=== PATIENT | female | born 1985 | race Caucasian/White ===

== ENCOUNTER 2018-06-20 15:36 | Inpatient (IN) | payer BC, SELFPAY ==
[2018-06-20] MEDS: Lactated Ringers 1,000 ML 150 ML IV (15:45)
[2018-06-20] MEDS: Normal Saline Flush 10 ML SYR IVP ×2 (16:44→18:05)
[2018-06-20] MEDS: DEXTROSE 5%-0.45% SALINE 1,000 ML 250 ML IV (18:48)
[2018-06-20] MEDS: DEXTROSE 5%-0.45% SALINE 1,000 ML 150 ML IV (22:49)
[2018-06-20] MEDS: Metoclopramide 10 MG/2 ML VIAL IV (22:49)
[2018-06-21] MEDS: Ondansetron 4 MG/2 ML VIAL IVP ×3 (02:05→17:49)
[2018-06-21] MEDS: Metoclopramide 10 MG/2 ML VIAL IV ×3 (07:55→22:13)
[2018-06-21] MEDS: Normal Saline 50 ML 200 ML ×3 (08:01→13:56)
[2018-06-21] MEDS: DEXTROSE 5%-0.45% SALINE 1,000 ML 150 ML IV (08:26)
[2018-06-21] MEDS: DEXTROSE 5%-0.45% SALINE 1,000 ML 120 ML IV (17:48)
[2018-06-22] MEDS: DEXTROSE 5%-0.45% SALINE 1,000 ML 120 ML IV ×3 (02:10→15:39)
[2018-06-22] MEDS: Metoclopramide 10 MG/2 ML VIAL IV ×3 (05:54→22:51)
[2018-06-22] MEDS: Normal Saline Flush 10 ML SYR IVP ×2 (05:55→15:39)
[2018-06-22 07:40] LABS: ALT 22 U/L (12-78); AST 19 U/L (15-37); Albumin 2.9 g/dL (3.4-5.0); Alkaline Phosphatase 39 U/L (46-116); Anion Gap 8.1 mmol/L (3-11); BUN 4 mg/dL (7-18); Bilirubin, Total 0.3 mg/dL (0.2-1.0); CO2 20.9 mmol/L (21.0-32.0); CREATININE 0.57 mg/dL (0.55-1.02); Calcium 7.8 mg/dL (8.5-10.1); Chloride 107 mmol/L (98-107); Glucose 95 mg/dL (70-100); Potassium 3.6 mmol/L (3.5-5.1); Sodium 136 mmol/L (136-145)
[2018-06-22 20:18] VITALS: BP 89/54; PULSE 54; RESP 18; TEMP 37.9; O2SAT 97
[2018-06-22] MEDS: Pantoprazole 40 MG VIAL IVP (21:01)
[2018-06-22] MEDS: Promethazine 25 MG TAB 6.25 MG PO (21:02)
[2018-06-23] MEDS: DEXTROSE 5%-0.45% SALINE 1,000 ML 120 ML IV (00:12)
[2018-06-23] MEDS: Metoclopramide 10 MG/2 ML VIAL IV ×3 (05:18→21:14)
--- NOTE | 2018-06-23 06:33 | W.PM.PROGNOT ---
Date of service: 06/22/18 Time of Service: 10:30 Assessment and Plan (1) Hyperemesis affecting , antepartum: Current visit: Yes Status: Acute Will continue antiemetics. If possible discharge home today. Will reevaluate in the afternoon. Subjective Interval history since last seen: Pain has had persistent nausea and dry heaving overnight. Unable to tolerate PO. No fevers chills. Has been out of bed within room. Objective Objective Clinical Data: Abnormal lab results 06/22/18 Range/Units 06:40 Carbon Dioxide 20.9 L (21.0-32.0) mmol/L BUN 4 L (7-18) mg/dL Calcium 7.8 L (8.5-10.1) mg/dL Alkaline Phosphatase 39 L (46-116) U/L Total Protein 6.0 L (6.4-8.2) g/dL Albumin 2.9 L (3.4-5.0) g/dL Vital Signs Temp 100.2 F H 06/22/18 20:18 Pulse 54 L 06/22/18 20:18 Resp 18 06/22/18 20:18 BP 89/54 L 06/22/18 20:18 Pulse Ox 97 06/22/18 20:18 Intake & Output 06/22/18 06/22/18 06/23/18 11:59 23:59 11:59 Intake Total 8 / 1718 1922 / 1922 1592 / 1592 Output Total 250 / 250 800 / 800 Balance 1718 / 1718 1672 / 1672 792 / 792 Weight 134 lb 7.712 oz Intake: IV 1718 / 1718 1921 / 1921 1592 / 1592 Output: Urine 250 / 250 800 / 800 Other: Urine Color Yellow Yellow Urine Appearance Clear Clear Urine Odor Normal None Voiding Methods Toilet Toilet Laboratory Results Sodium 136 mmol/L (136-145) 06/22/18 06:40 Potassium 3.6 mmol/L (3.5-5.1) 06/22/18 06:40 Chloride 107 mmol/L (98-107) 06/22/18 06:40 Carbon Dioxide 20.9 mmol/L (21.0-32.0) L 06/22/18 06:40 Anion Gap 8.1 mmol/L (3-11) 09/06/18 06:40 BUN 4 mg/dL (7-18) L 06/22/18 06:40 Creatinine 0.57 mg/dL (0.55-1.02) 06/22/18 06:40 Estimated GFR/1.73 m2 >= 60.00 (mL/min/1.73m2) 06/22/18 06:40 Glucose 95 mg/dL (70-100) 06/22/18 06:40 Calcium 7.8 mg/dL (8.5-10.1) L 06/22/18 06:40 Total Bilirubin 0.3 mg/dL (0.2-1.0) 06/22/18 06:40 AST 19 U/L (15-37) 06/22/18 06:40 ALT 22 U/L (12-78) 06/22/18 06:40 Alkaline Phosphatase 39 U/L (46-116) L 06/22/18 06:40 Total Protein 6.0 g/dL (6.4-8.2) L 06/22/18 06:40 Albumin 2.9 g/dL (3.4-5.0) L 06/22/18 06:40
[2018-06-23 07:25] VITALS: BP 84/52; PULSE 52; RESP 20; TEMP 36.7; O2SAT 97
[2018-06-23] MEDS: DEXTROSE 5%-0.45% SALINE 1,000 ML 150 ML IV ×2 (09:13→18:32)
[2018-06-23] MEDS: Normal Saline Flush 10 ML SYR IVP ×3 (09:14→16:37)
[2018-06-23 10:52] LABS: ALT 23 U/L (12-78); AST 21 U/L (15-37); Albumin 2.9 g/dL (3.4-5.0); Alkaline Phosphatase 38 U/L (46-116); Anion Gap 5.8 mmol/L (3-11); BUN 4 mg/dL (7-18); Bilirubin, Total 0.4 mg/dL (0.2-1.0); CO2 22.2 mmol/L (21.0-32.0); CREATININE 0.52 mg/dL (0.55-1.02); Calcium 7.9 mg/dL (8.5-10.1); Chloride 108 mmol/L (98-107); Glucose 96 mg/dL (70-100); Potassium 3.5 mmol/L (3.5-5.1); Sodium 136 mmol/L (136-145); Total Protein 5.9 g/dL (6.4-8.2)
--- NOTE | 2018-06-23 10:59 | PHARADMIT ---
Addendum entered by Chidi Marie III 06/24/18 11:17: Pharmacy Note Subjective First Trimester patient with Hyperemesis, unable to eat. Provider has decided to implment TPN to meet nutritional neeeds Objective VS-OK pain: 6/10 K+3.2 Na-138 SCr-0.47 ALBUMIN- 2.9 bg-99 No BM Assessment Basic TPN formula with Fats (separate) Plan Watch Lytes Original Note: Admission Pharmacy Clinical Review Mild Hyperemesis in 1st Trimester Code Status Full Code Current Weight wgt- 61 kg Renally Cleared and Narrow Therapeutic Index Meds CrCl~ 92.75 mL/min Meds-OK QTc Value / Action Taken program na BP Control, Fever BP- 84/52 Tmax-37.9C Electrolytes reviewed Na- 136 K+3.5 DVT Prophylaxis nO Opiate Usage / Scheduled Bowel Regimen Ordered No No Plt/SCr for Heparin / Enoxaparin SCr-0.52 INR for Warfarin na H/H stable, WBC/Bands na Antibiotic appropriateness none Cultures and Sensitivities none Surgical ABX d/c within 24 hr none DM control / Insulin Dosing BG- 96 Heart Failure (Check EF%) (ASH's, B-Block, Diuretics) None IV to PO Switch No Home Meds Reviewed Yes Home Meds Not Ordered , Sertraline, Tylenl-PM Comments
[2018-06-23] MEDS: Butalbital/Acetaminophen/Caffeine 50/325/40 TAB PO (11:48)
[2018-06-23 16:33] VITALS: BP 88/50; PULSE 65; RESP 17; TEMP 36.7; O2SAT 100
[2018-06-23] MEDS: fentaNYL 100 MCG/2 ML VIAL 50 MCG IVP (16:37)
[2018-06-23] MEDS: Promethazine 25 MG TAB 6.25 MG PO ×2 (16:38→23:59)
--- NOTE | 2018-06-23 17:32 | DI.RAD_ITS ---
SYMPTOM/DIAGNOSIS: POST PICC LINE PLACEMENT PORTABLE CHEST: There are no prior comparison exams. The heart size is normal. A PICC line is seen with the tip projecting in the superior vena cava. The lungs are suboptimally inflated but grossly clear. No pneumothorax is seen. IMPRESSION: Satisfactory placement of PICC line.
--- NOTE | 2018-06-23 17:35 | NUR.NOTE ---
Nursing Note: At 1730 on 06/23/18, this RN took a verbal consent/TVO readback from Artur Noel MD to allow the radiology clerk to obtain an x-ray to assess for correct PICC line placement. Per MD instruction, radiology clerk to shield pt.'s abdomen. On radiology clerk's form, this RN wrote a note stating that verbal consent/TVO readback had been obtained. RN informed radiology clerk of MD instructions. RN will reassess as necessary.
--- NOTE | 2018-06-23 17:52 | DI.VRAD_ITS ---
EXAM: XR Chest, 1 View EXAM DATE/TIME: 06/23/2018 5:12 PM CLINICAL HISTORY: 33 years old, female; Device placement; Picc TECHNIQUE: XR of the chest, 1 view. COMPARISON: No relevant prior studies available. FINDINGS: Tubes, catheters and devices: There is a right-sided PICC line with its tip at the level of the SVC. Lungs: Unremarkable. No consolidation. Pleural space: Unremarkable. No pleural effusion. No pneumothorax. Heart/Mediastinum: Unremarkable. No cardiomegaly. Bones/joints: Unremarkable for patient's age. IMPRESSION: Right-sided PICC line in place. Dictated and Authenticated by: Tao Tavera MD. Ordering:ESMER YAN MD
[2018-06-23 19:42] LABS: Abs Immature Grans 0.01 k/cumm (0.0-0.09); Absolute Basophil Count 0.02 k/cumm (0.0-0.2); Absolute Eosinophil Count 0.08 k/cumm (0.0-0.7); Absolute Lymphocyte Count 2.88 k/cumm (1.2-3.4); Absolute Monocyte Count 0.61 k/cumm (0.11-0.7); Absolute Neutrophil Count 2.65 k/cumm (1.2-6.7); Basophils % 0.3; Eosinophils % 1.3; HCT 32.6 % (36.0-46.0); HGB 11.1 g/dL (12.0-15.5); Immature Grans % 0.2; Lymphocytes % 46.1; Mean Corpuscular Hemoglobin 29.8 pg (27.0-33.0); Mean Corpuscular Volume 87.6 fL (80-95); Mean Platelet Volume 10.1 fL (8.0-11.0); Monocytes % 9.8; Neutrophils % 42.3; Platelet Count 182 x1000/uL (130-400); RBC 3.72 m/cumm (4.00-5.20); RBC Distribution Width 13.6 % (11.7-14.6); White Blood Cell Count 6.25 k/cumm (4.4-10.8)
[2018-06-23 19:44] LABS: ALT 22 U/L (12-78); AST 18 U/L (15-37); Albumin 3.1 g/dL (3.4-5.0); Alkaline Phosphatase 41 U/L (46-116); Anion Gap 7.7 mmol/L (3-11); BUN 3 mg/dL (7-18); Bilirubin, Total 0.4 mg/dL (0.2-1.0); CO2 22.3 mmol/L (21.0-32.0); Calcium 8.1 mg/dL (8.5-10.1); Chloride 107 mmol/L (98-107); Glucose 76 mg/dL (70-100); Potassium 3.4 mmol/L (3.5-5.1); Sodium 137 mmol/L (136-145); Total Protein 5.8 g/dL (6.4-8.2)
[2018-06-23] MEDS: Pantoprazole 40 MG VIAL IVP (21:13)
[2018-06-23 23:47] VITALS: BP 85/47; PULSE 47; RESP 16; TEMP 37.4; O2SAT 99
[2018-06-24] MEDS: DEXTROSE 5%-0.45% SALINE 1,000 ML 150 ML IV ×2 (00:32→06:37)
[2018-06-24 00:39] VITALS: PULSE 52
[2018-06-24] MEDS: Metoclopramide 10 MG/2 ML VIAL IV ×3 (06:28→22:08)
[2018-06-24 07:48] LABS: ALT 22 U/L (12-78); AST 17 U/L (15-37); Albumin 2.9 g/dL (3.4-5.0); Alkaline Phosphatase 40 U/L (46-116); Anion Gap 9.4 mmol/L (3-11); BUN 3 mg/dL (7-18); Bilirubin, Total 0.5 mg/dL (0.2-1.0); CO2 21.6 mmol/L (21.0-32.0); CREATININE 0.47 mg/dL (0.55-1.02); Calcium 7.7 mg/dL (8.5-10.1); Chloride 107 mmol/L (98-107); Glucose 99 mg/dL (70-100); Potassium 3.2 mmol/L (3.5-5.1); Sodium 138 mmol/L (136-145); Total Protein 5.8 g/dL (6.4-8.2)
[2018-06-24 07:50] VITALS: BP 82/46; PULSE 49; RESP 16; TEMP 37.3; O2SAT 98
--- NOTE | 2018-06-24 07:54 | PDOC.CMIN ---
- If Service Date Differs Date of service: 06/24/18 Time of Service: 07:55 Care Management Initial Assess REASON FOR HOSPITALIZATION:: Hyperemesis first trimester. 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 PREVIOUS FUNCTIONAL STATUS/SOCIAL/FAMILY SUPPORTS:: Jerome lives in her own home with her spouse Martin and her three year old son. 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 She is independent with ADL's and transportation. She reports a suppotive family. CURRENT FUNCTIONAL STATUS:: Jerome makes good eye contact she states she continues to have nausea. She is being treated with multiple antimetics and she now has a PICC line with TPN. She states that she had hyperemsis in the past with her previous . She states the last time it lasted about 4 months. ADVANCE DIRECTIVES:: None on file Has patient been provided with information about the portal?: Yes Did the patient sign up for the portal?: No (previously signed up) CODE STATUS:: Full Code INSURANCE COVERAGE / FINANCIAL ISSUES:: BCBS CURRENT HOME/COMMUNITY SERVICES/EQUIPMENT:: None currently PRIMARY CARE PHYSICIAN:: Lucia Taylor APRN POTENTIAL DISCHARGE NEEDS:: Follow up appointment with OBGYN PATIENT/FAMILY EDUCATION NEEDS:: Discharge education, medications, follow up plan of care, ask me three education and self management discussion. ANTICIPATED BARRIERS TO DISCHARGE:: None identified. TRANSPORTATION:: Via private car with spouse at time of discharge. PLAN:: Jerome is receving antimetics for continued nausea. She had a PICC line placed on 06/23/18. She has been started on TPN. Anticipate she will not need addtional services at time of discharge. CM to continue to provide support to Pt, family and care team ongoing discharge planning.
--- NOTE | 2018-06-24 07:57 | W.PM.PROGNOT ---
Date of service: 06/24/18 Time of Service: 07:57 Assessment and Plan (1) Hyperemesis affecting , antepartum: Current visit: Yes Status: Acute (2) Poor nutritional intake affecting : Current visit: Yes Status: Acute I had a lengthy discussion with the patient and her last evening. I expressed significant concerns regarding her poor nutritional intake over the last week. My recommendation was to proceed with PICC line placement and institution of TPN at least in the short term. In terms of discharge goals, the patient must be able to tolerate PO to at least some degree even if her nausea and vomiting is not completely resolved which in all likelihood it will not be. Subjective Interval history since last seen: Patient continues to have nausea with poor PO intake overnight. She did tolerate some ensure last evening and this morning. She does report that she feels week and dizzy. Headache yesterday is essentially resolved. PICC line was placed successfully last evening as well. Objective Objective Clinical Data: Abnormal lab results 06/23/18 06/23/18 06/23/18 Range/Units 06:45 18:30 18:30 RBC 3.72 L (4.00-5.20) m/cumm Hgb 11.1 L (12.0-15.5) g/dL Hct 32.6 L (36.0-46.0) % Potassium 3.4 L (3.5-5.1) mmol/L Chloride 108 H (98-107) mmol/L BUN 4 L 3 L (7-18) mg/dL Creatinine 0.52 L 0.50 L (0.55-1.02) mg/dL Calcium 7.9 L 8.1 L (8.5-10.1) mg/dL Alkaline Phosphatase 38 L 41 L (46-116) U/L Total Protein 5.9 L 5.8 L (6.4-8.2) g/dL Albumin 2.9 L 3.1 L (3.4-5.0) g/dL 06/24/18 Range/Units 06:40 RBC (4.00-5.20) m/cumm Hgb (12.0-15.5) g/dL Hct (36.0-46.0) % Potassium 3.2 L (3.5-5.1) mmol/L Chloride (98-107) mmol/L BUN 3 L (7-18) mg/dL Creatinine 0.47 L (0.55-1.02) mg/dL Calcium 7.7 L (8.5-10.1) mg/dL Alkaline Phosphatase 40 L (46-116) U/L Total Protein 5.8 L (6.4-8.2) g/dL Albumin 2.9 L (3.4-5.0) g/dL Vital Signs Temp 99.3 F 06/23/18 23:47 Pulse 52 L 06/24/18 00:39 Resp 16 06/23/18 23:47 BP 85/47 L 06/23/18 23:47 Pulse Ox 99 06/23/18 23:47 Intake & Output 06/23/18 06/23/18 06/24/18 11:59 23:59 11:59 Intake Total 2712 / 2712 1000 / 1000 1812.5 / 1812.5 Output Total 800 / 800 450 / 450 Balance 1912 / 1912 550 / 550 1812.5 / 1812.5 Intake: IV 2592 / 2592 1000 / 1000 1812.5 / 1812.5 Oral 120 / 120 Output: Urine 800 / 800 450 / 450 Other: Urine Color Yellow Urine Appearance Clear Clear Urine Odor None None Comment Patient states she has been OOB to toilet regularly and voiding in adequate amounts. She denies any urinary issues. Voiding Methods Toilet Toilet Laboratory Results WBC 6.25 k/cumm (4.4-10.8) 06/23/18 18:30 RBC 3.72 m/cumm (4.00-5.20) L 06/23/18 18:30 Hgb 11.1 g/dL (12.0-15.5) L 06/23/18 18:30 Hct 32.6 % (36.0-46.0) L 06/23/18 18:30 MCV 87.6 fL (80-95) 06/23/18 18:30 MCH 29.8 pg (27.0-33.0) 06/23/18 18:30 MCHC 34.0 g/dL (32.0-36.0) 06/23/18 18:30 RDW 13.6 % (11.7-14.6) 06/23/18 18:30 Plt Count 182 x1000/uL (130-400) 06/23/18 18:30 MPV 10.1 fL (8.0-11.0) 06/23/18 18:30 Immature Gran % 0.2 06/23/18 18:30 Neutrophils % 42.3 06/23/18 18:30 Lymphocytes % 46.1 06/23/18 18:30 Monocytes % 9.8 06/23/18 18:30 Eosinophils % 1.3 06/23/18 18:30 Basophils % 0.3 06/23/18 18:30 Absolute Neutrophils 2.65 k/cumm (1.2-6.7) 06/23/18 18:30 Absolute Lymphocytes 2.88 k/cumm (1.2-3.4) 06/23/18 18:30 Absolute Monocytes 0.61 k/cumm (0.11-0.7) 06/23/18 18:30 Absolute Eosinophils 0.08 k/cumm (0.0-0.7) 06/23/18 18:30 Absolute Basophils 0.02 k/cumm (0.0-0.2) 06/23/18 18:30 Sodium 138 mmol/L (136-145) 06/24/18 06:40 Potassium 3.2 mmol/L (3.5-5.1) L 06/24/18 06:40 Chloride 107 mmol/L (98-107) 06/24/18 06:40 Carbon Dioxide 21.6 mmol/L (21.0-32.0) 06/24/18 06:40 Anion Gap 9.4 mmol/L (3-11) 06/24/18 06:40 BUN 3 mg/dL (7-18) L 06/24/18 06:40 Creatinine 0.47 mg/dL (0.55-1.02) L 06/24/18 06:40 Estimated GFR/1.73 m2 >= 60.00 (mL/min/1.73m2) 06/24/18 06:40 Glucose 99 mg/dL (70-100) 06/24/18 06:40 Calcium 7.7 mg/dL (8.5-10.1) L 06/24/18 06:40 Total Bilirubin 0.5 mg/dL (0.2-1.0) 06/24/18 06:40 AST 17 U/L (15-37) 06/24/18 06:40 ALT 22 U/L (12-78) 06/24/18 06:40 Alkaline Phosphatase 40 U/L (46-116) L 06/24/18 06:40 Total Protein 5.8 g/dL (6.4-8.2) L 06/24/18 06:40 Albumin 2.9 g/dL (3.4-5.0) L 06/24/18 06:40
[2018-06-24] MEDS: Normal Saline Flush 10 ML SYR IVP ×3 (08:26→16:07)
--- NOTE | 2018-06-24 08:30 | INITIAL_ITS ---
- If Service Date Differs Date of service: 06/24/18 Time of Service: 07:55 Care Management Initial Assess REASON FOR HOSPITALIZATION:: Hyperemesis first trimester. 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 PREVIOUS FUNCTIONAL STATUS/SOCIAL/FAMILY SUPPORTS:: Jerome lives in her own home with her spouse Martin and her three year old son. 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 She is independent with ADL's and transportation. She reports a suppotive family. CURRENT FUNCTIONAL STATUS:: Jerome makes good eye contact she states she continues to have nausea. She is being treated with multiple antimetics and she now has a PICC line with TPN. She states that she had hyperemsis in the past with her previous . She states the last time it lasted about 4 months. ADVANCE DIRECTIVES:: None on file Has patient been provided with information about the portal?: Yes Did the patient sign up for the portal?: No (previously signed up) CODE STATUS:: Full Code INSURANCE COVERAGE / FINANCIAL ISSUES:: BCBS CURRENT HOME/COMMUNITY SERVICES/EQUIPMENT:: None currently PRIMARY CARE PHYSICIAN:: Lucia Taylor APRN POTENTIAL DISCHARGE NEEDS:: Follow up appointment with OBGYN PATIENT/FAMILY EDUCATION NEEDS:: Discharge education, medications, follow up plan of care, ask me three education and self management discussion. ANTICIPATED BARRIERS TO DISCHARGE:: None identified. TRANSPORTATION:: Via private car with spouse at time of discharge. PLAN:: Jerome is receving antimetics for continued nausea. She had a PICC line placed on 06/23/18. She has been started on TPN. Anticipate she will not need addtional services at time of discharge. CM to continue to provide support to Pt , family and care team ongoing discharge planning.
[2018-06-24] MEDS: Butalbital/Acetaminophen/Caffeine 50/325/40 TAB PO (11:03)
[2018-06-24 11:34] VITALS: BP 75/32; BP 78/45; BP 87/48; PULSE 56; PULSE 72; PULSE 94
[2018-06-24 14:16] VITALS: BP 91/55; PULSE 54; RESP 20; TEMP 37.5; O2SAT 99
[2018-06-24 15:56] VITALS: BP 100/58; PULSE 60; RESP 18; TEMP 37.4; O2SAT 97
--- NOTE | 2018-06-24 16:05 | W.PM.PROGNOT ---
Date of service: 06/24/18 Time of Service: 16:05 Assessment and Plan (1) Hyperemesis affecting , antepartum: Current visit: Yes Status: Acute (2) Poor nutritional intake affecting : Current visit: Yes Status: Acute Will check labs this evening. If able to tolerate PO will consider discharge home tomorrow. If unable to tolerate then will resume TPN again tomorrow and hold an additional day. I would recommend sending the patient home with PICC line in place at least for the time being in the event that venous access be required again in the near future. Subjective Interval history since last seen: Doing somewhat better this afternoon. Nausea is diminished. Has had no vomiting and has been able to tolerate Ensure Objective Objective Clinical Data: Abnormal lab results 06/23/18 06/23/18 06/24/18 Range/Units 18:30 18:30 06:40 RBC 3.72 L (4.00-5.20) m/cumm Hgb 11.1 L (12.0-15.5) g/dL Hct 32.6 L (36.0-46.0) % Potassium 3.4 L 3.2 L (3.5-5.1) mmol/L BUN 3 L 3 L (7-18) mg/dL Creatinine 0.50 L 0.47 L (0.55-1.02) mg/dL Calcium 8.1 L 7.7 L (8.5-10.1) mg/dL Alkaline Phosphatase 41 L 40 L (46-116) U/L Total Protein 5.8 L 5.8 L (6.4-8.2) g/dL Albumin 3.1 L 2.9 L (3.4-5.0) g/dL Vital Signs Temp 99.3 F 06/24/18 15:56 Pulse 60 06/24/18 15:56 Resp 18 06/24/18 15:56 BP 100/58 L 06/24/18 15:56 Pulse Ox 97 06/24/18 15:56 Intake & Output 06/23/18 06/24/18 06/24/18 23:59 11:59 23:59 Intake Total 1000 / 1000 2450.0 / 2450.0 240 / 240 Output Total 450 / 450 700 / 700 Balance 550 / 550 1750.0 / 1750.0 240 / 240 Intake: IV 1000 / 1000 2450.0 / 2450.0 Oral 240 / 240 Output: Urine 450 / 450 700 / 700 Other: Urine Color Pale Urine Appearance Clear Clear Urine Odor None Comment Patient states she has been OOB to toilet regularly and voiding in adequate amounts. She denies any urinary issues. Voiding Methods Toilet Toilet Laboratory Results WBC 6.25 k/cumm (4.4-10.8) 06/23/18 18:30 RBC 3.72 m/cumm (4.00-5.20) L 06/23/18 18:30 Hgb 11.1 g/dL (12.0-15.5) L 06/23/18 18:30 Hct 32.6 % (36.0-46.0) L 06/23/18 18:30 MCV 87.6 fL (80-95) 06/23/18 18:30 MCH 29.8 pg (27.0-33.0) 06/23/18 18:30 MCHC 34.0 g/dL (32.0-36.0) 06/23/18 18:30 RDW 13.6 % (11.7-14.6) 06/23/18 18:30 Plt Count 182 x1000/uL (130-400) 06/23/18 18:30 MPV 10.1 fL (8.0-11.0) 06/23/18 18:30 Immature Gran % 0.2 06/23/18 18:30 Neutrophils % 42.3 06/23/18 18:30 Lymphocytes % 46.1 06/23/18 18:30 Monocytes % 9.8 06/23/18 18:30 Eosinophils % 1.3 06/23/18 18:30 Basophils % 0.3 06/23/18 18:30 Absolute Neutrophils 2.65 k/cumm (1.2-6.7) 06/23/18 18:30 Absolute Lymphocytes 2.88 k/cumm (1.2-3.4) 06/23/18 18:30 Absolute Monocytes 0.61 k/cumm (0.11-0.7) 06/23/18 18:30 Absolute Eosinophils 0.08 k/cumm (0.0-0.7) 06/23/18 18:30 Absolute Basophils 0.02 k/cumm (0.0-0.2) 06/23/18 18:30 Sodium 138 mmol/L (136-145) 06/24/18 06:40 Potassium 3.2 mmol/L (3.5-5.1) L 06/24/18 06:40 Chloride 107 mmol/L (98-107) 06/24/18 06:40 Carbon Dioxide 21.6 mmol/L (21.0-32.0) 06/24/18 06:40 Anion Gap 9.4 mmol/L (3-11) 06/24/18 06:40 BUN 3 mg/dL (7-18) L 06/24/18 06:40 Creatinine 0.47 mg/dL (0.55-1.02) L 06/24/18 06:40 Estimated GFR/1.73 m2 >= 60.00 (mL/min/1.73m2) 06/24/18 06:40 Glucose 99 mg/dL (70-100) 06/24/18 06:40 Calcium 7.7 mg/dL (8.5-10.1) L 06/24/18 06:40 Total Bilirubin 0.5 mg/dL (0.2-1.0) 06/24/18 06:40 AST 17 U/L (15-37) 06/24/18 06:40 ALT 22 U/L (12-78) 06/24/18 06:40 Alkaline Phosphatase 40 U/L (46-116) L 06/24/18 06:40 Total Protein 5.8 g/dL (6.4-8.2) L 06/24/18 06:40 Albumin 2.9 g/dL (3.4-5.0) L 06/24/18 06:40
[2018-06-24] MEDS: Promethazine 25 MG TAB 6.25 MG PO (18:47)
[2018-06-24 20:28] LABS: Abs Immature Grans 0.02 k/cumm (0.0-0.09); Absolute Basophil Count 0.01 k/cumm (0.0-0.2); Absolute Monocyte Count 0.62 k/cumm (0.11-0.7); Absolute Neutrophil Count 2.98 k/cumm (1.2-6.7); Basophils % 0.2; Eosinophils % 1.5; HCT 32.1 % (36.0-46.0); HGB 11.1 g/dL (12.0-15.5); Immature Grans % 0.3; Lymphocytes % 43.7; Mean Corp. HGB Concentration 34.6 g/dL (32.0-36.0); Mean Corpuscular Hemoglobin 30.3 pg (27.0-33.0); Mean Corpuscular Volume 87.7 fL (80-95); Mean Platelet Volume 9.4 fL (8.0-11.0); Monocytes % 9.4; Neutrophils % 44.9; Platelet Count 158 x1000/uL (130-400); RBC 3.66 m/cumm (4.00-5.20); RBC Distribution Width 13.4 % (11.7-14.6); White Blood Cell Count 6.63 k/cumm (4.4-10.8)
[2018-06-24] MEDS: Pantoprazole 40 MG VIAL IVP (20:32)
[2018-06-24 20:35] LABS: ALT 21 U/L (12-78); AST 15 U/L (15-37); Albumin 2.9 g/dL (3.4-5.0); Alkaline Phosphatase 39 U/L (46-116); Anion Gap 9.6 mmol/L (3-11); BUN 6 mg/dL (7-18); Bilirubin, Total 0.2 mg/dL (0.2-1.0); CO2 21.4 mmol/L (21.0-32.0); CREATININE 0.47 mg/dL (0.55-1.02); Chloride 108 mmol/L (98-107); Glucose 90 mg/dL (70-100); Magnesium 1.5 mg/dL (1.8-2.4); PHOSPHORUS 2.9 mg/dL (2.6-4.7); Potassium 3.3 mmol/L (3.5-5.1); Sodium 139 mmol/L (136-145); Total Protein 5.8 g/dL (6.4-8.2)
[2018-06-25 04:08] VITALS: BP 83/48; PULSE 58; RESP 18; TEMP 36.8; O2SAT 98
[2018-06-25] MEDS: Metoclopramide 10 MG/2 ML VIAL IV (06:38)
[2018-06-25] MEDS: Butalbital/Acetaminophen/Caffeine 50/325/40 TAB PO (06:47)
[2018-06-25 07:18] LABS: INR 1.1 (1.0-3.5); Prothrombin Time 10.9 sec (9.3-10.8)
--- NOTE | 2018-06-25 07:46 | W.PM.PROGNOT ---
Date of service: 06/25/18 Time of Service: 07:46 Assessment and Plan (1) Poor nutritional intake affecting : Current visit: Yes Status: Acute (2) Hyperemesis affecting , antepartum: Current visit: Yes Status: Acute (3) Hypomagnesemia: Current visit: Yes Status: Acute (4) Hypokalemia: Current visit: Yes Status: Acute The patient continues to have difficulty with nausea but PO intake has improved. She received TPN overnight and did somewhat better. Mornings and evenings are somewhat difficult for her. Her headache that has recurred daily is somewhat of a new phenomenon for her but I feel that this may simply be related to lack of sleep while in the hospital. If this persists beyond admission further evaluation can be made. I would recommend maintaining her PICC beyond this admission in the event that she should need fluids or further TPN. Once her symptoms improve and she can reliably tolerate PO then the PICC can be removed. TPN is stopped today. Will replace K, and MG prior to discharge. I will plan on discussing discharge with her today to ensure that they are comfortable with the plan. I would recommend that she take off work in the short term until her strength improves. (5) Headache: Current visit: Yes Status: Acute Subjective Interval history since last seen: Patient reports another headache this morning and some increased nausea but no vomiting. Her headache did respond well to Fioricet. She had been able to tolerate Ensure through the day yesterday and did have improved PO intake. She is extremely frustrated with her current situation and is upset about missing obligations at work. Objective Objective Clinical Data: Abnormal lab results 06/24/18 06/24/18 06/24/18 Range/Units 06:40 20:10 20:10 RBC 3.66 L (4.00-5.20) m/cumm Hgb 11.1 L (12.0-15.5) g/dL Hct 32.1 L (36.0-46.0) % PT (9.3-10.8) sec Potassium 3.2 L 3.3 L (3.5-5.1) mmol/L Chloride 108 H (98-107) mmol/L BUN 3 L 6 L (7-18) mg/dL Creatinine 0.47 L 0.47 L (0.55-1.02) mg/dL Calcium 7.7 L 8.0 L (8.5-10.1) mg/dL Magnesium 1.5 L (1.8-2.4) mg/dL Alkaline Phosphatase 40 L 39 L (46-116) U/L Total Protein 5.8 L 5.8 L (6.4-8.2) g/dL Albumin 2.9 L 2.9 L (3.4-5.0) g/dL 06/25/18 Range/Units 06:45 RBC (4.00-5.20) m/cumm Hgb (12.0-15.5) g/dL Hct (36.0-46.0) % PT 10.9 H (9.3-10.8) sec Potassium (3.5-5.1) mmol/L Chloride (98-107) mmol/L BUN (7-18) mg/dL Creatinine (0.55-1.02) mg/dL Calcium (8.5-10.1) mg/dL Magnesium (1.8-2.4) mg/dL Alkaline Phosphatase (46-116) U/L Total Protein (6.4-8.2) g/dL Albumin (3.4-5.0) g/dL Vital Signs Temp 98.2 F 06/25/18 04:08 Pulse 58 L 06/25/18 04:08 Resp 18 06/25/18 04:08 BP 83/48 L 06/25/18 04:08 Pulse Ox 98 06/25/18 04:08 Intake & Output 06/24/18 06/24/18 06/25/18 11:59 23:59 11:59 Intake Total 2450.0 / 2450.0 779.5 / 779.5 400 / 400 Output Total 700 / 700 Balance 1750.0 / 1750.0 779.5 / 779.5 400 / 400 Intake: IV 2450.0 / 2450.0 439.5 / 439.5 Oral 340 / 340 400 / 400 Output: Urine 700 / 700 Other: Urine Color Pale Urine Appearance Clear Clear Stool Size Moderate Stool Characteristics Liquid Voiding Methods Toilet Laboratory Results WBC 6.63 k/cumm (4.4-10.8) 06/24/18 20:10 RBC 3.66 m/cumm (4.00-5.20) L 06/24/18 20:10 Hgb 11.1 g/dL (12.0-15.5) L 06/24/18 20:10 Hct 32.1 % (36.0-46.0) L 06/24/18 20:10 MCV 87.7 fL (80-95) 06/24/18 20:10 MCH 30.3 pg (27.0-33.0) 06/24/18 20:10 MCHC 34.6 g/dL (32.0-36.0) 06/24/18 20:10 RDW 13.4 % (11.7-14.6) 06/24/18 20:10 Plt Count 158 x1000/uL (130-400) 06/24/18 20:10 MPV 9.4 fL (8.0-11.0) 06/24/18 20:10 Immature Gran % 0.3 06/24/18 20:10 Neutrophils % 44.9 06/24/18 20:10 Lymphocytes % 43.7 06/24/18 20:10 Monocytes % 9.4 06/24/18 20:10 Eosinophils % 1.5 06/24/18 20:10 Basophils % 0.2 06/24/18 20:10 Absolute Neutrophils 2.98 k/cumm (1.2-6.7) 06/24/18 20:10 Absolute Lymphocytes 2.90 k/cumm (1.2-3.4) 06/24/18 20:10 Absolute Monocytes 0.62 k/cumm (0.11-0.7) 06/24/18 20:10 Absolute Eosinophils 0.10 k/cumm (0.0-0.7) 06/24/18 20:10 Absolute Basophils 0.01 k/cumm (0.0-0.2) 06/24/18 20:10 PT 10.9 sec (9.3-10.8) H 06/25/18 06:45 INR 1.1 (1.0-3.5) 06/25/18 06:45 Sodium 139 mmol/L (136-145) 06/24/18 20:10 Potassium 3.3 mmol/L (3.5-5.1) L 06/24/18 20:10 Chloride 108 mmol/L (98-107) H 06/24/18 20:10 Carbon Dioxide 21.4 mmol/L (21.0-32.0) 06/24/18 20:10 Anion Gap 9.6 mmol/L (3-11) 06/24/18 20:10 BUN 6 mg/dL (7-18) L 06/24/18 20:10 Creatinine 0.47 mg/dL (0.55-1.02) L 06/24/18 20:10 Estimated GFR/1.73 m2 >= 60.00 (mL/min/1.73m2) 06/24/18 20:10 Glucose 90 mg/dL (70-100) 06/24/18 20:10 Calcium 8.0 mg/dL (8.5-10.1) L 06/24/18 20:10 Phosphorus 2.9 mg/dL (2.6-4.7) 06/24/18 20:10 Magnesium 1.5 mg/dL (1.8-2.4) L 06/24/18 20:10 Total Bilirubin 0.2 mg/dL (0.2-1.0) 06/24/18 20:10 AST 15 U/L (15-37) 06/24/18 20:10 ALT 21 U/L (12-78) 06/24/18 20:10 Alkaline Phosphatase 39 U/L (46-116) L 06/24/18 20:10 Total Protein 5.8 g/dL (6.4-8.2) L 06/24/18 20:10 Albumin 2.9 g/dL (3.4-5.0) L 06/24/18 20:10
[2018-06-25] MEDS: Normal Saline Flush 10 ML SYR IVP (08:11)
[2018-06-25] MEDS: MAGNESIUM SULFATE 1 GM/100 ML BAG IVPB (08:11)
[2018-06-25 08:19] VITALS: BP 86/49; PULSE 65; RESP 18; TEMP 37.3; O2SAT 99
[2018-06-25] MEDS: Sertraline 50 MG TAB PO (08:33)
[2018-06-25] MEDS: Prenatal Multivitamin w/CA,FE TAB 1 TAB PO (08:52)
[2018-06-25] MEDS: Ondansetron O.D.T. 4 MG TABEF PO (08:52)
[2018-06-25] MEDS: POTASSIUM CHLORIDE 10 MEQ/100 ML BAG 100 MEQ IVPB (09:24)
[2018-06-25] MEDS: DEXTROSE 5%-LACTATED RINGERS 1,000 ML 30 ML IV (09:25)
[2018-06-26 16:17] LABS: Ionized Calcium 1.14 mmol/L (1.12-1.32)
[2018-06-27 09:33] LABS: Prealbumin 17 mg/dL (20-40)
[2018-08-15] MEDS: Normal Saline Flush 10 ML SYR IVP (14:10)
== END 2018-06-25 11:58 | disposition home or self-care (01) | DRG 781 ==
LOC: OBS 21:08 → MS 06-22 09:08
PROVIDERS: Obstetrics & Gynecology; Admitting Provider Obstetrics & Gynecology Gynecology; PCP Nurse Practitioner Family; Visit Provider Obstetrics & Gynecology
DX: O21.1 Hyperemesis gravidarum with metabolic disturbance (principal); O25.11 Malnutrition in pregnancy, first trimester; E83.42 Hypomagnesemia; E87.6 Hypokalemia; R51 Headache; Z3A.12 12 weeks gestation of pregnancy
CPT/HCPCS: 36415; 80053; 99233; NC; 71045; 82330; 83735; 84100; 84134; 85025; 85610; G0378; J2405; J2765; J3010; J3475; J3480

== ENCOUNTER 2018-06-27 08:31 | Observation (INO) | payer BC, SELFPAY ==
[2018-06-27] MEDS: Normal Saline Flush 10 ML SYR IVP ×2 (09:17→10:07)
[2018-06-27 09:23] LABS: Abs Immature Grans 0.02 k/cumm (0.0-0.09); Absolute Basophil Count 0.02 k/cumm (0.0-0.2); Absolute Lymphocyte Count 2.83 k/cumm (1.2-3.4); Absolute Monocyte Count 0.53 k/cumm (0.11-0.7); Absolute Neutrophil Count 3.26 k/cumm (1.2-6.7); Basophils % 0.3; Eosinophils % 1.5; HCT 33.4 % (36.0-46.0); HGB 11.6 g/dL (12.0-15.5); Immature Grans % 0.3; Lymphocytes % 41.9; Mean Corp. HGB Concentration 34.7 g/dL (32.0-36.0); Mean Corpuscular Hemoglobin 30.4 pg (27.0-33.0); Mean Corpuscular Volume 87.4 fL (80-95); Mean Platelet Volume 9.6 fL (8.0-11.0); Monocytes % 7.8; Neutrophils % 48.2; Platelet Count 183 x1000/uL (130-400); RBC 3.82 m/cumm (4.00-5.20); RBC Distribution Width 13.4 % (11.7-14.6); White Blood Cell Count 6.76 k/cumm (4.4-10.8)
[2018-06-27 09:32] LABS: ALT 19 U/L (12-78); AST 17 U/L (15-37); Albumin 3.2 g/dL (3.4-5.0); Alkaline Phosphatase 51 U/L (46-116); Anion Gap 7.9 mmol/L (3-11); BUN 7 mg/dL (7-18); Bilirubin, Total 0.4 mg/dL (0.2-1.0); CO2 25.1 mmol/L (21.0-32.0); CREATININE 0.54 mg/dL (0.55-1.02); Calcium 8.2 mg/dL (8.5-10.1); Chloride 105 mmol/L (98-107); Glucose 81 mg/dL (70-100); Magnesium 1.7 mg/dL (1.8-2.4); PHOSPHORUS 3.9 mg/dL (2.6-4.7); Potassium 3.3 mmol/L (3.5-5.1); Sodium 138 mmol/L (136-145); Total Protein 6.5 g/dL (6.4-8.2)
[2018-06-27] MEDS: Hydrocortisone SOD SUC. 100 MG VIAL IVP ×2 (10:05→21:59)
[2018-06-27] MEDS: Normal Saline 500 ML 200 ML IV (13:00)
[2018-06-27 13:50] LABS: Bilirubin Negative (Negative); Blood Negative (Negative); Clarity Clear; Glucose Negative (Negative); Ketones Negative (Negative); Leukocyte Esterase Small (Negative); Nitrite Negative (Negative); Urobilinogen 0.2 EU/dL (Up TO 0.2)
[2018-06-27] MEDS: Metoclopramide 10 MG/2 ML VIAL IVP (13:55)
--- NOTE | 2018-06-27 14:29 | SATEXT_ITS ---
Assessment: Nutrition consult for hyperemesis at 13 weeks gestation. Ms. Robledo is requiring TPN again to meet her nutritional needs as she has been unable to eat anything significant for greater than one week. She had one day of TPN when she was hospitalized here last week. Her diet order has been changed to regular. Ms. Robledo reports that she does not want to take anything by mouth at this point. She has not been weighed today. She reports that her weight a week ago was 128lbs/58kg. She also reports that she believes 128 lbs is her pregravid weight. She is 65. Her pregravid BMI is 21 which is WNL, therefore a 25-35 pound weight gain would be anticipated. Her estimated energy needs in the first trimester are 1740 kcal/day (30 kcal/kg/ day) and 58 grams of protein per day (1.0g/kg/day)-pregravid wt Estimated energy needs in the second trimester are 2088 kcal/day (36 kcal/kg/day ) and 58 grams of protein per day (1.0g/kg/day)-pregravid wt Ms. Robledo's TPN regimen currently provides 1920 kcals and 100 grams of protein. Nutritional Diagnosis: Inadequate intake of oral foods and fluids related to hyperemesis. Intervention: TPN has been initiated. I think the nutritional provisions of the TPN are currently adequate. We will have to see for how long she requires this therapy as her nutritional needs may increase as the progresses. I met with Ms. Robledo to talk about nutrition therapy for hyperemesis. Suggested that she think about what category of foods make her feel best, such as citrus foods, spicy, salty etc. as it is recommended for patients with hyperemesis to eat whatever they may want or think may settle well. Continue with regular diet and Ms. Robledo will call or nurse will call kitchen prn, not necessarily at meal times. Monitoring and Evaluation: 1. Please weigh Ms. Robledo daily as she adjusts to TPN. 2. Will monitor weight, PO intake, TPN requirements (macronutrients) 3. Will evaluate nutrition care plan ongoing and adjust as needed. Thank you for the consult.
[2018-06-27] MEDS: ACETAMINOPHEN 1,000 MG/100 ML BTL 400 MG IVPB ×2 (14:30→20:50)
[2018-06-27 14:38] LABS: Bacteria Few HPF (Negative); Crystals Negative HPF (Negative); Epithelial Cells Many HPF (Negative); Mucus Moderate (Negative); Other Cells Rare Transitional (Negative); RBC 0-2 (0-2)
[2018-06-27 14:39] LABS: C & S Indicated? No/Sq. Contamination; Casts Negative LPF (Negative)
[2018-06-27] MEDS: Normal Saline 50 ML (14:41)
[2018-06-28] MEDS: ACETAMINOPHEN 1,000 MG/100 ML BTL 400 MG IVPB ×3 (02:35→14:56)
[2018-06-28] MEDS: Normal Saline 500 ML 30 ML IV (08:18)
[2018-06-28] MEDS: Normal Saline Flush 10 ML SYR IVP ×3 (08:20→21:33)
[2018-06-28] MEDS: Hydrocortisone SOD SUC. 100 MG VIAL IVP ×2 (10:24→21:32)
[2018-06-28] MEDS: Metoclopramide 10 MG TAB PO ×3 (11:59→21:33)
[2018-06-28] MEDS: Lactated Ringers 1,000 ML 125 ML IV (12:50)
[2018-06-28] MEDS: Ondansetron O.D.T. 4 MG TABEF PO (16:26)
[2018-06-28] MEDS: MAGNESIUM SULFATE 1 GM/100 ML BAG IVPB (18:14)
[2018-06-28] MEDS: Sertraline 50 MG TAB PO (21:33)
[2018-06-29] MEDS: MAGNESIUM SULFATE 1 GM/100 ML BAG IVPB ×2 (01:46→10:56)
[2018-06-29] MEDS: ACETAMINOPHEN 1,000 MG/100 ML BTL 400 MG IVPB ×2 (02:08→07:50)
[2018-06-29] MEDS: Metoclopramide 10 MG TAB PO ×3 (07:29→16:33)
[2018-06-29] MEDS: Prochlorperazine 10 MG/2 ML VIAL IVP (08:23)
[2018-06-29] MEDS: Normal Saline Flush 10 ML SYR IVP ×2 (08:23→10:21)
[2018-06-29] MEDS: Hydrocortisone SOD SUC. 100 MG VIAL IVP (10:20)
--- NOTE | 2018-06-29 10:52 | W.PM.PROGNOT ---
Date of service: 06/29/18 Time of Service: 10:52 Assessment and Plan (1) Hyperemesis affecting , antepartum: Current visit: Yes Status: Acute (2) Status migrainosus without intractable migraine: Current visit: Yes Status: Acute Subjective Patient reports: still having pain and nausea Interval history since last seen: Pt's other notes are in [facility]. Since yesterday she has received IV Magnesium 1gm every 8 hrs along with discontinuing Phenergan and beginning Compazine IV. Tylenol has not improved H/A. Dr Dickson will examine pt today and offer her inj occipital nerve. Exam Const General: ill appearing Nutritional Appearance: thin Orientation: awake, oriented x3 and other (somnolent) Limitations: physical limitations (Headache precludes performing ADLs.) Resp Effort & Inspection: normal respiratory effort Cardio Palpation: normal PMI Rate: regular rate Psych Appearance: grossly normal Mental Status: mental status grossly normal Speech and Movement: speech and movement normal Mood: dysthymic mood Affect: sad Attitude: cooperative Thought Process: normal Thought Content: normal Insight: insight good Judgment: judgment good Objective Objective Clinical Data: Intake & Output 06/28/18 06/28/18 06/29/18 11:59 23:59 11:59 Intake Total 102.5 / 102.5 200 / 200 300 / 300 Balance 102.5 / 102.5 200 / 200 300 / 300 Weight 125 lb 0.034 oz Intake: IV 102.5 / 102.5 200 / 200 300 / 300 Laboratory Results WBC 6.76 k/cumm (4.4-10.8) 06/27/18 08:11 RBC 3.82 m/cumm (4.00-5.20) L 06/27/18 08:11 Hgb 11.6 g/dL (12.0-15.5) L 06/27/18 08:11 Hct 33.4 % (36.0-46.0) L 06/27/18 08:11 MCV 87.4 fL (80-95) 06/27/18 08:11 MCH 30.4 pg (27.0-33.0) 06/27/18 08:11 MCHC 34.7 g/dL (32.0-36.0) 06/27/18 08:11 RDW 13.4 % (11.7-14.6) 06/27/18 08:11 Plt Count 183 x1000/uL (130-400) 06/27/18 08:11 MPV 9.6 fL (8.0-11.0) 06/27/18 08:11 Immature Gran % 0.3 06/27/18 08:11 Neutrophils % 48.2 06/27/18 08:11 Lymphocytes % 41.9 06/27/18 08:11 Monocytes % 7.8 06/27/18 08:11 Eosinophils % 1.5 06/27/18 08:11 Basophils % 0.3 06/27/18 08:11 Absolute Neutrophils 3.26 k/cumm (1.2-6.7) 06/27/18 08:11 Absolute Lymphocytes 2.83 k/cumm (1.2-3.4) 06/27/18 08:11 Absolute Monocytes 0.53 k/cumm (0.11-0.7) 06/27/18 08:11 Absolute Eosinophils 0.10 k/cumm (0.0-0.7) 06/27/18 08:11 Absolute Basophils 0.02 k/cumm (0.0-0.2) 06/27/18 08:11 Sodium 138 mmol/L (136-145) 06/27/18 08:11 Potassium 3.3 mmol/L (3.5-5.1) L 06/27/18 08:11 Chloride 105 mmol/L (98-107) 06/27/18 08:11 Carbon Dioxide 25.1 mmol/L (21.0-32.0) 06/27/18 08:11 Anion Gap 7.9 mmol/L (3-11) 06/27/18 08:11 BUN 7 mg/dL (7-18) 06/27/18 08:11 Creatinine 0.54 mg/dL (0.55-1.02) L 06/27/18 08:11 Estimated GFR/1.73 m2 >= 60.00 (mL/min/1.73m2) 06/27/18 08:11 Glucose 81 mg/dL (70-100) 06/27/18 08:11 Calcium 8.2 mg/dL (8.5-10.1) L 06/27/18 08:11 Phosphorus 3.9 mg/dL (2.6-4.7) 06/27/18 08:11 Magnesium 1.7 mg/dL (1.8-2.4) L 06/27/18 08:11 Total Bilirubin 0.4 mg/dL (0.2-1.0) 06/27/18 08:11 AST 17 U/L (15-37) 06/27/18 08:11 ALT 19 U/L (12-78) 06/27/18 08:11 Alkaline Phosphatase 51 U/L (46-116) 06/27/18 08:11 Total Protein 6.5 g/dL (6.4-8.2) 06/27/18 08:11 Albumin 3.2 g/dL (3.4-5.0) L 06/27/18 08:11 Urine Color Yellow (Yellow) 06/27/18 13:00 Urine Clarity Clear 06/27/18 13:00 Urine pH 7.0 (5-8) 06/27/18 13:00 Ur Specific [place] 1.010 (1.005-1.025) 06/27/18 13:00 Urine Protein Negative mg/dL (Negative) 06/27/18 13:00 Urine Ketones Negative mg/dL (Negative) 06/27/18 13:00 Urine Blood Negative (Negative) 06/27/18 13:00 Urine Nitrite Negative (Negative) 06/27/18 13:00 Urine Bilirubin Negative (Negative) 06/27/18 13:00 Urine Urobilinogen 0.2 EU/dL (Up TO 0.2) 06/27/18 13:00 Ur Leukocyte Esterase Small (Negative) H 06/27/18 13:00 Urine RBC 0-2 (0-2) 06/27/18 13:00 Urine WBC 3-5 HPF (0-5) 06/27/18 13:00 Ur Epithelial Cells Many HPF (Negative) 06/27/18 13:00 Urine Crystals Negative HPF (Negative) 06/27/18 13:00 Urine Bacteria Few HPF (Negative) 06/27/18 13:00 Urine Casts Negative LPF (Negative) 06/27/18 13:00 Urine Mucus Moderate (Negative) 06/27/18 13:00 Urine Other Rare transitional (Negative) 06/27/18 13:00 Ur Culture Indicated? No/sq. contamination 06/27/18 13:00 Urine Glucose Negative mg/dL (Negative) 06/27/18 13:00
--- NOTE | 2018-06-29 10:53 | W.PM.HP.N ---
Date of service: 06/29/18 Time of Service: 10:53 History of Present Illness Chief Complaint: Documentation of current hosp course Narrative: Patient is a 33-year-old female with a estimated delivery of 12/28/2018 who is currently 18 weeks 0 days estimated gestational age who was admitted to the [facility] center 06/26/2018 with report of unremitting headache and continued hyperemesis. course [facility] Family History Paternal Grandfather Neoplasm Mother Neoplasm Father No problems noted. Sister No problems noted. Medical History Insomnia (Chronic) Anxiety (Chronic) Atopic dermatitis (Chronic) Mass of right breast (Resolved) Allergic rhinitis (Chronic) Gastric mass Social History Smoking/Tobacco Use Status: Never Surgical History Biopsy of breast (Resolved 12/22/16) Colposcopy Cervix With Loop Electrode Conization Foot Arthrodesis Knee Surgery Open Distal Gastrectomy and Billroth 1 (07/08/17) Meds Allergies Allergy/AdvReac Type Severity Reaction Status Date / Time hydrocodone AdvReac Unknown Vomiting Unverified 06/27/18 16:06 hydrocodone bitartrate AdvReac Unknown Vomiting Unverified 06/27/18 16:06 [From Vicodin] Results Labs : 06/27/18 08:11 06/27/18 08:11
--- NOTE | 2018-06-29 11:05 | HPE_ITS ---
Date of service: 06/29/18 Time of Service: 10:53 History of Present Illness Chief Complaint: Documentation of current hosp course Narrative: Patient is a 33-year-old female with a estimated delivery of who is currently 18 weeks 0 days estimated gestational age who was admitted to the [facility] center 06/26/2018 with report of unremitting headache and continued hyperemesis. course [facility] Family History Paternal Grandfather Neoplasm Mother Neoplasm Father No problems noted. Sister No problems noted. Medical History Insomnia (Chronic) Anxiety (Chronic) Atopic dermatitis (Chronic) Mass of right breast (Resolved) Allergic rhinitis (Chronic) Gastric mass Social History Smoking/Tobacco Use Status: Never Surgical History Biopsy of breast (Resolved 12/22/16) Colposcopy Cervix With Loop Electrode Conization Foot Arthrodesis Knee Surgery Open Distal Gastrectomy and Billroth 1 (07/08/17) Meds Allergies Allergy/AdvReac Type Severity Reaction Status Date / Time hydrocodone AdvReac Unknown Vomiting Unverified 06/27/18 16:06 hydrocodone bitartrate AdvReac Unknown Vomiting Unverified 06/27/18 16:06 [From Vicodin] Results Labs : 06/27/18 08:11 06/27/18 08:11
--- NOTE | 2018-06-29 11:07 | W.NEUROCONSU ---
Date of service: 06/29/18 Time of Service: 10:29 History of Present Illness Narrative: REASON FOR CONSULT: I was asked to see Ms. Robledo in neurological consultation by Dr. Nunez for headache. HPI: Ms. Robledo is a 33-year-old, left-handed woman with a past medical history of anxiety and insomnia as well as chronic abdominal pain, nausea, and vomiting. She is currently 13 weeks and for the last 2 weeks has been in and out of the hospital for management of hyperemesis gravidarum. On 07/03/2018, she first developed a headache. Her headache has since been constant. It is located in the periorbital and occipital head regions. It waxes and wanes in intensity but has not gone away. She recalls having one bad headache during her previous that lasted a day. Outside of , she has approximately 1 headache per month which is easily relieved by [id number] medications. She has been receiving IV fluids as well as Reglan and Zofran which seems to control her hyperemesis. She was given TPN at one point. As far as her headaches, she was given Fioricet initially with no significant benefit. She has had mild benefit with Tylenol. Fentanyl seem to be effective after 1 dose. She also received 1 dose of Compazine this morning and has found it especially helpful. Yesterday she was started on IV mag 1 g every 8 hours which has provided mild improvement. Further complicating her headaches, is her chronic insomnia which has worsened here in the hospital. At baseline she gets 4 hours of broken sleep per night. She has been getting hit or miss asleep while in the hospital. 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 She has no sick contacts at home. She has not had any fevers, chills, or night sweats. She denies any neck stiffness or other body aches. She has not had any tick bites or rashes. BP has been normal. No protein in her urine. Procedure: Bilateral Greater occipital nerve blocks Indication: Headache, occipital pain Consent: Indication, risks, benefits, and alternatives discussed with the patient, which included bleeding, infection, permanent numbness, and medication reaction. Consent form signed and placed in chart. Time out: A timeout was performed Location: The greater occipital nerve was located by first palpating the mastoid and midline occipital ridge. Next the nerve was palpated at 2/3 the distance toward the occipital ridge. It was coincident with maximal tenderness. Medication: 4cc of 2% Lidocaine Technique: The area was cleaned with alcohol swabs while using clean gloves. Using a 5 cc syringe with a 25 nelson, 4cc of the medication was injected in multiple tissue planes in the area around each greater occipital nerve. Prior to each injection the plunger was pulled to ensure the needle was not in a blood vessel. The patient tolerated the procedure well. Complications: none Blood loss: < 1cc Assessment and Plan (1) Status migrainosus without intractable migraine: Current visit: Yes Status: Acute Ms. Robledo is a 33-year-old, left-handed woman who is currently 13 weeks and admitted for dehydration in the setting of hyperemesis gravidarum now with status migrainosus. I suspect that her headaches are secondary to her underlying illness and dehydration. Her neurological exam was normal including endoscopy. I suspect that as her GI symptoms improve, her headaches will also improve. I performed an occipital nerve block with lidocaine today. This will hopefully provide some prophylactic coverage for her headaches. This can be repeated in 2 weeks. Otherwise, I recommend she continue magnesium 400 mg at bedtime for migraine prophylaxis. For rescue therapy, I recommend Tylenol 1000 mg every 8 hours as needed plus or minus Compazine 5-10 mg every 8 hours as needed (should not be given in conjunction with Reglan). ADRs were discussed. She should continue to stay well-hydrated to prevent worsening headaches. If these measures are not helpful, narcotic pain medications would be the next best options for rescue therapy. She should follow-up in the neurology clinic in 2 weeks, sooner if needed. Thank you for this consultation. DISCLAIMER: This note was created using [employer] voice recognition software. (2) Dehydration during : Current visit: Yes Status: Acute See above plan. Review of Systems Review of Systems All systems reviewed & are unremarkable except as noted in HPI and below Constitutional Reports anorexia, Denies chills, Reports fatigue, Denies fever(s), Reports malaise and Denies night sweats Eyes Patient Reports photophobia Gastrointestinal Reports abdominal pain, Reports nausea and Reports vomiting Endocrine Reports fatigue [facility] Family History Paternal Grandfather Neoplasm Mother Neoplasm Father No problems noted. Sister No problems noted. Medical History Insomnia (Chronic) Anxiety (Chronic) Atopic dermatitis (Chronic) Mass of right breast (Resolved) Allergic rhinitis (Chronic) Gastric mass Social History Smoking/Tobacco Use Status: Never Surgical History Biopsy of breast (Resolved 12/22/16) Colposcopy Cervix With Loop Electrode Conization Foot Arthrodesis Knee Surgery Open Distal Gastrectomy and Billroth 1 (07/08/17) Exam Narrative Exam Narrative: Physical Exam: Gen: Patient of apparent stated age, NAD Head and face: no facial or cranial abnormalities; mouth and tongue very dry Neck: Supple, no meningismus, no occipital tenderness CV: + S1, S2, RRR, no murmur Resp: CTA B/L Abd: soft, nontender, nondistended Ext: No edema. No clubbing or cyanosis. No bony deformity. Neuro Exam: Language: fluency, naming, repetition, and comprehension intact; Mental Status: AAOx3, current events intact, fund of knowledge intact; Speech: no dysarthria Cranial nerves: Funduscopy: disk margins clear bilaterally CN II: visual brothers intact CN III, IV, : extraocular movements intact, no nystagmus, pupils symmetric and reactive to light CN V: face sensation intact to LT and temp CN VII: no facial asymmetry noted CN VIII: hearing intact bilaterally CN IX, X: palate rises symmetrically CN XI: trapezius/SCM 5/5 bilaterally CN XII: protrudes tongue symmetrically Sensory: intact to LT, temp, vibration, and joint position in all extremities Motor: bulk and tone intact. Fine motor movements intact bilaterally. No pronator drift. Strength 5/5 throughout including the deltoids, biceps, triceps, wrist extensors, hip flexors, knee flexors, knee extensors, ankle flexors, and ankle extensors. Reflexes: 2+ at the biceps, triceps, brachioradialis, patella, and achilles tendons bilaterally; toes down going bilaterally; Coordination: FTN and HTS intact bilaterally Gait: deferred Results Labs : 06/27/18 08:11 06/27/18 08:11 Vital Signs 06/28/18 14:21
[2018-06-29] MEDS: Lidocaine 2% Pres-Free 5 ML VIAL 4 ML SC (11:18)
[2018-06-29] MEDS: Lactated Ringers 1,000 ML 125 ML IV (15:26)
[2018-06-29] MEDS: Prochlorperazine 10 MG TAB PO (16:33)
--- NOTE | 2018-07-01 13:07 | W.PM.DS.N ---
DS: Diagnosis Discharge Diagnosis (1) Status migrainosus without intractable migraine: Status: Acute (2) Dehydration during : Status: Acute Discharge Plan Disposition Patient Disposition: HOME Condition: Improving Discharge Details Reason For Visit: HYPEREMESIS Admit Date/Time: 06/27/18 08:31 Admit Provider: Artur Valente Attending Provider: Artur Valente Primary Care Provider: [facility] Hospital Course: Pt had been discharged to home from 06/25/18 after admission for hyperemesis. During her previous hospital stay she began to experience a frontal, occipital headache. During that previous hospitalization she had received a PICC line for IV fluids, TPN and Lipids. 24hrs after discharge she was once again evaluated on for hyperemesis and a worsening headache. She once again received TPN/Lipids and a IV antiemetics. Her headache persisted and appeared to make her nausea worse. The pain did not respond to IV Tylenol or change in her antiemetic regime. On Tue06/29/18 Dr. Dickson performed an occiptal nerve block with good results. Her headache subsided and her nausea was tolerable. She was able to take a small amount of pos. She was discharged to home with her PICC line, w/o IV fluids and with plans to f/u at [facility] on 07/03/[address] Dickson in 2w. Home Meds and New Rx's Prescriptions: Continue sertraline 50 MG tablet 50 mg PO DAILY Qty: 30 RF: 3 ranitidine HCl [Zantac] 150 mg tablet 150 mg PO DAILY Qty: 20 RF: 1 Metoclopramide Hcl [Metoclopramide Hcl] 5 mg PO QID PRN (Reason: nausea) Qty: 120 RF: 1 Discontinued PNV cmb#95-ferrous fumarate-FA [] 1 EACH tablet 1 ea PO RF: 0 metoclopramide HCl 5 mg tablet 5 mg PO QID Qty: 20 RF: 0 diphenhydramine-acetaminophen [Tylenol PM Extra Strength] 1 EACH tablet 1 ea PO HS PRN PRNRF: 0 yprjuqngum-yfnuprrkzuqeu-suyx 50-325-40 mg Tablet 1 tab PO Q4H PRN PRNQty: 20 RF: 1 promethazine 25 mg Tablet 6.25 mg PO Q4H PRN PRNQty: 60 RF: 1 No Action ondansetron 4 mg tablet,disintegrating 4 mg PO QID PRN (Reason: nausea and vomiting) Qty: 20 RF: 1 Discharge Instructions Additional Instructions: Call [facility] tomorrow. Make an appointment for f/u with Dr. Nunez or Dr. Nieves Discharge medications: Zantac daily. Compazine 10mg every 8hrs as needed for nausea. Over the counter Magnesium 400mg daily. Continue Reglan 10mg every 6hrs as needed for nausea You will begin Prednisone 5mg tablets in the following fashion: beginning tomorrow take 40mg just for tomorrow. Sat begin 20mg for 3 days followed by 10mg for 3 days then 5mg for 7 days. Activity:: Activity as Tolerated Equipment/Supplies:: No Equipment Needed Diet:: as tolerated Discharge Orders Discharge Orders: Discharge Order (Routine); Ordered 06/29/18 Ordered By: Maria Antonia Nieves Discharge Data Discharge Date/Time-TO BE ENTERED AT DEPARTURE: 06/29/18 18:15 DS: Summary Status at Discharge Functional status at discharge: independent ambulation Time Spent with Patient Less than 30 minutes Quality: AMI Clinical Trial Participant: No Contraindication for Aspirin: Treatment not indicated Exam Const General: cooperative Orientation: other (appears more comfortable pain has resolved) Eyes Pupils: PERRL Neck Neck: full ROM and supple GI Inspection: other (gravid NT abd + FHT 140's) Palpation: soft
--- NOTE | 2018-07-01 13:13 | DSE_ITS ---
DS: Diagnosis Discharge Diagnosis (1) Status migrainosus without intractable migraine: Status: Acute (2) Dehydration during : Status: Acute Discharge Plan Disposition Patient Disposition: HOME Condition: Improving Discharge Details Reason For Visit: HYPEREMESIS Admit Date/Time: 06/27/18 08:31 Admit Provider: Artur Valente Attending Provider: Artur Valente Primary Care Provider: [facility] Hospital Course: Pt had been discharged to home from 06/25/18 after admission for hyperemesis. During her previous hospital stay she began to experience a frontal, occipital headache. During that previous hospitalization she had received a PICC line for IV fluids, TPN and Lipids. 24hrs after discharge she was once again evaluated on for hyperemesis and a worsening headache. She once again received TPN/Lipids and a IV antiemetics. Her headache persisted and appeared to make her nausea worse. The pain did not respond to IV Tylenol or change in her antiemetic regime. On Tue06/29/18 Dr. Dickson performed an occiptal nerve block with good results. Her headache subsided and her nausea was tolerable. She was able to take a small amount of pos. She was discharged to home with her PICC line, w/o IV fluids and with plans to f/u at [facility] on 07/03/[address] Dickson in 2w. Home Meds and New Rx's Prescriptions: Continue sertraline 50 MG tablet 50 mg PO DAILY Qty: 30 RF: 3 ranitidine HCl [Zantac] 150 mg tablet 150 mg PO DAILY Qty: 20 RF: 1 Metoclopramide Hcl [Metoclopramide Hcl] 5 mg PO QID PRN (Reason: nausea) Qty: 120 RF: 1 Discontinued PNV cmb#95-ferrous fumarate-FA [] 1 EACH tablet 1 ea PO RF: 0 metoclopramide HCl 5 mg tablet 5 mg PO QID Qty: 20 RF: 0 diphenhydramine-acetaminophen [Tylenol PM Extra Strength] 1 EACH tablet 1 ea PO HS PRN PRNRF: 0 xrjvqaedji-uejlylmytiqsa-kovz 50-325-40 mg Tablet 1 tab PO Q4H PRN PRNQty: 20 RF: 1 promethazine 25 mg Tablet 6.25 mg PO Q4H PRN PRNQty: 60 RF: 1 No Action ondansetron 4 mg tablet,disintegrating 4 mg PO QID PRN (Reason: nausea and vomiting) Qty: 20 RF: 1 Discharge Instructions Additional Instructions: Call [facility] tomorrow. Make an appointment for f/u with Dr. Nunez or Dr. Nieves Discharge medications: Zantac daily. Compazine 10mg every 8hrs as needed for nausea. Over the counter Magnesium 400mg daily. Continue Reglan 10mg every 6hrs as needed for nausea You will begin Prednisone 5mg tablets in the following fashion: beginning tomorrow take 40mg just for tomorrow. Sat begin 20mg for 3 days followed by 10mg for 3 days then 5mg for 7 days. Activity:: Activity as Tolerated Equipment/Supplies:: No Equipment Needed Diet:: as tolerated Discharge Orders Discharge Orders: Discharge Order (Routine); Ordered 06/29/18 Ordered By: Maria Antonia Nieves Discharge Data Discharge Date/Time-TO BE ENTERED AT DEPARTURE: 06/29/18 18:15 DS: Summary Status at Discharge Functional status at discharge: independent ambulation Time Spent with Patient Less than 30 minutes Quality: AMI Clinical Trial Participant: No Contraindication for Aspirin: Treatment not indicated Exam Const General: cooperative Orientation: other (appears more comfortable pain has resolved) Eyes Pupils: PERRL Neck Neck: full ROM and supple GI Inspection: other (gravid NT abd + FHT 140's) Palpation: soft
--- NOTE | 2018-07-03 10:42 | W.PM.DS.N ---
DS: Diagnosis Discharge Diagnosis (1) Status migrainosus without intractable migraine: Status: Acute (2) Dehydration during : Status: Acute Discharge Plan Disposition Patient Disposition: HOME Condition: Improving Discharge Details Reason For Visit: HYPEREMESIS Admit Date/Time: 06/27/18 08:31 Admit Provider: Artur Valente Attending Provider: Artur Valente Primary Care Provider: [facility] Hospital Course: Pt had been discharged to home from 06/25/18 after admission for hyperemesis. During her previous hospital stay she began to experience a frontal, occipital headache. During that previous hospitalization she had received a PICC line for IV fluids, TPN and Lipids. 24hrs after discharge she was once again evaluated on for hyperemesis and a worsening headache. She once again received TPN/Lipids and a IV antiemetics. Her headache persisted and appeared to make her nausea worse. The pain did not respond to IV Tylenol or change in her antiemetic regime. On Tue06/29/18 Dr. Dickson performed an occiptal nerve block with good results. Her headache subsided and her nausea was tolerable. She was able to take a small amount of pos. She was discharged to home with her PICC line, w/o IV fluids and with plans to f/u at [facility] on 07/03/[address] Dickson in 2w. Home Meds and New Rx's Prescriptions: Continue sertraline 50 MG tablet 50 mg PO DAILY Qty: 30 RF: 3 ranitidine HCl [Zantac] 150 mg tablet 150 mg PO DAILY Qty: 20 RF: 1 Metoclopramide Hcl [Metoclopramide Hcl] 5 mg PO QID PRN (Reason: nausea) Qty: 120 RF: 1 Discontinued PNV cmb#95-ferrous fumarate-FA [] 1 EACH tablet 1 ea PO RF: 0 metoclopramide HCl 5 mg tablet 5 mg PO QID Qty: 20 RF: 0 diphenhydramine-acetaminophen [Tylenol PM Extra Strength] 1 EACH tablet 1 ea PO HS PRN PRNRF: 0 oaarvuqeni-gcgbsfaclkckx-hyax 50-325-40 mg Tablet 1 tab PO Q4H PRN PRNQty: 20 RF: 1 promethazine 25 mg Tablet 6.25 mg PO Q4H PRN PRNQty: 60 RF: 1 No Action ondansetron 4 mg tablet,disintegrating 4 mg PO QID PRN (Reason: nausea and vomiting) Qty: 20 RF: 1 Discharge Instructions Additional Instructions: Call [facility] tomorrow. Make an appointment for f/u with Dr. Nunez or Dr. Nieves Discharge medications: Zantac daily. Compazine 10mg every 8hrs as needed for nausea. Over the counter Magnesium 400mg daily. Continue Reglan 10mg every 6hrs as needed for nausea You will begin Prednisone 5mg tablets in the following fashion: beginning tomorrow take 40mg just for tomorrow. Sat begin 20mg for 3 days followed by 10mg for 3 days then 5mg for 7 days. Activity:: Activity as Tolerated Equipment/Supplies:: No Equipment Needed Diet:: as tolerated Discharge Orders Discharge Orders: Discharge Order (Routine); Ordered 06/29/18 Ordered By: Maria Antonia Nieves Discharge Data Discharge Date/Time-TO BE ENTERED AT DEPARTURE: 06/29/18 18:15 DS: Summary Quality: AMI Clinical Trial Participant: No Contraindication for Aspirin: Treatment not indicated Exam Const General: cooperative Other: appears tired Resp Effort & Inspection: normal respiratory effort Auscultation: clear to auscultation bilaterally GI Inspection: normal to inspection Neuro Sensory Exam: other (resolved migraine s/p lidocaine injection occipatally by neuro)
--- NOTE | 2018-07-03 10:46 | DSE_ITS ---
DS: Diagnosis Discharge Diagnosis (1) Status migrainosus without intractable migraine: Status: Acute (2) Dehydration during : Status: Acute Discharge Plan Disposition Patient Disposition: HOME Condition: Improving Discharge Details Reason For Visit: HYPEREMESIS Admit Date/Time: 06/27/18 08:31 Admit Provider: Artur Valente Attending Provider: Artur Valente Primary Care Provider: [facility] Hospital Course: Pt had been discharged to home from 06/25/18 after admission for hyperemesis. During her previous hospital stay she began to experience a frontal, occipital headache. During that previous hospitalization she had received a PICC line for IV fluids, TPN and Lipids. 24hrs after discharge she was once again evaluated on for hyperemesis and a worsening headache. She once again received TPN/Lipids and a IV antiemetics. Her headache persisted and appeared to make her nausea worse. The pain did not respond to IV Tylenol or change in her antiemetic regime. On Tue06/29/18 Dr. Dickson performed an occiptal nerve block with good results. Her headache subsided and her nausea was tolerable. She was able to take a small amount of pos. She was discharged to home with her PICC line, w/o IV fluids and with plans to f/u at [facility] on 07/03/[address] Dickson in 2w. Home Meds and New Rx's Prescriptions: Continue sertraline 50 MG tablet 50 mg PO DAILY Qty: 30 RF: 3 ranitidine HCl [Zantac] 150 mg tablet 150 mg PO DAILY Qty: 20 RF: 1 Metoclopramide Hcl [Metoclopramide Hcl] 5 mg PO QID PRN (Reason: nausea) Qty: 120 RF: 1 Discontinued PNV [id number] [] 1 EACH tablet 1 ea PO RF: 0 metoclopramide HCl 5 mg tablet 5 mg PO QID Qty: 20 RF: 0 diphenhydramine-acetaminophen [Tylenol PM Extra Strength] 1 EACH tablet 1 ea PO HS PRN PRNRF: 0 ocuomqzfdu-fqcsiknrpobeh-xfqh 50-325-40 mg Tablet 1 tab PO Q4H PRN PRNQty: 20 RF: 1 promethazine 25 mg Tablet 6.25 mg PO Q4H PRN PRNQty: 60 RF: 1 No Action ondansetron 4 mg tablet,disintegrating 4 mg PO QID PRN (Reason: nausea and vomiting) Qty: 20 RF: 1 Discharge Instructions Additional Instructions: Call [facility] tomorrow. Make an appointment for f/u with Dr. Nunez or Dr. Nieves Discharge medications: Zantac daily. Compazine 10mg every 8hrs as needed for nausea. Over the counter Magnesium 400mg daily. Continue Reglan 10mg every 6hrs as needed for nausea You will begin Prednisone 5mg tablets in the following fashion: beginning tomorrow take 40mg just for tomorrow. Sat begin 20mg for 3 days followed by 10mg for 3 days then 5mg for 7 days. Activity:: Activity as Tolerated Equipment/Supplies:: No Equipment Needed Diet:: as tolerated Discharge Orders Discharge Orders: Discharge Order (Routine); Ordered 06/29/18 Ordered By: Maria Antonia Nieves Discharge Data Discharge Date/Time-TO BE ENTERED AT DEPARTURE: 06/29/18 18:15 DS: Summary Quality: AMI Clinical Trial Participant: No Contraindication for Aspirin: Treatment not indicated Exam Const General: cooperative Other: appears tired Resp Effort & Inspection: normal respiratory effort Auscultation: clear to auscultation bilaterally GI Inspection: normal to inspection Neuro Sensory Exam: other (resolved migraine s/p lidocaine injection occipatally by neuro)
== END 2018-06-29 18:15 | disposition home or self-care (01) ==
PROVIDERS: Obstetrics & Gynecology; Admitting Provider Obstetrics & Gynecology Gynecology; PCP Nurse Practitioner Family; Visit Provider Obstetrics & Gynecology
DX: O99.351 Diseases of the nervous system complicating pregnancy, first trimester (principal); O21.0 Mild hyperemesis gravidarum; O26.891 Other specified pregnancy related conditions, first trimester; E86.0 Dehydration; G43.001 Migraine without aura, not intractable, with status migrainosus; Z3A.13 13 weeks gestation of pregnancy
CPT/HCPCS: 36569; 80053; 96360; 96361; 99219; 99224; 99238; 99239; 99255; 81003; 81015; 83735; 84100; 85025; G0378; J0131; J0780; J1720; J2405; J2765; J3475

== ENCOUNTER 2018-07-03 14:33 | Emergency (ER) | payer BC, SELFPAY ==
--- NOTE | 2018-07-03 15:10 | DI.MRI_ITS ---
SYMPTOM/DIAGNOSIS: BLURRED VISION, SLURRED SPEECH, HEADACHE BRAIN MRI: A noncontrast enhanced examination was performed according to the usual protocol. There is no evidence of restricted diffusion. No intracranial hemorrhage or bleed is identified. There is no evidence of a mass or mass effect. The ventricles are unremarkable. There is no apparent skull fracture. The sinuses are unremarkable. There is no mastoid effusion. The orbits are unremarkable. Normal flow is demonstrated in the internal carotid and basilar arteries. SUMMARY: No acute intracranial abnormality is identified. MRA BRAIN: The exam was performed according to the usual protocol. The superior sagittal sinus and straight sinus and transverse sinuses and sigmoid sinuses and internal jugular veins and internal cerebral and cortical veins are unremarkable. There is no evidence of a venous sinus abnormality.
--- NOTE | 2018-07-03 15:15 | W.ED.GENAD ---
Discharge Plan Discharge Details Primary Care Provider: Lucia Taylor ED Provider: Dinh Mcfadden Home Meds and New Rx's Prescriptions: No Action sertraline 50 MG tablet 50 mg PO DAILY Qty: 30 RF: 3 ranitidine HCl [Zantac] 150 mg tablet 150 mg PO DAILY Qty: 20 RF: 1 ondansetron 4 mg tablet,disintegrating 4 mg PO QID PRN (Reason: nausea and vomiting) Qty: 20 RF: 1 Metoclopramide Hcl [Metoclopramide Hcl] 5 mg PO QID PRN (Reason: nausea) Qty: 120 RF: 1 Medical Decision Making MDM Narrative Medical decision making narrative: 15:24 --33-year-old 001 at 12-14 weeks here with a week and a half of headache, more recently blurred vision and worsening slurred speech over the past couple days. No neck stiffness or fever. I think infectious etiology is unlikely. I am concerned about venous sinus thrombosis. I called and spoke with neurology about the patient who agreed with MRV/MRI of the brain. HPI - General Adult General Date/Time Provider Initiated Documentation: 07/03/18 15:06. Limitations to Documentation: no limitations. Information obtained by: patient and RN/MD (Dr. Sidhu). HPI Narrative: 33-year-old female at 12-14 weeks with chief complaint of slurred speech. Patient had slurred speech that has been present over the past 1.5 days. Patient notes that when symptoms started they were mild and have worsened. She has associated headache over the past 1.5 weeks. Patient also notes some mild bilateral blurred vision over the past week or so. Patient has had some vaginal bleeding recently that has improved, she is being followed by her talent analyst who has put her on bedrest. She spoke with her talent analyst today who advised to come to the emergency department after consulting with neurology for further assessment of her neurologic symptoms. Patient has been seen by neurology for her headache and has had occipital blocks performed. She has been taking Compazine, Reglan, prednisone, sertraline, and magnesium. Patient denies fever or neck stiffness or pain. Related Data Previous Rx's Medication Instructions Recorded sertraline 50 mg PO DAILY #30 tab-cap 05/25/18 ondansetron 4 mg disintegrating 4 mg PO QID PRN #20 tab 06/20/18 tablet ranitidine 150 mg tablet 150 mg PO DAILY #20 tab 06/20/18 metoclopramide HCl [metoclopramide 5 mg PO QID PRN #120 tab NS 06/25/18 HCl] Allergies Allergy/AdvReac Type Severity Reaction Status Date / Time hydrocodone AdvReac Unknown Vomiting Unverified 06/30/18 13:16 hydrocodone bitartrate AdvReac Unknown Vomiting Unverified 06/30/18 13:16 [From Vicodin] Review of Systems Review of Systems All systems reviewed & are unremarkable except as noted in HPI and below Constitutional Denies chills, Reports headache(s) and Reports malaise Eyes Patient Reports blurry vision ENT Denies vertigo, Reports headache(s) and Denies neck pain Cardiovascular Denies syncope Gastrointestinal Reports nausea and Reports vomiting Musculoskeletal Denies neck pain and Denies numbness Neurologic Reports abnormal speech, Denies confusion, Denies vertigo, Denies syncope, Reports headache(s), Denies focal weakness, Denies numbness and Denies paresthesias Psychiatric Denies confusion Exam Const General: cooperative and no acute distress Orientation: alert and awake [facility] Head: normocephalic and atraumatic Mouth: moist mucous membranes Eyes Conjunctivae: conjunctivae normal EOM: EOM intact bilaterally Neck Neck: normal visual inspection, trachea midline and No JVD Chest Chest: no tenderness Resp Effort & Inspection: normal respiratory effort Auscultation: clear to auscultation bilaterally, no rales, no rhonchi and no wheezes Cardio Rate: regular rate Rhythm: regular rhythm Heart Sounds: no gallops, no murmurs and no rubs GI Palpation: soft and nontender Auscultation: normal bowel sounds Skin General skin exam: dry skin Other: warm Neuro General: alert, awake, tone normal and moves all extremities Extrem General: no calf tenderness bilaterally and no pedal edema Psych Appearance: grossly normal Mental Status: mental status grossly normal Affect: normal affect
--- NOTE | 2018-07-03 15:27 | ED.GENADUL_ITS ---
Discharge Plan Discharge Details Primary Care Provider: Lucia Taylor ED Provider: Dinh Mcfadden Home Meds and New Rx's Prescriptions: No Action sertraline 50 MG tablet 50 mg PO DAILY Qty: 30 RF: 3 ranitidine HCl [Zantac] 150 mg tablet 150 mg PO DAILY Qty: 20 RF: 1 ondansetron 4 mg tablet,disintegrating 4 mg PO QID PRN (Reason: nausea and vomiting) Qty: 20 RF: 1 Metoclopramide Hcl [Metoclopramide Hcl] 5 mg PO QID PRN (Reason: nausea) Qty: 120 RF: 1 Medical Decision Making MDM Narrative Medical decision making narrative: 15:24 --33-year-old 001 at 12-14 weeks here with a week and a half of headache, more recently blurred vision and worsening slurred speech over the past couple days. No neck stiffness or fever. I think infectious etiology is unlikely. I am concerned about venous sinus thrombosis. I called and spoke with neurology about the patient who agreed with MRV/MRI of the brain. HPI - General Adult General Date/Time Provider Initiated Documentation: 07/03/18 15:06 . Limitations to Documentation: no limitations . Information obtained by: patient and RN/MD (Dr. Sidhu) . HPI Narrative: 33-year-old female at 12-14 weeks with chief complaint of slurred speech. Patient had slurred speech that has been present over the past 1.5 days. Patient notes that when symptoms started they were mild and have worsened. She has associated headache over the past 1.5 weeks. Patient also notes some mild bilateral blurred vision over the past week or so. Patient has had some vaginal bleeding recently that has improved, she is being followed by her pillowcase sewer who has put her on bedrest. She spoke with her pillowcase sewer today who advised to come to the emergency department after consulting with neurology for further assessment of her neurologic symptoms. Patient has been seen by neurology for her headache and has had occipital blocks performed. She has been taking Compazine, Reglan, prednisone, sertraline , and magnesium. Patient denies fever or neck stiffness or pain. Related Data Previous Rx's Medication Instructions Recorded sertraline 50 mg PO DAILY #30 tab-cap 05/25/18 ondansetron 4 mg disintegrating 4 mg PO QID PRN #20 tab 06/20/18 tablet ranitidine 150 mg tablet 150 mg PO DAILY #20 tab 06/20/18 metoclopramide HCl [metoclopramide 5 mg PO QID PRN #120 tab NS 06/25/18 HCl] Allergies Allergy/AdvReac Type Severity Reaction Status Date / Time hydrocodone AdvReac Unknown Vomiting Unverified 06/30/18 13:16 hydrocodone bitartrate AdvReac Unknown Vomiting Unverified 06/30/18 13:16 [From Vicodin] Review of Systems Review of Systems All systems reviewed & are unremarkable except as noted in HPI and below Constitutional Denies chills, Reports headache(s) and Reports malaise Eyes Patient Reports blurry vision ENT Denies vertigo, Reports headache(s) and Denies neck pain Cardiovascular Denies syncope Gastrointestinal Reports nausea and Reports vomiting Musculoskeletal Denies neck pain and Denies numbness Neurologic Reports abnormal speech, Denies confusion, Denies vertigo, Denies syncope, Reports headache(s), Denies focal weakness, Denies numbness and Denies paresthesias Psychiatric Denies confusion Exam Const General: cooperative and no acute distress Orientation: alert and awake [facility] Head: normocephalic and atraumatic Mouth: moist mucous membranes Eyes Conjunctivae: conjunctivae normal EOM: EOM intact bilaterally Neck Neck: normal visual inspection, trachea midline and No JVD Chest Chest: no tenderness Resp Effort & Inspection: normal respiratory effort Auscultation: clear to auscultation bilaterally, no rales, no rhonchi and no wheezes Cardio Rate: regular rate Rhythm: regular rhythm Heart Sounds: no gallops, no murmurs and no rubs GI Palpation: soft and nontender Auscultation: normal bowel sounds Skin General skin exam: dry skin Other: warm Neuro General: alert, awake, tone normal and moves all extremities Extrem General: no calf tenderness bilaterally and no pedal edema Psych Appearance: grossly normal Mental Status: mental status grossly normal Affect: normal affect
--- NOTE | 2018-07-03 16:09 | W.ED.GENAD ---
Discharge Plan Disposition Patient Disposition: HOME Condition: Improving Discharge Details Chief Complaint: AMS/LOC Clinical Impression: Blurred vision, Slurred speech, First trimester , History of migraine Primary Care Provider: Lucia Taylor ED Provider: Anne Still Home Meds and New Rx's Prescriptions: Continue sertraline 50 MG tablet 50 mg PO DAILY Qty: 30 RF: 3 Metoclopramide Hcl [Metoclopramide Hcl] 5 mg PO QID PRN (Reason: nausea) Qty: 120 RF: 1 Discharge Instructions Instructions: Migraine Headache (ED), Blurred Vision (ED) Additional Instructions: Drink plenty of fluids and get plenty of rest. Attempt to decrease some of her medications to see if they improve your symptoms. Follow-up with your scheduled appointment with OB tomorrow. You should receive a call from neurology regarding a follow-up appointment within the next 1-2 weeks. Return immediately to the emergency department for any worsening or new concerning symptoms. Discharge Data Discharge Date/Time-TO BE ENTERED AT DEPARTURE: 07/03/18 18:41 Discharge Physician: Anne Still Medical Decision Making MDM Narrative Medical decision making narrative: 1545 -- Please see Dr. Dinh Mcfadden's note for initial presentation, exam and plan. Patient is a 33-year-old female at who is currently 13 weeks who presents with headache for 10 days and slurred speech and blurred vision since yesterday. Per Dr. Mcfadden, patient is noted to have slurred speech. Patient has been followed by neurology Dr. Reis for her history of chronic migraines which have recently been thought to be due to her hyperemesis gravidarum. She most recently on 06/29/18 had an occipital block by Dr. Reis and was told to continue Compazine, Benadryl, Reglan and magnesium for her migraines. Patient has also had vaginal bleeding for which her DRUG SAFETY PHYSICIAN Dr. Nieves has been following. Plan upon my endorsement was to follow-up on MRI/MRV brain to rule out venous sinus thrombosis. Dr. Mcfadden had discussed with Dr. Reis and she had recommended this. Patient has not had a fever and denies neck pain, making meningitis less likely, however per Dr. Mcfadden's conversation with Dr. Reis, if MRI/MRV negative, there may be consideration for LP for the possibility of pseudotumor cerebri. Patient currently at radiology so I will assess when she returns. 1700 --patient states she has had blurry vision for 4 days and slurred speech for 2 days. She saw her OB for her vaginal bleeding which started 4 days ago and has stopped today. She was told by Dr. Sidhu that this was likely due to the placenta and she was advised to be on bedrest which she has been. No focal deficits on my exam. She denies chest pain, shortness of breath, abdominal pain. Her last episode of vomiting was 1 week ago. She states since then she has been eating and drinking well. She denies fever or neck pain. She states her headache is much improved to what it has been and is currently dull and 2/10. She has no meningeal signs. Patient had a PICC line placed for her hyperemesis per OB. Her MRI/MRV brain is negative. I discussed the possibility of a lumbar puncture and she would rather wait to discuss this with her . Will call Dr. Reis to discuss further. Will follow up on lab results. Labs reviewed and essentially unremarkable. White blood cell count 9.4. Hemoglobin 11. Albumin 3. Magnesium 1.8. 1750 --discussed with Dr. Reis - She states her recommendation for LP was based mainly on ruling out the possibility of viral meningitis versus encephalitis. Patient has a normal white blood cell count. She states that if patient's headache has been improving, she likely does not need a lumbar puncture. I discussed with patient and in room and patient would rather not have a lumbar puncture at this time. The risks of and disability due to serious pathology were explained and patient fully understands and demonstrates capacity to make decisions. It was again discussed that she has a normal white blood cell count, no fever, neck pain no meningeal signs and her headache is improving, making meningitis less likely and patient is agreeable. 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 Her visual acuity is 20/25. She discussed the consideration on cutting down on some of her medications to see if they are contributing to her symptoms. She will have neurology office call patient for a follow-up appointment within the next 1-2 weeks. Patient is requesting to go home. Patient states she feels better. She was instructed on increasing her fluids, and rest per OB, and on decreasing some of her medications such as Compazine, Reglan, Benadryl, prednisone, magnesium which may be contributing to her symptoms. She has a follow-up appointment with OB tomorrow. She was instructed to return here immediately with any concerns. HPI - General Adult General Date/Time Provider Initiated Documentation: 07/03/18 15:06. Limitations to Documentation: no limitations. Information obtained by: patient and RN/MD (Dr. Sidhu). Related Data Previous Rx's Medication Instructions Recorded sertraline 50 mg PO DAILY #30 tab-cap 05/25/18 metoclopramide HCl [metoclopramide 5 mg PO QID PRN #120 tab NS 06/25/18 HCl] Allergies Allergy/AdvReac Type Severity Reaction Status Date / Time hydrocodone AdvReac Unknown Vomiting Unverified 07/04/18 15:29 hydrocodone bitartrate AdvReac Unknown Vomiting Unverified 07/04/18 15:29 [From Vicodin]
[2018-07-03 16:20] VITALS: BP 100/38; PULSE 53; RESP 18; TEMP 37; O2SAT 97
--- NOTE | 2018-07-03 16:21 | ED.GENADUL_ITS ---
Discharge Plan Disposition Patient Disposition: HOME Condition: Improving Discharge Details Chief Complaint: AMS/LOC Clinical Impression: Blurred vision, Slurred speech, First trimester , History of migraine Primary Care Provider: Lucia Taylor ED Provider: Anne Still Home Meds and New Rx's Prescriptions: Continue sertraline 50 MG tablet 50 mg PO DAILY Qty: 30 RF: 3 Metoclopramide Hcl [Metoclopramide Hcl] 5 mg PO QID PRN (Reason: nausea) Qty: 120 RF: 1 Discharge Instructions Instructions: Migraine Headache (ED), Blurred Vision (ED) Additional Instructions: Drink plenty of fluids and get plenty of rest. Attempt to decrease some of her medications to see if they improve your symptoms. Follow-up with your scheduled appointment with OB tomorrow. You should receive a call from neurology regarding a follow-up appointment within the next 1-2 weeks. Return immediately to the emergency department for any worsening or new concerning symptoms. Discharge Data Discharge Date/Time-TO BE ENTERED AT DEPARTURE: 07/03/18 18:41 Discharge Physician: Anne Still Medical Decision Making MDM Narrative Medical decision making narrative: 1545 -- Please see Dr. Dinh Mcfadden's note for initial presentation, exam and plan. Patient is a 33-year-old female at who is currently 13 weeks who presents with headache for 10 days and slurred speech and blurred vision since yesterday. Per Dr. Mcfadden, patient is noted to have slurred speech. Patient has been followed by neurology Dr. Reis for her history of chronic migraines which have recently been thought to be due to her hyperemesis gravidarum. She most recently on 06/29/18 had an occipital block by Dr. Reis and was told to continue Compazine, Benadryl, Reglan and magnesium for her migraines. Patient has also had vaginal bleeding for which her DIRECTOR REGULATORY AGENCY Dr. Nieves has been following. Plan upon my endorsement was to follow-up on MRI/MRV brain to rule out venous sinus thrombosis. Dr. Mcfadden had discussed with Dr. Reis and she had recommended this. Patient has not had a fever and denies neck pain, making meningitis less likely, however per Dr. Mcfadden's conversation with Dr. Reis, if MRI/MRV negative, there may be consideration for LP for the possibility of pseudotumor cerebri. Patient currently at radiology so I will assess when she returns. 1700 --patient states she has had blurry vision for 4 days and slurred speech for 2 days. She saw her OB for her vaginal bleeding which started 4 days ago and has stopped today. She was told by Dr. Sidhu that this was likely due to the placenta and she was advised to be on bedrest which she has been. No focal deficits on my exam. She denies chest pain, shortness of breath, abdominal pain. Her last episode of vomiting was 1 week ago. She states since then she has been eating and drinking well. She denies fever or neck pain. She states her headache is much improved to what it has been and is currently dull and 2/10. She has no meningeal signs. Patient had a PICC line placed for her hyperemesis per OB. Her MRI/MRV brain is negative. I discussed the possibility of a lumbar puncture and she would rather wait to discuss this with her . Will call Dr. Reis to discuss further. Will follow up on lab results. Labs reviewed and essentially unremarkable. White blood cell count 9.4. Hemoglobin 11. Albumin 3. Magnesium 1.8. 1750 --discussed with Dr. Reis - She states her recommendation for LP was based mainly on ruling out the possibility of viral meningitis versus encephalitis. Patient has a normal white blood cell count. She states that if patient's headache has been improving, she likely does not need a lumbar puncture. I discussed with patient and in room and patient would rather not have a lumbar puncture at this time. The risks of and disability due to serious pathology were explained and patient fully understands and demonstrates capacity to make decisions. It was again discussed that she has a normal white blood cell count, no fever, neck pain no meningeal signs and her headache is improving, making meningitis less likely and patient is agreeable. 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 Her visual acuity is 20/25. She discussed the consideration on cutting down on some of her medications to see if they are contributing to her symptoms. She will have neurology office call patient for a follow-up appointment within the next 1-2 weeks. Patient is requesting to go home. Patient states she feels better. She was instructed on increasing her fluids, and rest per OB, and on decreasing some of her medications such as Compazine, Reglan, Benadryl, prednisone, magnesium which may be contributing to her symptoms. She has a follow-up appointment with OB tomorrow. She was instructed to return here immediately with any concerns. HPI - General Adult General Date/Time Provider Initiated Documentation: 07/03/18 15:06 . Limitations to Documentation: no limitations . Information obtained by: patient and RN/MD (Dr. Sidhu) . Related Data Previous Rx's Medication Instructions Recorded sertraline 50 mg PO DAILY #30 tab-cap 05/25/18 metoclopramide HCl [metoclopramide 5 mg PO QID PRN #120 tab NS 06/25/18 HCl] Allergies Allergy/AdvReac Type Severity Reaction Status Date / Time hydrocodone AdvReac Unknown Vomiting Unverified 07/04/18 15:29 hydrocodone bitartrate AdvReac Unknown Vomiting Unverified 07/04/18 15:29 [From Vicodin]
--- NOTE | 2018-07-03 16:29 | DI.VRAD_ITS ---
EXAM: MR Head Without Intravenous Contrast CLINICAL HISTORY: 33 years old, female; Signs and symptoms; Speech disturbance; Slurred speech; Patient HX: Blurred vision, slurred speech. Patient is . TECHNIQUE: Magnetic resonance images of the head/brain without intravenous contrast in multiple planes. COMPARISON: No relevant prior studies available. FINDINGS: Brain: No restricted diffusion present to indicate acute cerebrovascular accident. No intracranial bleed. No intracranial mass or mass effect. Ventricles: Unremarkable. No ventriculomegaly. Bones/joints: Unremarkable. Sinuses: Unremarkable as visualized. No acute sinusitis. Mastoid air cells: Unremarkable as visualized. No mastoid effusion. Orbits: Unremarkable as visualized. Internal carotid arteries: Normal signal flow void within the internal carotid and basilar arteries. IMPRESSION: No intracranial abnormality. Dictated and Authenticated by: Duglas Werner MD. Ordering:ANJUM RASMUSSEN MD
--- NOTE | 2018-07-03 16:35 | DI.VRAD_ITS ---
EXAM: MR Venography Head Without Intravenous Contrast CLINICAL HISTORY: 33 years old, female; Signs and symptoms; Speech disturbance and visual disturbance and other: Slurred speech; Type not specified; Patient HX: Patient is . TECHNIQUE: Magnetic resonance venography images of the head without intravenous contrast. MIP reconstructed images were created and reviewed. COMPARISON: MR - HEAD^ROUTINE WO 07/03/2018 3:55 PM FINDINGS: Superior sagittal sinus: Unremarkable. Patent. Straight sinus: Unremarkable. Patent. Transverse sinuses: Unremarkable. Patent. Sigmoid sinuses: Unremarkable. Patent. Internal jugular veins: Unremarkable as visualized. These are not well seen below the skull base. Internal cerebral and cortical veins: Unremarkable as visualized. IMPRESSION: No venous sinus thrombosis identified. Dictated and Authenticated by: Duglas Werner MD. Ordering:ANJUM RASMUSSEN MD
[2018-07-03] MEDS: Normal Saline 1,000 ML 1000 ML IV (16:42)
[2018-07-03 16:46] LABS: Abs Immature Grans 0.07 k/cumm (0.0-0.09); Absolute Basophil Count 0.02 k/cumm (0.0-0.2); Absolute Eosinophil Count 0.05 k/cumm (0.0-0.7); Absolute Monocyte Count 0.76 k/cumm (0.11-0.7); Absolute Neutrophil Count 6.11 k/cumm (1.2-6.7); Basophils % 0.2; Eosinophils % 0.5; HCT 31.4 % (36.0-46.0); Immature Grans % 0.7; Lymphocytes % 25.5; Mean Corpuscular Hemoglobin 31.2 pg (27.0-33.0); Monocytes % 8.1; Platelet Count 187 x1000/uL (130-400); RBC 3.53 m/cumm (4.00-5.20); RBC Distribution Width 13.5 % (11.7-14.6); White Blood Cell Count 9.41 k/cumm (4.4-10.8)
[2018-07-03 17:02] LABS: ALT 31 U/L (12-78); AST 14 U/L (15-37); Alkaline Phosphatase 53 U/L (46-116); Anion Gap 8.7 mmol/L (3-11); BUN 7 mg/dL (7-18); Bilirubin, Total 0.2 mg/dL (0.2-1.0); CO2 25.3 mmol/L (21.0-32.0); CREATININE 0.58 mg/dL (0.55-1.02); Calcium 8.2 mg/dL (8.5-10.1); Chloride 105 mmol/L (98-107); Glucose 102 mg/dL (70-100); Magnesium 1.8 mg/dL (1.8-2.4); Potassium 3.6 mmol/L (3.5-5.1); Sodium 139 mmol/L (136-145); Total Protein 6.1 g/dL (6.4-8.2)
[2018-07-03 18:44] VITALS: BP 100/38; PULSE 53; RESP 18; TEMP 37; O2SAT 97
[2018-07-03] MEDS: Heparin 500 UNITS/5 ML SYRINGE (19:43)
== END 2018-07-03 18:41 | disposition home or self-care (01) ==
PROVIDERS: Student in an Organized Health Care Education/Training Program; Emergency Provider Physician Assistant; PCP Nurse Practitioner Family
DX: H53.8 Other visual disturbances (principal); R47.81 Slurred speech; Z33.1 Pregnant state, incidental; Z3A.13 13 weeks gestation of pregnancy; G43.909 Migraine, unspecified, not intractable, without status migrainosus
CPT/HCPCS: 36592; 70544; 80053; 96360; 96361; 99285; 70551; 83735; 85025; 99284

== ENCOUNTER 2018-07-04 01:30 | Outpatient (RCR) | payer BC, SELFPAY ==
[2018-06-26] MEDS: Normal Saline Flush 10 ML SYR IVP (12:35)
[2018-06-30] MEDS: Normal Saline Flush 10 ML SYR IVP (12:10)
[2018-07-01] MEDS: Normal Saline Flush 10 ML SYR IVP (10:30)
[2018-07-02] MEDS: Normal Saline Flush 10 ML SYR IVP (10:33)
[2018-07-03] MEDS: Normal Saline Flush 10 ML SYR IVP (10:50)
[2018-07-04] MEDS: Normal Saline Flush 10 ML SYR IVP (14:45)
== END 2018-07-16 23:59 | disposition home or self-care (01) ==
LOC: INF 01:30
PROVIDERS: PCP Nurse Practitioner Family; Visit Provider Obstetrics & Gynecology
DX: Z45.2 Encounter for adjustment and management of vascular access device (principal); O21.1 Hyperemesis gravidarum with metabolic disturbance; O25.11 Malnutrition in pregnancy, first trimester; E83.42 Hypomagnesemia; E87.6 Hypokalemia; Z3A.13 13 weeks gestation of pregnancy
CPT/HCPCS: 96523; J3490

== ENCOUNTER 2018-07-10 00:16 | Outpatient (CLI) | payer BC, SELFPAY ==
--- NOTE | 2018-07-10 10:30 | DI.US_ITS ---
SYMPTOMS/DIAGNOSIS: VAGINAL BLEEDING, ? PREVIA OBSTETRICAL ULTRASOUND: Many abnormalities cannot be diagnosed. A normal exam does not exclude a congenital anomaly. Radiology No. [id number] LMP: Exam Date: 07/10/18 [facility] [place] wks days on EDC ([facility] [place]) NO PRIOR ON PACS Confirmed: HISTORY: ---- PREDICTED GESTATIONAL AGE NUMBER 16+4 weeks with a range of 15+4 weeks to 17+4 weeks. 1 Determined by___1STUS___LMP___HISTORY__X___WEIGHTED AVERAGE PLACENTA PRESENTATION Grade 0-I Cephalic___ Anterior_X__Posterior_X__ Breech____ Right__X___ Left Transverse(head right___ Fundal___Low-lying___Previa___ Transverse(head left___ Varying___X___ BIOMETRY AMNIOTIC FLUID BPD: 35 mm 16+5 weeks Normal HC: 127 mm 16+3 weeks AC: 109 mm 16+6 weeks FL: 21 mm 16+1 weeks AMNIOTIC FLUID INDEX >26 WK CRL: mm weeks Cisterna Magna: 4 mm CI: 0.82 RUQ: LUQ Cerebellum: 1.6 cm EFW: 158 grams Percentile: 93rd RLQ: LLQ Total: cms Composite AGE= 16+4 wks EDC by US: 12/21/2018 BIOPHYSICAL PROFILE ANATOMY IDENTIFIED SCORE 0/2 Heart: 4-Chamber__X_Rate:BPM 158 LVOT: X RVOT:___X Amniotic Fluid(>2cms)____ Stomach:___X____ Kidneys:__X Respirations (>30 secs) Bladder:___X Post. Fossa:__X Body Flex/Extension 3-vessel cord:__X Ventricles:___X Cord insertion:_X____ Lips:__X__ Extremity Flex/Extension Spinal morphology:___X Nose:__X___ Total Score= Palate:___X____ NS=not seen COMMENTS: There is a single living intrauterine gestation. Estimated sonographic age is 16 weeks 4 days. No or placental abnormalities are identified. Amniotic fluid is within normal limits. heart rate is 158 beats per minute. IMPRESSION: Single living intrauterine gestation. Estimated sonographic age is 16 weeks 4 days.
== END 2018-07-10 00:36 ==
PROVIDERS: PCP Nurse Practitioner Family; Visit Provider Obstetrics & Gynecology
DX: O20.9 Hemorrhage in early pregnancy, unspecified (principal); Z3A.16 16 weeks gestation of pregnancy
CPT/HCPCS: 76805

== ENCOUNTER 2018-07-11 09:11 | Emergency (ER) | payer BC, SELFPAY ==
[2018-07-11 09:17] VITALS: BP 89/36; PULSE 57; RESP 17; TEMP 36.5; O2SAT 99
[2018-07-11] MEDS: Lactated Ringers 1,000 ML 1000 ML IV (09:52)
[2018-07-11 09:58] LABS: Abs Immature Grans 0.06 k/cumm (0.0-0.09); Absolute Basophil Count 0.02 k/cumm (0.0-0.2); Absolute Eosinophil Count 0.08 k/cumm (0.0-0.7); Absolute Lymphocyte Count 3.05 k/cumm (1.2-3.4); Absolute Monocyte Count 0.75 k/cumm (0.11-0.7); Absolute Neutrophil Count 6.25 k/cumm (1.2-6.7); Basophils % 0.2; Eosinophils % 0.8; HCT 33.4 % (36.0-46.0); HGB 11.4 g/dL (12.0-15.5); Immature Grans % 0.6; Lymphocytes % 29.9; Mean Corp. HGB Concentration 34.1 g/dL (32.0-36.0); Mean Corpuscular Hemoglobin 30.8 pg (27.0-33.0); Mean Corpuscular Volume 90.3 fL (80-95); Mean Platelet Volume 8.9 fL (8.0-11.0); Monocytes % 7.3; Neutrophils % 61.2; Platelet Count 227 x1000/uL (130-400); RBC Distribution Width 14.2 % (11.7-14.6); White Blood Cell Count 10.21 k/cumm (4.4-10.8)
--- NOTE | 2018-07-11 09:59 | W.ED.GENAD ---
Discharge Plan Disposition Patient Disposition: HOME Discharge Details Chief Complaint: Dizzy/Sync Clinical Impression: Lightheadedness, Syncope Primary Care Provider: Rebekah Greco ED Provider: Dinh Mcfadden Home Meds and New Rx's Prescriptions: Continue prenat.vits,sabrina,gxe-gkqj-xpooa tablet 1 tab PO DAILY RF: 0 gzhtkynlzr-bhkgrxacfokvk-ujkp [Fioricet] 50-300-40 mg capsule 1 cap PO PRN PRNRF: 0 acetaminophen [Tylenol] 325 mg capsule 325 mg PO PRN PRNRF: 0 sertraline 50 mg tablet 100 mg PO DAILY RF: 0 Metoclopramide Hcl [Metoclopramide Hcl] 5 mg PO QID PRN (Reason: nausea) Qty: 120 RF: 1 Discharge Instructions Instructions: Syncope (ED) Additional Instructions: Please follow-up with your primary care physician and cup trimming 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 Call today to arrange follow-up. Return to the ER should you have any worsening or new concerning symptoms. Referrals: Franchesca Nunez MD [[facility] STAFF PHYSICIAN] - Rebekah Greco NP [Primary Care Provider] - Medical Decision Making 10:00 --33-year-old 001 at 13-14 weeks, complicated by hyperemesis, headaches, and intermittent dizziness, here after dizzy spell with brief syncope after standing. Patient is hypotensive. No tachycardia. No hypoxia or shortness of breath. Patient notes that she typically has low normal blood pressure 90/50. Will give IVF bolus. Will check screening labs to assess for electrolyte abnormalities. ECG to assess for arrhythmia reviewed and interpreted by me: Sinus bradycardia 59 bpm, normal axis, nondiagnostic. 11:30 -- Labs reviewed and nondiagnostic. Patient received IV fluid bolus. Patient reassessed and feels better. Ambulate without dysfunction. Patient requesting discharge. Patient was advised to maintain adequate oral hydration. 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 I encouraged her to return should she have any worsening or new concerning symptoms. HPI General Mode of arrival: ambulatory. Date/Time Provider Initiated Documentation: 07/11/18 09:36. Limitations to Documentation: no limitations. Information obtained by: patient. HPI Narrative: 33-year-old at 13-14 weeks, complicated by hyperemesis as well as migraine headaches, here with complaint of dizziness. Patient was recently seen here on 07/03/2018 for headache and slurred speech and had a comprehensive neurologic workup that included MRI/MRV of the brain that was negative. Patient was following up today at the neurology office and when standing to leave the office she experienced dizziness and a brief syncopal episode. She did not fall. She was helped to the ground and then had immediate return of consciousness. Symptoms were severe. She still has some dizziness at this time. No recent vomiting. Patient does note continued mild headache. No fever. No neck stiffness. No chest pain or shortness of breath. Related Data Home Medications Medication Instructions Recorded Confirmed metoclopramide HCl [metoclopramide 5 mg PO QID PRN #120 tab NS 06/25/18 07/11/18 HCl] acetaminophen 325 mg capsule 325 mg PO PRN PRN cap 07/11/18 07/11/18 tputaijqox-qhocqpbmisjiu-mpjepwwh 1 cap PO PRN PRN cap 07/11/18 07/11/18 50 mg-300 mg-40 mg capsule 1 tab PO DAILY 07/11/18 07/11/18 vitamin,calcium,zjwiotdk-jvix-feyen acid tablet sertraline 50 mg tablet 100 mg PO DAILY tab-cap 07/11/18 07/11/18 Previous Rx's Medication Instructions Recorded metoclopramide HCl [metoclopramide 5 mg PO QID PRN #120 tab NS 06/25/18 HCl] Allergies Allergy/AdvReac Type Severity Reaction Status Date / Time hydrocodone AdvReac Unknown Vomiting Unverified 07/04/18 15:29 hydrocodone bitartrate AdvReac Unknown Vomiting Unverified 07/04/18 15:29 [From Vicodin] General Stated Complaint: Dizzy/Sync STANAM: 3 Review of Systems Review of Systems All systems reviewed & are unremarkable except as noted in HPI and below Constitutional Reports headache(s) ENT Reports headache(s) Cardiovascular Denies chest pain, Reports syncope, Denies edema, Denies irregular heart rhythm, Reports lightheadedness, Denies palpitations and Denies dyspnea Respiratory Denies dyspnea Neurologic Reports syncope and Reports headache(s) Endocrine Denies palpitations PFSH Family History Paternal Grandfather Neoplasm Mother Neoplasm Father No problems noted. Sister No problems noted. Medical History Chronic daily headache (Acute) Placenta previa antepartum (Acute) Insomnia (Chronic) Anxiety (Chronic) Atopic dermatitis (Chronic) Mass of right breast (Resolved) Allergic rhinitis (Chronic) Gastric mass Hyperemesis affecting , antepartum (Acute) Social History household members: family Smoking/Tobacco Use Status: Never additional social history: She is . She has a 3yo daughter Vane. 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 No smoking, eTOH, or illicit drug use. Surgical History Biopsy of breast (Resolved 12/22/16) Colposcopy Cervix With Loop Electrode Conization Foot Arthrodesis Knee Surgery Open Distal Gastrectomy and Billroth 1 (07/08/17) Exam Const General: cooperative and no acute distress HENMT Head: normocephalic and atraumatic Mouth: moist mucous membranes Eyes Conjunctivae: normal conjunctivae Sclera: normal sclerae EOM: EOM intact bilaterally Neck Neck: trachea midline and supple Resp Auscultation: clear to auscultation bilaterally, no rales, no rhonchi and no wheezes Cardio Jugular venous pressure: no JVD Rate: regular rate and not tachycardic Rhythm: regular rhythm GI Palpation: soft, not firm, no guarding, no masses, not rigid and nontender Skin General skin exam: no rashes or lesions noted Neuro General: alert, awake, oriented x3, tone normal, moves all extremities and meningeal signs present Cognition: normal cognition Extrem General: no edema Psych Appearance: grossly normal Mental Status: mental status grossly normal Speech and Movement: speech and movement normal Course Vital Signs Temperature 36.5 C 07/11/18 09:17 Pulse 57 L 07/11/18 09:17 Respiratory Rate 17 07/11/18 09:17 Blood Pressure 89/36 L 07/11/18 09:17 Pulse Oximetry 99 07/11/18 09:17 Temperature 36.5 C 07/11/18 09:17 Temperature Source Temporal Artery Scan 07/11/18 09:17 Pulse 57 L 07/11/18 09:17 Respiratory Rate 17 07/11/18 09:17 Respiratory Effort 07/11/18 09:22 Respiratory Depth Normal 07/11/18 09:22 Respiratory Pattern Normal 07/11/18 09:22 Blood Pressure 89/36 L 07/11/18 09:17 Blood Pressure Position Supine 07/11/18 09:17 Pulse Oximetry 99 07/11/18 09:17 Oxygen Delivery Method Room Air 07/11/18 09:17 Oxygen Flow Rate 0 07/11/18 09:17 Pain Level 2 07/11/18 09:17 Lab/Test Results Lab/Test Results: Laboratory Tests Range/Units 07/11/18 09:40 WBC (4.4-10.8) k/cumm 10.21 RBC (4.00-5.20) m/cumm 3.70 L Hgb (12.0-15.5) g/dL 11.4 L Hct (36.0-46.0) % 33.4 L MCV (80-95) fL 90.3 MCH (27.0-33.0) pg 30.8 MCHC (32.0-36.0) g/dL 34.1 RDW (11.7-14.6) % 14.2 Plt Count (130-400) x1000/uL 227 MPV (8.0-11.0) fL 8.9 Immature Gran % 0.6 Neutrophils % 61.2 Lymphocytes % 29.9 Monocytes % 7.3 Eosinophils % 0.8 Basophils % 0.2 Absolute Neutrophils (1.2-6.7) k/cumm 6.25 Absolute Lymphocytes (1.2-3.4) k/cumm 3.05 Absolute Monocytes (0.11-0.7) k/cumm 0.75 H Absolute Eosinophils (0.0-0.7) k/cumm 0.08 Absolute Basophils (0.0-0.2) k/cumm 0.02
--- NOTE | 2018-07-11 10:04 | ED.GENADUL_ITS ---
Discharge Plan Disposition Patient Disposition: HOME Discharge Details Chief Complaint: Dizzy/Sync Clinical Impression: Lightheadedness, Syncope Primary Care Provider: Rebekah Greco ED Provider: Dinh Mcfadden Home Meds and New Rx's Prescriptions: Continue prenat.vits,sabrina,ycn-ozhs-ddwky tablet 1 tab PO DAILY RF: 0 wxfkvhwakk-ptecwsgauvqze-mhka [Fioricet] 50-300-40 mg capsule 1 cap PO PRN PRNRF: 0 acetaminophen [Tylenol] 325 mg capsule 325 mg PO PRN PRNRF: 0 sertraline 50 mg tablet 100 mg PO DAILY RF: 0 Metoclopramide Hcl [Metoclopramide Hcl] 5 mg PO QID PRN (Reason: nausea) Qty: 120 RF: 1 Discharge Instructions Instructions: Syncope (ED) Additional Instructions: Please follow-up with your primary care physician and residential subcontractor. Call today to arrange follow-up. Return to the ER should you have any worsening or new concerning symptoms. Referrals: Franchesca Nunez MD [[facility] STAFF PHYSICIAN] - Rebekah Greco NP [Primary Care Provider] - Medical Decision Making 10:00 --33-year-old 001 at 13-14 weeks, complicated by hyperemesis, headaches, and intermittent dizziness, here after dizzy spell with brief syncope after standing. Patient is hypotensive. No tachycardia. No hypoxia or shortness of breath. Patient notes that she typically has low normal blood pressure 90/50. Will give IVF bolus. Will check screening labs to assess for electrolyte abnormalities. ECG to assess for arrhythmia reviewed and interpreted by me: Sinus bradycardia 59 bpm, normal axis, nondiagnostic. 11:30 -- Labs reviewed and nondiagnostic. Patient received IV fluid bolus. Patient reassessed and feels better. Ambulate without dysfunction. Patient requesting discharge. Patient was advised to maintain adequate oral hydration. I have advised her to follow-up with her primary care physician and residential subcontractor. I encouraged her to return should she have any worsening or new concerning symptoms. HPI General Mode of arrival: ambulatory . Date/Time Provider Initiated Documentation: 07/11/18 09:36 . Limitations to Documentation: no limitations . Information obtained by: patient . HPI Narrative: 33-year-old at 13-14 weeks, complicated by hyperemesis as well as migraine headaches, here with complaint of dizziness. Patient was recently seen here on 07/03/2018 for headache and slurred speech and had a comprehensive neurologic workup that included MRI/MRV of the brain that was negative. Patient was following up today at the neurology office and when standing to leave the office she experienced dizziness and a brief syncopal episode. She did not fall. She was helped to the ground and then had immediate return of consciousness. Symptoms were severe. She still has some dizziness at this time. No recent vomiting. Patient does note continued mild headache. No fever. No neck stiffness. No chest pain or shortness of breath. Related Data Home Medications Medication Instructions Recorded Confirmed metoclopramide HCl [metoclopramide 5 mg PO QID PRN #120 tab NS 06/25/18 07/11/18 HCl] acetaminophen 325 mg capsule 325 mg PO PRN PRN cap 07/11/18 07/11/18 irpzogfymr-aawajvddfpypq-etzmcnag 1 cap PO PRN PRN cap 07/11/18 07/11/18 50 mg-300 mg-40 mg capsule 1 tab PO DAILY 07/11/18 07/11/18 vitamin,calcium,wuqrulbu-cbkk-ptiwo acid tablet sertraline 50 mg tablet 100 mg PO DAILY tab-cap 07/11/18 07/11/18 Previous Rx's Medication Instructions Recorded metoclopramide HCl [metoclopramide 5 mg PO QID PRN #120 tab NS 06/25/18 HCl] Allergies Allergy/AdvReac Type Severity Reaction Status Date / Time hydrocodone AdvReac Unknown Vomiting Unverified 07/04/18 15:29 hydrocodone bitartrate AdvReac Unknown Vomiting Unverified 07/04/18 15:29 [From Vicodin] General Stated Complaint: Dizzy/Sync SATNAM: 3 Review of Systems Review of Systems All systems reviewed & are unremarkable except as noted in HPI and below Constitutional Reports headache(s) ENT Reports headache(s) Cardiovascular Denies chest pain, Reports syncope, Denies edema, Denies irregular heart rhythm , Reports lightheadedness, Denies palpitations and Denies dyspnea Respiratory Denies dyspnea Neurologic Reports syncope and Reports headache(s) Endocrine Denies palpitations PFSH Family History Paternal Grandfather Neoplasm Mother Neoplasm Father No problems noted. Sister No problems noted. Medical History Chronic daily headache (Acute) Placenta previa antepartum (Acute) Insomnia (Chronic) Anxiety (Chronic) Atopic dermatitis (Chronic) Mass of right breast (Resolved) Allergic rhinitis (Chronic) Gastric mass Hyperemesis affecting , antepartum (Acute) Social History household members: family Smoking/Tobacco Use Status: Never additional social history: She is . She has a 3yo daughter Vane. 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 No smoking, eTOH, or illicit drug use. Surgical History Biopsy of breast (Resolved 12/22/16) Colposcopy Cervix With Loop Electrode Conization Foot Arthrodesis Knee Surgery Open Distal Gastrectomy and Billroth 1 (07/08/17) Exam Const General: cooperative and no acute distress HENMT Head: normocephalic and atraumatic Mouth: moist mucous membranes Eyes Conjunctivae: normal conjunctivae Sclera: normal sclerae EOM: EOM intact bilaterally Neck Neck: trachea midline and supple Resp Auscultation: clear to auscultation bilaterally, no rales, no rhonchi and no wheezes Cardio Jugular venous pressure: no JVD Rate: regular rate and not tachycardic Rhythm: regular rhythm GI Palpation: soft, not firm, no guarding, no masses, not rigid and nontender Skin General skin exam: no rashes or lesions noted Neuro General: alert, awake, oriented x3, tone normal, moves all extremities and meningeal signs present Cognition: normal cognition Extrem General: no edema Psych Appearance: grossly normal Mental Status: mental status grossly normal Speech and Movement: speech and movement normal Course Vital Signs Temperature 36.5 C 07/11/18 09:17 Pulse 57 L 07/11/18 09:17 Respiratory Rate 17 07/11/18 09:17 Blood Pressure 89/36 L 07/11/18 09:17 Pulse Oximetry 99 07/11/18 09:17 Temperature 36.5 C 07/11/18 09:17 Temperature Source Temporal Artery Scan 07/11/18 09:17 Pulse 57 L 07/11/18 09:17 Respiratory Rate 17 07/11/18 09:17 Respiratory Effort 07/11/18 09:22 Respiratory Depth Normal 07/11/18 09:22 Respiratory Pattern Normal 07/11/18 09:22 Blood Pressure 89/36 L 07/11/18 09:17 Blood Pressure Position Supine 07/11/18 09:17 Pulse Oximetry 99 07/11/18 09:17 Oxygen Delivery Method Room Air 07/11/18 09:17 Oxygen Flow Rate 0 07/11/18 09:17 Pain Level 2 07/11/18 09:17 Lab/Test Results Lab/Test Results: Laboratory Tests Range/Units 07/11/18 09:40 WBC (4.4-10.8) k/cumm 10.21 RBC (4.00-5.20) m/cumm 3.70 L Hgb (12.0-15.5) g/dL 11.4 L Hct (36.0-46.0) % 33.4 L MCV (80-95) fL 90.3 MCH (27.0-33.0) pg 30.8 MCHC (32.0-36.0) g/dL 34.1 RDW (11.7-14.6) % 14.2 Plt Count (130-400) x1000/uL 227 MPV (8.0-11.0) fL 8.9 Immature Gran % 0.6 Neutrophils % 61.2 Lymphocytes % 29.9 Monocytes % 7.3 Eosinophils % 0.8 Basophils % 0.2 Absolute Neutrophils (1.2-6.7) k/cumm 6.25 Absolute Lymphocytes (1.2-3.4) k/cumm 3.05 Absolute Monocytes (0.11-0.7) k/cumm 0.75 H Absolute Eosinophils (0.0-0.7) k/cumm 0.08 Absolute Basophils (0.0-0.2) k/cumm 0.02
[2018-07-11 10:22] LABS: ALT 32 U/L (12-78); AST 22 U/L (15-37); Albumin 3.3 g/dL (3.4-5.0); Alkaline Phosphatase 54 U/L (46-116); Anion Gap 9.1 mmol/L (3-11); BUN 11 mg/dL (7-18); Bilirubin, Direct 0.06 mg/dL (0.00-0.20); Bilirubin, Total 0.2 mg/dL (0.2-1.0); CO2 24.9 mmol/L (21.0-32.0); CREATININE 0.55 mg/dL (0.55-1.02); Calcium 8.6 mg/dL (8.5-10.1); Chloride 102 mmol/L (98-107); Glucose 88 mg/dL (70-100); Magnesium 1.8 mg/dL (1.8-2.4); NT-proBNP 30 pg/mL; Potassium 3.8 mmol/L (3.5-5.1); Sodium 136 mmol/L (136-145); Total Protein 6.6 g/dL (6.4-8.2); Troponin I < 0.02 ng/mL (0.00-0.06)
[2018-07-11 11:51] VITALS: BP 88/43; PULSE 56; RESP 16; TEMP 36.7; O2SAT 98
== END 2018-07-11 11:58 | disposition home or self-care (01) ==
PROVIDERS: Emergency Provider Student in an Organized Health Care Education/Training Program; PCP Nurse Practitioner
DX: R42 Dizziness and giddiness (principal); O26.52 Maternal hypotension syndrome, second trimester; O21.0 Mild hyperemesis gravidarum; Z3A.14 14 weeks gestation of pregnancy; R55 Syncope and collapse
CPT/HCPCS: 36592; 80053; 80076; 81025; 93005; 96360; 99284; 83735; 83880; 84484; 85025; 93010; 99285

== ENCOUNTER 2018-07-28 01:29 | Outpatient (RCR) | payer BC, SELFPAY | END 2018-08-16 23:59 | disposition home or self-care (01) | LOC: INF 01:29 | PROVIDERS: PCP Nurse Practitioner Family; Visit Provider Obstetrics & Gynecology Gynecology | DX: O21.1 Hyperemesis gravidarum with metabolic disturbance (principal); Z45.2 Encounter for adjustment and management of vascular access device; Z3A.15 15 weeks gestation of pregnancy ==

== ENCOUNTER 2018-08-03 10:13 | Outpatient (REF) | payer BC, SELFPAY ==
[2018-08-03 11:38] LABS: Abs Immature Grans 0.09 k/cumm (0.0-0.09); Absolute Basophil Count 0.02 k/cumm (0.0-0.2); Absolute Eosinophil Count 0.12 k/cumm (0.0-0.7); Absolute Lymphocyte Count 3.57 k/cumm (1.2-3.4); Absolute Monocyte Count 0.94 k/cumm (0.11-0.7); Absolute Neutrophil Count 5.94 k/cumm (1.2-6.7); Basophils % 0.2; Eosinophils % 1.1; HCT 34.3 % (36.0-46.0); HGB 11.6 g/dL (12.0-15.5); Immature Grans % 0.8; Lymphocytes % 33.4; Mean Corp. HGB Concentration 33.8 g/dL (32.0-36.0); Mean Corpuscular Hemoglobin 30.8 pg (27.0-33.0); Mean Platelet Volume 9.6 fL (8.0-11.0); Monocytes % 8.8; Neutrophils % 55.7; Platelet Count 250 x1000/uL (130-400); RBC 3.77 m/cumm (4.00-5.20); RBC Distribution Width 13.7 % (11.7-14.6); White Blood Cell Count 10.68 k/cumm (4.4-10.8)
[2018-08-03 12:25] LABS: *AMPHETAMINES SCREEN URINE Negative (Negative); *BARBITURATES SCREEN URINE Negative (Negative); *BENZODIAZEPINES SCREEN URINE Negative (Negative); Cannabinoids THC Negative (Negative); Cocaine Screen,Urine Negative (Negative); METHADONE URINE SCREEN Negative (Negative); OPIATES URINE SCREEN Negative (Negative)
[2018-08-03 12:31] LABS: Tricyclic Antidepressants Negative (Negative)
[2018-08-03 12:31] LABS: TSH (W/Ref FT4) 0.98 uIU/mL (0.358-3.74)
[2018-08-04 10:01] LABS: Hepatitis B Surface Ag Negative (NEGAT)
[2018-08-04 10:28] LABS: Hepatitis C Ab w Rflx HCV PCR Negative (NEGAT)
[2018-08-04 11:50] LABS: Rubella IgG Ab (UVM) Positive; Syphilis Serology (RPR) Negative (Negative); Varicella IgG Antibody Positive
== END 2018-08-03 10:33 ==
LOC: LBO 10:13
PROVIDERS: PCP Nurse Practitioner Family; Visit Provider Obstetrics & Gynecology Gynecology
DX: Z34.91 Encounter for supervision of normal pregnancy, unspecified, first trimester (principal); Z11.59 Encounter for screening for other viral diseases; Z11.3 Encounter for screening for infections with a predominantly sexual mode of transmission
CPT/HCPCS: 36415; 80055; 80307; 86787; 86803; 87340; 84443; 86592; 86762; 87086

== ENCOUNTER 2018-10-09 07:18 | Outpatient (CLI) | payer BC, SELFPAY ==
[2018-10-09 09:19] LABS: HCT 30.9 % (36.0-46.0); HGB 9.8 g/dL (12.0-15.5); Mean Corp. HGB Concentration 31.7 g/dL (32.0-36.0); Mean Corpuscular Hemoglobin 26.8 pg (27.0-33.0); Mean Corpuscular Volume 84.7 fL (80-95); Mean Platelet Volume 10.1 fL (8.0-11.0); Platelet Count 232 x1000/uL (130-400); RBC 3.65 m/cumm (4.00-5.20); RBC Distribution Width 13.2 % (11.7-14.6); White Blood Cell Count 11.15 k/cumm (4.4-10.8)
[2018-10-09 09:24] LABS: Glucose,1 Hr (Glucola) 98 mg/dL (80-140)
== END 2018-10-09 07:38 ==
PROVIDERS: PCP Nurse Practitioner Family; Visit Provider Obstetrics & Gynecology Gynecology
DX: Z34.92 Encounter for supervision of normal pregnancy, unspecified, second trimester (principal)
CPT/HCPCS: 36415; 82950; 85027

== ENCOUNTER 2018-10-27 16:25 | Outpatient (CLI) | payer BC, SELFPAY ==
[2018-10-27 16:46] LABS: HCT 30.3 % (36.0-46.0); HGB 9.6 g/dL (12.0-15.5); Mean Corp. HGB Concentration 31.7 g/dL (32.0-36.0); Mean Corpuscular Hemoglobin 25.9 pg (27.0-33.0); Mean Corpuscular Volume 81.7 fL (80-95); Mean Platelet Volume 10.6 fL (8.0-11.0); Platelet Count 217 x1000/uL (130-400); RBC 3.71 m/cumm (4.00-5.20); White Blood Cell Count 10.75 k/cumm (4.4-10.8)
== END 2018-10-27 16:45 ==
PROVIDERS: PCP Nurse Practitioner Family; Visit Provider Obstetrics & Gynecology
DX: Z34.93 Encounter for supervision of normal pregnancy, unspecified, third trimester (principal); Z67.91 Unspecified blood type, Rh negative; Z01.84 Encounter for antibody response examination
CPT/HCPCS: 36415; 85027; 86850; 86900; 86901; 90384

== ENCOUNTER 2018-11-10 00:44 | Outpatient (CLI) | payer BC, SELFPAY ==
--- NOTE | 2018-11-10 16:25 | DI.US_ITS ---
SYMPTOM/DIAGNOSIS: S>D, UTERINE SIZE DATE DISCREPANCY, 026.849 OB ULTRASOUND: Comparison is made with 10 Jul 2018. The fetus is in cephalic position. The placenta is anterior. The biometric measurements correspond to 33 weeks, 6 days which is within the expected range. The amniotic fluid index is 13, also in the normal range. No abnormalities are seen. IMPRESSION: size and weight are within the expected range. Many abnormalities cannot be diagnosed. A normal exam does not exclude a congenital anomaly. Radiology No. [id number] LMP: 03/23/18 Exam Date: 11/10/18 [facility] wks days on EDC ([facility]) 12/28/18 Confirmed: HISTORY: PREDICTED GESTATIONAL AGE NUMBER 33 +1 weeks with a range of 32 +1 week to 34 +1 weeks. 1 Determined by___1STUS___LMP___HISTORY Info. pertaining to fetus # PLACENTA PRESENTATION Grade I-II Cephalic_X__ Anterior___Posterior___ Breech____ Right Left Transverse(head right___ Fundal___Low-lying___Previa___ Transverse(head left___ Varying BIOMETRY AMNIOTIC FLUID BPD: 84 mm 33 +6 weeks Normal HC: 207 mm 34 +1 weeks AC: 307 mm 34 +5 weeks FL: 63 mm 32 +4 weeks AMNIOTIC FLUID INDEX >26 WK CRL: mm weeks Cisterna Magna: mm CI: 79.5 RUQ:_2.46 LUQ___3.22 Cerebellum: cm EFW: 2321 grams 68 Percentile RLQ:__4.41____LLQ__2.95 Total:_13_cms Composite AGE= 33 +6 wks EDC by US__12/23/2018 BIOPHYSICAL PROFILE ANATOMY IDENTIFIED SCORE 0/2 Heart: 4-Chamber_XX__Rate:BPM_133 BPM___ LVOT: RVOT: Amniotic Fluid(>2cms)____ Stomach:__X Kidneys: Respirations (>30 secs) Bladder:___X Post. Fossa: Body Flex/Extension 3 vessel cord: Ventricles: cord insertion: Lips:__XX__ Extremity Flex/Extension spinal morphology: Nose: XX Total Score= Palate: NS=not seen
== END 2018-11-10 01:04 ==
PROVIDERS: PCP Nurse Practitioner Family; Visit Provider Obstetrics & Gynecology
DX: O26.843 Uterine size-date discrepancy, third trimester (principal)
CPT/HCPCS: 76816

== ENCOUNTER 2018-12-04 18:51 | Outpatient (REF) | payer BC, SELFPAY | END 2018-12-04 19:11 | LOC: LBN 18:51 | PROVIDERS: PCP Nurse Practitioner; Visit Provider Obstetrics & Gynecology | DX: Z34.93 Encounter for supervision of normal pregnancy, unspecified, third trimester (principal); Z36.85 Encounter for antenatal screening for Streptococcus B | CPT/HCPCS: 87081 ==

== ENCOUNTER 2018-12-11 09:37 | Outpatient (CLI) | payer BC, SELFPAY ==
[2018-12-11 10:01] LABS: HCT 32.8 % (36.0-46.0); Mean Corp. HGB Concentration 30.5 g/dL (32.0-36.0); Mean Corpuscular Hemoglobin 22.8 pg (27.0-33.0); Mean Corpuscular Volume 74.9 fL (80-95); Mean Platelet Volume 12.2 fL (8.0-11.0); Platelet Count 171 x1000/uL (130-400); RBC 4.38 m/cumm (4.00-5.20); RBC Distribution Width 16.6 % (11.7-14.6); White Blood Cell Count 10.01 k/cumm (4.4-10.8)
[2018-12-11 10:31] LABS: COMMENT (LAB VIEW ONLY) 91.17 mg/dL; Prot/Crea Ur Ratio 0.12
[2018-12-11 11:05] LABS: ALT 17 U/L (12-78); AST 28 U/L (15-37); BUN 10 mg/dL (7-18); CREATININE 0.74 mg/dL (0.55-1.02); Uric Acid 5.6 mg/dL (2.6-6.0)
== END 2018-12-11 09:57 ==
PROVIDERS: PCP Nurse Practitioner; Visit Provider Obstetrics & Gynecology
DX: O12.13 Gestational proteinuria, third trimester (principal); R80.9 Proteinuria, unspecified
CPT/HCPCS: 36415; 84520; 85027; 82565; 84156; 84450; 84460; 84550

== ENCOUNTER 2018-12-24 03:18 | Inpatient (IN) | payer BC, SELFPAY ==
[2018-12-24] MEDS: Ibuprofen 600 MG TAB (05:08)
[2018-12-24] MEDS: Acetaminophen 325 MG TAB (05:08)
[2018-12-24] MEDS: Ibuprofen 600 MG TAB PO ×2 (12:44→19:37)
[2018-12-24] MEDS: Acetaminophen 325 MG TAB 650 MG PO ×3 (12:45→22:01)
[2018-12-25] MEDS: Ibuprofen 600 MG TAB PO ×3 (01:32→17:12)
[2018-12-25 07:32] LABS: HCT 28.6 % (36.0-46.0); HGB 8.9 g/dL (12.0-15.5); Mean Corp. HGB Concentration 31.1 g/dL (32.0-36.0); Mean Corpuscular Hemoglobin 23.1 pg (27.0-33.0); Mean Corpuscular Volume 74.1 fL (80-95); Mean Platelet Volume 11.4 fL (8.0-11.0); Platelet Count 175 x1000/uL (130-400); RBC 3.86 m/cumm (4.00-5.20); RBC Distribution Width 18.6 % (11.7-14.6); White Blood Cell Count 11.07 k/cumm (4.4-10.8)
[2018-12-25] MEDS: Acetaminophen 325 MG TAB 650 MG PO ×3 (10:19→21:33)
[2018-12-26] MEDS: Ibuprofen 600 MG TAB PO (11:05)
[2018-12-26] MEDS: Acetaminophen 325 MG TAB 650 MG PO (11:05)
== END 2018-12-26 17:30 | disposition home or self-care (01) | DRG 807 ==
PROVIDERS: Admitting Provider Obstetrics & Gynecology; PCP Nurse Practitioner; Visit Provider Obstetrics & Gynecology
DX: O62.3 Precipitate labor (principal); Z37.0 Single live birth; Z3A.39 39 weeks gestation of pregnancy; O92.29 Other disorders of breast associated with pregnancy and the puerperium; O26.893 Other specified pregnancy related conditions, third trimester; Z67.11 Type A blood, Rh negative
CPT/HCPCS: 36415; 85027; 85461; 86850; 86900; 86901; 90384; J2790

== ENCOUNTER 2019-01-03 10:22 | Emergency (ER) | payer BC, SELFPAY ==
[2019-01-03] VITALS (14 sets, daily range): BP systolic 112–113; BP diastolic 60–62; PULSE 88–91; RESP 16; TEMP 36.5–36.6; O2SAT 86–98
--- NOTE | 2019-01-03 10:56 | W.ED.GENAD ---
Discharge Plan Disposition Patient Disposition: HOME Condition: Improving Discharge Details Chief Complaint: Abd Prob Clinical Impression: Abdominal pain Primary Care Provider: Rebekah Greco ED Provider: Arsen Gunter Home Meds and New Rx's Prescriptions: New pantoprazole [Protonix] 40 mg tablet,delayed release (DR/EC) 40 mg PO DAILY Qty: 30 RF: 0 metoclopramide HCl 10 mg tablet 10 mg PO Q6H PRN (Reason: nausea and vomiting) Qty: 10 RF: 0 No Action metoclopramide HCl [Reglan] 5 mg tablet 5 mg PO QID RF: 0 sertraline 100 mg tablet 100 mg PO DAILY Qty: 90 RF: 4 prenat.vits,sabrina,ccd-klor-oeubo tablet 1 tab PO DAILY RF: 0 xktquftepd-yxxhtlffupcxk-kqrm [Fioricet] 50-300-40 mg capsule 1 cap PO PRN PRNRF: 0 acetaminophen [Tylenol] 325 mg capsule 325 mg PO PRN PRNRF: 0 Discharge Instructions Instructions: Abdominal Pain (ED) Additional Instructions: 1. Drink plenty of fluids. 2. Continue all medications as prescribed. 3. Acetaminophen 1000mg every 4 hours (up to 5 time a day) and/or ibuprofen 600mg every 6 hours as needed for fever or pain. 4. Protonix 40 mg once a day. 5. Reglan 25 mg every 6 hours as needed. Return to the Emergency Department (ED) if your condition worsens, does not improve as expected, or for ANY other concerns. Specifically, return if you have new or uncontrolled pain, worsening fever, difficulty breathing, vomiting, or are unable to drink fluids. Discharge Data Discharge Date/Time-TO BE ENTERED AT DEPARTURE: 01/03/19 14:51 Medical Decision Making 32-year-old with recent D&C presents with increased subjective fevers, pelvic pain, and generalized malaise. Exam significant for lower abdominal tenderness. Clinically improved after receiving IV crystalloid and IV ketorolac. Labs nondiagnostic. Pelvic ultrasound suggestive of endometritis. Evaluated in the ED by Dr. Valente who admitted the patient for a likely repeat D and C. Prior to admission, treated with IV gentamicin, IV clindamycin, IV crystalloid, and IV hydromorphone. Remained clinically stable prior to admission. Medical Records Medical records reviewed: Yes I reviewed the patient's medical records. Imaging Data Radiologic Study: Attestation: I personally reviewed and interpreted this imaging study as follows: Imaging: Ultrasound (Transvaginal/transabdominal) My impression: Increase intravaginal contents and thickened endometrium. Interpreted independently contemporaneously by myself Radiologist's impression: Same Lab Data Lab results reviewed: Yes I reviewed the patient's lab results. Lab results narrative: Laboratory Results - last 24 hr WBC 8.22 k/cumm (4.4-10.8) 01/03/19 11:10 RBC 4.67 m/cumm (4.00-5.20) 01/03/19 11:10 Hgb 11.1 g/dL (12.0-15.5) L 01/03/19 11:10 Hct 34.9 % (36.0-46.0) L 01/03/19 11:10 MCV 74.7 fL (80-95) L 01/03/19 11:10 MCH 23.8 pg (27.0-33.0) L 01/03/19 11:10 MCHC 31.8 g/dL (32.0-36.0) L 01/03/19 11:10 RDW 20.9 % (11.7-14.6) H 01/03/19 11:10 Plt Count 261 x1000/uL (130-400) 01/03/19 11:10 MPV 8.8 fL (8.0-11.0) 01/03/19 11:10 Immature Gran % 0.2 01/03/19 11:10 Neutrophils % 80.8 01/03/19 11:10 Lymphocytes % 13.5 01/03/19 11:10 Monocytes % 4.3 01/03/19 11:10 Eosinophils % 1.1 01/03/19 11:10 Basophils % 0.1 01/03/19 11:10 Absolute Neutrophils 6.64 k/cumm (1.2-6.7) 01/03/19 11:10 Absolute Lymphocytes 1.11 k/cumm (1.2-3.4) L 01/03/19 11:10 Absolute Monocytes 0.35 k/cumm (0.11-0.7) 01/03/19 11:10 Absolute Eosinophils 0.09 k/cumm (0.0-0.7) 01/03/19 11:10 Absolute Basophils 0.01 k/cumm (0.0-0.2) 01/03/19 11:10 Differential Comment Rbc morph reviewed 01/03/19 11:10 RBC Morphology See below 01/03/19 11:10 Polychromasia Present 01/03/19 11:10 Hypochromasia 3+ 01/03/19 11:10 Anisocytosis 2+ 01/03/19 11:10 Microcytosis 3+ 01/03/19 11:10 Sodium 138 mmol/L (136-145) 01/03/19 11:10 Potassium 3.8 mmol/L (3.5-5.1) 01/03/19 11:10 Chloride 104 mmol/L (98-107) 01/03/19 11:10 Carbon Dioxide 22.6 mmol/L (21.0-32.0) 01/03/19 11:10 Anion Gap 11.4 mmol/L (3-11) H 01/03/19 11:10 BUN 16 mg/dL (7-18) 01/03/19 11:10 Creatinine 0.83 mg/dL (0.55-1.02) 01/03/19 11:10 Estimated GFR/1.73 m2 >= 60.00 (mL/min/1.73m2) 01/03/19 11:10 Glucose 86 mg/dL (70-100) 01/03/19 11:10 Calcium 8.0 mg/dL (8.5-10.1) L 01/03/19 11:10 Magnesium 1.8 mg/dL (1.8-2.4) 01/03/19 11:10 Total Bilirubin 0.3 mg/dL (0.2-1.0) 01/03/19 11:10 Conjugated Bilirubin 0.07 mg/dL (0.00-0.20) 01/03/19 11:10 AST 34 U/L (15-37) 01/03/19 11:10 ALT 47 U/L (12-78) 01/03/19 11:10 Alkaline Phosphatase 106 U/L (46-116) 01/03/19 11:10 Total Protein 6.8 g/dL (6.4-8.2) 01/03/19 11:10 Albumin 3.1 g/dL (3.4-5.0) L 01/03/19 11:10 Lipase 98 U/L (73-393) 01/03/19 11:10 Beta HCG, Quant Cancelled 01/03/19 11:33 HPI 43-year-old woman with a history of chronic constipation and recurrent abdominal pain. Had remote abdominal surgery with previous excision of a benign mass. Presents with severe abdominal pain and associated nausea. Initially had onset in her pelvic region with now gradually more generalized superior discomfort. Pain described as sharp and cramping. She denies significant abdominal distention. She has had mixed episodes of constipation and diarrhea over the past days with no rectal bleeding. She denies fevers/chills, dyspnea, congestion. She has had no urinary symptoms. Previous evaluated here for abdominal pain with a nondiagnostic CT and a diagnosis of constipation. Unsure if her current pain is similar to previous episodes. General Date/Time Provider Initiated Documentation: 01/03/19 10:38. Related Data Home Medications Medication Instructions Recorded Confirmed acetaminophen 325 mg capsule 325 mg PO PRN PRN cap 07/11/18 01/03/19 thntzitmdc-bzuacgjxozqdk-ziycammj 1 cap PO PRN PRN cap 07/11/18 01/03/19 50 mg-300 mg-40 mg capsule 1 tab PO DAILY 07/11/18 01/03/19 vitamin,calcium,cepfxtzn-ktns-kfzxp acid tablet metoclopramide 5 mg tablet 5 mg PO QID 08/16/18 01/03/19 sertraline 100 mg tablet 100 mg PO DAILY #90 tab 08/16/18 01/03/19 metoclopramide HCl 10 mg PO Q6H PRN #10 tab 01/03/19 pantoprazole [Protonix] 40 mg PO DAILY #30 tab 01/03/19 Previous Rx's Medication Instructions Recorded sertraline 100 mg tablet 100 mg PO DAILY #90 tab 08/16/18 metoclopramide HCl 10 mg PO Q6H PRN #10 tab 01/03/19 pantoprazole [Protonix] 40 mg PO DAILY #30 tab 01/03/19 Allergies Allergy/AdvReac Type Severity Reaction Status Date / Time hydrocodone AdvReac Unknown Vomiting Verified 01/03/19 10:32 hydrocodone bitartrate AdvReac Unknown Vomiting Verified 01/03/19 10:32 [From Vicodin] General Stated Complaint: Abd Prob SATNAM: 3 Review of Systems Review of Systems All systems are reviewed and are unremarkable except as noted in HPI and below: CONSTITUTIONAL: no fevers/chills, no weakness or change in appetite EYES: no change in vision HEENT: no throat pain or difficulty swallowing; no neck pain CARDIOVASCULAR: no chest pain, palpitations, leg swelling, or diaphoresis RESPIRATORY: no cough, dyspnea, wheezing GASTROINTESTINAL: Abdominal pain, nausea/emesis GENITOURINARY: no dysuria, flank pain, MUSCULOSKELETAL: no pack pain, myalgias, arthralgias INTEGUMENTARY: no rash, no wounds NEUROLOGIC: no headache, focal weakness, difficulty with speech, numbness PSYCHIATRIC: no confusion, no anxiety HEME: no easy bruising or bleeding ALLERGIC: no urticaria PFSH Medical History Chronic daily headache (Acute) Insomnia (Chronic) Anxiety (Chronic) Atopic dermatitis (Chronic) Mass of right breast (Resolved) Allergic rhinitis (Chronic) Gastric mass Hyperemesis affecting , antepartum (Resolved) Surgical History Biopsy of breast (Resolved 12/22/16) Colposcopy Cervix With Loop Electrode Conization Foot Arthrodesis Knee Surgery Open Distal Gastrectomy and Billroth 1 (07/08/17) Social History Smoking/Tobacco Use Status: Never Drug use: Never Household members: spouse and children Do you feel safe in your relationship?: Yes Additional Social history: She is . She has a 3yo daughter Vane. 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 No smoking, eTOH, or illicit drug use. History History 2 Para 1 Hx # Term Pregnancies 1 Multiple births 0 Hx # Pregnancies 0 Ectopic pregnancies 0 AB induced 0 Hx Number of Living Children 1 AB spontaneous 0 Exam Narrative Exam Narrative: Nursing note and vital signs have been reviewed and noted. GENERAL: alert, active, tearful and uncomfortable, well -hydrated, well-nourished HEENT: atraumatic/normocephalic, PERRLA, EOMI, conjunctiva clear, external ears/canals normal, nasal mucosa normal NECK: supple, full range of motion, no mass, normal lymphadenopathy, no thyromegaly CARDIOVASCULAR: RRR, no murmurs, nl pulses, no edema PULMONARY: nl effort, no audible wheezing or stridor, nl breath sounds with no focal deficit. no chest wall tenderness ABDOMEN: soft, mild generalized tenderness. Pain out of proportion to exam, non-distended, no mass, no organomegaly EXTREMITY: normal muscle tone, all joints with FROM, no deformity or tenderness SKIN: no exanthem appreciated NEURO: gross motor exam normal, normal stance and gait PSYCH: alert and oriented, Course Vital Signs Temperature 97.7 F 01/03/19 10:28 Pulse 91 H 01/03/19 10:28 Respiratory Rate 16 01/03/19 10:28 Blood Pressure 113/60 01/03/19 10:28 Pulse Oximetry 97 01/03/19 10:28 Temperature 97.7 F 01/03/19 10:28 Temperature Source Skin 01/03/19 10:28 Pulse 91 H 01/03/19 10:28 Respiratory Rate 16 01/03/19 10:28 Respiratory Effort Non-Labored 01/03/19 10:28 Blood Pressure 113/60 01/03/19 10:28 Blood Pressure Position Sitting 01/03/19 10:28 Pulse Oximetry 97 01/03/19 10:28 Oxygen Delivery Method Room Air 01/03/19 10:28 Oxygen Flow Rate 0 01/03/19 10:28 Pain Level 7 01/03/19 10:28
--- NOTE | 2019-01-03 11:02 | ED.GENADUL_ITS ---
Discharge Plan Disposition Patient Disposition: HOME Condition: Improving Discharge Details Chief Complaint: Abd Prob Clinical Impression: Abdominal pain Primary Care Provider: Rebekah Greco ED Provider: Arsen Gunter Home Meds and New Rx's Prescriptions: New pantoprazole [Protonix] 40 mg tablet,delayed release (DR/EC) 40 mg PO DAILY Qty: 30 RF: 0 metoclopramide HCl 10 mg tablet 10 mg PO Q6H PRN (Reason: nausea and vomiting) Qty: 10 RF: 0 No Action metoclopramide HCl [Reglan] 5 mg tablet 5 mg PO QID RF: 0 sertraline 100 mg tablet 100 mg PO DAILY Qty: 90 RF: 4 prenat.vits,sabrina,kxi-eodp-jgacu tablet 1 tab PO DAILY RF: 0 zufpxuxojh-xerlhplmdjrbi-povj [Fioricet] 50-300-40 mg capsule 1 cap PO PRN PRNRF: 0 acetaminophen [Tylenol] 325 mg capsule 325 mg PO PRN PRNRF: 0 Discharge Instructions Instructions: Abdominal Pain (ED) Additional Instructions: 1. Drink plenty of fluids. 2. Continue all medications as prescribed. 3. Acetaminophen 1000mg every 4 hours (up to 5 time a day) and/or ibuprofen 600mg every 6 hours as needed for fever or pain. 4. Protonix 40 mg once a day. 5. Reglan 25 mg every 6 hours as needed. Return to the Emergency Department (ED) if your condition worsens, does not improve as expected, or for ANY other concerns. Specifically, return if you have new or uncontrolled pain, worsening fever, difficulty breathing, vomiting, or are unable to drink fluids. Discharge Data Discharge Date/Time-TO BE ENTERED AT DEPARTURE: 01/03/19 14:51 Medical Decision Making 32-year-old with recent D&C presents with increased subjective fevers, pelvic pain, and generalized malaise. Exam significant for lower abdominal tenderness. Clinically improved after receiving IV crystalloid and IV ketorolac. Labs nondiagnostic. Pelvic ultrasound suggestive of endometritis. Evaluated in the ED by Dr. Valente who admitted the patient for a likely repeat D and C. Prior to admission, treated with IV gentamicin, IV clindamycin, IV crystalloid, and IV hydromorphone. Remained clinically stable prior to admission. Medical Records Medical records reviewed: Yes I reviewed the patient's medical records. Imaging Data Radiologic Study: Attestation: I personally reviewed and interpreted this imaging study as follows: Imaging: Ultrasound (Transvaginal/transabdominal) My impression: Increase intravaginal contents and thickened endometrium. Interpreted independently contemporaneously by myself Radiologist's impression: Same Lab Data Lab results reviewed: Yes I reviewed the patient's lab results. Lab results narrative: Laboratory Results - last 24 hr WBC 8.22 k/cumm (4.4-10.8) 01/03/19 11:10 RBC 4.67 m/cumm (4.00-5.20) 01/03/19 11:10 Hgb 11.1 g/dL (12.0-15.5) L 01/03/19 11:10 Hct 34.9 % (36.0-46.0) L 01/03/19 11:10 MCV 74.7 fL (80-95) L 01/03/19 11:10 MCH 23.8 pg (27.0-33.0) L 01/03/19 11:10 MCHC 31.8 g/dL (32.0-36.0) L 01/03/19 11:10 RDW 20.9 % (11.7-14.6) H 01/03/19 11:10 Plt Count 261 x1000/uL (130-400) 01/03/19 11:10 MPV 8.8 fL (8.0-11.0) 01/03/19 11:10 Immature Gran % 0.2 01/03/19 11:10 Neutrophils % 80.8 01/03/19 11:10 Lymphocytes % 13.5 01/03/19 11:10 Monocytes % 4.3 01/03/19 11:10 Eosinophils % 1.1 01/03/19 11:10 Basophils % 0.1 01/03/19 11:10 Absolute Neutrophils 6.64 k/cumm (1.2-6.7) 01/03/19 11:10 Absolute Lymphocytes 1.11 k/cumm (1.2-3.4) L 01/03/19 11:10 Absolute Monocytes 0.35 k/cumm (0.11-0.7) 01/03/19 11:10 Absolute Eosinophils 0.09 k/cumm (0.0-0.7) 01/03/19 11:10 Absolute Basophils 0.01 k/cumm (0.0-0.2) 01/03/19 11:10 Differential Comment Rbc morph reviewed 01/03/19 11:10 RBC Morphology See below 01/03/19 11:10 Polychromasia Present 01/03/19 11:10 Hypochromasia 3+ 01/03/19 11:10 Anisocytosis 2+ 01/03/19 11:10 Microcytosis 3+ 01/03/19 11:10 Sodium 138 mmol/L (136-145) 01/03/19 11:10 Potassium 3.8 mmol/L (3.5-5.1) 01/03/19 11:10 Chloride 104 mmol/L (98-107) 01/03/19 11:10 Carbon Dioxide 22.6 mmol/L (21.0-32.0) 01/03/19 11:10 Anion Gap 11.4 mmol/L (3-11) H 01/03/19 11:10 BUN 16 mg/dL (7-18) 01/03/19 11:10 Creatinine 0.83 mg/dL (0.55-1.02) 01/03/19 11:10 Estimated GFR/1.73 m2 >= 60.00 (mL/min/1.73m2) 01/03/19 11:10 Glucose 86 mg/dL (70-100) 01/03/19 11:10 Calcium 8.0 mg/dL (8.5-10.1) L 01/03/19 11:10 Magnesium 1.8 mg/dL (1.8-2.4) 01/03/19 11:10 Total Bilirubin 0.3 mg/dL (0.2-1.0) 01/03/19 11:10 Conjugated Bilirubin 0.07 mg/dL (0.00-0.20) 01/03/19 11:10 AST 34 U/L (15-37) 01/03/19 11:10 ALT 47 U/L (12-78) 01/03/19 11:10 Alkaline Phosphatase 106 U/L (46-116) 01/03/19 11:10 Total Protein 6.8 g/dL (6.4-8.2) 01/03/19 11:10 Albumin 3.1 g/dL (3.4-5.0) L 01/03/19 11:10 Lipase 98 U/L (73-393) 01/03/19 11:10 Beta HCG, Quant Cancelled 01/03/19 11:33 HPI 43-year-old woman with a history of chronic constipation and recurrent abdominal pain. Had remote abdominal surgery with previous excision of a benign mass. Presents with severe abdominal pain and associated nausea. Initially had onset in her pelvic region with now gradually more generalized superior discomfort. Pain described as sharp and cramping. She denies significant abdominal distention. She has had mixed episodes of constipation and diarrhea over the past days with no rectal bleeding. She denies fevers/chills, dyspnea, congestion. She has had no urinary symptoms. Previous evaluated here for abdominal pain with a nondiagnostic CT and a diagnosis of constipation. Unsure if her current pain is similar to previous episodes. General Date/Time Provider Initiated Documentation: 01/03/19 10:38 . Related Data Home Medications Medication Instructions Recorded Confirmed acetaminophen 325 mg capsule 325 mg PO PRN PRN cap 07/11/18 01/03/19 yoglncjvwj-ejgnorqzbssfw-txywtvzr 1 cap PO PRN PRN cap 07/11/18 01/03/19 50 mg-300 mg-40 mg capsule 1 tab PO DAILY 07/11/18 01/03/19 vitamin,calcium,agbvqcqt-enov-qjdcs acid tablet metoclopramide 5 mg tablet 5 mg PO QID 08/16/18 01/03/19 sertraline 100 mg tablet 100 mg PO DAILY #90 tab 08/16/18 01/03/19 metoclopramide HCl 10 mg PO Q6H PRN #10 tab 01/03/19 pantoprazole [Protonix] 40 mg PO DAILY #30 tab 01/03/19 Previous Rx's Medication Instructions Recorded sertraline 100 mg tablet 100 mg PO DAILY #90 tab 08/16/18 metoclopramide HCl 10 mg PO Q6H PRN #10 tab 01/03/19 pantoprazole [Protonix] 40 mg PO DAILY #30 tab 01/03/19 Allergies Allergy/AdvReac Type Severity Reaction Status Date / Time hydrocodone AdvReac Unknown Vomiting Verified 01/03/19 10:32 hydrocodone bitartrate AdvReac Unknown Vomiting Verified 01/03/19 10:32 [From Vicodin] General Stated Complaint: Abd Prob SATNAM: 3 Review of Systems Review of Systems All systems are reviewed and are unremarkable except as noted in HPI and below: CONSTITUTIONAL: no fevers/chills, no weakness or change in appetite EYES: no change in vision HEENT: no throat pain or difficulty swallowing; no neck pain CARDIOVASCULAR: no chest pain, palpitations, leg swelling, or diaphoresis RESPIRATORY: no cough, dyspnea, wheezing GASTROINTESTINAL: Abdominal pain, nausea/emesis GENITOURINARY: no dysuria, flank pain, MUSCULOSKELETAL: no pack pain, myalgias, arthralgias INTEGUMENTARY: no rash, no wounds NEUROLOGIC: no headache, focal weakness, difficulty with speech, numbness PSYCHIATRIC: no confusion, no anxiety HEME: no easy bruising or bleeding ALLERGIC: no urticaria PFSH Medical History Chronic daily headache (Acute) Insomnia (Chronic) Anxiety (Chronic) Atopic dermatitis (Chronic) Mass of right breast (Resolved) Allergic rhinitis (Chronic) Gastric mass Hyperemesis affecting , antepartum (Resolved) Surgical History Biopsy of breast (Resolved 12/22/16) Colposcopy Cervix With Loop Electrode Conization Foot Arthrodesis Knee Surgery Open Distal Gastrectomy and Billroth 1 (07/08/17) Social History Smoking/Tobacco Use Status: Never Drug use: Never Household members: spouse and children Do you feel safe in your relationship?: Yes Additional Social history: She is . She has a 3yo daughter Vane. 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 No smoking, eTOH, or illicit drug use. History History 2 Para 1 Hx # Term Pregnancies 1 Multiple births 0 Hx # Pregnancies 0 Ectopic pregnancies 0 AB induced 0 Hx Number of Living Children 1 AB spontaneous 0 Exam Narrative Exam Narrative: Nursing note and vital signs have been reviewed and noted. GENERAL: alert, active, tearful and uncomfortable, well -hydrated, well- nourished HEENT: atraumatic/normocephalic, PERRLA, EOMI, conjunctiva clear, external ears/canals normal, nasal mucosa normal NECK: supple, full range of motion, no mass, normal lymphadenopathy, no thyromegaly CARDIOVASCULAR: RRR, no murmurs, nl pulses, no edema PULMONARY: nl effort, no audible wheezing or stridor, nl breath sounds with no focal deficit. no chest wall tenderness ABDOMEN: soft, mild generalized tenderness. Pain out of proportion to exam, non-distended, no mass, no organomegaly EXTREMITY: normal muscle tone, all joints with FROM, no deformity or tenderness SKIN: no exanthem appreciated NEURO: gross motor exam normal, normal stance and gait PSYCH: alert and oriented, Course Vital Signs Temperature 97.7 F 01/03/19 10:28 Pulse 91 H 01/03/19 10:28 Respiratory Rate 16 01/03/19 10:28 Blood Pressure 113/60 01/03/19 10:28 Pulse Oximetry 97 01/03/19 10:28 Temperature 97.7 F 01/03/19 10:28 Temperature Source Skin 01/03/19 10:28 Pulse 91 H 01/03/19 10:28 Respiratory Rate 16 01/03/19 10:28 Respiratory Effort Non-Labored 01/03/19 10:28 Blood Pressure 113/60 01/03/19 10:28 Blood Pressure Position Sitting 01/03/19 10:28 Pulse Oximetry 97 01/03/19 10:28 Oxygen Delivery Method Room Air 01/03/19 10:28 Oxygen Flow Rate 0 01/03/19 10:28 Pain Level 7 01/03/19 10:28
[2019-01-03 11:24] LABS: Abs Immature Grans 0.02 k/cumm (0.0-0.09); Absolute Basophil Count 0.01 k/cumm (0.0-0.2); Absolute Eosinophil Count 0.09 k/cumm (0.0-0.7); Absolute Lymphocyte Count 1.11 k/cumm (1.2-3.4); Absolute Monocyte Count 0.35 k/cumm (0.11-0.7); Absolute Neutrophil Count 6.64 k/cumm (1.2-6.7); Basophils % 0.1; Eosinophils % 1.1; HCT 34.9 % (36.0-46.0); HGB 11.1 g/dL (12.0-15.5); Immature Grans % 0.2; Lymphocytes % 13.5; Mean Corp. HGB Concentration 31.8 g/dL (32.0-36.0); Mean Corpuscular Hemoglobin 23.8 pg (27.0-33.0); Mean Corpuscular Volume 74.7 fL (80-95); Mean Platelet Volume 8.8 fL (8.0-11.0); Monocytes % 4.3; Neutrophils % 80.8; Platelet Count 261 x1000/uL (130-400); RBC 4.67 m/cumm (4.00-5.20); RBC Distribution Width 20.9 % (11.7-14.6); White Blood Cell Count 8.22 k/cumm (4.4-10.8)
[2019-01-03] MEDS: Lactated Ringers 1,000 ML 1000 ML IV ×2 (11:27→12:58)
[2019-01-03] MEDS: Metoclopramide 10 MG/2 ML VIAL IVP (11:27)
[2019-01-03] MEDS: HYDROmorphone 2 MG/ML VIAL 1 MG IVP (11:30)
[2019-01-03 11:36] LABS: ALT 47 U/L (12-78); AST 34 U/L (15-37); Albumin 3.1 g/dL (3.4-5.0); Alkaline Phosphatase 105 U/L (46-116); Anion Gap 11.4 mmol/L (3-11); BUN 16 mg/dL (7-18); Bilirubin, Total 0.3 mg/dL (0.2-1.0); CO2 22.6 mmol/L (21.0-32.0); CREATININE 0.83 mg/dL (0.55-1.02); Chloride 104 mmol/L (98-107); Glucose 86 mg/dL (70-100); Magnesium 1.8 mg/dL (1.8-2.4); Potassium 3.8 mmol/L (3.5-5.1); Sodium 138 mmol/L (136-145); Total Protein 6.7 g/dL (6.4-8.2)
[2019-01-03 11:44] LABS: Anisocytosis 2+; Diff Comment RBC Morph Reviewed; Hypochromasia 3+; Microcytosis 3+; Polychromasia Present
[2019-01-03] MEDS: Ketorolac 15 MG/ML VIAL 10 MG IVP (12:59)
--- NOTE | 2019-01-03 13:29 | DI.CT_ITS ---
SYMPTOMS/DIAGNOSIS: MID ABDOMINAL PAIN, H/O OF ABDOMINAL SURGERY TO REMOVE MASS BY STOMACH IN 2016, [address] SCAN OF THE ABDOMEN AND PELVIS: CT scan of the abdomen and pelvis was performed following the uneventful administration of intravenous contrast material. Comparison is 09/12/17. Dependent atelectatic changes are seen in the lungs. The liver is normal in size. No evidence of a hepatic mass is seen. The portal, superior mesenteric and splenic veins are patent. The gallbladder is negative. There is no biliary ductal dilatation. The pancreas, spleen and adrenal glands are unremarkable. The kidneys show normal and symmetric enhancement. No evidence of a solid renal mass or obstruction. The urinary bladder is intact. The uterus is enlarged. There is heterogeneous fluid seen within the endometrial canal. The patient is 10 days . The abdominal aorta is of normal caliber. No significant abdominal or pelvic adenopathy, ascites or pneumoperitoneum is present. The bowel shows no evidence of obstruction. There is a normal appendix present in the right lower quadrant. There is a small umbilical hernia containing an unremarkable loop of bowel and fat. Surgical clips are seen in the upper abdomen interposed between the stomach and the pancreatic head. The bones appear intact. IMPRESSION: 1. Enlarged uterus. Fluid and debris seen within the endometrial canal. This may be normal blood products. Differential considerations include retained products of conception, or infection or inflammatory process. Please correlate clinically. INTERIOR DESIGN COORDINATOR consult may be considered. Ultrasound may also be considered for further evaluation. 2. No evidence of an acute abdomen. The findings were discussed with Dr. Gunter on the date of the examination.
[2019-01-03 13:53] LABS: ALT 47 U/L (12-78); AST 34 U/L (15-37); Albumin 3.1 g/dL (3.4-5.0); Alkaline Phosphatase 106 U/L (46-116); Bilirubin, Direct 0.07 mg/dL (0.00-0.20); Bilirubin, Total 0.3 mg/dL (0.2-1.0); Lipase 98 U/L (73-393); Total Protein 6.8 g/dL (6.4-8.2)
[2019-01-03] MEDS: Omnipaque 350 MG/ML 100 ML BTL IV (14:09)
[2019-01-03] MEDS: Acetaminophen 500 MG TAB 1000 MG PO (14:48)
== END 2019-01-03 14:51 | disposition home or self-care (01) ==
PROVIDERS: Emergency Provider Emergency Medicine; PCP Nurse Practitioner
DX: R10.30 Lower abdominal pain, unspecified (principal)
CPT/HCPCS: 36415; 80053; 80076; 83690; 96361; 96374; 96375; 99285; 74177; 83735; 84702; 85025; 99284; J1885; J2765; J3490

== ENCOUNTER 2020-07-10 13:37 | Outpatient (REF) | payer BC, SELFPAY ==
--- NOTE | 2020-07-10 13:00 | PAPFT_PTH ---
PATIENT: Jerome Robledo LOC: [facility] U#:[id number] AGE/SX: 35/F ROOM: RE07/10/[address]: LUIS ARMANDO Freire : 1985 BED: DIS: 07/10/2020 SPEC #: [id number] RECD: 07/10/20 17:45 STATUS: RICH REQ #: [id number] DANNI: 07/10/20 13:[address]: Cadence Steele DEPT: [facility] Cytology RECD BY: Cindy Avendano ENTERED: 07/10/20 17:45 SP TYPE: PAPFT OT DR: Rebekah Greco APRN Tissues: 1 - CX/ENDOCX FOR PAP SMEARS Procedures: PAP THIN PREP/UVM Screening HPV DNA PROBE Comments: [id number]
== END 2020-07-10 13:57 ==
LOC: LBN 13:37
PROVIDERS: PCP Nurse Practitioner; Visit Provider Nurse Practitioner Family
DX: Z12.4 Encounter for screening for malignant neoplasm of cervix (principal); Z11.51 Encounter for screening for human papillomavirus (HPV)
CPT/HCPCS: 88142; 87624

== ENCOUNTER 2021-01-30 10:35 | Outpatient (CLI) | payer OTHER, SELFPAY ==
--- NOTE | 2021-01-30 09:30 | DI.RAD_ITS ---
EXAM: XR ELBOW RT COMPLETE CLINICAL HISTORY: right elbow pain. TECHNIQUE: 2D digital imaging was performed. COMPARISON: No exams were available for comparison FINDINGS: BONES: No acute fracture is present. No bony destructive lesion is seen. JOINTS: The elbow is normally aligned. No joint effusion is seen. SOFT TISSUE: Normal. IMPRESSION: Unremarkable radiographs of the right elbow. DATA REPOSITORY: RADIATION DOSE DELIVERED:
== END 2021-01-30 10:36 | disposition home or self-care (01) ==
LOC: DIORS 10:35
PROVIDERS: PCP Nurse Practitioner; Visit Provider Physician Assistant
DX: M25.521 Pain in right elbow (principal)
CPT/HCPCS: 73080

== ENCOUNTER 2021-04-02 00:38 | Outpatient (CLI) | payer OTHER, SELFPAY ==
--- NOTE | 2021-04-02 08:15 | DI.MRI_ITS ---
Exam(s) MR UPPER JOINT RT WO EXAM: MR UPPER JOINT RT WO CLINICAL HISTORY: rt elbow pain, m25.521 TECHNIQUE: Multiplanar multisequence MRI was performed without intravenous contrast. COMPARISON: CR XR ELBOW RT COMPLETE from 01/30/2021 CR XR ELBOW RT COMPLETE from 01/30/2021 FINDINGS: MARROW: There is no evidence of fracture, bone contusion, nor ominous osseous lesions. There are no osteochondral defects. ELBOW JOINT: There is no evidence of elbow joint effusion.No significant cartilage loss nor osteochon dral defect and there is no evidence of loose intra-articular body. There are no osteophytes. EPICONDYLES: There is no abnormal intraosseous signal in the epicondyles and there is no significant abnormal signal on the common extensor and flexor tendons. COLLATERAL LIGAMENTS: Intact TENDONS: The biceps tendon is intact. The brachialis tendon is intact. The triceps tendon is intact. CUBITAL TUNNEL/ULNAR NERVE: The ulnar nerve appears unremarkable beneath the cubital tunnel retinacul um and posterior to the medial epicondyle. There is no evidence of arthritic spur arising from the e picondyle nor olecranon causing impingement on the ulnar nerve. There is no evidence of accessory an coneus muscle causing impingement at this level. There is also no evidence of soft tissue mass nor g anglia on cyst causing impingement at this level. OTHER FINDINGS: IMPRESSION: 1. No significant findings in the elbow joint nor in the surrounding tissues. 2. No evidence of fracture, bone contusion, joint effusion, intra-articular loose body, nor osteochon dral defect. No significant osseous lesions. 3. No tendon tears nor epicondylitis evident. Collateral ligaments appear intact DATA REPOSITORY:
== END 2021-04-02 00:58 ==
PROVIDERS: PCP Nurse Practitioner; Visit Provider Student in an Organized Health Care Education/Training Program
DX: M25.521 Pain in right elbow (principal)
CPT/HCPCS: 73221

== ENCOUNTER 2021-04-19 12:02 | Emergency (ER) | payer BC, SELFPAY ==
[2021-04-19] VITALS (13 sets, daily range): BP systolic 112; BP diastolic 68; PULSE 45–57; RESP 10–19; TEMP 36.7–37.1; O2SAT 99–100
--- NOTE | 2021-04-19 12:22 | W.ED.GENAD ---
Discharge Plan Disposition Patient Disposition: HOME Condition: Improving Discharge Details Clinical Impression: Spasm of thoracic back muscle Primary Care Provider: Rebekah Greco ED Provider: Alexandre Nicholas Home Meds and New Rx's Prescriptions: New diazepam [Valium] 5 mg tablet 5 mg PO TID PRN (Reason: muscle spasm) Qty: 5 RF: 0 Continued mupirocin 2 % ointment 1 applic topical TID Qty: 15 RF: 0 levonorgestrel-ethinyl estrad [Jolessa] 0.15 mg-30 mcg (91) tablets,dose pack,3 month 1 tab PO DAILY Qty: 91 RF: 3 Discharge Instructions Instructions: Muscle Spasm (ED) Additional Instructions: May use the provided Valium every 6-8 hours as needed for muscular pain or spasm. No alcohol, driving, heavy equipment used while taking this medication. Continue to liberally hydrate with small, frequent sips of fluids. May gently massage or foam roll the area. Tylenol 650 to 975 mg every 4-6 hours, do not exceed 4 g/day. Ibuprofen 600 to 800 mg every 6-8 hours. Return for worsening discomfort, difficulty breathing, the development of a fever, or any other acute concerns. Medical Decision Making This is a healthy 36-year-old female who was standing in her kitchen, turned to her left and felt the abrupt onset of severe left-sided thoracic back spasms. She was not injured in any other way she has otherwise recently been well. She arrives afebrile but in some distress. She has palpable spasms of the thoracic musculature on exam. Patient given patient was given fluids, Valium. She had improvement and states her pain decreased from 9 out of 10 to approximately 4 out of 10. She does not have chest pain or shortness of breath. She is oxygenating 100% on room air. Discussed with her ongoing hydration, use of Valium for muscle relaxation at home. She is stable and improving, she understands indications to seek reevaluation. Questions were answered at the bedside with her prior to discharge. HPI General Mode of arrival: ambulatory. Date/Time Provider Initiated Documentation: 04/19/21 12:17. Limitations to Documentation: no limitations. Information obtained by: patient and family. History of Present Illness 36 year old F presents to the emergency department with the chief complaint of Left back muscle spasm, described as moderate, severe and similar to prior episodes, Quality is described as constant, and is localized to the back and left. Patient reports no radiation. Patient started experiencing this hour(s) and it has been constant. No relieving factors improve symptom(s), No exacerbating factors reported . Patient notes denies fever/chills, headaches, nausea/vomiting, rash, syncope and weakness. Related Data Home Medications Medication Instructions Recorded Confirmed levonorgestrel 0.15 mg-ethinyl 1 tab PO DAILY #91 dose pk 07/10/20 04/19/21 estradiol 30 mcg tablets,3 mos pack(91) mupirocin 2 % topical ointment 1 applic TOPICAL TID #15 g 02/11/21 02/11/21 diazepam [Valium] 5 mg PO TID PRN #5 tab 04/19/21 Previous Rx's Medication Instructions Recorded levonorgestrel 0.15 mg-ethinyl 1 tab PO DAILY #91 dose pk 07/10/20 estradiol 30 mcg tablets,3 mos pack(91) mupirocin 2 % topical ointment 1 applic TOPICAL TID #15 g 02/11/21 diazepam [Valium] 5 mg PO TID PRN #5 tab 04/19/21 Allergies Allergy/AdvReac Type Severity Reaction Status Date / Time hydrocodone AdvReac Unknown Vomiting Verified 04/19/21 12:17 hydrocodone bitartrate AdvReac Unknown Vomiting Verified 04/19/21 12:17 [From Vicodin] General Stated Complaint: Nk/Back Pain SATNAM: 3 Review of Systems Narrative: No recent illness. Otherwise healthy. 4 systems reviewed and negative [facility] Medical History Allergic rhinitis Anxiety Atopic dermatitis Chronic daily headache Onset 06/29/18. assoc with hyperemesis. MRA/MRI of brain nl. Occipital nerve block 06/29/18 with temporary improvement. 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 Patient remains nauseated but without emesis. Injury of right elbow region (08/19/20) Insomnia Mass of right breast U/S & Bx 12/22/16 Surgical History Biopsy of breast (12/22/16) Benign. [facility]. Colposcopy Cervix With Loop Electrode Conization Foot Arthrodesis Knee Surgery Open Distal Gastrectomy and Billroth 1 (07/08/17) For gastroduodenal mass. [facility]. Family History Paternal Grandfather Neoplasm Melanoma Colon [place] dx'ed 70s Mother Neoplasm Melanoma Father No problems noted. Sister No problems noted. 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 She has a 3yo daughter Vane. 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 No smoking, eTOH, or illicit drug use. History History 2 Para 1 Hx # Term Pregnancies 1 Multiple births 0 Hx # Pregnancies 0 Ectopic pregnancies 0 AB induced 0 Hx Number of Living Children 1 AB spontaneous 0 Past Pregnancies Del. Date GA/Weeks # Outcome Route Wgt Sex Labor Lgth Anesthesia Location Prov Complic 12/24/18 39 No Successful vaginal 3458.642 g Male Maria Antonia Nieves Delivery Date: 12/24/18 Franchesca Xavier Exam Narrative Exam Narrative: GEN: awake, alert, oriented 3. Pleasant, well groomed, interactive. HEAD: Normocephalic, atraumatic ENT: Mucous membranes moist, oropharynx unremarkable, External ear exam unremarkable EYES: PERRL, EOMI NECK: Full ROM, no SOCRATES, no menigismus CHEST/RESP: Nontender, clear to auscultation bilateral, no wheeze/rhonchi/rales CARDIOVASCULAR: RRR, no murmur, rub tiffany. 2+ Rad pulse bilateral ABDOMEN: Soft, nontender, no mass. +Bowel sounds Back: Left mid thoracic paraspinous muscular spasm on palp EXT: Full ROM, no edema, no rash Neuro: Grossly normal neurologic exam, conversant, interactive. Psych: Speech fluent, thoughts congruent, affect normal Course Vital Signs Vital signs: Vital Signs Temperature 37.1 C 04/19/21 12:10 Pulse 54 L 04/19/21 12:10 Blood Pressure 112/68 04/19/21 12:10 Pulse Oximetry 100 04/19/21 12:10 Temperature 37.1 C 04/19/21 12:10 Temperature Source Temporal Artery Scan 04/19/21 12:10 Pulse 54 L 04/19/21 12:10 Respiratory Effort Non-Labored 04/19/21 12:14 Blood Pressure 112/68 04/19/21 12:10 Blood Pressure Position Sitting 04/19/21 12:10 Pulse Oximetry 100 04/19/21 12:10 Oxygen Delivery Method Room Air 04/19/21 12:10 Oxygen Flow Rate 0 04/19/21 12:10 Pain Level 9 04/19/21 12:10
[2021-04-19] MEDS: diazePAM 10 MG/2 ML SYR 2.5 MG IVP ×2 (12:30→13:25)
[2021-04-19] MEDS: MAGNESIUM SULFATE 1 GM/100 ML BAG IVPB (12:31)
[2021-04-19] MEDS: Normal Saline 1,000 ML 1000 ML IV (12:31)
[2021-04-19] MEDS: Ketorolac 15 MG/ML VIAL IVP (12:44)
--- NOTE | 2021-04-19 14:27 | NUR.NOTE ---
pt was ambulatory to the BR tolerated wellNursing Note:
[2021-04-19 14:53] LABS: Bilirubin Negative (Negative); Blood Negative (Negative); Clarity Clear (Clear); Glucose Negative (Negative); Ketones 40 mg/dL (Negative); Leukocyte Esterase Small (Negative); Nitrite Negative (Negative); Urobilinogen 0.2 EU/dL (Up TO 0.2)
[2021-04-19] MEDS: diazePAM 5 MG TAB 10 MG PO (15:00)
[2021-04-19 15:09] LABS: Bacteria Rare HPF (Negative); Crystals Negative HPF (Negative); Epithelial Cells Moderate HPF (Negative); Mucus Trace (Negative); RBC 0-2 HPF (0-2); WBC 0-2 HPF (0-5)
[2021-04-19 15:10] LABS: C & S Indicated? No
== END 2021-04-19 15:00 | disposition home or self-care (01) ==
PROVIDERS: Emergency Provider Emergency Medicine; PCP Nurse Practitioner
DX: M62.830 Muscle spasm of back (principal)
CPT/HCPCS: 81025; 96361; 96365; 96375; 96376; 99284; 81003; 81015; 99283; J1885; J3360; J3475

== ENCOUNTER 2021-06-19 12:06 | Outpatient (REF) | payer BC, SELFPAY ==
[2021-06-22 14:41] LABS: Chlamydia Result Negative (Negative); GC Result Negative (Negative)
== END 2021-06-19 12:07 | disposition home or self-care (01) ==
LOC: LBN 12:06
PROVIDERS: PCP Nurse Practitioner; Visit Provider Nurse Practitioner Family
DX: Z11.3 Encounter for screening for infections with a predominantly sexual mode of transmission (principal)
CPT/HCPCS: 87491; 87591

== ENCOUNTER 2021-06-23 04:46 | Outpatient (CLI) | payer BC, SELFPAY ==
[2021-06-23 17:47] LABS: Hepatitis B Surface Ag Negative (Negative)
[2021-06-23 18:20] LABS: Hepatitis C Ab w Rflx HCV PCR Negative (Negative)
[2021-06-23 18:22] LABS: HIV-1/2 Ag & Ab Screen Negative (Negative)
[2021-06-24 12:49] LABS: Syphilis Total Ab w/Reflex Nonreactive (Nonreactive)
== END 2021-06-23 04:47 | disposition home or self-care (01) ==
LOC: LBO 04:46
PROVIDERS: PCP Nurse Practitioner; Visit Provider Nurse Practitioner Family
DX: Z11.3 Encounter for screening for infections with a predominantly sexual mode of transmission (principal); Z11.4 Encounter for screening for human immunodeficiency virus [HIV]; Z11.59 Encounter for screening for other viral diseases
CPT/HCPCS: 36415; 86803; 87340; 87389; 86780

== ENCOUNTER 2021-07-02 12:12 | Outpatient (CLI) | payer BC, SELFPAY ==
--- NOTE | 2021-07-02 11:45 | DI.RAD_ITS ---
Exam(s) XR SHOULDER RT COMPLETE 2+V EXAM: XR SHOULDER RT COMPLETE 2+V CLINICAL HISTORY: RIGHT SHOULDER PAIN. TECHNIQUE: 2D digital imaging was performed of the right shoulder. Three views were obtained. AP, Y and axillary views were obtained. COMPARISON: No exams were available for comparison FINDINGS: BONES: No acute fracture is present. No bony destructive lesion is seen. JOINTS: No dislocation present. SOFT TISSUE: Normal. IMPRESSION: Unremarkable radiographs of the right shoulder. DATA REPOSITORY: RADIATION DOSE DELIVERED:
== END 2021-07-02 12:13 | disposition home or self-care (01) ==
LOC: DIORS 12:12
PROVIDERS: PCP Nurse Practitioner; Referring Provider Nurse Practitioner; Visit Provider Student in an Organized Health Care Education/Training Program
DX: M25.511 Pain in right shoulder (principal)
CPT/HCPCS: 73030

== ENCOUNTER 2021-08-18 02:18 | Outpatient (CLI) | payer BC, SELFPAY ==
[2021-08-18 07:37] LABS: HCT 39.4 % (36.0-46.0); HGB 12.7 g/dL (11.2-15.7); MCH 29.9 pg (27.0-33.0); MCHC 32.2 % (32.0-36.0); MCV 92.7 fL (80-95); MPV 9.4 fL (8.0-11.0); Platelet Count 205 10^3/uL (130-400); RBC 4.25 10^6/uL (3.93-5.22); RDW 12.5 % (11.7-14.6); RDW-SD 42.8 fL; WBC 6.31 10^3/uL (4.4-10.8)
[2021-08-18 08:31] LABS: ALT 24 U/L (14-59); AST 18 U/L (15-37); Albumin 3.8 g/dL (3.4-5.0); Alkaline Phosphatase 25 U/L (46-116); Anion Gap 8.2 mmol/L (3-11); BUN 10 mg/dL (7-18); Bilirubin, Total 0.4 mg/dL (0.2-1.0); CO2 26.8 mmol/L (21.0-32.0); CREATININE 0.9 mg/dL (0.55-1.02); Calcium 8.7 mg/dL (8.5-10.1); Chloride 106 mmol/L (98-107); Glucose 110 mg/dL (74-106); Potassium 3.8 mmol/L (3.5-5.1); Sodium 141 mmol/L (136-145); TSH 1.06 uIU/mL (0.36-3.74); Total Protein 6.8 g/dL (6.4-8.2)
[2021-08-19 10:59] LABS: Varicella IgG Antibody Positive (See Note)
[2021-08-19 11:06] LABS: Rubella IgG Ab (UVM) Positive (See Note)
[2021-08-19 11:09] LABS: Syphilis Serology (RPR) Negative (Negative)
[2021-08-19 11:12] LABS: HIV-1/2 Ag & Ab Screen Negative (Negative)
[2021-08-19 11:32] LABS: Hepatitis B Surface Ag Negative (Negative)
[2021-08-19 12:23] LABS: Hepatitis C Ab w Rflx HCV PCR Negative (Negative)
[2021-08-20 01:40] LABS: Vitamin D 25 Total 48.3 ng/mL (30-100)
== END 2021-08-18 02:19 | disposition home or self-care (01) ==
LOC: LBO 02:18
PROVIDERS: PCP Nurse Practitioner; Visit Provider Obstetrics & Gynecology Reproductive Endocrinology
DX: Z31.41 Encounter for fertility testing (principal)
CPT/HCPCS: 36415; 80053; 82306; 85027; 86787; 86803; 86850; 86900; 86901; 87340; 87389; 84443; 86592; 86762

== ENCOUNTER 2021-08-25 16:42 | Outpatient (REF) | payer BC, SELFPAY ==
[2021-08-27 13:13] LABS: COVID-19 RT-PCR UVMMC Result Negative (Negative)
== END 2021-08-25 16:43 | disposition home or self-care (01) ==
LOC: LBN 16:42
PROVIDERS: PCP Nurse Practitioner; Visit Provider Nurse Practitioner Family
DX: Z20.822 Contact with and (suspected) exposure to COVID-19 (principal)
CPT/HCPCS: U0003

== ENCOUNTER 2021-09-04 01:42 | Outpatient (CLI) | payer BC, SELFPAY ==
--- NOTE | 2021-09-04 07:45 | DI.US_ITS ---
Exam(s) US SONOHYSTEROGRAM EXAM: US SONOHYSTEROGRAM CLINICAL HISTORY: Need u/s HSG. Not under fluroscopy, Z31.9,assess tubal patency. TECHNIQUE: Ultrasound was utilized by Mayra during the performance of a sonohysterogram, using st andard protocol. Pre and post history grams imaging was performed. COMPARISON: No exams were available for comparison FINDINGS: UTERUS: Position: Anteverted. Endometrium: 5 millimeters. Normal for patient's menstrual status. Myometrium: Unremarkable. Cervix: Unremarkable. CUL-DE-SAC: Free fluid: None prior to hysterogram. Small amount of fluid is seen in the cul-de-sac post hysterog nancy indicating at least 1 of the fallopian tubes is patent. IMPRESSION: 1. Normal-appearing uterus with endometrial stripe within normal limits. DATA REPOSITORY:
--- NOTE | 2021-09-06 13:04 | OPPNE_ITS ---
Date of service: 09/06/21 Time of Service: 13:05 Procedure Note Date of procedure: 09/04/21 Procedure: Ultrasound hysterosalpingogram Surgeon/Proceduralist/Physician: Franchesca Nunez Procedure Diagnosis: Evaluation of fallopian tube patency Procedure Indications: Pt is a 36yo female who plans to become a gestational surrogate. As part of her evaluation a examination of tubal patency is required. After discussion of a fluoroscopy guided HSG versus a saline infusion HSG the decision was made to proceed with the procedure via ultrasound. Procedure Description: After patient provided verbal and written consent she was placed in the dorsal lithotomy position and a preliminary transvaginal ultrasound was performed with the finding of normal pelvic anatomy. A bivalve speculum was placed in the vagina. The cervix was cleansed with Betadine and the anterior lip of the cervix was grasped with a single-tooth tenaculum. A HSG catheter was inserted into the uterine cavity and the balloon inflated with normal saline. The speculum was removed and a transvaginal ultrasound probe was inserted into the vagina. Under direct ult rasound observation 20 cc were instilled into the uterine cavity. The patient is to basal vagal episode during this procedure and the transvaginal ultrasound probe was removed and she was given approximately 5 minutes to recover. When she was feeling better the transvaginal probe was once again reinserted and approximately 6 cc of normal saline was measured in the posterior cul-de-sac. There remained a portion of the instilled normal saline within the uterine cavity. Instruments were removed and the patient vagina. At the completion of the procedure she was informed that there is evidence of tubal patency.
== END 2021-09-04 02:02 ==
PROVIDERS: PCP Nurse Practitioner; Visit Provider Obstetrics & Gynecology Gynecology
DX: Z31.41 Encounter for fertility testing (principal); R55 Syncope and collapse; Z31.7 Encounter for procreative management and counseling for gestational carrier
CPT/HCPCS: 58340; 76831

== ENCOUNTER 2022-03-12 11:42 | Emergency (ER) | payer BC, SELFPAY ==
[2022-03-12 11:46] VITALS: BP 117/60; PULSE 68; RESP 18; TEMP 37.1; O2SAT 100
--- NOTE | 2022-03-12 11:49 | W.ED.GENAD ---
Discharge Plan Disposition Patient Disposition: HOME Condition: Improving Discharge Details Clinical Impression: Headache Primary Care Provider: Rebekah Greco ED Provider: Anne Still Home Meds and New Rx's Prescriptions: Continued prenat.vits,sabrina,[id number] Tablet 1 tab PO DAILY levonorgestrel-ethinyl estrad [Jolessa] 0.15 mg-30 mcg (91) tablets,dose pack,3 month 1 tab PO DAILY Qty: 91 3RF Discharge Instructions Instructions: Migraine Headache (ED), General Headache (ED) Additional Instructions: Drink plenty of fluids and get plenty of rest. Alternate tylenol and motrin as needed and directed for pain. Follow-up with your primary care doctor in 1 week. Return to the emergency department with any worsening or new concerning symptoms. Discharge Data Discharge Date/Time-TO BE ENTERED AT DEPARTURE: 03/12/22 13:39 Discharge Physician: Anne Still Medical Decision Making 1150 -- 36-year-old female with a history of migraines and previously diagnosed chronic daily headaches during her a few years ago presents with headache for the past 6 days. She states this feels similar in quality to her usual headaches but lasting longer than usual. Vitals within normal limits. Patient appears uncomfortable but nontoxic. She denies thunderclap sensation, fever or confusion. No meningeal signs. No focal deficits on exam. History and presentation does not appear consistent with subarachnoid hemorrhage, CVA, meningitis. I do not indication for imaging at this time. We will place an IV, bolus IV fluids, urine test, IV Toradol, IV Decadron which patient is agreeable with in addition to her low-dose prednisone currently, IV Compazine and IV Benadryl and reassess. 1315 --patient reassessed and she feels much better and is requesting to go home. Advised to increase fluids, rest and alternate Tylenol and Motrin. Advised to follow up with the primary care doctor for re-evaluation. Usual and customary return precautions given prior to discharge. Medical Records Medical records reviewed: Yes I reviewed the patient's medical records. HPI General Mode of arrival: ambulatory. Date/Time Provider Initiated Documentation: 03/12/22 11:46. Limitations to Documentation: no limitations. Information obtained by: patient. HPI Narrative: Patient is a 36-year-old female with a history of previously diagnosed chronic daily headaches, migraines, anxiety, GERD who presents with headache for the past 6 days. Patient states she has been on medication for her IBS which she stopped 7 days ago. She states she had been on similar medication in December and did not develop a headache after stopping this medication. She states she is still on vitamins and a low-dose of prednisone at 4 mg for her IBS. She states her headache is constant, sharp, aching, dull, pressure-like and is diffuse. She states the headache is worse when she gets up and walks around. She admits to photophobia and phonophobia in addition to occasional nausea. She states she went to urgent care for headache last night and was given IM Toradol and oral Tylenol, Benadryl and Reglan with relief for 6 hours but then her headache returned at 3 AM. She took Tylenol this morning without relief. She states she was diagnosed with migraines during her a few years ago. She states she only has headaches 2-3 times a year and states this feels consistent with her usual headache but is lasting longer than usual. She denies any fever, neck pain, sore throat, runny nose or blurry vision. Related Data Home Medications Medication Instructions Recorded Confirmed prenat.vits,sabrina,[id number] 1 tab PO DAILY 06/19/21 08/19/21 levonorgestrel 0.15 mg-ethinyl 1 tab PO DAILY #91 dose pk 07/30/21 08/19/21 estradiol 30 mcg tablets,3 mos pack(91) (Jolessa) Previous Rx's Medication Instructions Recorded levonorgestrel 0.15 mg-ethinyl 1 tab PO DAILY #91 dose pk 07/30/21 estradiol 30 mcg tablets,3 mos pack(91) (Jolessa) Allergies Allergy/AdvReac Type Severity Reaction Status Date / Time hydrocodone AdvReac Unknown Vomiting Verified 09/15/21 09:34 hydrocodone bitartrate AdvReac Unknown Vomiting Verified 09/15/21 09:34 [From Vicodin] General Stated Complaint: Headache SATNAM: 3 Review of Systems All systems reviewed & are unremarkable except as noted in HPI and below Constitutional Constitutional: Denies chills, Denies excessive sweating, Denies fatigue, Denies fever(s), Reports headache(s), Denies weakness and Denies weight loss Eyes Eyes: Reports system reviewed and no additional complaints, except as documented and Denies blurry vision ENT Ears, Nose, Mouth, and Throat: Denies vertigo, Denies dizziness, Denies otalgia, Reports headache(s), Denies nasal congestion, Denies sore throat and Denies throat swelling Cardiovascular Cardiovascular: Denies chest pain, Denies syncope, Denies rapid heart rate and Denies dyspnea Respiratory Respiratory: Denies chest congestion, Denies cough, Denies pain on inspiration and Denies dyspnea Gastrointestinal Gastrointestinal: Denies abdominal pain, Denies diarrhea and Denies vomiting Genitourinary Genitourinary: Denies hematuria, Denies dysuria and Denies flank pain Musculoskeletal Musculoskeletal: Denies back pain and Denies joint swelling Integumentary/Breasts Skin/Breast: Denies lesions and Denies rash Neurologic Neurologic: Denies behavioral changes, Denies confusion, Denies vertigo, Denies dizziness, Denies syncope, Reports headache(s), Denies localized weakness and Denies weakness Psychiatric Psychiatric: Denies behavioral changes, Denies confusion and Denies depression Endocrine Endocrine: Denies excessive sweating and Denies fatigue Hematologic/Lymphatic Hematologic/Lymphatic: Denies easy bruising and Denies lymphadenopathy Allergic/Immunologic Allergic/Immunologic: Denies throat swelling PFSH All Active Problems (Updated 03/12/22 @ 13:32 by Anne Still DO) Headache (Acute) COVID (Acute ~12/30/21) Routine medical exam (Acute) Instability of both shoulder joints (Acute) Patient desires (Acute) Labral tear of shoulder (Acute) Suspected Scapular dyskinesis (Acute) Spasm of thoracic back muscle (Acute) Injury of right elbow region (Acute 08/19/20) Encounter for procreative management and counseling for person acting as gestational surrogate (Acute) Contraception (Acute) Umbilical hernia (Acute) Surgical consult [facility] in Surgery 08/18/2015: Small hernia (umbilical vs. low epigastric), recommend surgery at pt convenience Atopic dermatitis (Chronic) Allergic rhinitis (Chronic) Medical History (Updated 03/12/22 @ 13:32 by Anne Still DO) Anxiety Chronic daily headache Onset 06/29/18. assoc with hyperemesis. MRA/MRI of brain nl. Occipital nerve block 06/29/18 with temporary improvement. 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 Patient remains nauseated but without emesis. Migraine Surgical History Biopsy of breast (12/22/16) Benign. [facility]. Colposcopy Cervix With Loop Electrode Conization Foot Arthrodesis Knee Surgery Open Distal Gastrectomy and Billroth 1 (07/08/17) For gastroduodenal mass. [facility]. Family History (Updated 09/15/21 @ 09:50 by Akila White, RN) Paternal Grandfather Neoplasm Melanoma Colon [place] dx'ed 70s Mother Neoplasm Melanoma Depression Maternal Grandfather Colon cancer Pancreatic cancer Maternal Grandmother Depression Social History (Updated 09/15/21 @ 09:52 by Akila White, ANIKA) Smoking/Tobacco Use Status: Never Second Hand Exposure: No Smoking risk assessment performed?: Yes Alcohol Intake: current Alcohol Intake frequency: a few times a week Drug use: Never Substance use type: does not use Adopted: No Caregiver/Support person: No Foster care: No Household members: spouse, children and other Details: Javed Doe, Echo Housing: house Number of Children: 2 Communication Needs: Corrective Lenses Education Level: master's degree Do you need help understanding health information?: Never 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 [employer] Pets and animals: Yes (Chickens and ducks) Pets and animals: farm animals Sexually active: Yes Do you think of yourself as: straight/heterosexual Current gender identity: female What is your relationship status?: How often do you talk on the phone with friends or family?: three or more times per week How often do you get together with friends or relatives?: once per week Do you belong to any clubs or organized social groups?: no Panel score (0-1 are the most socially isolated patients): 2 What type of physical activity do you participate in: walking and running Duration: 15-30 minutes/day Frequency: 3-4 times per week Elizabeth/Confucianist: Congregational Special elizabeth needs: No Seatbelt use: always Helmet use: Yes Helmet use: always Drive intox or ride w/intox 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 She has a 3yo daughter Vane. 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 No smoking, eTOH, or illicit drug use. History History 2 Para 1 Hx # Term Pregnancies 1 Multiple births 0 Hx # Pregnancies 0 Ectopic pregnancies 0 AB induced 0 Hx Number of Living Children 1 AB spontaneous 0 Past Pregnancies Del. Date GA/Weeks # Outcome Route Wgt Sex Labor Lgth Anesthesia Location Prov Complic 12/24/18 39 No Successful vaginal 3458.642 g Male Maria Antonia Wangt Delivery Date: 12/24/18 Last Updated by: Franchesca Nunez M.D. Rodney Exam Const General: cooperative and uncomfortable Orientation: alert, awake and oriented x3 HENMT Head: normal to inspection Ears: hearing grossly normal bilaterally, external ears normal and TM's normal bilaterally General nose exam: external nose normal Face and sinus: normal facial exam Mouth: oral mucosae normal Teeth and gingiva: dentition normal Throat: posterior oropharynx normal Eyes General: appearance normal, both eyes and all related structures Eyelids: eyelids normal Pupils: PERRL EOM: EOM intact bilaterally Neck Neck: normal visual inspection Lymphatic: no lymphadenopathy noted Chest Chest: normal inspection of the chest Resp Effort & Inspection: normal respiratory effort and able to speak in complete sentences Auscultation: clear to auscultation bilaterally Cardio Rate: regular rate Rhythm: regular rhythm GI Inspection: normal to inspection Palpation: soft, not firm, no guarding, no hepatosplenomegaly, no masses and nontender Auscultation: normal bowel sounds Back/Spine/Pelvis Back: no CVA tenderness Skin General skin exam: no rashes or lesions noted Neuro General: patient alert, patient awake, patient oriented x3, moves all extremities and no meningeal signs Cranial Nerves: CN's II-XI intact bilaterally Cognition: normal cognition Speech: speech normal Gait: normal gait Motor: muscle tone normal throughout Sensory Exam: no sensory deficits noted Extrem General: normal to inspection, full ROM and capillary refill normal Psych Appearance: grossly normal Mental Status: mental status grossly normal Speech and Movement: speech and movement normal Affect: normal affect Thought Process: normal
[2022-03-12] MEDS: Normal Saline 1,000 ML 1000 ML IV (12:30)
[2022-03-12] MEDS: diphenhydrAMINE 50 MG/ML VIAL 25 MG IVP (12:38)
[2022-03-12] MEDS: Dexamethasone 10 MG/ML VIAL IVP (12:38)
[2022-03-12] MEDS: Prochlorperazine 10 MG/2 ML VIAL IVP (12:39)
[2022-03-12] MEDS: Ketorolac 30 MG/ML VIAL IVP (12:39)
[2022-03-12 13:35] VITALS: BP 105/57; PULSE 49; RESP 16; TEMP 36.7; O2SAT 100
== END 2022-03-12 13:39 | disposition home or self-care (01) ==
PROVIDERS: Emergency Provider Physician Assistant; PCP Nurse Practitioner
DX: R51.9 Headache, unspecified (principal)
CPT/HCPCS: 36415; 81025; 96361; 96374; 96375; 99284; 99283; J0780; J1100; J1200; J1885

== ENCOUNTER 2022-05-15 17:39 | Emergency (ER) | payer BC, SELFPAY ==
[2022-05-15 17:44] VITALS: BP 87/56; PULSE 63; RESP 18; TEMP 36.7; O2SAT 18
--- NOTE | 2022-05-15 18:00 | RT.EKG_ITS ---
APPROVED REPORT Exam: Resting ECG Reason for Exam: syncope Patient Location: E HR:61 bpm ECG Measurements Heart Rate 61 AXIS WY 140 P 9 QRSd 85 QRS 81 QT 404 T 58 QTc 409 Conclusion Sinus rhythm...normal P axis, V-rate 60- 99 Normal Electrocardiogram
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
[2022-05-15] MEDS: Ketorolac 15 MG/ML VIAL IVP (18:28)
[2022-05-15 18:35] LABS: Abs Immature Grans 0.01 10^3/uL (0.0-0.06); Absolute Basophil Count 0.04 10^3/uL (0.0-0.2); Absolute Eosinophil Count 0.13 10^3/uL (0.0-0.7); Absolute Lymphocyte Count 3.66 10^3/uL (1.2-3.4); Absolute Monocyte Count 0.49 10^3/uL (0.1-0.8); Absolute Neutrophil Count 3.38 10^3/uL (1.2-6.7); Basophils % 0.5; Eosinophils % 1.7; HCT 38.2 % (36.0-46.0); HGB 12.9 g/dL (11.2-15.7); Immature Grans % 0.1; Lymphocytes % 47.5; MCH 30.6 pg (27.0-33.0); MCHC 33.8 % (32.0-36.0); MCV 91 fL (80-95); Monocytes % 6.4; Neutrophils % 43.8; Platelet Count 212 10^3/uL (130-400); RBC 4.22 10^6/uL (3.93-5.22); RDW 11.7 % (11.7-14.6); RDW-SD 38.2 fL; WBC 7.71 10^3/uL (4.4-10.8)
[2022-05-15 18:52] LABS: ALT 31 U/L (14-59); AST 29 U/L (15-37); Albumin 4.2 g/dL (3.4-5.0); Alkaline Phosphatase 58 U/L (46-116); Anion Gap 9.7 mmol/L (3-11); BUN 11 mg/dL (7-18); Bilirubin, Total 0.2 mg/dL (0.2-1.0); CO2 25.3 mmol/L (21.0-32.0); CREATININE 0.9 mg/dL (0.55-1.02); Chloride 104 mmol/L (98-107); Glucose 83 mg/dL (74-106); Potassium 3.7 mmol/L (3.5-5.1); Sodium 139 mmol/L (136-145); Total Protein 7.2 g/dL (6.4-8.2)
[2022-05-15 19:27] VITALS: BP 98/47; PULSE 68; RESP 16; O2SAT 98
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
== END 2022-05-15 20:14 | disposition home or self-care (01) ==
PROVIDERS: Emergency Provider Emergency Medicine; PCP Nurse Practitioner
DX: R55 Syncope and collapse (principal); S50.11XA Contusion of right forearm, initial encounter; W22.8XXA Striking against or struck by other objects, initial encounter
CPT/HCPCS: 80053; 81025; 93005; 96374; 99284; 73090; 85025; 93010; J1885

== ENCOUNTER 2022-08-09 16:33 | Outpatient (REF) | payer BC, SELFPAY ==
--- NOTE | 2022-08-09 15:45 | PAPFT_PTH ---
PATIENT: Jerome Robledo LOC: [facility] U#:[id number] AGE/SX: 37/F ROOM: RE08/09/[address]: aMlu Raymundo NP : 1985 BED: DIS: 08/09/2022 SPEC #: [id number] RECD: 08/09/22 18:02 STATUS: RICH VU #: [id number] DANNI: 08/09/22 15:[address]: Malu Raymundo NP DEPT: [facility] Cytology RECD BY: Cindy Avendano ENTERED: 08/09/22 18:03 SP TYPE: PAPFT OTHR DR: Rebekah Greco APRN Tissues: 1 - CX/ENDOCX FOR PAP SMEARS Procedures: PAP THIN PREP/UVM Screening HPV DNA PROBE Comments: [id number]
== END 2022-08-09 16:34 | disposition home or self-care (01) ==
LOC: LBN 16:33
PROVIDERS: PCP Nurse Practitioner; Visit Provider Nurse Practitioner Women's Health
DX: Z12.4 Encounter for screening for malignant neoplasm of cervix (principal); R87.610 Atypical squamous cells of undetermined significance on cytologic smear of cervix (ASC-US); Z11.51 Encounter for screening for human papillomavirus (HPV); Z87.42 Personal history of other diseases of the female genital tract
CPT/HCPCS: 88142; 87624

== ENCOUNTER → 2022-08-27 11:56 | Outpatient (CLI) | payer OTHER, BC, SELFPAY ==
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
== END ==
PROVIDERS: PCP Nurse Practitioner; Visit Provider Physician Assistant Medical
DX: M79.631 Pain in right forearm (principal)
CPT/HCPCS: 73090

== ENCOUNTER 2022-09-25 15:03 | Outpatient (REF) | payer BC, SELFPAY | END 2022-09-25 15:04 | disposition home or self-care (01) | LOC: LBN 15:03 | PROVIDERS: PCP Nurse Practitioner; Visit Provider Physician Assistant Medical | DX: J02.9 Acute pharyngitis, unspecified (principal) | CPT/HCPCS: 87081 ==

== ENCOUNTER 2022-10-01 16:51 | Outpatient (REF) | payer BC, SELFPAY ==
[2022-10-03 01:42] LABS: Influenza A RNA Result Negative (Negative); Influenza B RNA Result Negative (Negative); RSV RNA Result Negative (Negative)
[2022-10-03 01:46] LABS: COVID-19 RT-PCR UVMMC Result Negative (Negative)
== END 2022-10-01 16:52 | disposition home or self-care (01) ==
LOC: LBN 16:51
PROVIDERS: PCP Nurse Practitioner; Visit Provider Family Medicine
DX: J18.9 Pneumonia, unspecified organism (principal); J11.1 Influenza due to unidentified influenza virus with other respiratory manifestations; Z20.822 Contact with and (suspected) exposure to COVID-19
CPT/HCPCS: 87631; U0003

== ENCOUNTER 2022-10-04 12:42 | Emergency (ER) | payer BC, SELFPAY ==
[2022-10-04] VITALS (53 sets, daily range): BP systolic 68–100; BP diastolic 33–60; PULSE 52–118; RESP 10–21; TEMP 36.9–37.6; O2SAT 92–99
--- NOTE | 2022-10-04 12:45 | RT.EKG_ITS ---
APPROVED REPORT Exam: Resting ECG Reason for Exam: dizziness Patient Location: E HR:78 bpm ECG Measurements Heart Rate 78 AXIS MN 138 P 32 QRSd 84 QRS 84 QT 366 T 58 QTc 418 Conclusion Sinus rhythm...normal P axis, V-rate 60- 99
--- NOTE | 2022-10-04 13:53 | W.ED.GENAD ---
Discharge Plan Disposition Patient Disposition: Home Condition: Stable Discharge Details Clinical Impression: Influenza A Primary Care Provider: Rebekah Greco ED Provider: Aristides Bales Home Meds and New Rx's Prescriptions: Continued prenat.vits,sabrina,dza-vzta-lccoh Tablet 1 tab PO DAILY fexofenadine [Violetta Allergy] 60 mg tablet 60 mg PO BID Multivitamin 1 tab PO DAILY amoxicillin-pot clavulanate 875-125 mg tablet 1 tab PO BID Label Comments: TAKE ONE TABLET BY MOUTH TWICE A DAY Discharge Instructions Instructions: Influenza (ED) Additional Instructions: Work-up in the ER reveals that you are flu a positive. The remainder of the work-up does not reveal any obvious emergent process. Given the duration of your symptoms you are not a candidate for antivirals. Unfortunately this is a viral, needs to run its course, and I would recommend resting, adequate oral intake to avoid dehydration, and aggressive [id number] medications for symptomatic control. Please continue taking your Augmentin that you have already started. Watch for new or worsening symptoms and return to the ER for any concerns. Lastly, I would like you to contact your primary care provider tomorrow to discuss your ER visit, ongoing symptoms, and need for outpatient reevaluation. Discharge Data Discharge Date/Time-TO BE ENTERED AT DEPARTURE: 10/04/22 19:00 Medical Decision Making <STARR Gonzáles - Last Filed: 10/24/22 18:54> Patient is a pleasant 37-year-old female, accompanied by significant other, with chief complaint of cough. She reports this been ongoing for about 2 weeks. Initially diagnosed with 1. States that the cough has now been making is that she is having difficulty performing her ADLs as well as interrupting her sleep. She has been trying Tessalon Perles without success. States that she has been feeling lightheaded and dizzy at home today. Has been feeling much more weak and having difficulty ambulating secondary to this weakness. States that she has mild shortness of breath when not coughing. Denies chest pain. States that she does have some sore throat. Endorses congestion. Denies any nausea, vomiting or diarrhea. Just recently finished her menses. On exam, patient appears uncomfortable. She is noted to be euthermic but feels hot on exam. She is tachycardic and slightly hypotensive. She is young and thin so I am not surprised by this blood pressure. However, she does appear slightly dehydrated I do feel that replenishing her volume status would be appropriate. In review of the patient's visit, she has been hypotensive in the past. Her lungs are clear. Assessment tachycardia at 95, normal cardiac exam. Abdomen is benign. Posterior oropharynx is erythematous. EKG obtained reviewed by Dr. Mcfadden. There is slight ST depressions in lateral and inferior to her. She denies endorsing any chest pain currently. Do not see any history of cardiac disease. Will obtain troponin. If this is elevated, I assume that this would be viral in nature rather than true ACS. Patient receiving Tylenol and ibuprofen, IV fluids. At the end of my shift, care transition to Danis Bales with repeat troponin and D-dimer pending. CBC and CMP otherwise without significant abnormality. Chest x-ray pending. <STARR Gomes - Last Filed: 10/04/22 18:43> Patient is a pleasant 37-year-old female, accompanied by significant other, with chief complaint of cough. She reports this been ongoing for about 2 weeks. Initially diagnosed with 1. States that the cough has now been making is that she is having difficulty performing her ADLs as well as interrupting her sleep. She has been trying Tessalon Perles without success. States that she has been feeling lightheaded and dizzy at home today. Has been feeling much more weak and having difficulty ambulating secondary to this weakness. States that she has mild shortness of breath when not coughing. Denies chest pain. States that she does have some sore throat. Endorses congestion. Denies any nausea, vomiting or diarrhea. Just recently finished her menses. On exam, patient appears uncomfortable. She is noted to be euthermic but feels hot on exam. She is tachycardic and slightly hypotensive. She is young and thin so I am not surprised by this blood pressure. However, she does appear slightly dehydrated I do feel that replenishing her volume status would be appropriate. In review of the patient's visit, she has been hypotensive in the past. Her lungs are clear. Assessment tachycardia at 95, normal cardiac exam. Abdomen is benign. Posterior oropharynx is erythematous. EKG obtained reviewed by Dr. Mcfadden. There is slight ST depressions in lateral and inferior to her. She denies endorsing any chest pain currently. Do not see any history of cardiac disease. Will obtain troponin. If this is elevated, I assume that this would be viral in nature rather than true ACS. Patient receiving Tylenol and ibuprofen, IV fluids. At the end of my shift, care transition to Danis Bales with repeat troponin and D-dimer pending. CBC and CMP otherwise without significant abnormality. Chest x-ray pending. 1530: Aristides Bales PA-C I assumed care of this 37-year-old female from my colleague STARR Potts, please see her initial HPI and examination patient has received IV fluids, Tylenol and ibuprofen. Awaiting delta troponin and EKG. D-dimer pending. Chest x-ray pending. Chest x-ray clear D-dimer is normal at 316, will not pursue CTA of the chest. Patient is awake, alert, reports in general feels better than her initial presentation but does continue to have a mild headache. No meningeal signs. She is able to ambulate steadily. Blood pressure remains low, 100s over 50s however upon reviewing her previous visits this appears to be near her baseline. No evidence of symptomatic hypotension. Flu a positive. Symptoms have been going on at least 1 week, likely not a candidate for Tamiflu. Delta troponin is less than 50. Repeat EKG performed at 1758, reviewed with Dr. Coelho, sinus rhythm, ventricular rate of 61, no STEMI. No dynamic changes when compared to previous EKG. Discussed work-up with patient. She will continue her Augmentin as previously prescribed diagnosed with pneumonia, again chest x-ray is clear today. Symptoms are likely secondary to influenza. We discussed conservative measures. Standard discharge and return precautions were provided. Patient understands, is agreeable to this plan, and has no additional questions or concerns upon discharge. This documentation was generated using [employer] system, please disregard any oddities of phrase or misspellings. Medical Records Medical records reviewed: Yes I reviewed the patient's medical records. Imaging Data Radiologic Study: Attestation: I personally reviewed and interpreted this imaging study as follows: Imaging: X-Ray Radiologist's impression: Exam(s) XR PORTABLE CHEST AP EXAM: XR PORTABLE CHEST AP CLINICAL HISTORY: SOb, cough TECHNIQUE: 2D digital imaging was performed. COMPARISON: CR XR PORTABLE CHEST AP from 06/23/2018 FINDINGS: Multiple overlying monitor leads. LUNGS: Clear. No pleural abnormality seen. HEART: Normal size. AORTA: Normal diameter. BONES: Unremarkable for age. Soft tissues: Unremarkable. IMPRESSION: No acute findings. Lab Data Lab results reviewed: Yes I reviewed the patient's lab results. Labs: Laboratory Tests Range/Units 10/04/22 10/04/22 10/04/22 13:10 13:10 13:10 WBC (4.4-10.8) 10^3/uL 7.88 RBC (3.93-5.22) 10^6/uL 4.30 Hgb (11.2-15.7) g/dL 12.8 Hct (36.0-46.0) % 37.3 MCV (80-95) fL 87 MCH (27.0-33.0) pg 29.8 MCHC (32.0-36.0) % 34.3 RDW (11.7-14.6) % 11.9 Plt Count (130-400) 10^3/uL 189 MPV (8.0-11.0) fL 9.3 Immature Gran % 0.5 Neutrophils % 79.2 Lymphocytes % 9.1 Monocytes % 10.7 Eosinophils % 0.1 Basophils % 0.4 Nucleated RBC % (0.0-0.3) % 0.0 Absolute Neutrophils (1.2-6.7) 10^3/uL 6.24 Absolute Lymphocytes (1.2-3.4) 10^3/uL 0.72 L Absolute Monocytes (0.1-0.8) 10^3/uL 0.84 H Absolute Eosinophils (0.0-0.7) 10^3/uL 0.01 Absolute Basophils (0.0-0.2) 10^3/uL 0.03 D-Dimer (<500) ng/mlFEU Sodium (136-145) mmol/L 136 Potassium (3.5-5.1) mmol/L 3.6 Chloride (98-107) mmol/L 101 Carbon Dioxide (21.0-32.0) mmol/L 27.9 Anion Gap (3-11) mmol/L 7.1 BUN (7-18) mg/dL 7 Creatinine (0.55-1.02) mg/dL 0.8 Est GFR (CKD-EPI 2020) (mL/min/1.73m2) 96.66 Glucose (74-106) mg/dL 92 Calcium (8.5-10.1) mg/dL 9.0 Magnesium (1.8-2.4) mg/dL 1.8 Total Bilirubin (0.2-1.0) mg/dL 0.2 AST (15-37) U/L 37 ALT (14-59) U/L 34 Alkaline Phosphatase (46-116) U/L 72 Troponin I (<or=60) ng/L 53 Cancelled Total Protein (6.4-8.2) g/dL 7.0 Albumin (3.4-5.0) g/dL 3.7 Range/Units 10/04/22 10/04/22 15:10 18:04 WBC (4.4-10.8) 10^3/uL RBC (3.93-5.22) 10^6/uL Hgb (11.2-15.7) g/dL Hct (36.0-46.0) % MCV (80-95) fL MCH (27.0-33.0) pg MCHC (32.0-36.0) % RDW (11.7-14.6) % Plt Count (130-400) 10^3/uL MPV (8.0-11.0) fL Immature Gran % Neutrophils % Lymphocytes % Monocytes % Eosinophils % Basophils % Nucleated RBC % (0.0-0.3) % Absolute Neutrophils (1.2-6.7) 10^3/uL Absolute Lymphocytes (1.2-3.4) 10^3/uL Absolute Monocytes (0.1-0.8) 10^3/uL Absolute Eosinophils (0.0-0.7) 10^3/uL Absolute Basophils (0.0-0.2) 10^3/uL D-Dimer (<500) ng/mlFEU 316 Sodium (136-145) mmol/L Potassium (3.5-5.1) mmol/L Chloride (98-107) mmol/L Carbon Dioxide (21.0-32.0) mmol/L Anion Gap (3-11) mmol/L BUN (7-18) mg/dL Creatinine (0.55-1.02) mg/dL Est GFR (CKD-EPI 2020) (mL/min/1.73m2) Glucose (74-106) mg/dL Calcium (8.5-10.1) mg/dL Magnesium (1.8-2.4) mg/dL Total Bilirubin (0.2-1.0) mg/dL AST (15-37) U/L ALT (14-59) U/L Alkaline Phosphatase (46-116) U/L Troponin I (<or=60) ng/L < 50 Total Protein (6.4-8.2) g/dL Albumin (3.4-5.0) g/dL HPI <STARR Gonzáles - Last Filed: 10/24/22 18:54> General Date/Time Provider Initiated Documentation: 10/04/22 13:52. Limitations to Documentation: no limitations. Information obtained by: patient, family, RN notes reviewed and old records reviewed. History of Present Illness 37 year old F presents to the emergency department with the chief complaint of cough, malaise, weakness, described as severe, Quality is described as aching (general body aches), Patient started experiencing this week(s) and it has been constant. No relieving factors improve symptom(s), No exacerbating factors reported . Patient notes cough, diaphoresis, fever/chills, loss of appetite, malaise and shortness of breath; denies nausea/vomiting and rash. Patient did receive the following treatments prior to arrival, none Related Data Home Medications Medication Instructions Recorded Confirmed prenat.vits,sabrina,uko-vwza-jyooa 1 tab PO DAILY 06/19/21 10/04/22 Multivitamin 1 tab PO DAILY 05/15/22 10/04/22 fexofenadine 60 mg tablet (Violetta 60 mg PO BID 08/09/22 Allergy) amoxicillin 875 mg-potassium 1 tab PO BID 10/04/22 10/04/22 clavulanate 125 mg tablet Allergies Allergy/AdvReac Type Severity Reaction Status Date / Time hydrocodone AdvReac Unknown Vomiting Verified 10/04/22 12:47 hydrocodone bitartrate AdvReac Unknown Vomiting Verified 10/04/22 12:47 [From Vicodin] General Stated Complaint: GenMedical SATNAM: 3 Review of Systems <STARR Gonzáles - Last Filed: 10/24/22 18:54> Constitutional Constitutional: Reports as per HPI and Denies headache(s) Eyes Eyes: Reports as per HPI, Denies eye discharge and Denies irritation ENT Ears, Nose, Mouth, and Throat: Reports as per HPI and Denies headache(s) Cardiovascular Cardiovascular: Reports as per HPI Respiratory Respiratory: Reports as per HPI Gastrointestinal Gastrointestinal: Reports as per HPI, Denies abdominal pain, Denies nausea and Denies vomiting Integumentary/Breasts Skin/Breast: Reports as per HPI and Denies rash Neurologic Neurologic: Reports as per HPI and Denies headache(s) PFSH <STARR Gonzáles - Last Filed: 10/24/22 18:54> All Active Problems (Updated 10/04/22 @ 18:41 by STARR Gomes) Influenza A (Acute) Routine medical exam (Acute) Instability of both shoulder joints (Acute) Patient desires (Acute) Labral tear of shoulder (Acute) Suspected Scapular dyskinesis (Acute) Spasm of thoracic back muscle (Acute) Injury of right elbow region (Acute 08/19/20) Encounter for procreative management and counseling for person acting as gestational surrogate (Acute) Umbilical hernia (Acute) Surgical consult [facility] in Surgery 08/18/2015: Small hernia (umbilical vs. low epigastric), recommend surgery at pt convenience Atopic dermatitis (Chronic) Allergic rhinitis (Chronic) Medical History Anxiety Chronic daily headache Onset 06/29/18. assoc with hyperemesis. MRA/MRI of brain nl. Occipital nerve block 06/29/18 with temporary improvement. 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 Patient remains nauseated but without emesis. Migraine Surgical History Biopsy of breast (12/22/16) Benign. [facility]. Colposcopy Cervix With Loop Electrode Conization Foot Arthrodesis Knee Surgery Open Distal Gastrectomy and [place] 1 (07/08/17) For gastroduodenal mass. [facility]. Family History Paternal Grandfather Neoplasm Melanoma Colon CA dx'ed 70s Mother Neoplasm Melanoma Depression Maternal Grandfather Colon cancer Pancreatic cancer Maternal Grandmother Depression Social History Smoking/Tobacco Use Status: Never Second Hand Exposure: No Smoking risk assessment performed?: Yes Alcohol Intake: current Alcohol Intake frequency: a few times a week Drug use: Never Substance use type: does not use Adopted: No Caregiver/Support person: No Foster care: No Household members: spouse, children and other Details: Caitlin-Martin, Nigel-Vane, S-Rodney Housing: house Number of Children: 2 Communication Needs: Corrective Lenses Education Level: master's degree Do you need help understanding health information?: Never 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 [employer] Pets and animals: Yes (Chickens and ducks) Pets and animals: farm animals Sexually active: Yes Do you think of yourself as: straight/heterosexual Current gender identity: female What is your relationship status?: How often do you talk on the phone with friends or family?: three or more times per week How often do you get together with friends or relatives?: once per week Do you belong to any clubs or organized social groups?: no Panel score (0-1 are the most socially isolated patients): 2 What type of physical activity do you participate in: walking and running Duration: 15-30 minutes/day Frequency: 3-4 times per week Elizabeth/Temple: Rastafarian Special elizabeth needs: No Seatbelt use: always Helmet use: Yes Helmet use: always Drive intox or ride w/intox wrecker driver: No Do you feel safe at home: Yes Do you feel safe in your relationship?: Yes Additional Social history: She is . She has a 3yo daughter Vane. 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 No smoking, eTOH, or illicit drug use. Female Reproductive History Menstrual control method: none and condoms History History 2 Para 2 Hx # Term Pregnancies 2 Multiple births 0 Hx # Pregnancies 0 Ectopic pregnancies 0 AB induced 0 Hx Number of Living Children 2 AB spontaneous 0 Past Pregnancies Del. Date GA/Weeks # Preg Succ Route Wgt Sex Labor Lgth Anesthesia Location [facility] 12/24/18 39 No vaginal 3458.642 g Male Maria Antonia Nieves Delivery Date: 12/24/18 Last Updated by: Franchesca Nunez M.D. Rodney Exam <STARR Gonzáles - Last Filed: 10/24/22 18:54> Const General: cooperative, not healthy appearing, comfortable, no acute distress, well developed, well groomed and ill appearing (appears fatigued and dry) Nutritional Appearance: average body habitus and well nourished Orientation: alert and awake [facility] Head: normal to inspection, normocephalic and atraumatic Ears: hearing grossly normal bilaterally, external ears normal and TM's normal bilaterally General nose exam: external nose normal and nares normal Face and sinus: normal facial exam, sinuses nontender and face symmetric Mouth: oral mucosae normal, lip normal, tongue normal, oropharynx normal and mucous membranes dry Teeth and gingiva: dentition normal Throat: posterior oropharynx abnormal (erythematous), tonsils normal and uvula midline Eyes General: appearance normal, both eyes and all related structures Neck Neck: normal visual inspection, full ROM, no lymphadenopathy and no meningeal signs Resp Effort & Inspection: normal respiratory effort, able to speak in complete sentences and no respiratory distress Auscultation: clear to auscultation bilaterally, no rales, no rhonchi and no wheezes Cardio Rate: tachycardic Rhythm: regular rhythm Heart Sounds: S1 normal and S2 normal Skin General skin exam: no rashes or lesions noted Neuro General: patient alert and patient awake Cognition: normal cognition Speech: speech normal Gait: normal gait Psych Appearance: grossly normal and well kempt Mental Status: mental status grossly normal Speech and Movement: speech and movement normal Course <STARR Gonzáles - Last Filed: 10/24/22 18:54> Vital Signs Vital signs: Vital Signs Temperature 36.9 C 10/04/22 12:45 Pulse 118 H 10/04/22 12:45 Respiratory Rate 18 10/04/22 12:45 Blood Pressure 100/58 L 10/04/22 12:45 Pulse Oximetry 99 10/04/22 12:45 Temperature 36.9 C 10/04/22 12:45 Temperature Source Temporal Artery Scan 10/04/22 12:45 Pulse 118 H 10/04/22 12:45 Respiratory Rate 18 10/04/22 12:50 Respiratory Effort Non-Labored 10/04/22 12:50 Respiratory Depth Normal 10/04/22 12:50 Respiratory Pattern Normal 10/04/22 12:50 Blood Pressure 100/58 L 10/04/22 12:45 Blood Pressure Position Sitting 10/04/22 12:45 Pulse Oximetry 99 10/04/22 12:45 Oxygen Delivery Method Room Air 10/04/22 12:45 Oxygen Flow Rate 0 10/04/22 12:45 Sign Out <STARR Gonzáles - Last Filed: 10/24/22 18:54> Sign Out Data: Sign Out Comment: Care transition to Danis Bales PA-C with labs ending. Patient has had cough and flulike illness for the past 2 weeks. Currently on Augmentin for pneumonia. Impression noted on ECG. Troponin and labs pending. Patient not endorsing any chest pain Last updated by Fawn Potts PA at 10/04/22 16:00 PAWSS <STARR Gonzáles - Last Filed: 10/24/22 18:54> Have you Been Recently Intoxicated or Drunk Within the Last 30 days?: No Have you Ever Experienced Previous Episodes of Alcohol Withdrawal?: No Have you ever Experienced Withdrawal Seizures?: No Have you ever Experienced Delirium Tremens(DT)s?: No Have you ever undergone Alcohol Rehabilitation Treatment (i.e, inpt ot outpatient treatment programs)?: No Have you ever Experienced Blackouts?: No Have you ever Combined Alcohol with other Downers within the last 90 days?: No Have you ever Combined Alcohol with any other Substance of Abuse during the last 90 days?: No Positive Blood Alcohol level on Presentation? [PCS.BAL]: No Evidence of Increased Autonomic Activity (i.e. HR>120, tremor, sweating, agitation, nausea)?: No Result: 0 <STARR Gomes - Last Filed: 10/04/22 18:43> Result: 0
--- NOTE | 2022-10-04 14:45 | DI.RAD_ITS ---
Exam(s) XR PORTABLE CHEST AP EXAM: XR PORTABLE CHEST AP CLINICAL HISTORY: SOb, cough TECHNIQUE: 2D digital imaging was performed. COMPARISON: CR XR PORTABLE CHEST AP from 06/23/2018 FINDINGS: Multiple overlying monitor leads. LUNGS: Clear. No pleural abnormality seen. HEART: Normal size. AORTA: Normal diameter. BONES: Unremarkable for age. Soft tissues: Unremarkable. IMPRESSION: No acute findings. DATA REPOSITORY: RADIATION DOSE DELIVERED:
[2022-10-04 15:13] LABS: Abs Immature Grans 0.04 10^3/uL (0.0-0.06); Absolute Basophil Count 0.03 10^3/uL (0.0-0.2); Absolute Eosinophil Count 0.01 10^3/uL (0.0-0.7); Absolute Lymphocyte Count 0.72 10^3/uL (1.2-3.4); Absolute Monocyte Count 0.84 10^3/uL (0.1-0.8); Absolute Neutrophil Count 6.24 10^3/uL (1.2-6.7); Basophils % 0.4; Eosinophils % 0.1; HCT 37.3 % (36.0-46.0); HGB 12.8 g/dL (11.2-15.7); Immature Grans % 0.5; Lymphocytes % 9.1; MCH 29.8 pg (27.0-33.0); MCHC 34.3 % (32.0-36.0); MCV 87 fL (80-95); MPV 9.3 fL (8.0-11.0); Monocytes % 10.7; Neutrophils % 79.2; Platelet Count 189 10^3/uL (130-400); RDW 11.9 % (11.7-14.6); RDW-SD 37.8 fL; WBC 7.88 10^3/uL (4.4-10.8)
[2022-10-04] MEDS: Ibuprofen 600 MG TAB PO (15:17)
[2022-10-04] MEDS: Lactated Ringers 1,000 ML 1000 ML IV (15:25)
[2022-10-04] MEDS: Acetaminophen 500 MG TAB 1000 MG PO (15:25)
[2022-10-04 15:31] LABS: ALT 34 U/L (14-59); AST 37 U/L (15-37); Albumin 3.7 g/dL (3.4-5.0); Alkaline Phosphatase 72 U/L (46-116); Anion Gap 7.1 mmol/L (3-11); BUN 7 mg/dL (7-18); Bilirubin, Total 0.2 mg/dL (0.2-1.0); CO2 27.9 mmol/L (21.0-32.0); CREATININE 0.8 mg/dL (0.55-1.02); Chloride 101 mmol/L (98-107); Estimated GFR 96.66 (mL/min/1.73m2); Glucose 92 mg/dL (74-106); Magnesium 1.8 mg/dL (1.8-2.4); Potassium 3.6 mmol/L (3.5-5.1); Sodium 136 mmol/L (136-145); Troponin I 53 ng/L (<or=60)
[2022-10-04 16:10] LABS: D-Dimer 316 ng/mlFEU (<500)
--- NOTE | 2022-10-04 17:15 | RT.EKG_ITS ---
APPROVED REPORT Exam: Resting ECG Reason for Exam: dizziness, fever Patient Location: E HR:61 bpm ECG Measurements Heart Rate 61 AXIS MI 141 P 30 QRSd 88 QRS 73 QT 417 T 52 QTc 420 Conclusion Sinus rhythm...normal P axis, V-rate 60- 99 Physician: no stemi
[2022-10-04 18:31] LABS: Troponin I < 50 ng/L (<or=60)
== END 2022-10-04 19:00 | disposition home or self-care (01) ==
PROVIDERS: Physician Assistant; Emergency Provider Physician Assistant; PCP Nurse Practitioner
DX: J10.1 Influenza due to other identified influenza virus with other respiratory manifestations (principal); Z86.16 Personal history of COVID-19; Z20.822 Contact with and (suspected) exposure to COVID-19
CPT/HCPCS: 36415; 80053; 93005; 96360; 99284; 71045; 83735; 84484; 85025; 85379; 93010

== ENCOUNTER 2022-10-13 14:02 | Outpatient (REF) | payer BC, SELFPAY | END 2022-10-13 14:03 | disposition home or self-care (01) | LOC: LBN 14:02 | PROVIDERS: PCP Nurse Practitioner; Visit Provider Physician Assistant Medical | DX: J02.9 Acute pharyngitis, unspecified (principal) | CPT/HCPCS: 87081 ==

== ENCOUNTER 2023-04-21 06:10 | Day surgery (SDC) | payer BC, SELFPAY ==
[2023-04-21] VITALS (8 sets, daily range): BP systolic 92–112; BP diastolic 52–78; PULSE 47–71; RESP 11–19; TEMP 36.2–36.7; O2SAT 97–100; BMI 24.0
[2023-04-21] MEDS: Lactated Ringers 1,000 ML 125 ML IV (06:53)
--- NOTE | 2023-04-21 06:54 | ANES.PREOP_ITS ---
General Info Date of Service Date Performed: 04/21/23 Height: 5 ft 4 in Weight: 63.6 kg Body Mass Index (BMI): 24.0 Surgical Procedure: Operation Date: 04/21/23 07:40 Proposed Procedure Side Surgeon p Suction D&C Franchesca Nunez MD Meds Allergies and Home Medications Allergies Allergy/AdvReac Type Severity Reaction Status Date / Time hydrocodone AdvReac Unknown Vomiting Verified 04/21/23 06:30 hydrocodone bitartrate AdvReac Unknown Vomiting Verified 04/21/23 06:30 [From Vicodin] Home Medication Medication Instructions Recorded Multivitamin 1 tab PO DAILY 05/15/22 fexofenadine 60 mg tablet (Violetta 60 mg PO BID 08/09/22 Allergy) estradiol 2 mg tablet 2 mg PO TID 04/20/23 prednisone 5 mg tablet 5 mg PO BID 04/20/23 progesterone micronized 200 mg 200 mg vaginal BID 04/20/23 capsule Current Visit Medications: Current Medications Generic Name Dose Route Start Last Admin Trade Name Freq PRN Reason Stop Dose Admin Ringer's Solution 1,000 mls @ 125 mls/hr 04/21/23 06:00 04/21/23 06:53 IV 04/21/23 16:00 125 mls/hr INFUSION ANA Administration Doxycycline Hyclate 100 mg/ 100 mls @ 100 mls/hr 04/21/23 06:00 Sodium Chloride IVPB 04/21/23 16:00 CLINICAL MENTAL HEALTH COUNSELOR ANA IV Miscellaneous Supplies 1 each 04/21/23 06:00 Iv Access IV 04/21/23 23:59 DIRECTED ANA Sodium Chloride 0 ml 04/21/23 06:00 Normal Saline Flush 10 Ml Syr IV 04/21/23 23:59 PRN PRN Sodium Chloride 0 ml 04/21/23 06:00 Normal Saline 10 Ml Vial IJ 04/21/23 23:59 DIRECTED PRN Sterile Water 0 ml 04/21/23 06:00 Water,Injection,Sterile 10 Ml Vial IJ 04/21/23 23:59 DIRECTED PRN PFSH Active Problems Active Problems: Problem Status Onset Code Left medial knee pain M25.562 Routine medical exam Z00.00 Instability of both shoulder joints 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 assoc with hyperemesis. MRA/MRI of brain nl. Occipital nerve block 06/29/18 with temporary improvement. COVID (~12/30/21) Gastric mass [place]astrodu[place] [facility] [place] BENIGN (see problem list for details) Gastroesophageal reflux disease Hyperemesis affecting , antepartum From 9 weeks until approximately 16 weeks. Patient remains nauseated but without emesis. Migraine Surgical History Surgical History Biopsy of breast (12/22/16) Benign. [facility]. Colposcopy Cervix With Loop Electrode Conization Foot Arthrodesis Knee Surgery Open Distal Gastrectomy and Billroth 1 (07/08/17) [place] gastroduodenal mass[place] [facility] [place] Tobacco Smoking/Tobacco Use Status: Never Passive smoking exposure: No Second hand exposure: No Alcohol Alcohol Intake: never Substance Use Substance use: Never Substance use type: does not use Prental History History 2 Para 2 Hx # Term Pregnancies 2 Multiple births 0 Hx # Pregnancies 0 Ectopic pregnancies 0 AB induced 0 Hx Number of Living Children 2 AB spontaneous 0 Past Pregnancies Del. Date GA/Weeks # Preg Succ Route Wgt Sex Labor Lgth Anesth esia Location Prov Complic 12/24/18 38 No vaginal 3458.642 g Male Maria Antonia Nieves Delivery Date: 12/24/18 Last Updated by: Dorcas Jurado Vital Signs and Lab Results Vital Signs Most Recent Vital Signs in EMR: Most Recent Vital Signs Temp Pulse Resp BP Pulse Ox 36.3 C L 66 16 106/74 100 04/21/23 06:18 04/21/23 06:18 04/21/23 06:18 04/21/23 06:18 04/21/23 06:18 Lab Results Blood Type / Crossmatch: No Data to Display Complete Blood Count: No Data to Display Complete Metabolic Panel: No Data to Display Liver Function Panel: No Data to Display Coagulation Panel: No Data to Display Cardiac Panel: No Data to Display Arterial Blood Gas: No Data to Display Venous Blood Gas: No Data to Display Pancreas Panel: No Data to Display Thyroid Panel: No Data to Display Infectious Disease: No Data to Display Blood Cultures: No Data to Display Toxicology Panel: No Data to Display Panel: No Data to Display Imaging and Studies Imaging and Studies Study information below may be from another EMR and interpreted by another provider. Please see original notes in EMR for more complete details. EKG Summary: 10/04/2022: Exam: Resting ECG Reason for Exam: dizziness, fever Patient Location: E HR:61 bpm ECG Measurements Heart Rate 61 AXIS NE 141 P 30 QRSd 88 QRS 73 QT 417 T52 QTc 420 Conclusion Sinus rhythm...normal P axis, V-rate 60- 99 Physician: no stemi Anesthesia Assessment and Plan Anesthesia History Personal History: No History of Anesthesia Complications Family History: No Family History of Anesthesia Complications Exercise Tolerance Exercise Tolerance: Metabolic Equivalents>4 Pertinent Negatives Pertinent Negatives: No Major Cardiovascular Symptoms or Complaints and No Major Pulmonary Symptoms or Complaints Cardiac & Pulmonary Exam Cardiac Exam: Normal S1/S2 Heart Sounds Pulmonary Exam: Clear Bilateral Breath Sounds Implantable Cardiac Device Does patient have a Pacemaker or an ICD?: No Airway Exam Known Difficult Airway: No Mallampati Class: 1 Mouth Opening: Normal (> 3cm) Thyromental Distance: Greater than 3 cm Neck Range of Motion: Full ROM Neck Circumference: Normal Teeth Condition: Normal Dentition ASA Classification ASA Score: ASA 2 Emergency Case?: No NPO Status NPO Status: NPO Clears >2 hours, Solids >8 hours Status Status: Positive HCG Anesthesia Plan Resuscitation Status: Full Code Anesthesia Technique: General Anesthesia Airway Planned: Natural Airway Monitors Used: Standard Monitors
--- NOTE | 2023-04-21 07:18 | W.PM.HP.N ---
Date of service: 04/21/23 Time of Service: 07:18 Assessment and Plan Assessment and plan (1) Miscarriage: Status: Acute Assessment and plan: Gestational carrier with a embryonic demise at 8W5D EGA. The plan is to perform a D&C under ultrasound guidance.Informed consent was obtained. Patient was counseled regarding the risk of puncture of uterus with subsequent bleeding and need for possible laparotomy;the risk of infection and injury to surrounding structures including bowel, bladder, and blood vessels. Her questions were answered. (2) state, gestational carrier: Status: Acute (3) Rh negative state in antepartum period: Status: Acute Assessment and plan: Patient received RhoGAM 04/20/2023 at the time of the diagnosis of embryonic demise. History of Present Illness History of Present Illness Chief Complaint: Embryonic demise 8W5D EGA Narrative: Patient is a 38-year-old gestational carrier currently 8W5D EGA with RADHA 11/25/23 who was diagnosed with embryonic demise yesterday afternoon at the time of scheduled u/s. No heart tones noted. Pt called and D&C will be performed today. She received Rhogam yesterday. Single embryo transfer at [facility]. Review of Systems All systems reviewed & are unremarkable except as noted in HPI and below Genitourinary Genitourinary: Reports system reviewed and no additional complaints, except as documented, Denies abnormal vaginal bleeding and Reports amenorrhea Psychiatric Psychiatric: Reports system reviewed and no additional complaints, except as documented PFSH All Active Problems (Updated 04/21/23 @ 07:27 by Franchesca Nunez MD) Rh negative state in antepartum period (Acute) Miscarriage (Acute) state, gestational carrier (Acute) Left medial knee pain (Acute) Routine medical exam (Acute) Instability of both shoulder joints (Acute) Patient desires (Acute) Labral tear of shoulder (Acute) Suspected Scapular dyskinesis (Acute) Spasm of thoracic back muscle (Acute) Injury of right elbow region (Acute 08/19/20) Encounter for procreative management and counseling for person acting as gestational surrogate (Acute) Umbilical hernia (Acute) Surgical consult [facility] 08/18/2015: Small hernia (umbilical vs. low epigastric), recommend surgery at pt convenience Atopic dermatitis (Chronic) Allergic rhinitis (Chronic) Medical History Anxiety Chronic daily headache Onset 06/29/18. assoc with hyperemesis. MRA/MRI of brain nl. Occipital nerve block 06/29/18 with temporary improvement. COVID (~12/30/21) Gastric mass [place] [facility] [place] BENIGN (see problem list for details) Gastroesophageal reflux disease Hyperemesis affecting , antepartum From 9 weeks until approximately 16 weeks. Patient remains nauseated but without emesis. Migraine Surgical History Biopsy of breast (12/22/16) Benign. [facility]. Colposcopy Cervix With Loop Electrode Conization Foot Arthrodesis Knee Surgery Open Distal Gastrectomy and Billroth 1 (07/08/17) [place] gastroduodenal [place] [facility] Family History Paternal Grandfather Neoplasm Melanoma Colon CA dx'ed 70s Mother Neoplasm Melanoma Depression Maternal Grandfather Colon cancer Pancreatic cancer Maternal Grandmother Depression Social History Smoking/Tobacco Use Status: Never Second Hand Exposure: No Smoking risk assessment performed?: Yes Alcohol Intake: never Drug use: Never Substance use type: does not use Adopted: No Caregiver/Support person: No Foster care: No Household members: spouse, children and other Details: H-Martin, Javed, S-Rodney Housing: house Number of Children: 2 Communication Needs: Corrective Lenses Education Level: master's degree Do you need help understanding health information?: Never 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 [employer] Pets and animals: Yes (Chickens and ducks) Pets and animals: farm animals Sexually active: Yes Do you think of yourself as: straight/heterosexual Current gender identity: female What is your relationship status?: How often do you talk on the phone with friends or family?: three or more times per week How often do you get together with friends or relatives?: once per week Do you belong to any clubs or organized social groups?: no Panel score (0-1 are the most socially isolated patients): 2 What type of physical activity do you participate in: walking and running Duration: 15-30 minutes/day Frequency: 3-4 times per week Elizabeth/Sabianist: Pentecostalism Special elizabeth needs: No Seatbelt use: always Helmet use: Yes Helmet use: always Drive intox or ride w/intox driver/guide: No Do you feel safe at home: Yes Do you feel safe in your relationship?: Yes Female Reproductive History Menstrual control method: none and condoms History History 2 Para 2 Hx # Term Pregnancies 2 Multiple births 0 Hx # Pregnancies 0 Ectopic pregnancies 0 AB induced 0 Hx Number of Living Children 2 AB spontaneous 0 Past Pregnancies Del. Date GA/Weeks # Preg Succ Route Wgt Sex Labor Lgth Anesthesia Location Prov Complic 12/24/18 38 No vaginal 7 lb 10 oz Male Maria Antonia Nieves Delivery Date: 12/24/18 Last Updated by: Franchesca Nunez M.D. [facility] Allergies and Home Medications Allergies Allergy/AdvReac Type Severity Reaction Status Date / Time hydrocodone AdvReac Unknown Vomiting Verified 04/21/23 06:30 hydrocodone bitartrate AdvReac Unknown Vomiting Verified 04/21/23 06:30 [From Vicodin] Home Medications Medication Instructions Recorded Confirmed Type Multivitamin 1 tab PO DAILY 05/15/22 04/21/23 History fexofenadine 60 mg tablet (Violetta 60 mg PO BID 08/09/22 04/21/23 History Allergy) estradiol 2 mg tablet 2 mg PO TID 04/20/23 04/21/23 History prednisone 5 mg tablet 5 mg PO BID 04/20/23 04/21/23 History progesterone micronized 200 mg 200 mg vaginal BID 04/20/23 04/21/23 History capsule Exam Narrative Exam Narrative: Patient comfortable no nausea or vomiting or bleeding during this Const General: healthy appearing Nutritional Appearance: average body habitus Orientation: alert, awake and oriented x3 Neck Neck: normal visual inspection Resp Effort & Inspection: normal respiratory effort Auscultation: clear to auscultation bilaterally Cardio Rate: regular rate Rhythm: regular rhythm GI Inspection: normal to inspection Palpation: soft and nontender General: deferred Skin General skin exam: no rashes or lesions noted Neuro Cognition: normal cognition Speech: speech normal Gait: normal gait Extrem General: normal to inspection Psych Appearance: grossly normal Mental Status: mental status grossly normal Speech and Movement: speech and movement normal Mood: congruent mood Affect: normal affect Attitude: cooperative Thought Process: normal Thought Content: normal Insight: insight good Judgment: judgment good Results Last Vital Signs Temp 97.3 F L 04/21/23 06:18 Pulse 66 04/21/23 06:18 Resp 16 04/21/23 06:18 BP 106/74 04/21/23 06:18 Pulse Ox 100 04/21/23 06:18 Time Spent Time spent with Patient: <40 minutes Time was spent: preparing to see the patient(eg.review tests), obtaining and/or reviewing separately otained hiistory, ordering medications,tests, procedures and counseling the patient
[2023-04-21 07:25] LABS: HGB 12.8 g/dL (11.2-15.7); MCH 30.3 pg (27.0-33.0); MCHC 33.7 % (32.0-36.0); MCV 90 fL (80-95); MPV 9.1 fL (8.0-11.0); Platelet Count 255 10^3/uL (130-400); RBC 4.22 10^6/uL (3.93-5.22); RDW 13.4 % (11.7-14.6); RDW-SD 44.5 fL; WBC 12.01 10^3/uL (4.4-10.8)
[2023-04-21 07:38] LABS: Anion Gap 10.5 mmol/L (3-11); CO2 25.5 mmol/L (21.0-32.0); Chloride 105 mmol/L (98-107); Potassium 3.3 mmol/L (3.5-5.1); Sodium 141 mmol/L (136-145)
[2023-04-21] MEDS: DOXYCYCLINE 100 MG in Normal Saline 100 ML IVPB (07:55)
[2023-04-21] MEDS: Bupivacaine 0.25% Pres-Free 30 ML VIAL (08:13)
[2023-04-21] MEDS: Silver Nitrate Stick 1 EACH (08:20)
--- NOTE | 2023-04-21 08:20 | POC_PTH ---
PATIENT: Jerome Robledo LOC: [facility] U#:[id number] AGE/SX: 38/F ROOM: RE04/21/[address]: Franchesca Nunez : 1985 BED: DIS: 04/21/2023 SPEC #: [id number] RECD: 04/21/23 12:47 STATUS: RICH RE #: [id number] DANNI: 04/21/23 08:[address]: Franchesca Nunez DEPT: Surgical Specimen RECD BY: Cindy Avendano ENTERED: 04/21/23 12:50 SP TYPE: CORBY MOON DR: Rebekah Greco APRN Tissues: 1 - INDUCED CHROMOSOME ANALYSIS PROFILE Procedures: GROSS AND MICRO LEVEL 4 CHROMOSOME ANALYSIS 15-20 CELLS CHROMOSOME ANALYSIS TISSUE CULTURE Comments: [id number] (CYTOGENETICS - [id number])
--- NOTE | 2023-04-21 08:37 | W.PM.DSUDISC ---
Date of service: 04/21/23 Time of Service: 08:37 Discharge Plan Disposition Patient Disposition: Home Condition: Good Discharge Details Attending Provider: Franchesca Nunez Primary Care Provider: Rebekah Greco Home Meds and New Rx's Prescriptions: No Action fexofenadine [Violetta Allergy] 60 mg tablet 60 mg PO BID Multivitamin 1 tab PO DAILY Discharge Instructions Additional Instructions: Stop your estrogen and progesterone. I will write a prescription for control pills that you can start when you get your next period. Your period should come in 3 to 4 weeks. Begin the control pill the Tuesday after you start bleeding. I will have the initial pathology results available in 2 weeks to chromosome testing will take up to a month. I would like to see you in the office in 2 weeks for a postop check. Please contact me if you have any concerns or questions. Stand Alone Forms: DSU Post D&C Miscarriage Activity:: Activity as Tolerated Diet:: As Tolerated Discharge Orders Discharge Orders: Discharge Order (Routine); Ordered 04/21/23 Ordered By: Franchesca Nunez DS: Diagnosis Discharge Diagnosis (1) Miscarriage: Status: Acute (2) state, gestational carrier: Status: Acute (3) Rh negative state in antepartum period: Status: Acute (4) Hx of dilation and curettage: Status: Acute
[2023-04-21] MEDS: LORazepam 2 MG/ML VIAL 0.5 MG IVP (08:41)
--- NOTE | 2023-04-21 09:36 | W.ANESPOSTOP ---
Postoperative Evaluation Date, Time and Location Date Performed: 04/21/23 Time Performed: 09:36 Patient Location: Day Surgery Unit Vital Signs Most Recent Imported Vital Signs: Most Recent Vital Signs Temp Pulse Resp BP Pulse Ox 36.4 C L 54 L 16 101/59 L 100 04/21/23 09:25 04/21/23 09:25 04/21/23 09:25 04/21/23 09:25 04/21/23 09:25 Pain Score Most Recent Pain Score: Most Recent Pain Score Pain Level 2 04/21/23 09:25 Assessment Mental Status: Awake (Alert & Oriented to Patient Baseline) Airway and Respiratory Function: Patent airway with normal (patient baseline) respiratory exam Cardiovascular Function: Hemodynamically Stable Hydration Status: Adequately Hydrated Nausea & Vomiting: No Nausea or Vomiting Pain: Pt. Denies Any Pain Peripheral Nerve Block: Patient did not receive a nerve block
--- NOTE | 2023-04-21 09:58 | W.PM.OP ---
Date of service: 04/21/23 Time of Service: 09:58 Operative Note Operative Note DATE OF PROCEDURE: 04/21/23 PRE-OP DIAGNOSIS: Embryonic demise at 8W5D EGA POST-OP DIAGNOSIS: same PROCEDURE: Cervical dilation suction evacuation of uterine contents SURGEON: Franchesca Nunez CLINICAL PRODUCT SPECIALIST: Shaila Reyes ANESTHESIA TYPE: General:No Airway Refer to Anesthesia Record ESTIMATED BLOOD LOSS: 20 PATHOLOGY: other (Products of conception for gross pathology and cytogenetics) COMPLICATIONS: None Patient was transported to: PACU Patient's condition: stable Implants: None Indications: Patient is a 38-year-old gestational carrier currently 8W5D EGA with RADHA 11/25/23 who was diagnosed with embryonic demise yesterday afternoon at the time of scheduled u/s. No heart tones noted.? Decision was made to proceed with a D&C in proximity to her home. Findings: Transabdominal ultrasound performed prior to the procedure so a pole with no heartbeat, normal-appearing gestational sac and normal-appearing pelvis uterus sounded to 10 cm, globular, slightly enlarged. Moderate amount of tissue was retrieved. Uterine cavity was noted to be empty at the completion of the procedure Procedure Description: Patient was taken to the operating room where she was placed in the dorsal supine position and general anesthesia was administered without difficulty. IV Doxycycline was administered upon arrival in the OR. She was then placed in the dorsal lithotomy position in yellowfin stirrups in a neurologically neutral position. She was then prepped, and draped in the usual sterile fashion. Surgical timeout was performed. An initial transabdominal ultrasound was performed with the above-noted findings. [place] speculum was placed into the vagina and the anterior lip of the cervix was infiltrated with 2 cc of 0.25% Marcaine without epinephrine. A single-tooth tenaculum was then used to grasp and hold the anterior lip of the cervix. A paracervical block was performed with 4 cc of quarter percent Marcaine injected into the 4 and 8:00 paracervical spaces respectively. The uterus was sounded to 10 cm. The cervix was then sequentially dilated to a maximum of 9 Sylvia and a 8 mm curved suction cannula was attached to suction and the level of suction tested. The cannula was inserted into the uterine cavity attached to suction and all 4 quadrants of the uterine cavity were suction curetted until there was minimal tissue returned. The suction cannula was then removed a banjo curette was used to perform a gentle curetting of all 4 quadrants of the uterine cavity. Minimal tissue was returned. A final insertion of the suction cannula and suction curetting of all 4 quadrants was performed with minimal tissue returned. All instruments were removed from the vagina tenaculum site was treated with application with Silver Nitrate. Patient was awakened and transported to recovery area in stable condition. All sponge lap needle counts correct x2
== END 2023-04-21 06:11 | disposition home or self-care (01) ==
PROVIDERS: PCP Nurse Practitioner; Visit Provider Obstetrics & Gynecology Gynecology
PROC: (CPT 59841; principal; 2023-04-21 07:30)
DX: O03.9 Complete or unspecified spontaneous abortion without complication (principal); Z33.3 Pregnant state, gestational carrier; O03.4 Incomplete spontaneous abortion without complication; Z3A.08 8 weeks gestation of pregnancy
CPT/HCPCS: 59812; 36415; 80051; 85027; 86850; 86900; 86901; 88305; 86870; 88233; 88262; 88304; J1100; J1885; J2001; J2060; J2250; J2405; J2704

== ENCOUNTER 2023-05-10 01:51 | Outpatient (CLI) | payer OTHER, SELFPAY ==
--- NOTE | 2023-05-10 07:00 | DI.MRI_ITS ---
Exam(s) MR LOWER JOINT LT WO EXAM: MR LOWER JOINT LT WO CLINICAL HISTORY: lt medial knee painm25.562,Pain,? internal derangement, TECHNIQUE: Multiplanar multisequence MRI of the knee was performed. COMPARISON: There are no plain films available time this MRI interpretation. FINDINGS: EFFUSION: There is a minimal amount of increased joint fluid. There is no large joint effusion. The re is no Odell cyst in the popliteal fossa. MARROW:There is no evidence of fracture, bone contusion, nor osteochondral defects.. There are no si gnificant osseous lesions. PATELLOFEMORAL COMPARTMENT: The quadriceps tendon is intact. The patellar ligament is intact. There is no significant thinning of the retropatellar cartilage. No evidence of fissure nor signific ant chondral defect. No osteochondral defect at this level.There is no intraosseous signal to sugges t recent patellar dislocation. There are no patellar retinacular tears. CRUCIATE LIGAMENTS: The anterior cruciate ligament is intact.The posterior cruciate ligament is intac t. MEDIAL COMPARTMENT/MEDIAL MENISCUS: There are no tears of the medial meniscus evident.. There are no chondral defects, osteochondral defects, subarticular marrow edema, nor osteophytes evid ent. MEDIAL COLLATERAL LIGAMENT: Intact LATERAL COMPARTMENT/LATERAL MENISCUS: There is no evidence of lateral meniscal tear.There are no carlos dral defects, osteochondral defects, subarticular marrow edema, nor osteophytes evident. ILIOTIBIAL BAND: Intact LATERAL COLLATERAL LIGAMENT COMPLEX: The fibular collateral ligament is intact. The biceps femoris t endon is intact.Popliteus muscle and tendon are intact. IMPRESSION: 1. Minimal amount of increased joint fluid. No large joint effusion. No Odell cyst. 2. No evidence of bone contusion, osteochondral defects, nor obvious chondral defects. 3. No evidence of cruciate nor collateral ligament tears. 4. No meniscal tears evident. No significant internal derangement evident. DATA REPOSITORY:
== END 2023-05-10 02:11 ==
LOC: DI 01:52
PROVIDERS: PCP Nurse Practitioner; Visit Provider Nurse Practitioner Family
DX: M25.562 Pain in left knee (principal)
CPT/HCPCS: 73721

== ENCOUNTER 2023-05-13 15:23 | Outpatient (CLI) | payer BC, SELFPAY ==
[2023-05-13 14:57] LABS: HCG Quant, Pregnancy 1 mIU/mL (1-3)
== END 2023-05-13 15:24 | disposition home or self-care (01) ==
LOC: LBO 15:23
PROVIDERS: PCP Nurse Practitioner; Visit Provider Obstetrics & Gynecology Gynecology
DX: Z98.890 Other specified postprocedural states (principal)
CPT/HCPCS: 36415; 84702

== ENCOUNTER 2023-05-30 10:23 | Outpatient (REF) | payer BC, SELFPAY ==
[2023-05-30 17:40] LABS: Bilirubin Negative (Negative); Blood Moderate (Negative); Clarity Clear (Clear); Glucose Negative (Negative); Ketones Negative (Negative); Leukocyte Esterase Small (Negative); Nitrite Negative (Negative); Urobilinogen 0.2 mg/dL (Up to 0.2)
[2023-05-30 17:55] LABS: WBC 20-50 HPF (0-5)
[2023-05-30 17:56] LABS: Bacteria Moderate HPF (Negative); C & S Indicated? Yes; Crystals Negative HPF (Negative); Epithelial Cells Rare HPF (Negative); Mucus Negative (Negative)
== END 2023-05-30 10:24 | disposition home or self-care (01) ==
LOC: LBO 10:23
PROVIDERS: PCP Nurse Practitioner; Visit Provider Nurse Practitioner Adult Health
DX: N30.01 Acute cystitis with hematuria (principal); R82.998 Other abnormal findings in urine
CPT/HCPCS: 87077; 81003; 81015; 87086; 87186

== ENCOUNTER 2023-05-31 08:05 | Outpatient (CLI) | payer BC, SELFPAY ==
[2023-05-31 08:14] LABS: Abs Immature Grans 0.03 10^3/uL (0.0-0.06); Absolute Basophil Count 0.03 10^3/uL (0.0-0.2); Absolute Eosinophil Count 0.11 10^3/uL (0.0-0.7); Absolute Lymphocyte Count 2.29 10^3/uL (1.2-3.4); Absolute Neutrophil Count 3.94 10^3/uL (1.2-6.7); Basophils % 0.4; Eosinophils % 1.6; HGB 12.3 g/dL (11.2-15.7); Immature Grans % 0.4; Lymphocytes % 32.7; MCH 30.1 pg (27.0-33.0); MCHC 33.2 % (32.0-36.0); MCV 91 fL (80-95); MPV 9.5 fL (8.0-11.0); Monocytes % 8.6; Neutrophils % 56.3; Platelet Count 190 10^3/uL (130-400); RBC 4.08 10^6/uL (3.93-5.22); RDW 12.3 % (11.7-14.6); RDW-SD 40.5 fL
[2023-05-31 08:53] LABS: ALT 21 U/L (14-59); AST 19 U/L (15-37); Albumin 3.3 g/dL (3.4-5.0); Alkaline Phosphatase 46 U/L (46-116); Anion Gap 6.9 mmol/L (3-11); BUN 7 mg/dL (7-18); Bilirubin, Total 0.3 mg/dL (0.2-1.0); CO2 29.1 mmol/L (21.0-32.0); CREATININE 0.9 mg/dL (0.55-1.02); Calcium 8.8 mg/dL (8.5-10.1); Chloride 107 mmol/L (98-107); Glucose 100 mg/dL (74-106); Potassium 3.5 mmol/L (3.5-5.1); Sodium 143 mmol/L (136-145); Total Protein 6.7 g/dL (6.4-8.2)
== END 2023-05-31 08:06 | disposition home or self-care (01) ==
LOC: LBO 08:05
PROVIDERS: PCP Nurse Practitioner; Visit Provider Nurse Practitioner Adult Health
DX: R53.81 Other malaise (principal)
CPT/HCPCS: 36415; 80053; 85025

== ENCOUNTER 2023-06-14 15:13 | Outpatient (CLI) | payer OTHER, SELFPAY ==
--- NOTE | 2023-06-14 15:00 | DI.RAD_ITS ---
Exam(s) XR KNEE LT 3V AP,LAT,GIOVANY EXAM: XR KNEE LT 3V AP,LAT,GIOVANY CLINICAL HISTORY: LEFT KNEE PAIN. TECHNIQUE: 2D digital imaging was performed of the left knee. Three images were obtained. Merchant ,AP and lateral views were obtained. COMPARISON: No exams were available for comparison FINDINGS: BONES: No acute fracture is present. No bony destructive lesion is seen. JOINTS: The knee is normally aligned. No joint effusion is seen. No loose body. SOFT TISSUE: Normal. IMPRESSION: Normal radiographs of the left knee. DATA REPOSITORY: RADIATION DOSE DELIVERED:
== END 2023-06-14 15:14 | disposition home or self-care (01) ==
LOC: DIORS 15:14
PROVIDERS: PCP Nurse Practitioner; Referring Provider Nurse Practitioner; Visit Provider Student in an Organized Health Care Education/Training Program
DX: M25.562 Pain in left knee (principal)
CPT/HCPCS: 73562

== ENCOUNTER 2023-07-04 08:59 | Outpatient (CLI) | payer SELFPAY ==
--- NOTE | 2023-07-04 08:23 | DI.US_ITS ---
Exam(s) US TRANSVAGINAL EXAM: US TRANSVAGINAL CLINICAL HISTORY: need complete follicle count and ES thickness, Z31.9-procreative management. TECHNIQUE: Ultrasound of the pelvis, transvaginal was performed using standard protocol. COMPARISON: US US SONOHYSTEROGRAM from 09/04/2021 FINDINGS: UTERUS: Position: Anteverted. Size: 7.7 x 3.5 x 4.9 cm Endometrium: 0.5 cm. Small amount of fluid/blood within the endometrial cavity. Patient currently menstruating. Myometrium: Unremarkable. Cervix: Unremarkable. OVARIES: Right: 2.3 x 1.1 x 1.1 cm Cyst or mass: 4 follicles noted, 5 millimeters, 4 millimeters and 2 measuring 3 millimeters. Left: 2.8 x 1.2 x 1.7 cm Cyst or mass: 3 follicles, 9, 7 and 3 millimeters. DOPPLER: Color: Symmetric and uniform flow to both ovaries. No hyperemia. Duplex: Normal ovarian arterial waveforms visualized. CUL-DE-SAC: Free fluid: None. IMPRESSION: 1. Normal-appearing uterus. 2. Unremarkable bilateral ovaries. 4 follicles on the right ovary. Three follicles on the left ovary DATA REPOSITORY:
[2023-07-04 08:32] LABS: TSH (W/Ref FT4) 0.86 uIU/mL (0.36-3.74)
[2023-07-04 08:33] LABS: HCG Quant, Pregnancy < 1 mIU/mL (1-3)
[2023-07-04 17:52] LABS: Estradiol 54 pg/mL (See Note); FSH 15.1 mIU/mL (See Note); LH 9.5 mIU/mL (See Note); Progesterone 1.1 ng/mL (See Table)
== END 2023-07-04 09:00 | disposition home or self-care (01) ==
PROVIDERS: PCP Nurse Practitioner; Visit Provider Obstetrics & Gynecology Gynecology
DX: Z33.3 Pregnant state, gestational carrier (principal); Z31.9 Encounter for procreative management, unspecified
CPT/HCPCS: 36415; 76830; 82670; 83001; 83002; 84144; 84443; 84702

== ENCOUNTER 2023-07-08 08:06 | Emergency (ER) | payer BC, SELFPAY ==
[2023-07-08] VITALS (36 sets, daily range): BP systolic 78–108; BP diastolic 37–63; PULSE 49–122; RESP 9–22; O2SAT 100
--- NOTE | 2023-07-08 08:00 | RT.EKG_ITS ---
APPROVED REPORT Exam: Resting ECG Reason for Exam: Dizziness Patient Location: E HR:64 bpm ECG Measurements Heart Rate 64 AXIS SC 148 P -8 QRSd 79 QRS 79 QT 397 T 49 QTc 409 Conclusion Sinus rhythm...normal P axis, V-rate 60- 99 sinus rhtyhm normal axis normal intervals, non ischemic
--- NOTE | 2023-07-08 08:40 | W.ED.GENAD ---
Discharge Plan Disposition Patient Disposition: Home Condition: Improving Discharge Details Chief Complaint: Dizzy/Sync Clinical Impression: Near syncope Primary Care Provider: Rebkeah Greco ED Provider: Willard Manning Home Meds and New Rx's Prescriptions: No Action Classic 28 mg iron- 800 mcg tablet 1 tab PO DAILY aspirin 81 mg Tablet,Delayed Release (Dr/Ec) 81 mg PO DAILY estradiol 2 mg tablet 2 mg PO TID Patient Comments: TAKE 1 TABLET BY MOUTH THREE TIMES DAILY doxycycline hyclate 100 mg tablet 100 mg PO BID Patient Comments: TAKE 1 TABLET BY MOUTH TWICE A DAY DIRECTED naltrexone 1.5 mg Capsule 3 mg PO HS Discharge Instructions Instructions: Near Syncope (ED) Additional Instructions: Please follow-up closely with your primary care physician. Consider further testing which might include Holter monitor and/or echocardiogram. Please return immediately to the emergency department for any worsening symptoms. Medical Decision Making 38-year-old female currently undergoing hormonal fertility treatment to become a surrogate, on estradiol, presents with presyncopal sensation over the last 2 days associated with decreased exertional ability. Denies leg pain or swelling denies recent immobilization, no history of thromboembolic disease. No headache visual changes or change in speech. No focal weakness. Patient is afebrile nontoxic neurologically intact nonmeningeal. Not hypoxic, not tachypneic. Given acute onset symptomatology in the setting of estradiol use must consider PE, patient also experiencing tinnitus and nausea must also consider venous sinus thrombosis, lower suspicion for ACS aortic pathology pneumonia pneumothorax CVA TIA intra-abdominal process or UTI. Will obtain basic labs, troponin BNP, coags, EKG normal sinus rhythm normal axis normal intervals nonischemic, CTA chest, will discuss best imaging modality with radiology regarding imaging for sinus venous thrombosis. Fluids Zofran close reassessment. 10: 01 patient will be able to receive an appropriate bolus for both the chest and the head given her weight, these diet boluses will be appropriately sensitive for both studies per radiology. 14: 11 patient resting comfortably no acute distress no chest pain or shortness of breath. Neurologically intact. Hemodynamically stable. Patient did leak mild troponin that is now downtrending towards normal value. EKG nonischemic. No arrhythmia noted on telemetry. CT negative for PE, CT head negative for sinus venous thrombosis. Bedside ultrasound of the heart performed to assess for any global dyskinesia that would suggest Takotsubo or other cardiomyopathy. Normal ventricular ejection fraction without signs of wall motion abnormality on bedside. Given patient symptomatology will encourage close follow-up with primary care physician to consider outpatient echocardiogram and/or Holter monitor. Given home care instructions and strict return precautions. Patient family feel comfortable following up. HPI General Date/Time Provider Initiated Documentation: 07/08/23 08:07. HPI Narrative: 38-year-old female presents with 2 days of dizziness and presyncopal sensation associated with some shortness of breath nausea and ringing in her ears. Denies headache. Of note patient is on exogenous estrogen as she is undergoing fertility treatment to become a surrogate. Denies leg pain or swelling. No syncope, no change in speech. No recent travel no immobilization. No history of thromboembolic disease. Underwent medical screening examination yesterday at urgent care with normal blood sugar and EKG. Was given return precautions for any persistent or worsening symptoms. At this point today patient is concerned that she will pass out if she exerts herself. Related Data Home Medications Medication Instructions Recorded Confirmed vits no.[id number]-[id number] fum 1 tab PO DAILY 05/13/23 07/08/23 28 mg iron-folic acid 800 mcg tablet (Classic ) aspirin 81 mg tablet,delayed 81 mg PO DAILY 07/08/23 07/08/23 release doxycycline hyclate 100 mg tablet 100 mg PO BID 07/08/23 07/08/23 estradiol 2 mg tablet 2 mg PO TID 07/08/23 07/08/23 naltrexone 1.5 mg capsule 3 mg PO HS 07/08/23 07/08/23 Allergies Allergy/AdvReac Type Severity Reaction Status Date / Time hydrocodone AdvReac Unknown Vomiting Verified 07/08/23 08:18 hydrocodone bitartrate AdvReac Unknown Vomiting Verified 07/08/23 08:18 [From Vicodin] General Stated Complaint: Dizzy/Sync SATNAM: 3 Review of Systems Narrative: Review of Systems Constitutional: negative Eyes: negative ENT: negative Cardiovascular: Near syncope Respiratory: negative Gastrointestinal: Nausea : negative Musculoskeletal: negative Skin: negative Neurologic: Tinnitus Psych: negative PFSH All Active Problems (Updated 07/08/23 @ 13:13 by Willard Manning MD) Near syncope (Acute) Encounter for procreative management and counseling for gestational carrier (Acute) Internal derangement of left knee (Acute) Grief associated with loss of fetus (Acute) Hx of dilation and curettage (Acute) 04/21/2023: D&C 8w5d EGA Rh negative state in antepartum period (Acute) Miscarriage (Acute) state, gestational carrier (Acute) Left medial knee pain (Acute) Routine medical exam (Acute) Instability of both shoulder joints (Acute) Patient desires (Acute) 04/2023 gestational carrier. Working with [place], [place] Labral tear of shoulder (Acute) Suspected Scapular dyskinesis (Acute) Spasm of thoracic back muscle (Acute) Injury of right elbow region (Acute 08/19/20) Encounter for procreative management and counseling for person acting as gestational surrogate (Acute) Umbilical hernia (Acute) Surgical consult [facility] 08/18/2015: Small hernia (umbilical vs. low epigastric), recommend surgery at convenience Atopic dermatitis (Chronic) Allergic rhinitis (Chronic) Medical History Anxiety Chronic daily headache Onset 06/29/18. assoc with hyperemesis. MRA/MRI of brain nl. Occipital nerve block 06/29/18 with temporary improvement. 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 Patient remains nauseated but without emesis. Migraine Surgical History Biopsy of breast (12/22/16) Benign. [facility]. Colposcopy Cervix With Loop Electrode Conization Foot Arthrodesis Knee Surgery Open Distal Gastrectomy and Billroth 1 (07/08/17) For gastroduodenal mass. [facility]. Family History Paternal Grandfather Neoplasm Melanoma Colon CA dx'ed 70s Mother Neoplasm Melanoma Depression Maternal Grandfather Colon cancer Pancreatic cancer Maternal Grandmother Depression Social History Smoking/Tobacco Use Status: Never Second Hand Exposure: No Smoking risk assessment performed?: Yes Alcohol Intake: never Drug use: Never Substance use type: does not use Adopted: No Caregiver/Support person: No Foster care: No Household members: spouse, children and other Details: Caitlin-Javed Salazar, Echo Housing: house Number of Children: 2 Communication Needs: Corrective Lenses Education Level: master's degree Do you need help understanding health information?: Never 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 [employer] Pets and animals: Yes (Chickens and ducks) Pets and animals: farm animals Sexually active: Yes Do you think of yourself as: straight/heterosexual Current gender identity: female What is your relationship status?: How often do you talk on the phone with friends or family?: three or more times per week How often do you get together with friends or relatives?: once per week Do you belong to any clubs or organized social groups?: no Panel score (0-1 are the most socially isolated patients): 2 What type of physical activity do you participate in: walking and running Duration: 15-30 minutes/day Frequency: 3-4 times per week Elizabeth/Worship: Orthodoxy Special elizabeth needs: No Seatbelt use: always Helmet use: Yes Helmet use: always Drive intox or ride w/intox bung driver: No Do you feel safe at home: Yes Do you feel safe in your relationship?: Yes Female Reproductive History Menstrual control method: none and condoms History History 2 Para 2 Hx # Term Pregnancies 2 Multiple births 0 Hx # Pregnancies 0 Ectopic pregnancies 0 AB induced 0 Hx Number of Living Children 2 AB spontaneous 0 Past Pregnancies Del. Date GA/Weeks # Preg Succ Route Wgt Sex Labor Lgth Anesthesia Location [facility] 12/24/18 38 No vaginal 3458.642 g Male Maria Antonia Nieves Delivery Date: 12/24/18 Last Updated by: Dorcas Jurado Exam Narrative Exam Narrative: Physical Examination General: alert, awake, cooperative, resting comfortably, no acute distress HEENT: normocephalic, atraumatic; PERRL, EOM intact, conjunctiva normal; no nasal discharge; moist mucous membranes, oral and pharyngeal mucosa normal, tolerating secretions Neck: supple, trachea midline; full ROM Chest: normal to inspection Respiratory: normal respiratory effort, speaking in full sentences, clear to auscultation, no wheezing, rales or rhonchi Cardiac: regular rate, regular rhythm, S1S2 intact, no murmurs rubs or gallops GI: abdomen soft, non-tender, non-distended; no palpable mass or hepatosplenomegaly Skin: no lesions, rashes or trauma appreciated Neuro: AAOx3, normal speech, moving all extremities Extremities: No peripheral edema Psych: Appropriate mood and affect Course Vital Signs Vital signs: Vital Signs Pulse 60 07/08/23 08:10 Respiratory Rate 14 07/08/23 08:10 Blood Pressure 107/55 L 07/08/23 08:10 Pulse Oximetry 100 07/08/23 08:10 Pulse 60 07/08/23 08:10 Respiratory Rate 14 07/08/23 08:27 Respiratory Effort Non-Labored 07/08/23 08:27 Respiratory Depth Normal 07/08/23 08:27 Respiratory Pattern Normal 07/08/23 08:27 Blood Pressure 107/55 L 07/08/23 08:10 Blood Pressure Position Sitting 07/08/23 08:10 Pulse Oximetry 100 07/08/23 08:10 Oxygen Delivery Method Room Air 07/08/23 08:10 Oxygen Flow Rate 0 07/08/23 08:10 Pain Level 0 07/08/23 08:10
[2023-07-08] MEDS: Ondansetron 4 MG/2 ML VIAL IVP (08:45)
[2023-07-08] MEDS: Normal Saline 1,000 ML 1000 ML IV (08:45)
[2023-07-08 08:49] LABS: Abs Immature Grans 0.02 10^3/uL (0.0-0.06); Absolute Basophil Count 0.03 10^3/uL (0.0-0.2); Absolute Eosinophil Count 0.09 10^3/uL (0.0-0.7); Absolute Lymphocyte Count 2.68 10^3/uL (1.2-3.4); Absolute Monocyte Count 0.41 10^3/uL (0.1-0.8); Absolute Neutrophil Count 3.95 10^3/uL (1.2-6.7); Basophils % 0.4; Eosinophils % 1.3; HCT 39.8 % (36.0-46.0); HGB 13.4 g/dL (11.2-15.7); Immature Grans % 0.3; Lymphocytes % 37.3; MCH 29.7 pg (27.0-33.0); MCHC 33.7 % (32.0-36.0); MCV 88 fL (80-95); MPV 9.1 fL (8.0-11.0); Monocytes % 5.7; Platelet Count 218 10^3/uL (130-400); RBC 4.51 10^6/uL (3.93-5.22); RDW 11.8 % (11.7-14.6); RDW-SD 37.9 fL; WBC 7.18 10^3/uL (4.4-10.8)
[2023-07-08 09:04] LABS: PTT Activated 27.5 sec (21.5-31.9); Prothrombin Time 10.4 sec (9.3-11.0)
[2023-07-08 09:16] LABS: ALT 27 U/L (14-59); AST 22 U/L (15-37); Albumin 3.8 g/dL (3.4-5.0); Alkaline Phosphatase 44 U/L (46-116); Anion Gap 9.1 mmol/L (3-11); BUN 8 mg/dL (7-18); Bilirubin, Total 0.5 mg/dL (0.2-1.0); CO2 26.9 mmol/L (21.0-32.0); CREATININE 0.8 mg/dL (0.55-1.02); Calcium 9.3 mg/dL (8.5-10.1); Chloride 103 mmol/L (98-107); Estimated GFR 96.06 (mL/min/1.73m2); Glucose 104 mg/dL (74-106); NT-proBNP 106 pg/mL (<300); Potassium 3.7 mmol/L (3.5-5.1); Sodium 139 mmol/L (136-145); TSH (W/Ref FT4) 1.01 uIU/mL (0.36-3.74)
[2023-07-08 09:18] LABS: Troponin I 63 ng/L (<or=60)
[2023-07-08 09:50] LABS: Bilirubin Negative (Negative); Blood Negative (Negative); Clarity Clear (Clear); Glucose Negative (Negative); Ketones Negative (Negative); Leukocyte Esterase Small (Negative); Nitrite Negative (Negative); Urobilinogen 0.2 mg/dL (Up to 0.2)
[2023-07-08 09:55] LABS: Bacteria Rare HPF (Negative); C & S Indicated? No/Sq. Contamination; Casts Negative LPF (Negative); Crystals Negative HPF (Negative); Epithelial Cells Many HPF (Negative); Mucus Negative (Negative); RBC 0-2 HPF (0-2)
[2023-07-08] MEDS: Normal Saline - Diluent 50 ML VIAL IJ (10:32)
[2023-07-08] MEDS: Omnipaque 350 MG/ML 100 ML BTL IJ (10:34)
[2023-07-08] MEDS: Normal Saline Flush 10 ML SYR IVP (10:35)
--- NOTE | 2023-07-08 10:37 | DI.CT_ITS ---
Exam(s) CT CHEST PE CTA EXAM: CT CHEST PE CTA CLINICAL HISTORY: dizziness, sob, pre syncope; exogenous estrogen. TECHNIQUE: Imaging Protocol: Axial CT angiography was performed with multi-slice acquisition and mu lti-planar reconstructions as well as axial, coronal and sagittal MIP reconstructions. CONTRAST MATERIAL: Intravenous: Omnipaque 350 Contrast volume:100 ml COMPARISON: CT CT ABDOMEN PELVIS W from 01/03/2019 CR XR PORTABLE CHEST AP from 10/04/[address] HEAD WO/W from 07/08/2023 FINDINGS: Pulmonary Arteries: No evidence of filling defect to suggest pulmonary emboli. Tracheobronchial tree: Patent where visualized. Mediastinum and Chantal: No dominant adenopathy or fluid collection. Pulmonary parenchyma: No consolidation or dominant measurable mass. Pleura: No effusion or pneumothorax. Heart: The heart is not dilated. No coronary artery calcifications are seen. Aorta: Thoracic aorta non-dilated. No aneurysm. No dissection. Upper abdomen: Streak artifact related to patient arm positioning. Bones: Unremarkable for age. Tubes, Catheters, and Lines: None IMPRESSION: No evidence of pulmonary embolism or other acute abnormality.. RADIATION DOSE DELIVERED: Total DLP DATA REPOSITORY: All CT scans at this facility are submitted to the National Radiology Data Registry (NRDR) Dose Index Registry (DIR) with the [employer] (ACR). RADIATION OPTIMIZATION: All CT scans at this facility use at least one of these dose optimization te chniques: automated exposure control; mA and/or kV adjustment per patient size (includes targeted exa ms where dose is matched to clinical indication); or iterative reconstruction.
--- NOTE | 2023-07-08 10:38 | DI.CT_ITS ---
Exam(s) CT HEAD WO/W EXAM: CT HEAD WO/W CLINICAL HISTORY: possible venous sinus thrombosis, dizzy on estroge. TECHNIQUE: Imaging Protocol: Axial computed tomography images with coronal and sagittal reformatted images were created and reviewed. CONTRAST MATERIAL: Intravenous: Omnipaque 350 Contrast volume:structured data in ml COMPARISON: MR MR brain wo from 07/03/2018 MR MR angio brain wo from 07/03/[address] ABDOMEN PELVIS W from 01/03/2019 FINDINGS: Ventricles and Extra axial spaces: Normal in size and morphology for the patient's age. Hemorrhage: None. Cerebral parenchyma: Normal. Enhancement: No suspicious enhancement. Arterial and venous structures are normally opacified. No ev idence of venous sinus thrombosis. Midline shift: None. Brainstem/Cerebellum: Normal. Calvarium: Normal. Visualized Paranasal sinuses/Mastoids: Clear. IMPRESSION: Normal CT scan of the head. No evidence of venous sinus thrombosis. RADIATION DOSE DELIVERED: 1117.73 mGy.cm Total DLP DATA REPOSITORY: All CT scans at this facility are submitted to the National Radiology Data Registry (NRDR) Dose Index Registry (DIR) with the [employer] (ACR). RADIATION OPTIMIZATION: All CT scans at this facility use at least one of these dose optimization te chniques: automated exposure control; mA and/or kV adjustment per patient size (includes targeted exa ms where dose is matched to clinical indication); or iterative reconstruction.
[2023-07-08 12:00] LABS: Troponin I 62 ng/L (<or=60)
== END 2023-07-08 13:26 | disposition home or self-care (01) ==
PROVIDERS: Emergency Provider Emergency Medicine; PCP Nurse Practitioner
DX: R42 Dizziness and giddiness (principal); R55 Syncope and collapse; R06.02 Shortness of breath; Z79.818 Long term (current) use of other agents affecting estrogen receptors and estrogen levels
CPT/HCPCS: 36415; 71275; 80053; 82962; 93005; 96374; 99285; 70470; 81003; 81015; 83880; 84443; 84484; 85025; 85610; 85730; 93010; 99284; J2405; J3490

== ENCOUNTER 2023-07-11 12:27 | Outpatient (CLI) | payer BC, SELFPAY ==
[2023-07-11 18:02] LABS: Estradiol 2673 pg/mL (See Note); Progesterone <0.2 ng/mL (See Table)
== END 2023-07-11 12:28 | disposition home or self-care (01) ==
LOC: LBO 12:27
PROVIDERS: PCP Nurse Practitioner; Visit Provider Obstetrics & Gynecology Gynecology
DX: Z31.7 Encounter for procreative management and counseling for gestational carrier (principal); Z31.9 Encounter for procreative management, unspecified
CPT/HCPCS: 36415; 82670; 83002; 84144

== ENCOUNTER 2023-07-19 08:26 | Outpatient (CLI) | payer BC, SELFPAY ==
[2023-07-19 18:41] LABS: Estradiol 1228 pg/mL (See Note)
[2023-07-19 19:00] LABS: Progesterone 43.8 ng/mL (See Table)
== END 2023-07-19 08:27 ==
LOC: LBO 08:27
PROVIDERS: PCP Nurse Practitioner; Visit Provider Obstetrics & Gynecology Gynecology
DX: Z31.7 Encounter for procreative management and counseling for gestational carrier (principal)
CPT/HCPCS: 36415; 88142; 82670; 84144

== ENCOUNTER 2023-07-22 09:52 | Outpatient (RCR) | payer BC, SELFPAY ==
--- NOTE | 2023-07-22 09:45 | HOLTER_ITS ---
APPROVED REPORT Conclusion This is a 48-hour Holter monitor ordered for syncope Rhythm throughout is sinus. Average heart rate is 67. Minimum was 48, maximum 118 There were rare isolated atrial premature beats A total of 2 PVCs were seen There was no atrial fibrillation, no SVT, no high-grade AV block, no pauses greater than 3 seconds Patient's symptoms were reported which did not correlate to any dysrhythmia
== END 2023-08-16 23:59 | disposition home or self-care (01) ==
LOC: CARDOPNVT 09:52
PROVIDERS: PCP Nurse Practitioner; Visit Provider Nurse Practitioner
DX: R55 Syncope and collapse (principal)
CPT/HCPCS: 93225; 93226

== ENCOUNTER 2023-07-26 13:08 | Outpatient (CLI) | payer SELFPAY ==
[2023-07-26 20:05] LABS: Estradiol 564 pg/mL (See Note)
[2023-07-26 20:14] LABS: LH <0.3 mIU/mL (See Note)
[2023-07-26 20:25] LABS: Progesterone 55.7 ng/mL (See Table)
[2023-07-27 14:33] LABS: HCG Quant, Pregnancy 1 mIU/mL (1-3)
== END 2023-07-26 13:09 | disposition home or self-care (01) ==
LOC: LBO 13:08
PROVIDERS: PCP Nurse Practitioner; Visit Provider Obstetrics & Gynecology Gynecology
DX: Z31.7 Encounter for procreative management and counseling for gestational carrier (principal)
CPT/HCPCS: 36415; 82670; 83002; 84144; 84702

== ENCOUNTER 2023-08-04 01:43 | Outpatient (CLI) | payer BC, SELFPAY ==
--- NOTE | 2023-08-04 06:46 | DI.US_ITS ---
Exam(s) US TRANSVAGINAL EXAM: US TRANSVAGINAL CLINICAL HISTORY: follicle count,endometrial stripe thickness,CARRIER FOR IVF COUPLE,Z31.7. TECHNIQUE: Transvaginal pelvic ultrasound was performed using standard protocol. COMPARISON: US US TRANSVAGINAL from 07/04/2023 FINDINGS: UTERUS: Position: Anteverted. Size: 8.1 long by 3.6 AP by 5.8 transverse cm Endometrium: 0.2 cm. Normal for patient's menstrual status. There is a small amount of fluid seen wit hin the endometrial stripe. Myometrium: Unremarkable. Cervix: Unremarkable. OVARIES: Right: 2.1 x 2.1 x 1.4 cm Cyst or mass: No suspicious cystic or solid masses. There are 2 follicles present. The larger measu res 0.4 x 0.4 x 0.5 cm. The smaller measures 0.3 x 0.2 x 0.3 cm. Left: 2.4 x 2.2 x 2.3 cm Cyst or mass: No suspicious cystic or solid masses. There are 3 follicles present. The largest lacho ures 0.5 x 0.5 x 0.5 cm. There is a 0.3 x 0.3 x 0.3 cm follicle and 0.2 x 0.2 x 0.2 cm follicle. DOPPLER: Color: Symmetric and uniform flow to both ovaries. CUL-DE-SAC: Free fluid: None. Other: None. IMPRESSION: 1. Normal-appearing uterus with endometrial stripe within normal limits. 2. Unremarkable bilateral ovaries. DATA REPOSITORY:
[2023-08-04 08:05] LABS: TSH 0.65 uIU/mL (0.36-3.74)
[2023-08-04 08:12] LABS: HCG Quant, Pregnancy < 1 mIU/mL (1-3)
[2023-08-04 18:13] LABS: Estradiol 16 pg/mL (See Note); Progesterone 0.7 ng/mL (See Table)
[2023-08-04 19:22] LABS: FSH 22.3 mIU/mL (See Note)
== END 2023-08-04 02:03 ==
LOC: DI 01:44
PROVIDERS: PCP Nurse Practitioner; Visit Provider Obstetrics & Gynecology Gynecology
DX: Z31.7 Encounter for procreative management and counseling for gestational carrier (principal)
CPT/HCPCS: 36415; 76830; 82670; 83001; 84144; 84443; 84702

== ENCOUNTER → 2023-08-11 02:06 | Outpatient (CLI) | payer SELFPAY ==
--- NOTE | 2023-08-11 07:15 | DI.US_ITS ---
Exam(s) US TRANSVAGINAL EXAM: US TRANSVAGINAL CLINICAL HISTORY: pt is gestational surrogate,needs follicle count,Z31.7,ENCOUNTER PROCREATIV. TECHNIQUE: Limited transvaginal ultrasound for follicle count an endometrial stripe thickness. COMPARISON: US US TRANSVAGINAL from 08/04/2023 FINDINGS: UTERUS: Position: Anteverted. Endometrium: 0.7 cm. Homogeneous. No fluid within the endometrial cavity. Myometrium: Unremarkable. OVARIES: Right: 3 follicles, 2 measuring 2 millimeters and 1 measuring 5 millimeters. Left: 3 follicles. Two measuring 4 millimeters and 1 measuring 3 millimeters. CUL-DE-SAC: Free fluid: None. IMPRESSION: 1. Endometrial stripe measures 7 millimeters. 2. Three small follicles on each ovary. Largest 5 millimeters on the right. DATA REPOSITORY:
[2023-08-11 20:16] LABS: Estradiol 1631 pg/mL (See Note); Progesterone 0.3 ng/mL (See Table)
[2023-08-11 20:40] LABS: LH 6.9 mIU/mL (See Note)
== END ==
PROVIDERS: PCP Nurse Practitioner; Visit Provider Obstetrics & Gynecology Gynecology
DX: Z31.7 Encounter for procreative management and counseling for gestational carrier (principal)
CPT/HCPCS: 36415; 76830; 82670; 83002; 84144

== ENCOUNTER 2023-08-19 09:34 | Outpatient (CLI) | payer SELFPAY ==
[2023-08-19 08:13] LABS: HCG Quant, Pregnancy < 1 mIU/mL (1-3)
[2023-08-19 18:23] LABS: Estradiol 1482 pg/mL (See Note)
[2023-08-19 18:49] LABS: Progesterone 51.1 ng/mL (See Table)
== END 2023-08-19 09:35 | disposition home or self-care (01) ==
PROVIDERS: PCP Nurse Practitioner; Visit Provider Obstetrics & Gynecology Gynecology
DX: Z31.7 Encounter for procreative management and counseling for gestational carrier (principal)
CPT/HCPCS: 36415; 82670; 84144; 84702

== ENCOUNTER 2023-08-26 18:28 | Outpatient (CLI) | payer BC, SELFPAY ==
[2023-08-26 19:40] LABS: Progesterone 52.4 ng/mL (See Table)
[2023-08-30 09:27] LABS: Lab Add On Test DONE
== END 2023-08-26 18:29 | disposition home or self-care (01) ==
LOC: LBO 18:30
PROVIDERS: PCP Nurse Practitioner; Visit Provider Obstetrics & Gynecology Gynecology
DX: Z31.7 Encounter for procreative management and counseling for gestational carrier (principal)
CPT/HCPCS: 36415; 84144

== ENCOUNTER 2023-08-31 19:08 | Outpatient (CLI) | payer BC, SELFPAY ==
[2023-08-31 15:55] LABS: HCG Quant, Pregnancy < 1 mIU/mL (1-3)
== END 2023-08-31 19:09 | disposition home or self-care (01) ==
LOC: LBO 19:10
PROVIDERS: PCP Nurse Practitioner; Visit Provider Obstetrics & Gynecology Gynecology
DX: Z31.7 Encounter for procreative management and counseling for gestational carrier (principal)
CPT/HCPCS: 84702

== ENCOUNTER → 2023-11-08 17:36 | Outpatient (CLI) | payer BC, SELFPAY ==
--- NOTE | 2023-11-08 | DI.RAD_ITS ---
Exam(s) XR CHEST 2V PA LATERAL EXAM: XR CHEST 2V PA LATERAL CLINICAL HISTORY: Cough TECHNIQUE: 2D digital imaging was performed. COMPARISON: CT CT CHEST PE CTA from 07/08/2023 FINDINGS: HEART: Normal size. Aorta: Not dilated. PULMONARY VASCULATURE: Normal. LUNGS: Clear. PLEURAL SPACE: No pleural effusion or pneumothorax. BONE:Unremarkable for age. Pectus excavatum deformity. Soft tissues: Unremarkable. IMPRESSION: No acute abnormality. DATA REPOSITORY: RADIATION DOSE DELIVERED:
--- NOTE | 2023-11-08 18:01 | DI.VRAD_ITS ---
PROCEDURE INFORMATION: Exam: XR Chest Exam date and time: 11/08/2023 5:49 PM Age: 38 years old Clinical indication: Cough TECHNIQUE: Imaging protocol: Radiologic exam of the chest. Views: 2 views. COMPARISON: CT CHEST PE CTA 07/08/2023 10:18 AM FINDINGS: Lungs: No alveolar infiltrate. Pleural spaces: No pleural fluid collection. No pneumothorax. Heart/Mediastinum: Normal heart size. Bones/joints: Unremarkable for patient age. IMPRESSION: No active pulmonary disease. Dictated and Authenticated by: Thierry Arnett MD. Ordering:JO PRINGLE MD
== END ==
PROVIDERS: PCP Nurse Practitioner; Visit Provider Nurse Practitioner Family
DX: R05.9 Cough, unspecified (principal)
CPT/HCPCS: 71046

== ENCOUNTER 2023-11-21 12:18 | Outpatient (REF) | payer BC, SELFPAY | END 2023-11-21 12:19 | disposition home or self-care (01) | LOC: LBN 12:18 | PROVIDERS: PCP Nurse Practitioner; Referring Provider Nurse Practitioner; Visit Provider Nurse Practitioner | DX: N39.0 Urinary tract infection, site not specified (principal) | CPT/HCPCS: 87086 ==

== ENCOUNTER → 2023-12-30 18:11 | Outpatient (CLI) | payer BC, SELFPAY ==
--- NOTE | 2023-12-30 | DI.RAD_ITS ---
Exam(s) XR RIBS RT W PA LAT CHEST EXAM: XR RIBS RT W PA LAT CHEST CLINICAL HISTORY: RT Rib pain TECHNIQUE: 2D digital imaging was performed. COMPARISON: CR,XR XR CHEST 2V PA LATERAL from 11/08/2023 FINDINGS: RIBS 3 VIEWS-right There are no obvious acute rib fractures evident. No lytic rib lesions identified. CXR- 2 VIEWS: No lung contusion or pneumothorax. There is no pleural effusion evident. Heart size is normal and there is no significant mediastinal widening. IMPRESSION: 1. No obvious rib fractures evident. Also no significant rib lesions. 2. No ipsilateral lung nor pleural abnormality evident. No pneumothorax. DATA REPOSITORY: RADIATION DOSE DELIVERED:
--- NOTE | 2023-12-30 19:11 | DI.VRAD_ITS ---
PROCEDURE INFORMATION: Exam: XR Right Ribs Exam date and time: 12/30/2023 6:48 PM Age: 38 years old Clinical indication: Right-sided; Other: RT rib pain TECHNIQUE: Imaging protocol: Radiologic exam of the right ribs. Views: 2 views. COMPARISON: CR XR CHEST 2V PA LATERAL 11/08/2023 5:49 PM FINDINGS: Bones/joints: Normal. Soft tissues: Normal. IMPRESSION: No acute findings. PROCEDURE INFORMATION: Exam: XR Chest Exam date and time: 12/30/2023 6:48 PM Age: 38 years old Clinical indication: Right-sided; Other: RT rib pain TECHNIQUE: Imaging protocol: Radiologic exam of the chest. Views: 2 views. COMPARISON: CR XR CHEST 2V PA LATERAL 11/08/2023 5:49 PM FINDINGS: Lungs: Unremarkable. No consolidation. Pleural spaces: Unremarkable. No pleural effusion. No pneumothorax. Heart/Mediastinum: Unremarkable. No cardiomegaly. Bones/joints: Unremarkable. IMPRESSION: No acute findings. Dictated and Authenticated by: Fernando Munson MD. Ordering:NEVIN Chicas MD
== END ==
PROVIDERS: PCP Nurse Practitioner; Visit Provider Physician Assistant Medical
DX: R05.3 Chronic cough (principal); R07.81 Pleurodynia; Z86.16 Personal history of COVID-19
CPT/HCPCS: 71046; 71100

== ENCOUNTER 2023-12-31 13:37 | Outpatient (REF) | payer BC, SELFPAY ==
[2023-12-30 22:27] LABS: D-Dimer 240 ng/mlFEU (<500)
== END 2023-12-31 13:38 | disposition home or self-care (01) ==
LOC: LBN 13:37
PROVIDERS: PCP Nurse Practitioner; Visit Provider Physician Assistant Medical
DX: R06.09 Other forms of dyspnea (principal)
CPT/HCPCS: 85379

== ENCOUNTER 2024-01-09 11:21 | Outpatient (CLI) | payer BC, SELFPAY ==
[2024-01-09 11:50] LABS: ESR 3 mm/hr (0-20)
[2024-01-09 12:29] LABS: Vitamin D 25 Total 47.7 ng/mL (30-100)
[2024-01-09 12:32] LABS: ALT 32 U/L (14-59); AST 27 U/L (15-37); Alkaline Phosphatase 61 U/L (46-116); BUN 11 mg/dL (7-18); Bilirubin, Total 0.5 mg/dL (0.2-1.0); CREATININE 0.8 mg/dL (0.55-1.02); Calcium 9.1 mg/dL (8.5-10.1); Chloride 100 mmol/L (98-107); Estimated GFR 96.06 (mL/min/1.73m2); Ferritin 25 ng/mL (8-252); Glucose 93 mg/dL (74-106); Potassium 3.8 mmol/L (3.5-5.1); Sodium 139 mmol/L (136-145); Total Protein 7.4 g/dL (6.4-8.2); Vitamin B12 1100 pg/mL (193-986)
[2024-01-09 12:41] LABS: C-Reactive Protein < 0.50 mg/dL (<or=0.5)
[2024-01-10 10:41] LABS: Lyme Ab w Rflx to Lyme Confirm Negative (Negative)
[2024-01-10 15:49] LABS: ANA Interpretation Positive (Negative); ANA Titer Pattern 1:320 Homogeneous
[2024-01-12 16:50] LABS: Anaplasma phagocytophilum Negative (Negative); B. miyamotoi PCR Negative (Negative); Babesia divergens/MO-1 Negative (Negative); Babesia duncani Negative (Negative); Babesia microti Negative (Negative); Ehrlichia chaffeensis Negative (Negative); Ehrlichia ewingii/canis Negative (Negative); Ehrlichia muris eauclairensis Negative (Negative)
== END 2024-01-09 11:22 | disposition home or self-care (01) ==
LOC: LBO 11:24
PROVIDERS: PCP Nurse Practitioner; Visit Provider Nurse Practitioner
DX: R53.81 Other malaise (principal); R53.83 Other fatigue; R05.9 Cough, unspecified
CPT/HCPCS: 36415; 80053; 82306; 85652; 87798; 82607; 82728; 86038; 86140; 86618

== ENCOUNTER 2024-01-11 17:16 | Outpatient (CLI) | payer BC, SELFPAY ==
[2024-01-13 11:10] LABS: RNP Ab, IgG <6.0 CU (<20.0); Ro60 Ab, IgG <7.0 CU (<20.0); SS-A/Ro, IgG <2.3 CU (<20.0); Sm (Smith) Ab, IgG <8.0 CU (<20.0)
[2024-01-16 12:57] LABS: Anti-DNase B Titer <77 U/mL (0 - 300)
== END 2024-01-11 17:17 | disposition home or self-care (01) ==
LOC: LBO 17:17
PROVIDERS: PCP Nurse Practitioner; Visit Provider Nurse Practitioner
DX: R76.8 Other specified abnormal immunological findings in serum (principal); R53.81 Other malaise
CPT/HCPCS: 36415; 86215; 86235

== ENCOUNTER → 2024-02-29 11:39 | Outpatient (CLI) | payer BC, SELFPAY ==
--- NOTE | 2024-02-29 | DI.RAD_ITS ---
Exam(s) XR KNEE RT 3V AP,LAT,GIOVANY EXAM: XR KNEE RT 3V AP,LAT,GIOVANY CLINICAL HISTORY: PAIN RT KNEE JOINT M25.561. TECHNIQUE: 2D digital imaging was performed of the right knee. Three views obtained. AP, lateral an d PA tunnel views were obtained. COMPARISON: No priors for comparison. FINDINGS: BONES: No acute fracture is present. No bony destructive lesion is seen. JOINTS: The knee is normally aligned. There does appear to be a tiny joint effusion. SOFT TISSUE: There are 2 tiny densities at the superior aspect of the fibular head. The underlying b one appears intact. These may be chronic but tiny avulsed fractures cannot be excluded. IMPRESSION: No definite acute fracture or dislocation. DATA REPOSITORY: RADIATION DOSE DELIVERED:
== END ==
PROVIDERS: PCP Nurse Practitioner; Visit Provider Physician Assistant Medical
DX: M25.561 Pain in right knee (principal)
CPT/HCPCS: 73562

== ENCOUNTER 2024-04-18 12:16 | Outpatient (CLI) | payer BC, SELFPAY ==
--- OUTSIDE RECORDS SUMMARY | 2024-04-18 12:18 | XMS_ITS | Continuity of Care Document ---
Author Name Unknown Organization [facility] Address [address] [place] [address] Care Team Providers Care Phosphoric Acid Operator Name Role Phone MENDY EDWARDS, MATT Chand Primary Care Physician Encounter LTTL_NE FIN NBR [id number] Date(s): 03/22/24 - 03/22/24 [facility] [address] [place] [address]- [place] Encounter Diagnosis Pain in right knee(Final) - Discharge Disposition: Home or Self Care Attending Physician: Tom Perkins MD Admitting Physician: Tom Perkins MD Referring Physician: Tom Perkins MD Allergies, Adverse Reactions, Alerts Substance Reaction Severity Status codeine Nausea and vomiting Severe Active Medications Multi Vitamin+ 0 Refill(s) Start Date: 03/09/24 Status: Ordered Problem List Condition Confirmation Course Effective Dates Status Health [facility] Informant Pain of right patella Confirmed Active Results Radiology Reports * Exam Date Time Procedure Performing Provider Status 03/22/24 3:37 PM MRI Knee w/o Contrast Right Farzad, Elizabeth; Lucy (Verified) Notes: (MRI Knee w/o Contrast Right) Reason For Exam: Rule out osteochondritis and rule out meniscal tear MRI Knee w/o Contrast Right EXAM DESCRIPTION: MRI Knee w/o Contrast Right 03/22/2024 INDICATION: Right knee pain, RULE OUT OSTEOCHONDRITIS AND RULE OUT MENISCAL TEAR TECHNIQUE: MRI examination of the right knee in three planes utilizing T1, fat suppressed PD and fast STIR technique. COMPARISON: None FINDINGS: Menisci appear intact with no evidence of tear. No meniscal cyst is identified Anterior and posterior cruciate ligaments are intact. Medial collateral ligament, fibular collateral ligament, biceps femoris insertion and iliotibial band insertion appear intact. Semimembranosus insertion appears intact. Medial and lateral retinacula appear intact. Distal quadriceps tendon and patellar tendon are intact with no evidence of tear or tendinosis. Popliteus tendon appears intact No joint effusion or popliteal cyst Subtle small focal areas of marrow edema involving the posterior aspect of the lateral tibial plateau and posterior aspect of the lateral femoral condyle suspicious for mild areas of bone contusion. No additional regional marrow edema. No AVN. Mild articular cartilage irregularity and signal abnormality involving the medial patellar facet extending to the patellar apex region suspicious for chondromalacia. No full-thickness articular cartilage defect identified in this region. No significant articular cartilage irregularity or full-thickness defect identified involving the medial or lateral femorotibial compartment. No regional muscle edema to suggest strain or myositis. Irregularity involving the mid aspect of the infrapatellar fat pad with increased T2 signal which may reflect focal injury or inflammation. TT-TG interval is 13 mm. IMPRESSION: Mild focal areas of marrow edema involving the posterior aspect of the lateral femoral condyle and posterior aspect of the lateral tibial plateau suspicious for mild areas of bone contusion Mild articular cartilage irregularity and signal abnormality involving the medial patellar facet extending into the patellar apex region suspicious for chondromalacia without full-thickness articular cartilage defect identified in this region Irregularity involving the mid aspect of the infrapatellar fat pad which may reflect sequela of injury or inflammation. JOB #: [id number] Final Signed by: Artur Felix MD Signed (Electronic Signature): 03/22/2024 3:57 pm Social History Social History Type Response Tobacco Never tobacco user T obacco Use:. Sex Patient Care team information Care Team Personnel Name: MATT BROOKE NP Position: No Access Member Role: Primary Care Physician Address: Address: [address], [place] [address] Care Team Related Persons Name: MEDARDO MARTINS Address: Home [address] [place], [place] [id number] [facility]
--- OUTSIDE RECORDS SUMMARY | 2024-04-18 12:18 | XMS_ITS | Continuity of Care Document ---
Author Name Unknown Organization [facility] Ambulatory Clinics Address [address] [place] [address] Care Team Providers Care Business Developer Name Role Phone MATT BROOKE NP Primary Care Physician Encounter [facility] NBR [id number] Date(s): 03/09/24 - 03/09/24 [facility] Ambulatory Clinics [address] [place] [address] [place] Encounter Diagnosis Pain of right patella(Discharge Diagnosis) - 03/09/24 Discharge Disposition: Home or Self Care Attending Physician: Tom Perkins MD Referring Physician: DIANA CARSON APRN Allergies, Adverse Reactions, Alerts Substance Reaction Severity Status codeine Nausea and vomiting Severe Active Assessment and Plan Extracted from: Title:Office Visit Note Author:Tom Perkins MD Date:03/09/24 1.??Pain of right patella??M 25.561 ??With??chronic patellofemoral pain??I discussed the diagnosis at length with the patient??and told her certainly this is a difficult problem??unfortunately??my??go to??operation for this??problem??would be a lateral retinacular lengthening but with the release this would not be an option.?? I do think however before we discussed further treatment we should get an MRI of the patient's knee as some of her symptoms are somewhat atypical??and has been??so chronic.?? Is complaining of a lot of posterior pain.?? Only if the MRI look good??I would strongly suggest the patient try a course of hyaluronic acid??combined with another round of physical therapy specifically working on hip strengthening.?? If none of this was effective??I would discuss with the patient??a tibial tubercle osteotomy??although again this would be our last resort. Future Scheduled Tests Radiology* MRI Knee w/o Contrast Right 03/09/24 Medications Multi Vitamin+ 0 Refill(s) Start Date: 03/09/24 Status: Ordered Problem List Condition Confirmation Course Effective Dates Status Health St atus Informant Pain of right patella Confirmed Active Vital Signs Most recent to oldest [Reference Range]: 1 Peripheral Pulse Rate [60-100 bpm] 78 bp m (03/09/24 10:52 AM) Blood Pressure [90-140/60-90 mmHg] 122/6 6mmHg (03/09/24 10:52 AM) Mean Arterial Pressure, Cuff [65-140 mmH g] 85 mmHg (03/09/24 10:52 AM) Weight 62.14 kg (03/09/24 10:52 AM) Weight Measured (lbs) 136.995 lb (03/09/24 10:52 AM) Weight Dosing 62.140 kg (03/09/24 10:52 AM) Height 162.56 cm (03/09/24 10:52 AM) Height/Length Measured (inches) 64 inch (03/09/24 10:52 AM) BSA Measured 1.68 m2 (03/09/24 10:52 AM) Body Mass Index 23.51 kg/m2 (03/09/24 10:52 AM) Social History Social History Type Response Tobacco Never tobacco user T obacco Use:. 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 The patient says the pain began when she was in high school and was doing a lot of running,??she ultimately went on??20 years ago to have??an arthroscopy with lateral release but this was of no benefit.?? She says the pain has continued and recently has gotten worse??she now not only has??ant erior pain but has a lot of posterior pain she gets popping and catching in her knee??she has occasional giving way??she has difficulty with stairs she has difficulty squatting or kneeling,??she has difficulty getting up from a seated position??she also has pain if she just sits for long periods oftime.?? She went to urgent care recently was given a brace??which she thinks may of given her some benefit.?? She has had therapy in the past but no recent therapy. Physical Exam Vitals & Measurements HR:??78??(Peripheral)?? BP:??122/66?? SpO2:??98%?? HT:??162.56??cm?? WT:??62.14??kg?? BMI:??23.51?? Pain Score:??5?? BSA:??1.68?? Review of studies: X-rays of the??right knee reviewed??and are negative??although we do not have a merchant view today. ??I did independently review these x-rays. ?? Both knees were examined. The patella position, tracking and mobility were assessed. ??Patella tendon, fat pad, and tibial tubercle were assessed for swelling and tenderness. ??Excursion of the patella both in the medial and lateral planes were appreciated. ?Localized tenderness: With the knee flexed a [id number]-xzg-[id number] palpation was performed. ??Starting with the quad tendon, the knee was examined down along the ileo-tibial band. ??The lateral joint line, the proximal tib-fib joint, Gerdy's tubercle, tibial tubercle, patellar tendon, distal patella, Pez bursa, the medial joint line collateral ligaments, and the retropatellar area. Ligament exam: A full ligament exam was performed. ??Both the cruciate and collateral ligaments were appreciated of the knee. ??Any rotary instability was then checked as patient can tolerate. ??Any scars, previous surgery as well as numbness were noted. ??The popliteal area was checked for masses tenderness and swelling. ?? Focused exam of the right knee shows a full range of motion there is??well- healed arthroscopy incisions??there is a??fairly loose??lateral retinaculum secondary to the release, there is significant retropatella tenderness, positive patella grind,??mild to moderate medial joint line tenderness,??there is no instability, there is about??3 to 4 degrees of recurvatum. Assessment/Plan 1.??Pain of right patella??M25.561 ??With??chronic patellofemoral pain??I discussed the diagnosis at length with the patient??and toldher certainly this is a difficult problem??unfortunately??my??go to??operation for this??problem??would be a lateral retinacular lengthening but with the release this would not be an option.?? I do think however before we discussed further treatment we should get an MRI of the patient's knee as some of her symptoms are somewhat atypical??and has been??so chronic.?? Is complaining of a lot of posterior pain.?? Only if the MRI look good??I would strongly suggest the patient try a course of hyaluronic acid??combined with another round of physical therapy specifically working on hip strengthening.?? If none of this was effective??I would discuss with the patient??a tibial tubercle osteotomy??although again this would be our last resort. Problem List/Past Medical History Ongoing Pain of right patella Historical No qualifying data Medications Multi Vitamin+ Allergies codeine??(Nausea and vomiting) Social History Electronic Cigarette/Vaping Electronic Cigarette Use: Never. Tobacco Never tobacco user Tobacco Use:. Electronically Signed on 03/09/2024 11:28 EDT Tom Perkins MD Patient Care team information Care Team Personnel Name: MATT BROOKE NP Position: No Access Member Role: Primary Care Physician Address: Address: [address] [place] [address]- Care Team Related Persons Name: MARTINSMEDARDO Chand Address: Home [address]
--- OUTSIDE RECORDS SUMMARY | 2024-04-18 12:18 | XMS_ITS | Continuity of Care Document ---
Author Name Unknown Organization [facility] Ambulatory Clinics Address [address] [place] [address] Care Team Providers Care Detail Drafter Name Role Phone MATT BROOKE NP Primary Care Physician Encounter [facility] NBR [id number] Date(s): 03/23/24 - 03/23/24 [facility] Ambulatory Clinics [address] [place] [address] [place] Encounter Diagnosis Pain of right patella(Discharge Diagnosis) - 03/23/24 Discharge Disposition: Home or Self Care Attending Physician: Tom Perkins MD Referring Physician: MATT BROOKE NP Allergies, Adverse Reactions, Alerts Substance Reaction Severity Status codeine Nausea and vomiting Severe Active Assessment and Plan Extracted from: Title:Office Visit Note Author:Tom Perkins MD Date:03/23/24 1.??Pain of right patella??M 25.561 ??Patient with continued patella pain, patient is understandably??very distressed about her continued discomfort??and lack of findings on the MRI.?? I gone over??all the options with the patient, really??the only things I think we have not tried yet??or??hyaluronic acid which I have had success with in the past for similar problems especially with chondral damage,??and then there is a question of tibial tubercle osteotomy.?? The problem with the osteotomy in this patient is at??the damage and??patella looks to be more medial??and some concerned that??I would actually be loading this facet??with a TTO.?? Given this we will start with a hyaluronic acid and 1 round of physical therapy??and I am hopeful this will at least improve the symptoms. Medications Multi Vitamin+ 0 Refill(s) Start Date: 03/09/24 Status: Ordered Problem List Condition Confirmation Course Effective Dates Status Health St atus Informant Pain of right patella Confirmed Active Vital Signs Most recent to oldest [Reference Range]: 1 Peripheral Pulse Rate [60-100 bpm] 66 bp m (03/23/24 1:34 PM) Blood Pressure [90-140/60-90 mmHg] 110/6 0mmHg (03/23/24 1:34 PM) Mean Arterial Pressure, Cuff [65-140 mmH g] 77 mmHg (03/23/24 1:34 PM) Height 162.86 cm (03/23/24 1:34 PM) Height/Length Measured (inches) 64.12 in (03/23/24 1:34 PM) Social History Social History Type Response Tobacco Never tobacco user T obacco Use:. Sex Physician Outpatient Note * Tom Perkins MD: PERFORM Event Display: Office Clinic Note Physician Authored Date: [id number] JEROME MARTINS :1985 Age:38 years Sex:Female Visit Date:03/23/2024 Primary Care Physician: MATT BROOKE NP A Chief Complaint Right knee (MRI) History of Present Illness Jerome returns today with the MRI of her knee, she has had no change in her symptoms??she says??anybent knee activity causes her severe pain??she try to get a massage the other day but cannot lie under??belly,??she is having difficulty driving.?? She has had a lateral release many years ago arthroscopically that did not help her. Physical Exam Vitals & Measurements HR:??66??(Peripheral)?? BP:??110/60?? SpO2:??99%?? HT:??162.86??cm?? Pain Score:??5?? Review of studies: MRI the patient's??right knee is reviewed??and shows the meniscus are intact??ligaments are intact,??there is a??bit of??chondral loss from the medial facet of the patella. ?? Examination??of the right knee today shows a full range of motion there is a very small effusionthere is retropatellar tenderness, positive patella grind,??negative Janice exam, minimal joint line tenderness. Assessment/Plan 1.??Pain of right patella??M25.561 ??Patient with continued patella pain, patient is understandably??very distressed about her continued discomfort??and lack of findings on the MRI.?? I gone over??all the options with the patient, really??the only things I think we have not tried yet??or??hyaluronic acid which I have had success with in the past for similar problems especially with chondral damage,??and then there is a question oftibial tubercle osteotomy.?? The problem with the osteotomy in this patient is at??the damage and??patella looks to be more medial??and some concerned that??I would actually be loading this facet??with a TTO.?? Given this we will start with a hyaluronic acid and 1 round of physical therapy??and I am hopeful this will at least improve the symptoms. Problem List/Past Medical History Ongoing Pain of right patella Historical No qualifying data Medications Multi Vitamin+ Allergies codeine??(Nausea and vomiting) Social History Electronic Cigarette/Vaping Electronic Cigarette Use: Never. Tobacco Never tobacco user Tobacco Use:. Electronically Signed on 03/23/2024 13:54 EDT Tom Perkins MD Patient Care team information Care Team Personnel Name: MATT BROOKE NP Position: No Access Member Role: Primary Care Physician Address: Address: [address] [place], [place] [id number] [place] [address] Care Team Related Persons Name: MEDARDO MARTINS Address: Home [address] [place], [place] [id number] [facility]
--- OUTSIDE RECORDS SUMMARY | 2024-04-18 12:18 | XMS_ITS | Continuity of Care Document ---
Author Name Unknown Organization [facility] Ambulatory Clinics Address [address] [place] [address] Care Team Providers Care Pattern Data Operator Name Role Phone MATT BROOKE NP Primary Care Physician [phone] Encounter [facility] NBR [id number] Date(s): 04/02/24 - 04/02/24 [facility] Ambulatory Clinics [address] [place] [address]- [place] Discharge Disposition: Home Allergies, Adverse Reactions, Alerts Substance Reaction Severity Status codeine Nausea and vomiting Severe Active Medications Multi Vitamin+ 0 Refill(s) Start Date: 03/09/24 Status: Ordered Problem List Condition Confirmation Course Effective Dates Status Health St atus Informant Pain of right patella Confirmed Active Social History Social History Type Response Tobacco Never tobacco user T obacco Use:. Sex Patient Care team information Care Team Personnel Name: MATT BROOKE NP Position: No Access Member Role: Primary Care Physician Address: Address: [address] [place], [place] [address] Care Team Related Persons Name: MEDARDO MARTINS Address: Home [address] [place], [place] [id number] [facility]
--- OUTSIDE RECORDS SUMMARY | 2024-04-18 12:18 | XMS_ITS | Continuity of Care Document ---
Author Name Unknown Organization [facility] Ambulatory Clinics Address [address] [place] [address] Care Team Providers Care Financial Representative Name Role Phone MATT BROOKE NP Primary Care Physician Encounter [facility] NBR [id number] Date(s): 03/09/24 - 03/09/24 [facility] Ambulatory Clinics [address] [place] [address]- [place] Discharge Disposition: Home Allergies, Adverse Reactions, Alerts Substance Reaction Severity Status codeine Nausea and vomiting Severe Active Assessment and Plan Future Scheduled Tests Radiology* MRI Knee w/o [...] Member Role: Primary Care Physician Address: Address: [address] [place] [id number] Care Team Related Persons Name: MEDARDO MARTINS Address: Home [address] [place] [id number] [facility]
[2024-04-18 21:52] LABS: Rheumatoid Factor <8.6 IU/mL (<12.0)
[2024-04-19 08:42] LABS: Cyclic Citrullinated Peptide <2.5 U/mL (<5.0)
[2024-04-20 14:11] LABS: ANA Interpretation Positive (Negative); ANA Titer Pattern 1:320 Homogeneous
[2024-04-20 22:22] LABS: Baker's Yeast, IgE <0.10 kU/L (<0.70); Banana, IgE <0.10 kU/L (<0.70); Barley, IgE <0.10 kU/L (<0.70); Beef IgE <0.10 kU/L (<0.70); Black/White Pepper IgE <0.10 kU/L (<0.70); Broccoli IgE <0.10 kU/L (<0.70); Cacao/Cocoa, IgE <0.10 kU/L (<0.70); Cinnamon, IgE <0.10 kU/L (<0.70); Corn-Food IgE <0.10 kU/L (<0.70); Egg Whole IgE <0.10 kU/L (<0.70); Milk, IgE 0.24 kU/L (<0.70); Onion, IgE <0.10 kU/L (<0.70); Soybean IgE <0.10 kU/L (<0.70); Strawberry, IgE <0.10 kU/L (<0.70); White Potato, IgE <0.10 kU/L (<0.70)
== END 2024-04-18 12:17 | disposition home or self-care (01) ==
LOC: LBO 12:16
PROVIDERS: PCP Nurse Practitioner; Visit Provider Nurse Practitioner
DX: M25.50 Pain in unspecified joint (principal); R53.83 Other fatigue; R19.7 Diarrhea, unspecified
CPT/HCPCS: 36415; 86003; 86200; 86038; 86431

== ENCOUNTER → 2024-04-20 00:37 | Outpatient (CLI) | payer BC, SELFPAY ==
--- NOTE | 2024-04-20 08:13 | DI.RAD_ITS ---
Exam(s) XR HAND LT COMPLETE EXAM: XR HAND LT COMPLETE CLINICAL HISTORY: hand pain BHARAT, M79.641, M79.642. TECHNIQUE: 2D digital imaging was performed. COMPARISON: No exams were available for comparison FINDINGS: 3 views No evidence of fracture nor subluxation or abnormal soft tissue calcifications. Bone density is norm al. No osseous lesions and no erosions evident. No radiopaque foreign bodies. First carpometacarpal joint appears unremarkable. There is a single para-articular soft tissue calcification off the medial aspect of the PIP joint of the 2nd-index finger, this measuring approximately 1 mm. IMPRESSION: Single para-articular soft tissue calcification adjacent to the PIP joint of the 2nd-index finger. No osseous lesions nor erosions. Bone density is normal. No osteoarthritic degenerative changes. DATA REPOSITORY: RADIATION DOSE DELIVERED:
--- NOTE | 2024-04-20 08:14 | DI.RAD_ITS ---
Exam(s) XR HAND RT COMPLETE EXAM: XR HAND RT COMPLETE CLINICAL HISTORY: hand pain BHARAT, M79.641, M79.642. TECHNIQUE: 2D digital imaging was performed. COMPARISON: CR XR HAND LT COMPLETE from 04/20/2024 FINDINGS: 3 views No evidence of fracture or subluxation. No osseous lesions nor erosions. No para-articular calcific ations evident. Bone density is normal. First carpometacarpal joint appears unremarkable. IMPRESSION: No significant osseous findings in the right hand. DATA REPOSITORY: RADIATION DOSE DELIVERED:
== END ==
PROVIDERS: PCP Nurse Practitioner; Visit Provider Nurse Practitioner
DX: M79.641 Pain in right hand (principal); M79.642 Pain in left hand
CPT/HCPCS: 73130

== ENCOUNTER 2024-06-20 14:20 | Outpatient (CLI) | payer SELFPAY ==
[2024-06-20 09:37] LABS: HCG Quant, Pregnancy 1 mIU/mL (1-3); TSH (W/Ref FT4) 0.61 uIU/mL (0.36-3.74)
[2024-06-20 18:12] LABS: Estradiol 48 pg/mL (See Note)
[2024-06-20 18:29] LABS: Progesterone 0.3 ng/mL (See Table)
[2024-06-20 18:42] LABS: FSH 11.8 mIU/mL (See Note); LH 7.6 mIU/mL (See Note)
== END 2024-06-20 14:21 | disposition home or self-care (01) ==
LOC: LBO 14:21
PROVIDERS: PCP Nurse Practitioner; Visit Provider Obstetrics & Gynecology Gynecology
DX: Z31.7 Encounter for procreative management and counseling for gestational carrier (principal)
CPT/HCPCS: 36415; 82670; 83001; 83002; 84144; 84443; 84702

== ENCOUNTER 2024-06-26 02:34 | Outpatient (CLI) | payer SELFPAY ==
[2024-06-26 18:27] LABS: Estradiol 1083 pg/mL (See Note)
[2024-06-26 18:32] LABS: Progesterone <0.2 ng/mL (See Table)
[2024-06-26 18:59] LABS: LH 28.5 mIU/mL (See Note)
== END 2024-06-26 02:35 | disposition home or self-care (01) ==
PROVIDERS: PCP Nurse Practitioner; Visit Provider Obstetrics & Gynecology Gynecology
DX: Z31.7 Encounter for procreative management and counseling for gestational carrier (principal)
CPT/HCPCS: 36415; 82670; 83002; 84144

== ENCOUNTER 2024-06-28 10:07 | Outpatient (CLI) | payer SELFPAY ==
[2024-06-28 18:28] LABS: Estradiol 1811 pg/mL (See Note)
[2024-06-28 18:35] LABS: Progesterone <0.2 ng/mL (See Table)
[2024-06-28 18:41] LABS: LH 12.6 mIU/mL (See Note)
== END 2024-06-28 10:08 | disposition home or self-care (01) ==
LOC: LBO 10:07
PROVIDERS: Obstetrics & Gynecology Gynecology; PCP Nurse Practitioner; Visit Provider Obstetrics & Gynecology Reproductive Endocrinology
DX: Z31.7 Encounter for procreative management and counseling for gestational carrier (principal)
CPT/HCPCS: 82670; 83002; 84144

== ENCOUNTER 2024-07-09 09:36 | Outpatient (CLI) | payer SELFPAY ==
[2024-07-09 07:53] LABS: HCG Quant, Pregnancy 1 mIU/mL (1-3)
[2024-07-09 17:36] LABS: Estradiol 2377 pg/mL (See Note); Progesterone 37.3 ng/mL (See Table)
== END 2024-07-09 09:37 | disposition home or self-care (01) ==
LOC: LBO 09:38
PROVIDERS: PCP Nurse Practitioner; Visit Provider Obstetrics & Gynecology Gynecology
DX: Z31.41 Encounter for fertility testing (principal)
CPT/HCPCS: 36415; 82670; 84144; 84702

== ENCOUNTER 2024-07-13 09:51 | Outpatient (CLI) | payer BC, SELFPAY ==
[2024-07-13 08:10] LABS: HCG Quant, Pregnancy 20 mIU/mL (1-3)
== END 2024-07-13 09:52 | disposition home or self-care (01) ==
LOC: LBO 09:55
PROVIDERS: PCP Nurse Practitioner; Visit Provider Obstetrics & Gynecology Reproductive Endocrinology
DX: Z32.00 Encounter for pregnancy test, result unknown (principal)
CPT/HCPCS: 36415; 84144; 84702

== ENCOUNTER 2024-07-16 12:59 | Outpatient (CLI) | payer BC, SELFPAY ==
[2024-07-16 08:18] LABS: HCG Quant, Pregnancy 35 mIU/mL (1-3); TSH 0.42 uIU/Ml (0.36-3.74)
[2024-07-16 18:09] LABS: Estradiol 2183 pg/mL (See Note); Progesterone 26.2 ng/mL (See Table)
== END 2024-07-16 13:00 | disposition home or self-care (01) ==
LOC: LBO 12:59
PROVIDERS: PCP Nurse Practitioner; Visit Provider Obstetrics & Gynecology Reproductive Endocrinology
DX: Z32.01 Encounter for pregnancy test, result positive (principal)
CPT/HCPCS: 36415; 82670; 84144; 84443; 84702

== ENCOUNTER 2024-07-18 09:03 | Outpatient (CLI) | payer SELFPAY ==
[2024-07-18 07:52] LABS: HCG Quant, Pregnancy 99 mIU/mL (1-3)
[2024-07-18 18:31] LABS: Estradiol 2637 pg/mL (See Note)
[2024-07-18 19:32] LABS: LH <0.3 mIU/mL (See Note)
== END 2024-07-18 09:04 | disposition home or self-care (01) ==
LOC: LBO 09:05
PROVIDERS: PCP Nurse Practitioner; Visit Provider Obstetrics & Gynecology Gynecology
DX: Z31.41 Encounter for fertility testing (principal); Z31.7 Encounter for procreative management and counseling for gestational carrier
CPT/HCPCS: 36415; 82670; 83002; 84144; 84702

== ENCOUNTER 2024-07-20 07:37 | Outpatient (CLI) | payer SELFPAY ==
[2024-07-20 07:57] LABS: TSH (W/Ref FT4) 0.19 uIU/mL (0.36-3.74)
[2024-07-20 08:04] LABS: HCG Quant, Pregnancy 193 mIU/mL (1-3)
[2024-07-20 08:15] LABS: FREE T4 1.29 ng/dL (0.76-1.46)
[2024-07-20 22:04] LABS: Estradiol 2166 pg/mL (See Note); Progesterone 32.4 ng/mL (See Table)
[2024-07-23 09:32] LABS: LH <0.3 mIU/mL (See Note)
== END 2024-07-20 07:38 | disposition home or self-care (01) ==
LOC: LBO 07:37
PROVIDERS: Obstetrics & Gynecology; Obstetrics & Gynecology Gynecology; PCP Nurse Practitioner; Visit Provider Obstetrics & Gynecology Reproductive Endocrinology
DX: Z31.7 Encounter for procreative management and counseling for gestational carrier; Z32.01 Encounter for pregnancy test, result positive
CPT/HCPCS: 36415; 82670; 83002; 84144; 84439; 84443; 84702

== ENCOUNTER 2024-07-23 14:03 | Outpatient (CLI) | payer SELFPAY ==
[2024-07-23 12:01] LABS: HCG Quant, Pregnancy 524 mIU/mL (1-3)
[2024-07-23 18:46] LABS: Estradiol 4125 pg/mL (See Note); Progesterone 45.3 ng/mL (See Table)
[2024-07-23 18:56] LABS: LH <0.3 mIU/mL (See Note)
== END 2024-07-23 14:04 | disposition home or self-care (01) ==
LOC: LBO 14:04
PROVIDERS: Obstetrics & Gynecology Gynecology; PCP Nurse Practitioner; Visit Provider Obstetrics & Gynecology Reproductive Endocrinology
DX: Z32.01 Encounter for pregnancy test, result positive (principal); Z31.7 Encounter for procreative management and counseling for gestational carrier; O09.00 Supervision of pregnancy with history of infertility, unspecified trimester
CPT/HCPCS: 36415; 82670; 83002; 84144; 84702

== ENCOUNTER 2024-07-27 08:56 | Outpatient (CLI) | payer SELFPAY ==
[2024-07-27 09:49] LABS: HCG Quant, Pregnancy 737 mIU/mL (1-3)
[2024-07-27 17:58] LABS: Estradiol 1558 pg/mL (See Note)
[2024-07-27 18:00] LABS: Progesterone 46.5 ng/mL (See Table)
== END 2024-07-27 08:57 | disposition home or self-care (01) ==
LOC: LBO 08:56
PROVIDERS: PCP Nurse Practitioner; Visit Provider Obstetrics & Gynecology Gynecology
DX: Z31.7 Encounter for procreative management and counseling for gestational carrier (principal); Z32.01 Encounter for pregnancy test, result positive
CPT/HCPCS: 36415; 82670; 84144; 84702

== ENCOUNTER 2024-08-03 13:16 | Outpatient (CLI) | payer SELFPAY ==
[2024-08-03 12:33] LABS: HCG Quant, Pregnancy 1175 mIU/mL (1-3)
[2024-08-03 18:00] LABS: Estradiol 2130 pg/mL (See Note); Progesterone 45.5 ng/mL (See Table)
== END 2024-08-03 13:17 | disposition home or self-care (01) ==
LOC: LBO 13:16
PROVIDERS: Obstetrics & Gynecology Gynecology; PCP Nurse Practitioner; Visit Provider Obstetrics & Gynecology Reproductive Endocrinology
DX: Z32.01 Encounter for pregnancy test, result positive (principal); Z31.7 Encounter for procreative management and counseling for gestational carrier
CPT/HCPCS: 36415; 82670; 84144; 84702

== ENCOUNTER 2024-08-04 11:22 | Outpatient (CLI) | payer BC, SELFPAY ==
--- NOTE | 2024-08-04 11:42 | W.PM.HP.N ---
Date of service: 08/04/24 Time of Service: 11:43 Assessment and Plan Assessment and plan (1) Encounter for procreative management and counseling for person acting as gestational surrogate: Status: Acute Assessment and plan: Pt has undergone two successful single embryo transfers as gestational carrier thru [facility]. One transfer resulted in SAB and subsequent D&C and this most recent transfer has resulted in inappropriate rise in hCG adn empty uterus. Nl adnexa. No other symptoms suggestive of ectopic . However with empty uterine cavity and current hCG 1175 mIU/ml I have advised pt to have Methotrexate 50mg/m2 to treat with risk for an ectopic . She has consented to the treatment. Plan is to repeat hCG in 1 week. (2) Miscarriage: Status: Acute Assessment and plan: As above. History of Present Illness History of Present Illness Chief Complaint: abnormally rising hCG, SAB, possible ectopic Narrative: Pt is a 39 yo female gestational carrier who underwent transfer of a single embryo at [facility] in late June 2024. She has been followed with serial hCGs which unfortunately have shown an abnormal rise. 07/13/24 hC 07/16/24 hCG; 35 07/18/24 hC 07/20/24 hC 07/23/24 hC 07/27/24 hC 08/03/24 hC Serial TV OB u/s performed with the following results: 07/23/24: ES 7mm no GS. nl appearing adnexa 07/27/24: ? 6mm GS with 3mm YS. nl appearing adnexa 08/03/24: 9mm ES. No IUP. nl appearing adnexa Review of Systems Narrative: No report of bleeding, cramping, abdominal pain or N/V. All systems reviewed & are unremarkable except as noted in HPI and below Psychiatric Psychiatric: Reports system reviewed and no additional complaints, except as documented Comments: saddened by the unsuccessful . pt has been counseled regarding treatment plan. PFSH All Active Problems (Updated 07/20/24 @ 14:21 by Franchesca Nunez MD) Positive test (Acute) Right patellofemoral syndrome (Acute) 06/27/24 Orthopaedics and pt will be seeing Dr Guillen. Chondromalacia patellae, right knee (Acute) Pain of right patella (Acute ~03/2024) 03/23/24 [facility] Orthopedics, Dr Tripathi Post-COVID chronic cough (Acute) Encounter for immunization (Acute) Encounter for procreative management and counseling for gestational carrier (Acute) Internal derangement of left knee (Acute) Grief associated with loss of fetus (Acute) Hx of dilation and curettage (Acute) 04/21/2023: D&C 8w5d EGA Rh negative state in antepartum period (Acute) Miscarriage (Acute) state, gestational carrier (Acute) Left medial knee pain (Acute) Routine medical exam (Acute) Instability of both shoulder joints (Acute) Patient desires (Acute) 04/2023 gestational carrier. Working with ANITA [place], [place] Labral tear of shoulder (Acute) Suspected Scapular dyskinesis (Acute) Spasm of thoracic back muscle (Acute) Injury of right elbow region (Acute 08/19/20) Encounter for procreative management and counseling for person acting as gestational surrogate (Acute) Umbilical hernia (Acute) Surgical consult [facility] in Surgery 08/18/2015: Small hernia (umbilical vs. low epigastric), recommend surgery at pt convenience Atopic dermatitis (Chronic) Allergic rhinitis (Chronic) Medical History Migraine COVID (~12/30/21) 10/13/23 Chronic daily headache Onset 06/29/18. assoc with hyperemesis. MRA/MRI of brain nl. Occipital nerve block 06/29/18 with temporary improvement. Gastroesophageal reflux disease Hyperemesis affecting , antepartum From 9 weeks until approximately 16 weeks. Patient remains nauseated but without emesis. 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 [facility] [place] [place]. Knee Surgery Foot Arthrodesis Colposcopy Cervix With Loop Electrode Conization Biopsy of breast (12/22/16) Benign. [facility]. Family History Paternal Grandfather Neoplasm Melanoma Colon CA dx'ed 70s Mother Neoplasm Melanoma Depression Maternal Grandfather Colon cancer Pancreatic cancer Maternal Grandmother Depression Social History Smoking/Tobacco Use Status: Never Second Hand Exposure: No Smoking risk assessment performed?: Yes Alcohol Intake: never Drug use: Never Substance use type: does not use Adopted: No Caregiver/Support person: No Foster care: No Household members: spouse, children and other Details: Javed Doe, Echo Housing: house Number of Children: 2 Communication Needs: Corrective Lenses Education Level: master's degree Do you need help understanding health information?: Never 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 [employer] Pets and animals: Yes (Chickens and ducks) Pets and animals: farm animals Sexually active: Yes Do you think of yourself as: straight/heterosexual Current gender identity: female What is your relationship status?: How often do you talk on the phone with friends or family?: three or more times per week How often do you get together with friends or relatives?: once per week Do you belong to any clubs or organized social groups?: no Panel score (0-1 are the most socially isolated patients): 2 What type of physical activity do you participate in: walking and running Duration: 15-30 minutes/day Frequency: 3-4 times per week Elizabeth/Mu-Ism: Mormonism Special elizabeth needs: No Seatbelt use: always Helmet use: Yes Helmet use: always Drive intox or ride w/intox cdl dedicated truck driver: No Do you feel safe at home: Yes Do you feel safe in your relationship?: Yes Female Reproductive History Menstrual control method: none and condoms History History 4 Para 2 Hx # Term Pregnancies 2 Multiple births 0 Hx # Pregnancies 0 Ectopic pregnancies 1 AB induced 0 Hx Number of Living Children 2 AB spontaneous 1 Past Pregnancies Del. Date GA/Weeks # Preg Succ Route Wgt Sex Labor Lgth Anesthesia Location Prov Complic 12/24/18 39 No vaginal 7 lb 10 oz Male Maria Antonia Nieves Delivery Date: 12/24/18 Last Updated by: MD Rodney Jurado severe hyperemesis Meds Allergies and Home Medications Allergies Allergy/AdvReac Type Severity Reaction Status Date / Time hydrocodone AdvReac Unknown Vomiting Verified 06/06/24 16:34 hydrocodone bitartrate (From AdvReac Unknown Vomiting Verified 06/06/24 16:34 Vicodin) Home Medications ?Medication ?Instructions ?Recorded ?Confirmed ?Type vits no.126-ferrous fum 1 tab PO DAILY 05/13/23 06/06/24 History 28 mg iron-folic acid 800 mcg tablet (Classic ) Exam Const General: no acute distress Nutritional Appearance: average body habitus Orientation: alert, awake and oriented x3 Other: PE deferred. Pt will have Methotrexate today for SAB of undetermined location. Time Spent Time spent with Patient: <40 minutes Time was spent: preparing to see the patient(eg.review tests), obtaining and/or reviewing separately otained hiistory, ordering medications,tests, procedures, indepentently interpreting results and counseling the patient
== END 2024-08-04 13:02 ==
LOC: BCD 11:25 → OBS 11:29
PROVIDERS: PCP Nurse Practitioner; Visit Provider Obstetrics & Gynecology Gynecology
DX: Z31.7 Encounter for procreative management and counseling for gestational carrier (principal); O03.9 Complete or unspecified spontaneous abortion without complication
CPT/HCPCS: 96372; J9260

== ENCOUNTER 2024-08-07 21:48 | Outpatient (REF) | payer BC, SELFPAY ==
[2024-08-07 23:06] LABS: TSH (W/Ref FT4) < 0.01 uIU/mL (0.36-3.74)
[2024-08-07 23:28] LABS: FREE T4 3.32 ng/dL (0.76-1.46)
[2024-08-08 17:52] LABS: T3,Free 12.5 pg/mL (2.8-5.3)
[2024-08-08 19:02] LABS: Thyroperoxidase Antibody <28 U/mL (<=60)
== END 2024-08-07 21:49 | disposition home or self-care (01) ==
LOC: LBN 21:48
PROVIDERS: PCP Nurse Practitioner; Visit Provider Nurse Practitioner Family
DX: R94.6 Abnormal results of thyroid function studies (principal)
CPT/HCPCS: 84439; 84443; 84481; 86376

== ENCOUNTER 2024-08-14 00:45 | Outpatient (CLI) | payer BC, SELFPAY ==
--- NOTE | 2024-08-14 | DI.US_ITS ---
Exam(s) US THYROID EXAM: US THYROID CLINICAL HISTORY: ABNL THYROID FUNCTION TESTS,R94.6. TECHNIQUE: Ultrasound thyroid performed using standard protocol. COMPARISON: No exams were available for comparison FINDINGS: ISTHMUS: 7 mm, thickened, heterogeneous echotexture RIGHT LOBE: Size: 3.6 x 2.0 x 1.5 cm Echogenicity: Diffusely heterogeneous Vascularity: Hyperemia Nodules: None. LEFT LOBE: Size: 3.4 x 1.7 x 1.5 cm Echogenicity: Diffusely heterogeneous echotexture. Vascularity: Normal hyperemia Nodules: None. OTHER FINDINGS: No suspicious adenopathy. No evidence of abscess or fluid collection. IMPRESSION: Diffusely heterogeneous and hyperemic thyroid gland. The findings could indicate thyroiditis. DATA REPOSITORY:
[2024-08-14 13:35] LABS: HCG Quant, Pregnancy 8 mIU/mL (1-3)
[2024-08-14 22:42] LABS: Estradiol 49 pg/mL (See Note)
== END 2024-08-14 01:05 ==
LOC: DI 00:45
PROVIDERS: Obstetrics & Gynecology Gynecology; PCP Nurse Practitioner; Visit Provider Nurse Practitioner Family
DX: O03.9 Complete or unspecified spontaneous abortion without complication (principal); Z32.01 Encounter for pregnancy test, result positive; R94.5 Abnormal results of liver function studies
CPT/HCPCS: 36415; 76536; 82670; 84702

== ENCOUNTER 2024-08-17 09:37 | Outpatient (CLI) | payer BC, SELFPAY ==
[2024-08-17 08:34] LABS: HCG Quant, Pregnancy 3 mIU/mL (1-3); TSH (W/Ref FT4) < 0.01 uIU/mL (0.36-3.74)
[2024-08-17 09:03] LABS: FREE T4 3.39 ng/dL (0.76-1.46)
[2024-08-17 18:42] LABS: T3, Total 466 ng/dL (97-169)
[2024-08-20 14:38] LABS: Thyrotropin Receptor Ab <1.10 IU/L
== END 2024-08-17 09:38 | disposition home or self-care (01) ==
LOC: LBO 09:42
PROVIDERS: PCP Nurse Practitioner; Visit Provider Obstetrics & Gynecology Gynecology
DX: R79.89 Other specified abnormal findings of blood chemistry (principal); O03.9 Complete or unspecified spontaneous abortion without complication
CPT/HCPCS: 36415; 84235; 84439; 84443; 84480; 84702

== ENCOUNTER 2024-09-06 11:44 | Emergency (ER) | payer BC, SELFPAY ==
[2024-09-06] VITALS (56 sets, daily range): BP systolic 85–141; BP diastolic 36–83; PULSE 48–73; RESP 11–22; TEMP 36.4–36.6; O2SAT 56–100
[2024-09-06] MEDS: Ketorolac 30 MG/ML VIAL IM (13:00)
[2024-09-06] MEDS: diazePAM 5 MG TAB PO (13:01)
[2024-09-06] MEDS: Bupivacaine 0.5% Pres-Free 30 ML VIAL (15:45)
--- NOTE | 2024-09-06 15:47 | ED.GENADUL_ITS ---
Discharge Plan Discharge Details Chief Complaint: Nk/Back Pain Primary Care Provider: Rebekah Greco ED Provider: Dinh Mcfadden Home Meds and New Rx's Prescriptions: No Action No Known Home Meds [facility] General Mode of arrival: ambulatory . Date/Time Provider Initiated Documentation: 09/06/24 12:14 . Limitations to Documentation: no limitations . Information obtained by: patient . HPI Narrative: 39-year-old female presents today with chief complaint of pain in her right neck radiating into her upper back and shoulder. Pain started 2 days ago in the middle of the night. Patient denies associated trauma. Patient has had similar in the past attributed to neck spasm that improved with Flexeril. Patient notes she did take Flexeril without significant relief. Today pain is worse. She went to her chiropractor who performed manual traction which did seem to improve her symptoms briefly. Symptoms returned when manipulation was stopped. Pain is localized to the right neck and upper back to her shoulder. Pain is worse with any movement of her neck. No associated fever. No associated headache. No focal numbness or weakness. No associated rash. Related Data Home Medications ?Medication ?Instructions ?Recorded ?Confirmed Unknown [No Known Home Meds] 09/06/24 09/06/24 Allergies Allergy/AdvReac Type Severity Reaction Status Date / Time hydrocodone AdvReac Unknown Vomiting Verified 09/06/24 11:52 hydrocodone bitartrate (From AdvReac Unknown Vomiting Verified 09/06/24 11:52 Vicodin) General Stated Complaint: Nk/Back Pain SATNMA: 4 Review of Systems All systems reviewed & are unremarkable except as noted in HPI and below Constitutional Constitutional: Denies fever(s) Musculoskeletal Musculoskeletal: Reports as per HPI Exam Const General: cooperative HENMT Head: normocephalic and atraumatic Mouth: moist mucous membranes Eyes Conjunctivae: normal conjunctivae Sclera: normal sclerae Neck Neck: no lymphadenopathy, trachea midline and supple Other: ttp right cervical Resp Auscultation: clear to auscultation bilaterally, no rales, no rhonchi and no wheezes Cardio Rate: regular rate and not tachycardic Rhythm: regular rhythm Back/Spine/Pelvis Other: ttp right trapezius Skin General skin exam: no rashes or lesions noted Neuro General: patient alert, patient awake and tone normal Extrem Right upper extremity: shoulder/upper arm Details: axillary nerve sensory function normal and abnormal ROM (pain in posterior shoulder and trapzius with ROM) and wrist Details: normal vascular exam Other: distal RUE sensation and motor intact Course Vital Signs Vital signs: Vital Signs Temperature 36.4 C 09/06/24 11:49 Pulse 73 09/06/24 11:49 Respiratory Rate 16 09/06/24 11:49 Blood Pressure 113/77 09/06/24 11:49 Pulse Oximetry 100 09/06/24 11:49 Temperature 36.4 C 09/06/24 11:49 Temperature Source Oral 09/06/24 11:49 Pulse 67 09/06/24 15:31 Respiratory Rate 14 09/06/24 13:39 Respiratory Effort Normal 09/06/24 12:22 Blood Pressure 141/83 H 09/06/24 15:31 Blood Pressure Mean 102 09/06/24 15:31 Blood Pressure Position Sitting 09/06/24 13:05 Pulse Oximetry 100 09/06/24 15:31 Oxygen Delivery Method Room Air 09/06/24 13:05 Oxygen Flow Rate 0 09/06/24 13:05 Pain Level 8 09/06/24 13:00 Medical Decision Making 1555 --39-year-old female here with severe pain and spasm of her right neck and upper back extending into her shoulder worsening over the past few days since onset while sleeping. No preceding traumatic event. Patient is hemodynamically stable. She is neurologically intact. Concern for cervical nerve root impingement versus spasm. Patient was initially treated with Toradol IM as well as Valium orally. On reassessment patient was still having significant pain. IV established to treat with Dilaudid IV, acetaminophen IV, will also add ondansetron IV given prior nausea with opioids. STARR Madrigal to offer trigger point injection. 1640 --patient reassessed: She did have some improvement in her shoulder and locally where injection was performed. She continues to have significant pain in her mid back. IV was recently established by nursing and analgesics were administered. Plan to reassess. Quality:SDOH Health Related Social Needs: No Data to Display PFSH All Active Problems Low thyroid stimulating hormone (TSH) level (Acute) Insomnia (Acute) Nausea & vomiting (Acute) SAB (spontaneous ) (Acute) Positive test (Acute) Right patellofemoral syndrome (Acute) 06/27/24 Orthopaedics and pt will be seeing Dr Guillen. Chondromalacia patellae, right knee (Acute) Pain of right patella (Acute ~03/2024) 03/23/24 [facility] Orthopedics, Dr Tripathi Post-COVID chronic cough (Acute) Encounter for immunization (Acute) Encounter for procreative management and counseling for gestational carrier (Acute) Internal derangement of left knee (Acute) Grief associated with loss of fetus (Acute) Hx of dilation and curettage (Acute) 04/21/2023: D&C 8w5d EGA Rh negative state in antepartum period (Acute) Miscarriage (Acute) state, gestational carrier (Acute) Left medial knee pain (Acute) Routine medical exam (Acute) Instability of both shoulder joints (Acute) Patient desires (Acute) 04/2023 gestational carrier. [place] Labral tear of shoulder (Acute) Suspected Scapular dyskinesis (Acute) Spasm of thoracic back muscle (Acute) Injury of right elbow region (Acute 08/19/20) Encounter for procreative management and counseling for person acting as gestational surrogate (Acute) Umbilical hernia (Acute) Surgical consult [facility] 08/18/2015: Small hernia (umbilical vs. low epigastric), recommend surgery at pt convenience Atopic dermatitis (Chronic) Allergic rhinitis (Chronic) Medical History Migraine COVID (~12/30/21) 10/13/23 Chronic daily headache Onset 06/29/18. assoc with hyperemesis. MRA/MRI of brain nl. Occipital nerve block 06/29/18 with temporary improvement. Gastroesophageal reflux disease Hyperemesis affecting , antepartum From 9 weeks until approximately 16 weeks. Patient remains nauseated but without emesis. 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 [facility]. Knee Surgery Foot Arthrodesis Colposcopy Cervix With Loop Electrode Conization Biopsy of breast (12/22/16) Benign. [facility]. Family History Paternal Grandfather Neoplasm Melanoma Colon [place] dx'ed 70s Mother Neoplasm Melanoma Depression Maternal Grandfather Colon cancer Pancreatic cancer Maternal Grandmother Depression Social History Smoking/Tobacco Use Status: Never Second Hand Exposure: No Smoking risk assessment performed?: Yes Alcohol Intake: never Drug use: Never Substance use type: does not use Adopted: No Caregiver/Support person: No Foster care: No Household members: spouse, children and other Details: Javed Doe, [place] Housing: house Number of Children: 2 Communication Needs: Corrective Lenses Education Level: master's degree Do you need help understanding health information?: Never 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 [employer] Pets and animals: Yes (Chickens and ducks) Pets and animals: farm animals Sexually active: Yes Do you think of yourself as: straight/heterosexual Current gender identity: female What is your relationship status?: How often do you talk on the phone with friends or family?: three or more times per week How often do you get together with friends or relatives?: once per week Do you belong to any clubs or organized social groups?: no Panel score (0-1 are the most socially isolated patients): 2 What type of physical activity do you participate in: walking and running Duration: 15-30 minutes/day Frequency: 3-4 times per week Elizabeth/Mosque: Synagogue Special elizabeth needs: No Seatbelt use: always Helmet use: Yes Helmet use: always Drive intox or ride w/intox local 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 Date GA/Weeks # Preg Succ Route Wgt Sex Labor Lgth Anesth esia Location [facility] 12/24/18 39 No vaginal 3458.642 g Male Maria Antonia Kendall Delivery Date: 12/24/18 Last Updated by: MD Rodney Jurado severe hyperemesis
[2024-09-06] MEDS: Ondansetron 4 MG/2 ML VIAL IVP (16:26)
[2024-09-06] MEDS: ACETAMINOPHEN 1,000 MG/100 ML BAG 400 MG IVPB (16:26)
[2024-09-06] MEDS: HYDROmorphone 2 MG/ML SYR 1 MG IVP (16:26)
--- NOTE | 2024-09-06 17:30 | DI.CT_ITS ---
Exam(s) CT BRAIN NECK CTA EXAM: CT BRAIN NECK CTA CLINICAL HISTORY: neck pain and dizziness s/p chiropractor manipulat. TECHNIQUE: Imaging Protocol: Axial CT angiography was performed with multi-slice acquisition and mu lti-planar and MIP reconstructions. CONTRAST MATERIAL: Intravenous: Omnipaque 350 Contrast volume:70 ml COMPARISON: CT CT HEAD WO/W from 07/08/2023 FINDINGS: CT Head W/O and W contrast: Ventricles and Extra axial spaces: Normal in size and morphology for the patient's age. Hemorrhage: None. Cerebral parenchyma: No evidence of acute infarct or mass. Midline shift: None. Brainstem/Cerebellum: No acute findings.. Calvarium: Normal. Visualized Paranasal sinuses/Mastoids: Clear. Soft Tissues: Unremarkable. Enhancement: Normal. CTA Brain W: Internal Carotid Arteries: Petrous: Normal. Cavernous: Normal. Cerebral: Normal. Middle Cerebral Arteries: Right: No aneurysm, occlusion or significant stenosis. Left: No aneurysm, occlusion or significant stenosis. Anterior Cerebral Arteries: Right: No aneurysm, occlusion or significant stenosis. Left: No aneurysm, occlusion or significant stenosis. Posterior cerebral Arteries: Right: No aneurysm, occlusion or significant stenosis. Left: No aneurysm, occlusion or significant stenosis. Vertebral Arteries: Right: No aneurysm, occlusion or significant stenosis. Left: No aneurysm, occlusion or significant stenosis. Basilar Artery: No aneurysm, occlusion or significant stenosis. CTA Neck W: Common Carotid: Right: No dissection, occlusion or significant stenosis. Left: No dissection, occlusion or significant stenosis. External Carotid: Right: No dissection, occlusion or significant stenosis. Left: No dissection, occlusion or significant stenosis. Internal Carotid: Right: No dissection, occlusion or significant stenosis. Left: No dissection, occlusion or significant stenosis. Vertebral Artery: Right: Dominant. No dissection, occlusion or significant stenosis. Left: Diminutive. Intact throughout. No dissection, occlusion or significant stenosis. Lung Apices: No acute findings. Bones: No acute abnormality. Soft Tissues: Normal. IMPRESSION: 1. CTA brain: Normal CTA examination of the [place]. 2. Head CT: Unremarkable CT Head. 3. CTA neck: Normal CTA examination of the neck. RADIATION DOSE DELIVERED: Total DLP DATA REPOSITORY: All CT scans at this facility are submitted to the National Radiology Data Registry (NRDR) Dose Index Registry (DIR) with the [employer] (ACR). RADIATION OPTIMIZATION: All CT scans at this facility use at least one of these dose optimization te chniques: automated exposure control; mA and/or kV adjustment per patient size (includes targeted exa ms where dose is matched to clinical indication); or iterative reconstruction.
[2024-09-06 17:48] LABS: Abs Immature Grans 0.01 10^3/uL (0.0-0.06); Absolute Basophil Count 0.02 10^3/uL (0.0-0.2); Absolute Eosinophil Count 0.13 10^3/uL (0.0-0.7); Absolute Lymphocyte Count 3.99 10^3/uL (1.2-3.4); Absolute Monocyte Count 0.57 10^3/uL (0.1-0.8); Basophils % 0.3 %; Eosinophils % 1.7 %; HCT 35.6 % (36.0-46.0); HGB 11.6 g/dL (11.2-15.7); Immature Grans % 0.1 %; MCH 28.5 pg (27.0-33.0); MCHC 32.6 % (32.0-36.0); MCV 88 fL (80-95); MPV 9.2 fL (8.0-11.0); Monocytes % 7.3 %; Neutrophils % 39.6 %; Platelet Count 203 10^3/uL (130-400); RBC 4.07 10^6/uL (3.93-5.22); RDW 12.4 % (11.7-14.6); RDW-SD 39.8 fL; WBC 7.82 10^3/uL (4.4-10.8)
[2024-09-06 18:14] LABS: ALT 28 U/L (14-59); AST 22 U/L (15-37); Albumin 3.2 g/dL (3.4-5.0); Alkaline Phosphatase 66 U/L (46-116); Anion Gap 7.8 mmol/L (3-11); BUN 9 mg/dL (7-18); Bilirubin, Total 0.42 mg/dL (0.2-1.0); CO2 24.2 mmol/L (21.0-32.0); CREATININE 0.7 mg/dL (0.55-1.02); Calcium 8.8 mg/dL (8.5-10.1); Chloride 108 mmol/L (98-107); Estimated GFR 112.05 (mL/min/1.73m2); Glucose 88 mg/dL (74-106); Magnesium 1.7 mg/dL (1.8-2.4); Potassium 3.9 mmol/L (3.5-5.1); Sodium 140 mmol/L (136-145); Total Protein 6.3 g/dL (6.4-8.2)
--- NOTE | 2024-09-06 18:15 | RT.EKG_ITS ---
APPROVED REPORT Exam: Resting ECG Reason for Exam: shoulder pain Patient Location: E HR:56 bpm ECG Measurements Heart Rate 56 AXIS IL 153 P 38 QRSd 74 QRS 68 QT 403 T 44 QTc 388 Conclusion Sinus bradycardia...rate< 60 Anteroseptal infarct, age indeterminate...Q >35mS, T neg, V1-V2
--- NOTE | 2024-09-06 18:15 | DI.RAD_ITS ---
Exam(s) XR PORTABLE CHEST AP EXAM: XR PORTABLE CHEST AP CLINICAL HISTORY: elevated troponin TECHNIQUE: 2D digital imaging was performed. COMPARISON: CR,XR XR RIBS RT W PA LAT CHEST from 12/30/2023 FINDINGS: LUNGS: Clear. No pleural abnormality seen. HEART: Normal size. AORTA: Normal diameter. BONES: Unremarkable for age. Soft tissues: Unremarkable. IMPRESSION: No acute findings. DATA REPOSITORY: RADIATION DOSE DELIVERED:
[2024-09-06 18:17] LABS: Troponin I 92 ng/L (<or=51)
[2024-09-06] MEDS: Normal Saline - Diluent 50 ML VIAL IJ (18:18)
[2024-09-06] MEDS: Omnipaque 350 MG/ML 100 ML BTL 70 ML IJ (18:20)
[2024-09-06 19:05] LABS: Troponin I 93 ng/L (<or=51)
--- NOTE | 2024-09-06 19:21 | W.EDPROG ---
Date of service: 09/06/24 Time of Service: 19:25 Medical Decision Making Patient signed out to me pending reevaluation after Dilaudid which helped her pain but now she is feeling dizzy and still has some neck discomfort. Given continued symptoms especially after she had chiropractic manipulation I ordered a CTA of her brain and head which showed no acute findings. No dissection. Given her dizziness I did send CBC and CMP along with a 2 troponins. Last June she had dizziness and had mild elevation of her troponins and had follow-up echocardiogram and Holter which showed no acute findings. Her troponins tonight were also again slightly elevated at 92 and 93. She adamantly denies any chest pain. She has no difficulty breathing. I do not acute coronary syndrome, discussed admission for observation versus discharge with outpatient follow-up and she prefers outpatient follow-up which I feel is reasonable. I suspect the dizziness that she had was from the Dilaudid as it started shortly after she got this and she does have sensitivity to opiates. I will provide Flexeril and 4 doses of oral morphine to take as needed. 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 She denies any IV drug use and again has no fevers to suggest entities such as spinal epidural abscess. Lab Data Lab results reviewed: Yes I reviewed the patient's lab results. ECG Data Attestation: I personally reviewed and interpreted this ECG (s) as follows: Prior ECG tracings: available for review Interpretation: sinus rate of 90 pr 169 no significant changes from prior, no stemi Quality:SDOH Health Related Social Needs: No Data to Display Sign Out Sign Out Data: Sign Out Comment: Patient here with significant neck and upper back pain and spasm. Patient has received Valium p.o., Toradol IM, trigger point injection, and now more recently Dilaudid and acetaminophen IV. Plan at signout is to reassess and determine disposition. Last updated by Dinh Mcfadden MD at 09/06/24 16:42 Discharge Plan Disposition Patient Disposition: Home Condition: Stable Discharge Details Clinical Impression: Neck pain, Dizziness Primary Care Provider: Rebekah Greco ED Provider: Adam Raymundo Home Meds and New Rx's Prescriptions: New cyclobenzaprine 10 mg tablet 10 mg PO TID PRNQty: 20 0RF No Action No Known Home Meds Discharge Instructions Additional Instructions: Your imaging of your neck and vessels did not show any concerning findings at this time. I would recommend following up with your doctor if your pain continues. You had a mild elevation in one of your heart enzymes since June of last year. I would recommend discussing with your primary if you should see cardiology or have a follow-up echocardiogram similar to what you had last year. If you feel more ill or have new symptoms such as high fevers or difficulty breathing return to the emergency department for reevaluation
[2024-09-06] MEDS: Cyclobenzaprine 10 MG TAB, 3 TABS/BTL PO (19:53)
[2024-09-06] MEDS: MORPHine IR 15 MG TAB, 4 TABS/BTL PO (19:54)
--- NOTE | 2024-09-07 08:29 | ED.PROG_ITS ---
Date of service: 09/06/24 Time of Service: 15:50 Medical Decision Making 39-year-old female with acute pain to trapezius muscle, after assessment and discussion regarding risk associated with Marcaine administration in the presence of a trigger point injection, including that of dysrhythmia and even which is a rare result of injection of this medication. Patient consented to trigger point injection. The superior portion of the trapezius was injected just adjacent to the right scapula, 3 injection points with 2 cc of Marcaine 0.5% were placed and patient improvement of pain in this location. She has adjacent discomfort in the paraspinal region, however given risk of complication I will not inject in this area. Patient reports pain improvement in the area of injection without significant worsening of symptoms. Patient tolerated procedure well and did not have any complications immediately following injection. Quality:[facility] Health Related Social Needs: No Data to Display Sign Out Sign Out Data: Sign Out Comment: Patient here with significant neck and upper back pain and spasm. Patient has received Valium p.o., Toradol IM, trigger point injection, and now more recently Dilaudid and acetaminophen IV. Plan at signout is to reassess and determine disposition. Last updated by Dinh Mcfadden MD at 09/06/24 16:42 Discharge Plan Disposition Patient Disposition: Home Condition: Stable Discharge Details Clinical Impression: Neck pain, Dizziness Primary Care Provider: Rebekah Greco ED Provider: Adam Raymundo Home Meds and New Rx's Prescriptions: New cyclobenzaprine 10 mg tablet 10 mg PO TID PRNQty: 20 0RF No Action No Known Home Meds Discharge Instructions Additional Instructions: Your imaging of your neck and vessels did not show any concerning findings at this time. I would recommend following up with your doctor if your pain continues. You had a mild elevation in one of your heart enzymes since June of last year. I would recommend discussing with your primary if you should see cardiology or have a follow-up echocardiogram similar to what you had last year. If you feel more ill or have new symptoms such as high fevers or difficulty breathing return to the emergency department for reevaluation Discharge Data Discharge Date/Time-TO BE ENTERED AT DEPARTURE: 09/06/24 20:19
== END 2024-09-06 20:19 | disposition home or self-care (01) ==
PROVIDERS: Emergency Provider Emergency Medicine; PCP Nurse Practitioner
DX: M54.2 Cervicalgia; R42 Dizziness and giddiness
CPT/HCPCS: 00123; 20553; 70496; 70498; 80053; 93005; 96365; 96372; 96375; 99285; 71045; 83735; 84484; 85025; 93010; J0131; J0665; J1171; J1885; J2405; J3490

== ENCOUNTER 2024-09-21 16:13 | Outpatient (CLI) | payer BC, SELFPAY ==
[2024-09-21 17:06] LABS: TSH (W/Ref FT4) 4.92 uIU/mL (0.36-3.74)
[2024-09-21 18:18] LABS: FREE T4 0.51 ng/dL (0.76-1.46)
== END 2024-09-21 16:14 | disposition home or self-care (01) ==
LOC: LBO 16:15
PROVIDERS: PCP Nurse Practitioner; Visit Provider Obstetrics & Gynecology Gynecology
DX: R79.89 Other specified abnormal findings of blood chemistry (principal); E06.9 Thyroiditis, unspecified
CPT/HCPCS: 36415; 84439; 84443

== ENCOUNTER 2024-09-26 07:48 | Outpatient (CLI) | payer BC, SELFPAY ==
--- NOTE | 2024-09-26 07:45 | RT.EKG_ITS ---
APPROVED REPORT Exam: Resting ECG Reason for Exam: elevated troponin Patient Location: O HR:66 bpm ECG Measurements Heart Rate 66 AXIS TX 133 P 25 QRSd 76 QRS 78 QT 373 T 23 QTc 391 Conclusion Sinus rhythm...normal P axis, V-rate 50- 99 Normal Electrocardiogram
== END 2024-09-26 07:49 | disposition home or self-care (01) ==
LOC: DI.CARD 07:49
PROVIDERS: PCP Nurse Practitioner; Visit Provider Registered Nurse
DX: R79.89 Other specified abnormal findings of blood chemistry (principal)
CPT/HCPCS: 93010

== ENCOUNTER 2024-09-26 09:11 | Outpatient (CLI) | payer BC, SELFPAY | END 2024-09-26 09:12 | disposition home or self-care (01) | PROVIDERS: PCP Nurse Practitioner; Visit Provider Registered Nurse | DX: R55 Syncope and collapse (principal); R00.2 Palpitations | CPT/HCPCS: 93270 ==

== ENCOUNTER 2024-10-03 02:50 | Outpatient (CLI) | payer BC, SELFPAY ==
--- NOTE | 2024-10-03 08:30 | DI.MRI_ITS ---
Exam(s) MR CERVICAL SPINE WO EXAM: MR CERVICAL SPINE WO CLINICAL HISTORY: neck pain,m54.2 TECHNIQUE: Multiplanar multisequence MRI of the cervical spine was performed without intravenous con trast. COMPARISON: CT CT BRAIN NECK CTA from 09/06/2024 FINDINGS: BONES: Vertebral body heights are maintained. Intervertebral disc spaces are normal. Alignment is nor mal. Bone marrow signal intensity is within normal limits. CERVICAL CORD: Craniovertebral junction is unremarkable. The cervical cord is normal size and signal intensity. SOFT TISSUES: Unremarkable. C2-3: No disc herniation or bulge is identified. No significant central spinal canal or neural forami nal stenosis. C3-4: No disc herniation or bulge is identified. No significant central spinal canal or neural forami nal stenosis C4-5: There is a mild diffuse disc bulge at this level. No significant central spinal canal or neura l foraminal stenosis C5-6: No disc herniation or bulge is identified. No significant central spinal canal or neural forami nal stenosis C6-7: There is a mild diffuse disc bulge at this level. No significant central spinal canal or neura l foraminal stenosis C7-T1: No disc herniation or bulge is identified. No significant central spinal canal or neural silviano inal stenosis IMPRESSION: 1. Mild diffuse disc bulges at C4-5 and C6-C7. 2. No significant central spinal canal or neural foraminal stenosis is seen in the cervical spine. DATA REPOSITORY:
== END 2024-10-03 03:10 ==
LOC: DI 02:50
PROVIDERS: PCP Nurse Practitioner; Visit Provider Nurse Practitioner Family
DX: M50.121 Cervical disc disorder at C4-C5 level with radiculopathy (principal)
CPT/HCPCS: 72141

== ENCOUNTER 2024-10-04 00:47 | Outpatient (CLI) | payer BC, SELFPAY ==
--- NOTE | 2024-10-04 07:30 | DI.NM_ITS ---
APPROVED REPORT Exam: Pharmacologic Patient Location: Out-Patient Room/Bed: Stress Nurse: Damion Son RN Ordering Provider:ERUM BENTON, Contact Number: [phone] BMI: 23.34 Baseline Rhythm: Sinus Bradycardia. Indications: Elevated Troponins; Syncope; Dizziness; Palpitations. Medical History Medical History: Anxiety; GERD; Migraines. Cardiac Medications: None. Allergies: Vicodin. Cardiac Risk Factors: Family Hx. Previous Cardiac Procedures: None. Pretest Chest Pain Characteristics: None. Exercise History: Indeterminate. Physical Disabilities: Right neck, shoulder, and back injury. Lung Sounds: Clear bilaterally throughout, anterior and posterior. Heart Sounds: S1 and S2 auscultated. Stress Test Details Test: Pharmacologic stress was paired with low level exercise. Reason for pharmacologic stress test: physical limitation. Nuclear Acquisition: Rest Tc-99m/Stress Tc-99m 1 day Rest Isotope: Tc-99m Sestamibi. Dose: 10.2 Date: 10/04/2024 Injection Time: 1055 Stress Isotope: Tc-99m Sestamibi. Dose: 32.9 Date: 10/04/2024 Injection Time: 1235 HR Resting HR Supine: 58 bpm Max Heart Rate (APMHR): 180 bpm Resting HR Standin bpm Target HR (85% APMHR): 153 bpm Max HR Achieved: 141 bpm % of APMHR: 78 Recovery HR: 85 bpm HR response to stress: Normal HR response to stress. BP Resting BP Supine: 102/70 mmHg Resting BP Standin/74 mmHg Max BP: 118/74 mmHg Recovery BP: 118/64 mmHg BP response to stress: Normal blood pressure response to stress. ECG Resting ECG: Sinus Bradycardia. Ectopy: None. Stress ECG: Sinus Tachycardia. ST Change: Nondiagnostic low heart rate. Arrhythmia: None. Recovery ECG: Sinus Rhythm. Recovery ST Change: Nondiagnostic low heart rate; Horizontal ST depression; Upsloping ST depression; Downsloping ST depression. Lead(s): II, III, aVF Recovery ST Deviation: 1-2 mm Recovery Arrhythmia: None. Comment: ST changes returned to baseline before stress test ended. Clinical Reason for Termination: Dizziness. Stress Symptoms: Dizziness; Leg Tingling; ...head jj. Exercise duration: 03 min52 sec Exercise capacity: 2.07 METs Angina Score: None Ferrer Treadmill Score: 3.2 Rate Pressure Product: 23295 Stress ECG Conclusion 1. Resting electrocardiogram was normal 2. Patient underwent testing using a combination of very low level size and pharmacologic stress with regadenoson 3. Peak heart rate achieved was 78% of maximal predicted heart rate for age 4. The electrocardiogram showed diffuse nondiagnostic ST-T abnormalities 5. There were no significant dysrhythmias 6. See MPI report Ferrer Treadmill Score is 3.2 which is Moderate risk. Stress Test Summary STAGE HR BP SpO2 Symptoms NOTES Supine 58 102/70 99 Pt. c/o 4/10, dull, intermittent, right neck, shoulder, and back pain r/t a recent injury. No other symptoms noted. Standing 65 118/74 99 1 min post Lexiscan injection 82 114/60 99 Pt. c/o moderate dizziness and tingling in her legs. 3 min post Lexiscan injection 102 118/70 99 Pt. c/o mild dizziness, a ...head jj, and tingling in her legs. 6 min post Lexiscan injection 76 102/68 98 Pt. c/o mild dizziness, a ...head jj again, and mini mal tingling in her legs. 9 min post Lexiscan injection 85 118/64 98 Pt. c/o minimal dizziness and minimal tingling in her le gs. Pt. states she is ...very cold, and was noted to be shivering. Pt. was provided with a warm julian nket. RN noted slight ST changes during the immediate recovery period in leads II, III, and aVF, but pt. de nied any chest pain/pressure or shortness of breath, and all ST changes returned to baseline before t he stress test ended. Pt. was still complaining of minimal dizziness and minimal tingling in her legs upon finishing the stress test and moving from the Stress Lab to Diagnostic Imaging. Pt. moved from laying to sitting and sitting to standing very slowly and with assistance from RN and CPT. Pt. ambula [place] from Stress Lab to Diagnostic Imaging with assistance from RN and CPT. Pt. stated, I'm feeling a little better now. Pt. was encouraged to get something to eat and drink following the after stress images. Pt. was conversing appropriately with nursing staff upon leaving the Stress Lab. MPI Conclusion Myocardial perfusion is normal. There is no ischemia or evidence of prior infarction Ejection fraction is 60% with normal wall motion
[2024-10-04] MEDS: Regadenoson 0.4 MG/5 ML SYR IVP (12:34)
== END 2024-10-04 01:07 ==
LOC: DI 00:47
PROVIDERS: PCP Nurse Practitioner; Visit Provider Registered Nurse
DX: R79.89 Other specified abnormal findings of blood chemistry (principal); R55 Syncope and collapse
CPT/HCPCS: 78452; 93017; J2785

== ENCOUNTER 2024-10-25 15:21 | Outpatient (CLI) | payer BC, SELFPAY ==
--- OUTSIDE RECORDS SUMMARY | 2024-10-25 15:46 | XMS_ITS | Encounter Summary ---
Author Organization [facility] [place] [address] Care Team Providers Care Public Relations Consultant Name Role Phone Lucia Taylor APRN Primary Care Provider [phone] Reason for Referral * Surgical (Routine) - Closed Specialty Diagnoses / Procedures Referred By Isra gage Referred To Contact Gastroenterology Diagnoses Chronic nausea Procedures VIDEO CAPSULE ENDOSCOPY Igor Denney MD [facility] [place] [address] [facility] End[address] [place] [address] Referral ID Status Reason Start Date Expiration Date V isits Requested Visits Authorized [id number] Closed Specialty Service Requested 01/12/2018 01/12/2019 1 1 Reason for Visit * Reason Comments Follow-up Encounter Details Date Type Department Care Team (Late st Contact Info) Description 01/12/2018 10:00 AM EDT Office [place] [address] Igor Denney MD [facility] [place] [address] Chronic nausea; Irritable bowel syndrome with constipation Social History Tobacco Use Types Packs/Day Years Used Date Smoking Tobacco: Never Smokeless Tobacco: Never Alcohol Use Standard Drinks/Week Comments No 0 (1 standard drink = 0.6 oz pur e alcohol) Sex and Gender Information Value Date Recorded Sex Assigned at Not on file Gender Identity Not on file Sexual Orientation Not on file documented as of this encounter Last Filed Vital Signs Vital Sign Reading Time Taken Comments Blood Pressure 112/60 01/12/2018 10:04 AM EDT Pulse 60 01/12/2018 10:04 AM EDT Temperature - - Respiratory Rate - - Oxygen Saturation - - Inhaled Oxygen Concentration - - Weight 57.6 kg (127 lb) 01/12/2018 10:04 AM EDT Height 162.6 cm (5' 4) 01/12/2018 10:04 AM EDT Body Mass Index 21.8 01/12/2018 10:04 AM EDT documented in this encounter Progress Notes * Igor Denney - 01/12/2018 10:00 AM EDT [facility] Division of Gastroenterology and Hepatology Outpatient Consultation Reason for Visit: Nausea/vomiting Referred by ID: Jerome Robledo is a 32 y.o. female with PMHx significant for anxiety who is referred to GI for evaluation of now chronic nausea, vomiting, abdominal pain and altered bowel habits. Active GI Problem List: # Nausea and vomiting - [facility]OH until October 2016 when she developed nausea, vomiting, and left sided abdominal pain with [id number] unintentional weight loss. - Evaluation at [facility] that included an abdominal ultrasound and HIDA scans that were both without significant findings. - Endoscopy on 02/15/17 that was also without significant findings. - CT scan of the abdomen and pelvis on 02/21/17 that showed a large jejunal intussusception. She was taken to the operating room on 02/28/[address] Zacarias Acevedo for an exploratory laparotomy. An intussusception was not found intraoperatively despite running her bowel, but she was noted to have alemon- sized mass involving the gastrodoudenal junction of unclear etiology. A biopsy of the mass was performed as well as peripancreatic lymph node biopsy. Pathology revealed that the gastroduodenal mass was benign; however, amyloid was noted in the vascular material. The lymph node was reactive. The specimen was sent to the [facility] for further evaluation for amyloid. Mass spectrometry was performed that supported the diagnosis of amyloidosis; however, subtyping could not be performed due to an inadequate specimen. - Second opinion at [facility] and was seen by Dr. Tijerina and Dr. Arredondo. The patient underwent endoscopy on 04/05/17. There was gastroduodenal nodular changes noted that were biopsied. EUS was also performed and demonstrated hypoechoic changes in the gastrojejunal wall lining to the smooth muscle lesion of the antrum. The pathology from this procedure showed normal duodenal mucosa with no diagnostic a bnormality. 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 - MRI on 04/18/17 that again showed jejunal intussusception in the left upper quadrant that was unchanged from prior on 03/30/17. An area of nonspecific f ocal wall thickening within the jejunum was also noted. No lymphadenopathy was noted. - Capsule study normal - Admitted to [facility] on 07/08/2017 and taken to the OR for a diagnostic laparoscopy for chronic abdominal pain. She was found to have an enlarged pyloric mass. There was concern that this could cause obstruction and may be the source of her pain so she was converted to a distal Gastrectomy and bilroth 1. Her recovery from this surgery was uneventful. It is not clear if they ran her bowel during this surgery. - Mild improvement in symptoms with zofran, phenergan made her jittery, compazine did not seem to help much. - Has tried dairy free and gluten free diets - [place] [facility] [place] [facility] [place] one polyp - Gastric emptying [place] [facility] [place] - Medication trials: No improvement with zofran or scopolamine, phenergan and or compazine made herjittery. Peppermint oil made her dizzy Interval events: - Her symptoms are essentially stable in comparison to her last visit with frequent nausea and occasional vomiting. She has maintained her weight which is a steady 128 pounds. She has been able to work full-time but often has to leave work early due to her symptoms she is fearful that she will haveto leave her job if the symptoms are ongoing. Does not eat during the day to minimize symptoms while at work (nausea and frequent BMs), eats mostly at night. - Did develop an impressive rash on her flexor surfaces and back, is seeing derm at [facility] he performed a biopsy that was not diagnostic, lap workup under way. Having a lot of pruritis. - Pepermint oil made things worse (made her dizzy) - Scopolamine no difference. 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 - Does not smoke, does not drink. 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 multivitamin with minerals Tablet Take by mouth. ??? scopolamine (TRANSDERM-SCOP) 1 mg over 3 days patch [address] 1 patch onto the skin every 3 days. (Patient not taking: Reported on 01/12/2018) 10 patch 2 ??? KELNOR , 28, 1-35 mg-mcg Tablet TAKE ONE TABLET BY MOUTH EVERY DAY SKIP PLACEBO WEEK 2 ??? LORazepam (ATIVAN) 1 mg Tablet TAKE ONE TABLET BY MOUTH TWICE A DAY NEEDED 0 ??? ondansetron (ZOFRAN-ODT) 4 mg Tablet, Rapid Dissolve TAKE 1 TABLET BY MOUTH EVERY 6 HOURS NEEDED 0 ??? sertraline (ZOLOFT) 50 mg Tablet Take 100 mg by mouth. No current facility-administered medications for this visit. Allergies Allergen Reactions ??? Epinephrine At dentist office convulsion blacked out ??? Unclassified Drug Reports getting very sick to her stomach from strong pain medications such as oxycontin, hydrocodone; believes that she can tolerate dilaudid. Physical Examination: Vitals: 01/12/18 1004 Weight: 57.6 kg (127 lb) Height: 162.6 cm (5' 4) General:Anxious appearing, NAD HEENT: NC/AT, PERRL, anicteric sclera, MMM Neck: soft, supple, no cervical LAD ABD: Soft, NT/ND, NABS, No hepatosplenomegaly appreciated. No fluid wave or bulging of flanks Extremities: Warm and well perfused. No espinoza erythema Skin:Red rash over flexor surfaces and back , no jaundice, no spider angiomas Neuro: AAOx3, Grossly non-focal. Labs: 01/01/16: ROMI Negative C4 complement 14 SSB antibody 1.5 SSA 2.0 SM antibody 3 TTG 1.2 TSH 1.49 (2008) CBC and CMP recently WNL Additional Testing: - Reviewed available labs, imaging and endoscopy results in [facility] as well as Scan Docs tab. CT abdomen 03/03/2017 1. Nonspecific hypoattenuation involving the anterior wall of the 2nd portion of the duodenum, without focal mass. 2. Jejunal intussusception without obstruction or identifiable lead point. I have personally reviewed the images and the above interpretation and agree with the findings. CT abdomen 03/30/2017: GI TRACT: No mass or wall thickening. . There is jejunojejunal intussusception within the left upper quadrant abdomen (image 5:31). There is focal thickening of the jejunal lobe image 5:35. These are not visible on prior CT dated 02/21/17. There is no bowel obstruction. MRE 04/18/2017: COMPARISON: CT abdomen pelvis from 02/21/2017 and 03/30/2017 Bowel: Again seen is a jejunojejunal intussusception in the left upper quadrant which is best seen on series 37, image 58. This finding is not significantly changed and is better evaluated on the abdomen pelvis CT from 03/30/2017. An area of nonspecific focal wall thickening within the jejunum within the left upper quadrant (series 37, image 70) is also unchanged. Note is made that the spatial resolution of MRI is lower than that of CT. No evidence of bowel obstruction. Mesentery: Unremarkable Lymph nodes: There is no lymphadenopathy in the abdomen and pelvis. Fluid collections: There is no evidence of ascites or focal fluid collections. Other solid organs: The visualized remaining abdominal and pelvic solid organs are unremarkable.? CT 09/12/2017: - Large fecal burden, no obstruction MRI brain: - WNL NM gastric emptying scan: - WNL Path: 07/08/17: Gastroduodenal resection specimen with mass forming pancreatic acinar and ductal hetrotopia within expanded submucosa. 02/28/17 ?Final Pathologic Diagnosis: A. DUODENAL WALL MASS, WEDGE BIOPSY -Multifocal mature nerve bundles in muscular, fibroadipose, and vascular connective tissue -Foreign body with histiocytic reaction -Congo red highlights congophilic vascular material; tissue will be submitted for amyloid typing toexclude a possibility of amyloid deposition B. LYMPH NODE, PERIDUODENAL, EXCISION - Reactive lymphoid hyperplasia As indicated in the signed out report, the finding of amyloid like material involving the vasculature was further confirmed by tissue analysis. A tissue block was submitted to [facility] [employer]; a repeat congo red was performed which was also positive.?The liquid chromatography tandem mass spectrometry (LC MS/MS) was performed on the peptide extracted from the Congo red positive dissected areas. LC MS/MS detected a peptide profile that includes proteins deposited with amyloid of all types.?This finding supports a diagnosis of amyloidosis. [facility] [employer] could not determine the specific type of amyloid by this analysis.?Clinical correlation and repeat analysis on another amyloid involved site is recommended.? IMPRESSION: Jerome Robledo is a 32 y.o. female with PMHx significant for anxiety who is referred to GI for evaluation of now chronic nausea, vomiting, abdominal pain and altered bowel habits. Ms. Robledo is presently status post resection of a benign mass at her gastroduodenal junction, without resolution of her chronic nausea vomiting and abdominal pain. She has undergone extensive workup including multiple EGDs multiple capsule studies, endoscopic ultrasound, exploratory laparoscopy, labo ratory evaluation, gastric emptying, MRI brain, and multiple cross-sectional images. Despite this the cause of her debilitating symptoms remain unclear. It is worth noting that we have 3 images over the course of 3 months that showed persistent jejunal intussusception however the bowl has been run at least once and perhaps a second time without evidence of an intussusception. Additionally a capsule was able to pass without incident. I am still concerned that this could be the root of her symptoms and am recomending a repeat capsule study (understanding the risks of it getting stuck). It was raised in her joint radiology conference that although her bowel was ran laparoscopically sometimes is better to run it with a gloved hand as it is more sensitive. If ongoing evaluation fails to revealan etiology it may be worth asking our surgeons to do an exploratory surgery. I note that on her most recent CT she has a large stool burden and she had a traumatic delivery reason question of pelvicfloor dysfunction resulting large stool ball burden causing her symptoms. For the short-term we will focus on symptom controls, should be noted that her weight has remained stable since her last visit. RECOMMENDATIONS: # Stop scopolamine trial of Reglan # Repeat capsule study # Zofran PRN # Am cortisol level # Continue Miralax 17 grams daily, Squatty potty position recommended as well Follow up Pending above This case was discussed with Dr. Steve Denney MD [place] [address] P: [phone] F: [phone] Lucia Taylor APRN [address] [place] [address] * Britt Wilson MD - 01/12/2018 10:00 AM EDT ATTENDING ATTESTATION: I have seen and examined the patient with the GI fellow, Dr. Denney and I agree with his findings, assessment, and plan as written. Britt Wilson MD Gastroenterology attending Pager [phone] documented in this encounter Plan of Treatment Upcoming Encounters Date Type Department Care Team (Late st Contact Info) Description 10/26/2024 3:45 PM EST Office Visit Dermatology at [place] [address] [place] [address] Duglas Raymond MD [address], [place] [address] Scheduled Orders Name Type Priority Associated Diagnoses Orde r Schedule VIDEO CAPSULE ENDOSCOPY Procedures Routine Chronic nausea Ordered: 01/12/2018 documented as of this encounter Visit Diagnoses Diagnosis Chronic nausea Nausea alone Irritable bowel syndrome with constipation Irritable bowel syndrome documented in this encounter Care Teams Public Relations Consultant Relationship Specialty Start Date End Date Lucia Taylor APRN PCP - General Family Medicine 10/14/17 05/03/24 documented as of this encounter
--- OUTSIDE RECORDS SUMMARY | 2024-10-25 15:46 | XMS_ITS | Encounter Summary ---
Author Organization [facility] Address [facility] [place] [address] Care Team Providers Care Hose Coupling Joiner Name Role Phone Lucia Taylor APRN Primary Care Provider [phone] Reason for Visit * Reason Comments Follow-up Encounter Details Date Type Department Care Team (Late st Contact Info) Description 05/04/2018 9:30 AM EDT Office [place] [address] Igor Denney MD [facility] [place] [address] Chronic nausea Social History Tobacco Use Types Packs/Day Years [...] Sign Reading Time Taken Comments Blood Pressure 95/48 05/04/2018 9:27 AM EDT Pulse 51 05/04/2018 9:27 AM EDT Temperature - - Respiratory Rate - - Oxygen Saturation - - Inhaled Oxygen Concentration - - Weight 56.7 kg (125 lb) 05/04/2018 9:27 AM EDT Height 162.6 cm (5' 4) 05/04/2018 9:27 AM EDT Body Mass Index 21.46 05/04/2018 9:27 AM EDT documented in this encounter Progress Notes * Igor Denney Chase - 05/04/2018 9:30 AM EDT [facility] Division of Gastroenterology and Hepatology Outpatient Consultation Reason for Visit: Nausea/vomiting Referred by Lucia Taylor ID: Jerome Robledo is a 33 y.o. female with PMHx significant for anxiety who is referred to GI for evaluation of now chronic nausea, vomiting, abdominal pain and altered bowel habits. Active GI Problem List: # Nausea and vomiting - USOH until October 2016 when she developed nausea, vomiting, and left sided abdominal pain with [id number] unintentional weight loss. - Evaluation at [facility] that included an abdominal ultrasound and HIDA [...] reactive. The specimen was sent to the [facility] for further evaluation for amyloid. Mass spectrometry was performed that supported the diagnosis of amyloidosis; however, subtyping could not be performed due to an inadequate specimen. - [place] [facility] [place] and was seen by Dr. Tijerina and [...] - Capsule study normal - Ad[place] [facility] 07[place]2017 and taken to the OR [...] gluten free diets - MRI brain at [facility] [place] - [place] [facility] with one polyp - Gastric emptying at [facility] normal - Repeat capsule at [facility] normal - Medication trials: No improvement with zofran or scopolamine, phenergan and or compazine made herjittery. Peppermint oil made her dizzy. Reglan helped for days but stopped working after. Interval events: - Her symptoms are essentially stable in comparison to her last visit with frequent nausea and occasional vomiting. Also describes bloating. She has maintained her weight which is a steady 128 pounds. She has been able to work full-time but often has to leave work early due to her symptoms she is fearful that she will have to leave her job if the symptoms are ongoing. Does not eat during the day to minimize symptoms while at work (nausea and frequent BMs), eats mostly at night. Mostly eats eggs. Already avoids lactose and most FODMAP foods. - She has stopped all of her prior meds, no longer using zofran as it did not seem to make a difference in her symptom burden. Review of Systems: Constitutional: weight loss HEENT: [...] Outpatient Prescriptions Medication Sig Dispense Refill ??? trimethobenzamide (TIGAN) 300 mg Capsule Take 1 capsule by mouth 3 times daily. 90 capsule 3 No current facility-administered medications for this visit. Allergies Allergen Reactions ??? Epinephrine At dentist office convulsion blacked out ??? Unclassified Drug Reports getting very sick to her stomach from strong pain medications such as oxycontin, hydrocodone; believes that she can tolerate dilaudid. Physical Examination: Vitals: 05/04/18 0927 BP: 95/48 Pulse: 51 Weight: 56.7 kg (125 lb) Height: 162.6 cm (5' 4) General:Anxious appearing, NAD HEENT: NC/AT, PERRL, anicteric sclera, MMM Neck: soft, supple, no cervical LAD ABD: Soft, NT/ND, NABS, No hepatosplenomegaly appreciated. No fluid wave or bulging of flanks Extremities: Warm and well perfused. No espinoza erythema Skin:No rash today, has had rash over flexor surfaces on prior visits. no jaundice, no spider angiomas Neuro: AAOx3, [...] analysis. A tissue block was submitted to [facility] [employer] a repeat congo red was performed which was also positive.?The liquid chromatography tandem mass spectrometry (LC MS/MS) was performed on the peptide extracted from the Congo red positive dissected areas. LC MS/MS detected a peptide profile that includes proteins deposited with amyloid of all types.?This finding supports a diagnosis of amyloidosis. [facility] could not determine the specific type of amyloid by this analysis.?Clinical correlation and repeat analysis on another amyloid involved site is recommended.? IMPRESSION: Jerome Robledo is a 33 y.o. female with PMHx significant for anxiety [...] a capsule was able to pass without incident, a second capsule study was also performed given ongoing concern but was negative as well. Thus far no of our medication trials have improved her nausea or bloating. Will try Tigan next but I think a 3rd oponion may be warranted if this fails. RECOMMENDATIONS: # Trial of Tigan, if no improvement I think its time to consider referral to our new motility specialist Follow up Pending above This case was discussed with Dr. Steve Denney [place] [address] P: [phone] F: [phone] CC Lucia Taylor, STORAGE CONSULTANT [address] [place] [address] * Britt Wilson MD - 05/04/2018 9:30 AM EDT ATTENDING ATTESTATION: I have discussed the patient with the GI fellow, Dr. Denney and I agree with his findings, assessment, and plan as written. Britt Wilson MD Gastroenterology attending Pager [phone] documented in this encounter Plan of Treatment Upcoming Encounters Date Type Department Care Team (Late st Contact Info) Description 10/26/2024 3:45 PM EST Office Visit Dermatology at [place] [address] [place] [address] Duglas Raymond MD [address], [place] [address] documented as of this encounter Visit Diagnoses Diagnosis Chronic nausea Nausea alone documented in this encounter Care Teams Hose Coupling Joiner Relationship Specialty Start Date End Date Lucia Taylor, SHERRY PCP - General Family Medicine 10/14/17 05/03/24 documented as of this encounter
--- OUTSIDE RECORDS SUMMARY | 2024-10-25 15:46 | XMS_ITS | Encounter Summary ---
Author Organization [facility] Address [facility] [place] [address] Care Team Providers Care Broadband Technician Name Role Phone Rebekah Greco APRN Primary Care Provider [phone] Encounter Details Date Type Department Care Team (Latest Contact Info) Description 06/26/2024 Travel Social History Tobacco Use Types Packs/Day Years Used Date Smoking Tobacco: Never Smokeless Tobacco: Never Alcohol Use Standard Drinks/Week Comments No 0 (1 standard drink = 0.6 oz pur e alcohol) Sex and Gender Information Value Date Recorded Sex Assigned at Not on file Gender Identity Not on file Sexual Orientation Not on file documented as of this encounter Plan of Treatment Upcoming Encounters Date Type Department Care Team (Late st Contact Info) Description 10/26/2024 3:45 PM EST Office Visit Dermatology at [address] [place] [id number] Duglas Raymond MD [address] [facility], [place] [address] documented as of this encounter Visit Diagnoses Not on filedocumented in this encounter Care Teams Broadband Technician Relationship Specialty Start Date End Date Rebekah Greco APRN [address] [place] [address] PCP - General Internal Medicine 05/04/24 documented as of this encounter
--- OUTSIDE RECORDS SUMMARY | 2024-10-25 15:46 | XMS_ITS | Encounter Summary ---
Author Organization [facility] Address [facility] [place] [address] Care Team Providers Care Portable Canteen Operator Name Role Phone Lucia Taylor APRN Primary Care Provider [phone] Reason for Visit * Auth/Cert Specialty Diagnoses / Procedures Referred By Isra gage Referred To Contact Diagnoses Unspecified abdominal pain Weight loss Chronic abdominal pain and laternating bowel habits, 30lb weight loss Procedures PRO COLONOSCOPY, DIAGNOSTIC PRO ANESTH, LWR INTESTINE, SCREENING COLONOSCOPY COLONOSCOPY, DIAGNOSTIC Referral ID Status Reason Start Date Expiration Date Visits Re quested Visits Authorized [id number] 1 1 Encounter Details Date Type Department Care Team (Latest Contact Info) Description 11/01/2017 12:55 PM EST - 11/01/2017 5:22 PM EST Hospital Encounter [place] [address] [facility] [place] [address] Discharge Disposition: Home Social History Tobacco Use Types Packs/Day Years [...] Sign Reading Time Taken Comments Blood Pressure 98/47 11/01/2017 4:00 PM EST Pulse 66 11/01/2017 1:26 PM EST Temperature - - Respiratory Rate 16 11/01/2017 3:01 PM EST Oxygen Saturation 96% 11/01/2017 4:00 PM EST Inhaled Oxygen Concentration - - Weight 58.1 kg (128 lb) 11/01/2017 1:26 PM EST Height - - Body Mass Index 21.97 10/03/2017 12:45 PM EST documented in this encounter Discharge Instructions * Discharge Instructions* Ayde Bradford RN - 11/01/2017 3:50 PM EST Colonoscopy and polyp removal What to expect after the procedure You may feel a little more gassy or bloated than usual, this is normal. You should expect the return of normal bowel function in the next 2 to 3 days. Because some polyps were removed, you may see a little blood with the next few bowel movements, this should be a small amount ( less than a few tablespoons) and will resolve on it's own. ACTIVITY Because of the sedation that you received Your judgement and reaction time are effected ?? Go home and rest for the remainder for the day. You may resume your normal activities tomorrow ?? Change from one position to the next slowly because you may lose your balance unexpectedly. ?? Be careful on stairs, as you may be unsteady. ?? Avoid strenuous activity for 48 to 72 hrs FOR THE NEXT 24 HRS ?? DO NOT DRIVE OR OPERATE MACHINERY ?? DO NOT DRINK ALCOHOLIC BEVERAGES ?? DO NOT SIGN LEGAL DOCUMENTS ?? If you are a smoker: DO NOT SMOKE WHILE YOU ARE ALONE Diet ?? Start by eating small portions of foods that ordinarily will not upset your stomach, avoid gas producing foods for the next few days. ?? Be gentle with what you choose to start with ?? Drink plenty of fluids ( unless your doctor has told you not to). ?? A soft diet may be helpful for the next 3 days as this may help to keep the stools soft Medicines Avoid medicines that influence the way your blood clots for the next week. These would include anti-inflammatory medicine, such as ibuprofen( Advil, Motrin) and naproxen ( Aleve). If you need something for discomfort, Tylenol (Acetaminophen) is safe if used as directed. Your Doctor will tell you when to restart your prescribed blood thinners The IV site-- slight tenderness, or redness is normal, you can use warm compresses if you get concerned. If the tenderness +/or redness increases or foul drainage and a red streak occurs, please contact your PCP immediately. When should you call for help? Call 911 anytime you think you may need emergency care. For example If you pass out (loss of consciousness) If you pass maroon or bloody stools If you have severe belly pain Call your healthcare provider or seek immediate medical care if: Your stools are black or tar like Your stools have streaks of blood that is more pronounced with each BM You have belly pain, or your belly is swollen and firm You vomit You have a fever You are very dizzy Watch closely for changes in your health, and be sure to contact your doctor if you have any problems. Your Doctor will let you know when you will need your next colonoscopy. The results of your test and your risk for colorectal cancer will help your doctor decide how often you need to be checked. Tuesday-Tuesday Same Day Endo [phone]-[phone] Otherwise contact [phone] and ask to speak to the wreath and garland maker hand media relations intern Follow up care is a young part of your treatment and safety. Be sure to make and go to all appointments, and call your doctor if you are having problems. Discharge instructions reviewed with patient who expresses understanding * Patient Instructions* Alexandre Ribera MD - 11/01/2017 2:54 PM EST Please see Recommendations in the Provation procedure report which is documented in the procedural note in E-DH. documented in this encounter Medications at Time of Discharge Medication Sig Dispensed Refills Start Date End Date KELNOR 35, 28, 1-35 mg-mcg Tablet TAKE ONE TABLET BY MOUTH EVERY DAY SKIP PLACEBO WEEK 2 05/24/2017 05/04/2018 LORazepam (ATIVAN) 1 mg Tablet TAKE ONE TABLET BY MOUTH TWICE A DAY NEEDED 0 06/21/2017 05/04/2018 ondansetron (ZOFRAN-ODT) 4 mg Tablet, Rapid Dissolve TAKE 1 TABLET BY MOUTH EVERY 6 HOURS NEEDED 0 07/13/2017 05/04/2018 multivitamin with minerals Tablet Take by mouth. 05/04/2018 sertraline (ZOLOFT) 50 mg Tablet Take 100 mg by mouth. 2017 busPIRone (BUSPAR) 10 mg Tablet Take 10 mg by mouth daily. 11/17/2017 documented as of this encounter Progress Notes * Ayde Bradford RN - 11/01/2017 5:17 PM EST This pt. Had extreme nausea not relieved by zofran & she refused promethazine. Finished her IVF, given an emesis bag & gave her post procedure instructions documented in this encounter H&P Notes * Alexandre Ribera MD - 11/01/2017 2:16 PM EST Gastroenterology and Hepatology Pre-Procedure History and Physical Exam Procedure: Colonoscopy Indication: Altered bowel habit, weight loss, nausea There is no problem list on file for this patient. EXAM: HEENT: Airway examined, oropharynx clear Mallampati Score: I (soft palate, uvula, fauces, tonsillar pillars visible) LUNGS: Clear to auscultation HEART: Regular rate and rhythm, normal S1, S2 ABDOMEN: Normal bowel sounds, soft, non tender, non distended, A/P Proceed with the planned endoscopic procedure. ASA 1 - Normal health patient Sedation Plan: anesthesia Risks and benefits of the procedure explained to the patient. Consent signed. documented in this encounter Miscellaneous Notes * Op Note - Alexandre Ribera MD - 11/01/2017 2:52 PM EST [facility] Operative Note Patient Name: Jerome Robledo : [id number] MR#: [id number] Case Date: 11/01/2017 Surgeon: Surgeon(s) and Role: * Alexandre Ribera MD - Primary Preoperative diagnosis: Chronic abdominal pain and alternating bowel habits, 30lb weight loss (CONSULT) Postoperative diagnosis: Colon polyp, random rectal biopsies taken Procedure(s) (LRB): COLONOSCOPY, DIAGNOSTIC (N/A) Anesthesia: MAC Attestation: Case Date: 11/01/2017 ALEXANDRE RIBERA MD 11/01/2017 Full procedure note is documented under the Procedure section of eD. documented in this encounter Plan of Treatment Upcoming Encounters Date Type Department Care Team (Late st Contact Info) Description 10/26/2024 3:45 PM EST Office Visit Dermatology at [place] [address] [place] [address] Duglas Raymond MD [address], [place] [address] documented as of this encounter Procedures Procedure Name Priority Date/Time Associated Diagnosis Comments SPECIMEN TO PATHOLOGY Routine 11/01/2017 2:56 PM EST SPECIMEN TO PATHOLOGY Routine 11/01/2017 2:56 PM EST SURGICAL PATHOLOGY REPORT Routine 11/01/2017 2:55 PM EST COLONOSCOPY FLEXIBLE, WITH BX (WRVU 3.56) 11/01/2017 2:20 PM EST Chronic abdominal pain COLONOSCOPY, POLYPECTOMY, REMOVAL LESION BY SNARE (WRVU 4.57) 11/01/2017 2:20 PM EST Chronic abdominal pain COLONOSCOPY Routine 11/01/2017 2:11 PM EST documented in this encounter Results * Specimen to Pathology (11/01/2017 2:56 PM EST) AP Specimen 11/01/2017 2:56 PM EST 11/01/2017 3:38 PM EST Narrative [facility] - 11/01/2017 3:38 PM EST Specimen requisition ordered. ??Separate Pathology report to follow Resulting Agency Comment Spec In Lab Alexandre Canales MD PATHOLOGY/CYTOLO GY ORDERABLES [facility] [place] [address] * Specimen to Pathology (11/01/2017 2:56 PM EST) AP Specimen 11/01/2017 2:56 PM EST 11/01/2017 3:38 PM EST Narrative [facility] - 11/01/2017 3:38 PM EST Specimen requisition ordered. ??Separate Pathology report to follow Resulting Agency Comment Spec In Lab Alexandre Canales MD PATHOLOGY/CYTOLO GY ORDERABLES [facility] [place] [address] * Surgical Pathology Report (11/01/2017 2:55 PM EST) Final Diagnosis [id number] ? Location: 4T; EA; A The signing pathologist has (i) examined the relevant preparation(s) for the specimen(s) and (ii) rendered or confirmed the diagnosis(es). . ?Surgical Pathology DIAGNOSIS A - Sigmoid colon, 25 cm, ?? polypectomy: Tubular adenoma. B - Rectum, colon, random, ?? biopsy: Rectal mucosa within normal limits. Congo red stain is negative for amyloid. CR-PX Electronically signed by: ??Gagan Benavides MD Verified: ??11/08/2017 ?Pathologist Performed at: ??-[facility] Dept. of Pathology, [place], [place] CLINICAL INFORMATION Specimen Submitted: A - sigmoid polyp at 25cm B - random rectal colon biopsies ? amyloid Clinical History: 32yo female change in bowel habits, n/v weight loss, history of benign amyloid tumor Clinical Diagnosis: ? Amyloid SPECIMEN PROCESSING A - Labeled/Fixativ e: Sigmoid polyp 25 cm, formalin. Quantity/Size: Single, 0.5 cm. Tissue Description: Soft red polyp. Sections/Proces sing: (T1) B - Labeled/Fixativ e: Random rectal colon biopsies, formalin. Quantity/Size: Six, 0.3-0.5 cm. Tissue Description: Soft romero tissue. Sections/Proces sing: (T2) ??gian 11/08/2017 6:32 AM EST [facility] GI Biopsy 11/01/2017 2:55 PM EST 11/01/2017 2:55 PM EST GI Biopsy 11/01/2017 2:55 PM EST 11/01/2017 2:55 PM EST Alexandre aCnales MD PATHOLOGY/CYTOLO GY ORDERABLES [facility] [place] [address] * COLONOSCOPY (11/01/2017 2:11 PM EST) COLONOSCOPY [facility] Endoscopy ___ Procedure Date: 11/01/2017 2:11 PM ? Patient Name: Jerome Robledo ? Date of : 1985 ? Age: 32 ? Order #: [id number] ? Instrument Name: [id number] ? ___ Procedure: ? Colonoscopy Indications: ? Change in bowel habits, Weight loss Providers: ? Alexandre Ribera MD, Kristi ? ANIKA Ochoa, Dinh Alfonso, Stake Setter Referring MD: ?Tayler Gutiérrez MD Medicines: ? Sedation Required Anesthesia Staff ? Assistance Complications: ? No immediate complications. ___ Procedure: ? Pre-Anesthesia Assessment: ? - Prior to the procedure, a History ? and Physical was performed, and ? patient medications, allergies and ? sensitivities were reviewed. The ? patient's tolerance of previous ? anesthesia was reviewed. ? - The risks and benefits of the ? procedure and the sedation options ? and risks were discussed with the ? patient. All questions were answered ? and informed consent was obtained. ? - Abdominal Examination: bowel sounds ? present, abdomen soft and non-tender, ? no masses or organomegaly noted. ? - CV Examination: normal. ? - Mental Status Examination: alert ? and oriented. ? - Respiratory Examination: clear to ? auscultation. ? - ASA Grade Assessment: I - A normal, ? healthy patient. ? - After reviewing the risks and ? benefits, the patient was deemed in ? satisfactory condition to undergo the ? procedure. ? - Monitored anesthesia care under the ? supervision of an anesthesiologist ? was determined to be medically ? necessary for this procedure based on ? patient's history of problems with ? anesthesia. ? - The heart rate, respiratory rate, ? oxygen saturations, blood pressure, ? adequacy of pulmonary ventilation, ? and response to care were monitored ? throughout the procedure. ? - The physical status of the patient ? was re-assessed after the procedure. ? The procedure, indications, benefits, ? risks and alternatives were explained ? to the patient. Specifically ? discussed were potential ? complications including, but not ? limited to, bleeding, perforation, ? infection, missing a cancer, and ? adverse medication reactions. The ? patient was placed in the left ? lateral decubitus position, and a ? digital rectal exam was performed. ? The Colonoscope was inserted in the ? anus and under direct visualization, ? advanced to the terminal ileum. ? Careful inspection was made as the ? colonoscope was withdrawn. The ? colonoscopy was performed without ? difficulty. The patient tolerated the ? procedure well. The quality of the ? bowel preparation was excellent. ? Findings: ? The terminal ileum appeared normal. ? A 4 mm polyp was found in the sigmoid colon. The ? polyp was sessile. The polyp was removed with a hot ? snare. Resection and retrieval were complete. ? The exam was otherwise without abnormality. ? Rectal biopsies obtained. ? Normal vascular pattern throughout. ? Moderate Sedation: ? Not applicable - See Anesthesia documentation Impression: ?- The examined portion of the ileum ? was normal. ? - One 4 mm polyp in the sigmoid ? colon, removed with a hot snare. ? Resected and retrieved. ? - The examination was otherwise ? normal. Recommendation: ?- Await pathology results. ? - Repeat colonoscopy in 5 years for ? surveillance based on pathology ? results (if polyp an adenoma). ? Attending Participation: ? I personally performed the entire procedure. ? Alexandre Ribera MD 11/01/2017 3:21:01 PM This report has been signed electronically. Number of Addenda: 0 Note Initiated On: 11/01/2017 2:11 PM PROVATION 11/01/2017 2:11 PM EST Tayler Gutiérrez MD GENERAL SURGICAL ORDERABLES [employer]OVATION documented in this encounter Visit Diagnoses Not on filedocumented in this encounter Administered Medications Inactive Administered Medications - up to 3 most recent administrations Medication Order MAR Action Action Date Dose Rate Site lactated Ringers infusion 100 mL/hr, Intravenous, CONTINUOUS, Starting on Tue11/01/17 at 1345, Until Tue11/01/17 at 1550, Endoscopy (Day of Procedure) New Bag 11/01/2017 2:20 PM EST New Bag 11/01/2017 1:45 PM EST 100 mL/hr 100 mL/hr ondansetron (ZOFRAN) injection 4 mg 4 mg, Intravenous, ONCE PRN, 1 dose, Starting on Tue11/01/17 at 1614, Until Tue11/01/17 at 1615, Nausea, Endoscopy (Recovery-Hospital Unit) Given 11/01/2017 4:15 PM EST 4 mg documented in this encounter Active and Recently Administered Medications Times are shown in EST. Continuous Medication Order 10/30/2017 10/31/2017 11/01/2017 lactated Ringers infusion (CANCELED) 100 mL/hr, Intravenous, CONTINUOUS, Starting on Tue11/01/17 at 1345, Until Tue11/01/17 at 1550, Endoscopy (Day of Procedure) 1345 (New Bag - Prov ider: Destiney Gupta RN)1420 (New Bag - Provider: Duglas Winslow CRNA)1422 (Anesthesia Volume Adjustment - Provider: Duglas Winslow CRNA)1455 (Anesthesia Volume Adjustment - Provider: Duglas Winslow CRNA) PRN Medication Order 10/30/2017 10/31/2017 11/01/2017 ondansetron (ZOFRAN) injection 4 mg (COMPLETED) 4 mg, Intravenous, ONCE PRN, 1 dose, Starting on Tue11/01/17 at 1614, Until Tue11/01/17 at 1615, Nausea, Endoscopy (Recovery-Hospital Unit) 1615 (Given - Provid er: Ayde Bradford RN) documented in this encounter Care Teams Portable Canteen Operator Relationship Specialty Start Date End Date Lucia Taylor, SHERRY PCP - General Family Medicine 10/14/17 05/03/24 documented as of this encounter
--- OUTSIDE RECORDS SUMMARY | 2024-10-25 15:46 | XMS_ITS | Encounter Summary ---
Author Organization [facility] Address [facility] [place] [address] Care Team Providers Care Health Plan Manager Name Role Phone Rebekah Greco SHERRY Primary Care Provider [phone] Encounter Details Date Type Department Care Team (Late st Contact Info) Description 03/22/2024 Interpretation Only Radiology Library at [facility] [place] [place] [address] Arsen Young MD [facility] [place] [address] Social History Tobacco Use Types Packs/Day Years [...] 3:45 PM EST Office Visit Dermatology at [place] [address] [facility] [address] [place] [phone] Duglas Raymond MD [address] [facility], [place] [address] documented as of this encounter Procedures Procedure Name Priority Date/Time Associated Diagnosis Comments FILM LIBRARY STORAGE ONLY MR KNEE Routine 03/22/2024 3:00 PM EDT documented in this encounter Results * Film Library- Storage Only MR Knee (03/22/2024 3:00 PM EDT) 05/08/2024 12:2 8 PM EDT Narrative [facility] - 05/08/2024 12:28 PM EDT This exam is auto-finalizing. It's purpose is for storage only. Arsen Young MD IMG FILM LIBRARY OR DERABLES [place], [place] documented in this encounter Visit Diagnoses Not on filedocumented in this encounter Care Teams Health Plan Manager Relationship Specialty Start Date End Date Rebekah Greco APRN [address] [place] [address] PCP - General Internal Medicine 05/04/24 documented as of this encounter
--- OUTSIDE RECORDS SUMMARY | 2024-10-25 15:46 | XMS_ITS | Encounter Summary ---
Author Organization [facility] [place] [address] Care Team Providers Care Email Marketing Processor Name Role Phone Lucia Taylor APRN Primary Care Provider [phone] Encounter Details Date Type Department Care Team (Late st Contact Info) Description 02/29/2024 Ancillary Procedure Radiology Library at [facility] [place] [address] Lucia Taylor, COMPENSATION AND HRIS ANALYST [address] [address] Social History Tobacco Use Types Packs/Day Years [...] 3:45 PM EST Office Visit Dermatology at [place] [address] [facility] [place] [phone] Duglas Raymond MD [address] [facility], [place] [address] documented as of this encounter Procedures Procedure Name Priority Date/Time Associated Diagnosis Comments FILM LIBRARY STORAGE ONLY DX KNEE Routine 02/29/2024 12:00 AM EDT documented in this encounter Results * Film Library- Storage Only DX Knee (02/29/2024 12:00 AM EDT) Narrative [facility] - 04/18/2024 1:38 PM EDT This exam is auto-finalizing. It's purpose is for storage only. Lucia Taylor APRN IMFred FILM LIBRARY OR DERABLES Performing Organization Address City/State/[facility] Co de Phone Number [place], [place] documented in this encounter Visit Diagnoses Not on filedocumented in this encounter Care Teams Email Marketing Processor Relationship Specialty Start Date End Date Lucia Tyalor APRN PCP - General Family Medicine 10/14/17 05/03/24 documented as of this encounter
--- OUTSIDE RECORDS SUMMARY | 2024-10-25 15:46 | XMS_ITS | Encounter Summary ---
Author Organization [facility] Address [facility] [place] [address] Care Team Providers Care Oil Well Drilling Manager Name Role Phone Lucia Taylor APRN Primary Care Provider [phone] Encounter Details Date Type Department Care Team (Late st Contact Info) Description 11/03/2017 Telephone [place] [address] Igor Denney MD [facility] DR GASTROENTEROLOGY [place] [address] Social History Tobacco Use Types Packs/Day Years Used Date Smoking Tobacco: Never Smokeless Tobacco: Never Alcohol Use Standard Drinks/Week Comments No 0 (1 standard drink = 0.6 oz pur e alcohol) Sex and Gender Information Value Date Recorded Sex Assigned at Not on file Gender Identity Not on file Sexual Orientation Not on file documented as of this encounter Miscellaneous Notes * Telephone Encounter - Igor Denney - 11/03/2017 3:26 PM EST Patient returned call, will get capsule video sent from [facility] to review documented in this encounter Plan of Treatment Upcoming Encounters Date Type Department Care Team (Late st Contact Info) Description 10/26/2024 3:45 PM EST Office Visit Dermatology at [address] [phone] Duglas Raymond MD [address] [place] [address] documented as of this encounter Visit Diagnoses Not on filedocumented in this encounter Care Teams Oil Well Drilling Manager Relationship Specialty Start Date End Date Lucia Taylor APRN PCP - General Family Medicine 10/14/17 05/03/24 documented as of this encounter
--- OUTSIDE RECORDS SUMMARY | 2024-10-25 15:46 | XMS_ITS | Encounter Summary ---
Author Organization [facility] [place] [address] Care Team Providers Care Soup Person Name Role Phone Lucia Taylor APRN Primary Care Provider [phone] Encounter Details Date Type Department Care Team (Late st Contact Info) Description 03/22/2024 3:00 PM EDT Ancillary Procedure Radiology Library at [facility] [place] [address] Arsen Young MD [facility] [place] [address] Social History Tobacco Use Types Packs/Day Years [...] 3:45 PM EST Office Visit Dermatology at [place] [address] [facility] [place] [phone] Duglas Raymond MD [address] [facility], [place] [address] documented as of this encounter Procedures Procedure Name Priority Date/Time Associated Diagnosis Comments FILM LIBRARY STORAGE ONLY MR KNEE Routine 03/22/2024 3:00 PM EDT documented in this encounter Results * Film Library- Storage Only MR Knee (03/22/2024 3:00 PM EDT) 05/08/2024 12:2 8 PM EDT Narrative [facility] - 05/08/2024 12:28 PM EDT This exam is auto-finalizing. It's purpose is for storage only. Arsen Young MD IMG FILM LIBRARY OR DERABLES Performing Organization Address City/State/[facility] Co de Phone Number [place], [place] documented in this encounter Visit Diagnoses Not on filedocumented in this encounter Care Teams Soup Person Relationship Specialty Start Date End Date Lucia Taylor APRN PCP - General Family Medicine 10/14/17 05/03/24 documented as of this encounter
--- OUTSIDE RECORDS SUMMARY | 2024-10-25 15:46 | XMS_ITS | Encounter Summary ---
Author Organization [facility] Address [facility] [place] [address] Care Team Providers Care Housing Assistant Name Role Phone Rebekah Greco SHERRY Primary Care Provider [phone] Reason for Referral * Consultation (Routine) - Authorized Specialty Diagnoses / Procedures Referred By Isra gage Referred To Contact Orthopaedics Diagnoses Chondromalacia patellae of right knee Shan Guillen MD [address] [place] [address] Buddy Ang MD [facility] [place] [address] Referral ID Status Reason Start Date Expiration Date Visits Requested Visits Authorized [id number] Authorized Consult, Test & Treat PCP Updated and/or Approved 04/24/2024 04/24/2025 6 6 Encounter Details Date Type Department Care Team (Latest Contact Info) Description 05/04/2024 Transcribe Orders eDH Incoming Referrals [phone] Shan Guillen MD [address] [place] [address] Chondromalacia patellae of right knee Social History Tobacco Use Types Packs/Day Years [...] 3:45 PM EST Office Visit Dermatology at [place] [address] [place] [address] Duglas Raymond MD [address], [place] [address] Scheduled Referrals Name Type Priority Associated Diagnoses Order Schedule Referral to Orthopaedics Outpatient Referral Routine Chondromalacia patellae of right knee Ordered: 05/04/2024 documented as of this encounter Visit Diagnoses Diagnosis Chondromalacia patellae of right knee Chondromalacia of patella documented in this encounter Care Teams Housing Assistant Relationship Specialty Start Date End Date Rebekah Greco APRN [address] [place] [address] PCP - General Internal Medicine 05/04/24 documented as of this encounter
--- OUTSIDE RECORDS SUMMARY | 2024-10-25 15:46 | XMS_ITS | Encounter Summary ---
Author Organization [facility] Address [facility] [place] [address] Care Team Providers Care Hardware Designer Name Role Phone Lucia Taylor APRN Primary Care Provider [phone] Reason for Visit * Auth/Cert Specialty Diagnoses / Procedures Referred By Isra t Referred To Contact Diagnoses Unspecified abdominal pain Weight loss Chronic abdominal pain and laternating bowel habits, 30lb weight loss Procedures PRO COLONOSCOPY, DIAGNOSTIC PRO ANESTH, LWR INTESTINE, SCREENING COLONOSCOPY COLONOSCOPY, DIAGNOSTIC Referral ID Status Reason Start Date Expiration Date Visits Re quested Visits Authorized [id number] 1 1 Encounter Details Date Type Department Care Team (Late st Contact Info) Description 11/01/2017 1:45 PM EST - 11/01/2017 2:30 PM EST Surgery [place] [address] Alexandre Ribera MD [facility] [place] [address] COLONOSCOPY, POLYPECTOMY, REMOVAL LESION BY SNARE (WRVU 4.57) Social History Tobacco Use Types Packs/Day Years [...] Sign Reading Time Taken Comments Blood Pressure 110/46 11/01/2017 1:26 PM EST Pulse 66 11/01/2017 1:26 PM EST Temperature - - Respiratory Rate - - Oxygen Saturation 99% 11/01/2017 1:26 PM EST Inhaled Oxygen Concentration - - [...] to be checked. Tuesday-Tuesday Same Day Endo [phone] Otherwise contact [phone] and ask to speak to the executive manager validation analyst Follow up care is a young part [...] Ribera MD - 11/01/2017 2:52 PM EST [facility] [place] Patient Name: Jerome Robledo : [id number] MR#: [id number] Case Date: 11/01/2017 Surgeon: Surgeon(s) and Role: * Alexandre Ribera MD - Primary Preoperative diagnosis: Chronic abdominal pain and alternating bowel habits, 30lb weight loss (CONSULT) Postoperative diagnosis: Colon polyp, random rectal biopsies taken Procedure(s) (LRB): COLONOSCOPY, DIAGNOSTIC (N/A) Anesthesia: MAC Attestation: Case Date: 11/01/2017 ALEXANDRE RIBERA MD 11/01/2017 Full procedure note is documented under the Procedure section of [facility]. documented in this encounter Plan of Treatment Upcoming Encounters Date Type Department Care Team (Late st Contact Info) Description 10/26/2024 3:45 PM EST Office Visit Dermatology at [place] [address] [place] [address] Duglas Raymond MD [address], XAVIER A DERMATOLOGY [place], [place] [id number] documented as of this encounter Procedures Procedure [...] PM EST 11/01/2017 3:38 PM EST Narrative [facility] - 11/01/2017 3:38 PM EST Specimen requisition ordered. ??Separate Pathology report to follow Resulting Agency Comment Spec In Lab Alexandre Canales MD PATHOLOGY/CYTOLO GY ORDERABLES [facility] [place] [address] * Specimen to Pathology (11/01/2017 2:56 PM EST) AP Specimen 11/01/2017 2:56 PM EST 11/01/2017 3:38 PM EST Narrative [facility] - 11/01/2017 3:38 PM EST Specimen requisition ordered. ??Separate Pathology report to follow Resulting Agency Comment Spec In Lab Alexandre Canales MD PATHOLOGY/CYTOLO GY ORDERABLES [facility] [place] [address] * Surgical Pathology Report (11/01/2017 2:55 PM EST) Final Diagnosis [id number] ? Location: 4T; EA; A The signing [...] Benavides MD Verified: ??11/08/2017 ?Pathologist Performed at: ??-[facility] [place], [place], [place] CLINICAL INFORMATION Specimen Submitted: A - [...] sing: (T2) ??gian 11/08/2017 6:32 AM EST [facility] GI Biopsy 11/01/2017 2:55 PM EST 11/01/2017 2:55 PM EST GI Biopsy 11/01/2017 2:55 PM EST 11/01/2017 2:55 PM EST Alexandre Canales MD PATHOLOGY/CYTOLO GY ORDERABLES [facility] [place] [address] * COLONOSCOPY (11/01/2017 2:11 PM EST) COLONOSCOPY [facility] Endoscopy ___ Procedure Date: 11/01/2017 2:11 PM ? Patient Name: Jerome Robledo ? N: [id number] ? Date of : 1985 ? Age: 32 ? Order #: [id number] ? Instrument Name: [id number] ? ___ Procedure: ? Colonoscopy Indications: ? Change in bowel habits, Weight loss Providers: ? Alexandre Ribera MD, Kristi ? ANIKA Ochoa, Dinh Alfonso, Sow Farm Manager Referring MD: ?Tayler Gutiérrez MD Medicines: ? [...] PROVATION documented in this encounter Visit Diagnoses Diagnosis Chronic abdominal pain Abdominal pain, unspecified site documented in this encounter Administered Medications Inactive Administered [...] (CANCELED) 100 mL/hr, Intravenous, CONTINUOUS, Starting on e 11/01/17 at 1345, Until Tu11/01/17 at 1550, Endoscopy (Day of Procedure) 1345 (New Bag - Prov ider: Destiney Gupta RN)1420 (New Bag - Provider: Duglas [place] CRNA)1422 (Anesthesia Volume Adjustment - Provider: Duglas [place] CRNA)1455 (Anesthesia Volume Adjustment - Provider: Duglas [place] CRNA) PRN Medication Order 10/30/2017 10/31/2017 11/01/2017 ondansetron (ZOFRAN) injection 4 mg (COMPLETED) 4 mg, Intravenous, ONCE PRN, 1 dose, Starting on Tue /16/18 at 1614, Until Tue11/01/17 at 1615, Nausea, Endoscopy (Recovery-Hospital Unit) 1615 (Given - Provid er: Ayde Bradford RN) documented in this encounter Care Teams Hardware Designer Relationship Specialty Start Date End Date Lucia Taylor, LEVER MILLER PCP - General Family Medicine 10/14/17 05/03/24 documented as of this encounter
--- OUTSIDE RECORDS SUMMARY | 2024-10-25 15:46 | XMS_ITS | Encounter Summary ---
Author Organization [facility] Address [facility] [place] [address] Care Team Providers Care Coppersmith Apprentice Name Role Phone Lucia Taylor APRN Primary Care Provider [phone] Reason for Visit * Auth/Cert Specialty Diagnoses / Procedures Referred By Isra gage Referred To Contact Diagnoses jejunual intusception Procedures PRG GI TRACT IMAGING, INTRALUMINAL, ESOPHAGUS THROUGH ILEUM, W INTERP & REPORT VIDEO CAPSULE ENDOSCOPY Referral ID Status Reason Start Date Expiration Date Visits Re quested Visits Authorized [id number] 1 1 Encounter Details Date Type Department Care Team (Late st Contact Info) Description 02/02/2018 7:30 AM EDT - 02/02/2018 8:00 AM EDT [place] [address] Mihai Mary MD [facility] [place] [address] VIDEO CAPSULE ENDOSCOPY (WRVU 2.24) Social History Tobacco Use Types Packs/Day Years Used Date Smoking Tobacco: Never Smokeless Tobacco: Never Alcohol Use Standard Drinks/Week Comments No 0 (1 standard drink = 0.6 oz pur e alcohol) Sex and Gender Information Value Date Recorded Sex Assigned at Not on file Gender Identity Not on file Sexual Orientation Not on file documented as of this encounter Medications at Time of Discharge Medication Sig Dispensed Refills Start Date End Date metoclopramide (REGLAN) 5 mg Tablet Take 1 tablet by mouth 3 times daily. 90 tablet 01/12/2018 05/04/2018 scopolamine (TRANSDERM-SCOP) 1 mg over 3 days patch [address] 1 patch onto the skin every 3 days. 10 patch 2 11/17/2017 05/04/2018 KELNOR 1/35, 28, 1-35 mg-mcg Tablet TAKE ONE TABLET [...] mg Tablet Take 100 mg by mouth. 05/04/2018 documented as of this encounter Plan of Treatment Upcoming Encounters Date Type Department Care Team (Late st Contact Info) Description 10/26/2024 3:45 PM EST Office Visit Dermatology at [place] [address] [place] [id number] Duglas Raymond MD [address], [place] [address] documented as of this encounter Procedures Procedure Name Priority Date/Time Associated Diagnosis Comments VIDEO CAPSULE ENDOSCOPY Routine 02/02/2018 8:50 AM EDT VIDEO CAPSULE ENDOSCOPY (WRVU 2.24) 02/02/2018 7:30 AM EDT Chronic nausea documented in this encounter Results * VIDEO CAPSULE ENDOSCOPY (02/02/2018 8:50 AM EDT) VIDEO CAPSULE ENDOSCOPY [facility] Endoscopy Procedure Date: 02/02/2018 8:50 AM ? Patient Name: Jerome Robledo ? Date of : 1985 ? Age: 32 ? Order #: [id number] ? Instrument Name: ? Procedure: ? Video capsule endoscopy Indications: ? Abnormal abdominal CT, Nausea Providers: ? Mihai Mary MD Referring : ?Igor Barrett MD Medicines: ? None Complications: ? No immediate complications. Procedure: ? Pre-Anesthesia Assessment: ? - Prior to the procedure, a brief ? History was performed and patient ? medications and allergies were ? reviewed. The patient is competent. ? The risks and benefits of the ? procedure were discussed with the ? patient, specifically missed lesion, ? retained capsule or obstruction ? requiring surgery for retrieval. All ? questions were answered and informed ? consent was obtained. Patient ? identification and proposed procedure ? were verified by the physician in the ? pre-procedure area. Mental Status ? Examination: normal. Prophylactic ? Antibiotics: The patient does not ? require prophylactic antibiotics. ? Prior Anticoagulants: The patient has ? taken no previous anticoagulant or ? antiplatelet agents. After reviewing ? the risks and benefits, the patient ? was deemed in satisfactory condition ? to undergo the procedure. The ? anesthesia plan was to use no ? sedation or anesthesia. ? The Sensor Array was applied to the ? patient's abdomen with adhesive pads ? and connected to the Data Recorder ? around the waist. The Data Recorder ? was checked to ensure green light was ? flashing. The patient was then ? instructed to ingest the M2A capsule ? and provided a glass of water. This ? was accomplished without difficulty. ? The patient was then given ? instructions for eating and drinking ? and was instructed to periodically ? monitor the Data Recorder throughout ? the day to insure proper ? transmission. Approximately eight ? hours later the patient returned for ? removal of the Sensor Array. ? The video capsule endoscopy was ? accomplished without difficulty. The ? patient tolerated the procedure well. ? Findings: ? Images of the esophagus, stomach and small bowel were ? obtained from the swallowed capsule and reviewed. ? On review of the recorded study, it was determined ? that the study lasted 7-hours 59-minutes 59-seconds ? (total recording time). The capsule enteroscope ? entered the cecum prior to the end of the recording. ? The first gastric image was captured at 0-hours ? 0-minutes and 25-seconds. There are multiple images ? of the pylorus and duodenal bulb ? The first sustained duodenal image was captured at ? 1-hour 7-minutes and 42-seconds. ? There was no evidence of significant pathology in the ? small bowel (entire small bowel). ? The first cecal image was captured at 4-hours ? 53-minutes and 30-seconds for a total small bowel ? imaging time of 3-hours 45-minutes. ? Moderate Sedation: ? Not applicable, no sedation required. Impression: ?- Normal small bowel. ? - Normal video capsule endoscopy. ? - The complete results of this study ? (for the same date as above) are ? available in the video capsule ? equipment database, and these results ? were personally reviewed by me. Recommendation: ?- Return to GI clinic as previously ? scheduled. ? Attending Participation: ? I personally performed the entire procedure. ? Dr. Eduar Mary ___ Mihai Mary MD 02/12/2018 4:56:50 PM Number of Addenda: 0 Note Initiated On: 02/12/2018 4:50 PM PROVATION 02/02/2018 8:50 AM EDT Unknown GENERAL SURGICAL ORD ERABLES PROVATION documented in this encounter Visit Diagnoses Diagnosis Chronic nausea Nausea alone documented in this encounter Care Teams Coppersmith Apprentice Relationship Specialty Start Date End Date Lucia Taylor, SOFTWARE VERIFICATION ENGINEER PCP - General Family Medicine 10/14/17 05/03/24 documented as of this encounter
--- OUTSIDE RECORDS SUMMARY | 2024-10-25 15:46 | XMS_ITS | Encounter Summary ---
Author Organization [facility] Address [facility] [place] [address] Care Team Providers Care Lead Radiologic Technologist Name Role Phone Lucia Taylor APRN Primary Care Provider [phone] Encounter Details Date Type Department Care Team (Late st Contact Info) Description 11/02/2017 Orders [place] [address] Igor Denney MD [facility] [place] [address] Bilious vomiting with nausea Social History Tobacco Use Types Packs/Day Years Used Date Smoking Tobacco: Never Smokeless Tobacco: Never Alcohol Use Standard Drinks/Week Comments No 0 (1 standard drink = 0.6 oz pur e alcohol) Sex and Gender Information Value Date Recorded Sex Assigned at Not on file Gender Identity Not on file Sexual Orientation Not on file documented as of this encounter Progress Notes * Igor Denney - 11/02/2017 10:31 AM EST Case discussed in multidisciplinary conference today, plan to pursue push enteroscopy followed by likely capsule placement. documented in this encounter Plan of Treatment Upcoming Encounters Date Type Department Care Team (Late st Contact Info) Description 10/26/2024 3:45 PM EST Office Visit Dermatology at [address] [address] Duglas Raymond MD [address] [place] [address] RD, [place] [address] documented as of this encounter Visit Diagnoses Diagnosis Bilious vomiting with nausea documented in this encounter Care Teams Lead Radiologic Technologist Relationship Specialty Start Date End Date Lucia Taylor APRN PCP - General Family Medicine 10/14/17 05/03/24 documented as of this encounter
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
--- OUTSIDE RECORDS SUMMARY | 2024-10-25 15:46 | XMS_ITS | Encounter Summary ---
Author Organization Formerly [facility] [place] [address] Care Team Providers Care Md Pediatric Allergist Name Role Phone Lucia Taylor APRN Primary Care Provider [phone] Reason for Referral * Diagnostic Test (Routine) - Closed Specialty Diagnoses / Procedures Referred By Contac t Referred To Contact Radiology Diagnoses Chronic abdominal pain Procedures MRI Brain wwo Contrast (Generic) Igor Denney MD [facility] [place] [address] [place] [address] Referral ID Status Reason Start Date Expiration Date V isits Requested Visits Authorized [id number] Closed Specialty Service Requested 10/06/2017 12/04/2017 1 1 Reason for Visit * Diagnostic Test (Routine) - Closed Specialty Diagnoses / Procedures Referred By Contac t Referred To Contact Radiology Diagnoses Chronic abdominal pain Procedures MRI Brain wwo Contrast (Generic) Igor Denney MD [facility] [place] [address] [place] [address] Referral ID Status Reason Start Date Expiration Date V isits Requested Visits Authorized [id number] Closed Specialty Service Requested 10/06/2017 12/04/2017 1 1 Encounter Details Date Type Department Care Team (Latest Contact Info) Description 10/14/2017 7:58 AM EST - 10/14/2017 11:59 PM EST [place] [address] Lisa Sage MD [facility] [place] [address] Chronic abdominal pain Discharge Disposition: Home Social History Tobacco Use Types Packs/Day Years Used Date Smoking Tobacco: Never Smokeless Tobacco: Never Sex and Gender Information Value Date Recorded Sex Assigned at Not on file Gender Identity Not on file Sexual Orientation Not on file documented as of this encounter Last Filed Vital Signs Vital Sign Reading Time Taken Comments Blood Pressure 94/56 10/14/2017 9:53 AM EST Pulse 54 10/14/2017 8:30 AM EST Temperature 36.6 ??C (97.9 ??F) 10/14/2017 8:25 AM ES T Respiratory Rate - - Oxygen Saturation 94% 10/14/2017 9:53 AM EST Inhaled Oxygen Concentration - - Weight - - Height - - Body Mass Index - - documented in this encounter Medications at Time of Discharge Medication Sig Dispensed Refills Start Date End Date JACI , 1-35 mg-mcg Tablet TAKE ONE TABLET BY [...] as of this encounter Progress Notes * Silvia Lou RN - 10/14/2017 9:30 AM EST [id number]: Arrived while pt still in MRI machine. Snapshot of events/report received by life safety RN. 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 MRI complete, pt removed from room. Pt pale in appearance, dried lips, continuous nausea noted. Pt stating my hands and feet feel cold, pt assessed, warm blankets provided. Continuing bp monitoring every 3 minutes, as well as continuous pulse oximetry and telemetry monitoring.Vitals remain consistent regardless of body positioning. Please see doc flowsheets for detailed numbers. Discussed options with pt regarding going home vs emergency room. Pt reasonable and states that she feels the same as she did at baseline and would rather go home. Stayed with pt and monitored for an hour. Vital signs and monitoring obtained while lying on stretcher, sitting on stretcher, and standing. Dizziness and nausea remained prior to arrival, during scan, and post scan despite any and all efforts. Again, this is unchanged from baseline. Assisted pt with getting dressed, piv removed from right antecubital, mother retrieved from waiting area. Pt sipped chuy-mckenzie without emesis. Mother to drive pt home and can stay with her if needed. Transpo/volunteer services arrived and pt escorted to parking garage via wheelchair. Lifesafety RN updated on events post discharge. documented in this encounter Plan of Treatment Upcoming Encounters Date Type Department Care Team (Late st Contact Info) Description 10/26/2024 3:45 PM EST Office Visit Dermatology at [place] [address] [place] [id number] Duglas Raymond MD [address], [place] [address] documented as of this encounter Procedures Procedure Name Priority Date/Time Associated Diagnosis Comments MRI BRAIN WWO CONTRAST (GENERIC) Routine 10/14/2017 9:20 AM EST Chronic abdominal pain POCT GLUCOSE Routine 10/14/2017 8:25 AM EST documented in this encounter Results * MRI Brain wwo Contrast (Generic) (10/14/2017 9:20 AM EST) Anatomical Region Laterality Modality Head Magnetic Resonan ce Impressions 10/14/2017 10:08 AM EST Normal brain MRI. Narrative 10/14/2017 10:08 AM EST EXAMINATION: MRI BRAIN WWO CONTRAST (GENERIC) CLINICAL HISTORY: Chronic nausea and vomiting, rule out intracranial mass TECHNIQUE: MR of the brain performed prior to and following intravenous administration of 12 mL Dotarem. COMPARISON: None FINDINGS: The ventricles are normal in size and contour. There is no intracranial mass, mass effect, or shift. Posterior fossa, and craniocervical junction are normal. Skull base, and pituitary are normal. Major intracranial flow voids are normal. Diffusion images are normal. Cerebral parenchyma is normal in signal. Procedure Note Willard Mariano MD - 10/14/2017 EXAMINATION: MRI BRAIN WWO CONTRAST (GENERIC) CLINICAL HISTORY: Chronic nausea and vomiting, rule out intracranialmass TECHNIQUE: MR of the brain performed prior to and following intravenous administration of 12 mL Dotarem. COMPARISON: None FINDINGS: The ventricles are normal in size and contour. There is no intracranial mass, mass effect, or shift. Posterior fossa, andcraniocervical junction are normal. Skull base, and pituitary are normal. Majorintracranial flow voids are normal. Diffusion images are normal. Cerebral parenchymais normal in signal. IMPRESSION Normal brain MRI. 10:08 AM Lisa Sage MD IMG MRI ORDERABLES * POCT Glucose (10/14/2017 8:25 AM EST) Glucose, POC 96 65 - 199 mg/dL [facility] Comment: Supplemental ranges: <140 mg/dL before meals <180 mg/dL all other times of the day Blood specimen (specimen) 10/14/2017 8:25 AM EST 10/14/2017 8:25 AM EST Lisa Sage MD POINT OF CARE TEST O RDERABLES [facility] [place] [address] documented in this encounter Visit Diagnoses Diagnosis Chronic abdominal pain Abdominal pain, unspecified site documented in this encounter Administered Medications Inactive Administered Medications - up to 3 most recent administrations Medication Order MAR Action Action Date Dose Rate Site gadoterate meglumine (DOTAREM) 0.5 mmol/mL injection 0-20 mL/kg 0-20 mL/kg/dose, Intravenous, ONCE PRN, 1 dose, Starting on Tue10/14/17 at 1002, Until Tue10/14/17 at 0900, Per Protocol, Radiology Contrast, Routine Given 10/14/2017 9:00 AM EST 12 mLs documented in this encounter Care Teams Md Pediatric Allergist Relationship Specialty Start Date End Date Lucia Taylor, REELER OPERATOR PCP - General Family Medicine 10/14/17 05/03/24 documented as of this encounter
--- OUTSIDE RECORDS SUMMARY | 2024-10-25 15:46 | XMS_ITS | Data Portability ---
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 08/14/2024 16:11:41 08/14/2024 US, thyroid completed [email or web address] [facility] (Radiology) [facility] [place], [address], 08/14/2024 16:11:42 10/03/2024 MRI imaging report completed INTERFACE [place] [id number] [facility] [place], [address] 10/03/2024 08:38:55 Procedure Notes None recorded. Medical Equipment None Reported. [...] propionate 50 mcg/actuati on nasal spray,suspe nsion [place] 1 spray into both nostrils twice a [...] height Body mass index (BMI) Body weight Respiratory rate Body temperature Oxygen saturation Oxygen saturation in Arterial blood by Pulse oximetry Heart rate Provider Name and Address Organization Details Last Updated DateTime 162.56 cm 23.8 kg/m2 28382.5 5 g 18 /min 98.3 [degF] 98 % 98 % 80 /min Gisell Garay RN [facility] 18:10:01 Date Recorded Systolic blood pressure Diastolic blood pressure Provider Name and Address Organization Details Last Updated DateTime 12/09/2023 109 mm[Hg] 74 mm[Hg] [address], [place], [address], [facility] 12/09/2023 18:49:50 Date Recorded Body height Body mass index (BMI) Body weight Respiratory rate Oxygen saturation Oxygen saturation in Arterial blood by Pulse oximetry Heart rate Body temperature Systolic blood pressure Diastolic blood pressure Provider Name and Address Organization Details Last Updated DateTime 162.56 cm 23.7 kg/m2 58646.7 5 g 19 /min 99 % 99 % 60 /min 98.5 [degF] 116 mm[Hg] 73 mm[Hg] Nancy Ross MA [facility] 03/15/202 4 17:22:37 Date Recorded Body height Body mass index (BMI) Body weight Body temperature Oxygen saturation Oxygen saturation in Arterial blood by Pulse oximetry Heart rate Respiratory rate Systolic blood pressure Diastolic blood pressure Provider Name and Address Organization Details Last Updated DateTime 4 162.56 cm 24 kg/m2 62464.9 3 g 97.7 [degF] 99 % 99 % 63 /min 18 /min 98 mm[Hg] 62 mm[Hg] Hedy Lomeli MA [facility] 4 10:32:29 Date Recorded Body height Body mass index (BMI) Body weight Oxygen saturation Oxygen saturation in Arterial blood by Pulse oximetry Heart rate Respiratory rate Body temperature Systolic blood pressure Diastolic blood pressure Provider Name and Address Organization Details Last Updated DateTime 4 162.56 cm 23.2 kg/m2 42703.9 7 g 99 % 99 % 82 /min 16 /min 97.9 [degF] 106 mm[Hg] 69 mm[Hg] Borck lorenz MA [facility] 4 16:02:52 Date Recorded Body height Body mass index (BMI) Body weight Body temperature Oxygen saturation Oxygen saturation in Arterial blood by Pulse oximetry Heart rate Respiratory rate Systolic blood pressure Diastolic blood pressure Provider Name and Address Organization Details Last Updated DateTime 4 162.56 cm 22.3 kg/m2 77583.0 1 g 100.4 [degF] 99 % 99 % 77 /min 18 /min 101 mm[Hg] 67 mm[Hg] Hedy Lomeli MA [facility] 4 18:18:07 Social History Question Answer Notes LastModified by Organizat ion Details LastModified Time Tobacco Smoking Status Never Smoker Nancy Ross MA [facility], [facility] 11/05/2023 11:25:56 What Was The Date Of Your Most Recent Tobacco Screening? 03/30/2024 [email or web address] Information not available 03/30/2024 Has Tobacco Cessation Counseling Been Provided? Yes [email or web address] Information not available 11/08/2023 On What Date Was Tobacco Cessation Counseling Provided? 03/30/2024 [email or web address] Information not available 03/30/2024 Do You Or Have You Ever Used Any Other Forms Of Tobacco Or Nicotine? No [email or web address] Information not available 11/08/2023 Sex: Female Functional [...] 08/26/2023 06:02:27 influenza, unspecified formulation 3 completed Gislel Garay RN [facility], [facility] 11/09/2023 08:57:40 Past Encounters Encounter ID Performer Location Encounter Start Date Encounter Closed Date Diagnosis/Indication Diagnosis SNOMED-CT Code Diagnosis ICD10 Code Diagnosis Note [id number] AVIVA CARSON PA-C [address] [place] [address] 11/05/2023 10:49:35 11/05/2023 12:08:02 Bronchitis [id number] J40 Patient has had a cough now for 3 weeks. Lung exam is reassuring without signs of pneumonia or wheeze. Oxygen saturation is appropriat e. Her COVID and flu test is negative. She did have COVID just before Marleen. She has an albuterol inhaler at home but feels like it is . We will refill this and add a spacer. Her is about to go out of town for a day so she went to be checked out today before she was home alone as a single mom with 2 kids. I have reassured her that there is no signs of pneumonia currently. Educated her to continue to watch for worsening of symptoms such as fever, worsening cough. This would indicate need seek reevaluati on. Patient voiced understand ing. [id number] LUIS ARMANDO FINCH [address] [place] [address] 11/08/2023 16:00:35 11/08/2023 17:25:31 Cough 57336895 R05.9 38 year old female with continued dry, hacking cough after recent COVID illness. No recent fevers, but is concerned for more sensation of chest heaviness and subjective wheezing today, despite continued symptomati c treatment. Reports headache due to frequent cough, but denies nasal congestion , sinus pressure, post nasal drip, or sore throat. O2 sat 99% on room air, lung sounds with no audible wheezes or crackles.Viki douglass, offered nebulizer treatment, patient declined. She will have CXR performed this evening, and will call with results. CXR results are returned, with no acute findings, no pneumonia. Will Rx prednisone burst for reactive airway/per sistant cough, to continue fluids, OTC cough medication s, PRN AYESHA. [id number] LUIS ARMANDO FINCH [address] [place] [address] 11/12/2023 09:28:54 11/12/2023 10:39:48 Acute sinusitis [id number] J01.90 38 year old female presents for continued symptoms since a recent COVID + illness, approximat chacha 1 month ago, and then another separate viral URI with cough and congestion that she seemed to contract shortly after recovering from COVID. Has had negative f/u COVID and flu testing, normal CXR obtained 11/08/23. Most concerned for constant cough, and since last visit, has developed ear pressure, dizziness. Has had minimal to no changes in symptoms with use of PRN AYESHA and prednisone burst. Today, L TM slightly bulging and mildly injected. Lung sounds are completely clear, O2 sat 98%. Discussed cough may be due to persisting head congestion and post nasal drip, does have sinus tenderness of exam today, and due to duration and double worsening, will treat presumed ABRS with Augmentin BID X 7 days, RF delfina galeas provided. [id number] AVIVA CARSON PA-C [address],[facility] [address] [place] [address] 12/09/2023 17:58:44 12/09/2023 19:11:58 Chronic hios-YMUOM-66 syndrome [id number] U09.9 Patient has had ongoing cough since COVID. She has been seen here several times and has most recently been seen at her primary care office on 11/21 and with pulmonolog y on 11/29. She had the same pain in her lungs that she does now when she was evaluated by pulmonolog y they did put her on an inhaler. She has been using it. She at times feels like the cough is improving but she is worried about the pain in the muscles and feels like she has a strain because of this. I considered other etiologies such as pleurisy, pericardit is, costochond ritis, PE. Presentati on does not seem to be consistent with pleurisy or pericardit is. She may have some localized costochond ritis. I recommend she continue to treat with Tylenol, ibuprofen. Also considered PE in great detail. Wells score of 0, PERC negative, very little suspicion for possibilit y of PE. She was hoping we could help provide some degree of relief for her symptoms. Femi burnham this clinic cannot prescribe any controlled substances . She is understand ing of that. She does not tolerate those well. She has been using lidocaine patches with little relief. I recommend that she try to be more consistent with combinatio n ibuprofen and Tylenol. Recommend 600 mg ibuprofen with 1 g of Tylenol every 6 hours as needed. She can do cyclobenza inocente at nighttime as needed and if can tolerate it during the day can use daytime. I will provide some additional prescripti ons for cyclonolan brower because she is going to be running out of that. I have recommende d to her however if pain is truly to the point that she is not being able to tolerate this, not sleeping, worsening or not improving that she may need to consider emergency room evaluation . She does not feel that she is there. [id number] AVIVA CARSON PA-C [address] [place] [address] 12/30/2023 17:12:56 12/30/2023 18:07:51 Rib pain 039900806 R07.81 Patient is experienci ng right-side d rib pain after ongoing cough now for 13 weeks status post COVID. About 6 weeks ago she pulled a muscle because of coughing and had prolonged course of improvemen t. Actually felt like she was beginning to improve but again this week seems to have been worsening. It does seem likely that she could have pulled a muscle and/or is experienci ng things such as costochond ritis. She does ensure to me that she does not have any change of pain in this area with eating or drinking, making me less concern for biliary involvemen t. This very much seems to be related to coughing and breathing. I am going to obtain chest x-ray to ensure she does not have rib fracture. Less likely concern for dislocatio n or underlying pneumonia. I do not think this is pleurisy given the localized nature of discomfort . I will also refill her cyclobenza inocente 10 mg tablets for total of #10 with instructio jules to take at nighttime. If chest x-ray returns unremarkab le and D-dimer is negative may also consider adding short course of prednisone . Dyspnea 950662884 R06.00 She is having pain with breathing which I think is related to this muscle strain and/or possibilit y of costochond ritis. See above for more detail. I am concerned however that she may have underlying blood clot given the degree of pain she reports with breathing and seems to be very focused on this right side. She does not have pain or swelling in her legs. Her oxygen saturation , heart rate and respiratio n rate are within normal range. This has been ongoing now for several weeks and I think at this point we should ensure that she does not have a developing blood clot. I discussed with her options to obtain D-dimer but she understand s that if this does come back positive we will need to proceed with CT scan of the lungs. She is understand ing and agreeable to plan. Blood draw done today will have results back tomorrow we will discuss further management from there. [id number] AVIVA CARSON PA-C [address] [place] [address] 02/29/2024 09:20:50 02/29/2024 11:25:10 Pain of right knee joint [id number] 66520 M25.561 Patient developed pain in her right knee last night while walking downstairs . Had a crunching like sensation. She has not done anything traumatica lly to injure bone or ligaments. She had a lateral release surgery done 20 years ago and will occasional ly feel popping with this. On exam she has some mild swelling. She does not have enough fluid to suggest need for aspiration . She does not have redness or warmth to suggest infection. I have discussed starting with x-ray to evaluate for joint space abnormalit y and possibilit y of degree of arthritis. Patient agreeable to plan. Because she is having great difficulty with walking she prefers crutches to help with ambulation . These are provided as well as a hinged knee brace and Pierre wrap. She endorses that all of these do help give relief. Once x-rays are available for review I will communicat e those to her. May or may not be followed up with ultrasound of the knee and/or referral to orthopedic s. X-ray returns showing possible avulsion fracture at the head of the fibula however patient does not endorse a mechanism of injury in which I would expect this to be the case. She has had some discomfort in that knee popping more frequently over the last couple months and then as she stepped down onto a stair last night felt some popping and cracking. I do not think that this is enough of the mechanism that should cause any sort of avulsion fracture. She does not endorse that she had injury to the ligaments with this simple step down. I will send referral to orthopedic s for further evaluation . In the meantime because she is having so much discomfort and pain with flexing and standing she will continue to use the crutches for ambulation as well as the Pierre wrap and hinged knee brace. Recommend ice, elevation, rest and anti-infla mmatories as needed. Patient agreeable to plan. [id number] AVIVA CARSON PA-C [address] [place] [address] 03/30/2024 14:59:42 03/30/2024 16:40:17 Pain of right knee joint 4426771511 93101 M25.561 Patient continuing to have right knee pain and is here seeking referral for second opinion because she is unsure about the first recommenda tion given to her. She wants to ensure she is making the appropriat e decision regarding this knee and how she should proceed. [id number] LUIS ARMANDO FINCH [address] [place] [address] 08/07/2024 17:51:43 08/07/2024 19:21:45 Thyroid function tests abnormal [id number] R94.6 39 year old female today presents due to concerns for abnormal TSH results found on labs ordered by [facility] endocrinol ogist on 07/20/24 , with several [...] due to risk for thyroiditi s/hyperthy roid concerns.Chase luceroiewed with patient that we can order initial labs and ultrasound to start the process of work up, but ANY abnormal results would have to be followed by PCP, [facility], or la[facility] navarro endocrinol ogy, and patient verbalized understand ing. Health Concerns Section Related Observation LastModified by Organization Detai ls LastModified Time None Recorded Concern Status LastModified by Organization Details LastModified Time None Recorded Advance Directives Directive None Recorded Payers Encounter Date Sequence Insurance Name Policy Number Policy Gale Covered Member ID Gale Member ID Guarantor Name 12/09/2023 1 [place] [facility] (POS) Martin Robledo [id number] Cano Robledo 12/30/2023 1 [place] Martin Robledo [id number] Jerome Robledo 02/29/2024 1 [place] Martin Robledo [id number] Jerome Robledo 03/30/2024 1 [place] Martin Robledo [id number] Jerome Robledo 08/07/2024 1 [place] Martin Robledo [id number] Jerome Robledo Notes Date Note Type Note Provider Name and Address Organization Details Recorded Time 12/09/2023 text/html Jerome is a 38-year-old female who had COVID and has had post-COVID cough. She has been seen here several times as well as her primary care office and pulmonology most recently on 11/29. She has coughed so much she feels like she has pulled a muscle. She feels pain most notably in the right anterior lateral lower lung field. She points at the area between the ribs. Does not feel that she can touch the pain. This is causing her great discomfort. She has been using IcyHot, Salonpas, ibuprofen, Tylenol, cyclobenzaprine. She states she is having difficulty sleeping because of this. She states she has to roll into a ball to cough because of the pain. Sometimes that area will have muscle spasm. She has pain if she coughs, sneeze, tries to yell at the children. She has never had blood clot. No hemoptysis. No pain or swelling of bilateral lower extremities. No exogenous estrogen. No trauma. No recent surgeries. No family history of clots. [address], [place], [address], [facility]. 12/09/2023 19:27:57 12/30/2023 text/html Jerome is a 38-year-old female who presents with concerns for ongoing right-sided rib pain. She was diagnosed with COVID, 13 weeks ago and has had lingering cough since. About 6 weeks ago she reports that she pulled a muscle because of coughing. I actually saw her for this about 3 weeks ago for this. She is also been seen by her primary care provider and by pulmonology. She was finally started to get improvement with use of Flexeril but has since run out. She has also been icing, heating, using Tylenol and ibuprofen as well as wrapping the area to help with discomfort. She does seem to get some relief by pushing on it or holding compression. She does endorse pain with breathing, coughing, sneezing. She did feel like she was improving but now seems to be worsening again. She has not had onset of fevers or chills. No nausea or vomiting. Normal bowel bladder. Denies pain or swelling in her legs. No history of blood clots. AVIVA CARSON PA-C [address], [place], [address], [facility]. 12/31/2023 15:51:09 02/29/2024 text/html Jerome is a 38-year-old female who presents with right knee pain that began last night. She reports that she had surgery 20 years ago of the right knee because she ran too much. Had a knee scope which resulted in a lateral release. She reports that she will occasionally hear a popping sensation which has been happening more frequently recently however last night when walking down the stairs she heard a lot of crunching and had pain behind the knee. She has not done anything to injure the knee. No trauma. No recent increase of walking, running, hiking. She has been using ice, Tylenol, ibuprofen with minimal relief. At baseline she has pain with full extension. She not only has pain with extension but also flexion. She can weight-bear but has increasing pain with that. She typically does sleep with something under the knee. [address], [place], [address], [facility]. 02/29/2024 18:17:04 03/30/2024 text/html Jerome is a 38-year-old female who presents requesting referral for second opinion regarding ongoing right knee pain. Please see initial note from 02/29/2024. She was seen at the [facility] in [place] and they recommended injections and surgical procedure. She is a little bit concerned about the surgical procedure and is wanting to ensure that this is the best option for treatment. She feels like she was given limited information regarding both the injections and the procedure itself.She has not had any worsening of the knee pain. It still continues to feel unstable and is painful. She was using crutches for ambulation after her first visit here on 02/28 and then was able to go down to 1 crutch and now is wearing knee brace and hobbling around. [address], [place], [address], [facility]. 03/30/2024 16:34:50 08/07/2024 text/html Patient has had several weeks [...] of 1.29 (WNL) and upon review of [facility] results was also performed:07/16/24, with level 0.42,06/20/2024 with level 0.61 No prior history of hyper or hypothyroidism. Patient has had previous pregnancies, with no history of hyperthyroid. She contacted PCP today, advised she cannot be seen for several weeks for acute care visit. 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 Patient has transfer of embryo performed 07/04/24, but had complications per [facility] note:Most recent transfer has resulted in inappropriate rise in hCG and empty uterus. NL adnexa. No other symptoms suggestive of ectopic . However with empty uterine cavity and current hCG 1175 mIU/ml I have advised pt to have Methotrexate 50mg/m2 to treat with risk for an ectopic . She has consented to the treatment. Plan is to repeat hCG in 1 week. NANCY RENNER, FRAUD REPRESENTATIVE [address], [place], [address], [facility]. 08/07/2024 20:14:11 OBGyn Episode No OBEpisode recorded.
--- OUTSIDE RECORDS SUMMARY | 2024-10-25 15:46 | XMS_ITS | Clinical Summary ---
Author Organization [facility] Address [facility] [place] [address] Care Team Providers Care Big Data Developer Name Role Phone Mile Grecoyce Jagruti POWELL Primary Care Provider [phone] Allergies Active Allergy Reactions Criticality Noted Date Comments Codeine Nausea And Vomiting High 06/27/2024 Epinephrine 07/06/2017 At dentist office convulsion blacked out Hydrocodone Other (See Comments) 04/05/2017 Reports getting very sick to her stomach from strong pain medications Oxycodone Other (See Comments) 04/05/2017 Reports getting very sick to her stomach from strong pain medications Makes patient feel sick. Unclassified Drug 03/30/2017 Reports getting very sick to her stomach from strong pain medications such as oxycontin, hydrocodone; believes that she can tolerate dilaudid. Medications Medication Sig Dispensed Refills Start Date End Date Status estradioL (Estrace) 2 mg tablet Take 2 mg by mouth 6 times daily. Active aspirin 81 mg chewable tablet Take 81 mg by mouth daily. Active naltrexone (Depade) 50 mg tablet Take 3 mg by mouth daily. Active vitamin with [id number]-FA Tablet Take by mouth. Active Active Problems No known active problems Social History Tobacco Use Types Packs/Day Years Used Date Smoking Tobacco: Never Smokeless Tobacco: Never Alcohol Use Standard Drinks/Week Comments No 0 (1 standard drink = 0.6 oz pur e alcohol) Sex and Gender Information Value Date Recorded Sex Assigned at Not on file Gender Identity Not on file Sexual Orientation Not on file Last Filed Vital Signs Vital Sign Reading Time Taken Comments Blood Pressure 95/48 05/04/2018 9:27 AM EDT Pulse 51 05/04/2018 9:27 AM EDT Temperature 36.6 ??C (97.9 ??F) 10/14/2017 8:25 AM ES T Respiratory Rate 16 11/01/2017 3:01 PM EST Oxygen Saturation 96% 11/01/2017 4:00 PM EST Inhaled Oxygen Concentration - - Weight 61.2 kg (135 lb) 06/27/2024 3:30 PM EDT v erbal Height 162.6 cm (5' 4) 06/27/2024 3:30 PM EDT v erbal Body Mass Index 23.17 06/27/2024 3:30 PM EDT Plan of Treatment Upcoming Encounters Date Type Department Care Team (Late st Contact Info) Description 10/26/2024 3:45 PM EST Office Visit Dermatology at [place] [address] [facility] [place] [phone] Duglas Raymond MD [address], [place] [address] Health Maintenance Due Date Last Done Comments CT Colonography 1984 FIT DNA 1984 FIT 1984 Sigmoidoscopy 1984 HIV screen 2002 Hepatitis C Screening 2002 Hepatitis B vaccine (0-59 yrs) (1) 2003 Tetanus/Diphtheria/Pertussis Vaccines (1 - Tdap) 2003 HPV test 2014 PAP Smear 2014 Colonoscopy 11/01/2022 11/01/2017, 10/17, 11/01/2017 Colorectal Cancer Screening 11/01/2022 Breast Cancer Share Decision Needed 2024 Breast Cancer screening 2024 Covid-19 Vaccine ( - season) 2024 Influenza (Flu) vaccine (1 o f 1 - Influenza standard series) 06/17/2024 Sigmoidoscopy (10 year) with FIT yearly 11/01/2027 11/01/2017, 11/01/2017, 11/01/2017 Procedures Procedure Name Priority Date/Time Associated Diagnosis Comments COLONOSCOPY Routine 11/01/2017 2:11 PM EST from Last 3 Months or Most Recently Relevant to Health Maintenance Results * COLONOSCOPY (11/01/2017 2:11 PM EST) COLONOSCOPY [facility] Endoscopy ___ Procedure Date: 11/01/2017 2:11 PM ? Patient Name: Jerome Robledo ? Date of : 1985 ? Age: 32 ? Order #: [id number] ? Instrument Name: [id number] ? ___ Procedure: ? Colonoscopy Indications: ? Change in bowel habits, Weight loss Providers: ? Alexandre Escalante MD, Kristi ? Don, ANIKA, Dinh Alfonso, Latin Teacher Referring MD: ?Tayler Gutiérrez MD Medicines: ? [...] personally performed the entire procedure. ? Alexandre Escalante MD 11/01/2017 3:21:01 PM This report has been signed electronically. Number of Addenda: 0 Note Initiated On: 11/01/2017 2:11 PM PROVATION 11/01/2017 2:11 PM EST Tayler Gutiérrez MD GENERAL SURGICAL ORDERABLES PROVATION from Last 3 Months or Most Recently Relevant to Health Maintenance Care Teams Big Data Developer Relationship Specialty Start Date End Date Rebekah Greco, DATA ANALYSIS INTERN [address] [place], [place] [id number] PCP - General Internal Medicine 05/04/24
--- OUTSIDE RECORDS SUMMARY | 2024-10-25 15:46 | XMS_ITS | Encounter Summary ---
Author Organization [facility] Address [facility] [place] [address] Care Team Providers Care Business Applications Manager Name Role Phone Lucia Taylor APRN Primary Care Provider [phone] Encounter Details Date Type Department Care Team (Late st Contact Info) Description 02/22/2018 Orders [place] [address] Igor Denney MD [facility] [place] [address] Social History Tobacco Use Types Packs/Day Years [...] 3:45 PM EST Office Visit Dermatology at [place] [address] [facility] [place] [phone] Duglas Raymond MD [address] [facility], [place] [address] documented as of this encounter Visit Diagnoses Not on filedocumented in this encounter Care Teams Business Applications Manager Relationship Specialty Start Date End Date Lucia Taylor APRN PCP - General Family Medicine 10/14/17 05/03/24 documented as of this encounter
--- OUTSIDE RECORDS SUMMARY | 2024-10-25 15:46 | XMS_ITS | Encounter Summary ---
Author Organization [facility] [place] [address] Care Team Providers Care Reference Data Expert Name Role Phone Lucia Taylor APRN Primary Care Provider [phone] Reason for Visit * Auth/Cert Specialty Diagnoses / Procedures Referred By Isra t Referred To Contact Diagnoses Unspecified abdominal pain Weight loss Chronic abdominal pain and laternating bowel habits, 30lb weight loss Procedures PRO COLONOSCOPY, DIAGNOSTIC PRO ANESTH, LWR INTESTINE, SCREENING COLONOSCOPY COLONOSCOPY, DIAGNOSTIC Referral ID Status Reason Start Date Expiration Date Visits Re quested Visits Authorized [id number] 1 1 Encounter Details Date Type Department Care Team (Late st Contact Info) Description 11/01/2017 2:19 PM EST Anesthesia [place] [address] Brock Ly MD Anesthesia Record Procedure Summary Procedure Name Responsible Anesthesiologist Anesthesia Start Time Anesthesia Stop Time COLONOSCOPY, POLYPECTOMY, REMOVAL LESION BY SNARE (WRVU 4.57) Brock Ly MD 11/01/17 1419 11/01/17 1502 Events Date Time Event Comment 11/01/2017 1404 1419 Start 1420 AN Verify 1420 An Start Data 1420 An Induction 1423 Anesthesia Ready 1456 an stop data 1459 Recovery or ICU Handoff Shanti ent care was transferred to the destination unit staff after review of the patient's medical history, current anesthetic/surgical status and plan, according to the Provider Handoff Checklist. 1502 Stop Meds Name Total IV Lidocaine 100 mg Propofol 100 mg Propofol INF 302.12 mg lactated Ringers infusion 400 mL * Agents Name O2 * Blood No blood administrations on file. Lines, Drains, and Airways Type Details Placement Removal (RETIRED) Peripheral IV Line - Single Lumen 11/01/17; 1329; basilic vein (medial side of arm), right; oolw-sky-szglkv catheter system; 20 gauge; distraction, intradermal injection, tolerated well; 11/01/17; 1550 11/01/17 1329 by Destiney Gupta RN 11/01/17 1550 by Ayde Bradford RN documented in this encounter Social History Tobacco Use Types Packs/Day Years Used Date Smoking Tobacco: Never Smokeless Tobacco: Never Alcohol Use Standard Drinks/Week Comments No 0 (1 standard drink = 0.6 oz pur e alcohol) Sex and Gender Information Value Date Recorded Sex Assigned at Not on file Gender Identity Not on file Sexual Orientation Not on file documented as of this encounter OR Notes * Anesthesia Postprocedure Evaluation - Brock Ly MD - 11/01/2017 3:39 PM EST [facility] Department of Anesthesiology Post-procedure Note Patient: Jerome Robledo Procedure Summary Date Anesthesia Start Anesthesia Stop Room / Location 11/01/17 1419 [facility] Procedure Diagnosis Surgeon Responsible Provider COLONOSCOPY, POLYPECTOMY, REMOVAL LESION BY SNARE (WRVU 4.67) (N/A ); COLONOSCOPY FLEXIBLE, WITH BX(WRVU 3.66) (N/A ) Chronic abdominal pain (Chronic abdominal pain and laternating bowel habits, 30lb weight loss; (CONSULT)) Alexandre Escalante MD Hoyt, Matthew J, MD All Anesthesia Providers: Anesthesiologist: Brock Ly MD FRAUD REPRESENTATIVE: Duglas Winslow CRNA Most Recent Vitals: 11/01/17 1501 BP: Pulse: Resp: 16 SpO2: Pain 0 (11/01/17 1501) Patient Location: PACU/[facility] Level of Consciousness: Awake and Alert Pain Management: Satisfactory Analgesia PONV: None Cardiovascular Status: At Baseline Respiratory Status: At Baseline Postoperative Fluid Status: Intravascular EUvolemia Possible Anesthetic Complications: NONE apparent at time of evaluation Final Primary Anesthesia Type: MAC (The anesthetic type performed was the same as planned.) Comments: * Anesthesia Preprocedure Evaluation - Brock Ly MD - 11/01/2017 2:04 PM EST Pre-Anesthesia Evaluation for: Jerome Robledo a 32 y.o. female. Procedure(s): COLONOSCOPY, DIAGNOSTIC There are no active problems to display for this patient. No past medical history on file. No past surgical history on file. Social History Substance Use Topics ??? Smoking status: Never Smoker ??? Smokeless tobacco: Never Used ??? Alcohol use Not on file History Drug Use Not on file Allergies Allergen Reactions ??? Epinephrine At dentist office convulsion blacked out ??? Unclassified Drug Reports getting very sick to her stomach from strong pain medications such as oxycontin, hydrocodone; believes that she can tolerate dilaudid. Medications: MAR and/or home medications have been reviewed. Physical Exam: There were no vitals filed for this visit. There is no height or weight on file to calculate BMI. Airway Assessment: Mallampati: II TM distance: >3 FB Neck ROM: full Cardiovascular Assessment: cardiovascular exam normal Pulmonary Assessment: pulmonary exam normal Dental Assessment: - normal exam Misc Assessment: IV access: Peripheral line Anesthesia Plan: ASA 2 MAC, with a(n) intravenous induction 32 yo female here for colonoscopy for evaluation of abdominal pain and weight loss. Vomits and nausea with pain meds so requires anesthesia. Plan for MAC Region - Other Informed Consent: Anesthetic plan and risks discussed with patient. PAT Staff Note documented in this encounter Plan of Treatment Upcoming Encounters Date Type Department Care Team (Late st Contact Info) Description 10/26/2024 3:45 PM EST Office Visit Dermatology at [place] [address] [facility] [place] [address] Duglas Raymond MD [address], [place] [address] documented as of this encounter Visit Diagnoses [...] 1:45 PM EST 100 mL/hr 100 mL/hr lidocaine (PF) (XYLOCAINE) 100 mg/5 mL (2 %) injection PRN, Starting on Tue11/01/17 at 1420, Until Tue11/01/17 at 1502, Anesthesia Intra-op, Routine Given 11/01/2017 2:20 PM EST 100 mg propofol (DIPRIVAN) 10 mg/mL bolus injection (Anesthesia) PRN, Starting on Tue11/01/17 at 1420, Until Tue11/01/17 at 1502, Anesthesia Intra-op Given 11/01/2017 2:20 PM EST 100 mg propofol (DIPRIVAN) infusion CONTINUOUS PRN, Starting on Tue11/01/17 at 1420, Until Tue11/01/17 at 1502, Anesthesia Intra-op, Routine Rate/Dose Change 11/01/2017 2:32 PM EST 200 mcg/kg/min 69.7 mL/hr New Bag 11/01/2017 2:20 PM EST 150 mcg/kg/min 52.3 mL/h r documented in this encounter Care Teams Reference Data Expert Relationship Specialty Start Date End Date Lucia Taylor APRN PCP - General Family Medicine 10/14/17 05/03/24 documented as of this encounter
--- OUTSIDE RECORDS SUMMARY | 2024-10-25 15:46 | XMS_ITS | Encounter Summary ---
Author Organization [facility] Address [facility] [place] [address] Care Team Providers Care Snack Steward Name Role Phone Lucia Taylor APRN Primary Care Provider [phone] Reason for Visit * Auth/Cert Specialty Diagnoses / Procedures Referred By Isra gage Referred To Contact Diagnoses jejunual intusception Procedures PRG GI TRACT IMAGING, INTRALUMINAL, ESOPHAGUS THROUGH ILEUM, W INTERP & REPORT VIDEO CAPSULE ENDOSCOPY Referral ID Status Reason Start Date Expiration Date Visits Re quested Visits Authorized [id number] 1 1 Encounter Details Date Type Department Care Team (Late st Contact Info) Description 02/02/2018 7:39 AM EDT - 02/02/2018 10:09 PM EDT Hospital Encounter [place] [address] Mihai Mary MD [facility] [place] [address] Discharge Disposition: Home Social History Tobacco Use [...] 3:45 PM EST Office Visit Dermatology at [place] [address] [facility] [place] [phone] Duglas Raymond MD [address], [place] [address] documented as of this encounter Procedures Procedure Name Priority Date/Time Associated Diagnosis Comments VIDEO CAPSULE ENDOSCOPY Routine 02/02/2018 8:50 AM EDT VIDEO CAPSULE ENDOSCOPY (WRVU 2.24) 02/02/2018 7:30 AM EDT Chronic nausea documented in this encounter Results * VIDEO CAPSULE ENDOSCOPY (02/02/2018 8:50 AM EDT) VIDEO CAPSULE ENDOSCOPY [facility] Endoscopy Procedure Date: 02/02/2018 8:50 AM ? Patient Name: Jerome Robledo ? Date of : 1985 ? Age: 32 ? Order #: [id number] ? Instrument Name: ? Procedure: ? Video [...] on filedocumented in this encounter Care Teams Snack Steward Relationship Specialty Start Date End Date Lucia Taylor APRN PCP - General Family Medicine 10/14/17 05/03/24 documented as of this encounter
--- OUTSIDE RECORDS SUMMARY | 2024-10-25 15:46 | XMS_ITS | Encounter Summary ---
Author Organization [facility] Address [facility] [place] [address] Care Team Providers Care Clinical Education Manager Name Role Phone Mile Grecoyce Jagruti POWELL Primary Care Provider [phone] Reason for Visit * Reason Comments Establish Care RIGHT KNEE PAIN * Consultation (Routine) - Authorized Specialty Diagnoses / Procedures Referred By Isra gage Referred To Contact Orthopaedics Diagnoses Chondromalacia patellae of right knee Shan Guillen MD [address] [place] [address] Buddy Ang MD [facility] [place] [address] Referral ID Status Reason Start Date Expiration Date Visits Requested Visits Authorized [id number] Authorized Consult, Test & Treat PCP Updated and/or Approved 04/24/2024 04/24/2025 6 6 Encounter Details Date Type Department Care Team (Latest Contact Info) Description 06/27/2024 3:30 PM EDT Office Visit [place] [address] Arsen Young MD [facility] [place] [address] Patellofemoral disorder of right knee Social History Tobacco Use [...] Sign Reading Time Taken Comments Blood Pressure - - Pulse - - Temperature - - Respiratory Rate - - Oxygen Saturation - - Inhaled Oxygen Concentration - - Weight 61.2 kg (135 lb) 06/27/2024 3:30 PM EDT v erbal Height 162.6 cm (5' 4) 06/27/2024 3:30 PM EDT v erbal Body Mass Index 23.17 06/27/2024 3:30 PM EDT documented in this encounter Progress Notes * Katelyn Panchal MD - 06/27/2024 3:30 PM EDT Images from the original note were not included. Arthroplasty History/Previous Knee Surgery: Lateral release, [facility], 2002 Chief Complaint: Chief Complaint Patient presents with Establish Care RIGHT KNEE PAIN This patient was referred [place] [address] I.D.: Jerome Robledo is a 39 y.o. year old female being seen today to discuss her right knee. Her history and physical exam were reviewed in detail. She Is here as a third opinion after seeing someone at [facility] and Dr. Guillen at [facility] regarding her right knee anterior knee pain. She has 25 year history of anterior R knee pain, had history of arthroscopic diagnostic [facility] Since then she has continued to have R anterior knee pain with MRI demonstrating some chrondromalacia of medial patellar facet. She has tried CSI's in the knee as well however with limited benefit. She has never had GASCA (Synvisc) injections. Takes tylenol and ibuprofen PRN but no narcotics. No major medical issues. 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 Some days she can do elliptical training. Was doing mild running up until February this year when she felt everything crunched in her right knee and she could not bear weight. She was partial WB on crutches for a couple weeks and then referred her to [facility]. Works out every night for 1 hour before doing paperwork for [employer] she says. Also feels like a month history of left knee buckling and giving away. ASSOCIATED DIAGNOSES: She does not reports problems with the ipsilateral hip, does report problems with the contralateralknee and does not have a history of spine or back issues. ALLERGIES Allergies Allergen Reactions Codeine Nausea And Vomiting Epinephrine At dentist office convulsion blacked out Hydrocodone Other (See Comments) Reports getting very sick to her stomach from strong pain medications Oxycodone Other (See Comments) Reports getting very sick to her stomach from strong pain medications Makes patient feel sick. Unclassified Drug Reports getting very sick to her stomach from strong pain medications such as oxycontin, hydrocodone; believes that she can tolerate dilaudid. Allergies to metals: None known. SOCIAL HISTORY: reports that she has never smoked. She has never used smokeless tobacco. She reports that she does not drink alcohol and does not use drugs. 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 VITALS: BP Readings from Last 1 Encounters: 05/04/18 95/48 Pulse Readings from Last 1 Encounters: 05/04/18 51 Height: 162.6 cm (5' 4) (verbal) Weight: 61.2 kg (135 lb) (verbal) Body mass index is 23.17 kg/m??. PHYSICAL EXAM: Constitution: Patient sits in the clinic today in no apparent distress. The patient is alert and oriented x 3. Appearance is age-appropriate, affect is similarly appropriate. I have made the following determinations: Knee Exam: Right Prior surgery on this joint: Yes, no large surgical scars visible Gait Abnormality: Normal Knee ROM: Extension:0 Flexion: 130 Alignment: 0-4 degrees Neutral Stability: A/P Translation <5mm. Varus (lateral stability) <5mm Valgus (medial stability) <5mm Extension La degrees or less Patella Tracking: Normal, apprehension with terminal extension and terminal flexion given patient's feeling like it will give way but can feel PF joint tracking appropriately during course of ROM Skin Integrity: Normal Pulses Palpable: Right PT: Yes Right DP:Yes Motor/Sensory: Distal Motor: Normal Distal Sensory: Normal Quadriceps Strength: 5 RADIOGRAPHIC ANALYSIS: Together, we reviewed her radiographs obtained previously which demonstrate no significant evidenceof OA in any compartment. MRI reviewed which shows chondromalacia of medial patellar facet with no intraaticular loose bodies appreciated or meniscal pathology on personal review. Questionnaire Responses: 06/26/2024 General Health, Prior Treatments, PreExisting Condition, Health Habits, About You PROMIS-10 General Health Good PROMIS-10 Quality of Life Good PROMIS-10 Physical Health Good PROMIS-10 Mental Health Fair PROMIS-10 Social Activity Fair PROMIS-10 Everyday Activities Moderately PROMIS-10 Pain 4 PROMIS-10 Fatigue Moderate PROMIS-10 Social Roles Good PROMIS-10 Anxious or Depressed Sometimes PROMIS PHYSICAL SCORE (range 16-68) 39.8 PROMIS MENTAL SCORE (range 21-68) 38.8 Treatments Tried Regular exercise Heat and ice therapy Brace Physical therapy Acetaminophen (e.g. Tylenol) Over the counter anti-inflammatory drugs (e.g Advil, Aspirin, Aleve) Electrical stimulation (TENS/Transcutaneous Electrical Nerve Stimulation) Injection of steroids or cortisone Prior surgery for this problem Prior Surgery Scope, Lateral release, (20+ years ago) KOOS JR Scores 54.84 TKA Grade 5 Alzheimers or dementia No Cirrohosis or liver disease No HIV/AIDS No Pain in more than one joint in legs Yes Back or neck pain No Heart attack No Heart failure No Unclog/bypass leg arteries No Stroke, blood clot, TIA No Asthma No Emphysema, chronic bronchities, or COPD No Stomach ulcers/peptic ulcer disease No Diabetes No Poor kidney function No Rheumatic condtions No Cancer No Weight (lbs) 140 Height (feet) 5 feet Height (Inches) 4 BMI 24.03 (Normal) Ever used tobacco products No Ever used alcoholic beverages Yes Alcohol frequency Weekly WHO - Alcohol Advice 4 (You are at risk of health and other problems from your current pattern of alcohol use.) Live Alone No Marital situation Schooling More than 4 - year college Combined Household Income $75,000 or more # People Supported 4 Bulgarian, , No, not Bulgarian// Race White Health Literacy Quite a bit Currently working Yes Current job situation Full-time Multiple values from one day are sorted in reverse-chronological order 06/26/2024 Orthope[facility] Response KOOS JR Scores 54.84 06/26/2024 Spine [facility] Response KOOS JR Scores 54.84 ASSESSMENT AND PLAN: Ms. Robledo is a 39 y.o. year old female with R anterior knee pain and chondromalacia of medial patellar facet. 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 She is set up to proceed with GASCA injection in R knee with Dr. Guillen in 2 weeks at end of June and think this is reasonable to continue with this as planned. F/up PRN. June 29, 2024 I had the pleasure of evaluating Jerome Robledo in clinic in conjunction with Dr. Panchal. I have seen andexamined the patient and reviewed the history/physical and I agree with the details as written. Theassessment and plan were formulated in discussion with me and I agree with them as documented. I do not see an operative indication for this patient's knee pain. The patient has patella femoral joint chondromalacia. I think this is the cause. Viscosupplementation is a very reasonable treatmentoption and this is already scheduled with another provider. She can f/u PRN. Arsen Young MD, MSc Division of Adult Reconstructive Timing Machine OperatorPatient Scheduling Coordinator of Orthopaedics Department of Orthopaedics [facility] [phone] [email or web address] documented in this encounter Plan of Treatment Upcoming Encounters Date Type Department Care Team (Late st Contact Info) Description 10/26/2024 3:45 PM EST Office Visit Dermatology at [address] [place] [address] Duglas Raymond MD [address] [place] [address], [place] [address] documented as of this encounter Visit Diagnoses Diagnosis Patellofemoral disorder of right knee Unspecified disorder of lower leg joint documented in this encounter Care Teams Clinical Education Manager Relationship Specialty Start Date End Date Rebekah Greco APRN [address] [place] [address] PCP - General Internal Medicine 05/04/24 documented as of this encounter
--- OUTSIDE RECORDS SUMMARY | 2024-10-25 15:46 | XMS_ITS | Encounter Summary ---
Author Organization [facility]ly [facility] [place] [address] Care Team Providers Care Concrete Rubber Name Role Phone Lucia Taylor APRN Primary Care Provider [phone] Encounter Details Date Type Department Care Team (Late st Contact Info) Description 12/20/2017 [place] [phone] Cecelia Quinones RN Social History Tobacco Use Types Packs/Day Years [...] encounter Miscellaneous Notes * Telephone Encounter - Cecelia Shepherd RN - 12/20/2017 10:54 AM EST Received VM from Jerome. States she has a new sx to add to the constellation of sx. States she developed a rash. States this is similar to the rash she had 4.5 years ago that lasted 6-7 mo. It went away with gluten free diet. States she's still following gluten free diet so rash must be something else. She has OV with dermatology today. Message forwarded to Dr. Denney. documented in this encounter Plan of Treatment Upcoming Encounters Date Type Department Care Team (Late st Contact Info) Description 10/26/2024 3:45 PM EST Office Visit Dermatology at [place] [address] [facility] [place] [address] Duglas Raymond MD [address], XAVIER [place] [address] documented as of this encounter Visit Diagnoses Not on filedocumented in this encounter Care Teams Concrete Rubber Relationship Specialty Start Date End Date Lucia Taylor APRN PCP - General Family Medicine 10/14/17 05/03/24 documented as of this encounter
--- OUTSIDE RECORDS SUMMARY | 2024-10-25 15:46 | XMS_ITS | Encounter Summary ---
Author Organization [facility] Address [facility] [place] [address] Care Team Providers Care Bilingual Recruiter Name Role Phone Tayler Gutiérrez MD Primary Care Provider + Reason for Visit * Diagnostic Test (Routine) - Closed Specialty Diagnoses / Procedures Referred By Isra gage Referred To Contact Radiology Diagnoses Chronic abdominal pain Procedures NM Gastric Emptying Scan Igor Denney MD [facility] [place] [address] [place] [address] Referral ID Status Reason Start Date Expiration Date V isits Requested Visits Authorized [id number] Closed Specialty Service Requested 10/03/2017 10/03/2018 5 5 Encounter Details Date Type Department Care Team (Latest Contact Info) Description 10/12/2017 9:41 AM EST - 10/12/2017 11:59 PM [facility] Hospital Encounter [place] [address] Lisa Sage MD [facility] [place] [address] Discharge Disposition: Home Social History Tobacco Use Types Packs/Day Years Used Date Smoking Tobacco: Never Smokeless Tobacco: Never Sex and Gender Information Value Date Recorded Sex Assigned at Not on file Gender Identity Not on file Sexual Orientation Not on file documented as of this encounter Medications at Time of Discharge Medication Sig Dispensed Refills Start Date End Date KELNOR 135, 28, 1-35 mg-mcg Tablet TAKE ONE TABLET [...] daily. 11/17/2017 documented as of this encounter Plan of Treatment Upcoming Encounters Date Type Department Care Team (Late st Contact Info) Description 10/26/2024 3:45 PM EST Office Visit Dermatology at [place] [address] [facility] [place] [address] Duglas Raymond MD [address] [facility], [place] [address] documented as of this encounter Procedures Procedure Name Priority Date/Time Associated Diagnosis Comments NM GASTRIC EMPTYING SCAN Routine 10/12/2017 1:18 PM EST Chronic abdominal pain documented in this encounter Results * NM Gastric Emptying Scan (10/12/2017 1:18 PM EST) Anatomical Region Laterality Modality Nuclear Medicine Impressions 10/12/2017 2:02 PM EST Normal gastric emptying I have personally reviewed the image(s) and the residents interpretation and agree with the findings, Dean Tellez at 10/12/2017 2:02 PM Narrative 10/12/2017 2:02 PM EST EXAMINATION: NM GASTRIC EMPTYING SCAN CLINICAL HISTORY: Chronic nausea and vomiting s/p bilrroth 1 TECHNIQUE: A standard oatmeal was labeled with 0.5 mCi of technetium-99m sulfur colloid and ingested. Images of the stomach were obtained in the anterior and posterior projections immediately thereafter and 1, 2, and 3 hours later. COMPARISON: None FINDINGS: Activity fills the stomach on the initial images obtained immediately after ingesting the meal. Small bowel is visible at one hour. There is minimal activity present in the stomach at 4 hours. Quantitative analysis: 2 hours: 14 percent remains in the stomach (normal less than 60%) 3 hours: 4 percent remains in the stomach (normal less than 10% at four hours) Procedure Note Dean Tellez MD - 10/12/2017 EXAMINATION: NM GASTRIC EMPTYING SCAN CLINICAL HISTORY: Chronic nausea and vomiting s/p bilrroth 1 TECHNIQUE: A standard oatmeal was labeled with 0.5 mCi of technetium-99msulfur colloid and ingested. Images of the stomach were obtained in the anteriorand posterior projections immediately thereafter and 1, 2, and 3 hourslater. COMPARISON: None FINDINGS: Activity fills the stomach on the initial images obtained immediatelyafter ingesting the meal. Small bowel is visible at one hour. There is minimal activity present in the stomach at 4 hours. Quantitative analysis: 2 hours: 14 percent remains in the stomach (normal less than 60%) 3 hours: 4 percent remains in the stomach (normal less than 10% at fourhours) IMPRESSION Normal gastric emptying I have personally reviewed the image(s) and the residents interpretationand agree with the findings, Dean Tellez at 10/12/2017 2:02 PM Lisa Sage MD [facility] [place] documented in this encounter Visit Diagnoses Not on filedocumented in this encounter Care Teams Bilingual Recruiter Relationship Specialty Start Date End Date Tayler Gutiérrez MD [address] [place] [phone] PCP - General 08/30/14 10/13/17 documented as of this encounter
--- OUTSIDE RECORDS SUMMARY | 2024-10-25 15:46 | XMS_ITS | Encounter Summary ---
Author Organization [facility] Address [facility] [place] [address] Care Team Providers Care Cream Separator Operator Name Role Phone Lucia Taylor APRN Primary Care Provider [phone] Encounter Details Date Type Department Care Team (Late st Contact Info) Description 11/03/2017 Telephone [place] [address] Igor Denney MD [facility] [place] [address] Social History Tobacco Use Types Packs/Day Years [...] Telephone Encounter - Igor Denney - 11/03/2017 3:16 PM EST Called to discuss plan, left VM. documented in this encounter Plan of Treatment Upcoming Encounters Date Type Department Care Team (Late st Contact Info) Description 10/26/2024 3:45 PM EST Office Visit Dermatology at [address] [place] [phone] Duglas Raymond MD [address], [place] [address] documented as of this encounter Visit Diagnoses Not on filedocumented in this encounter Care Teams Cream Separator Operator Relationship Specialty Start Date End Date Lucia Taylor APRN PCP - General Family Medicine 10/14/17 05/03/24 documented as of this encounter
--- OUTSIDE RECORDS SUMMARY | 2024-10-25 15:46 | XMS_ITS | Encounter Summary ---
Author Organization [facility] Address [facility] [place] [address] Care Team Providers Care Electric Locomotive Firer/Fireman Name Role Phone Lucia Taylor APRN Primary Care Provider [phone] Reason for Visit * Reason Comments Follow-up Encounter Details Date Type Department Care Team (Late st Contact Info) Description 11/17/2017 8:30 AM EST Office Visit [place] [address] Igor Denney MD [facility] [place] [address] Chronic nausea Social History Tobacco Use Types [...] Sign Reading Time Taken Comments Blood Pressure 107/59 11/17/2017 8:29 AM EST Pulse 57 11/17/2017 8:29 AM EST Temperature - - Respiratory Rate - - Oxygen Saturation - - Inhaled Oxygen Concentration - - Weight 58.1 kg (128 lb) 11/17/2017 8:29 AM EST Height 162.6 cm (5' 4) 11/17/2017 8:29 AM EST Body Mass Index 21.97 11/17/2017 8:29 AM EST documented in this encounter Progress Notes * Igor Denney - 11/17/2017 8:30 AM EST [facility] Division of Gastroenterology and Hepatology Outpatient Consultation Reason for Visit: Nausea/vomiting Referred by Tayler Gutiérrez ID: Jerome Robledo is a 32 y.o. female with PMHx significant for anxiety who is referred to GI for evaluation of now chronic nausea, vomiting, abdominal pain and altered bowel habits. Active GI Problem List: # Nausea and vomiting - [facility] until October 2016 when she developed nausea, vomiting, and left sided abdominal pain with [id number] unintentional weight loss. - Evaluation at [facility] that included an abdominal ultrasound and [...] to have alemon- sized mass involving the gastrojejunal junction of unclear etiology. A biopsy of the mass wasperformed as well as peripancreatic lymph node biopsy. Pathology revealed that the gastroduodenal mass was benign; however, amyloid was noted in the vascular material. The lymph node was reactive. The specimen was sent to the [facility] for further evaluation for amyloid. Mass spectrometry was performed that supported the diagnosis of amyloidosis; however, subtyping could not be performed due javier inadequate specimen. - Second opinion at [facility] and was seen by Dr. Tijerina and [...] - Capsule study normal - Admitted to [facility] on 07/08/2017 and taken to the OR [...] - [place] brain [place] [facility] [place] [facility] with one polyp - Gastric emptying at [facility] normal Interval events: - She went for gastric emptying, colo and brain MRI all of which were WNL. Her symptoms are essentially stable in comparison to her last visit with frequent nausea and occasional vomiting. She has maintained her weight which is a steady 128 pounds. She is very emotional today crying during the majority of the visit she is frustrated understandably so given the severity of her symptoms. She is starting to feel that we will not find an answer for her symptoms and recalls back to over a year ago when an outside doctor told her it was all in her head. She has been able to work full-time but oftenhas to leave work early due to her symptoms she is fearful that she will have to leave her job if the symptoms are ongoing. She continues to use of Zofran for nausea with little improvement in her nausea. She has tried Phenergan and Compazine in the past both of which made her jittery. She again denies any fevers or chills or bloody vomiting. She again notes that she feels safe at home and has noconcerns about her safety. Review of Systems: Constitutional: weight loss HEENT: [...] Outpatient Prescriptions Medication Sig Dispense Refill ??? ondansetron (ZOFRAN, HYDROCHLORIDE,) 4 mg Tablet Take 1 tablet by mouth every 8 hours as needed for Nausea for up to 30 days. 60 tablet 3 ??? KELNOR , 28, 1-35 mg-mcg Tablet TAKE ONE TABLET BY MOUTH EVERY DAY SKIP PLACEBO WEEK 2 ??? LORazepam (ATIVAN) 1 mg Tablet TAKE ONE TABLET BY MOUTH TWICE A DAY NEEDED 0 ??? ondansetron (ZOFRAN-ODT) 4 mg Tablet, Rapid Dissolve TAKE 1 TABLET BY MOUTH EVERY 6 HOURS NEEDED 0 ??? multivitamin with minerals Tablet Take by mouth. ??? sertraline (ZOLOFT) 50 mg Tablet Take 100 mg by mouth. ??? busPIRone (BUSPAR) 10 mg Tablet Take 10 mg by mouth daily. No current facility-administered medications for this visit. Allergies Allergen Reactions ??? Epinephrine At dentist office convulsion blacked out ??? Unclassified Drug Reports getting very sick to her stomach from strong pain medications such as oxycontin, hydrocodone; believes that she can tolerate dilaudid. Physical Examination: Vitals: 11/17/17 0829 BP: 107/59 Pulse: 57 Weight: 58.1 kg (128 lb) Height: 162.6 cm (5' 4) General:Anxious appearing, NAD HEENT: NC/AT, PERRL, anicteric sclera, MMM Neck: soft, supple, no cervical LAD Chest: CTAB, no wheeze, rale or rhonchi CVS: RRR, normal s1/s2, No MRG ABD: Soft, NT/ND, NABS, No hepatosplenomegaly appreciated. No fluid wave or bulging of flanks Extremities: Warm and well perfused. No espinoza erythema Skin:No rash, no jaundice, no spider angiomas Neuro: AAOx3, Grossly non-focal. Labs: 01/01/16: ROMI Negative C4 complement 14 SSB antibody 1.5 SSA 2.0 SM antibody 3 TTG 1.2 TSH 1.49 (2009) CBC and CMP recently WNL Additional Testing: [...] analysis. A tissue block was submitted to [facility]; a repeat congo red was performed which was also positive.?The liquid chromatography tandem mass spectrometry (LC MS/MS) was performed on the peptide extracted from the Congo red positive dissected areas. LC MS/MS detected a peptide profile that includes proteins deposited with amyloid of all types.?This finding supports a diagnosis of amyloidosis. [facility] could not determine the specific type [...] be the root of her symptoms and will attempt to obtain capsule video to review. It was raised in her joint radiology conference that although her bowel was ran laparoscopically sometimes is better to run it with a gloved handas it is more sensitive. If ongoing evaluation fails to reveal an etiology it may be worth asking our surgeons to do an exploratory surgery. I note that on her most recent CT she has a large stool burden and she had a traumatic delivery reason question of pelvic floor dysfunction resulting large stool ball burden causing her symptoms. For the short-term we will focus on symptom controls, should be noted that her weight has remained stable since her last visit. RECOMMENDATIONS: # Scopolamine path every 72 hours # Zofran PRN # Am cortisol level # Will obtain outside capsule study for review # Continue Miralax 17 grams daily, Squatty potty position recommended as well Follow up Pending above This case was discussed with Dr. Josseline Denney MD [place] [address] P: [phone] F: [phone] CC Lucia Taylor, TRACTOR MECHANIC APPRENTICE [address] [place] [address] * Zulema Manjarrez MD - 11/17/2017 8:30 AM EST I have reviewed Dr. Denney's evaluation and plan. Zulema Manjarrez MD documented in this encounter Plan of Treatment Upcoming Encounters Date Type Department Care Team (Late st Contact Info) Description 10/26/2024 3:45 PM EST Office Visit Dermatology at [place] [address] [facility] [place] [address] Duglas Raymond MD [address] [facility], [place] [address] documented as of this encounter Procedures Procedure Name Priority Date/Time Associated Diagnosis Comments HEMOGRAM Routine 11/17/2017 9:19 AM EST Chronic nausea DIFFERENTIAL, AUTOMATED Routine 11/17/2017 9:19 AM EST Chronic nausea CBC (WITH DIFF) Routine 11/17/2017 9:19 AM EST Chronic nausea CORTISOL Routine 11/17/2017 9:19 AM EST Chronic nausea COMPREHENSIVE METABOLIC PANEL Routine 11/17/2017 9:19 AM EST Chronic nausea documented in this encounter Results * (ABNORMAL) Differential, Automated (11/17/2017 9:19 AM EST) Neutrophil % 40.9 % [facility] Neutrophil Absolute 2.85 1.70 - 6.10 x10(3)/[facility] Lymph % 49.9 % [facility] Lymphocytes Abs 3.5(H) 0.9 - 3.2 x10(3)/[facility] Monocyte % 6.6 % [facility] Monocyte Abs 0.5 0.3 - 0.9 x10(3)/[facility] Eos % 1.9 % [facility] Eosinophils Abs 0.1 0.0 - 0.4 x10(3)/[facility] Basophil % 0.6 % [facility] Baso Absolute 0.0 0.0 - 0.1 x10(3)/[facility] Immature Gran % 0.10 % [facility] Comment: Immature granulocytes(IG's)percentage and absolute count will include metamyelocytes, myelocytes, and promyelocytes. Blood smears from CBCs yielding IG's will be scanned manually for concordance. If this scan disagrees with the automated IG or if promyelocytes are noted, a manual differential will be performed. Immature Gran Absolute 0.01 0.00 - 0.04 x10(3)/[facility] Blood specimen (specimen) 11/17/2017 9:19 AM EST 11/17/2017 9:25 AM EST Narrative Resulting Agency Comment Spec In Lab Igor Denney MD HEMATOLOGY ORDERABLE S [facility] [place] [address] * Hemogram (11/17/2017 9:19 AM EST) White Blood Cell 7.0 4.0 - 9.5 x10(3)/[facility] Red Blood Cell 4.88 4.00 - 5.21 x10(6)/[facility] Hemoglobin 15.0 11.7 - 15.5 gm/dL [facility] Hematocrit 44.6 35.7 - 45.8 % [facility] Mean Cell Volume 91.4 82.6 - 94.4 fL [facility] Mean Cell Hemoglobin 30.7 27.1 - 32.0 pg [facility] Mean Cell Hemoglobin Concentration 33.6 31.7 - 35.0 gm/dL [facility] Platelet 291 145 - 357 x10(3)/[facility] RDW Standard Deviation 39.6 37.0 - 46.0 fL [facility] RDW coefficient of variation 11.8 11.5 - 14.1 % [facility] Mean Platelet Volume 9.5 7.6 - 12.9 fL [facility] NRBC% auto 0.0 % [facility] NRBC Absolute 0.000 0.000 - 0.000 x10(3)/[facility] Blood specimen (specimen) 11/17/2017 9:19 AM EST 11/17/2017 9:25 AM EST Narrative Resulting Agency Comment Spec In Lab Igor Denney MD HEMATOLOGY ORDERABLE S [facility] [place] [address] * (ABNORMAL) Comprehensive metabolic panel (non-fasting) (11/17/2017 9:19 AM EST) Glucose 64(L) 65 - 199 mg/dL [facility] Comment:Diabetes: >=200 mg/d L plus symptoms Blood Urea Nitrogen 14 8 - 18 mg/dL [facility] Creatinine 0.79 0.70 - 1.20 mg/dL [facility] Sodium 140 135 - 145 mmol/L [facility] Potassium 3.7 3.5 - 5.0 mmol/L [facility] Comment: Please note: ??Patients with WBC >100,000 may have falsely elevated Potassium levels. ??For accurate Potassium quantification in these patients send serum separator tube (gold top) for subsequent determinations. ??Contact the Clinical Chemistry Laboratory if there are any questions. Chloride 100 98 - 107 mmol/L [facility] Carbon Dioxide 29 22 - 31 mmol/L [facility] Anion Gap 11 5 - 15 mmol/L [facility] Calcium 9.8 8.5 - 10.5 mg/dL [facility] Protein, Total 8.2(H) 6.1 - 8.0 gm/dL [facility] Albumin 4.9 3.2 - 5.2 gm/dL [facility] Aspartate Aminotransferase 30 0 - 30 unit/L [facility] Alanine Aminotransferase 25 0 - 30 unit/L [facility] Alkaline Phosphatase 41 40 - 104 unit/L [facility] Bilirubin, Total 0.2 0.2 - 1.3 mg/dL [facility] Est Glomerular Filtration Rate >60 >=60 [facility] Comment: The reported eGFR should be multiplied by 1.2 for patients. The MDRD is not an appropriate measure of renal function for patients with body mass extremes or in patients with acute kidney failure. http://3ROAM.Nixon/DHnkdep http://[employer]/DHMCnkf Blood specimen (specimen) 11/17/2017 9:19 AM EST 11/17/2017 9:25 AM EST Narrative Resulting Agency Comment Spec In Lab Zulema Manjarrez MD CHEMISTRY ORDERABLES [facility] [place] [address] * Cortisol (11/17/2017 9:19 AM EST) Cortisol 13.0 mcg/dL [facility] Comment: Reference ranges: ??AM (6-10am): ??4.8-19.5 mcg/dL ??PM (4-8pm) : ??2.5-11.9 mcg/dL Blood specimen (specimen) 11/17/2017 9:19 AM EST 11/17/2017 9:25 AM EST Narrative Resulting Agency Comment Spec In Lab Zulema Manjarrez MD CHEMISTRY ORDERABLES [facility] [place] [address] documented in this encounter Visit Diagnoses Diagnosis Chronic nausea Nausea alone documented in this encounter Care Teams Electric Locomotive Firer/Fireman Relationship Specialty Start Date End Date Lucia Taylor, TRACTOR MECHANIC APPRENTICE PCP - General Family Medicine 10/14/17 05/03/24 documented as of this encounter
--- OUTSIDE RECORDS SUMMARY | 2024-10-25 15:47 | XMS_ITS | Encounter Summary ---
Author Organization [facility] Address [address] [place] [address] Care Team Providers Care Automotive Maintenance Technician Name Role Phone Rebekah Greco GREENSTONE POLISHER OPERATOR Primary Care Provider [phone] Encounter Details Date Type Department Care Team (Late st Contact Info) Description 01/12/2024 Lab Requisition [facility] Pathology & Laboratory Medicine - [facility] [address] [place], [place] [address] Outr Resulting Lab, Provider Social History Tobacco Use Types Packs/Day Years Used Date Smoking Tobacco: Never Smokeless Tobacco: Never Alcohol Use Standard Drinks/Week Comments No 0 (1 standard drink = 0.6 oz pur e alcohol) Interpersonal Safety Answer Date Record ed Physically Hurt Never 05/18/2020 Verbally Threaten Not on file 05/18/2020 Comments No Sex and Gender Information Value Date Recorded Sex Assigned at Not on file Legal Sex Female 18:30 EST Gender Identity Not on file Sexual Orientation Not on file documented as of this encounter Functional Status * Because of a physical, mental, or emotional condition, does this person have difficulty doing errands alone such as visiting a doctor's office or shopping? Answer Date of Assessment Author No 03/28/2017 11:04 EDT documented as of this encounter Mental Status * Because of a physical, mental, or emotional condition, does this person have serious difficulty concentrating, remembering, or making decisions? Answer Entry Date Author No 03/28/2017 11:04 EDT documented in this encounter Plan of Treatment Not on file documented as of this encounter Procedures Procedure Name Priority Date/Time Associated Diagnosis Comments RO60 ANTIBODY, IGG Routine 01/11/2024 16 :20 EDT RO52 ANTIBODY, IGG Routine 01/11/2024 16 :20 EDT SM (ROSS) ANTIBODY, IGG Routine 01/11/2024 16:20 EDT GROUP FITNESS INSTRUCTOR ANTIBODY, IGG Routine 01/11/2024 16: 20 EDT documented in this encounter Results * GROUP FITNESS INSTRUCTOR ANTIBODY, IGG (01/11/2024 16:20 EDT) GROUP FITNESS INSTRUCTOR Antibody, IgG <6.0 <20.0 CU 11:07 EDT [facility] Comment:Results were obtaine d with the [employer] QUANTA Flash GROUP FITNESS INSTRUCTOR chemilumenscent immunoassay. Values obtained with different manufacturers' assay methods may not be used interchangeably. Blood VENOUS BLOOD / Unknown 01/11/2024 16:20 EDT 01/12/2024 16:45 EDT us Provider Outr Resulting Lab IMMUNOLOGY AND SEROL OGY ORDERABLES Final Result Performing Organization Address [facility] Co de Phone Number [facility] [address] [place] [phone] * SM (ROSS) ANTIBODY, IGG (01/11/2024 16:20 EDT) SM (Ross) Antibody, IgG <8.0 <20.0 CU 01/13/2024 11:07 EDT [facility] Comment:Results were obtaine d with the [employer] QUANTA Flash Sm chemiluminescent immunoassay. Values obtained with different manufacturers' assay methods must not be used interchangeably. Blood VENOUS BLOOD / Unknown 01/11/2024 16:20 EDT 01/12/2024 16:45 EDT us Provider Outr Resulting Lab IMMUNOLOGY AND SEROL OGY ORDERABLES Final Result [facility] [address] [place], [place] [address] * RO60 ANTIBODY, IGG (01/11/2024 16:20 EDT) Ro60 Antibody, IgG <7.0 <20.0 CU 2023 11:07 EDT [facility] Comment:Results were obtaine d with the [employer] QUANTA Flash Ro60 chemiluminescent immunoassay. Values obtained with different manufacturers' assay methods must not be used interchangeably. Blood VENOUS BLOOD / Unknown 01/11/2024 16:20 EDT 01/12/2024 16:45 EDT us Provider Outr Resulting Lab IMMUNOLOGY AND SEROL OGY ORDERABLES Final Result Performing Organization Address [facility] de Phone Number [facility] [address] [place], [place] [address] * RO52 ANTIBODY, IGG (01/11/2024 16:20 EDT) Ro52 Anitbody, IgG <2.3 <20.0 CU 2023 11:07 EDT [facility] Comment:Results were obtaine d with the [employer] QUANTA Flash Ro52 chemiluminescent immunoassay. Values obtained with different manufacturers' assay methods must not be used interchangeably. Blood VENOUS BLOOD / Unknown 01/11/2024 16:20 EDT 01/12/2024 16:45 EDT us Provider Outr Resulting Lab IMMUNOLOGY AND SEROL OGY ORDERABLES Final Result Performing Organization Address [facility] Co de Phone Number [facility] [address] [place], [place] [address] documented in this encounter Visit Diagnoses Not on filedocumented in this encounter Care Teams Automotive Maintenance Technician Relationship Specialty Start Date End Date Rebekah Greco NP PCP - General 12/19/17 documented as of this encounter
--- OUTSIDE RECORDS SUMMARY | 2024-10-25 15:47 | XMS_ITS | Encounter Summary ---
Author Organization [facility] Address [address] [place] [address] Care Team Providers Care Renal Social Worker Name Role Phone Rebekah Greco DROSOPHERE OPERATOR Primary Care Provider [phone] Encounter Details Date Type Department Care Team (Late st Contact Info) Description 07/09/2024 Lab Requisition [facility] Pathology & Laboratory Medicine - [facility] [address] [place], [place] [address] Outr Resulting Lab, Provider Social History Tobacco [...] Procedure Name Priority Date/Time Associated Diagnosis Comments PROGESTERONE Routine 07/09/2024 7:23 EDT ESTRADIOL, ADULTS Routine 07/09/2024 7:23 EDT documented in this encounter Results * PROGESTERONE (07/09/2024 7:23 EDT) Progesterone 37.3 See Table ng/mL 07/09/2024 17:31 EDT [facility] Comment: Female Reference Ranges: PHYSIOLOGICAL STATUS ?REFERENCE RANGE ? Pre-Pubertal: ? <= 0.2 ng/mL Menstruating: (Non-) Follicular Phase: ? <= 1.4 ng/mL Luteal Phase: ? 3.3 - 25.6 ng/mL Mid-luteal Phase: ? 4.4 - 28.0 ng/mL Postmenopausal: ? <= 0.7 ng/mL : -------- First Trimester: ?11.2 - 90.0 ng/mL Second Trimester: ? 25.6 - 89.4 ng/mL Third Trimester: ?48.4 - 422.5ng/mL For ectopic , consult a pathologist. Blood VENOUS BLOOD / Unknown 07/09/2024 7:23 EDT 07/09/2024 16:46 EDT us Provider Outr Resulting Lab CHEMISTRY & BLOOD GA S ORDERABLES Final Result Performing Organization Address [facility] Co de Phone Number [facility] [address] [place] [address] * ESTRADIOL, ADULTS (07/09/2024 7:23 EDT) [facility] Signature Estradiol 2,377 See Note pg/mL 07/09/2024 17:30 EDT [facility] Comment: NOTE: FEMALE REFERENCE RANGES: MENSTRUATING ? By cycle day relative to LH peak Follicular ?(-12 to -4 days) ??20-144 pg/mL Midcycle ?(-3 to +2 days) ?? 64-357 pg/mL Luteal ?(+4 to +12 days) ??56-214 pg/mL POSTMENOPAUSAL ?<32 pg/mL *Cross reactivity with Fulvestrant could lead to a falsely elevated estradiol result in patients treated with this drug. Blood VENOUS BLOOD / Unknown 07/09/2024 7:23 EDT 07/09/2024 16:46 EDT us Provider Outr Resulting Lab CHEMISTRY & BLOOD GA S ORDERABLES Final Result Performing Organization Address [facility] Co de Phone Number [facility] [address] [place] [address] documented in this encounter Visit Diagnoses Not on filedocumented in this encounter Care Teams Renal Social Worker Relationship Specialty Start Date End Date Rebekah Greco NP PCP - General 12/19/17 documented as of this encounter
--- OUTSIDE RECORDS SUMMARY | 2024-10-25 15:47 | XMS_ITS | Encounter Summary ---
Author Organization [facility] Address [address] [place] [address] Care Team Providers Care Space Technologist Name Role Phone Rebekah Greco ROOFER HELPER VINYL COATING Primary Care Provider [phone] Encounter Details Date Type Department Care Team (Late st Contact Info) Description 08/08/2024 Lab Requisition [facility] Pathology & Laboratory Medicine - [facility] [address] [place], [place] [address] Outr Resulting Lab, Provider Social History Tobacco [...] Procedure Name Priority Date/Time Associated Diagnosis Comments THYROPEROXIDASE ANTIBODY Routine 08/07/2024 19:15 EDT T3 FREE Routine 08/07/2024 19:15 EDT documented in this encounter Results * (ABNORMAL) T3 FREE (08/07/2024 19:15 EDT) T3, Free 12.5(H) 2.8 - 5.3 pg/mL 08/08/2024 17:47 EDT [facility] Blood VENOUS BLOOD / Unknown 08/07/2024 19:15 EDT 08/08/2024 16:59 EDT us Provider Outr Resulting Lab CHEMISTRY & BLOOD GA S ORDERABLES Final Result Performing Organization Address [facility] de Phone Number [facility] [address] [place] [address] * THYROPEROXIDASE ANTIBODY (08/07/2024 19:15 EDT) Thyroperoxidase Ab <28 <=60 U/mL 2023 18:58 EDT [facility] Blood VENOUS BLOOD / Unknown 08/07/2024 19:15 EDT 08/08/2024 16:59 EDT us Provider Outr Resulting Lab CHEMISTRY & BLOOD GA S ORDERABLES Final Result Performing Organization Address City/[facility] de Phone Number [facility] [address] [place] [address] documented in this encounter Visit Diagnoses Not on filedocumented in this encounter Care Teams Space Technologist Relationship Specialty Start Date End Date Rebekah Greco NP PCP - General 12/19/17 documented as of this encounter
--- OUTSIDE RECORDS SUMMARY | 2024-10-25 15:47 | XMS_ITS | Encounter Summary ---
Author Organization [facility] Address [address] [place] [address] Care Team Providers Care Wall Taper Helper Name Role Phone Rebekah Greco CHARGE AUDITOR Primary Care Provider [phone] Encounter Details Date Type Department Care Team (Late st Contact Info) Description 07/23/2024 Lab Requisition [facility] Pathology & Laboratory Medicine - [facility] [address] [place], [place] [address] Outr Resulting Lab, Provider Social History Tobacco [...] Priority Date/Time Associated Diagnosis Comments PROGESTERONE Routine 07/23/2024 11:31 EDT ESTRADIOL, ADULTS Routine 07/23/2024 11: 31 EDT LH Routine 07/23/2024 11:31 EDT documented in this encounter Results * LH (07/23/2024 11:31 EDT) Luteinizing Hormone <0.3 See Note mIU/mL 07/23/2024 18:50 EDT [facility] Comment: NOTE: Female Reference Ranges: Pre-Pubertal: ?<6.0 mIU/mL Menstruating: Follicular Phase(-12 to -4 days: ??1.9 - 12.5 mIU/mL Midcycle(-3 to +2 days): ?8.7 - 76.3 mIU/mL Luteal Phase(+4 to +12 days): ? 0.5 - 16.9 mIU/mL Post Menopausal: 15.9 - 54.0 mIU/mL Blood VENOUS BLOOD / Unknown 07/23/2024 11:31 EDT 07/23/2024 17:07 EDT us Provider Outr Resulting Lab CHEMISTRY & BLOOD GA S ORDERABLES Final Result [facility] [address] [place] [address] * PROGESTERONE (07/23/2024 11:31 EDT) Progesterone 45.3 See Table ng/mL 07/23/2024 18:39 EDT [facility] Comment: Female Reference Ranges: [...] a pathologist. Blood VENOUS BLOOD / Unknown 07/23/2024 11:31 EDT 07/23/2024 17:07 EDT us Provider Outr Resulting Lab CHEMISTRY & BLOOD GA S ORDERABLES Final Result [facility] [address] [place] [address] * ESTRADIOL, ADULTS (07/23/2024 11:31 EDT) Estradiol 4,125 See Note pg/mL 07/23/2024 18:41 EDT [facility] Comment: NOTE: FEMALE REFERENCE [...] this drug. Blood VENOUS BLOOD / Unknown 07/23/2024 11:31 EDT 07/23/2024 17:07 EDT us Provider Outr Resulting Lab CHEMISTRY & BLOOD GA S ORDERABLES Final Result Performing Organization Address City/State/[facility] Co de Phone Number [facility] [address] [place] [address] documented in this encounter Visit Diagnoses Not on filedocumented in this encounter Care Teams Wall Taper Helper Relationship Specialty Start Date End Date Rebekah Gerco NP PCP - General 12/19/17 documented as of this encounter
--- OUTSIDE RECORDS SUMMARY | 2024-10-25 15:47 | XMS_ITS | Referral Summary ---
Author Organization [facility] Address [address] [place] [address] Care Team Providers Care Agriculture Mechanic Name Role Phone Rebekah Greco FIELD SERVICE ANALYST Primary Care Provider [phone] Encounters Date Type Department Care Team Description 08/17/2024 Lab Requisition [facility] Pathology & Laboratory [address] [address] Outr Resulting Lab, Provider 08/14/2024 Lab Requisition [facility] Pathology & Laboratory [address] [address] Outr Resulting Lab, Provider 08/08/2024 Lab Requisition [facility] Pathology Laboratory [address] [address] Outr Resulting Lab, Provider 08/03/2024 Lab Requisition [facility] Pathology & Laboratory [address] [address] Outr Resulting Lab, Provider 07/27/2024 Lab Requisition [facility] Pathology & Laboratory [address] [address] Outr Resulting Lab, Provider from Last 3 Months Allergies No known active allergies Medications Multivitamins with Minerals Tab Take 1 Tab by mouth daily. Active sertraline (ZOLOFT) 50 mg tablet Take 50 mg by mouth. Active traZODone (DESYREL) 50 mg tablet Take 50 mg by mouth daily. Active LORazepam (ATIVAN) 1 mg tablet Take 1 mg by mouth 3 times daily. Active omeprazole (PRILOSEC) 20 mg capsule Take 20 mg by mouth daily. Active UNABLE TO FIND Kilnor--Birthc ontrol Active triamcinolone (KENALOG) 0.1 % creamIndication s:Rash Apply topically to affected area 2 times daily. Do not apply to face, armpit or groin. 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 Social History Tobacco Use Types Packs/Day Years [...] Sign Reading Time Taken Comments Blood Pressure 98/66 03/28/2017 1102 EDT Pulse 72 03/28/2017 1102 EDT Temperature 36.1 ??C (97 ??F) 01/26/2012 1930 EDT Respiratory Rate 16 01/01/2016 1025 EDT Oxygen Saturation 99% 01/26/2012 1945 EDT Inhaled Oxygen Concentration - - Weight 55.1 kg (121 lb 6.4 oz) 03/28/2017 1102 E DT Height 162.6 cm (5' 4) 03/28/2017 1102 EDT Body Mass Index 20.84 03/28/2017 1102 EDT Functional Status * Because of a physical, mental, or emotional condition, does this person have difficulty doing errands alone such as visiting a doctor's office or shopping? Answer Date of Assessment Author No 03/28/2017 11:04 EDT Mental Status * Because of a physical, mental, or emotional condition, does this person have serious difficulty concentrating, remembering, or making decisions? Answer Entry Date Author No 03/28/2017 11:04 EDT Plan of Treatment Not on file Procedures Procedure Name Priority Date/Time Associated Diagnosis Comments T3, TOTAL Routine 08/17/2024 7:35 EDT ESTRADIOL, ADULTS Routine 08/14/2024 12: 25 EDT T3 FREE Routine 08/07/2024 19:15 EDT THYROPEROXIDASE ANTIBODY Routine 08/07/2024 19:15 EDT PROGESTERONE Routine 08/03/2024 11:45 EDT ESTRADIOL, ADULTS Routine 08/03/2024 11: 45 EDT PROGESTERONE Routine 07/27/2024 8:58 EDT ESTRADIOL, ADULTS Routine 07/27/2024 8:5 8 EDT HEPATITIS C AB W REFLEX TO HCV RNA BY PCR Routine 08/18/2021 7:20 EDT from Last 3 Months or Most Recently Relevant to Health Maintenance Results * (ABNORMAL) T3, TOTAL (08/17/2024 7:35 EDT) T3, Total 466(H) 97 - 169 ng/dL 08/17/2024 18:37 EDT [facility] Blood VENOUS BLOOD / Unknown 08/17/2024 7:35 EDT 08/17/2024 17:47 EDT us Provider Outr Resulting Lab CHEMISTRY & BLOOD GA S ORDERABLES Final Result [facility] [address] [place] [address] * ESTRADIOL, ADULTS (08/14/2024 12:25 EDT) Only the most recent of3 resultswithin the time period is included. Estradiol 49 See Note pg/mL 08/14/2024 22:37 EDT [facility] Comment: NOTE: FEMALE REFERENCE [...] this drug. Blood VENOUS BLOOD / Unknown 08/14/2024 12:25 EDT 08/14/2024 21:38 EDT us Provider Outr Resulting Lab CHEMISTRY & BLOOD GA S ORDERABLES Final Result Performing Organization Address [facility] de Phone Number [facility] [address] [place] [address] * THYROPEROXIDASE ANTIBODY (08/07/2024 19:15 EDT) Thyroperoxidase Ab <28 <=60 U/mL 2023 18:58 EDT [facility] Blood VENOUS BLOOD / Unknown 08/07/2024 19:15 EDT 08/08/2024 16:59 EDT Provider Outr Resulting Lab CHEMISTRY & BLOOD GA S ORDERABLES Final Result Performing Organization Address [facility] Co de Phone Number [facility] [address] [place], [place] [id number] * (ABNORMAL) T3 FREE (08/07/2024 19:15 EDT) T3, Free 12.5(H) 2.8 - 5.3 pg/mL 08/08/2024 17:47 EDT [facility] Blood VENOUS BLOOD / Unknown 08/07/2024 19:15 EDT 08/08/2024 16:59 EDT us Provider Outr Resulting Lab CHEMISTRY & BLOOD GA S ORDERABLES Final Result [facility] [address] [place] [address] * PROGESTERONE (08/03/2024 11:45 EDT) Only the most recent of2 resultswithin the time period is included. Progesterone 45.5 See Table ng/mL 08/03/2024 17:55 EDT [facility] Comment: Female Reference Ranges: [...] a pathologist. Blood VENOUS BLOOD / Unknown 08/03/2024 11:45 EDT 08/03/2024 16:56 EDT us Provider Outr Resulting Lab CHEMISTRY & BLOOD GA S ORDERABLES Final Result [facility] [address] [place] [address] * HEPATITIS C AB W REFLEX TO HCV RNA BY PCR (08/18/2021 7:20 EDT) Hep C Antibody Negative Negative 08/19/2021 12:18 EDT [facility] Blood VENOUS BLOOD / Unknown 08/18/2021 7:20 EDT 08/18/2021 16:26 EDT us Provider Outr Resulting Lab CHEMISTRY & BLOOD GA S ORDERABLES Final Result Performing Organization Address City/[facility] Co de Phone Number [facility] [address] [place] [address] from Last 3 Months or Most Recently Relevant to Health Maintenance Insurance [facility] Care Teams Agriculture Mechanic Relationship Specialty Start Date End Date Rebekah Greco NP [facility] - General 12/19/17
--- OUTSIDE RECORDS SUMMARY | 2024-10-25 15:47 | XMS_ITS | Encounter Summary ---
Author Organization [facility] Address [facility] [place] [address] Care Team Providers Care Paper Cone Maker Name Role Phone Tayler Gutiérrez MD Primary Care Provider + Reason for Referral * Diagnostic Test (Routine) - Closed Specialty Diagnoses / Procedures Referred By Contac t Referred To Contact Radiology Diagnoses Chronic abdominal pain Procedures NM Gastric Emptying Scan Igor Denney MD [facility] [place] [address] [facility] [place] [address] Referral ID Status Reason Start Date Expiration Date V isits Requested Visits Authorized [id number] Closed Specialty Service Requested 10/03/2017 10/03/2018 5 5 * Diagnostic Test (Routine) - Closed Specialty Diagnoses / Procedures Referred By Contac t Referred To Contact Radiology Diagnoses Chronic abdominal pain Procedures MRI Brain wwo Contrast (Generic) Igor Denney MD [facility] [place] [address] [place] [address] Referral ID Status Reason Start Date Expiration Date V isits Requested Visits Authorized [id number] Closed Specialty Service Requested 10/06/2017 12/04/2017 1 1 Reason for Visit * Reason Comments GI Problem * Consultation (Urgent) - Specialty Diagnoses / Procedures Referred By Isra t Referred To Contact Gastroenterology Diagnoses Pt w h/o gastroduodenal mass, 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 Pt has not had any postsurgical fup; needs ongoing til fup. Procedures Consult, evaluate, treat Lucia Taylor, WIND TURBINE ENGINEER [address] [place] [address] [facility] [address] [place] [address] Referral ID Status Reason Start Date Expiration Date V isits Requested Visits Authorized [id number] Evaluate and Treat 09/14/2017 09/14/2018 1 1 Encounter Details Date Type Department Care Team (Late st Contact Info) Description 10/03/2017 1:00 PM EST Office [place] [address] Igor Denney MD [facility] [place] [address] Chronic abdominal pain Social History Tobacco Use Types Packs/Day Years Used Date Smoking Tobacco: Never Smokeless Tobacco: Never Sex and Gender Information Value Date Recorded Sex Assigned at Not on file Gender Identity Not on file Sexual Orientation Not on file documented as of this encounter Last Filed Vital Signs Vital Sign Reading Time Taken Comments Blood Pressure 94/58 10/03/2017 12:45 PM EST Pulse 59 10/03/2017 12:45 PM EST Temperature - - Respiratory Rate - - Oxygen Saturation - - Inhaled Oxygen Concentration - - Weight 58.1 kg (128 lb) 10/03/2017 12:45 PM EST Height 162.6 cm (5' 4) 10/03/2017 12:45 PM EST Body Mass Index 21.97 10/03/2017 12:45 PM EST documented in this encounter Progress Notes * Igor Denney R - 10/03/2017 1:[address] PM [address] [facility] Division of Gastroenterology and Hepatology Outpatient Consultation Reason for Visit: Nausea/vomiting Referred by Lucia Taylor History of Present Illness: Jerome Robledo is a 32 y.o. female with PMHx significant for anxiety whois referred to GI for evaluation of now chronic nausea, vomiting, abdominal pain and altered bowel habits. Ms Robledo was in her USOH until October 2016 when she developed nausea, vomiting, and left sided abdominal pain with a 20-pound unintentional weight loss. She underwent an extensive evaluation at [facility] that included an abdominal ultrasound and HIDA scans that were both without significant findings. Alex had an endoscopy on 02/15/17 that was also without significant findings. She ultimately had a CT scan of the abdomen and pelvis on 02/21/17 that showed a large jejunal intussusception. She was taken to the operating room on 02/28/[address] Zacarias Acevedo for an exploratory laparotomy. An intussusception was not found intraoperatively despite running her bowel, but she was noted to have a lemon- sized mass involving the gastrojejunal junction of unclear etiology. A biopsy of the mass was performed as well as peripancreatic lymph node biopsy. Pathology revealed that the gastroduodenal masswas benign; however, amyloid was noted in the vascular material. The lymph node was reactive. The specimen was sent to the [facility] for further evaluation for amyloid. Mass spectrometry was performed that supported the diagnosis of amyloidosis; however, subtyping could not be performed due to aninadequate specimen. The patient sought a second opinion at [facility] and was seen by Dr. Tijerina and Dr. Arredondo. The patientunderwent endoscopy on 04/05/17. There was gastroduodenal nodular changes noted that were biopsied.EUS was also performed and demonstrated hypoechoic changes in the gastrojejunal wall lining to the smooth muscle lesion of the antrum. The pathology from this procedure showed normal duodenal mucosa w ith no diagnostic abnormality. 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 The patient had an MRI on 04/18/17 that again showed jejunal intussusception in the left upper quadrant that was unchanged from prior on 03/30/17. An area of nonspecific focal wall thickening within the jejunum was also noted. No lymphadenopathy was noted. At this point given the lack of alternative findings to explain her chronic symptoms she was admitted to [facility] on 07/08/2017 and taken to the OR [...] they ran her bowel during this surgery. Since her surgery she has moved to the local area and thus plans to follow with [facility]. Following her surgery she has had essentially no change in her symptoms with continued nausea, vomiting, epigastric abdominal pain, and altered bowel movements. She does not feel the symptoms are different in any significant way compared to prior to her surgery. Her nausea and vomiting is primarily induced by eating, the type of food which does not seem to matter. As a result she has generally avoided food and eats only in small amounts such as pur??ed fruits, eggs, and gluten-free crackers. When she is not eating she feels okay but not great. When she eats she feels the food instantly in her stomach becomes nauseous after just a few bites. At this point she vomits a few times a week.She had tried Zofran for some time but as she felt it was not working she stopped. She finds that she is either constipated or having diarrhea that has no clear pattern to her eating. When she does go the bathroom she feels as if she incompletely evacuates. She does not feel she strains to go to the bathroom. She has widespread abdominal pain with eating and does note some relief with bowel movements. With the beginning of the symptoms nearly a year ago she lost about 30 pounds but has recentlystabilized at 120 pounds. She has never had a colonoscopy. She denies dysphagia, odynophagia, fevers, chills, night sweats. Of note she has been on gluten-free diet for 3 years after developing a rash of her neck and torso that was unresponsive to steroids. The gluten-free diet was tried empirically and with this diet herrash resolved. Review of Systems: Constitutional: weight loss HEENT: [...] Outpatient Prescriptions Medication Sig Dispense Refill ??? KELNOR , 28, 1-35 mg-mcg Tablet [...] she can tolerate dilaudid. Physical Examination: Vitals: 10/03/17 1245 BP: 94/58 Pulse: 59 Weight: 58.1 kg (128 lb) Height: 162.6 [...] 09/12/2017: - Large fecal burden, no obstruction Path: 07/08/17: Gastroduodenal resection specimen with mass [...] A tissue block was submitted to [facility] [employer] a repeat congo red was performed which was also positive.?The liquid chromatography tandem mass spectrometry (LC MS/MS) was performed on the peptide extracted from the Congo red positive dissected areas. LC MS/MS detected a peptide profile that includes proteins deposited with amyloid of all types.?This finding supports a diagnosis of amyloidosis. [facility] could not determine the specific type [...] endoscopic ultrasound, exploratory laparoscopy, labo ratory evaluation, and multiple cross-sectional images. Despite this the cause of her debilitating symptoms remain unclear. It is worth noting that we have 3 images over the course of 3 months that showed persistent jejunal intussusception however the bowl has been run at least once and perhaps a second time without evidence of an intussusception. I am still concerned that this could be the root of her symptoms and we will review her radiology and her Tuesday conference. At this point given the chronic nature of her symptoms we should rule out a central process such as a brain mass and we have ordered an MRI to accomplish this. I would also like to look at her gastric emptying as this hasnot been previously examined and could represent a cause for many of her symptoms. I note that on her most recent CT she has a large stool burden and she had a traumatic delivery reason question of pelvic floor dysfunction resulting large stool ball burden causing her symptoms. With her history of rash responsive to gluten free diet I would like to test her for celiac disease, as she has been on a gluten-free diet the most efficient way of doing this will be HLA genotyping. A few additional Rexas outlined below RECOMMENDATIONS: # Will request past imaging studies and pathology be sent # Gastric emptying scan # MRI head # HLA DQ-2 and DQ8 typing # TTG/IGA, CMP, calcium, TSH # AM cortision # Colonoscopy # Pending above consider anal rectal manometry # Start taking Miralax 17 grams daily, Squatty potty position recommended as well Follow up Pending above This case was discussed with Dr. Marta Denney MD [place] [address] P: [phone] F: [phone] CC Tayler Gutiérrez MD [address] [place] [address] * Lisa Sage MD - 10/03/2017 1:00 PM EST Attending Addendum: I interviewed and examined the patient with Dr. Denney in clinic. I confirm the history and young physical findings outlined in this note. The assessment and plan were formulated in discussion with me atthe time of this encounter, and I agree with them as documented. Lisa Sage MD * Lisa Sage MD - 10/03/2017 1:00 PM EST I have reviewed the plan of care with Dr. Denney. I agree with his documentation. Lisa Sage MD Section of Gastroenterology & Hepatology [address] [place] [address] documented in this encounter Plan of Treatment Upcoming Encounters Date Type Department Care Team (Late st Contact Info) Description 10/26/2024 3:45 PM EST Office Visit Dermatology at [address] [place] [id number] Duglas Raymond MD [address], [place] [address] Scheduled Orders Name Type Priority Associated Diagnoses Orde r Schedule COLONOSCOPY Procedures Routine Chronic abdominal pain Ordered: 10/03/2017 documented as of this encounter Procedures Procedure Name Priority Date/Time Associated Diagnosis Comments CMP W/FASTING GLUCOSE Routine 10/03/2017 3:10 PM EST Chronic abdominal pain CELIAC HLA TYPING Routine 10/03/2017 3:1 0 PM EST Chronic abdominal pain HEMOGRAM Routine 10/03/2017 3:10 PM EST Chronic abdominal pain DIFFERENTIAL, AUTOMATED Routine 10/03/2017 3:10 PM EST Chronic abdominal pain TISSUE TRANSGLUTAMINASE, IGA Routine 10/03/2017 3:10 PM EST Chronic abdominal pain CBC (WITH DIFF) Routine 10/03/2017 3:10 PM EST Chronic abdominal pain BETA HCG, QUANTITATIVE Routine 10/03/2017 3:10 PM EST Chronic abdominal pain IGA Routine 10/03/2017 3:10 PM EST Chronic abdominal pain CALCIUM Routine 10/03/2017 3:10 PM EST Chronic abdominal pain documented in this encounter Results * MRI [...] is normal in signal. Procedure Note Willard aMriano MD - 10/14/2017 EXAMINATION: MRI BRAIN WWO [...] Lisa Sage MD IMG MRI ORDERABLES * NM Gastric Emptying Scan (10/12/2017 1:18 [...] at 10/12/2017 2:02 PM Lisa Sage MD [facility] NM ORDERABLES * (ABNORMAL) Differential, Automated (10/03/2017 3:10 PM EST) Neutrophil % 54.4 % [facility] Neutrophil Absolute 5.16 1.70 - 6.10 x10(3)/mc L [facility] Lymph % 37.4 % [facility] Lymphocytes Abs 3.6(H) 0.9 - 3.2 x10(3)/mc L [facility] Monocyte % 6.1 % [facility] Monocyte Abs 0.6 0.3 - 0.9 x10(3)/mc L [facility] Eos % 1.4 % [facility] Eosinophils Abs 0.1 0.0 - 0.4 x10(3)/mc L [facility] Basophil % 0.5 % [facility] Baso Absolute 0.0 0.0 - 0.1 x10(3)/mc L [facility] Immature Gran % 0.20 % [facility] Comment: Immature granulocytes(IG's)percentage and absolute count will include metamyelocytes, myelocytes, and promyelocytes. Blood smears from CBCs yielding IG's will be scanned manually for concordance. If this scan disagrees with the automated IG or if promyelocytes are noted, a manual differential will be performed. Immature Gran Absolute 0.02 0.00 - 0.04 x10(3)/mc L [facility] Blood specimen (specimen) 10/03/2017 3:10 PM EST 10/03/2017 3:15 PM EST Narrative Resulting Agency Comment Spec In Lab Lisa Sage MD HEMATOLOGY ORDERABLE S [facility] [place] [address] * Hemogram (10/03/2017 3:10 PM EST) White Blood Cell 9.5 4.0 - 9.5 x10(3)/[facility] Red Blood Cell 4.26 4.00 - 5.21 x10(6)/[facility] Hemoglobin 13.0 11.7 - 15.5 gm/dL [facility] Hematocrit 39.7 35.7 - 45.8 % [facility] Mean Cell Volume 93.2 82.6 - 94.4 fL [facility] Mean Cell Hemoglobin 30.5 27.1 - 32.0 pg [facility] Mean Cell Hemoglobin Concentration 32.7 31.7 - 35.0 gm/dL [facility] Platelet 245 145 - 357 x10(3)/[facility] RDW Standard Deviation 42.4 37.0 - 46.0 fL [facility] RDW coefficient of variation 12.5 11.5 - 14.1 % [facility] Mean Platelet Volume 9.2 7.6 - 12.9 fL [facility] NRBC% auto 0.0 % [facility] NRBC Absolute 0.000 0.000 - 0.000 x10(3)/mcL [facility] Blood specimen (specimen) 10/03/2017 3:10 PM EST 10/03/2017 3:15 PM EST Narrative Resulting Agency Comment Spec In Lab Lisa Sage MD HEMATOLOGY ORDERABLE S [facility] [place] [address] * Celiac HLA Typing (10/03/2017 3:10 PM EST) Celiac HLA Typing Test ? Result ?Flag ??Unit ??RefValue Celiac Associated HLA-DQ Typing ??DQ alpha 1 ? 01,05:01 ?Not Applicable ??DQ beta 1 ?02:01,05:01 ? Not Applicable ?DQ Serologic Equivalent: ?2,5 ??Celiac gene pairs present? Yes ??Interpretation ? SEE COMMENTS ?These genes are permissive for celiac disease. ??The absence ?of HLA celiac permissive genes would make the presence of ?celiac disease unlikely. ??However, these genes can also be ?present in the normal population. ? -----ADDITIONAL INFORMATION----- ?Method: Molecular typing of HLA antigens performed using ?reverse SSOP and/or SSP methods, reported as serological ?equivalents and low to medium resolution molecular values. ?Performing Laboratory CLIA# [id number] ?Test Performed by: ?[facility] ?[address] LABORATORY Blood specimen (specimen) 10/03/2017 3:10 PM EST 10/03/2017 3:27 PM EST Narrative Resulting Agency Comment Spec In Lab Lisa Sage MD LAB SEND OUT ORDERAB LES Performing Organization Address [facility] Co de Phone Number [facility] [place] [address] * IgA (10/03/2017 3:10 PM EST) IgA 89 70 - 400 mg/dL [facility] Blood specimen (specimen) 10/03/2017 3:10 PM EST 10/03/2017 3:16 PM EST Narrative Resulting Agency Comment Spec In Lab Lisa Sage MD CHEMISTRY ORDERABLES Performing Organization Address [facility] de Phone Number [facility] [place] [address] * Tissue transglutaminase, IgA (10/03/2017 3:10 PM EST) TTG IgA Ab 0.2 0.1 - 10.0 u/ml [facility] Comment: Negative = <7 U/mL Equivocal = 7-10 U/mL Positive = >10 U/mL Blood specimen (specimen) 10/03/2017 3:10 PM EST 10/04/2017 7:34 AM EST Narrative Resulting Agency Comment Spec In Lab Lisa Sage MD IMMUNOLOGY ORDERABLE S Performing Organization Address City/[facility]/ZIP Co de Phone Number [facility] [place] [address] * Calcium (10/03/2017 3:10 PM EST) Calcium 9.4 8.5 - 10.5 mg/dL [facility] Blood specimen (specimen) 10/03/2017 3:10 PM EST 10/03/2017 3:15 PM EST Narrative Resulting Agency Comment Spec In Lab Lisa Sage MD CHEMISTRY ORDERABLES Performing Organization Address [facility] Co de Phone Number [facility] [place] [address] * (ABNORMAL) CMP w/fasting Glucose (10/03/2017 3:10 PM EST) Glucose Fasting 91 65 - 99 mg/dL [facility] Comment: ?Fasting* Glucose Interpretive Criteria Normal ?65-99 mg/dL Impaired Fasting glucose ?100-125 mg/dL Consistent with Diabetes Mellitus ? >or= 126 mg/dL *Fasting is defined as no caloric intake for at least 8 hours In the absence of unequivocal hyperglycemia a plasma glucose value of >or= 126 mg/dL should be repeated on a subsequent day. Diagnosis and Classification of Diabetes Mellitus, Position Statement from the [place] [employer]. ??Diabetes Care, Volume 33, Supplement 1, Oct 2009 Blood Urea Nitrogen 8 8 - 18 mg/dL [facility] Creatinine 0.75 0.70 - 1.20 mg/dL [facility] Sodium 141 135 - 145 mmol/L [facility] Potassium 3.8 3.5 - 5.0 mmol/L [facility] Comment: Please note: ??Patients with WBC >100,000 may have falsely elevated Potassium levels. ??For accurate Potassium quantification in these patients send serum separator tube (gold top) for subsequent determinations. ??Contact the Clinical Chemistry Laboratory if there are any questions. Chloride 102 98 - 107 mmol/L [facility] Carbon Dioxide 21(L) 22 - 31 mmol/L [facility] Anion Gap 18(H) 5 - 15 mmol/L [facility] Calcium 9.4 8.5 - 10.5 mg/dL [facility] Protein, Total 7.3 6.1 - 8.0 gm/dL [facility] Albumin 4.2 3.2 - 5.2 gm/dL [facility] Aspartate Aminotransferase 21 0 - 30 unit/L [facility] Alanine Aminotransferase 13 0 - 30 unit/L [facility] Alkaline Phosphatase 30(L) 40 - 104 unit/L [facility] Bilirubin, Total 0.4 0.2 - 1.3 mg/dL [facility] Est Glomerular Filtration Rate >60 >=60 [facility] Comment: The reported eGFR should be multiplied by 1.2 for patients. The MDRD is not an appropriate measure of renal function for patients with body mass extremes or in patients with acute kidney failure. http://[employer].TimePad/DHnkdep http://DaWanda/DHMCnkf Blood specimen (specimen) 10/03/2017 3:10 PM EST 10/03/2017 3:15 PM EST Narrative Resulting Agency Comment Spec In Lab Lisa Sage MD CHEMISTRY ORDERABLES [facility] [place] [address] * Beta HCG, quantitative (10/03/2017 3:10 PM EST) Beta Human Chorionic Gonadotropin, Quantitative <1 mlU/ML [facility] Comment: REFERENCE RANGES NON- FEMALE: ??Less than 5 mIU/mL POSTMENOPAUSAL FEMALE: ??Less than 8 mIU/mL ? -- FEMALES -- Weeks of ? HCG range ??(mIU/mL) ? 3 weeks ? 5.8 - 71.2 ? 4 weeks ? 9.5 - 750 ? 5 weeks ? 217 - 7,138 ? 6 weeks ? 158 - 31,795 ? 7 weeks ? 3,697 - 163,563 ? 8 weeks ? 32,065 - 149,571 ? 9 weeks ? 63,803 - 151,410 ?10 weeks ? 46,509 - 186,977 ?12 weeks ? 27,832 - 210,612 ?14 weeks ? 13,950 - 62,530 ?15 weeks ? 12,039 - 70,971 ?16 weeks ? 9,040 - 56,451 ?17 weeks ? 8,175 - 55,868 ?18 weeks ? 8,099 - 41,176 Blood specimen (specimen) 10/03/2017 3:10 PM EST 10/03/2017 3:15 PM EST Narrative Resulting Agency Comment Spec In Lab Lisa Sage MD CHEMISTRY ORDERABLES [facility] [place] [address] documented in this encounter Visit Diagnoses Diagnosis Chronic abdominal pain Abdominal pain, unspecified site Chronic abdominal pain Abdominal pain, unspecified site Chronic abdominal pain Abdominal pain, unspecified site documented in this encounter Care Teams Paper Cone Maker Relationship Specialty Start Date End Date Tayler Gutiérrez MD [address] [place] [id number] PCP - General 08/30/14 10/13/17 documented as of this encounter
--- OUTSIDE RECORDS SUMMARY | 2024-10-25 15:47 | XMS_ITS | Encounter Summary ---
Author Organization [facility] Address [address] [place] [address] Care Team Providers Care Garage Door Hanger Name Role Phone Rebekah Greco FRONT DESK LEAD Primary Care Provider [phone] Encounter Details Date Type Department Care Team (Late st Contact Info) Description 07/20/2024 Lab Requisition [facility] Pathology & Laboratory Medicine - [facility] [address] [place], [place] [address] Outr Resulting Lab, Provider Social History Tobacco [...] Priority Date/Time Associated Diagnosis Comments PROGESTERONE Routine 07/20/2024 7:23 EDT ESTRADIOL, ADULTS Routine 07/20/2024 7:23 EDT documented in this encounter Results * PROGESTERONE (07/20/2024 7:23 EDT) Progesterone 32.4 See Table ng/mL 07/20/2024 21:58 EDT [facility] Comment: Female Reference Ranges: [...] a pathologist. Blood VENOUS BLOOD / Unknown 07/20/2024 7:23 EDT 07/20/2024 20:41 EDT us Provider Outr Resulting Lab CHEMISTRY & BLOOD GA S ORDERABLES Final Result Performing Organization Address [facility] Co de Phone Number [facility] [address] [place] [address] * ESTRADIOL, ADULTS (07/20/2024 7:23 EDT) [facility] Estradiol 2,166 See Note pg/mL 07/20/2024 21:57 EDT [facility] Comment: NOTE: FEMALE REFERENCE [...] this drug. Blood VENOUS BLOOD / Unknown 07/20/2024 7:23 EDT 07/20/2024 20:41 EDT us Provider Outr Resulting Lab CHEMISTRY & BLOOD GA S ORDERABLES Final Result Performing Organization Address [facility] Co de Phone Number [facility] [address] [place] [address] documented in this encounter Visit Diagnoses Not on filedocumented in this encounter Care Teams Garage Door Hanger Relationship Specialty Start Date End Date Rebekah Greco NP PCP - General 12/19/17 documented as of this encounter
--- OUTSIDE RECORDS SUMMARY | 2024-10-25 15:47 | XMS_ITS | Encounter Summary ---
Author Organization [facility] Address [address] [place] [address] Care Team Providers Care Office Support Clerk Name Role Phone Rebekah Greco ELECTRIC SHAVER MECHANIC Primary Care Provider [phone] Encounter Details Date Type Department Care Team (Late st Contact Info) Description 06/26/2024 Lab Requisition [facility] Pathology & Laboratory Medicine - [facility] [address], [place] [address] Outr Resulting Lab, Provider Social History Tobacco [...] Priority Date/Time Associated Diagnosis Comments PROGESTERONE Routine 06/26/2024 7:45 EDT ESTRADIOL, ADULTS Routine 06/26/2024 7:45 EDT LH Routine 06/26/2024 7:45 EDT documented in this encounter Results * LH (06/26/2024 7:45 EDT) Luteinizing Hormone 28.5 See Note mIU/mL 06/26/2024 18:54 EDT [facility] Comment: NOTE: Female Reference Ranges: Pre-Pubertal: ?<6.0 mIU/mL Menstruating: Follicular Phase(-12 to -4 days: ??1.9 - 12.5 mIU/mL Midcycle(-3 to +2 days): ?8.7 - 76.3 mIU/mL Luteal Phase(+4 to +12 days): ? 0.5 - 16.9 mIU/mL Post Menopausal: 15.9 - 54.0 mIU/mL Blood VENOUS BLOOD / Unknown 06/26/2024 7:45 EDT 06/26/2024 17:37 EDT us Provider Outr Resulting Lab CHEMISTRY & BLOOD GA S ORDERABLES Final Result [facility] [address] [place] [address] * PROGESTERONE (06/26/2024 7:45 EDT) Progesterone <0.2 See Table ng/mL 06/26/2024 18:27 EDT [facility] Comment: Female Reference Ranges: [...] a pathologist. Blood VENOUS BLOOD / Unknown 06/26/2024 7:45 EDT 06/26/2024 17:37 EDT us Provider Outr Resulting Lab CHEMISTRY & BLOOD GA S ORDERABLES Final Result [facility] [address] [place] [address] * ESTRADIOL, ADULTS (06/26/2024 7:45 EDT) Estradiol 1,083 See Note pg/mL 06/26/2024 18:23 EDT [facility] Comment: NOTE: FEMALE REFERENCE [...] this drug. Blood VENOUS BLOOD / Unknown 06/26/2024 7:45 EDT 06/26/2024 17:37 EDT us Provider Outr Resulting Lab CHEMISTRY & BLOOD GA S ORDERABLES Final Result [facility] [address] [place] [id number] documented in this encounter Visit Diagnoses Not on filedocumented in this encounter Care Teams Office Support Clerk Relationship Specialty Start Date End Date Rebekah Greco NP PCP - General 12/19/17 documented as of this encounter
--- OUTSIDE RECORDS SUMMARY | 2024-10-25 15:47 | XMS_ITS | Encounter Summary ---
Author Organization [facility] Address [address] [place] [address] Care Team Providers Care General Warehouse Associate Name Role Phone Rebekah Greco MRI SUPERVISOR Primary Care Provider [phone] Encounter Details Date Type Department Care Team (Late st Contact Info) Description 06/20/2024 Lab Requisition [facility] Pathology & Laboratory Medicine - [facility] [address], [place] [address] Outr Resulting Lab, Provider Social History Tobacco [...] Priority Date/Time Associated Diagnosis Comments PROGESTERONE Routine 06/20/2024 8:40 EDT LH Routine 06/20/2024 8:40 EDT FSH Routine 06/20/2024 8:40 EDT documented in this encounter Results * LH (06/20/2024 8:40 EDT) Luteinizing Hormone 7.6 See Note mIU/mL 06/20/2024 18:37 EDT [facility] Comment: NOTE: Female Reference Ranges: Pre-Pubertal: ?<6.0 mIU/mL Menstruating: Follicular Phase(-12 to -4 days: ??1.9 - 12.5 mIU/mL Midcycle(-3 to +2 days): ?8.7 - 76.3 mIU/mL Luteal Phase(+4 to +12 days): ? 0.5 - 16.9 mIU/mL Post Menopausal: 15.9 - 54.0 mIU/mL Blood VENOUS BLOOD / Unknown 06/20/2024 8:40 EDT 06/20/2024 17:16 EDT us Provider Outr Resulting Lab CHEMISTRY & BLOOD GA S ORDERABLES Final Result [facility] [address] [place] [address] * FSH (06/20/2024 8:40 EDT) FSH 11.8 See Note mIU/mL 06/20/2024 18:38 EDT [facility] Blood VENOUS BLOOD / Unknown 06/20/2024 8:40 EDT 06/20/2024 17:16 EDT Narrative [facility] - 06/20/2024 18:38 EDT NOTE: Female FSH Reference Ranges (Menstruating): PHYSIOLOGICAL STATUS ? REFERENCE RANGE ? Follicular (-12 to -4 days): ?? 2.5 - 10.2 mIU/mL Midcycle (-3 to +2 days): ?3.4 - 33.4 mIU/mL Luteal (+4 to +12 days): ? 1.5 - 9.1 mIU/mL Postmenopausal: ?23.0 - 116.3 mIU/mL Reference Ranges for pediatric non-menstruating female patients have not been established. us Provider Outr Resulting Lab CHEMISTRY & BLOOD GA S ORDERABLES Final Result [facility] [address] [place] [id number] * PROGESTERONE (06/20/2024 8:40 EDT) [facility] Progesterone 0.3 See Table ng/mL 06/20/2024 18:24 EDT [facility] Comment: Female Reference Ranges: [...] a pathologist. Blood VENOUS BLOOD / Unknown 06/20/2024 8:40 EDT 06/20/2024 17:16 EDT us Provider Outr Resulting Lab CHEMISTRY & BLOOD GA S ORDERABLES Final Result Performing Organization Address City/State/[facility] Co de Phone Number [facility] [address] [place] [address] documented in this encounter Visit Diagnoses Not on filedocumented in this encounter Care Teams General Warehouse Associate Relationship Specialty Start Date End Date Rebekah Greco NP PCP - General 12/19/17 documented as of this encounter
--- OUTSIDE RECORDS SUMMARY | 2024-10-25 15:47 | XMS_ITS | Encounter Summary ---
Author Organization [facility] Address [facility] [place] [address] Care Team Providers Care Computer Operations Specialist Name Role Phone Tayler Gutiérrez MD Primary Care Provider + Encounter Details Date Type Department Care Team (Latest Contact Info) Description 04/18/2017 - 04/18/2017 11:59 PM EDT Hospital Encounter Radiology Library at [facility] [place] [address] Alexandre Escalante MD [facility] [place] [address] Pain Discharge Disposition: Home Social History Tobacco Use Types Packs/Day Years Used Date Smoking Tobacco: Never Sex and Gender Information Value Date Recorded Sex Assigned at Not on file Gender Identity Not on file Sexual Orientation Not on file documented as of this encounter Medications at Time of Discharge Medication Sig Dispensed Refills Start Date End Date multivitamin (THERAGRAN) Tablet Take 1 tablet by mouth daily. 10/03/2017 documented as of this encounter Plan of Treatment Upcoming Encounters Date Type Department Care Team (Late st Contact Info) Description 10/26/2024 3:45 PM EST Office Visit Dermatology at [place] [address] [facility] [place] [address] Duglas Raymond MD [address] [facility], [place] [address] documented as of this encounter Procedures Procedure Name Priority Date/Time Associated Diagnosis Comments FILM LIBRARY STORAGE ONLY MR ABDOMEN Routine 04/18/2017 12:00 AM EDT Pain documented in this encounter Results * Film Library- Storage Only MR Abdomen (04/18/2017 12:00 AM EDT) Narrative [facility] - 10/25/2017 9:13 PM EST This exam is for storage only and is auto-finalizing. Alexandre Canales MD IMG FILM LIBRARY ORDERABLES Performing Organization Address City/State/[facility] Co de Phone Number [place], [place] documented in this encounter Visit Diagnoses Diagnosis Pain Generalized pain documented in this encounter Care Teams Computer Operations Specialist Relationship Specialty Start Date End Date Tayler Gutiérrez MD [address] [place] [address] PCP - General 08/30/14 10/13/17 documented as of this encounter
--- OUTSIDE RECORDS SUMMARY | 2024-10-25 15:47 | XMS_ITS | Encounter Summary ---
Author Organization [facility] Address [facility] [place] [address] Care Team Providers Care Latin American Studies Professor Name Role Phone Tayler Gutiérrez MD Primary Care Provider + Reason for Visit * Diagnostic Test (Routine) - Closed Specialty Diagnoses / Procedures Referred By Isra gage Referred To Contact Radiology Diagnoses Chronic abdominal pain Procedures NM Gastric Emptying Scan Igor Denney MD [facility] GASTROENTEROLOGY [place] [address] [place] [address] Referral ID Status Reason Start Date Expiration Date V isits Requested Visits Authorized [id number] Closed Specialty Service Requested 10/03/2017 10/03/2018 5 5 Encounter Details Date Type Department Care Team (Latest Contact Info) Description 10/12/2017 9:39 AM EST Hospital Encounter [place] [address] Lisa Sage MD [facility] DR GASTROENTER[place] [address] Discharge Disposition: Home Social History Tobacco Use Types Packs/Day Years Used Date Smoking Tobacco: Never Smokeless Tobacco: Never Sex and Gender Information Value Date Recorded Sex Assigned at Not on file Gender Identity Not on file Sexual Orientation Not on file documented as of this encounter Medications at Time of Discharge Medication Sig Dispensed Refills Start Date End Date ANGELAR 35, 28, 1-35 mg-mcg Tablet TAKE ONE [...] 3:45 PM EST Office Visit Dermatology at [place] [address] [facility] [place] [address] Duglas Raymond MD [address] [facility], [place] [address] documented as of this encounter Procedures Procedure [...] at 10/12/2017 2:02 PM Lisa Sage MD G NM ORDERABLES documented in this encounter Visit Diagnoses Not on filedocumented in this encounter Care Teams Latin American Studies Professor Relationship Specialty Start Date End Date Tayler Gutiérrez MD [address] [place] [address] PCP - General 08/30/14 10/13/17 documented as of this encounter
--- OUTSIDE RECORDS SUMMARY | 2024-10-25 15:47 | XMS_ITS | Encounter Summary ---
Author Organization [facility] Address [address] [place] [address] Care Team Providers Care Dean Of Admissions Name Role Phone Rebekah Greco PAPER WOOD CUTTER Primary Care Provider [phone] Encounter Details Date Type Department Care Team (Late st Contact Info) Description 08/17/2024 Lab Requisition [facility] Pathology & Laboratory Medicine - [facility] [address], [place] [address] Outr Resulting Lab, Provider Social History Tobacco [...] Comments T3, TOTAL Routine 08/17/2024 7:35 EDT documented in this encounter Results * (ABNORMAL) T3, TOTAL (08/17/2024 7:35 EDT) T3, Total 466(H) 97 - 169 ng/dL 08/17/2024 18:37 EDT [facility] Blood VENOUS BLOOD / Unknown 08/17/2024 7:35 EDT 08/17/2024 17:47 EDT us Provider Outr Resulting Lab CHEMISTRY & BLOOD GA S ORDERABLES Final Result Performing Organization Address City/State/[facility] Co de Phone Number [facility] [address] [place] [address] documented in this encounter Visit Diagnoses Not on filedocumented in this encounter Care Teams Dean Of Admissions Relationship Specialty Start Date End Date Rebekah Greco NP PCP - General 12/19/17 documented as of this encounter
--- OUTSIDE RECORDS SUMMARY | 2024-10-25 15:47 | XMS_ITS | Encounter Summary ---
Author Organization [facility] Address [facility] [place] [address] Care Team Providers Care Custom Harvester Name Role Phone Tayler Gutiérrez MD Primary Care Provider + Reason for Referral * Diagnostic Test (Routine) - Closed Specialty Diagnoses / Procedures Referred By Contac t Referred To Contact Radiology Diagnoses Chronic abdominal pain Procedures NM Gastric Emptying Scan Igor Denney MD [facility] [place] [address] [place] [address] Referral ID Status Reason Start Date Expiration Date V isits Requested Visits Authorized [id number] Closed Specialty Service Requested 10/03/2017 10/03/2018 5 5 Reason for Visit * Diagnostic Test (Routine) - Closed Specialty Diagnoses / Procedures Referred By Contac t Referred To Contact Radiology Diagnoses Chronic abdominal pain Procedures NM Gastric Emptying Scan Igor Denney MD [facility] [place] [address] [place] [address] Referral ID Status Reason Start Date Expiration Date V isits Requested Visits Authorized [id number] Closed Specialty Service Requested 10/03/2017 10/03/2018 5 5 Encounter Details Date Type Department Care Team (Latest Contact Info) Description 10/12/2017 9:38 AM EST Hospital Encounter Nuclear [place] [address] Lisa Sage MD [facility] [place] [address] Chronic abdominal pain Discharge Disposition: Home Social History Tobacco Use Types Packs/Day Years Used Date Smoking Tobacco: Never Smokeless Tobacco: Never Sex and Gender Information Value Date Recorded Sex Assigned at Not on file Gender Identity Not on file Sexual Orientation Not on file documented as of this encounter Medications at Time of Discharge Medication Sig Dispensed Refills Start Date End Date KELNOR , 28, 1-35 mg-mcg Tablet TAKE [...] 3:45 PM EST Office Visit Dermatology at [place] [address] [place] [address] Duglas Raymond MD [address] [place] [address] documented as of this encounter Procedures Procedure Name Priority Date/Time Associated Diagnosis Comments NM GASTRIC EMPTYING SCAN Routine 10/12/2017 1:18 PM EST Chronic abdominal pain documented in this encounter Results * FL Gastric Emptying Scan (10/12/2017 1:18 PM EST) [...] at 10/12/2017 2:02 PM Lisa Sage MD IMG NM ORDERABLES documented in this encounter Visit Diagnoses Diagnosis Chronic abdominal pain Abdominal pain, unspecified site documented in this encounter Administered Medications Inactive Administered Medications - up to 3 most recent administrations Medication Order MAR Action Action Date Dose Rate Site technetium (Tc-99m) sulfur colloid injection 0.5 mCi 0.5 mCi, Intradermal, ONCE PRN, 1 dose, Starting on Tue10/12/17 at 1009, Until Tue10/12/17 at 1009, Per Protocol, Routine Given 10/12/2017 10:09 AM EST 0.5 mCi documented in this encounter Care Teams Custom Harvester Relationship Specialty Start Date End Date Tayler Gutiérrez MD [address] [place] [address] PCP - General 08/30/14 10/13/17 documented as of this encounter
--- OUTSIDE RECORDS SUMMARY | 2024-10-25 15:47 | XMS_ITS | Encounter Summary ---
Author Organization [facility] Address [address] [place] [address] Care Team Providers Care Paper Coating Supervisor Name Role Phone Rebekah Greco DIRECTOR CLINICAL OPERATIONS Primary Care Provider [phone] Encounter Details Date Type Department Care Team (Late st Contact Info) Description 07/20/2024 Lab Requisition [facility] Pathology & Laboratory Medicine - [facility] [address] [place], [place] [address] Outr Resulting Lab, Provider Social History Tobacco [...] Procedure Name Priority Date/Time Associated Diagnosis Comments LH Routine 07/20/2024 7:23 EDT documented in this encounter Results * LH (07/20/2024 7:23 EDT) Luteinizing Hormone <0.3 See Note mIU/mL 07/23/2024 9:27 EDT [facility] Comment: NOTE: Female Reference Ranges: Pre-Pubertal: ?<6.0 mIU/mL Menstruating: Follicular Phase(-12 to -4 days: ??1.9 - 12.5 mIU/mL Midcycle(-3 to +2 days): ?8.7 - 76.3 mIU/mL Luteal Phase(+4 to +12 days): ? 0.5 - 16.9 mIU/mL Post Menopausal: 15.9 - 54.0 mIU/mL Blood VENOUS BLOOD / Unknown 07/20/2024 7:23 EDT 07/20/2024 20:41 EDT us Provider Outr Resulting Lab CHEMISTRY & BLOOD GA S ORDERABLES Final Result [facility] [address] [place] [address] documented in this encounter Visit Diagnoses Not on filedocumented in this encounter Care Teams Paper Coating Supervisor Relationship Specialty Start Date End Date Rebekah Greco NP PCP - General 12/19/17 documented as of this encounter
--- OUTSIDE RECORDS SUMMARY | 2024-10-25 15:47 | XMS_ITS | Encounter Summary ---
Author Organization [facility] Address [address] [place] [address] Care Team Providers Care Electrical Superintendent Name Role Phone Rebekah Greco DRAFTER REFRIGERATION Primary Care Provider [phone] Encounter Details Date Type Department Care Team (Late st Contact Info) Description 07/27/2024 Lab Requisition [facility] Pathology & Laboratory Medicine - [facility] [address] [place], [place] [address] Outr Resulting Lab, Provider Social History Tobacco [...] Priority Date/Time Associated Diagnosis Comments PROGESTERONE Routine 07/27/2024 8:58 EDT ESTRADIOL, ADULTS Routine 07/27/2024 8:58 EDT documented in this encounter Results * PROGESTERONE (07/27/2024 8:58 EDT) Progesterone 46.5 See Table ng/mL 07/27/2024 17:55 EDT [facility] Comment: Female Reference Ranges: [...] a pathologist. Blood VENOUS BLOOD / Unknown 07/27/2024 8:58 EDT 07/27/2024 17:13 EDT us Provider Outr Resulting Lab CHEMISTRY & BLOOD GA S ORDERABLES Final Result Performing Organization Address [facility] Co de Phone Number [facility] [address] [place] [address] * ESTRADIOL, ADULTS (07/27/2024 8:58 EDT) Estradiol 1,558 See Note pg/mL 07/27/2024 17:52 EDT [facility] Comment: NOTE: FEMALE REFERENCE [...] this drug. Blood VENOUS BLOOD / Unknown 07/27/2024 8:58 EDT 07/27/2024 17:13 EDT us Provider Outr Resulting Lab CHEMISTRY & BLOOD GA S ORDERABLES Final Result Performing Organization Address [facility] Co de Phone Number [facility] [address] [place] [address] documented in this encounter Visit Diagnoses Not on filedocumented in this encounter Care Teams Electrical Superintendent Relationship Specialty Start Date End Date Rebekah Greco NP PCP - General 12/19/17 documented as of this encounter
--- OUTSIDE RECORDS SUMMARY | 2024-10-25 15:47 | XMS_ITS | Encounter Summary ---
Author Organization [facility] Address [address] [place] [address] Care Team Providers Care Ecd Name Role Phone Rebekah Greco UNIVERSITY [employer]NERSHIP REP Primary Care Provider [phone] Encounter Details Date Type Department Care Team (Late st Contact Info) Description 07/13/2024 Lab Requisition [facility] Pathology & Laboratory Medicine - [facility] [address] [place], [place] [address] Outr Resulting Lab, Provider Social History Tobacco [...] Priority Date/Time Associated Diagnosis Comments PROGESTERONE Routine 07/13/2024 7:37 EDT documented in this encounter Results * PROGESTERONE (07/13/2024 7:37 EDT) Progesterone 47.0 See Table ng/mL 07/13/2024 18:04 EDT [facility] Comment: Female Reference Ranges: PHYSIOLOGICAL [...] a pathologist. Blood VENOUS BLOOD / Unknown 07/13/2024 7:37 EDT 07/13/2024 16:55 EDT us Provider Outr Resulting Lab CHEMISTRY & BLOOD GA S ORDERABLES Final Result [facility] [address] [place] [address] documented in this encounter Visit Diagnoses Not on filedocumented in this encounter Care Teams Ecd Relationship Specialty Start Date End Date Rebekah Greco, GRACE PCP - General 12/19/17 documented as of this encounter
--- OUTSIDE RECORDS SUMMARY | 2024-10-25 15:47 | XMS_ITS | Encounter Summary ---
Author Organization [facility] Address [facility] [place] [address] Care Team Providers Care Agricultural Education Teacher Name Role Phone Tayler Gutiérrez MD Primary Care Provider + Reason for Visit * Diagnostic Test (Routine) - Closed Specialty Diagnoses / Procedures Referred By Isra gage Referred To Contact Radiology Diagnoses Chronic abdominal pain Procedures NM Gastric Emptying Scan Igor Denney MD [facility] [place] [address] [place] [address] Referral ID Status Reason Start Date Expiration Date V isits Requested Visits Authorized [id number] Closed Specialty Service Requested 10/03/2017 10/03/2018 5 5 Encounter Details Date Type Department Care Team (Latest Contact Info) Description 10/12/2017 9:40 AM EST Hospital Encounter [place] [address] Lisa Sage MD [facility] [place] [address] Discharge Disposition: Home Social History [...] 3:45 PM EST Office Visit Dermatology at [place] [address] [facility] [place] [phone] Duglas Raymond MD [address] [facility] [place] [address] documented as of this encounter Procedures Procedure [...] on filedocumented in this encounter Care Teams Agricultural Education Teacher Relationship Specialty Start Date End Date Tayler Gutiérrez MD [address] [place] [address] PCP - General 08/30/14 10/13/17 documented as of this encounter
--- OUTSIDE RECORDS SUMMARY | 2024-10-25 15:47 | XMS_ITS | Encounter Summary ---
Author Organization [facility] Address [address] [place] [address] Care Team Providers Care It Application Development Manager Name Role Phone Rebekah Greco SENIOR QUALITY ASSURANCE ENGINEER Primary Care Provider [phone] Encounter Details Date Type Department Care Team (Late st Contact Info) Description 08/14/2024 Lab Requisition [facility] Pathology & Laboratory Medicine - [facility] [address] [place], [place] [address] Outr Resulting Lab, Provider Social History Tobacco [...] Procedure Name Priority Date/Time Associated Diagnosis Comments ESTRADIOL, ADULTS Routine 08/14/2024 12: 25 EDT documented in this encounter Results * ESTRADIOL, ADULTS (08/14/2024 12:25 EDT) Estradiol 49 See Note pg/mL 08/14/2024 22:37 EDT [facility] Comment: NOTE: FEMALE REFERENCE RANGES: [...] & BLOOD GA S ORDERABLES Final Result [facility] [address] [place] [address] documented in this encounter Visit Diagnoses Not on filedocumented in this encounter Care Teams It Application Development Manager Relationship Specialty Start Date End Date Rebekah Greco NP PCP - General 12/19/17 documented as of this encounter
--- OUTSIDE RECORDS SUMMARY | 2024-10-25 15:47 | XMS_ITS | Encounter Summary ---
Author Organization [facility] Address [address] [place] [address] Care Team Providers Care Ict Business Analyst Name Role Phone Rebekah Greco BLENDING OPERATOR Primary Care Provider [phone] Encounter Details Date Type Department Care Team (Late st Contact Info) Description 01/09/2024 Lab Requisition [facility] Pathology & Laboratory Medicine - [facility] [address], [place] [address] Outr Resulting Lab, Provider Social History Tobacco [...] Procedure Name Priority Date/Time Associated Diagnosis Comments LYME AB Routine 01/09/2024 11:39 EDT ANTI NUCLEAR AB (ROMI), IFA Routine 01/09/2024 11:39 EDT documented in this encounter Results * LYME AB (01/09/2024 11:39 EDT) Lyme Ab Negative Negative 01/10/2024 10:37 EDT [facility] Blood VENOUS BLOOD / Unknown 01/09/2024 11:39 EDT 01/09/2024 16:45 EDT us Provider Outr Resulting Lab IMMUNOLOGY AND SEROL OGY ORDERABLES Final Result Performing Organization Address City/[facility]/ZIP Co de Phone Number [facility] [address] [place] [address] * (ABNORMAL) ANTI NUCLEAR AB (ROMI), IFA (01/09/2024 11:39 EDT) ROMI Interpretation Positive(A) Negative 01/10/2024 15:44 EDT [facility] Comment: For titers greater than or equal to 1:160 (except the centromere and nucleolar patterns) it is recommended that specific follow-up autoantibody testing ??(such as for dsDNA and Extractable Nuclear Antigens) be performed on all diffuse and/or speckled patterns NOTE: For add-on testing dsDNA is stable for 7 days refrigerated while Extractable Nuclear Antigens are only stable for 48 hours refrigerated. ROMI Titer and Pattern 1 1:320 Homogeneous 01/10/2024 15:44 EDT [facility] Blood VENOUS BLOOD / Unknown 01/09/2024 11:39 EDT 01/09/2024 16:45 EDT Narrative [facility] - 01/10/2024 15:44 EDT Results were obtained with the INOVA NOVA Lite HEp-2 ROMI Kit by indirect immunofluorescence. us Provider Outr Resulting Lab IMMUNOLOGY AND SEROL OGY ORDERABLES Final Result [facility] [address] [place] [address] documented in this encounter Visit Diagnoses Not on filedocumented in this encounter Care Teams Ict Business Analyst Relationship Specialty Start Date End Date Rebekah Greco NP PCP - General 12/19/17 documented as of this encounter
--- OUTSIDE RECORDS SUMMARY | 2024-10-25 15:47 | XMS_ITS | Encounter Summary ---
Author Organization [facility] Address [address] [place] [address] Care Team Providers Care Window Cutter Name Role Phone Rebekah Greco MOTOR AND CHASSIS INSPECTOR Primary Care Provider [phone] Encounter Details Date Type Department Care Team (Late st Contact Info) Description 06/28/2024 Lab Requisition [facility] Pathology & Laboratory Medicine - [facility] [address], [place] [address] Outr Resulting Lab, Provider Social History Tobacco [...] Priority Date/Time Associated Diagnosis Comments PROGESTERONE Routine 06/28/2024 7:10 EDT ESTRADIOL, ADULTS Routine 06/28/2024 7:10 EDT LH Routine 06/28/2024 7:10 EDT documented in this encounter Results * LH (06/28/2024 7:10 EDT) Luteinizing Hormone 12.6 See Note mIU/mL 06/28/2024 18:36 EDT [facility] Comment: NOTE: Female Reference Ranges: Pre-Pubertal: ?<6.0 mIU/mL Menstruating: Follicular Phase(-12 to -4 days: ??1.9 - 12.5 mIU/mL Midcycle(-3 to +2 days): ?8.7 - 76.3 mIU/mL Luteal Phase(+4 to +12 days): ? 0.5 - 16.9 mIU/mL Post Menopausal: 15.9 - 54.0 mIU/mL Blood VENOUS BLOOD / Unknown 06/28/2024 7:10 EDT 06/28/2024 17:34 EDT us Provider Outr Resulting Lab CHEMISTRY & BLOOD GA S ORDERABLES Final Result [facility] [address] [place] [address] * PROGESTERONE (06/28/2024 7:10 EDT) Progesterone <0.2 See Table ng/mL 06/28/2024 18:30 EDT [facility] Comment: Female Reference Ranges: PHYSIOLOGICAL [...] a pathologist. Blood VENOUS BLOOD / Unknown 06/28/2024 7:10 EDT 06/28/2024 17:34 EDT us Provider Outr Resulting Lab CHEMISTRY & BLOOD GA S ORDERABLES Final Result [facility] [address] [place] [address] * ESTRADIOL, ADULTS (06/28/2024 7:10 EDT) Estradiol 1,811 See Note pg/mL 06/28/2024 18:24 EDT [facility] Comment: NOTE: FEMALE [...] this drug. Blood VENOUS BLOOD / Unknown 06/28/2024 7:10 EDT 06/28/2024 17:34 EDT us Provider Outr Resulting Lab CHEMISTRY & BLOOD GA S ORDERABLES Final Result [facility] [address] [place] [phone] documented in this encounter Visit Diagnoses Not on filedocumented in this encounter Care Teams Window Cutter Relationship Specialty Start Date End Date Rebekah Greco NP PCP - General 12/19/17 documented as of this encounter
--- OUTSIDE RECORDS SUMMARY | 2024-10-25 15:47 | XMS_ITS | Encounter Summary ---
Author Organization [facility] Address [address] [place] [address] Care Team Providers Care Psychologist Developmental Name Role Phone Rebekah Greco ENVIRONMENTAL SPECIALIST Primary Care Provider [phone] Encounter Details Date Type Department Care Team (Late st Contact Info) Description 07/18/2024 Lab Requisition [facility] Pathology & Laboratory Medicine - [facility] [address] [place], [place] [id number] Outr Resulting Lab, Provider Social History Tobacco [...] Priority Date/Time Associated Diagnosis Comments PROGESTERONE Routine 07/18/2024 7:26 EDT ESTRADIOL, ADULTS Routine 07/18/2024 7:26 EDT LH Routine 07/18/2024 7:26 EDT documented in this encounter Results * LH (07/18/2024 7:26 EDT) Luteinizing Hormone <0.3 See Note mIU/mL 07/18/2024 19:26 EDT [facility] Comment: NOTE: Female Reference Ranges: Pre-Pubertal: ?<6.0 mIU/mL Menstruating: Follicular Phase(-12 to -4 days: ??1.9 - 12.5 mIU/mL Midcycle(-3 to +2 days): ?8.7 - 76.3 mIU/mL Luteal Phase(+4 to +12 days): ? 0.5 - 16.9 mIU/mL Post Menopausal: 15.9 - 54.0 mIU/mL Blood VENOUS BLOOD / Unknown 07/18/2024 7:26 EDT 07/18/2024 17:43 EDT us Provider Outr Resulting Lab CHEMISTRY & BLOOD GA S ORDERABLES Final Result [facility] [address] [place] [address] * PROGESTERONE (07/18/2024 7:26 EDT) Progesterone 44.0 See Table ng/mL 07/18/2024 18:26 EDT [facility] Comment: Female Reference [...] a pathologist. Blood VENOUS BLOOD / Unknown 07/18/2024 7:26 EDT 07/18/2024 17:43 EDT us Provider Outr Resulting Lab CHEMISTRY & BLOOD GA S ORDERABLES Final Result [facility] [address] [place] [address] * ESTRADIOL, ADULTS (07/18/2024 7:26 EDT) Estradiol 2,637 See Note pg/mL 07/18/2024 18:26 EDT [facility] Comment: NOTE: FEMALE [...] this drug. Blood VENOUS BLOOD / Unknown 07/18/2024 7:26 EDT 07/18/2024 17:43 EDT us Provider Outr Resulting Lab CHEMISTRY & BLOOD GA S ORDERABLES Final Result [facility] [address] [place] [address] documented in this encounter Visit Diagnoses Not on filedocumented in this encounter Care Teams Psychologist Developmental Relationship Specialty Start Date End Date Rebekah Greco NP PCP - General 12/19/17 documented as of this encounter
--- OUTSIDE RECORDS SUMMARY | 2024-10-25 15:47 | XMS_ITS | Encounter Summary ---
Author Organization [facility] Address [facility] [place] [address] Care Team Providers Care Black Top Raker Name Role Phone Tayler Gutiérrez MD Primary Care Provider + Encounter Details Date Type Department Care Team (Latest Contact Info) Description 07/11/2017 - 07/11/2017 11:59 PM EDT Hospital Encounter Radiology Library at [facility] [place] [address] Alexandre Escalante MD [facility] [place] [address] Pain Discharge Disposition: Home Social History Tobacco [...] TWICE A DAY NEEDED 0 06/21/2017 05/04/2018 multivitamin (THERAGRAN) Tablet Take 1 tablet by mouth daily. 10/03/2017 documented as of this encounter Plan of Treatment Upcoming Encounters Date Type Department Care Team (Late st Contact Info) Description 10/26/2024 3:45 PM EST Office Visit Dermatology at [address] [place] [address] Duglas Raymond MD [address] [facility] [address] documented as of this encounter Procedures Procedure Name Priority Date/Time Associated Diagnosis Comments FILM LIBRARY STORAGE ONLY DX GI STUDY Routine 07/11/2017 12:00 AM EDT Pain documented in this encounter Results * Film Library- Storage Only DX GI Study (07/11/2017 12:00 AM EDT) Narrative [facility] - 10/25/2017 9:15 PM EST This exam is for storage only and is auto-finalizing. Alexandre Canales MD IMG FILM LIBRARY ORDERABLES Performing Organization Address City/State/[facility] Co de Phone Number [place], [place] documented in this encounter Visit Diagnoses Diagnosis Pain Generalized pain documented in this encounter Care Teams Black Top Raker Relationship Specialty Start Date End Date Tayler Gutiérrez MD [address] [place] [address] PCP - General 08/30/14 10/13/17 documented as of this encounter
--- OUTSIDE RECORDS SUMMARY | 2024-10-25 15:47 | XMS_ITS | Clinical Summary ---
Author Organization [facility] Address [address] [place] [address] Care Team Providers Care Administrative Accountant Name Role Phone Rebekah Greco SPECIALTY SALES REPRESENTATIVE Primary Care Provider [phone] Allergies No known active allergies Medications Multivitamins [...] face, armpit or groin. 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 Encounters Date Type Department Care Team Description 08/17/2024 Lab Requisition [facility] Pathology & Laboratory Medicine [address] [address] Outr Resulting Lab, Provider 08/14/2024 Lab Requisition [facility] Pathology & Laboratory [address] [address] Outr Resulting Lab, Provider 08/08/2024 Lab Requisition [facility]ology & Laboratory [address] [address] Outr Resulting Lab, Provider 08/03/2024 Lab Requisition [facility]ology & Laboratory [address] [address] Outr Resulting Lab, Provider 07/27/2024 Lab Requisition [facility]ology & Laboratory [address] [address] Outr Resulting Lab, Provider from Last 3 Months Surgical History Surgery Date Site/Laterality Comments KNEE SURGERY 10/17/2003 - 10/16/2004 right knee lateral release (?) Meera Quinones PLANTAR FASCIA SURGERY 10/17/2011 - 10/16/2012 Right ABDOMINAL HERNIA REPAIR 10/17/2014 - 10/16/2015 HERNIA REPAIR Medical History Medical History Date Comments Depression Family History Medical History Relation Comments Colon Cancer Maternal Grandfather Pancreatic Cancer Maternal Grandfather Depression Mother Arthritis Paternal Grandmother Arthritis-Osteo Paternal Grandmother Relation Status Comments Maternal Grandfather Mother Paternal Grandmother Social History Tobacco Use Types Packs/Day Years [...] on file Sexual Orientation Not on file Obstetrics History Last Filed Vital Signs Vital Sign Reading [...] Body Mass Index 20.84 03/28/2017 1102 EDT Plan of Treatment Health Maintenance Due Date Last Done Comments Hepatitis B Vaccine (1 of 3 - 19+ 3-dose series) 2003 COVID-19 Vaccine (2023- season) 2024 Hepatitis C Screen Completed 08/18/2021, 06/23/2021 Procedures Procedure Name Priority Date/Time Associated Diagnosis [...] 97 - 169 ng/dL 08/17/2024 18:37 EDT [facility] Blood VENOUS BLOOD / Unknown 08/17/2024 7:35 EDT 08/17/2024 17:47 EDT us Provider Outr Resulting Lab CHEMISTRY & BLOOD GA S ORDERABLES Final Result [facility] [address] [place] [address] * ESTRADIOL, ADULTS (08/14/2024 12:25 EDT) Only the most recent of3 resultswithin the time period is included. Pathologist [facility] Estradiol 49 See Note pg/mL 08/14/2024 22:37 EDT [facility] Comment: NOTE: FEMALE REFERENCE [...] & BLOOD GA S ORDERABLES Final Result [facility] [address] [place] [address] * THYROPEROXIDASE ANTIBODY (08/07/2024 19:15 EDT) [facility] [address] Thyroperoxidase Ab <28 <=60 U/mL 2023 18:58 EDT [facility] Blood VENOUS BLOOD / Unknown 08/07/2024 19:15 EDT 08/08/2024 16:59 EDT us Provider Outr Resulting Lab CHEMISTRY & BLOOD GA S ORDERABLES Final Result [facility] [address] [place] [address] * (ABNORMAL) T3 FREE (08/07/2024 19:15 EDT) T3, Free 12.5(H) 2.8 - 5.3 pg/mL 08/08/2024 17:47 EDT [facility] Blood VENOUS BLOOD / Unknown 08/07/2024 19:15 EDT 08/08/2024 16:59 EDT us Provider Outr Resulting Lab CHEMISTRY & BLOOD GA S ORDERABLES Final Result [facility] [address] [place] [address] * PROGESTERONE (08/03/2024 11:45 EDT) Only the most recent of2 resultswithin the time period is included. Progesterone 45.5 See Table ng/mL 08/03/2024 17:55 EDT [facility] Comment: Female Reference Ranges: [...] & BLOOD GA S ORDERABLES Final Result [facility] [address] [place] [address] * HEPATITIS C AB W REFLEX TO HCV RNA BY PCR (08/18/2021 7:20 EDT) Hep C Antibody Negative Negative 08/19/2021 12:18 EDT [facility] Blood VENOUS BLOOD / Unknown 08/18/2021 7:20 EDT 08/18/2021 16:26 EDT us Provider Outr Resulting Lab CHEMISTRY & BLOOD GA S ORDERABLES Final Result Performing Organization Address City/[facility] Co de Phone Number [facility] [address] [place] [address] from Last 3 Months or Most Recently Relevant to Health Maintenance Insurance [facility] Care Teams Administrative Accountant Relationship Specialty Start Date End Date Rebekah Greco NP PCP - General 12/19/17
--- OUTSIDE RECORDS SUMMARY | 2024-10-25 15:47 | XMS_ITS | Encounter Summary ---
Author Organization [facility] Address [address] [place] [address] Care Team Providers Care Shuttle Operator Name Role Phone Rebekah Greco PROFESSOR OF EDUCATION Primary Care Provider [phone] Encounter Details Date Type Department Care Team (Late st Contact Info) Description 07/16/2024 Lab Requisition [facility] Pathology & Laboratory Medicine - [facility] [address] [place], [place] [address] Outr Resulting Lab, Provider Social History Tobacco [...] Procedure Name Priority Date/Time Associated Diagnosis Comments HOLD SST Today 07/16/2024 7:22 EDT PROGESTERONE Today 07/16/2024 7:22 EDT ESTRADIOL, ADULTS Today 07/16/2024 7:22 EDT documented in this encounter Results * HOLD SST (07/16/2024 7:22 EDT) Hold Hold 07/16/2024 18:02 EDT [facility] Blood VENOUS BLOOD / Unknown 07/16/2024 7:22 EDT 07/16/2024 16:55 EDT us Provider Outr Resulting Lab LAB INFO SERVICE AND SUPPORT & PHONE RESULT Final Result [facility] [address] [place] [address] * PROGESTERONE (07/16/2024 7:22 EDT) Progesterone 26.2 See Table ng/mL 07/16/2024 18:03 EDT [facility] Comment: Female Reference Ranges: [...] a pathologist. Blood VENOUS BLOOD / Unknown 07/16/2024 7:22 EDT 07/16/2024 16:55 EDT Provider Outr Resulting Lab CHEMISTRY & BLOOD GA S ORDERABLES Final Result Performing Organization Address [facility] de Phone Number [facility] [address] [place] [address] * ESTRADIOL, ADULTS (07/16/2024 7:22 EDT) Estradiol 2,183 See Note pg/mL 07/16/2024 18:03 EDT [facility] Comment: NOTE: FEMALE REFERENCE [...] this drug. Blood VENOUS BLOOD / Unknown 07/16/2024 7:22 EDT 07/16/2024 16:55 EDT us Provider Outr Resulting Lab CHEMISTRY & BLOOD GA S ORDERABLES Final Result Performing Organization Address [facility] de Phone Number [facility] [address] [place] [address] documented in this encounter Visit Diagnoses Not on filedocumented in this encounter Care Teams Shuttle Operator Relationship Specialty Start Date End Date Rebekah Greco, GRACE PCP - General 12/19/17 documented as of this encounter
--- OUTSIDE RECORDS SUMMARY | 2024-10-25 15:47 | XMS_ITS | Encounter Summary ---
Author Organization [facility] Address [facility] [place] [address] Care Team Providers Care Die Engraver Name Role Phone Tayler Gutiérrez MD Primary Care Provider + Encounter Details Date Type Department Care Team (Latest Contact Info) Description 03/30/2017 - 03/30/2017 11:59 PM EDT Hospital Encounter Radiology Library at [facility] [place] [address] [facility] [place] [address] Pain Discharge Disposition: Home Social History Tobacco [...] 3:45 PM EST Office Visit Dermatology at [place] [address] [facility] [place] [address] Duglas Raymond MD [address] [facility] [address] documented as of this encounter Procedures Procedure Name Priority Date/Time Associated Diagnosis Comments FILM LIBRARY STORAGE ONLY CT ABDOMEN AND PELVIS Routine 03/30/2017 12:00 AM EDT Pain documented in this encounter Results * Film Library- Storage Only CT Abdomen & Pelvis (03/30/2017 12:00 AM EDT) Narrative [facility]NOTE 2] - 10/25/2017 9:16 PM EST This exam is for storage only and is auto-finalizing. Alexandre Canales MD IMG FILM LIBRARY ORDERABLES [place], [place] documented in this encounter Visit Diagnoses Diagnosis Pain Generalized pain documented in this encounter Care Teams Die Engraver Relationship Specialty Start Date End Date Tayler Gutiérrez MD [address] [place] [address] PCP - General 08/30/14 10/13/17 documented as of this encounter
--- OUTSIDE RECORDS SUMMARY | 2024-10-25 15:47 | XMS_ITS | Encounter Summary ---
Author Organization [facility] Address [facility] [place] [address] Care Team Providers Care Title I Paraprofessional Name Role Phone Tayler Gutiérrez MD Primary Care Provider + Reason for Visit * Reason Comments Rash Encounter Details Date Type Department Care Team (Late st Contact Info) Description 08/30/2014 2:00 PM EST Office Visit Dermatology at [facility] [address] [place] [address] Jennyfer Peng MD Atopic dermatitis Discharge Disposition: Home Social History Tobacco Use Types Packs/Day Years Used Date Smoking Tobacco: Never Sex and Gender Information Value Date Recorded Sex Assigned at Not on file Gender Identity Not on file Sexual Orientation Not on file documented as of this encounter Progress Notes * Wally Chawla MD - 08/31/2014 9:36 AM EST I directly supervised Dr. Jennyfer Peng during this office visit. Dr. Peng presented the history and physical exam to me. I then saw and examined this patient with Dr. Peng. We reviewed the history and pertinent details and I confirmed the physical findings. I agree with the details of the historyand physical exam as documented in Dr. Peng's note. No obvious contactants on a lot of questioning.Advised changing from liquid type to bar soap. Tested at [facility]; I am not sure what was tested, likely ACDS 50? As this was what was tested on another patient I saw from that practice. I willrequest the test series copy so I can review what was testing. We can repeat test, seems unlikely to reveal a positive given this history intake and exposures. I did encourage the patient to follow-up ,as over time the etiology may become more clear when following with the same provider. WALLY CHAWLA MD Staff Physician * Jennyfer Peng MD - 08/30/2014 2:34 PM EST DERMATOLOGY - NEW PATIENT NOTE Date of service: 08/30/2014 Jerome Robledo : 1985 Dermatology Resident Note: Jennyfer Peng MD, PGY2 Chief Complaint Patient presents with ??? Rash HPI: Ms. Jerome Robledo is a 29 y.o. female. This is a new patient to me, seen in consultation and referred by [facility] specifically for the evaluation and management of the above problem. 15 months ago (in May 2013) she developed a rash on her abdomen that spread to involve her arms, legs and back. It spared the face, breasts and groin. She did not have such a rash prior to adulthood. She cannot think of any identifiable triggers prior to the onset of the rash, including no new drugs, no moving houses, no new pets. The rash is extremely itchy, sometimes unbearably so, and makes her feel ill due to the intensity of scratching. Water and heat worsen the itch. The only thing that helps is prednisone of which she has taken two to three courses, though the rash recurs soon after stopping prednisone. Her is not itchy. The involvement of her abdomen never goes away, and her last flare was in June when it spread to involve the arms. The abdomen has a band of red andthe flares look like patchy splotchiness which makes her wonder whether there are two separate processes. Today is a really good day for her skin, compared to other days, with the only involved site being the abdomen. Her work-up thus far includes a skin biopsy which revealed superficial perivascular dermatitis with mild spongiosis, skin scrapings for fungus and scabies, cultures, Allergy consultation (11/12/13),patch testing which revealed only an allergy to bacitracin and blood work which she states was normal. She never uses bacitracin so it is not relevant to her. She was evaluated during [facility] and was thought to have an allergy; she states some people thought the patch testing should be repeated, and some thought she should be referred to [facility] for further patch testing. In addition to prednisone, she has tried topical steroids including clobetasol and betametasone valerate, antihistamines, Elidel 1% BID, and phototherapy. She did phototherapy twice a week for several weeks (four treatments according to her paper records) but had to stop because she lives near the [facility] and had difficulty with the distance to [place]. She also tried an oral pill (shedoes not recall its name) which made the rash worse, causing it to extend above the line on her neck where usually there was a sharp cutoff. In February she flared and started a gluten free diet which hashelped her lose 20 lbs. At one point it was thought to be a drug hypersensitivity and so she stopped bupropion and spironolactone. She has also changed control pills. She has tried changing bras and wearing no bra, without improvement of the rash on her upper abdomen. Her current skin regimen includes: Clearasil and Aveeno to the face, Cerave lotion to the body, Dove body wash, clear laundry detergent, no dryer sheets. Tries to use lukewarm water for bathing/showering. She is not using any topical steroids currently because they do not seem to do any good; she is itching again within an hour of application. She is not using any oral medications for this problem. This problem is very distressing for patient. 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 She was contemplating having a baby prior to the onset of this rash, which has now been put off. Past Skin History: Acne No history of eczema prior to this rash Past Medical History: Seasonal rhinitis Anxiety Insomnia No personal h/o asthma Past Surgical History: S/p right knee and foot surgery. No metal implants. Medications Current Outpatient Prescriptions Medication Sig Dispense Refill ??? multivitamin (THERAGRAN) Tablet Take 1 tablet by mouth daily. No current facility-administered medications for this visit. Allergies: Narcotics Family History: Father has similar rash that started four years ago but has not been given a definitive diagnosis. 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 The school is in an old building from the 60s and has cloudy air which has prompted them to wonder if there is something in the school environment related to the rash. and has a dog. Does not smoke. Enjoys photography. Review of Systems: General: Feels well. No fever, no recent cold. +Weight loss, which pt attributes to gluten-free diet as well as being busy. Heme/lymph: No night sweats. No lymphadenopathy. Skin: As per HPI; no other skin concerns. Examination: Constitutional: Patient was alert, well-appearing and in no noticeable distress. Intermittently tearful. Skin: Focused exam of the upper abdomen. Specific skin findings: A. Lichenified, red plaque in a linear distribution along upper abdomen. Pt brings pictures which demonstrate more widespread involvement of a red eruption. Labs/Testing - Outside pathology report dated 08/06/2013 Skin of arm, right anterior distal upper, punch biopsy: Superficial perivascular dermatitis with mild spongiosis. See microscopic and comment. Comment: The findings are relatively subtle. Present is evidence of excoriation. The epidermis shows mild spongiosis, raising an eczematous process as a consideration. Within the dermis are rare eosinophils also raising a dermal hypersensitivity reaction, such as a drug-related eruption, as a consideration as well. The density of the eosinophils is not typical for an arthropod assault reaction purnima allergic contact eczematous process. Microscopic Description: Sections consist of a punch biopsy of skin. There is mild epidermal spongiosis with associated erosion. Within the dermis, is a superficial, predominantly perivascular, lymphomononuclear infiltrate. Rare eosinophils are noted. Diagnosis/Assessment/Treatment Plan: A. Atopic dermatitis: This is a challenging problem due to the difficulty of controlling symptoms. The possibility of a role for allergic contact dermatitis has been explored elsewhere without usefulresults, with the only allergen being bacitracin which Ms. Robldeo does not use. We discussed the rolefor patch testing and advised the pt that the utility of repeat patch testing would be minimal. A second round of patch testing is possible but would not likely reveal any additional clinically relevant positives. Drug hypersensitivity is a consideration, though pt has removed nearly all medications (except MVI) without complete resolution of the rash. Therefore, recommendations include: -Stop using Dove body wash. Use Dove bar soap instead. -Consider taking a daily antihistamine such as cetirizine. -Trial of alternative topical steroid was offered, but pt declines this. We discussed other treatment options including light therapy and enrollment in a trial for experimental treatment options, although both of these would be difficult for patient due to the travel time involved. Systemic immunosu ppression would not be indicated at the present time given the limited extent of skin involvement. -Encouraged pt to continue to follow-up with a securities attorney for longitudinal care, as this may help to understand the evolution and etiology of her condition. I am happy to see the patient back if she so chooses. Follow-up PRN. I, Lynnette Johnson [facility], am documenting this encounter acting as the scribe for and in the presence of Dr. Jennyfer Peng. I performed the above scribed service and agree with the accuracy of the documentation of this encounter. Jennyfer Peng MD, PGY2 Resident in Dermatology [facility] Patient seen and evaluated with staff securities attorney: Wally Chawla MD Section of Dermatology [facility] documented in this encounter Plan of Treatment Upcoming Encounters Date Type Department Care Team (Late st Contact Info) Description 10/26/2024 3:45 PM EST Office Visit Dermatology at [place] [address] [facility] [place] [phone] Duglas Raymond MD [address] [facility], [place] [address] documented as of this encounter Visit Diagnoses Diagnosis Atopic dermatitis Other atopic dermatitis and related conditions documented in this encounter Care Teams Title I Paraprofessional Relationship Specialty Start Date End Date Tayler Gutiérrez MD [address] [place] [phone] PCP - General 08/30/14 10/13/17 documented as of this encounter
--- OUTSIDE RECORDS SUMMARY | 2024-10-25 15:47 | XMS_ITS | Encounter Summary ---
Author Organization [facility] Address [facility] [place] [address] Care Team Providers Care Supervisor Bottle House Cleaners Name Role Phone Tayler Gutiérrez MD Primary Care Provider + Reason for Visit * Diagnostic Test (Routine) - Closed Specialty Diagnoses / Procedures Referred By Isra gage Referred To Contact Radiology Diagnoses Chronic abdominal pain Procedures NM Gastric Emptying Scan Igor Denney MD [facility] [place] [address] [place] [address] Referral ID Status Reason Start Date Expiration Date V isits Requested Visits Authorized [id number] Closed Specialty Service Requested 10/03/2017 10/03/2018 5 5 Encounter Details Date Type Department Care Team (Latest Contact Info) Description 10/12/2017 9:40 AM EST Hospital Encounter [place] [address] Lisa Sage MD [facility] [place] [address] Discharge Disposition: Home Social History [...] 3:45 PM EST Office Visit Dermatology at [place] [address] [facility] [place] [phone] Duglas Raymond MD [address] [facility], [place] [address] documented as of this encounter Procedures Procedure [...] on filedocumented in this encounter Care Teams Supervisor Bottle House Cleaners Relationship Specialty Start Date End Date Tayler Gutiérrez MD [address] [place] [address] PCP - General 08/30/14 10/13/17 documented as of this encounter
--- OUTSIDE RECORDS SUMMARY | 2024-10-25 15:47 | XMS_ITS | Encounter Summary ---
Author Organization [facility] Address [facility] [place] [address] Care Team Providers Care Marine Structural Designer Name Role Phone Tayler Gutiérrez MD Primary Care Provider + Encounter Details Date Type Department Care Team (Latest Contact Info) Description 09/12/2017 - 09/12/2017 11:59 PM EST Hospital Encounter Radiology Library at [facility] [phone] Austen Wilkinson MD [facility] [place] [address] Pain Discharge Disposition: Home Social History Tobacco [...] 6 HOURS NEEDED 0 07/13/2017 05/04/2018 multivitamin (THERAGRAN) Tablet Take 1 tablet by mouth daily. 10/03/2017 documented as of this encounter Plan of Treatment Upcoming Encounters Date Type Department Care Team (Late st Contact Info) Description 10/26/2024 3:45 PM EST Office Visit Dermatology at [place] [address] [place] [address] Duglas Raymond MD [address] [address] [address], [place] [address] documented as of this encounter Procedures Procedure Name Priority Date/Time Associated Diagnosis Comments FILM LIBRARY STORAGE ONLY CT ABDOMEN AND PELVIS Routine 09/12/2017 12:00 AM EST Pain documented in this encounter Results * Film Library- Storage Only CT Abdomen & Pelvis (09/12/2017 12:00 AM EST) Narrative [facility] - 09/13/2017 3:57 PM EST This exam is for storage only and is auto-finalizing. Austen Wilkinson MD IMG FILM LIBRARY OR DERABLES Performing Organization Address City/State/[facility] de Phone Number [place], [place] documented in this encounter Visit Diagnoses Diagnosis Pain Generalized pain documented in this encounter Care Teams Marine Structural Designer Relationship Specialty Start Date End Date Tayler Gutiérrez MD [address] [place] [address] PCP - General 08/30/14 10/13/17 documented as of this encounter
--- OUTSIDE RECORDS SUMMARY | 2024-10-25 15:47 | XMS_ITS | Encounter Summary ---
Author Organization [facility] Address [address] [place] [address] Care Team Providers Care Supervisor Webbing Name Role Phone Rebekah Greco CONTRACT LAW SPECIALIST Primary Care Provider [phone] Encounter Details Date Type Department Care Team (Late st Contact Info) Description 04/18/2024 Lab Requisition [facility] Pathology & Laboratory Medicine - [facility] [address], [place] [address] Outr Resulting Lab, Provider Social History Tobacco [...] Date/Time Associated Diagnosis Comments HOLD SST Today 04/18/2024 15:28 EDT CCP ANTIBODIES Today 04/18/2024 15:28 EDT RHEUMATOID FACTOR Today 04/18/2024 15: 28 EDT ANTI NUCLEAR AB (ROMI), IFA Today 04/18/2024 15:28 EDT documented in this encounter Results * HOLD SST (04/18/2024 15:28 EDT) Hold Hold 04/18/2024 22:31 EDT [facility] Blood VENOUS BLOOD / Unknown 04/18/2024 15:28 EDT 04/18/2024 21:29 EDT us Provider Outr Resulting Lab LAB INFO SERVICE AND SUPPORT & PHONE RESULT Final Result [facility] [address] [place] [address] * RHEUMATOID FACTOR (04/18/2024 15:28 EDT) [facility] Rheumatoid Factor <8.6 <12.0 IU/mL 04/18/2024 21:47 EDT [facility] Blood VENOUS BLOOD / Unknown 04/18/2024 15:28 EDT 04/18/2024 21:29 EDT us Provider Outr Resulting Lab CHEMISTRY & BLOOD GA S ORDERABLES Final Result [facility] [address] [place] [address] * (ABNORMAL) ANTI NUCLEAR AB (ROMI), IFA (04/18/2024 15:28 EDT) Pathologist [facility] ROMI Interpretation Positive(A) Negative 04/20/2024 14:06 EDT [facility] Comment: For titers greater than [...] ROMI Titer and Pattern 1 1:320 Homogeneous 04/20/2024 14:06 EDT [facility] Blood VENOUS BLOOD / Unknown 04/18/2024 15:28 EDT 04/18/2024 21:29 EDT Narrative [facility] - 04/20/2024 14:06 EDT Results were obtained with the [employer] Night[employer] HEp-2 ROMI Kit by indirect immunofluorescence. us Provider Outr Resulting Lab IMMUNOLOGY AND SEROL OGY ORDERABLES Final Result Performing Organization Address [facility] [address]/[facility] Co de Phone Number [facility] [address] [place] [phone] * CCP ANTIBODIES (04/18/2024 15:28 EDT) CCP Antibodies <2.5 <5.0 U/mL 04/19/2024 8:37 EDT [facility] Blood VENOUS BLOOD / Unknown 04/18/2024 15:28 EDT 04/18/2024 21:29 EDT us Provider Outr Resulting Lab IMMUNOLOGY AND SEROL OGY ORDERABLES Final Result Performing Organization Address City/[facility] [address]/ZIP Co de Phone Number [facility] [address] [place] [phone] documented in this encounter Visit Diagnoses Not on filedocumented in this encounter Care Teams Supervisor Webbing Relationship Specialty Start Date End Date Rebekah Greco NP PCP - General 12/19/17 documented as of this encounter
--- OUTSIDE RECORDS SUMMARY | 2024-10-25 15:47 | XMS_ITS | Encounter Summary ---
Author Organization [facility] Address [address] [place] [address] Care Team Providers Care Surgical Resident Name Role Phone Rebekah Greco NEURO OPHTHALMOLOGIST Primary Care Provider [phone] Encounter Details Date Type Department Care Team (Late st Contact Info) Description 06/20/2024 Lab Requisition [facility] Pathology & Laboratory Medicine - [facility] [address] [place], [place] [address] Outr Resulting Lab, Provider Social History Tobacco [...] Date/Time Associated Diagnosis Comments HOLD SST Today 06/20/2024 8:40 EDT HOLD SST Today 06/20/2024 8:40 EDT ESTRADIOL, ADULTS Today 06/20/2024 8:40 EDT documented in this encounter Results * HOLD SST (06/20/2024 8:40 EDT) Hold Hold 06/20/2024 18:31 EDT [facility] Blood VENOUS BLOOD / Unknown 06/20/2024 8:40 EDT 06/20/2024 17:16 EDT us Provider Outr Resulting Lab LAB INFO SERVICE AND SUPPORT & PHONE RESULT Final Result Performing Organization Address [facility] [address]/ZIP Co de Phone Number [facility] [address] [place] [address] * HOLD SST (06/20/2024 8:40 EDT) Hold Hold 06/20/2024 18:31 EDT [facility] Blood VENOUS BLOOD / Unknown 06/20/2024 8:40 EDT 06/20/2024 17:16 EDT us Provider Outr Resulting Lab LAB INFO SERVICE AND SUPPORT & PHONE RESULT Final Result Performing Organization Address [facility] [address]/ZIP Co de Phone Number [facility] [address] [place] [address] * ESTRADIOL, ADULTS (06/20/2024 8:40 EDT) Estradiol 48 See Note pg/mL 06/20/2024 18:08 EDT [facility] Comment: [...] this drug. Blood VENOUS BLOOD / Unknown 06/20/2024 8:40 EDT 06/20/2024 17:16 EDT us Provider Outr Resulting Lab CHEMISTRY & BLOOD GA S ORDERABLES Final Result [facility] [address] [place] [address] documented in this encounter Visit Diagnoses Not on filedocumented in this encounter Care Teams Surgical Resident Relationship Specialty Start Date End Date Rebekah Greco NP PCP - General 12/19/17 documented as of this encounter
--- OUTSIDE RECORDS SUMMARY | 2024-10-25 15:47 | XMS_ITS | Encounter Summary ---
Author Organization [facility] Address [address] [place] [address] Care Team Providers Care Sack Repairer Name Role Phone Rebekah Greco INSIDE FINISHER Primary Care Provider [phone] Encounter Details Date Type Department Care Team (Late st Contact Info) Description 08/03/2024 Lab Requisition [facility] Pathology & Laboratory Medicine - [facility] [address] [place], [place] [address] Outr Resulting Lab, Provider Social History Tobacco [...] Priority Date/Time Associated Diagnosis Comments PROGESTERONE Routine 08/03/2024 11:45 EDT ESTRADIOL, ADULTS Routine 08/03/2024 11: 45 EDT documented in this encounter Results * PROGESTERONE (08/03/2024 11:45 EDT) Progesterone 45.5 See Table ng/mL 08/03/2024 17:55 EDT [facility] Comment: Female Reference Ranges: PHYSIOLOGICAL [...] S ORDERABLES Final Result Performing Organization Address [facility] Co de Phone Number [facility] [address] [place] [address] * ESTRADIOL, ADULTS (08/03/2024 11:45 EDT) [facility] Signature Estradiol 2,130 See Note pg/mL 08/03/2024 17:55 EDT [facility] Comment: NOTE: FEMALE REFERENCE RANGES: [...] this drug. Blood VENOUS BLOOD / Unknown 08/03/2024 11:45 EDT 08/03/2024 16:56 EDT us Provider Outr Resulting Lab CHEMISTRY & BLOOD GA S ORDERABLES Final Result Performing Organization Address [facility] Co de Phone Number [facility] [address] [place] [address] documented in this encounter Visit Diagnoses Not on filedocumented in this encounter Care Teams Sack Repairer Relationship Specialty Start Date End Date Rebekah Greco NP PCP - General 12/19/17 documented as of this encounter
--- OUTSIDE RECORDS SUMMARY | 2024-10-25 15:48 | XMS_ITS | Encounter Summary ---
Author Organization [facility] Address [address] [place] [address] Care Team Providers Care Cab Driver Name Role Phone Tayler Gutiérrez MD Primary Care Provider + Reason for Referral * (Routine) - Closed Specialty Diagnoses / Procedures Referred By Contac t Referred To Contact Diagnoses Duodenal mass Procedures SECONDARY READ BODY CT Bacilio Laguna MD Phone: tel: fax: Referral ID Status Reason Start Date Expiration Date Visits Re quested Visits Authorized [id number] Closed 03/18/2017 1 1 Encounter Details Date Type Department Care Team (Late st Contact Info) Description 03/18/2017 Orders Only [facility] Hematology & Oncology - [facility] [address], [place] [address] Vianey Cervantes, RN [address] [place] [address] Duodenal mass (Primary Dx) Social History Tobacco Use Types Packs/Day Years Used Date Smoking Tobacco: Never Smokeless Tobacco: Never Alcohol Use Standard Drinks/Week Comments Yes 0 (1 standard drink = 0.6 oz pur e alcohol) one drink a week Comments No Sex and Gender Information Value [...] shopping? Answer Date of Assessment Author No 01/01/2016 10:31 EDT documented as of this encounter Mental Status * Because of a physical, mental, or emotional condition, does this person have serious difficulty concentrating, remembering, or making decisions? Answer Entry Date Author No 01/01/2016 10:31 EDT documented in this encounter Plan of Treatment Not on file documented as of this encounter Procedures Procedure Name Priority Date/Time Associated Diagnosis Comments SECONDARY READ BODY CT Routine 03/18/2017 14:50 EDT Duodenal mass documented in this encounter Results * SECONDARY READ BODY CT (03/18/2017 14:50 EDT) Anatomical Region Laterality Modality Other 03/18/2017 14:5 0 EDT 03/18/2017 15:52 EDT Narrative 03/18/2017 15:52 EDT [address] BODY [address] ??03/18/2017 2:50 PM Signs and Symptoms/Comments: ?? K31.89-Other diseases of stomach and ohliikag-XVD-62; Routine/Other-Please Explain in the Next Question; please confirm outside interpretation - [facility] 02/21/17 ct abd pelvis Technique: CT of the abdomen and pelvis was performed following the administration intravenous contrast; coronal and sagittal multiplanar reconstructions generated. This was performed at [facility]. Request was submitted for secondary read. Comparison: Outside abdominal ultrasound January 20, 2017 Findings: Lower chest: The lower lungs are clear. Hepatobiliary: No suspicious liver lesion is identified. No biliary dilatation is identified. The gallbladder is normal. Normal caliber biliary tree. Spleen, pancreas, adrenal glands: The spleen, pancreas, and adrenal glands are normal. Kidneys, ureters, bladder: The kidneys enhance symmetrically. No suspicious renal mass is identified. No hydronephrosis or nephrolithiasis is present. Uterus, ovaries: The uterus is normal. No adnexal mass is identified. Bowel: Asymmetric hypoattenuation involving the anterior wall of the 2nd portion of the duodenum. There is a proximally 7 cm intussusception involving the proximal jejunum (Axial 22, coronal 20). No obstruction or associated lead point mass. No inflammatory bowel wall changes are identified Peritoneal cavity / Subperitoneal space: No free air or free fluid is identified. Lymphovascular: No abdominal lymphadenopathy is identified. No atherosclerosis is identified. Abdominal wall: No bowel containing hernia is identified. Musculoskeletal: No suspicious osseous lesion is identified. No fracture is identified. Impression: 1. Nonspecific hypoattenuation involving the anterior wall of the 2nd portion of the duodenum, without focal mass. 2. Jejunal intussusception without obstruction or identifiable lead point. I have personally reviewed the images and the above interpretation and agree with the findings. Procedure Note Hermilo Zambrano MD - 03/18/[address] 03/18/2017 2:50 PM Signs and Symptoms/Comments: K31.89-Other diseases of stomach and qbklmada-JFI-15; Routine/Other-Please Explain in the Next Question; please confirm outside interpretation - [facility] 02/21/17 ct abd pelvis Technique: CT of the abdomen and pelvis was performed following the administration intravenous contrast; coronal and sagittal multiplanar reconstructions generated. This was performed at [facility]. Request was submitted for secondary read. Comparison: Outside abdominal ultrasound January 20, 2017 Findings: Lower chest: The lower lungs are clear. Hepatobiliary: No suspicious liver lesion is identified. No biliary dilatation is identified. The gallbladder is normal. Normal caliber biliary tree. Spleen, pancreas, adrenal glands: The spleen, pancreas, and adrenal glands are normal. Kidneys, ureters, bladder: The kidneys enhance symmetrically. No suspicious renal mass is identified. No hydronephrosis or nephrolithiasis is present. Uterus, ovaries: The uterus is normal. No adnexal mass is identified. Bowel: Asymmetric hypoattenuation involving the anterior wall of the 2nd portion of the duodenum. There is a proximally 7 cm intussusception involving the proximal jejunum (Axial 22, coronal 20). No obstruction or associated lead point mass. No inflammatory bowel wall changes are identified Peritoneal cavity / Subperitoneal space: No free air or free fluid is identified. Lymphovascular: No abdominal lymphadenopathy is identified. No atherosclerosis is identified. Abdominal wall: No bowel containing hernia is identified. Musculoskeletal: No suspicious osseous lesion is identified. No fracture is identified. Impression: 1. Nonspecific hypoattenuation involving the anterior wall of the 2nd portion of the duodenum, without focal mass. 2. Jejunal intussusception without obstruction or identifiable lead point. I have personally reviewed the images and the above interpretation and agree with the findings. us Bacilio Laguna MD IMG OTHER IMAGING ORDERABLES Final Result documented in this encounter Visit Diagnoses Diagnosis Duodenal mass- Primary Other specified disorder of stomach and duodenum documented in this encounter Care Teams Cab Driver Relationship Specialty Start Date End Date Tayler Gutiérrez MD [address] [place] [id number] PCP - General 09/17/14 12/18/17 documented as of this encounter
--- OUTSIDE RECORDS SUMMARY | 2024-10-25 15:48 | XMS_ITS | Encounter Summary ---
Author Organization [facility] Address [address] [place] [address] Care Team Providers Care Water Conservation Specialist Name Role Phone Rebekah Greco SAW STRAIGHTENER Primary Care Provider [phone] Encounter Details Date Type Department Care Team (Late st Contact Info) Description 07/11/2023 Lab Requisition [facility] Pathology & Laboratory Medicine - [facility] [address], [place] [address] Outr Resulting Lab, Provider Social History Tobacco [...] Priority Date/Time Associated Diagnosis Comments PROGESTERONE Routine 07/11/2023 7:45 EDT ESTRADIOL, ADULTS Routine 07/11/2023 7:45 EDT LH Routine 07/11/2023 7:45 EDT documented in this encounter Results * LH (07/11/2023 7:45 EDT) Luteinizing Hormone 17.0 See Note mIU/mL 07/11/2023 18:21 EDT [facility] Comment: NOTE: Female Reference Ranges: Pre-Pubertal: ?<6.0 mIU/mL Menstruating: Follicular Phase(-12 to -4 days: ??1.9 - 12.5 mIU/mL Midcycle(-3 to +2 days): ?8.7 - 76.3 mIU/mL Luteal Phase(+4 to +12 days): ? 0.5 - 16.9 mIU/mL Post Menopausal: 15.9 - 54.0 mIU/mL Blood VENOUS BLOOD / Unknown 07/11/2023 7:45 EDT 07/11/2023 17:12 EDT us Provider Outr Resulting Lab CHEMISTRY & BLOOD GA S ORDERABLES Final Result [facility] [address] [place] [address] * PROGESTERONE (07/11/2023 7:45 EDT) Progesterone <0.2 See Table ng/mL 07/11/2023 17:58 EDT [facility] Comment: Female Reference Ranges: PHYSIOLOGICAL [...] a pathologist. Blood VENOUS BLOOD / Unknown 07/11/2023 7:45 EDT 07/11/2023 17:12 EDT us Provider Outr Resulting Lab CHEMISTRY & BLOOD GA S ORDERABLES Final Result [facility] [address] [place] [address] * ESTRADIOL, ADULTS (07/11/2023 7:45 EDT) Estradiol 2,673 See Note pg/mL 07/11/2023 17:58 EDT [facility] Comment: NOTE: FEMALE REFERENCE RANGES: MENSTRUATING ? By cycle day relative to LH peak Follicular ?(-12 to -4 days) ??20-144 pg/mL Midcycle ?(-3 to +2 days) ?? 64-357 pg/mL Luteal ?(+4 t0 +12 days) ??56-214 pg/mL POSTMENOPAUSAL ?<32 pg/mL *Cross reactivity with Fulvestrant could lead to a falsely elevated estradiol result in patients treated with this drug. Blood VENOUS BLOOD / Unknown 07/11/2023 7:45 EDT 07/11/2023 17:12 EDT us Provider Outr Resulting Lab CHEMISTRY & BLOOD GA S ORDERABLES Final Result [facility] [address] [place] [address] documented in this encounter Visit Diagnoses Not on filedocumented in this encounter Care Teams Water Conservation Specialist Relationship Specialty Start Date End Date Rebekah Greco NP PCP - General 12/19/17 documented as of this encounter
--- OUTSIDE RECORDS SUMMARY | 2024-10-25 15:48 | XMS_ITS | Encounter Summary ---
Author Organization [facility] Address [address] [place] [address] Care Team Providers Care Printing Agent Name Role Phone Rebekah Greco EMISSIONS TESTING TECHNICIAN Primary Care Provider [phone] Reason for Visit * Reason Onset Date Comments Results 01/06/2018 Encounter Details Date Type Department Care Team ([facility] st Contact Info) Description 01/06/2018 Telephone [facility] Dermatology 5th Floor [facility] [address] [place], [place] [address] Viky Kirkpatrick MD [address] [place] [address] [phone] Results Social History Tobacco Use Types Packs/Day Years Used Date Smoking Tobacco: Never Smokeless Tobacco: Never Alcohol Use Standard Drinks/Week Comments No 0 (1 standard drink = 0.6 oz pur e alcohol) Comments No Sex and Gender Information Value [...] 03/28/2017 11:04 EDT documented in this encounter Miscellaneous Notes * Telephone Encounter - Virgil, Madnie - 01/11/2018 0917 EDT Labs received and scanned. Mandie Velascoke 01/11/2018 9:17 * Telephone Encounter - Ashley Zhu - 01/06/2018 1121 EDT Glenny is faxing labs from 12/19 and 01/05 * Telephone Encounter - Ashley Zhu - 01/06/2018 1108 EDT [facility] fax the patients most recent lab results documented in this encounter Plan of Treatment Not on file documented as of this encounter Visit Diagnoses Not on filedocumented in this encounter Care Teams Printing Agent Relationship Specialty Start Date End Date Rebekah Greco, GRACE PCP - General 12/19/17 documented as of this encounter
--- OUTSIDE RECORDS SUMMARY | 2024-10-25 15:48 | XMS_ITS | Encounter Summary ---
Author Organization [facility] Address [address] [place] [address] Care Team Providers Care Wireless Consultant Name Role Phone Rebekah Greco [employer]P [employer] Primary Care Provider [phone] Encounter Details Date Type Department Care Team (Late st Contact Info) Description 08/26/2021 Lab Requisition [facility] Pathology & Laboratory Medicine - [facility] [address], [place] [address] Outr Resulting Lab, Provider Social History Tobacco [...] Procedure Name Priority Date/Time Associated Diagnosis Comments ZZCOVID-19 TEST [facility] PCR Today 08/25/2021 16:40 EST COVID-19 TESTING Routine 08/25/2021 16:4 0 EST documented in this encounter Results * COVID-19 TEST [facility] PCR (08/25/2021 16:40 EST) Swab 08/25/2021 16:4 0 EST 08/26/2021 16:55 EST us Provider Outr Resulting Lab MICROBIOLOGY - GENER AL ORDERABLES Final Result [facility] [address] [place] [id number] * COVID-19 TESTING (08/25/2021 16:40 EST) COVID-19 rt-PCR Result Negative Negative 08/27/2021 13:07 EST [facility] Comment: This test has not been FDA cleared or approved. This test has been authorized by FDA under an EUA for use by authorized laboratories. This test has been authorized only for detection of nucleic acid from 2019-nCoV, not for any other viruses or pathogens. This test is only authorized for the duration of the declaration that circumstances exist justifying the authorization of emergency use of in vitro diagnostic tests for detection and/or diagnosis of 2019-nCoV under section 564(b)(1) of Act, 21 U.S.C ?? 360bbb-3(b) (1), unless the authorization is terminated or revoked sooner. Negative results do not preclude 2019-nCoV infection and should not be used as the sole basis for treatment or other patient management decisions. Negative results must be combined with clinical observations, patient history, and epidemiological information. Testing was performed using the forrest SARS-CoV-2 assay ([employer] on the Forrest 6800 System Performing Lab Forrest 6800 [facility] 08/27/2021 13:07 EST [facility] Swab 08/25/2021 16:4 0 EST 08/26/2021 16:55 EST us Provider Outr Resulting Lab MICROBIOLOGY - GENER AL ORDERABLES Final Result [facility] [address] [place] [address] documented in this encounter Visit Diagnoses Not on filedocumented in this encounter Care Teams Wireless Consultant Relationship Specialty Start Date End Date Rebekah Greco, GRACE PCP - General 12/19/17 documented as of this encounter
--- OUTSIDE RECORDS SUMMARY | 2024-10-25 15:48 | XMS_ITS | Encounter Summary ---
Author Organization [facility] Address [address] [place] [address] Care Team Providers Care Crystal Report Developer Name Role Phone Tayler Gutiérrez MD Primary Care Provider + Encounter Details Date Type Department Care Team (Late st Contact Info) Description 10/13/2017 Results Only [facility] [phone] Alan Steele, [address] [phone] Social History Tobacco Use Types Packs/Day Years [...] Procedure Name Priority Date/Time Associated Diagnosis Comments PAP TEST- RESULT ONLY Routine 10/13/2017 0:00 EST documented in this encounter Results * PAP TEST- RESULT ONLY (10/13/2017 0:00 EST) Pathology Report: CYTOPATHOLOGY REPORT Reports generated via electronic interface contain original data; however they are lacking the format of the original report. Caution should be taken when reading/interpret ing unformatted reports. Name: ? JEROME ROBLEDO ? Accession #: ? [id number] ? : ? 1985 (Age: 32) ??F ?Collect Date: ? 10/13/2017 ? Location: ? [facility] ? Receive Date: ? 10/14/2017 ? Provider: ALAN STEELE PARTY CHIEF Copy to: RIN SANZ PARTY CHIEF ? Final Report SPECIMEN ADEQUACY ? Satisfactory for Evaluation - transformation zone component present GENERAL CATEGORIZATION ? Epithelial Cell Abnormality INTERPRETATION ? Squamous Cell Abnormality - Atypical squamous cells, undetermined significance (ASC-US). EDUCATIONAL NOTES/RECOMMENDAT IONS ? [facility] recommends following ASCCP's 2012 Updated Consensus Guidelines for the Management of Abnormal Cervical Cancer Screening Tests and Cancer Precursors (JLGTD, 2013; 17(5):S1-S27). ??Consensus guidelines are available online at www.asccp.org. Last Menstrual Period: 09/27/2017 Hormonal/Contrace ptive status: Oral contraceptives Previous Gynecologic Pathology: Yes Treatment History: LEEP: age 20 Specimen/Source: ??Pap Test, Cervix/Endocervix , ThinPrep Imaging System with manual evaluation Document reviewed and electronically signed by: ? ELHAM HOLLINGSWORTH MD ? Report ??Date: 10/26/2017 14:08 HPV with Pap Test ? Date Ordered: ? 10/26/2017 ? Status: ?? Signed Out ?Date Complete: ? 10/27/2017 ? By: ??System Interface ? Date Reported: ? 10/27/2017 ? Interpretation RESULT: Negative for HPV. No E6 or E7 mRNA is detected from HPV types 16,18,31,33,35, 39,45,51,52,56,58 ,59,66, and 68 by electric truck crane operator mediated amplification. Comments Document reviewed and electronically signed by: ? System Interface ? Report date: 10/27/2017 By the signature above, the attending physician certifies that he/she has personally conducted a gross and/or microscopic examination of the described specimens and rendered or confirmed the above diagnosis. End of Report [facility] 10/13/2017 10/14/2017 us Alan Steele PARTY CHIEF PATHOLOGY ORDERABLES Final R esult Performing Organization Address City/State/[facility] Co de Phone Number [facility] [address] [place] [address] documented in this encounter Visit Diagnoses Not on filedocumented in this encounter Care Teams Crystal Report Developer Relationship Specialty Start Date End Date Tayler Gutiérrez MD [address] [place] [id number] PCP - General 09/17/14 12/18/17 documented as of this encounter
--- OUTSIDE RECORDS SUMMARY | 2024-10-25 15:48 | XMS_ITS | Encounter Summary ---
Author Organization [facility] Address [address] [place] [address] Care Team Providers Care Rn Cardiology Name Role Phone Tayler Gutiérrez MD Primary Care Provider + Encounter Details Date Type Department Care Team (Latest Contact Info) Description 02/02/2017 7:58 EDT - 02/02/2017 23:59 EDT Hospital Encounter [facility] [address] [place] [address] Ankita Stout, POLYMERIZATION KETTLE OPERATOR [address] [place] [phone] Discharge Disposition: Auto Discharge Social History Tobacco Use Types Packs/Day Years [...] 01/01/2016 10:31 EDT documented in this encounter Discharge Diagnoses Diagnosis R10.84 Generalized abdominal pain-R10.84[ICD-10-CM] documented in this encounter Medications at Time of Discharge Multivitamins with Minerals Tab Take 1 Tab by mouth daily. sertraline (ZOLOFT) 50 mg tablet Take 50 mg by mouth. documented as of this encounter Discharge Disposition Disposition Code Departure Means Destination Auto Discharge Home documented in this encounter Plan of Treatment Not on file documented as of this encounter Visit Diagnoses Not on filedocumented in this encounter Care Teams Rn Cardiology Relationship Specialty Start Date End Date Tayler Gutiérrez MD [address] [place] [id number] PCP - General 09/17/14 12/18/17 documented as of this encounter
--- OUTSIDE RECORDS SUMMARY | 2024-10-25 15:48 | XMS_ITS | Encounter Summary ---
Author Organization [facility] Address [address] [place] [address] Care Team Providers Care Civil Structural Designer Name Role Phone Rebekah Greco BELTING AND WEBBING INSPECTOR Primary Care Provider [phone] Encounter Details Date Type Department Care Team (Late st Contact Info) Description 08/04/[address] [facility] Pathology & Laboratory Medicine - [facility] [address], [place] [address] Outr Resulting Lab, Provider Social History Tobacco [...] Priority Date/Time Associated Diagnosis Comments PROGESTERONE Routine 08/04/2023 7:31 EDT ESTRADIOL, ADULTS Routine 08/04/2023 7:31 EDT [facility] Routine 08/04/2023 7:31 EDT documented in this encounter Results * FSH (08/04/2023 7:31 EDT) FSH 22.3 See Note mIU/mL 08/04/2023 19:18 EDT [facility] Blood VENOUS BLOOD / Unknown 08/04/2023 7:31 EDT 08/04/2023 17:25 EDT Narrative [facility] - 08/04/2023 19:18 EDT NOTE: Female FSH Reference Ranges (Menstruating): [...] & BLOOD GA S ORDERABLES Final Result [facility] [address] [place] [address] * PROGESTERONE (08/04/2023 7:31 EDT) Progesterone 0.7 See Table ng/mL 08/04/2023 18:07 EDT [facility] Comment: Female Reference Ranges: [...] a pathologist. Blood VENOUS BLOOD / Unknown 08/04/2023 7:31 EDT 08/04/2023 17:25 EDT us Provider Outr Resulting Lab CHEMISTRY & BLOOD GA S ORDERABLES Final Result [facility] [address] [place] [address] * ESTRADIOL, ADULTS (08/04/2023 7:31 EDT) Estradiol 16 See Note pg/mL 08/04/2023 18:06 EDT [facility] Comment: NOTE: FEMALE REFERENCE [...] this drug. Blood VENOUS BLOOD / Unknown 08/04/2023 7:31 EDT 08/04/2023 17:25 EDT us Provider Outr Resulting Lab CHEMISTRY & BLOOD GA S ORDERABLES Final Result [facility] [address] [place] [address] documented in this encounter Visit Diagnoses Not on filedocumented in this encounter Care Teams Civil Structural Designer Relationship Specialty Start Date End Date Rebekah Greco NP PCP - General 12/19/17 documented as of this encounter
--- OUTSIDE RECORDS SUMMARY | 2024-10-25 15:48 | XMS_ITS | Encounter Summary ---
Author Organization [facility] Address [address] [place] [address] Care Team Providers Care Neuropsychology Service Director Name Role Phone Tayler Gutiérrez MD Primary Care Provider + Reason for Visit * Reason Onset Date Comments Appointment Related 04/01/2017 Encounter Details Date Type Department Care Team (Late st Contact Info) Description 04/01/2017 Telephone [facility] General Surgery - [facility] [address] [place] [address] Bacilio Laguna MD [address] [facility], [address] [place] [address] Appointment Related Social History Tobacco Use Types Packs/Day Years [...] encounter Miscellaneous Notes * Telephone Encounter - Izabela Church Je - 04/01/2017 8876 EDT Patient called and wanted to cancel all appointments she is following at the [facility].Did not want to reschedule any testing. documented in this encounter Plan of Treatment Not on file documented as of this encounter Visit Diagnoses Not on filedocumented in this encounter Care Teams Neuropsychology Service Director Relationship Specialty Start Date End Date Tayler Gutiérrez MD [address] [place] [id number] PCP - General 09/17/14 12/18/17 documented as of this encounter
--- OUTSIDE RECORDS SUMMARY | 2024-10-25 15:48 | XMS_ITS | Encounter Summary ---
Author Organization [facility] Address [address] [place] [address] Care Team Providers Care Shredding Specialist Name Role Phone Rebekah Greco BREAKER UP Primary Care Provider [phone] Encounter Details Date Type Department Care Team (Late st Contact Info) Description 07/04/2023 Lab Requisition [facility] Pathology & Laboratory Medicine - [facility] [address] [place], [place] [address] Outr Resulting Lab, Provider Social History Tobacco [...] Priority Date/Time Associated Diagnosis Comments PROGESTERONE Routine 07/04/2023 7:50 EDT ESTRADIOL, ADULTS Routine 07/04/2023 7:50 EDT LH Routine 07/04/2023 7:50 EDT FSH Routine 07/04/2023 7:50 EDT documented in this encounter Results * LH (07/04/2023 7:50 EDT) Luteinizing Hormone 9.5 See Note mIU/mL 07/04/2023 17:47 EDT [facility] Comment: NOTE: Female Reference Ranges: Pre-Pubertal: ?<6.0 mIU/mL Menstruating: Follicular Phase(-12 to -4 days: ??1.9 - 12.5 mIU/mL Midcycle(-3 to +2 days): ?8.7 - 76.3 mIU/mL Luteal Phase(+4 to +12 days): ? 0.5 - 16.9 mIU/mL Post Menopausal: 15.9 - 54.0 mIU/mL Blood VENOUS BLOOD / Unknown 07/04/2023 7:50 EDT 07/04/2023 16:59 EDT us Provider Outr Resulting Lab CHEMISTRY & BLOOD GA S ORDERABLES Final Result [facility] [address] [place] [address] * FSH (07/04/2023 7:50 EDT) FSH 15.1 See Note mIU/mL 07/04/2023 17:47 EDT [facility] Blood VENOUS BLOOD / Unknown 07/04/2023 7:50 EDT 07/04/2023 16:59 EDT Narrative [facility] - 07/04/2023 17:47 EDT NOTE: Female FSH Reference Ranges (Menstruating): [...] & BLOOD GA S ORDERABLES Final Result [facility] [address] [place] [address] * PROGESTERONE (07/04/2023 7:50 EDT) [facility] Signature Progesterone 1.1 See Table ng/mL 07/04/2023 17:45 EDT [facility] Comment: Female [...] a pathologist. Blood VENOUS BLOOD / Unknown 07/04/2023 7:50 EDT 07/04/2023 16:59 EDT us Provider Outr Resulting Lab CHEMISTRY & BLOOD GA S ORDERABLES Final Result [facility] [address] [place] [address] * ESTRADIOL, ADULTS (07/04/2023 7:50 EDT) Estradiol 54 See Note pg/mL 07/04/2023 17:45 EDT [facility] Comment: NOTE: [...] this drug. Blood VENOUS BLOOD / Unknown 07/04/2023 7:50 EDT 07/04/2023 16:59 EDT us Provider Outr Resulting Lab CHEMISTRY & BLOOD GA S ORDERABLES Final Result [facility] [address] [place] [address] documented in this encounter Visit Diagnoses Not on filedocumented in this encounter Care Teams Shredding Specialist Relationship Specialty Start Date End Date Rebekah Greco, GRACE PCP - General 12/19/17 documented as of this encounter
--- OUTSIDE RECORDS SUMMARY | 2024-10-25 15:48 | XMS_ITS | Encounter Summary ---
Author Organization [facility] Address [address] [place] [address] Care Team Providers Care Bow Making Machine Operator Name Role Phone Tayler Gutiérrez MD Primary Care Provider + Encounter Details Date Type Department Care Team (Late st Contact Info) Description 03/03/2017 14:37 EDT - 03/03/2017 23:59 EDT Hospital Encounter [address] [address] Waqar Frost MD [address] [place] [address] Discharge Disposition: Home or Self Care Social History Tobacco Use Types Packs/Day Years [...] documented in this encounter Discharge Diagnoses Diagnosis R22.9 Localized swelling, mass and lump, unspecified-R22.9[ICD-10-CM] documented in this encounter Medications at Time of Discharge Multivitamins with Minerals Tab Take 1 Tab by mouth daily. sertraline (ZOLOFT) 50 mg tablet Take 50 mg by mouth. documented as of this encounter Discharge Disposition Disposition Code Departure Means Destination Home or Self Care documented in this encounter Plan of Treatment Not on file documented as of this encounter Procedures Procedure Name Priority Date/Time Associated Diagnosis Comments PATHOLOGY - SCANNED 04/06/2017 15:35 EDT documented in this encounter Results * PATHOLOGY - SCANNED (04/06/2017 15:35 EDT) 04/06/2017 15:3 5 EDT us Scan 2 Lease Buyer LAB INFO SERVICE AND SUPPOR T & PHONE RESULT Final Result documented in this encounter Visit Diagnoses Not on filedocumented in this encounter Care Teams Bow Making Machine Operator Relationship Specialty Start Date End Date Tayler Gutiérrez MD [address] [place] [id number] PCP - General 09/17/14 12/18/17 documented as of this encounter
--- OUTSIDE RECORDS SUMMARY | 2024-10-25 15:48 | XMS_ITS | Encounter Summary ---
Author Organization [facility] Address [address] [place] [address] Care Team Providers Care Irrigation Foreman Name Role Phone Rebekah Greco GEOPHYSICAL DATA TECHNICIAN Primary Care Provider [phone] Reason for Visit * Reason Onset Date Comments Labs Only 01/13/2018 Encounter Details Date Type Department Care Team ([facility] st Contact Info) Description 01/13/2018 Telephone [facility] Dermatology 3rd Floor [facility] [address] [place], [place] [address] Viky Kirkpatrick MD [address] [place] [id number] Labs Only Social History Tobacco Use Types Packs/Day Years [...] encounter Miscellaneous Notes * Telephone Encounter - Vijaya Gonzalez - 01/13/2018 1409 EDT Labs received and scanned into [facility] (possibly duplicate labs) documented in this encounter Plan of Treatment Not on file documented as of this encounter Visit Diagnoses Not on filedocumented in this encounter Care Teams Irrigation Foreman Relationship Specialty Start Date End Date Rebekah Greco NP PCP - General 12/19/17 documented as of this encounter
--- OUTSIDE RECORDS SUMMARY | 2024-10-25 15:48 | XMS_ITS | Encounter Summary ---
Author Organization [facility] Address [address] [place] [address] Care Team Providers Care Physician Coder Name Role Phone Rebekah Greco ASSEMBLER PRODUCTION LINE Primary Care Provider [phone] Encounter Details Date Type Department Care Team (Late st Contact Info) Description 08/11/2023 Lab Requisition [facility] Pathology & Laboratory Medicine - [facility] [address] [place], [place] [address] Outr Resulting Lab, Provider Social History Tobacco [...] Priority Date/Time Associated Diagnosis Comments PROGESTERONE Routine 08/11/2023 7:15 EDT ESTRADIOL, ADULTS Routine 08/11/2023 7:15 EDT LH Routine 08/11/2023 7:15 EDT documented in this encounter Results * LH (08/11/2023 7:15 EDT) Luteinizing Hormone 6.9 See Note mIU/mL 08/11/2023 20:36 EDT [facility] Comment: NOTE: Female Reference Ranges: Pre-Pubertal: ?<6.0 mIU/mL Menstruating: Follicular Phase(-12 to -4 days: ??1.9 - 12.5 mIU/mL Midcycle(-3 to +2 days): ?8.7 - 76.3 mIU/mL Luteal Phase(+4 to +12 days): ? 0.5 - 16.9 mIU/mL Post Menopausal: 15.9 - 54.0 mIU/mL Blood VENOUS BLOOD / Unknown 08/11/2023 7:15 EDT 08/11/2023 19:36 EDT us Provider Outr Resulting Lab CHEMISTRY & BLOOD GA S ORDERABLES Final Result [facility] [address] [place] [address] * PROGESTERONE (08/11/2023 7:15 EDT) Progesterone 0.3 See Table ng/mL 08/11/2023 20:10 EDT [facility] Comment: Female Reference Ranges: [...] a pathologist. Blood VENOUS BLOOD / Unknown 08/11/2023 7:15 EDT 08/11/2023 19:36 EDT us Provider Outr Resulting Lab CHEMISTRY & BLOOD GA S ORDERABLES Final Result [facility] [address] [place] [address] * ESTRADIOL, ADULTS (08/11/2023 7:15 EDT) Estradiol 1,631 See Note pg/mL 08/11/2023 20:10 EDT [facility] Comment: NOTE: FEMALE REFERENCE [...] this drug. Blood VENOUS BLOOD / Unknown 08/11/2023 7:15 EDT 08/11/2023 19:36 EDT us Provider Outr Resulting Lab CHEMISTRY & BLOOD GA S ORDERABLES Final Result [facility] [address] [place] [address] documented in this encounter Visit Diagnoses Not on filedocumented in this encounter Care Teams Physician Coder Relationship Specialty Start Date End Date Rebekah Greco NP PCP - General 12/19/17 documented as of this encounter
--- OUTSIDE RECORDS SUMMARY | 2024-10-25 15:48 | XMS_ITS | Encounter Summary ---
Author Organization [facility] Address [address] [place] [address] Care Team Providers Care Claims Counsel Name Role Phone Rebekah Greco FOOD AND BEVERAGE DIRECTOR Primary Care Provider [phone] Encounter Details Date Type Department Care Team (Late st Contact Info) Description 04/22/2023 Lab Requisition [facility] Pathology & Laboratory Medicine - [facility] [address] [place] [address] Franchesca King MD [facility] [place], [place] [id number] Encounter for other general examination; Other specified postprocedural states; Unspecified blood type, rh negative; Other specified related conditions, unspecified trimester; state, gestational carrier; Complete or unspecified spontaneous without complication Social History Tobacco Use Types Packs/Day Years [...] Procedure Name Priority Date/Time Associated Diagnosis Comments CHROMOSOME ANALYSIS Today 04/21/2023 8 :30 EDT Encounter for other general examination Other specified postprocedural states Unspecified blood type, rh negative Other specified related conditions, unspecified trimester state, gestational carrier Complete or unspecified spontaneous without complication documented in this encounter Results * CHROMOSOME ANALYSIS (04/21/2023 8:30 EDT) CYTOGENETICS INTERPRETATION Products of conception with 2 cell lines. The first cell line showed an abnormal male karyotype with additional copies of chromosomes Y and 7 in 10 cells. The remaining 10 cells showed a normal female karyotype. 05/17/2023 15:05 [facility] Comment The normal female cells are likely maternal in origin. Genetic counseling is recommended. 05/17/2023 15:05 [facility] Attestation By the signature below, the attending physician certifies that they have 1) personally conducted a gross and/or microscopic examination of the described specimen(s), and/or personally interpreted the results of laboratory testing of the described specimen(s), and 2) personally rendered or confirmed the above diagnosis. 05/17/2023 15:05 [facility] at 1505 Clinical History Embryonic Demise 8 weeks, 5 days 05/17/2023 15:05 [facility] Testing Performed G-banded karyotype 05/17/2023 15:05 [facility] Report Cells counted: 20 Cells analyzed: 20 Cells karyotyped: 20 Band resolution: 400 05/17/2023 15:05 [facility] Karyotype 48,XYY,+7[10]/ 46,XX[10] 05/17/2023 15:05 [facility] Scanned Images 05/17/2023 15:05 EDT [facility] Tissue PRODUCTS OF CONCEPTION TISSUE SPECIMEN / Unknown 04/21/2023 8:30 EDT 04/22/2023 9:42 EDT us Franchesca King MD PATHOLOGY ORDERABLES Final Res ult [facility] [address] [place] [address] documented in this encounter Visit Diagnoses Diagnosis Encounter for other general examination Other specified postprocedural states Unspecified blood type, rh negative Other specified related conditions, unspecified trimester state, gestational carrier Complete or unspecified spontaneous without complication documented in this encounter Care Teams Claims Counsel Relationship Specialty Start Date End Date Rebekah Greco NP PCP - General 12/19/17 documented as of this encounter
--- OUTSIDE RECORDS SUMMARY | 2024-10-25 15:48 | XMS_ITS | Encounter Summary ---
Author Organization [facility] Address [address] [place] [address] Care Team Providers Care Bulk Cooler Installer Name Role Phone Rebekah Greco FORENSIC SPECIALIST Primary Care Provider [phone] Encounter Details Date Type Department Care Team (Late st Contact Info) Description 08/18/2021 Lab Requisition [facility] Pathology & Laboratory Medicine - [facility] [address] [place], [place] [id number] Outr Resulting Lab, Provider Social History Tobacco [...] Procedure Name Priority Date/Time Associated Diagnosis Comments SYPHILIS SEROLOGY Routine 08/18/2021 7:20 EDT RUBELLA IGG ANTIBODY Routine 08/18/2021 7:20 EDT VARICELLA IGG ANTIBODY Routine 08/18/2021 7:20 EDT documented in this encounter Results * SYPHILIS SEROLOGY (08/18/2021 7:20 EDT) Syphilis Serology Negative Negative 08/19/2021 11:04 EDT [facility] Blood VENOUS BLOOD / Unknown 08/18/2021 7:20 EDT 08/18/2021 16:26 EDT us Provider Outr Resulting Lab IMMUNOLOGY AND SEROL OGY ORDERABLES Final Result Performing Organization Address [facility] Co de Phone Number [facility] [address] [place] [address] * VARICELLA IGG ANTIBODY (08/18/2021 7:20 EDT) Varicella IgG Ab Positive See Note 08/19/2021 10:54 EDT [facility] Comment:Presence of detectab le Varicella Zoster virus IgG antibodies. Blood VENOUS BLOOD / Unknown 08/18/2021 7:20 EDT 08/18/2021 16:26 EDT us Provider Outr Resulting Lab IMMUNOLOGY AND SEROL OGY ORDERABLES Final Result [facility] [address] [place] [address] * RUBELLA IGG ANTIBODY (08/18/2021 7:20 EDT) Rubella IgG Ab Positive See Note 08/19/2021 11:01 EDT [facility] Comment:Positive for IgG ant ibodies to Rubella virus. Blood VENOUS BLOOD / Unknown 08/18/2021 7:20 EDT 08/18/2021 16:26 EDT us Provider Outr Resulting Lab CHEMISTRY & BLOOD GA S ORDERABLES Final Result [facility] [address] [place] [address] documented in this encounter Visit Diagnoses Not on filedocumented in this encounter Care Teams Bulk Cooler Installer Relationship Specialty Start Date End Date Rebekah Greco, GRACE PCP - General 12/19/17 documented as of this encounter
--- OUTSIDE RECORDS SUMMARY | 2024-10-25 15:48 | XMS_ITS | Encounter Summary ---
Author Organization [facility] Address [address] [place] [address] Care Team Providers Care Dairy Farmer Name Role Phone Tayler Gutiérrez MD Primary Care Provider + Encounter Details Date Type Department Care Team (Late st Contact Info) Description 01/01/2016 Results Only [facility] Rheumatology & Immunology - [address] [id number] Kumar Hester Chi, MD [address] [place] [address], [address] [place] [address] Social History Tobacco Use Types Packs/Day Years [...] Procedure Name Priority Date/Time Associated Diagnosis Comments UA REFLEX Routine 01/01/2016 11:31 EDT documented in this encounter Results * UA REFLEX (01/01/2016 11:31 EDT) UA Billing Microscopic not indicated. 01/01/2016 12:03 EDT [facility] URINE / Unknown 01/01/2016 1 1:31 EDT 01/01/2016 11:50 EDT us DeisyKumar Hester MD URINALYSIS ORDERABLES Final Resu lt [facility] [address] [place] [address] documented in this encounter Visit Diagnoses Not on filedocumented in this encounter Care Teams Dairy Farmer Relationship Specialty Start Date End Date Tayler Gutiérrez MD [address] [place] [id number] PCP - General 09/17/14 12/18/17 documented as of this encounter
--- OUTSIDE RECORDS SUMMARY | 2024-10-25 15:48 | XMS_ITS | Encounter Summary ---
Author Organization [facility] Address [address] [place] [address] Care Team Providers Care Bag Loader Machine Operator Name Role Phone Rebekah Greco LABEL REWINDER Primary Care Provider [phone] Encounter Details Date Type Department Care Team ([facility] st Contact Info) Description 12/24/2018 Results Only [facility] [phone] Maria Antonia Nieves MD [address] [place] [address] [place] [id number] Social History Tobacco Use Types Packs/Day Years [...] Procedure Name Priority Date/Time Associated Diagnosis Comments SCREEN TEST Routine 12/24/2018 12: 31 EDT documented in this encounter Results * SCREEN TEST (12/24/2018 12:31 EDT) Screen Test NEGATIVE [facility] 12/24/2018 12:3 1 EDT us Maria Antonia Nieves MD BLOOD BANK TESTS Final Result Performing Organization Address City/State/[facility] Co de Phone Number [facility] [address] [place] [address] documented in this encounter Visit Diagnoses Not on filedocumented in this encounter Care Teams Bag Loader Machine Operator Relationship Specialty Start Date End Date Rebekah Greco NP PCP - General 12/19/17 documented as of this encounter
--- OUTSIDE RECORDS SUMMARY | 2024-10-25 15:48 | XMS_ITS | Encounter Summary ---
Author Organization [facility] Address [address] [place] [address] Care Team Providers Care Teaching Assistant Name Role Phone Tayler Gutiérrez MD Primary Care Provider + Encounter Details Date Type Department Care Team (Late st Contact Info) Description 02/02/2017 Results Only Imaging [facility] [phone] Ankita Stout, NICK SETTER [address] [place] [phone] Social History Tobacco Use Types Packs/Day Years [...] Name Priority Date/Time Associated Diagnosis Comments NM CCK HEPATOBILIARY SCAN 02/02/2017 11:51 EDT documented in this encounter Results * NM CCK HEPATOBILIARY SCAN (02/02/2017 11:51 EDT) Anatomical Region Laterality Modality Other 02/02/2017 11:5 1 EDT 02/02/2017 16:19 EDT Narrative 02/02/2017 16:19 EDT NM CCK HEPATOBILIARY SCAN ??02/02/2017 11:51 AM Signs and Symptoms/Comments: ?? Diffuse Abdominal pain. Technique: ?? After the IV injection of 3.1 mCi Tc-99m mebrofenin, standard hepatobiliary images were obtained. ??After gallbladder visualization, 1.1 ??uG CCK ??was infused via IV, and the gallbladder ejection fraction was calculated. Comparison: None available. Findings: The liver, biliary ductal system, gallbladder and small bowel appear normal. Excretion into the biliary tree is seen at 4 minutes. The gallbladder ejection fraction is 85%, (lower limit of normal is 35%). There is delayed biliary to duodenal transit however, at approximately 2 hours post initial injection, the small bowel is visualized. 10 minutes into the CCK infusion, the patient experienced 2 out of 10 pain similar to her normal postprandial symptoms. At 25 minutes pain increased to 4-5 out of 10 and at 52 minutes pain was 5 out of 10. Impression: 1. ??Normal gallbladder ejection fraction. 2. ??Delayed biliary to duodenal transit. I have personally reviewed the images and the above interpretation and agree with the findings. Procedure Note Osmany Mast MD - 02/02/2017 NM CCK HEPATOBILIARY SCAN 02/02/2017 11:51 AM Signs and Symptoms/Comments: Diffuse Abdominal pain. Technique: After the IV injection of 3.1 mCi Tc-99m mebrofenin, standard hepatobiliary images were obtained. After gallbladder visualization, 1.1 uG CCK was infused via IV, and the gallbladder ejection fraction was calculated. Comparison: None available. Findings: The liver, biliary ductal system, gallbladder and small bowel appear normal. Excretion into the biliary tree is seen at 4 minutes. The gallbladder ejection fraction is 85%, (lower limit of normal is 35%). There is delayed biliary to duodenal transit however, at approximately 2 hours post initial injection, the small bowel is visualized. 10 minutes into the CCK infusion, the patient experienced 2 out of 10 pain similar to her normal postprandial symptoms. At 25 minutes pain increased to 4-5 out of 10 and at 52 minutes pain was 5 out of 10. Impression: 1. Normal gallbladder ejection fraction. 2. Delayed biliary to duodenal transit. I have personally reviewed the images and the above interpretation and agree with the findings. us Ankita Stout NICK SETTER IM NM ORDERABLES Final Result documented in this encounter Visit Diagnoses Not on filedocumented in this encounter Care Teams Teaching Assistant Relationship Specialty Start Date End Date Tayler Gutiérrez MD [address] [place] [id number] PCP - General 09/17/14 12/18/17 documented as of this encounter
--- OUTSIDE RECORDS SUMMARY | 2024-10-25 15:48 | XMS_ITS | Encounter Summary ---
Author Organization [facility] Address [address] [place] [address] Care Team Providers Care Assistant Professor Of Marine Biology Name Role Phone Rebekah Greco CORPORATE COMMUNICATIONS INTERN Primary Care Provider [phone] Encounter Details Date Type Department Care Team (Late st Contact Info) Description 07/11/2020 Lab Requisition [facility] Pathology & Laboratory Medicine - [address] [address] Cadence Steele, [facility] [address] [place] [phone] Encounter for other general examination Social History Tobacco Use Types Packs/Day Years [...] Name Priority Date/Time Associated Diagnosis Comments PAP TEST Today 07/10/2020 13:00 EDT Encounter for other general examination HPV DNA DETECTION WITH GENOTYPING, PCR Today 07/10/2020 13:00 EDT Encounter for other general examination documented in this encounter Results * HUMAN PAPILLOMAVIRUS (HPV) DETECTION-HIGH RISK TYPES (07/10/2020 13:00 EDT) HPV other High Risk types, PCR Negative Negative 07/18/2020 15:52 EDT [facility] Comment:No E6 or E7 mRNA is detected from HPV types 16,18,31,33,35,39,45,51,52,56,58,59,66, and 68 by realty loan specialist mediated amplification. Papanicolaou smear specimen (specimen) CERVIX UTERI STRUCTURE / Unknown 07/10/2020 13:00 EDT 07/16/2020 16:18 EDT us Cadence Steele QUILL CLEANING MACHINE OPERATOR MICROBIOLOGY - GENERAL ORDER KSENIA Final Result [facility] [address] [place] [address] * PAP TEST (07/10/2020 13:00 EDT) Specimens A. Cervix and/or Endocervix , ThinPrep Imaging System with Manual Evaluation 07/18/2020 15:52 EDT [facility] Specimen Adequacy Satisfactory for Evaluation - transformation zone component present 07/18/2020 15:52 EDT [facility] General Categorization Negative for intraepithelial lesion or malignancy 07/18/2020 15:52 EDT [facility] Attestation . 07/18/2020 15:52 T [facility] at 1552 Clinical History See below 07/18/20 15:52 EDT [facility] HPV The result for the Human Papillomavirus (HPV) Detection-High Risk Types is Negative. No E6 or E7 mRNA is detected from HPV types 16,18,31,33,35,39 ,45,51,52,56,58,5 9,66, and 68 by realty loan specialist mediated amplification.Bren ting was performed on specimen [id number] and was resulted on 07/18/2020 1523 EDT by ISATU, LAB INSTRUMENT RESULTS IN 07/18/2020 15:52 EDT [facility] Performing Lab [facility] 07/18/2020 15:52 EDT [facility] Scanned Images 07/18/2020 15:52 EDT [facility] Papanicolaou smear specimen (specimen) CERVIX UTERI STRUCTURE / Unknown 07/10/2020 13:00 EDT 07/11/2020 13:34 EDT us Cadence Steele QUILL CLEANING MACHINE OPERATOR PATHOLOGY ORDERABLES Final R esult [facility] [address] [place] [address] documented in this encounter Visit Diagnoses Diagnosis Encounter for other general examination documented in this encounter Care Teams Assistant Professor Of Marine Biology Relationship Specialty Start Date End Date Rebekah Greco NP PCP - General 12/19/17 documented as of this encounter
--- OUTSIDE RECORDS SUMMARY | 2024-10-25 15:48 | XMS_ITS | Encounter Summary ---
Author Organization [facility] Address [address] [place] [address] Care Team Providers Care Childcare Attendant Name Role Phone Rebekah Greco IT SECURITY SPECIALIST Primary Care Provider Encounter Details Date Type Department Care Team (Late st Contact Info) Description 08/26/2023 Lab Requisition [facility] Pathology & Laboratory Medicine - [facility] [address] [place], [place] [id number] Outr Resulting Lab, Provider Social History Tobacco [...] Priority Date/Time Associated Diagnosis Comments PROGESTERONE Routine 08/26/2023 7:22 EST documented in this encounter Results * PROGESTERONE (08/26/2023 7:22 EST) Progesterone 52.4 See Table ng/mL 08/26/2023 19:34 EST [facility] Comment: Female Reference Ranges: [...] a pathologist. Blood VENOUS BLOOD / Unknown 08/26/2023 7:22 EST 08/26/2023 18:01 EST us Provider Outr Resulting Lab CHEMISTRY & BLOOD GA S ORDERABLES Final Result [facility] [address] [place] [address] documented in this encounter Visit Diagnoses Not on filedocumented in this encounter Care Teams Childcare Attendant Relationship Specialty Start Date End Date Rebekah Greco NP PCP - General 12/19/17 documented as of this encounter
--- OUTSIDE RECORDS SUMMARY | 2024-10-25 15:48 | XMS_ITS | Encounter Summary ---
Author Organization [facility] Address [address] [place] [address] Care Team Providers Care Log Sorting Supervisor Name Role Phone Rebekah Greco BOWLING BALL MARKER Primary Care Provider [phone] Reason for Visit * Reason Onset Date Comments Labs Only 01/11/2018 Encounter Details Date Type Department Care Team ([facility] st Contact Info) Description 01/11/2018 Telephone [facility] Dermatology 3rd Floor [facility] [address] [place], [place] [address] Viky Kirkpatrick MD [address] [place] [phone] Labs Only Social History Tobacco Use Types [...] Telephone Encounter - Vijaya Gonzalez - 01/13/2018 0901 EDT Additional labs received and scanned into [facility]. * Telephone Encounter - Ashley Zhu - 01/12/2018 1240 EDT LM for Glenny. We do not need additional labs. We had ordered zinc and glucagon because we were unaware she had them done previously. * Telephone Encounter - Tamela Helm - 01/12/2018 1137 EDT Patient's PCP called, patient was confused about whether she needed to have more labs done. Glenny confirmed that patient has had the zinc and glucagon labs and is faxing all labs to our office. * Telephone Encounter - Valeri Lopes - 01/11/2018 1737 EDT Labs scanned * Telephone Encounter - Ingrid Nelson - 01/11/2018 1624 EDT Primary office called back and confirmed zinc labs and are faxing them to our office. Office is unsure if patient had glucagon labs done but will include in fax if they find them. Ingrid Nelson 01/11/2018 16:25 * Telephone Encounter - Ashley Zhu - 01/11/2018 1606 EDT LM with patient regarding her labs. According to our records she has had CMP and CBC/diff. Zinc and glucagon are different labs and Dr. Kirkpatrick would like to have them drawn. I called the primary to ensure these have not been done yet. I will notify the patient when I hear from her primary * Telephone Encounter - Ashley Zhu - 01/11/2018 1431 EDT LM for patient. We don't have any recent lab results. The message I left previously was to notify her that I faxed the orders to [facility] and she is to go there and have her labs drawn. LM for patient with this information again and asked her to call back with any questions * Telephone Encounter - Ayde Núñez - 01/11/2018 1058 EDT Patient returned call. Please leave a message. * Telephone Encounter - Ayde Núñez - 01/11/2018 0942 EDT Patient returning call. Looking for lab results. Please call. documented in this encounter Plan of Treatment Not on file documented as of this encounter Visit Diagnoses Not on filedocumented in this encounter Care Teams Log Sorting Supervisor Relationship Specialty Start Date End Date Rebekah Greco NP PCP - General 12/19/17 documented as of this encounter
--- OUTSIDE RECORDS SUMMARY | 2024-10-25 15:48 | XMS_ITS | Encounter Summary ---
Author Organization [facility] Address [address] [place] [address] Care Team Providers Care Reservation Manager Name Role Phone Rebekah Greco NET SQL DEVELOPER Primary Care Provider [phone] Encounter Details Date Type Department Care Team (Late st Contact Info) Description 10/01/2022 Lab Requisition [facility] Pathology & Laboratory Medicine - [facility] [address] [place], [place] [id number] Outr Resulting Lab, Provider Social History Tobacco [...] Priority Date/Time Associated Diagnosis Comments [facility]OVID[facility]19 TEST [facility] Today 10/01/2022 16:45 EST COVID-19 TESTING Routine 10/01/2022 16:4 5 EST documented in this encounter Results * COVID-19 TEST [facility] PCR (10/01/2022 16:45 EST) Swab ENTIRE NASOPHARYNX / Unknown 10/01/2022 16:45 EST 10/02/2022 22:17 EST us Provider Outr Resulting Lab MICROBIOLOGY - GENER AL ORDERABLES Final Result [facility] [address] [place] [address] * COVID-19 TESTING (10/01/2022 16:45 EST) COVID-19 rt-PCR Result Negative Negative 10/03/2022 1:42 EST [facility] Comment: This test has not [...] clinical observations, patient history, and epidemiological information. Performed on the [employer] instrument Performing Lab [place] [facility] 10/03/2022 1:42 EST [facility] Swab ENTIRE NASOPHARYNX / Unknown 10/01/2022 16:45 EST 10/02/2022 22:17 EST us Provider Outr Resulting Lab MICROBIOLOGY - GENER AL ORDERABLES Final Result [facility] [address] [place] [address] documented in this encounter Visit Diagnoses Not on filedocumented in this encounter Care Teams Reservation Manager Relationship Specialty Start Date End Date Rebekah Greco, NET SQL DEVELOPER PCP - General 12/19/17 documented as of this encounter
--- OUTSIDE RECORDS SUMMARY | 2024-10-25 15:48 | XMS_ITS | Encounter Summary ---
Author Organization [facility] Address [address] [place] [address] Care Team Providers Care Salesperson Hearing Aids Name Role Phone Rebekah rGeco HANSARD REPORTER Primary Care Provider [phone] Encounter Details Date Type Department Care Team (Late st Contact Info) Description 08/10/2022 Lab Requisition [facility] Pathology & Laboratory Medicine - [facility] [address] [place] [address] Malu Raymundo, FLOOR SCRAPER [address] [place] [phone] Encounter for other general examination Social [...] Date/Time Associated Diagnosis Comments PAP TEST Today 08/09/2022 15:45 EDT Encounter for other general examination HPV DNA DETECTION WITH GENOTYPING, PCR Today 08/09/2022 15:45 EDT Encounter for other general examination documented in this encounter Results * HUMAN PAPILLOMAVIRUS (HPV) DETECTION-HIGH RISK TYPES (08/09/2022 15:45 EDT) HPV other High Risk types, PCR Negative Negative 08/23/2022 23:12 [facility] Comment:No E6 or E7 mRNA is detected from HPV types 16,18,31,33,35,39,45,51,52,56,58,59,66, and 68 by machine sizer mediated amplification. Papanicolaou smear specimen (specimen) CERVIX UTERI STRUCTURE / Unknown 08/09/2022 15:45 EDT 08/20/2022 14:12 EDT us Malu Raymundo APRN MICROBIOLOGY - GENERAL OR DERABLES Final Result [facility] [address] [place] [address] * PAP TEST (08/09/2022 15:45 EDT) Specimens A. Cervix and/or Endocervix , ThinPrep Imaging System with Manual Evaluation 08/23/2022 23:12 [facility] Specimen Adequacy Satisfactory for Evaluation - transformation zone component present 08/23/2022 23:12 [facility] General Categorization Epithelial Cell Abnormality 08/23/2022 23:12 [facility] Descriptive Diagnosis Squamous Cell Abnormality - Atypical squamous cells, undetermined significance (ASC-US). 08/23/2022 23:12 [facility] Educational Comments [facility] recommends following the ASCCP's management guidelines which may be found at www.asccp.org 08/23/2022 23:12 [facility] Attestation By the signature below, the attending physician certifies that they have personally conducted a gross and/or microscopic examination of the described specimens and rendered or confirmed the above diagnosis. 08/23/2022 23:12 [facility] at 2312 Clinical History See below 08/23/20 23:12 [facility] HPV The result for the Human Papillomavirus (HPV) Detection-High Risk Types is Negative. No E6 or E7 mRNA is detected from HPV types 16,18,31,33,35,3 9,45,51,52,56,58 ,59,66, and 68 by machine sizer mediated amplification.Te sting was performed on specimen [id number] and was resulted on 08/23/2022 1932 EST by ISATU, LAB INSTRUMENT RESULTS IN 08/23/2022 23:12 [facility] Performing Lab [facility] 08/23/2022 23:12 [facility] Scanned Images 08/23/2022 23:12 [facility] Papanicolaou smear specimen (specimen) CERVIX UTERI STRUCTURE / Unknown 08/09/2022 15:45 EDT 08/10/2022 11:17 EDT us Malu Raymundo FLOOR SCRAPER PATHOLOGY ORDERABLES Irene l Result [facility] [address] [place] [address] documented in this encounter Visit Diagnoses Diagnosis Encounter for other general examination documented in this encounter Care Teams Salesperson Hearing Aids Relationship Specialty Start Date End Date Rebekah Greco NP PCP - General 12/19/17 documented as of this encounter
--- OUTSIDE RECORDS SUMMARY | 2024-10-25 15:48 | XMS_ITS | Encounter Summary ---
Author Organization [facility] Address [address] [place] [address] Care Team Providers Care Electronic Publications Specialist Name Role Phone Rebekah Greco EMBOSSING TOOL SETTER Primary Care Provider [phone] Encounter Details Date Type Department Care Team (Late st Contact Info) Description 06/23/2021 Lab Requisition [facility] Pathology & Laboratory Medicine - [facility] [address] [place], [place] [address] Outr Resulting Lab, Provider Social History Tobacco [...] Procedure Name Priority Date/Time Associated Diagnosis Comments HEPATITIS C AB W REFLEX TO HCV RNA BY PCR Routine 06/23/2021 7:09 EDT HEPATITIS B SURFACE ANTIGEN Routine 06/23/2021 7:09 EDT documented in this encounter Results * HEPATITIS B SURFACE ANTIGEN (06/23/2021 7:09 EDT) Hep B Surface Ag Negative Negative 06/23/2021 17:42 EDT [facility] Blood VENOUS BLOOD / Unknown 06/23/2021 7:09 EDT 06/23/2021 16:02 EDT us Provider Outr Resulting Lab CHEMISTRY & BLOOD GA S ORDERABLES Final Result Performing Organization Address [facility] Co de Phone Number [facility] [address] [place] [address] * HEPATITIS C AB W REFLEX TO HCV RNA BY PCR (06/23/2021 7:09 EDT) Hep C Antibody Negative Negative 06/23/2021 18:14 EDT [facility] Blood VENOUS BLOOD / Unknown 06/23/2021 7:09 EDT 06/23/2021 16:02 EDT us Provider Outr Resulting Lab CHEMISTRY & BLOOD GA S ORDERABLES Final Result Performing Organization Address City/[facility]/ZIP Co de Phone Number [facility] [address] [place] [address] documented in this encounter Visit Diagnoses Not on filedocumented in this encounter Care Teams Electronic Publications Specialist Relationship Specialty Start Date End Date Rebekah Greco NP PCP - General 12/19/17 documented as of this encounter
--- OUTSIDE RECORDS SUMMARY | 2024-10-25 15:48 | XMS_ITS | Encounter Summary ---
Author Organization [facility] Address [address] [place] [address] Care Team Providers Care Re Etcher Name Role Phone Rebekah Greco MIGRATION SPECIALIST Primary Care Provider [phone] Reason for Visit * Reason Comments New Patient Visit body rash x4 days farheen t has has this a few years again * Consult (3 - 10 Business Days) - Closed Specialty Diagnoses / Procedures Referred By Isra gage Referred To Contact Dermatology Diagnoses Rash and other nonspecific skin eruption eRbekah Greoc, MIGRATION SPECIALIST Phone: tel: fax: [facility] Dermatology 5th [address] [address] Phone: tel: fax: Referral ID Status Reason Start Date Expiration Date Visits Re quested Visits Authorized [id number] Closed 1 1 Encounter Details Date Type Department Care Team (Late st Contact Info) Description 12/20/2017 16:00 EST Office Visit [facility] Dermatology 3rd Floor [address] [id number] Jyoti Edmondson MD [address] [place] [address] [phone] Rash (Primary Dx) Discharge Disposition: Auto Discharge Social History Tobacco [...] 03/28/2017 11:04 EDT documented in this encounter Discharge Diagnoses Diagnosis R21 Rash and other nonspecific skin eruption-R21[ICD-10-CM] documented in this encounter Ordered Prescriptions Prescription Sig Dispense Quantity Refills Last Filled Start Date End Date triamcinolone (KENALOG) 0.1 % creamIndications:R dylan Apply topically to affected area 2 times daily. Do not apply to face, armpit or groin. 454 g 3 12/20/2017 documented in this encounter Discharge Disposition Disposition Code Departure Means Destination Auto Discharge documented in this encounter Progress Notes * Ashley Zhu - 01/20/2018 0937 EDT I have reviewed the labs/results. No action needed. * Jyoti Edmondson - 01/02/2018 1011 EDT Could you please track down labs that Jerome had at [facility] recently? I will be adding a zinc, glucoseand glucagon to the order if not drawn. She is aware of her biopsy report showing eczema. Jyoti Edmondson MD 01/02/2018 * Liana Hudson - 12/20/2017 1600 EST Review of Systems Constitutional: Negative for fatigue, fever and unexpected weight change. HENT: Negative for mouth sores. Eyes: Negative for pain. Respiratory: Negative for cough and shortness of breath. Cardiovascular: Negative for chest pain and palpitations. Gastrointestinal: Negative for abdominal pain, blood in stool, constipation, diarrhea, nausea and vomiting. Genitourinary: Negative for dysuria, frequency and hematuria. Musculoskeletal: Negative for myalgias, joint swelling, arthralgias and muscle stiffness in the morning. Skin: Negative for rash. Neurological: Negative for numbness and headaches. Endo/Heme/Allergies: Does not bruise/bleed easily. Psychiatric/Behavioral: Negative for sleep disturbance. The patient is not nervous/anxious. Liana Hudson 12/20/2017 15:48 * Ricky Christian MD - 12/20/2017 1600 EST Dermatology Outpatient Visit Note Chief Complaint Patient presents with ??? New Patient Visit body rash x4 days but has has this a few years again Dermatologic History: - Rash NOS: responsive to gluten-free diet Last Dermatology office visit: new patient SUBJECTIVE Ms. Robledo is a 32 y.o. female who presents for new evaluation for rash. Patient has had a rash on her trunk and extremities for the past 4 days. It is very itchy and spreading. She had a similar rash 5 years ago which was worked up by [facility]. Nothing helped except for prednisone PO and going gluten free. She remains gluten free but the rash has returned. Patient states that she has GI issues with frequent upset stomach and diarrhea. This is being worked up by GI at [facility]. She has not tried anything other than topical benadryl for this rash. She is otherwise in her usual state of health. No new medications or recent travel. For full Medical, Surgical, Family, and Social histories, please see the History section of this encounter in the electronic chart which I have personally reviewed. For Review of Systems, Medications and Allergies, please see those sections of this encounter in the electronic chart which I have also reviewed. She has a current medication list which includes the following prescription(s): lorazepam, multivitamins with minerals, omeprazole, sertraline, trazodone, and UNABLE TO FIND. She has No Known Allergies. OBJECTIVE VS: There were no vitals taken for this visit. Ms. Robledo is healthy female sitting on the examination table with a normal affect. She is alert and oriented to person, place and time. She has Del Toro type II skin. Cutaneous full body examination including the hair, scalp, face, eyelids, lips, neck, chest, back, abdomen, all four extremities, hands, feet, digits and nails was performed.The examination was normal with the addition of the following comments: There were no lesions suspicious for malignancy. - Trunk and extremities: scattered skin colored papules on erythematous base with overlying excoriation with concentration in antecubital fossa, back, upper chest and posterior knee ASSESSMENT and PLAN 1. Rash NOS: favor DH vs eczema vs contact vs drug vs other - Recommended biopsy of the rash given the unclear etiology. The patient agrees with this plan. Advised the patient on the risks of biopsy, including pain, infection, bleeding and scar formation. Will call with biopsy results when available, and make further treatment recommendations based on the results. - Recommend triamcinolone cream BID to active areas. Prescription written. She will f/u as planned or in the interim should problems arise. PUNCH BIOPSY PATIENT : Jerome Robledo : MRN: [id number] SURGEON: MD Jyoti Roldan MD The indication, risks, benefits and alternatives to this procedure were discussed in detail in withthe patient and all questions were answered. Informed consent was obtained in writing. PROCEDURE NOTE: Specimen A Procedure: Punch Biopsy Site: Back Anesthesia: 1% lidocaine with epinephrine 1:100,000 local infiltration Prep: Alcohol The lesion was prepped and anesthetized with local anesthesia. The specimen was removed with a 4.0 mm punch trephine. Hemostasis was achieved with pressure. The wound was closed with 4.0 Prolene (polypropylene) suture. A sterile dressing was applied over petrolatum ointment. Verbal and written wound care instructions were given. The specimen was submitted to pathology for histological evaluation. Ricky Christian MD 12/20/2017 15:49 Attestation Statement: I saw and examined the patient with the resident/fellow. I agree with the findings and plan of care documented in the resident's/fellow's note. I was present for the entire procedure. Jyoti Edmondson MD 01/02/2018 documented in this encounter Plan of Treatment Scheduled Orders Name Type Priority Associated Diagnoses Orde r Schedule SURGICAL PATHOLOGY- ORDER ONLY Pathology Routine Rash Ordered: 12/20/2017 documented as of this encounter Procedures Procedure Name Priority Date/Time Associated Diagnosis Comments SURGICAL PATHOLOGY Routine 12/20/2017 19 :11 EST documented in this encounter Results * SURGICAL PATHOLOGY (12/20/2017 19:11 EST) Pathology Report: SURGICAL PATHOLOGY REPORT Reports generated via electronic interface contain original data; however they are lacking the format of the original report. Caution should be taken when reading/interpreting unformatted reports. Name: ? JEROME ROBLEDO ? Accession #: ? [id number] ? : ? 1985 (Age: 32) ??F ?Collect Date: ? 12/20/2017 ? Location: ? [facility] ? Receive Date: ? 12/20/2017 ? Provider: JYOTI EDMONDSON MD Copy to: RICKY CHRISTIAN MD ? Final Pathologic Diagnosis: SKIN OF BACK, PUNCH BIOPSY: - Sparse superficial perivascular dermatitis with mild epidermal spongiosis. See comment. Comment: Numerous sections of the biopsy were reviewed. ??The biopsy shows subtle features of focal epidermal spongiosis and a patchy superficial dermal infiltrate that includes eosinophils. ??The features are primarily those of eczema. ??A drug-related eruption cannot be entirely excluded but is somewhat less likely given the character of the epidermal changes. ??No papillary dermal neutrophilic microabscesses are identified to suggest dermatitis herpetiformis. ??A separate biopsy was submitted for direct immunofluorescence analysis, the results of which will be reported separately. ??(Dr. Oliva)/wade ? Microscopic Description: Sections consist of a punch biopsy of skin to the deep reticular dermis. ??The stratum corneum consists of basketweave orthokeratin. ??The epidermis is of relatively normal thickness and rete architecture. ??On some of the deeper sections, there are discrete foci of spongiosis with small collections of lymphomononuclear cells within the epidermis. ??The dermis has a patchy, sparse superficial perivascular infiltrate. ??The infiltrate is composed primarily of small lymphocytes although a rare eosinophil is noted. ??Numerous deeper sections have similar features. ??(Dr. Oliva)/wade ? Document reviewed and electronically signed by: ? AYDE OLIVA MD ? Report ??Date: 12/23/2017 16:05 By the signature above, the attending physician certifies that he/she has personally conducted a gross and/or microscopic examination of the described specimens and rendered or confirmed the above diagnosis. Clinical History: Trunk and extremities pruritic erythematous papules/vesicles; R/O DH vs eczema vs drug vs other; clinical diagnosis code: ??R21 ? Gross Description: ? Received in formalin labelled with proper patient identification (initials C, J) and back is a punch biopsy of pale romero-white and smooth skin (0.3 cm in diameter and 0.5 cm in thickness). Submitted intact in 1. ??A separate portion of tissue is received for direct immunofluorescence. ?? STARR Meza (ASCP) 12/21/2017 7:56 AM ? IMMUNOFLUORESCENCE ? Date Ordered: ? 12/20/2017 ? Status: ?? Signed Out ?Date Complete: ? 12/23/2017 ? By: ??Yamile Reddy ? Date Reported: ? 12/23/2017 ? Interpretation ? SKIN OF BACK, PUNCH BIOPSY: - Negative immunofluorescence. Description The specimen consists of a skin biopsy with intact dermis and epidermis. ??Frozen sections are exposed to fluorescein-labelled antibodies directed against IgG, IgM, IgA, C3, and polyvalent immunoglobulins (IgG, IgM, and IgA). ??No specific fluorescence is seen in any location. NOTE: ??One or more of the reagents used in immunofluorescence testing in this case may not have been cleared or approved by the U.S. Food and Drug Administration (FDA). ??The FDA has determined that such clearance or approval is not necessary. ??These tests are used for clinical purposes. ??They should not be regarded as investigational or for research. ??These reagents' performance characteristics have been determined by the [facility]. ??The positive and negative controls worked appropriately. ??This laboratory is certified under the Clinical Laboratory Improvement Amendments of 1988 (CLIA-88) as qualified to perform high complexity clinical laboratory testing. ?? Document reviewed and electronically signed by: ? AYDE OLIVA MD ? Report date: 12/23/2017 By the signature above, the attending physician certifies that he/she has personally conducted a gross and/or microscopic examination of the described specimens and rendered or confirmed the above diagnosis. End of Report [facility] 12/20/2017 19:1 1 EST 12/20/2017 19:11 EST us Jyoti Edmondson MD PATHOLOGY ORDERABLES Final Re sult [facility] [address] [place] [address] documented in this encounter Visit Diagnoses Diagnosis Rash- Primary Rash and other nonspecific skin eruption documented in this encounter Care Teams Re Etcher Relationship Specialty Start Date End Date Rebekah Greco NP PCP - General 12/19/17 documented as of this encounter
--- OUTSIDE RECORDS SUMMARY | 2024-10-25 15:48 | XMS_ITS | Encounter Summary ---
Author Organization [facility] Address [address] [place] [address] Care Team Providers Care Meter Shop Supervisor Name Role Phone Tayler Gutiérrez MD Primary Care Provider + Encounter Details Date Type Department Care Team (Late st Contact Info) Description 03/03/2017 Results Only [facility] [phone] Waqar Frost MD [address] [place] [phone] Social History Tobacco Use Types Packs/Day Years [...] Procedure Name Priority Date/Time Associated Diagnosis Comments MISCELLANEOUS TEST, OTHER Routine 03/03/2017 15:28 EDT SURGICAL PATHOLOGY Routine 03/03/2017 12 :27 EDT documented in this encounter Results * MISCELLANEOUS TEST, OTHER (03/03/2017 15:28 EDT) Test Name AMYLOID PROTEIN IDENTIFICATIO N, PARAFFIN, LC MS/MS 03/23/2017 15:30 EDT [facility] Result See Pathology Scanned Report in PRISM. 04/06/2017 19:02 EDT [facility] Ref Range See Pathology Scanned Report in PRISM. 04/06/2017 19:02 EDT [facility] Ref Lab Test performed by: 04/06/2017 19:02 EDT [facility] Comment: [place], [place] TOPOGRAPHY UNKNOWN / Unknown 03/03/2017 15:28 EDT 03/23/2017 15:28 EDT Waqar Frost MD CHEMISTRY & BLOOD GAS ORDERABLE S Final Result [facility] [address] [place] [address] * SURGICAL PATHOLOGY (03/03/2017 12:27 EDT) Pathology Report: SURGICAL PATHOLOGY REPORT Reports generated via electronic interface contain original data; however they are lacking the format of the original report. Caution should be taken when reading/interpreting unformatted reports. Name: ? JEROME ROBLEDO ? Accession #: ? [id number] ? : ? 1985 (Age: 31) ??F ?Collect Date: ? 03/03/2017 ? Location: ? [facility] ? Receive Date: ? 03/03/2017 ? Provider: WAQAR FROST MD Copy to: MODE LIANG MD MICHELE ZARAGOZA OPTICAL LAB TECHNICIAN ? Addendum ? Date Ordered: ? 03/21/2017 ? Status: Signed Out ? Date Complete: ? 03/21/2017 ? By: Jana Sanders ? Date Reported: ? 03/21/2017 ? Addendum Comment This addendum is being issued to correct a typographical error in the comment section. The last sentence in the second paragraph should read There is NO increased mitosis, necrosis or otherwise malignant feature in these biopsies. The diagnosis and comment remains unchanged. As I have indicated, the overall morphologic findings in this case are of a bland neural and connective tissue proliferation. Please see the original report for full diagnosis and detailed comment. There is no change in the diagnosis. ??(Dr. Mathur)/mpl ? Document reviewed and electronically signed by: ? KATYA MATHUR MD ? Report date: 03/21/2017 By the signature above, the attending physician certifies that he/she has personally conducted a gross and/or microscopic examination of the described specimens and rendered or confirmed the above diagnosis. Final Pathologic Diagnosis: OUTSIDE SLIDES [id number] (4), PROCEDURE DATE 02/28/2017 A. duodenal wall, mass, wedge biopsy: - ??Multifocal mature nerve bundles in muscular, fibroadipose and vascular connective tissue. - ??Foreign body with histiocytic reaction. - ??Congo red highlights congophilic vascular material; tissue will be submitted for amyloid typing to exclude a possibility of amyloid deposition. - ??SEE COMMENT. B. lymph node, periduodenal, excision: - ??Reactive lymphoid hyperplasia. See comment. Comment: Dear Dr. Frost, thank you for sending this very interesting case for consultative opinion. I have reviewed the H&E slides as well as additional recuts and stains obtained from the tissue blocks. There are mature nerve bundles in a degenerative-appearin g muscular and fibrovascular background with thickened blood vessels. Mature nerve trunks and adipose tissue are highlighted by S-100 protein DAB (4C4.9, [place]) (A) but not the remainder of the background. SYNAPTOPHYSIN (SP11, [employer]) highlights a rare ganglion cells otherwise negative and ELIZABETH (E29, Dako) highlights perineum (A). There is increased mitosis, necrosis or otherwise malignant feature in these biopsies. ?? Presence of foreign body material with microcalcification raises a possibility of reaction to the digestive material and microperforation (diverticulum at or near the site? or other degenerative muscular etiologies?), secondary to parasite or intravascular foreign material. Congophilic vascular material (Congo red stain, A) are observed. Similar findings can be in systemic amyloid deposition or congophilic like material in digestive or intravascular material. Tissue from this case will be submitted to an outside facility for typing to entirely exclude a possibility of amyloid. ??GMS and PAS-amylase are negative for fungal microorganisms. Overall findings and morphology in this case is a bland neural and connective tissue proliferation. ??Features favor a reparative or degenerative process that can be due to diverticular disease or other cause of microperforation or degenerative disease (as discussed above). ??Similar findings are termed so called neurovascular and muscular hamartoma that can present as mass like proliferation and is favored to be a reparative process. Its associations include long standing inflammation (i.e. diverticular disease, adhesions secondary to abdominal surgeries, or other inflammatory diseases etc). Although nerve proliferation is favored reparative (mature neuroma, traumatic neuroma, hamartomatous); correlation with representativeness of sampling is critical as components of lesions in non-sporadic settings can have similar morphology. Therefore, to entire exclude a possibility of hereditary/ syndromic forms of neuromas/ ganglioneuromas (i.e. in context of NF1 or MEN syndromes), correlation with the clinical presentation, focality of the lesion(s), patient and family history and completeness of excision of the mass is essential. ?? ANTIBODY(CLONE)(BLOCK ):RESULT CD20 (B-cell) (L26, [employer]), CD3(T-cell) (Rabbit Monoclonal, SP7, [employer]), CD43 (DF-T1, Dako), BCL-2 Oncoprotein (124, [place]) (B1): negative for aberrant co-expression. Cyclin D1 (SP4-R, [place]) (B1): Negative NOTE: ??One or more of the reagents used in immunoperoxidase testing in this case may not have been cleared or approved by the U.S. Food and Drug Administration (FDA). ??The FDA has determined that such clearance or approval is not necessary. ??These tests are used for clinical purposes. ??They should not be regarded as investigational or for research. ??These reagents' performance characteristics have been determined by [facility]. ??The positive and negative controls worked appropriately. If immunoperoxidase staining has been performed on alcohol fixed cytology specimens, which has not been fully validated, the assays should be interpreted with caution and correlated with clinical data. ??This laboratory is certified under the Clinical Laboratory Improvement Amendments of 1988 (CLIA-88) as qualified to perform high complexity clinical laboratory testing. ? Document reviewed and electronically signed by: ? KATYA MATHUR MD ? Report ??Date: 03/14/2017 15:54 By the signature above, the attending physician certifies that he/she has personally conducted a gross and/or microscopic examination of the described specimens and rendered or confirmed the above diagnosis. Clinical History: Duodenal mass ? Gross Description: ? Four slides are received for review from [facility], one each labelled [id number] A, [id number] A D1-3, [id number] A S1-3, [id number] B. One block is also received for review labelled [id number] A. ??Also received for review on 03/04/2017 is one block, labelled [id number] B. ? SEND OUT TEST SUMMARY REPORT ? Date Ordered: ? 03/23/2017 ? Status: ?? Signed Out ?Date Complete: ? 04/06/2017 ? By: ??Luanne Castillo ? Date Reported: ? 04/06/2017 ? Interpretation Comment As indicated in the signed out report, the finding of amyloid like material involving the vasculature was further confirmed by tissue analysis. A tissue block was submitted to [facility]; a repeat congo red was performed which was also positive. ??The liquid chromatography tandem mass spectrometry (LC MS/MS) was performed on the peptide extracted from the Congo red positive dissected areas. LC MS/MS detected a peptide profile that includes proteins deposited with amyloid of all types. ??This finding supports a diagnosis of amyloidosis. [facility] could not determine the specific type of amyloid by this analysis. ??Clinical correlation and repeat analysis on another amyloid involved site is recommended. ?? (Dr. Mathur)/ljyesenia Description Received: ??Duodenal wall mass Pathology report: ??Congophilic vascular material Gross description: ??A paraffin embedded tissue block labelled [id number] ([facility] [id number], A) has been submitted to [facility] for Amyloid Protein Identification, Paraffin, LC-MS/MS testing, requested by Dr. Mathur the sign out pathologist. ?? Document reviewed and electronically signed by: ? KATYA MATHUR MD ? Report date: 04/06/2017 By the signature above, the attending physician certifies that he/she has personally conducted a gross and/or microscopic examination of the described specimens and rendered or confirmed the above diagnosis. End of Report [facility] 03/03/2017 12:2 7 EDT 03/03/2017 12:27 EDT Waqar Frost MD PATHOLOGY ORDERABLES Final Resu lt [facility] [address] [place] [address] documented in this encounter Visit Diagnoses Not on filedocumented in this encounter Care Teams Meter Shop Supervisor Relationship Specialty Start Date End Date Tayler Gutiérrez MD [address] [place] [address] PCP - General 09/17/14 12/18/17 documented as of this encounter
--- OUTSIDE RECORDS SUMMARY | 2024-10-25 15:48 | XMS_ITS | Encounter Summary ---
Author Organization [facility] Address [address] [place] [address] Care Team Providers Care Bench Precision Assembler Name Role Phone Tayler Gutiérrez MD Primary Care Provider + Encounter Details Date Type Department Care Team (Late st Contact Info) Description 01/01/2016 Phlebotomy Only [facility] - [address] [address] Drapery Cutter, Outpatient Positive ROMI (antinuclear antibody); Gluten-sensitive enteropathy Social History Tobacco Use Types Packs/Day Years [...] Procedure Name Priority Date/Time Associated Diagnosis Comments SS-B (LA) ANTIBODY, IGG Routine 01/01/20 16 11:32 EDT Positive ROMI (antinuclear antibody) ZZHN SSA ANTIBODIES BY DONY Routine 01/01/2016 11:32 EDT Positive ROMI (antinuclear antibody) SM (ROSS) ANTIBODY, IGG Routine 016 11:32 EDT Positive ROMI (antinuclear antibody) TOW BOAT CAPTAIN ANTIBODY, IGG Routine 01/01/2016 11: 32 EDT Positive ROMI (antinuclear antibody) TISSUE TRANSGLUTAMINASE ANTIBODY, IGA Routine 01/01/2016 11:32 EDT Gluten-sensitive enteropathy DOUBLE STRANDED DNA ANTIBODY, IGG Routine 01/01/2016 11:32 EDT Positive ROMI (antinuclear antibody) C4 COMPLEMENT Routine 01/01/2016 11:32 EDT Positive ROMI (antinuclear antibody) THYROID ANTIBODIES Routine 01/01/2016 11 :32 EDT Positive ROMI (antinuclear antibody) URINALYSIS WITH MICROSCOPIC IF POSITIVE Routine 01/01/2016 11:31 EDT Positive ROMI (antinuclear antibody) documented in this encounter Results * THYROID ANTIBODIES (01/01/2016 11:32 EDT) Thyroglobulin Ab <15 <61 U/mL 01/01/20 16 13:09 EDT [facility] Thyroperoxidase Ab <28 <61 U/mL 2015 14:46 EDT [facility] Blood specimen (specimen) BLOOD SPECIMEN / Unknown 01/01/2016 11:32 EDT 01/01/2016 11:59 EDT us Kumar Hester MD CHEMISTRY & BLOOD GAS ORDERABLES Final Result [facility] [address] [place] [address] * TISSUE TRANSGLUTAMINASE AB (01/01/2016 11:32 EDT) Tissue Transglut Ab <1.2 <4 U/mL 01/02/2016 14:08 EDT [facility] Comment: The following results were obtained with the [email or web address] QUANTA Lite R h-tTG IgA DONY assay on the Qwiki DSX. A negative result may be due to IgA deficiency and does not rule out celiac disease. Blood specimen (specimen) BLOOD SPECIMEN / Unknown 01/01/2016 11:32 EDT 01/01/2016 11:59 EDT Kumar Hester MD IMMUNOLOGY AND SEROLOGY ORDERABL ES Final Result Performing Organization Address [facility] de Phone Number [facility] [address] [place] [address] * TOW BOAT CAPTAIN ANTIBODIES BY DONY (01/01/2016 11:32 EDT) TOW BOAT CAPTAIN Antibody 2.4 <20 Units 01/05/2016 17:03 EDT [facility] Comment: Negative: <20 Units Weak Positive: 20 - 29 Units Moderate Positive: 40 - 80 Units Strong Positive: >80 Units The following results were obtained with the [employer] QUANTA Lite TOW BOAT CAPTAIN DONY. TOW BOAT CAPTAIN values obtained with different manufacturers' assay methods may not be used interchangeably. The magnitude of the reported IgG levels cannot be correlated to an endpoint titer. A positive result in the QUANTA Lite TOW BOAT CAPTAIN DONY indicates the presence of antibodies reactive with the TOW BOAT CAPTAIN/Sm complex but cannot distinguish between anti-Sm and anti-TOW BOAT CAPTAIN activity. Blood specimen (specimen) BLOOD SPECIMEN / Unknown 01/01/2016 11:32 EDT 01/01/2016 11:59 EDT us Kumar Hester MD IMMUNOLOGY AND SEROLOGY ORDERABL ES Final Result Performing Organization Address [facility] de Phone Number [facility] [address] [place] [address] * SM ANTIBODIES BY DONY (01/01/2016 11:32 EDT) Sm (Ross) Antibody 3.0 <20 Units 01/05/2016 17:03 EDT [facility] Comment: Negative: <20 Units Weak Positive: 20 - 29 Units Moderate Positive: 40 - 80 Units Strong Positive: >80 Units The following results were obtained with the [employer] QUANTA Lite Sm DONY. Sm values obtained with different manufacturers' assay methods may not be used interchangeably. The magnitude of the reported IgG levels cannot be correlated to an endpoint titer. Blood specimen (specimen) BLOOD SPECIMEN / Unknown 01/01/2016 11:32 EDT 01/01/2016 11:59 EDT us Kumar Hester MD IMMUNOLOGY AND SEROLOGY ORDERABL ES Final Result Performing Organization Address [facility] de Phone Number [facility] [address] [place] [address] * SSA ANTIBODIES BY DONY (01/01/2016 11:32 EDT) SSA Antibody 2.0 <20 Units 01/05/2016 14:58 EDT [facility] Comment: Negative: <20 Units Weak Positive: 20 - 29 Units Moderate Positive: 40 - 80 Units Strong Positive: >80 Units The following results were obtained with the [employer] QUANTA Lite SS-A DONY. SS-A values obtained with different manufacturers' assay methods may not be used interchangeably. The magnitude of the reported IgG levels cannot be correlated to an endpoint titer. Blood specimen (specimen) BLOOD SPECIMEN / Unknown 01/01/2016 11:32 EDT 01/01/2016 11:59 EDT us Kumar Hester MD IMMUNOLOGY AND SEROLOGY ORDERABL ES Final Result Performing Organization Address [facility] Co de Phone Number [facility] [address] [place] [address] * SSB ANTIBODIES BY DONY (01/01/2016 11:32 EDT) SSB Antibody 1.5 <20 Units 01/05/2016 14:58 EDT [facility] Comment: Negative: <20 Units Weak Positive: 20 - 29 Units Moderate Positive: 40 - 80 Units Strong Positive: >80 Units The following results were obtained with the [employer] QUANTA SS-B DONY. SS-B values obtained with different manufacturers'assay methods may not be used interchangeably. The magnitude of the reported IgG levels cannot be correlated to an endpoint titer. Blood specimen (specimen) BLOOD SPECIMEN / Unknown 01/01/2016 11:32 EDT 01/01/2016 11:59 EDT us Kumar Hester MD IMMUNOLOGY AND SEROLOGY ORDERABL ES Final Result Performing Organization Address [facility] Co de Phone Number [facility] [address] [place] [address] * (ABNORMAL) C4 COMPLEMENT (01/01/2016 11:32 EDT) C4 Complement 14(L) 16 - 38 mg/dl 01/01/2016 15:03 EDT [facility] Blood specimen (specimen) BLOOD SPECIMEN / Unknown 01/01/2016 11:32 EDT 01/01/2016 11:59 EDT us Kumar Hester MD CHEMISTRY & BLOOD GAS ORDERABLES Final Result Performing Organization Address [facility] Co de Phone Number [facility] [address] [place] [address] * ANTI DNA (DOUBLE STRAND) (01/01/2016 11:32 EDT) [facility] Anti DNA (DS) <12.3 <30 IU/mL 01/06/2016 12:35 EDT [facility] Comment: The following results were obtained with the [email or web address] QUANTA Lite dsDNA SC Dony assay on the Qwiki DSX. Blood specimen (specimen) BLOOD SPECIMEN / Unknown 01/01/2016 11:32 EDT 01/01/2016 11:59 EDT Result Elvia Hester MD IMMUNOLOGY AND SEROLOGY ORDERABL ES Final Result Performing Organization Address [facility] Co de Phone Number [facility] [address] [place] [address] * URINALYSIS WITH REFLEX MICROSCOPIC (01/01/2016 11:31 EDT) Color, UA Yellow 01/01/2016 12:03 EDT [facility] Clarity, UA Hazy 01/01/2016 12:03 EDT [facility] Glucose, UA Neg Neg 01/01/2016 12:03 T [facility] Bilirubin, UA Neg Neg 01/01/2016 12:03 T [facility] Ketones, UA Neg Neg 01/01/2016 12:03 T [facility] Specific Isabella, Urine 1.010 1.001 - 1.035 01/01/2016 12:03 EDT [facility] Blood, UA Neg Neg 01/01/2016 12:03 T [facility] pH, UA 6.0 4.6 - 8.0 01/01/2016 12:03 T [facility] Protein, UA Neg Neg 01/01/2016 12:03 [facility] Urobilinogen, UA 0.2 0.2 - 1.0 E.U./dl 01/01/2016 12:03 T [facility] Nitrite, UA Neg Neg 01/01/2016 12:03 T [facility] Leuk Esterase Neg Neg 01/01/2016 12:03 T [facility] Urine specimen (specimen) URINE / Unknown 01/01/2016 11:31 EDT 01/01/2016 11:50 EDT us Kumar Hester MD URINALYSIS ORDERABLES Final Resu lt [facility] [address] [place] [address] documented in this encounter Visit Diagnoses Diagnosis Positive ROMI (antinuclear antibody) Other and unspecified nonspecific immunological findings Gluten-sensitive enteropathy Celiac disease documented in this encounter Care Teams Bench Precision Assembler Relationship Specialty Start Date End Date Tayler Gutiérrez MD [address] [place] [id number] PCP - General 09/17/14 12/18/17 documented as of this encounter
--- OUTSIDE RECORDS SUMMARY | 2024-10-25 15:48 | XMS_ITS | Encounter Summary ---
Author Organization [facility] Address [address] [place] [address] Care Team Providers Care Mortgage Underwriter Name Role Phone Rebekah Greco HISTORIAN DRAMATIC ARTS Primary Care Provider [phone] Encounter Details Date Type Department Care Team (Late st Contact Info) Description 07/26/2023 Lab Requisition [facility] Pathology & Laboratory Medicine - [facility] [address] [place], [place] [address] Outr Resulting Lab, Provider Social History Tobacco [...] Priority Date/Time Associated Diagnosis Comments PROGESTERONE Routine 07/26/2023 7:45 EDT ESTRADIOL, ADULTS Routine 07/26/2023 7:45 EDT LH Routine 07/26/2023 7:45 EDT documented in this encounter Results * LH (07/26/2023 7:45 EDT) Luteinizing Hormone <0.3 See Note mIU/mL 07/26/2023 20:10 EDT [facility] Comment: NOTE: Female Reference Ranges: Pre-Pubertal: ?<6.0 mIU/mL Menstruating: Follicular Phase(-12 to -4 days: ??1.9 - 12.5 mIU/mL Midcycle(-3 to +2 days): ?8.7 - 76.3 mIU/mL Luteal Phase(+4 to +12 days): ? 0.5 - 16.9 mIU/mL Post Menopausal: 15.9 - 54.0 mIU/mL Blood VENOUS BLOOD / Unknown 07/26/2023 7:45 EDT 07/26/2023 17:49 EDT us Provider Outr Resulting Lab CHEMISTRY & BLOOD GA S ORDERABLES Final Result [facility] [address] [place] [address] * PROGESTERONE (07/26/2023 7:45 EDT) Progesterone 55.7 See Table ng/mL 07/26/2023 20:22 EDT [facility] Comment: Female Reference Ranges: [...] a pathologist. Blood VENOUS BLOOD / Unknown 07/26/2023 7:45 EDT 07/26/2023 17:49 EDT us Provider Outr Resulting Lab CHEMISTRY & BLOOD GA S ORDERABLES Final Result [facility] [address] [place] [address] * ESTRADIOL, ADULTS (07/26/2023 7:45 EDT) Estradiol 564 See Note pg/mL 07/26/2023 20:00 EDT [facility] Comment: NOTE: FEMALE REFERENCE [...] this drug. Blood VENOUS BLOOD / Unknown 07/26/2023 7:45 EDT 07/26/2023 17:49 EDT us Provider Outr Resulting Lab CHEMISTRY & BLOOD GA S ORDERABLES Final Result [facility] [address] [place] [address] documented in this encounter Visit Diagnoses Not on filedocumented in this encounter Care Teams Mortgage Underwriter Relationship Specialty Start Date End Date Rebekah Greco NP PCP - General 12/19/17 documented as of this encounter
--- OUTSIDE RECORDS SUMMARY | 2024-10-25 15:48 | XMS_ITS | Encounter Summary ---
Author Organization [facility] Address [address] [place] [address] Care Team Providers Care Donor Services Team Leader Name Role Phone Rebekah Greco INSULATOR APPRENTICE Primary Care Provider [phone] Encounter Details Date Type Department Care Team (Late st Contact Info) Description 08/19/2023 Lab Requisition [facility] Pathology & Laboratory Medicine - [facility] [address] [place], [place] [id number] Outr Resulting Lab, Provider Social History Tobacco [...] Priority Date/Time Associated Diagnosis Comments PROGESTERONE Routine 08/19/2023 7:22 EDT ESTRADIOL, ADULTS Routine 08/19/2023 7:22 EDT documented in this encounter Results * PROGESTERONE (08/19/2023 7:22 EDT) Progesterone 51.1 See Table ng/mL 08/19/2023 18:44 EDT [facility] Comment: Female Reference [...] a pathologist. Blood VENOUS BLOOD / Unknown 08/19/2023 7:22 EDT 08/19/2023 17:59 EDT us Provider Outr Resulting Lab CHEMISTRY & BLOOD GA S ORDERABLES Final Result Performing Organization Address [facility] Co de Phone Number [facility] [address] [place] [address] * ESTRADIOL, ADULTS (08/19/2023 7:22 EDT) Pathologist [facility] Estradiol 1,482 See Note pg/mL 08/19/2023 18:18 EDT [facility] Comment: NOTE: FEMALE [...] this drug. Blood VENOUS BLOOD / Unknown 08/19/2023 7:22 EDT 08/19/2023 17:59 EDT us Provider Outr Resulting Lab CHEMISTRY & BLOOD GA S ORDERABLES Final Result Performing Organization Address [facility] Co de Phone Number [facility] [address] [place] [address] documented in this encounter Visit Diagnoses Not on filedocumented in this encounter Care Teams Donor Services Team Leader Relationship Specialty Start Date End Date Rebekah Greco NP PCP - General 12/19/17 documented as of this encounter
--- OUTSIDE RECORDS SUMMARY | 2024-10-25 15:48 | XMS_ITS | Encounter Summary ---
Author Organization [facility] Address [address] [place] [address] Care Team Providers Care Financial Services Representative Name Role Phone Tayler Gutiérrez MD Primary Care Provider + Encounter Details Date Type Department Care Team (Late st Contact Info) Description 03/18/2017 Documentation Visit [facility] Hematology & Oncology - [facility] [address] [place], [place] [id number] Vianey Cervantes, RN [address] [place], [place] [id number] Social History Tobacco Use Types Packs/Day Years [...] 01/01/2016 10:31 EDT documented in this encounter Progress Notes * Vianey Cervantes - 03/18/2017 1424 EDT 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. Laguna requesting review of pt's case at [facility] on 02/25, will then see pt in clinic that day. Spoke with pt initially yesterday; questions answered, contact info provided. Discussed referral, need for TB review. Pt very tearful and anxious, frustrated with the delay of appt and answers until 03/28, as she needs to know the plan by 03/25. 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 Due to the uncertainty of what her plan of care will be moving forward, pt is unable to do so and therefore will not have a job. Pt states she was referred a couple ofweeks ago and doesn't understand why she has not yet been seen. Discussed that Dr. Becker just spoke with Dr. Laguna on 03/16, that her information was received on yesterday and I spoke with her as soon as I had her records. Contacted Dr. Becker's office to discuss referral; staff confirmed pt was just referred on 03/16. They wonder if pt mistook her path slides being sent here for review on 03/03 as a referral. Provided pt appt with Dr. Laguna on 03/28 at 11 AM. Pt in agreement with this plan. Vianey Cervantes RN GI Nurse Navigator Pager [phone] documented in this encounter Plan of Treatment Not on file documented as of this encounter Visit Diagnoses Not on filedocumented in this encounter Care Teams Financial Services Representative Relationship Specialty Start Date End Date Tayler Gutiérrez MD [address] [place] [address] PCP - General 09/17/14 12/18/17 documented as of this encounter
--- OUTSIDE RECORDS SUMMARY | 2024-10-25 15:48 | XMS_ITS | Encounter Summary ---
Author Organization [facility] Address [address] [place] [address] Care Team Providers Care Lithographic General Worker Name Role Phone Tayler Gutiérrez MD Primary Care Provider + Encounter Details Date Type Department Care Team (Late st Contact Info) Description 03/15/2017 Results Only Imaging [facility] [phone] Unknown, Provider, Social History Tobacco Use Types Packs/Day Years [...] documented in this encounter Plan of Treatment Pending Results Name Type Priority Associated Diagnoses Date /Time OUTSIDE IMAGES - OTHER CHEST Imaging 03/15/2017 14:17 EDT OUTSIDE IMAGES - US BODY Imaging 03/15/2017 14:17 EDT OUTSIDE IMAGES - OTHER CHEST Imaging 03/15/2017 14:17 EDT OUTSIDE IMAGES - MAMMO BREAST Imaging 12/22/2016 14:34 EST OUTSIDE IMAGES - US BREAST Imaging 12/22/2016 14:34 EST OUTSIDE IMAGES - MAMMO BREAST Imaging 12/17/2016 14:34 EST OUTSIDE IMAGES - US BREAST Imaging 12/17/2016 14:34 EST documented as of this encounter Visit Diagnoses Not on filedocumented in this encounter Care Teams Lithographic General Worker Relationship Specialty Start Date End Date Tayler Gutiérrez MD [address] [place] [address] PCP - General 09/17/14 12/18/17 documented as of this encounter
--- OUTSIDE RECORDS SUMMARY | 2024-10-25 15:48 | XMS_ITS | Encounter Summary ---
Author Organization [facility] Address [address] [place] [address] Care Team Providers Care Optical Goods Worker Name Role Phone Tayler Gutirérez MD Primary Care Provider + Encounter Details Date Type Department Care Team (Late st Contact Info) Description 11/29/2016 Results Only [facility] [phone] Wilson Archer Social History Tobacco Use Types Packs/Day Years [...] Diagnosis Comments PAP TEST- RESULT ONLY Routine 11/29/2016 0:00 EST documented in this encounter Results * PAP TEST- RESULT ONLY (11/29/2016 0:00 EST) Pathology Report: CYTOPATHOLOGY REPORT Reports generated via electronic interface contain original data; however they are lacking the format of the original report. Caution should be taken when reading/interpreti ng unformatted reports. Name: ? JEROME ROBLEDO ? Accession #: ? [id number] : ? 1985 (Age: 31) ??F ?Collect Date: ? 11/29/2016 Location: ? [facility] ? Receive Date: ? 11/30/2016 Provider: ?WILSON ARCHER PA Copy to: ? Specimen/Source: ?Pap Test, Cervix/Endocervix, ThinPrep Imaging System with manual evaluation Last Menstrual Period: ? One week ago ? SPECIMEN ADEQUACY ? Satisfactory for Evaluation - transformation zone component present GENERAL CATEGORIZATION ? Negative for Intraepithelial Lesion or Malignancy ? Document reviewed and electronically signed by: ? MICKY De Leon(ASCP)(IAC) ? Report Date: ??12/03/2016 16:26 End of Report [facility] 11/29/2016 11/30/2016 us Wilson Archer PATHOLOGY ORDERABLES Final Resu lt [facility] [address] [place] [address] documented in this encounter Visit Diagnoses Not on filedocumented in this encounter Care Teams Optical Goods Worker Relationship Specialty Start Date End Date Tayler Gutiérrez MD [address] [place] [address] PCP - General 09/17/14 12/18/17 documented as of this encounter
--- OUTSIDE RECORDS SUMMARY | 2024-10-25 15:48 | XMS_ITS | Encounter Summary ---
Author Organization [facility] Address [address] [place] [address] Care Team Providers Care Flatbed Owner Operator Name Role Phone Rebekah Greco SPACECRAFT SYSTEMS ENGINEER Primary Care Provider [phone] Encounter Details Date Type Department Care Team (Late st Contact Info) Description 04/21/2023 Lab Requisition [facility] Pathology & Laboratory Medicine - [facility] [address] [place] [address] Franchesca Nunez MD [address] [place] [phone] Complete or unspecified spontaneous without complication Social [...] Priority Date/Time Associated Diagnosis Comments SURGICAL PATHOLOGY Today 04/21/2023 8: 20 EDT Complete or unspecified spontaneous without complication documented in this encounter Results * SURGICAL PATHOLOGY (04/21/2023 8:20 EDT) Note to Patient The following pathology results have been interpreted by your pathologist and may be available to you before your health provider has had the opportunity to review them. Please allow time for your provider to receive these results and explore management options, if applicable. 04/26/2023 9:09 [facility] Final Diagnosis A. UTERINE CONTENTS: - Products of conception, including: - fragments of immature placenta - placental implantation site - decidual endometrium 04/26/2023 9:09 [facility] Attestation There was significant resident/fellow involvement in the diagnostic evaluation of this case. By the signature below, the attending physician certifies that they have personally conducted a gross and/or microscopic examination of the described specimens and rendered or confirmed the above diagnosis. 04/26/2023 9:09 [facility] at 0909 Clinical History Miscarriage 04/26/2023 9:09 [facility] Gross Description A. Received in formalin labelled with proper patient identification (initials C, J) and products of conception is an aggregate of fragmented, romero brown tissue (5.0 x 3.5 x 0.8 cm) containing 1 piece smooth membranous tissue (2.0 x 0.4 x 0.1 cm). tissue is not identified. Architectural Superintendent sections submitted as follows: BLOCK ABREU A1- sectioned smooth membranous tissue A2-A3- veterans contact representative sections of fragmented, romero brown tissue FAUSTO BARGER MD 04/22/2023 11:12 04/26/2023 9:09 [facility] Resident/Iván w: Fausto Barger MD 04/26/2023 9:09 [facility] Performing Lab [id number] 04/26/2023 9:09 EDT [facility] Scanned Images 04/26/2023 9:09 EDT [facility] Tissue PRODUCTS OF CONCEPTION TISSUE SPECIMEN / Unknown 04/21/2023 8:20 EDT 04/21/2023 19:56 EDT us Franchesca Nunez MD PATHOLOGY ORDERABLES Irene yepez Result [facility] [address] [place] [address] documented in this encounter Visit Diagnoses Diagnosis Complete or unspecified spontaneous without complication documented in this encounter Care Teams Flatbed Owner Operator Relationship Specialty Start Date End Date Rebekah Greco NP PCP - General 12/19/17 documented as of this encounter
--- OUTSIDE RECORDS SUMMARY | 2024-10-25 15:48 | XMS_ITS | Encounter Summary ---
Author Organization [facility] Address [address] [place] [address] Care Team Providers Care Program Therapist Name Role Phone Rebekah Greco ROTARY PUMP OPERATOR Primary Care Provider [phone] Encounter Details Date Type Department Care Team (Late st Contact Info) Description 08/18/2021 Lab Requisition [facility] Pathology & Laboratory Medicine - [facility] [address] [place], [place] [address] Outr Resulting Lab, Provider Social History Tobacco [...] RNA BY PCR Routine 08/18/2021 7:20 EDT HEPATITIS B SURFACE ANTIGEN Routine 08/18/2021 7:20 EDT documented in this encounter Results * HEPATITIS B SURFACE ANTIGEN (08/18/2021 7:20 EDT) Hep B Surface Ag Negative Negative 08/19/2021 11:27 EDT [facility] Blood VENOUS BLOOD / Unknown 08/18/2021 7:20 EDT 08/18/2021 16:26 EDT us Provider Outr Resulting Lab CHEMISTRY & BLOOD GA S ORDERABLES Final Result Performing Organization Address [facility] Co de Phone Number [facility] [address] [place] [address] * HEPATITIS C AB W REFLEX TO HCV RNA BY PCR (08/18/2021 7:20 EDT) Hep C Antibody Negative Negative 08/19/2021 12:18 EDT [facility] Blood VENOUS BLOOD / Unknown 08/18/2021 7:20 EDT 08/18/2021 16:26 EDT us Provider Outr Resulting Lab CHEMISTRY & BLOOD GA S ORDERABLES Final Result Performing Organization Address City/[facility] Co de Phone Number [facility] [address] [place] [address] documented in this encounter Visit Diagnoses Not on filedocumented in this encounter Care Teams Program Therapist Relationship Specialty Start Date End Date Rebeakh Greco NP PCP - General 12/19/17 documented as of this encounter
--- OUTSIDE RECORDS SUMMARY | 2024-10-25 15:48 | XMS_ITS | Encounter Summary ---
Author Organization [facility] Address [address] [place] [address] Care Team Providers Care Call Out Clerk Name Role Phone Rebekah Greco BEET FLUMER Primary Care Provider [phone] Encounter Details Date Type Department Care Team (Late st Contact Info) Description 10/01/2022 Lab Requisition [facility] Pathology & Laboratory Medicine - [facility] [address] [place], [place] [address] Outr Resulting Lab, Provider Social History Tobacco [...] Procedure Name Priority Date/Time Associated Diagnosis Comments ZZHN INFLUENZA A AND B, RSV PCR Routine 10/01/2022 16:45 EST documented in this encounter Results * INFLUENZA A AND B,RSV PCR (10/01/2022 16:45 EST) FLU A RNA Result (FLARES) Negative Negative 10/03/2022 1:38 EST [facility] FLU B RNA Result (FLBRES) Negative Negative 10/03/2022 1:38 EST [facility] RSV RNA Result (RSVRES) Negative Negative 10/03/2022 1:38 EST [facility] Swab ENTIRE NASOPHARYNX / Unknown 10/01/2022 16:45 EST 10/02/2022 22:17 EST us Provider Outr Resulting Lab MICROBIOLOGY - GENER AL ORDERABLES Final Result Performing Organization Address City/State/[facility] Co de Phone Number [facility] [address] [place] [address] documented in this encounter Visit Diagnoses Not on filedocumented in this encounter Care Teams Call Out Clerk Relationship Specialty Start Date End Date Rebekah Greco, GRACE PCP - General 12/19/17 documented as of this encounter
--- OUTSIDE RECORDS SUMMARY | 2024-10-25 15:48 | XMS_ITS | Encounter Summary ---
Author Organization [facility] Address [address] [place] [address] Care Team Providers Care Executive Assistant To General Counsel Name Role Phone Rebekah Greco VIDEO GAME TESTER Primary Care Provider [phone] Encounter Details Date Type Department Care Team (Late st Contact Info) Description 01/09/2018 Orders Only [facility] Dermatology 3rd Floor [facility] [address] [place], [place] [address] Viky Kirkpatrick MD [address] [place], [place] [id number] Rash and other nonspecific skin eruption (Primary Dx) Social History Tobacco Use Types [...] as of this encounter Visit Diagnoses Diagnosis Rash and other nonspecific skin eruption- Primary documented in this encounter Care Teams Executive Assistant To General Counsel Relationship Specialty Start Date End Date Rebekah Greco NP PCP - General 12/19/17 documented as of this encounter
--- OUTSIDE RECORDS SUMMARY | 2024-10-25 15:48 | XMS_ITS | Encounter Summary ---
Author Organization [facility] Address [address] [place] [address] Care Team Providers Care Food Cart Attendant Name Role Phone Rebekah Greco TRANSPORTATION DESIGN ENGINEER Primary Care Provider [phone] Encounter Details Date Type Department Care Team (Late st Contact Info) Description 06/19/2021 Lab Re[address] [facility] Pathology & Laboratory Medicine - [facility] [address] [place], [place] [address] Outr Resulting Lab, Provider Social History Tobacco [...] Procedure Name Priority Date/Time Associated Diagnosis Comments CHLAMYDIA/N. GONORRHOEAE AMPLIFIED NUCLEIC ACID Routine 06/19/2021 8:20 EDT documented in this encounter Results * CHLAMYDIA/N. GONORRHOEAE AMPLIFIED RNA (06/19/2021 8:20 EDT) Neisseria gonorrhoeae Result Negative Negative 06/22/2021 14:35 EDT [facility] Chlamydia trachomatis Result Negative Negative 06/22/2021 14:35 EDT [facility] Swab ENTIRE ENDOCERVIX / Unknown 06/19/2021 8:20 EDT 06/19/2021 17:42 EDT us Provider Outr Resulting Lab MICROBIOLOGY - GENER AL ORDERABLES Final Result [facility] [address] [place] [address] documented in this encounter Visit Diagnoses Not on filedocumented in this encounter Care Teams Food Cart Attendant Relationship Specialty Start Date End Date Rebekah Greco NP PCP - General 12/19/17 documented as of this encounter
--- OUTSIDE RECORDS SUMMARY | 2024-10-25 15:48 | XMS_ITS | Encounter Summary ---
Author Organization [facility] Address [address] [place] [address] Care Team Providers Care Animal Laboratory Helper Name Role Phone Rebekah Greco PRODUCTION BOW MAKER Primary Care Provider [phone] Encounter Details Date Type Department Care Team (Late st Contact Info) Description 07/19/2023 Lab Requisition [facility] Pathology & Laboratory Medicine - [facility] [address] [place], [place] [address] Outr Resulting Lab, Provider Social History Tobacco [...] Priority Date/Time Associated Diagnosis Comments PROGESTERONE Routine 07/19/2023 7:15 EDT ESTRADIOL, ADULTS Routine 07/19/2023 7:15 EDT documented in this encounter Results * PROGESTERONE (07/19/2023 7:15 EDT) Progesterone 43.8 See Table ng/mL 07/19/2023 18:55 EDT [facility] Comment: Female Reference [...] a pathologist. Blood VENOUS BLOOD / Unknown 07/19/2023 7:15 EDT 07/19/2023 17:29 EDT us Provider Outr Resulting Lab CHEMISTRY & BLOOD GA S ORDERABLES Final Result Performing Organization Address [facility] Co de Phone Number [facility] [address] [place] [address] * ESTRADIOL, ADULTS (07/19/2023 7:15 EDT) [facility] Estradiol 1,228 See Note pg/mL 07/19/2023 18:36 EDT [facility] Comment: NOTE: FEMALE [...] this drug. Blood VENOUS BLOOD / Unknown 07/19/2023 7:15 EDT 07/19/2023 17:29 EDT us Provider Outr Resulting Lab CHEMISTRY & BLOOD GA S ORDERABLES Final Result Performing Organization Address [facility] Co de Phone Number [facility] [address] [place] [address] documented in this encounter Visit Diagnoses Not on filedocumented in this encounter Care Teams Animal Laboratory Helper Relationship Specialty Start Date End Date Rebekah Greco NP PCP - General 12/19/17 documented as of this encounter
--- OUTSIDE RECORDS SUMMARY | 2024-10-25 15:48 | XMS_ITS | Encounter Summary ---
Author Organization [facility] Address [address] [place] [address] Care Team Providers Care Forging Dies Final Finisher Name Role Phone Tayler Gutiérrez MD Primary Care Provider + Encounter Details Date Type Department Care Team (Latest Contact Info) Description 10/13/2017 16:35 EST - 10/13/2017 23:59 EST Hospital Encounter [address] [address] Unknown, Provider, Discharge Disposition: Home or Self Care Social [...] 03/28/2017 11:04 EDT documented in this encounter Medications at Time of Discharge LORazepam (ATIVAN) 1 mg tablet Take 1 mg by mouth 3 times daily. Multivitamins with Minerals Tab Take 1 Tab by mouth daily. omeprazole (PRILOSEC) 20 mg capsule Take 20 mg by mouth daily. sertraline (ZOLOFT) 50 mg tablet Take 50 mg by mouth. traZODone (DESYREL) 50 mg tablet Take 50 mg by mouth daily. UNABLE TO FIND Casey--Grady hcontrol documented as of this encounter Discharge Disposition Disposition Code Departure Means Destination Home or Self [facility] documented in this encounter Plan of Treatment Not on file documented as of this encounter Visit Diagnoses Not on filedocumented in this encounter Care Teams Forging Dies Final Finisher Relationship Specialty Start Date End Date Tayler Gutiérrez MD [address] [place] [id number] PCP - General 09/17/14 12/18/17 documented as of this encounter
--- OUTSIDE RECORDS SUMMARY | 2024-10-25 15:48 | XMS_ITS | Encounter Summary ---
Author Organization [facility] Address [address] [place] [address] Care Team Providers Care Decoration Checker Name Role Phone Rebekah Greco PARTS PICKER Primary Care Provider [phone] Encounter Details Date Type Department Care Team (Late st Contact Info) Description 06/23/2021 Lab Requisition [facility] Pathology & Laboratory Medicine - [facility] [address] [place], [place] [address] Outr Resulting Lab, Provider Social History Tobacco [...] Procedure Name Priority Date/Time Associated Diagnosis Comments HIV 1/2 ANTIGEN AND ANTIBODY, 4TH GENERATION Routine 06/23/2021 7:09 EDT documented in this encounter Results * HIV 1/2 ANTIGEN AND ANTIBODY, 4TH GENERATION (06/23/2021 7:09 EDT) HIV 1 and 2 Antibody/p24 Antigen, 4th Generation Negative Negative 06/23/2021 18:18 EDT [facility] Comment: If acute HIV-1 infection is suspected in a high risk ??patient, submit plasma specimen for HIV-1 RNA quantitation test. Fourth Generation assay performed on the Siemens SmartGrainsaur. Blood VENOUS BLOOD / Unknown 06/23/2021 7:09 EDT 06/23/2021 16:02 EDT us Provider Outr Resulting Lab IMMUNOLOGY AND SEROL OGY ORDERABLES Final Result Performing Organization Address City/State/[facility] Co de Phone Number [facility] [address] [place] [address] documented in this encounter Visit Diagnoses Not on filedocumented in this encounter Care Teams Decoration Checker Relationship Specialty Start Date End Date Rebekah Greco NP PCP - General 12/19/17 documented as of this encounter
--- OUTSIDE RECORDS SUMMARY | 2024-10-25 15:48 | XMS_ITS | Encounter Summary ---
Author Organization [facility] Address [address] [place] [address] Care Team Providers Care Air Compressor Engineer Name Role Phone Tayler Gutiérrez MD Primary Care Provider + Reason for Referral * Consult, Test and Treat (Routine) - Closed Specialty Diagnoses / Procedures Referred By Contact Referred To Contact Gastroenterology and Hepatology Diagnoses Epigastric pain Procedures ENDOSCOPIC ULTRASOUND Bacilio Laguna MD Phone: tel: fax: Artur Mancera MD Phone: tel:[phone] fax:[phone] Referral ID Status Reason Start Date Expiration Date Visits Re quested Visits Authorized [id number] Closed 03/28/2017 1 1 Reason for Visit * Reason Comments New Patient Visit Duodenal Mass (TB Di scussion 03/28) Encounter Details Date Type Department Care Team (Late st Contact Info) Description 03/28/2017 11:00 EDT Office Visit [facility] General Surgery - [facility] [address] [place], [place] [id number] Bacilio Laguna MD [address] [facility], [address] [place] [id number] Epigastric pain (Primary Dx) Social History Tobacco Use Types [...] EDT Pulse 72 03/28/2017 1102 EDT Temperature - - Respiratory Rate - - Oxygen Saturation - - Inhaled Oxygen Concentration - - Weight 55.1 kg (121 lb 6.4 oz) 03/28/2017 1102 E DT Height 162.6 cm (5' 4) 03/28/2017 1102 EDT Body Mass Index 20.84 03/28/2017 1102 EDT documented in this encounter Functional Status * Because of [...] 03/28/2017 11:04 EDT documented in this encounter Progress Notes * Bacilio Laguna MD - 03/28/2017 1100 EDT Division of General Surgery Date of Service: 03/28/2017 PROBLEM: 1. Epigastric pain HISTORY OF PRESENT ILLNESS: I am seeing Jerome Robledo in the office today in consultation by Dipesh Acevedo MD for 1. Epigastric pain This is a 31 y.o. female Who has had at least a 3-month history of abdominal pain. The pain is mostly in her left upper abdomen, it is constant, but exacerbated with eating. Actually, she can only eat small bits of food at a time. She does like to snack on pretzels. Once a day she tries to drink a C arnation Instant Breakfast. She is not hungry and has to force herself to do so. She has lost a total of 19 pounds. She states the pain has been getting worse instead of better. She had an upper endoscopy, which showed no mucosal abnormality. She had an ultrasound of her right upper quadrant and a CCK stimulated HIDA scan, which were also normal. She underwent a CT scan of the abdomen, which showed a jejunal intussusception in the left upper quadrant. She was then sent to the emergency room, but after evaluation in the emergency room was sent home, and a followup with Dr Becker was planned.The following Tuesday, she was taken to the operating room for exploration. At first, a diagnostic la paroscopy was performed, and there was no evidence of the small bowel intussusception. There was some inflammation around the duodenum and a mass was seen. Upper endoscopy showed some dimpling in thestomach and antrum, and it was unclear if it was associated with this mass, but it was not big enough at that point to have an endoscope in. The endoscope did pass easily without obstruction into the3rd portion of the duodenum at the time. A wedge biopsy was obtained of this mass and at first it was thought to be of neuronal origin. Our pathologist reviewed the film here. Staining was negative for amyloid. There were some focal mature nerve bundles in muscular fibroadipose and vascular connective tissue, all normal benign tissue. There were some histiocytes, possibly related to a foreign body reaction. A biopsy was done with an open epigastric incision, and [facility] She comes to me now for evaluation after we discussed her at tumor board this morning.We reviewed the pathology slides as well as the CT imaging that was done. The stated that he could see the mass through the abdominal wall prior to surgery. It is unclear whether or not he can see it now. Certainly the patient does not see the mass. She has a history of anxiety and depression and takes Ativan, trazodone and Zoloft. Past Medical History: Diagnosis Date ??? Depression Past Surgical History: Procedure Laterality Date ??? ABDOMINAL HERNIA REPAIR 2014 ??? HERNIA REPAIR ??? KNEE SURGERY 2004 right knee lateral release (?) Meera Quinones ??? PLANTAR FASCIA SURGERY Right 2012 Family History Problem Relation Age of Onset ??? Arthritis-Osteo Paternal Grandmother ??? Arthritis Paternal Grandmother ??? Depression Mother ??? Colon Cancer Maternal Grandfather ??? Pancreatic Cancer Maternal Grandfather Social History Social History ??? Marital status: Spouse name: N/A ??? Number of children: N/A ??? Years of education: N/A Social History Main Topics ??? Smoking status: Never Smoker ??? Smokeless tobacco: Never Used ??? Alcohol use No ??? Drug use: No ??? Sexual activity: Yes Partners: Male Other Topics Concern ??? None Social History Narrative Current Outpatient Prescriptions Medication Sig Dispense Refill ??? LORazepam (ATIVAN) 1 mg tablet Take 1 mg by mouth 3 times daily. ??? Multivitamins with Minerals Tab Take 1 Tab by mouth daily. ??? omeprazole (PRILOSEC) 20 mg capsule Take 20 mg by mouth daily. ??? sertraline (ZOLOFT) 50 mg tablet Take 50 mg by mouth. ??? traZODone (DESYREL) 50 mg tablet Take 50 mg by mouth daily. ??? UNABLE TO FIND Kilnor--Birthcontrol No current facility-administered medications for this visit. No Known Allergies REVIEW OF SYSTEMS: A ten point review of systems was performed and all were negative except as listed below. Patient Active Problem List Diagnosis ??? Plantar fascial fibromatosis ??? Right anterior knee pain ??? Near syncope ??? Epigastric pain OBJECTIVE: Vitals: 03/28/17 1102 BP: 98/66 Pulse: 72 Weight: 55.1 kg (121 lb 6.4 oz) Height: 162.6 cm (64) Body mass index is 20.84 kg/(m^2). She is afebrile. General: No acute distress. HEENT: Normal. Neck: Supple. Skin: Normal. Lungs: Clear, bilaterally. Heart: Regular rate and rhythm. Abdomen: Soft, nondistended, nontender, no masses, no organomegaly. Vascular: Normal. Musculoskeletal: Normal. Neurologic: Normal. ASSESSMENT & PLAN: A 31 y.o. female With abdominal pain. Etiologies are unclear at this point. She may have had an ulcer and/or a perforated duodenal diverticulum, and it is possible that that did cause some gastric motility problems. She also had an intussusception in the jejunum, but sometimes that is also physiologic, as seen by Dr Becker on exploration where there was no intussusception seen. The mass in the duodenal region is likely benign, and putting her through a Whipple operation for something like this would not be indicated at this point considering we do not have a diagnosis. Because she had surgery a month ago, she still may have some inflammation in that region and an endoscopic ultrasound may be difficult to interpret. We will wait another month before her endoscopic ultrasound to reexamine this area, evaluate her mucosa, evaluate the stomach dimpling and potentially do an FNA of this mass again to see if there is any evidence of malignancy. I expect it will be inflammatory in nature and should go away in time. She also had that jejunal intussusception, and the pain was mostly on the left side. We will do an upper GI study to evaluate for intussusception and/or a small bowel mass that is the lead point for this. If neither is seen, we will wait some time before getting the endoscopic ultrasound. The upper GI study will also tell us if there is obstruction to outflow from the stomach. If she has a jejunal mass, then we will bring her back to discuss a small bowel resection. If she has an endoscopic ultrasound in a month and that is again benign, repeat imaging should be performed in mid-May, 3 months out from her exploratory surgery to see if she has a persistent mass and then following that periodically would be worthwhile to be sure it does not grow. Her a state bruce is being transferred from [place] to [facility]. Right now he is commuting. 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 I told her that it does sometimes take a while to evaluate all the pieces of a puzzle and there are still a couple of puzzle pieces missing. We will get those in a timely fashion and proceed in a systematic way from here on out. She accepted. I also encouraged her to take more protein in if she could including some more nutritional supplements. Primary Care Provider: Tayler Gutiérrez MD Referring Provider: Dipesh Acevedo MD documented in this encounter Plan of Treatment Scheduled Orders Name Type Priority Associated Diagnoses Orde r Schedule ENDOSCOPIC ULTRASOUND GI Routine Epigastric pain Ordered: 03/28/2017 documented as of this encounter Visit Diagnoses Diagnosis Epigastric pain- Primary Abdominal pain, epigastric documented in this encounter Historical Medications * This list may reflect changes made after this encounter. UNABLE TO FIND Kil[place]--Grady hcontrol omeprazole (PRILOSEC) 20 mg capsule Take 20 mg by mouth daily. LORazepam (ATIVAN) 1 mg tablet Take 1 mg by mouth 3 times daily. traZODone (DESYREL) 50 mg tablet Take 50 mg by mouth daily. added in this encounter Care Teams Air Compressor Engineer Relationship Specialty Start Date End Date Tayler Gutiérrez MD [address] [place] [id number] PCP - General 09/17/14 12/18/17 documented as of this encounter
--- OUTSIDE RECORDS SUMMARY | 2024-10-25 15:48 | XMS_ITS | Encounter Summary ---
Author Organization [facility] Address [address] [place] [address] Care Team Providers Care Psychiatric Cns Name Role Phone Rebekah Greco COMMUNICATIONS TOWER TECHNICIAN Primary Care Provider [phone] Encounter Details Date Type Department Care Team (Late st Contact Info) Description 08/18/2021 Lab Requisition [facility] Pathology & Laboratory Medicine - [facility] [address] [place], [place] [address] Outr Resulting Lab, Provider Social History Tobacco [...] 1/2 ANTIGEN AND ANTIBODY, 4TH GENERATION Routine 08/18/2021 7:20 EDT documented in this encounter Results * HIV 1/2 ANTIGEN AND ANTIBODY, 4TH GENERATION (08/18/2021 7:20 EDT) HIV 1 and 2 Antibody/p24 Antigen, 4th Generation Negative Negative 08/19/2021 11:[address] [facility] Comment: If acute HIV-1 infection is suspected in a high risk ??patient, submit plasma specimen for HIV-1 RNA quantitation test. Fourth Generation assay performed on the Siemens Melody Managementaur. Blood VENOUS BLOOD / Unknown 08/18/2021 7:20 EDT 08/18/2021 16:26 EDT us Provider Outr Resulting Lab IMMUNOLOGY AND SEROL OGY ORDERABLES Final Result Performing Organization Address City/State/[facility] Co de Phone Number [facility] [address] [place] [address] documented in this encounter Visit Diagnoses Not on filedocumented in this encounter Care Teams Psychiatric Cns Relationship Specialty Start Date End Date Rebekah Greco NP PCP - General 12/19/17 documented as of this encounter
--- OUTSIDE RECORDS SUMMARY | 2024-10-25 15:49 | XMS_ITS | Encounter Summary ---
Author Organization [facility] Address [address] [place] [address] Care Team Providers Care Explosive Ordnance Disposal Specialist Name Role Phone Monique Gonzalez Primary Care Provider [phone] Encounter Details Date Type Department Care Team (Late st Contact Info) Description 01/26/2012 9:28 EDT - 01/26/2012 20:09 EDT Hospital Encounter [facility] Perioperative Services - [address] [id number] Dean Ace DPM [address] [place], [place] [id number] Discharge Disposition: Home or Self Care Social History Tobacco Use Types Packs/Day Years Used Date Smoking Tobacco: Never Assessed Comments Unknown Sex and Gender Information Value Date Recorded Sex Assigned at Not on file Legal Sex Female 18:30 EST Gender Identity Not on file Sexual Orientation Not on file documented as of this encounter Last Filed Vital Signs Vital Sign Reading Time Taken Comments Blood Pressure 105/57 01/26/2012 1930 EDT Pulse - - Temperature 36.1 ??C (97 ??F) 01/26/2012 1930 EDT Respiratory Rate 16 01/26/2012 1930 EDT Oxygen Saturation 99% 01/26/2012 1945 EDT Inhaled Oxygen Concentration - - Weight 61.2 kg (135 lb) 01/24/2012 1615 EDT Height 162.6 cm (5' 4) 01/24/2012 1615 EDT Body Mass Index 23.17 01/24/2012 1615 EDT documented in this encounter Discharge Instructions * Discharge Instructions* Dean Ace MD - 01/26/2012 14:25 EDT [facility] DEAN ACE, RUSS Fellow, [employer] Diplomat, [employer] Jerome Ross 1985 01/26/2012 [x] Right [] Left Foot Your compliance is absolutely necessary to facilitate a prompt and complete recovery. 1. Medication: If you haven't already picked up your prescription, then have it filled immediately following surgery. Take your medication exactly as your doctor has ordered. Do not consume alcoholicbeverages while taking your medication. 2. Pain Medication: Please follow the instructions below if prescribed the following. [] Percocet: 1-2 Tablets by mouth every 4-6 hours as needed for pain. [x] Vicodan: 1-2 Tablets by mouth every 4-6 hours as needed for pain. [] Tylenol #3: 1-2 Tablets by mouth every 3-4 hours as needed for pain. [x] Toradol: 1 Tablet by mouth every 4-6 hours as needed for pain. [x] Other: Zofran 4 mg every 8 hrs as needed for nausea. 3. Rest & Elevation: Rest. Keep leg/Foot elevated for 72 hours. Elevate your leg and foot on a pillow approximately six inches above the level of your hip. 4. Ice: Place an ice bag over your ankle 20 minutes on and then 20-30 minutes off for the first 24-48 hours unless your doctor gives you other instructions. 5. Ambulate: Carefully follow instructions regarding weight bearing and walking on the operated foot. Avoid climbing steps if possible. Wear your surgical shoe, brace, or cast at all times. [] You may ambulate without restrictions [x]Please use crutch or walker for ambulation/ non weight bearing in boot. [] Please use wheelchair for ambulation/non weight bearing 6. Surgical Bandage: DO NOT change dressing until instructed to do so below. [x] Keep dressing dry and intact. [] Change dressing in days, then daily clean area with soap & water then apply a dry bandage daily. [x] May remove outside bandage and re-wrap if too tight. 7. Bathing: [x]You may sponge bathe. You may shower after the first dressing change. 8. Bleeding: A small amount of bleeding may show through your bandage. Do not be alarmed. Rest and elevate your foot. If the bleeding continues for hours despite elevation, call your doctor. 9. Discomfort: There is a certain amount of normal post-operative discomfort and swelling with any surgical procedure. Please try to remain relaxed and follow all of the above instructions. Take yourmedication as directed. [x] May remove outside bandage and re-wrap if too tight. 10. Keep your post operative appointment on 02/01/2012 at 12 : 00 pm in the office. 11. Additional Instructions: Keep cotton roll under toes. May reduce thickness of roll if needed. Dean Ace MD 01/26/2012 documented in this encounter Medications at Time of Discharge Multivitamins with Minerals Tab Take 1 Tab by mouth daily. BUPROPION HCL (WELLBUTRIN ORAL) Take 150 mg by mouth daily. 01/01/2016 NORETH A-ET ESTRA/FE FUMARATE (LO LOESTRIN FE ORAL) Take by mouth. 01/01/2016 SULFAMETHOXAZOLE ORAL Take by mouth daily. 01/01/2016 documented as of this encounter Discharge Disposition Disposition Code Departure Means Destination Home or Self Care documented in this encounter Progress Notes * PHOTO FINISHER, SCAN 2 - 01/28/2012 2309 EDT * Oneida Vincent MD - 01/26/2012 1640 EDT Called to see patient due to possible syncopal episode. Pt had plantar faciotomy by Dr Terry gallego/EMILIE earlier in the day. She met discharge criteria in the PACU and was doing well until in her car with significant other. There she appeared to have a syncopal episode and was brought back into the recovery area. On arrival she is awake, alert, and oriented. Vital signs are stable. Plan is to observe patient and give oral rehydration. Will re-evaluate prior to discharge, anticipate discharge to home. * Kareen Salgado RN - 01/26/2012 1631 EDT 1610 Patient escorted out to car to meet fiance. Transfer assist from wheel chair to car, patient lifted self out of wheel chair and stood and pivoted into car seat. Patient awake and communicating, complaining of feeling tired. * Austin Mancilla RN - 01/26/2012 1620 EDT 1610- pt leaving pacu escorted to car by Chiqiuta DONALDSON 1615- Pt rushing into the PACU showing some sort of police or official looking badge yelling at RN that You need to come with me right now to car immediately as finace is passed out in front seat. RN rushed out to car to find PT crying but responsive and awake in front seat. Pt assissted into wheel chair. Walk in code team now present. PT brought back to pacu awake alert but crying withno signs of acute distress. Dr vincent from anesthesia present vital signs are within normal parameters pt calming down some 1630- Plan to observe and monitor Pt no other orders received per Dr Vincent 1730- Pt continues to have pain, also now crying and anxious again. Fiance at side medicated per orders dr Vincent aware of situation. 1800- Pt states that pain medicine has helped she feels better now. PT having sips of apple juice and anabelle crackers and kyrie well. Has good color and vital signs are within parameters. Fiance remains at side to offer emotional support 1837- pt needing to use bathroom pt sat up dangling at bedside with RN assistance. Pt began crying again after sitting up states she is feeling dizzy. RN told pt sit on bedside and get bearings before standing. Again pt was reassured of safety that RN would be by her side 1845- PT voiding w.o. Difficulty in bathroom than back to bed, Pt remains tearful over discharge ptstates she is nervious and anxious about getting to the car and going home. RN will notify Dr Vincent from anesthesia and go from there 1899- Dr Vincent at bedside talking with pt 1944- Pt sitting up at bedside states she is feeling dizzy but is expressing a desire to go home. Dr Vincent from anesthesia at bedside will get pt ready for discharge at a very slow rate. 2007- Pt escorted out to car by RN and Dr Vincent from anesthesia. Pt reassured of safety and was asked if she felt okay pt was awake and communicative without any signs of distress. Pt's fiance expressed comfort with taking her home. * Austin Mancilla RN - 01/26/2012 1613 EDT 01/26/12 1600 01/26/12 1610 Assessment Activity pt up getting dressed now with much encourgement from RN and juna briseno rn assisting pt encourged that everything will be okay at home and discharge is the next step in the treatment plan. PT verbalizes understanding and feels she can cope and feels okay going home at this time pt leaving pacu awake alert without distress. Pt verbalizes desire for discharge and understanding of instructions * Austin Mancilla RN - 01/26/2012 1545 EDT 01/26/12 1545 Assessment Activity pt up to bathroom voiding w.o. difficulty than back to bed wishes to rest then get dressed * Austin Mancilla RN - 01/26/2012 1537 EDT 01/26/12 1536 Assessment Nausea No Activity pt encourged to sit up on side of bed. RN got pt up to bedside to dangle with assistance. Then PT began crying Fiance at side again comforting pt and encourging her that everything is ok. RNcontinuing to offer emotional support as needed Thermal Comfort Warm Neurological Neuro (WDL) WDL Level of Consciousness Alert Orientation Level Oriented X3 Pt than up to bathroom voiding w.o. Difficulty * Austin Mancilla RN - 01/26/2012 1449 EDT 01/26/12 1445 Assessment Activity pt calming down now fiance at side still comforting pt Pt relaxing in bed now dozing on and off * Austin Mancilla RN - 01/26/2012 1431 EDT 01/26/12 1423 01/26/12 1430 Assessment Activity pt arrived in pacu placed on monitor stable drowsy and anxious reassured of safety pt continues to be anxious and crying post local MAC family now at side attempting to calm pt. PT reassuredof safety by RN PT has hx of anxiety and mood disorders per prism notes. RN will continue to assess and comfort patient as necessary per assessment * Lisa Ross - 01/24/2012 1622 EDT Jerome Je Cody has been instructed as follows regarding medication administration for the day of the scheduled procedure. Date of Surgery: 01/26/12 Instructions for Taking Medications Day of Surgery Medication Last Dose Hold DOS Take DOS SULFAMETHOXAZOLE ORAL Yes Multivitamins with Minerals Tab n BUPROPION HCL (WELLBUTRIN ORAL) y NORETH A-ET ESTRA/FE FUMARATE (LO LOESTRIN FE ORAL) y documented in this encounter H&P Notes * PHOTO FINISHER, SCAN 2 - 01/28/2012 2309 EDT * Dean Ace MD - 01/26/2012 0946 EDT The preoperative history and physical which was performed within 30 days of this procedure has been reviewed and the clinically appropriate elements of the physical examination have been repeated. There are no changes to the documented history and physical or if so such changes are documented below Dean Ace MD 01/26/2012 9:46 documented in this encounter Procedure Notes * PHOTO FINISHER, SCAN 2 - 01/28/2012 0232 EDTAssociated Order(s): ECG REPORT - SCANNED * PHOTO FINISHER, SCAN 2 - 01/28/2012 2153 EDTAssociated Order(s): ORDERS - SCANNED documented in this encounter OR Notes * Anesthesia Preprocedure Evaluation - PHOTO FINISHER, SCAN 2 - 02/03/2012 0940 EDT * OR PreOp - PHOTO FINISHER, SCAN 2 - 01/28/2012 2309 EDT * OR Surgeon - Dean Ace MD - 01/27/2012 0811 EDT OPERATIVE REPORT SERVICE DATE: 01/26/2012 SURGEON: Dean Ace DPJe PROCEDURE: Right plantar fasciectomy. PREOPERATIVE DIAGNOSIS: Chronic plantar fasciitis with fascial tear, right foot. POSTOPERATIVE DIAGNOSIS: Chronic plantar fasciitis with fascial tear, right foot. ANESTHESIA: Monitored anesthesia care with local. INDICATIONS: This pleasant 27-year-old woman presented to the office having almost a year of chronic heel pain. Her heel pain had been localized at the level of the plantar fascia with failure of immobilization, casting, having persistent pain and discomfort at this site. Given the chronicity of the problem and ongoing issue, she elected to undergo surgical management of this issue. She did so understanding the risks, benefits, and alternatives as have been explained to her, including but not limited to the potential for incomplete resolution of her symptoms, persistent pain and discomfort, the possible need for chronic orthotic therapy, neurovascular injury, infection, wound complications and painful scar formation. These issues along with tendinitis and persistent foot pain had been discussed and reviewed with her extensively preoperatively with all her questions answered to her satisfaction. She elected to proceed with surgical management having failed all the conservative therapies and interventions previously outlined. NARRATIVE: The patient was positioned on the operating room table, anesthetized per anesthesia. Local infiltrate given in the plantar aspect of the right foot and attention directed to the plantar aspect of the right foot where a 4 cm curvilinear incision was made following relaxed skin tension lines. The incision was carried directly down to the underlying fascia, which was identified and medialand lateral borders exposed. The fascial band was then identified and sharply transected up to the underlying muscle fibers which were directly visualized. These fibers were then from the underlying muscle belly and inspection of both the medial and lateral aspects of the fascial band were then pursued. Complete release was then noted, the wound site copiously irrigated with normal saline solution. A 1 cm window had been created and layered closure performed utilizing Monocryl and Prolene suture. ESTIMATED BLOOD LOSS: Less than 20 mL. FLUIDS: 600 mL LR. DRAINS: None. SPECIMENS: None. CULTURES: None. COMPLICATIONS: None. DISPOSITION: The patient tolerated the procedure and anesthesia well, was discharged to home per [facility] procedure protocol. FINDINGS: Taut plantar fascia released without any residual tension noted following release, right foot. Unless otherwise noted, there were no complications, no blood loss, no cultures obtained, no specimens removed, and no drains retained. Dean Ace DPM 04 37 PM / Dean Ace DPM ss Confirmation: [id number] Dictation ID: [id number] cc: Monique Gonzalez PA-C * Anesthesia Procedure Notes - PHOTO FINISHER, SCAN 2 - 01/26/2012 1427 EDT * OR PreOp - PHOTO FINISHER, SCAN 2 - 01/26/2012 1412 EDT documented in this encounter Miscellaneous Notes * Scanned Note-Null - PHOTO FINISHER, SCAN 2 - 01/28/2012 5220 EDT * Scanned Note-Null - PHOTO FINISHER, SCAN 2 - 01/28/2012 0637 EDT * Brief Op Note - PHOTO FINISHER, SCAN 2 - 01/28/2012 2309 EDT * Anesthesia Post-Eval - Oneida Vincent MD - 01/26/2012 1959 EDT Post Anesthesia Evaluation Note Date of Service: 01/26/2012 Jerome Ross, a 26 y.o. year old female has received MAC today. She has been evaluated, assessed and discharged from anesthesia care with stable cardiorespiratory function and alert mental status. The last set of recorded vital signs and pain rating were reviewed: Heart Rate: 76 BPM (01/26/121906), BP: 103/60 mmHg (01/26/121914), Resp: 18 (01/26/121914), SpO2: 97 % (01/26/121914),Numeric Pain Level (Scale 1-10): 3 (pt states current pain level is tolerable) Pt doing well, she had been re-admitted after a syncopal episode while getting into her car after discharge earlier. PO rehydration provided, pain is under control, nausea treated, she is now improved. Vital signs were stable throughout re-admission. Jerome Ross participated in this evaluation unless otherwise noted. Her pain, nausea and vomiting have been managed and her body temperature and fluid balance have been restored. Additional monitoring and assessment needs have been addressed. If present, any postoperative events are documented below. ONEIDA VINCENT MD 01/26/2012 19:59 * Anesthesia Post-Eval - Oneida Vincent MD - 01/26/2012 1522 EDT Post Anesthesia Evaluation Note Date of Service: 01/26/2012 Jerome Ross, a 26 y.o. year old female has received MAC today. She has been evaluated, assessed and discharged from anesthesia care with stable cardiorespiratory function and alert mental status. The last set of recorded vital signs and pain rating were reviewed: Temp: 37.4 ??C (99.3 ??F) (01/26/12 1423), Heart Rate: 64 BPM (01/26/12 1515), BP: 105/56 mmHg (01/26/12 1515), Resp: 20 (01/26/12 1515), SpO2: 98 % (01/26/12 1500),Numeric Pain Level (Scale 1-10): 0 Jerome Ross participated in this evaluation unless otherwise noted. Her pain, nausea and vomiting have been managed and her body temperature and fluid balance have been restored. Additional monitoring and assessment needs have been addressed. If present, any postoperative events are documented below. ONEIDA VINCENT MD 01/26/2012 15:22 documented in this encounter Plan of Treatment Not on file documented as of this encounter Procedures Procedure Name Priority Date/Time Associated Diagnosis Comments ECG REPORT - SCANNED 01/28/2012 23:09 EDT ORDERS - SCANNED 01/28/2012 23:0 9 EDT documented in this encounter Results * ORDERS - SCANNED (01/28/2012 23:09 EDT) 01/28/2012 23:0 9 EDT Narrative Transcriptions PHOTO FINISHER, SCAN 2 - 01/28/2012 23:09 EDT us Scan 2 Hop Worker ADMISSION ORDERABLES Final Result * ECG REPORT - SCANNED (01/28/2012 23:09 EDT) 01/28/2012 23:0 9 EDT Narrative Transcriptions PHOTO FINISHER, SCAN 2 - 01/28/2012 23:09 EDT us Scan 2 Hop Worker PROCEDURE/MINOR SURGICAL OR DERABLES Final Result documented in this encounter Visit Diagnoses Not on filedocumented in this encounter Administered Medications Inactive Administered Medications - up to 3 most recent administrations Medication Order MAR Action Action Date Dose Rate Site acetaminophen (TYLENOL) 500 mg tablet 1 dose, Starting on Tue01/26/12 at 1713, Until Tue01/26/12 at 1719 acetaminophen (TYLENOL) tablet 1,000 mg 1,000 mg, oral, Once (Without Time Specified), 1 dose, Starting on Tue01/26/12 at 1659, Until Tue01/26/12 at 1719, Routine Given 01/26/2012 17:19 EDT mg ceFAZolin (ANCEF) syringe 1 g 1 g, intravenous, Administer over 10 Minutes, PRE-OP ONCE, 1 dose, On Tue01/26/12 at 0600, Routine Given by Other 01/26/2012 13:40 EDT 1 g HYDROmorphone (DILAUDID) tablet 2 mg 2 mg, oral, PRN, 2 doses, Starting on Tue01/26/12 at 1410, Until Tue01/26/12 at 1741, Pain, Routine, Recovery (only) Given 01/26/2012 17:41 EDT 2 mg Given 01/26/2012 17:19 EDT 2 mg lactated ringers (LR) infusion at 25 mL/hr, intravenous, CONTINUOUS, Starting on Tue01/26/12 at 1015, Until Tue01/26/12 at 1414, Routine, Pre-Op DOS Rx Approved New Bag 01/26/2012 10:23 EDT 25 mL/hr ondansetron (ZOFRAN-ODT) 4 mg disintegrating tablet 1 dose, Starting on Tue01/26/12 at 1717, Until Tue01/26/12 at 1723 ondansetron (ZOFRAN-ODT) disintegrating tablet 4 mg 4 mg, oral, EVERY 4 HOURS PRN, Starting on Tue01/26/12 at 1716, Until Tue01/26/12 at 2254, Nausea, Routine Given 01/26/2012 17:23 EDT 4 mg documented in this encounter Discontinued Medications Medication Sig Discontinue Reason Start Date End Da te UNABLE TO FIND Med Name: sulfameth for acne Error 01/24/2012 documented as of this encounter Historical Medications * This list may reflect changes made after this encounter. Multivitamins with Minerals Tab Take 1 Tab by mouth daily. SULFAMETHOXAZOLE ORAL Take by mouth daily. 01/01/2016 added in this encounter Active and Recently Administered Medications Times are shown in EDT. Scheduled Medication Order 01/24/2012 01/25/2012 01/26/2012 acetaminophen (TYLENOL) tablet 1,000 mg (COMPLETED) 1,000 mg, oral, Once (Without Time Specified), 1 dose, Starting on Tue01/26/12 at 1659, Until Tue01/26/12 at 1719, Routine 1719 (Given - Provid er: Austin Mancilla RN) ceFAZolin (ANCEF) syringe 1 g (COMPLETED) 1 g, intravenous, Administer over 10 Minutes, PRE-OP ONCE, 1 dose, On Tue01/26/12 at 0600, Routine 1340 (Given by Other - Provider: Radha Suarez RN - Comment: Given by Prakash Lamb CRNA) Continuous Medication Order 01/24/2012 01/25/2012 01/26/2012 lactated ringers (LR) infusion (CANCELED) at 25 mL/hr, intravenous, CONTINUOUS, Starting on Tue01/26/12 at 1015, Until Tue01/26/12 at 1414, Routine, Pre-Op DOS Rx Approved 1023 (New Bag - Prov ider: Magalis Nicholas RN) PRN Medication Order 01/24/2012 01/25/2012 01/26/2012 HYDROmorphone (DILAUDID) tablet 2 mg (COMPLETED) 2 mg, oral, PRN, 2 doses, Starting on Tue01/26/12 at 1410, Until Tue01/26/12 at 1741, Pain, Routine, Recovery (only) 1719 (Given - Provid er: Austin Mancilla RN)1741 (Given - Provider: Austin Mancilla RN) ondansetron (ZOFRAN-ODT) disintegrating tablet 4 mg (CANCELED) 4 mg, oral, EVERY 4 HOURS PRN, Starting on Tue01/26/12 at 1716, Until Tue01/26/12 at 2254, Nausea, Routine 1723 (Given - Provid er: Austin Mancilla RN) documented in this encounter Orders Medications Ordered That Rohan ht Not Have Been Administered Count Last Ordered Date First Ordered Date atropine 0.1 mg/mL 10 mL syringe 0.5 mg 1 0 01/26/2012 diphenhydrAMINE (BENADRYL) i njection 6.25 mg 1 01/26/2012 fentanyl citrate (PF) 50 mcg /mL injection 25-100 mcg 1 01/26/2012 hydrocodone-acetaminophen (L ORTAB;VICODIN) 5-500 mg per tablet 1-2 Tab 1 01/26/2012 HYDROmorphone (DILAUDID) tablet 2-4 mg 1 ketorolac (TORADOL) injection 15 mg 1 01/25 lactated ringers (LR) infusion 1 01/26/2012 naloxone (NARCAN) injection 0.2 mg 1 2011 oxycodone (ROXICODONE) immed iate release tablet 5 mg 1 01/26/2012 oxycodone-acetaminophen (PER COCET) 5-325 mg per tablet 1-2 Tab 1 01/26/2012 Nursing Count Last Ordered Date First Orde red Date INSERT PERIPHERAL IV 1 01/26/2012 Discharge Count Last Ordered Date First Orde red Date DISCHARGE PATIENT 1 01/26/2012 documented in this encounter Care Teams Explosive Ordnance Disposal Specialist Relationship Specialty Start Date End Date Monique Gonzalez PA [address] [place] [id number] PCP - General 11/25/11 09/16/14 documented as of this encounter
--- OUTSIDE RECORDS SUMMARY | 2024-10-25 15:49 | XMS_ITS | Encounter Summary ---
Author Organization [facility] Address [address] [place] [address] Care Team Providers Care Software Reverse Engineer Name Role Phone Monique Gonzalez Primary Care Provider [phone] Reason for Visit * Reason Onset Date Comments Other 02/13/2014 Encounter Details Date Type Department Care Team (Late st Contact Info) Description 02/13/2014 Telephone [facility] Dermatology 3rd Floor [facility] [address], [place] [id number] Erika Castle MD Other Social History Tobacco Use Types Packs/Day Years Used Date Smoking Tobacco: Never Assessed Comments Unknown Sex and Gender Information Value Date Recorded Sex Assigned at Not on file Legal Sex Female 18:30 EST Gender Identity Not on file Sexual Orientation Not on file documented as of this encounter Miscellaneous Notes * Telephone Encounter - Leonard Sánchez IV - 02/14/2014 1119 EDT Received information. Fax given to Dr. Castle * Telephone Encounter - Leonard Sánchez IV - 02/13/2014 1323 EDT Would like patient to be part of the [place]. Will send over later today. documented in this encounter Plan of Treatment Not on file documented as of this encounter Visit Diagnoses Not on filedocumented in this encounter Care Teams Software Reverse Engineer Relationship Specialty Start Date End Date Monique Gonzalez PA [address] [place] [address] PCP - General 11/25/11 09/16/14 documented as of this encounter
--- OUTSIDE RECORDS SUMMARY | 2024-10-25 15:49 | XMS_ITS | Encounter Summary ---
Author Organization [facility] Address [address] [place] [address] Care Team Providers Care Carbon Setter Name Role Phone Tayler Gutiérrez MD Primary Care Provider + Reason for Visit * Reason Comments Knee Pain right Encounter Details Date Type Department Care Team (Late st Contact Info) Description 09/17/2014 10:00 EST Office Visit [facility] Sports Medicine Program - [address] [place], [place] [phone] Brendan Kraft Right anterior knee pain (Primary Dx) Discharge Disposition: Auto Discharge Social [...] - Inhaled Oxygen Concentration - - Weight 59 kg (130 lb) 09/17/2014 1028 EST Height 162.6 cm (5' 4) 09/17/2014 1028 EST Body Mass Index 22.31 09/17/2014 1028 EST documented in this encounter Discharge Diagnoses Diagnosis 719.46 JOINT PAIN-L/LEG[ICD-9-CM] V71.89 OBSERVATION FOR OTHER SPECIFIED SUSPECTED CONDITIONS[ICD-9-CM] documented in this encounter Discharge Disposition Disposition Code Departure Means Destination Auto Discharge documented in this encounter Progress Notes * Brendan Kraft, CUATE - 09/17/2014 1049 EST PROBLEM: Right knee pain. SUBJECTIVE: The patient has always had problems with this right knee, mostly patellofemoral in nature. She did undergo lateral release in 2003, which helped to a degree, but her continuing running activities are continuing to cause exacerbation, popping and catching and increasing pain. 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 She notes intolerance to narcotic pain medication. See intake sheet for remaining review of systems and past medical history. OBJECTIVE: The patient is alert, oriented x3, no obvious distress. Eyes equal, react to light. No breathing difficulties. She is 5 feet 4 inches, 130 pounds. Exam of the knee reveals no active effusion. There are the surgical scars from her previous procedure. Range of motion is from 0 to 130 degrees flexion with some increasing pain on end flexion and upon returning to full extension there is catching and increased apprehension noted. She is stable to valgus varus stressors and to anterior drawer and Janice. No joint line tenderness, no exacerbation of Jm testing. X-rays are obtained and visualized, shows no obvious bony abnormalities other than the evidence of previous surgery. ASSESSMENT: Right anterior knee pain. 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 She really needs to start considering activity modification to avoid stressors that are aggravating this, but due to the degree of disability it is creating, I would like to obtain an MRI to better define any potential internal derangement and have her followed up with one of the knee surgeons after the imaging studies. In the meantime, I have encouraged her to go back to doing her PT exercises,which she is well versed on, in hopes that this can minimize her symptoms as well. The patient is seen at a time Dr Garcia is in clinic and available for consultation. documented in this encounter Plan of Treatment Not on file documented as of this encounter Visit Diagnoses Diagnosis Right anterior knee pain- Primary Pain in joint, lower leg documented in this encounter Historical Medications * This list may reflect changes made after this encounter. ibuprofen (MOTRIN) 200 mg tablet Take 200 mg by mouth as needed for Pain. 01/01/2016 added in this encounter Care Teams Carbon Setter Relationship Specialty Start Date End Date Tayler Gutiérrez MD [address] [place] [address] PCP - General 09/17/14 12/18/17 documented as of this encounter
--- OUTSIDE RECORDS SUMMARY | 2024-10-25 15:49 | XMS_ITS | Encounter Summary ---
Author Organization [facility] Address [address] [place] [address] Care Team Providers Care Pediatric Ophthalmologist Name Role Phone Irais MancillaC Primary Care Provider Encounter Details Date Type Department Care Team (Latest Contact Info) Description 04/15/2009 15:41 EDT - 04/15/2009 15:42 EDT Hospital Encounter [facility] - Other [address] [place] [address] Desirae Healy PA [phone] [place], [place] [phone] Discharge Disposition: Home or Self Care Social History Tobacco Use Types Packs/Day Years Used Date Smoking Tobacco: Never Assessed Comments Unknown Sex and Gender Information Value Date Recorded Sex Assigned at Not on file Legal Sex Female 18:30 EST Gender Identity Not on file Sexual Orientation Not on file documented as of this encounter Discharge Disposition Disposition Code Departure Means Destination Home or Self Care documented in this encounter Plan of Treatment Not on file documented as of this encounter Procedures Procedure Name Priority Date/Time Associated Diagnosis Comments CYTOPATHOLOGY Routine 06/12/2009 0:00 EDT documented in this encounter Results * CYTOPATHOLOGY (06/12/2009 0:00 EDT) Pathology Report: CYTOPATHOLOGY REPORT ? Reports generated via electronic interface contain original data; ? however they are lacking the format of the original report. ? Caution should be taken when reading/interpreti ng unformatted reports. ? Name: ? JEROME ROSS ? Accession #: ? [id number] ? : ? 1985 (Age: 24) ??F ?Collect Date: ? 06/12/2009 ? Location: ? [facility] ? Receive Date: ? 06/13/2009 ? Provider: ?KATH JIN SUPERVISOR [employer]ER [employer]ARM ? Copy to: ? Specimen/Source: ?Pap Test, Cervix/Endocervix, ThinPrep Imaging System ? with manual evaluation ? Last Menstrual Period: ? 06/30/09 ? Hormonal/Contracep tive Status: ? Oral contraceptives ? Previous Gynecologic Pathology: ? ASC-US ? NIKKO II ? Treatment History: ? LEEP ? Colposcopy: 02/08 ? Other: ? HPVA - HPV testing requested if ASC-US on the current ThinPrep Pap test. ? SPECIMEN ADEQUACY ? Unsatisfactory for Evaluation, ? - insufficient numbers of squamous epithelial cells (less than 10% of expected ?? cellularity) ? - sample preparation compromised by excessive blood ? GENERAL CATEGORIZATION ? Specimen processed and examined, but unsatisfactory for evaluation of ? epithelial abnormality. ? Recommend repeat Pap test or further follow up, as clinically indicated. ? Document reviewed and electronically signed by: ? Ankita Andrew, CT(ASCP) ? Report Date: ??06/24/2009 11:37 ? End of Report ? [facility] 06/12/2009 06/13/2009 us Kath Vazquez CHAIR TRIMMER PATHOLOGY ORDERABLES Final Resu lt [facility] [address] [place] [address] documented in this encounter Visit Diagnoses Not on filedocumented in this encounter Care Teams Pediatric Ophthalmologist Relationship Specialty Start Date End Date Irais Mancilla PA-C [address] [place] [phone] PCP - General 02/04/09 08/20/09 documented as of this encounter
--- OUTSIDE RECORDS SUMMARY | 2024-10-25 15:49 | XMS_ITS | Encounter Summary ---
Author Organization [facility] Address [address] [place] [address] Care Team Providers Care Exhibits Curator Name Role Phone Tayler Gutiérrez MD Primary Care Provider + Rebekah Greco NP Primary Care Provider [phone] Reason for Visit * Reason Onset Date Comments Knee Pain 09/17/2014 Encounter Details Date Type Department Care Team (Late st Contact Info) Description 09/17/2014 Orders Only [facility] Sports Medicine Program - [address] [place], [place] [phone] Brendan Kraft Right knee pain (Primary Dx) Social History Tobacco Use Types Packs/Day Years Used Date Smoking Tobacco: Never Assessed Interpersonal Safety Answer Date Record ed Physically Hurt Never 05/18/2020 Verbally Threaten Not on file 05/18/2020 Comments Unknown Sex and Gender Information Value Date Recorded Sex Assigned at Not on file Legal Sex Female 18:30 EST Gender Identity Not on file Sexual Orientation Not on file documented as of this encounter Plan of Treatment Not on file documented as of this encounter Visit Diagnoses Diagnosis Right knee pain- Primary Pain in joint, lower leg documented in this encounter Care Teams Exhibits Curator Relationship Specialty Start Date End Date Tayler Gutiérrez MD [address] [place] [address] PCP - General 09/17/14 12/18/17 Rebekah Greco NP [address] [place] [address] PCP - General 12/19/17 documented as of this encounter
--- OUTSIDE RECORDS SUMMARY | 2024-10-25 15:49 | XMS_ITS | Encounter Summary ---
Author Organization [facility] Address [address] [place] [address] Care Team Providers Care Casting Tester Name Role Phone Monique Gonzalez Primary Care Provider [phone] Encounter Details Date Type Department Care Team (Late st Contact Info) Description 12/29/2011 Abstract [facility] Foot & Ankle Program - [address] [phone] Willard Lo DPM [address] [place] [address] Social History Tobacco Use Types Packs/Day Years [...] on filedocumented in this encounter Care Teams Casting Tester Relationship Specialty Start Date End Date Monique Gonzalez PA [address] [place] [address] PCP - General 11/25/11 09/16/14 documented as of this encounter
--- OUTSIDE RECORDS SUMMARY | 2024-10-25 15:49 | XMS_ITS | Encounter Summary ---
Author Organization [facility] Address [address] [place] [address] Care Team Providers Care Tower Hoist Operator Name Role Phone Unavailable Primary Care Provider Unavailabl e Encounter Details Date Type Department Care Team (Latest Contact Info) Description 07/10/2008 22:22 EDT Hospital Encounter [facility] - Other [address] [place] [address] Desirae Healy PA [phone] [place] [address] Discharge Disposition: Home or Self Care Social [...]
--- OUTSIDE RECORDS SUMMARY | 2024-10-25 15:49 | XMS_ITS | Encounter Summary ---
Author Organization [facility] Address [address] [place] [address] Care Team Providers Care Software Integration Developer Name Role Phone Bailey Swartz MD Primary Care Provider [phone] Encounter Details Date Type Department Care Team (Late st Contact Info) Description 05/27/2010 Results Only [facility] [address] [place], [place] [address] Kath Vazquez, MATERIALS SCHEDULER [address] [place] [address] Social History Tobacco Use Types Packs/Day Years [...] Priority Date/Time Associated Diagnosis Comments CYTOPATHOLOGY Routine 05/27/2010 0:00 EDT documented in this encounter Results * CYTOPATHOLOGY (05/27/2010 0:00 EDT) Pathology Report: CYTOPATHOLOGY REPORT ? Reports generated via electronic interface contain original data; ? however they are lacking the format of the original report. ? Caution should be taken when reading/interpreti ng unformatted reports. ? Name: ? JEROME ROSS ? Accession #: ? [id number] ? : ? 1985 (Age: 25) ??F ?Collect Date: ? 05/27/2010 ? Location: ? [facility] ? Receive Date: ? 05/27/2010 ? Provider: ?KATH JIN WEATHERCASTER ? Copy to: ? Specimen/Source: ?Pap Test, Cervix/Endocervix, ThinPrep Imaging System ? with manual evaluation ? Last Menstrual Period: ? 7/28/10 ? Hormonal/Contracep tive Status: ? Oral contraceptives ? Treatment History: ? LEEP ? Other: ? HPVA - HPV testing requested if ASC-US on the current ThinPrep Pap test. ? SPECIMEN ADEQUACY ? Satisfactory for Evaluation ? - transformation zone component present ? GENERAL CATEGORIZATION ? Negative for Intraepithelial Lesion or Malignancy ? Document reviewed and electronically signed by: ? Phyllis Medel, SCT(ASCP) ? Report Date: ??06/01/2010 15:25 ? End of Report ? [facility] 05/27/2010 05/27/2010 us Kath Vazquez MATERIALS SCHEDULER PATHOLOGY ORDERABLES Final Resu lt [facility] [address] [place] [address] documented in this encounter Visit Diagnoses Not on filedocumented in this encounter Care Teams Software Integration Developer Relationship Specialty Start Date End Date Sheridan, Bailey C, MD [address] [place] [phone] PCP - General 08/21/09 2 documented as of this encounter
--- OUTSIDE RECORDS SUMMARY | 2024-10-25 15:49 | XMS_ITS | Encounter Summary ---
Author Organization [facility] Address [address] [place] [address] Care Team Providers Care Wildlife Conservationist Name Role Phone Monique Gonzalez Primary Care Provider [phone] Encounter Details Date Type Department Care Team (Latest Contact Info) Description 07/09/2014 11:44 EDT - 07/09/2014 11:46 EDT Hospital Encounter [address] [address] Sybil Sanchez PA [address] [address] Discharge Disposition: Home or Self Care Social History Tobacco Use Types Packs/Day Years Used Date Smoking Tobacco: Never Assessed Comments Unknown Sex and Gender Information Value Date Recorded Sex Assigned at Not on file Legal Sex Female 18:30 EST Gender Identity Not on file Sexual Orientation Not on file documented as of this encounter Discharge Diagnoses Diagnosis V72.31 ROUTINE GYNECOLOGICAL EXAMINATION[ICD-9-CM] 622.12 MODERATE DYSPLASIA OF CERVIX[ICD-9-CM] documented in this encounter Medications at Time [...] on filedocumented in this encounter Care Teams Wildlife Conservationist Relationship Specialty Start Date End Date Monique Gonzalez PA [address] [place] [address] PCP - General 11/25/11 09/16/14 documented as of this encounter
--- OUTSIDE RECORDS SUMMARY | 2024-10-25 15:49 | XMS_ITS | Encounter Summary ---
Author Organization [facility] Address [address] [place] [address] Care Team Providers Care Senior Graphic Designer Name Role Phone Bailey Swartz MD Primary Care Provider Irais Mancilla PA-C Primary Care Provider Encounter Details Date Type Department Care Team (Late st Contact Info) Description 11/07/2007 Results Only [facility] - [facility] conversion [address] [place] [address] Latoya Sánchez, [facility] [address] [place] [address] Social History Tobacco Use Types Packs/Day Years [...] Procedure Name Priority Date/Time Associated Diagnosis Comments HPV DETECTION, HIGH RISK TYPES Routine 11/07/2007 7:59 EST CYTOPATHOLOGY Routine 11/07/2007 0:00 EST documented in this encounter Results * HUMAN PAPILLOMA VIRUS DNA TEST (11/07/2007 7:59 EST) Specimen Description Cervix, ThinPrep vial [facility] Result Positive for one or more of HPV types 16,18,31,33,35 ,39,45,51,52,5 6,58,59, or 68. These high/intermedi ate risk HPV types are associated with dysplasia and some cervical cancers. [facility] Report Status Final [id number] [facility] 11/07/2007 7:59 EST 11/15/2007 7:59 EST Latoya Sánchez SONG LYRICIST MICROBIOLOGY - GENERAL CAITIE SQUIRES Final Result [facility] [address] [place] [address] * CYTOPATHOLOGY (11/07/2007 0:00 EST) Pathology Report: CYTOPATHOLOGY REPORT Reports generated via electronic interface contain original data; however they are lacking the format of the original report. Caution should be taken when reading/interpreti ng unformatted reports. Name: ? JEROME ROSS ? Accession #: ? [id number] : ? 1985 (Age: 22) ??F ?Collect Date: ? 11/07/2007 Location: ? [facility] ? Receive Date: ? 11/08/2007 Provider: ?LATOYA SÁNCHEZ SONG LYRICIST Copy to: ? Specimen/Source: ?ThinPrep Pap Test, Cervix/Endocervix, processed on DFMSim ThinPrep Imaging System, with manual evaluation Last Menstrual Period: ? 09/04/07 Hormonal/Contracep tive Status: ? Yes: Seasonale Other: ? HPVA - HPV testing requested if ASC-US on the current ThinPrep Pap test. ? SPECIMEN ADEQUACY ? Satisfactory for Evaluation - transformation zone component present GENERAL CATEGORIZATION ? Epithelial Cell Abnormality INTERPRETATION ? Squamous Cell Abnormality - Atypical squamous cells, undetermined significance (ASC-US). EDUCATIONAL NOTES/RECOMMENDATI ONS ? [facility] recommends following the 2006 Consensus Guidelines for the Management of Women with Abnormal Cervical Cancer Screening Tests (JLGTD, 2007;11(4):201-222 ). ??Consensus guidelines are available online at www.ASCCP.org. ? Document reviewed and electronically signed by: ? Janis Luis MD PhD ? Report Date: ??11/14/2007 12:41 End of Report [facility] 11/07/2007 11/08/2007 us Latoya Sánchez SONG LYRICIST PATHOLOGY ORDERABLES Final Result Performing Organization Address [facility]/State/[facility] Co de Phone Number [facility] [address] [place] [address] documented in this encounter Visit Diagnoses Not on filedocumented in this encounter Care Teams Senior Graphic Designer Relationship Specialty Start Date End Date Bailey Swartz MD [address] [place] [phone] PCP - General 08/21/09 11/24/11 Irais Mancilla, PATrayC [address] [place] [address] PCP - General 02/04/09 08/20/09 documented as of this encounter
--- OUTSIDE RECORDS SUMMARY | 2024-10-25 15:49 | XMS_ITS | Encounter Summary ---
Author Organization [facility] Address [address] [place] [address] Care Team Providers Care Armature Varnisher Name Role Phone Bailey Swartz MD Primary Care Provider [phone] Encounter Details Date Type Department Care Team (Late st Contact Info) Description 05/27/2010 16:45 EDT - 05/27/2010 16:46 EDT Hospital Encounter [facility] - Other [address] [place] [address] Kath Vazquez, SITE LEASING AGENT [address] [place] [phone] Discharge Disposition: Home or Self Care Social [...] on filedocumented in this encounter Care Teams Armature Varnisher Relationship Specialty Start Date End Date Bailey Swartz MD [address] [place] [phone] PCP - General 08/21/09 11/24/11 documented as of this encounter
--- OUTSIDE RECORDS SUMMARY | 2024-10-25 15:49 | XMS_ITS | Encounter Summary ---
Author Organization [facility] Address [address] [place] [address] Care Team Providers Care Pig Breeder Name Role Phone Tayler Gutiérrez MD Primary Care Provider + Reason for Visit * Reason Onset Date Comments Appointment Related 09/30/2014 Encounter Details Date Type Department Care Team ([facility] Contact Info) Description 09/30/2014 Telephone [facility] Sports Medicine Program - [address] [place], [place] [phone] Brendan Kraft Appointment Related Social History Tobacco Use Types Packs/Day Years Used Date Smoking Tobacco: Never Assessed Comments Unknown Sex and Gender Information Value Date Recorded Sex Assigned at Not on file Legal Sex Female 18:30 EST Gender Identity Not on file Sexual Orientation Not on file documented as of this encounter Miscellaneous Notes * Telephone Encounter - Thierry Cooley Jr. - 09/30/2014 1104 EST Pt notified for her MRI (10/19@3:45 pm check in [facility]) and follow up with Dr. Hand (10/23@9:00 am). documented in this encounter Plan of Treatment Not on file documented as of this encounter Visit Diagnoses Not on filedocumented in this encounter Care Teams Pig Breeder Relationship Specialty Start Date End Date Tayler Gutiérrez MD [address] [place] [address] PCP - General 09/17/14 12/18/17 documented as of this encounter
--- OUTSIDE RECORDS SUMMARY | 2024-10-25 15:49 | XMS_ITS | Encounter Summary ---
Author Organization [facility] Address [address] [place] [address] Care Team Providers Care Hot Strip Mill Supervisor Name Role Phone Bailey Swartz MD Primary Care Provider [phone] Irais Mancilla PA-C Primary Care Provider Encounter Details Date Type Department Care Team (Late st Contact Info) Description 02/19/2008 Results Only [facility] - Map conversion [address] [place] [address] Desirae Healy PA [phone] [place], [place] [phone] Social History Tobacco Use Types Packs/Day Years [...] Procedure Name Priority Date/Time Associated Diagnosis Comments CULTURE FOR STAPHYLOCOCCUS COAGULASE POSITIVE Routine 02/19/2008 15:30 EDT documented in this encounter Results * CULTURE FOR STAPHYLOCOCCUS COAGULASE POSITIVE (02/19/2008 15:30 EDT) Specimen Description Face Specimen submitted on a swab [facility] Result No Staphylococcus coagulase positive isolated [facility] Report Status Final [id number] [facility] 02/19/2008 15:3 0 EDT 02/20/2008 14:40 EDT us Desirae CLEMENTS MICROBIOLOGY - GENERAL ORDERABLE S Final Result [facility] [address] [place] [address] documented in this encounter Visit Diagnoses Not on filedocumented in this encounter Care Teams Hot Strip Mill Supervisor Relationship Specialty Start Date End Date Bailey Swartz MD [address] [place] [phone] PCP - General 08/21/09 11/24/11 Irais Mancilla PA-C [address] [place] [address] PCP - General 02/04/09 08/20/09 documented as of this encounter
--- OUTSIDE RECORDS SUMMARY | 2024-10-25 15:49 | XMS_ITS | Encounter Summary ---
Author Organization [facility] Address [address] [place] [address] Care Team Providers Care Manager Trade Marketing Name Role Phone Unavailable Primary Care Provider Unavailabl e Encounter Details Date Type Department Care Team (Latest Contact Info) Description 07/03/2007 8:46 EDT - 07/03/2007 11:59 EDT Hospital Encounter [facility] - Other [address] [place] [address] Kristi Sánchez, [facility] [address] [place] [address] Discharge Disposition: Home or Self Care Social [...]
--- OUTSIDE RECORDS SUMMARY | 2024-10-25 15:49 | XMS_ITS | Encounter Summary ---
Author Organization [facility] Address [address] [place] [address] Care Team Providers Care Plastic Card Grader Cardroom Name Role Phone Bailey Swartz MD Primary Care Provider Irais Mancilla PA-C Primary Care Provider Encounter Details Date Type Department Care Team (Late st Contact Info) Description 08/09/2006 Results Only [facility] - Map conversion [address] [place] [address] Serene Sanchez MD [facility] [address] [address] Social History Tobacco Use Types Packs/Day Years [...] Date/Time Associated Diagnosis Comments SURGICAL PATHOLOGY Routine 08/09/2006 0:00 EDT documented in this encounter Results * SURGICAL PATHOLOGY (08/09/2006 0:00 EDT) Pathology Report: SURGICAL PATHOLOGY REPORT Reports generated via electronic interface contain original data; however they are lacking the format of the original report. Caution should be taken when reading/interpreti ng unformatted reports. Name: ? JEROME ROSS ? Accession #: ? [id number] ? : ? 1985 (Age: 21) ??F ? Collect Date: ? 08/09/2006 ? Location: ? [facility] ? Receive Date: ? 08/10/2006 ? Provider: SERENE SANCHEZ MD Copy to: IRENA SMALL CAR FILLER ? Final Pathologic Diagnosis: ? Endocervix, curettage: - Fragments of benign endocervical tissue. ?? See comment. Comment: ? The previous cervical biopsy ([id number]) has been reviewed and the high grade squamous intraepithelial lesion (NIKKO II) seen in the biopsy specimen is not present in the current endocervical curettage. ??(Dr. Schroeder)/[facility] Document reviewed and electronically signed by: Hernando Martinez, [facility] Report ??Date: 08/15/2006 16:50 By the signature above, the attending physician certifies that he/she has personally conducted a gross and/or microscopic examination of the described specimens and rendered or confirmed the above diagnosis. Specimen(s) Received: ? ECC Clinical History: ? 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 Received in formalin labelled Ross and ROSALIE is 0.5 cc of blood-tinged mucus admixed with fragments of red-brown tissue. ??The specimen is submitted entirely in one cassette. (AIME Lorenzo)/mpl End of Report [facility] 08/09/2006 08/10/2006 9:5 8 EDT us Serene Gino Sanchez MD PATHOLOGY ORDERABLES F inal Result Performing Organization Address City/State/[facility] Co de Phone Number [facility] [address] [place] [address] documented in this encounter Visit Diagnoses Not on filedocumented in this encounter Care Teams Plastic Card Grader Cardroom Relationship Specialty Start Date End Date Bailey Swartz MD [address] [place] [phone] PCP - General 08/21/09 11/24/11 Irais Mancilla, PA-C [address] [place] [address] PCP - General 02/04/09 08/20/09 documented as of this encounter
--- OUTSIDE RECORDS SUMMARY | 2024-10-25 15:49 | XMS_ITS | Encounter Summary ---
Author Organization [facility] Address [address] [place] [address] Care Team Providers Care Restaurant General Manager Name Role Phone Monique Gonzalez Primary Care Provider [phone] Encounter Details Date Type Department Care Team (Late st Contact Info) Description 07/09/2014 Results Only [facility] Laboratory Services - [facility] ([facility]) [address] [place], [place] [address] Michael Sanchez PA [address] [address] Social History Tobacco Use Types Packs/Day Years [...] Diagnosis Comments PAP TEST- RESULT ONLY Routine 07/09/2014 0:00 EDT documented in this encounter Results * PAP TEST- RESULT ONLY (07/09/2014 0:00 EDT) Pathology Report: CYTOPATHOLOGY REPORT Reports generated via electronic interface contain original data; however they are lacking the format of the original report. Caution should be taken when reading/interpreti ng unformatted reports. Name: ? ROBLEDOJEROME Chand Je ? Accession #: ? [id number] : ? 1985 (Age: 29) ??F ?Collect Date: ? 07/09/2014 Location: ? [facility] ? Receive Date: ? 07/10/2014 Provider: ?MICHAEL CLEMENTS Copy to: ? Specimen/Source: ?Pap Test, Cervix/Endocervix, ThinPrep Imaging System with manual evaluation Last Menstrual Period: ? 06/16/14 Treatment History: ? LEEP: 12/2005 ? SPECIMEN ADEQUACY ? Satisfactory for Evaluation - transformation zone component absent GENERAL CATEGORIZATION ? Negative for Intraepithelial Lesion or Malignancy ? Document reviewed and electronically signed by: ? MICKY Kern(ASCP) ? Report Date: ??07/18/2014 07:39 End of Report [facility] 07/09/2014 07/10/2014 us Michael CLEMENTS PATHOLOGY ORDERABLES Irene yepez Result [facility] [address] [place] [address] documented in this encounter Visit Diagnoses Not on filedocumented in this encounter Care Teams Restaurant General Manager Relationship Specialty Start Date End Date Monique Gonzalez PA [address] [place] [address] PCP - General 11/25/11 09/16/14 documented as of this encounter
--- OUTSIDE RECORDS SUMMARY | 2024-10-25 15:49 | XMS_ITS | Encounter Summary ---
Author Organization [facility] Address [address] [place] [address] Care Team Providers Care Detasseling Crew Supervisor Name Role Phone Monique Gonzalez Primary Care Provider [phone] Encounter Details Date Type Department Care Team (Late st Contact Info) Description 02/02/2013 Results Only [facility]- [facility] [phone] Dean Stewart DPM [address] [place] [address] Social History Tobacco Use Types Packs/Day Years [...] on filedocumented in this encounter Care Teams Detasseling Crew Supervisor Relationship Specialty Start Date End Date Monique Gonzalez PA [address] [place] [address] PCP - General 11/25/11 09/16/14 documented as of this encounter
--- OUTSIDE RECORDS SUMMARY | 2024-10-25 15:49 | XMS_ITS | Encounter Summary ---
Author Organization [facility] Address [address] [place] [address] Care Team Providers Care Magician Helper Name Role Phone Monique Gonzalez Primary Care Provider [phone] Encounter Details Date Type Department Care Team (Latest Contact Info) Description 06/01/2012 7:49 EDT - 06/01/2012 7:55 EDT Hospital Encounter [address] [address] Sara Rhoades PA Discharge Disposition: Home or Self Care Social [...] on filedocumented in this encounter Care Teams Magician Helper Relationship Specialty Start Date End Date Monique Gonzalez PA [address] [place] [address] PCP - General 11/25/11 09/16/14 documented as of this encounter
--- OUTSIDE RECORDS SUMMARY | 2024-10-25 15:49 | XMS_ITS | Encounter Summary ---
Author Organization [facility] Address [address] [place] [address] Care Team Providers Care Strip Machine Operator Name Role Phone Monique Gonzalez Primary Care Provider [phone] Reason for Visit * Reason Comments Foot Pain Encounter Details Date Type Department Care Team (Late st Contact Info) Description 12/23/2011 9:00 EST Office Visit [facility] - [address] [address] Sean Linn MD [address] [place] [address] Plantar fascial fibromatosis (Primary Dx) Social History Tobacco Use Types [...] - Inhaled Oxygen Concentration - - Weight 63.5 kg (140 lb) 12/23/2011 0907 EST Height 162.6 cm (5' 4) 12/23/2011 0907 EST Body Mass Index 24.03 12/23/2011 0907 EST documented in this encounter Progress Notes * Sean Linn MD - 12/23/2011 09 EST NEW FOOT PAIN Chief Complaint Patient presents with ??? Foot Pain SUBJECTIVE: Jerome Ross comes in today as a new patient, complaining of right foot pain. She hasbeen diagnosed with a calcaneal stress fracture and it is felt that she also has plantar fasciitis.She has been put in a boot, which has been somewhat helpful. Her foot got worse in October and she has had pain even with driving. She has been told that she may have a second stress fracture in her c alcaneous. She has always been a runner, running 25 miles a week. She usually runs a couple of marathons a year. She has now had to stop running due to foot pain. Most bothersome pain is in bottom offoot. She often has pain when just lying in bed. 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 Description of pain includes: Character: Sharp, ache, throughout day. Location: Bottom of heel. Feels like she is walking on something sharp. Timing: Walking, sitting, driving, running. Severity: Severe. Past treatment for this issue: Walking boot, which does help with pain. Injection -- did not help. Physical therapy with no improvement NSAIDs. Jerome has been seeing Dr. Stewart for her foot complaints and has been looking into possible fasciectomy. She is here today for a second opinion. No past medical history on file. No past surgical history on file. Current Outpatient Prescriptions Medication Sig Dispense Refill ??? BUPROPION HCL (WELLBUTRIN ORAL) Take by mouth. ??? UNABLE TO FIND Med Name: sulfameth for acne ??? NORETH A-ET ESTRA/FE FUMARATE (LO LOESTRIN FE ORAL) Take by mouth. No Known Allergies REVIEW OF SYSTEMS: Documented on the patient intake form. These were reviewed by me. Pertinent positives mentioned above. OBJECTIVE: Patient is in no acute distress, appears normal, mood and affect appropriate, alert and oriented x3. Good historian. Standing alignment: Good arch. Heels are in neutral. Can rock back on heels and stand on tiptoes. Right Foot: Skin: Intact, no lesions. Pulses: Good. Sensation: Intact. Tenderness over plantar fascia. No tenderness over FHL. No Achilles tenderness. Pain with compression of calcaneous. No peroneal tenderness. Excellent hindfoot motion. Strength: Intact. ROM: Great flexibility of calf. No significant tightness of FHL. Left Foot: Skin: Intact, no lesions. Pulses: Good. Sensation: Intact. Strength: Intact. ROM: No gastroc contracture -- good flexibility of calf. IMAGING: Bone scan July 2011: Increased uptake in right medial heel. MRI scan November 15, 2011: Ligaments and tendons look good. I do not see evidence of a distinct stress fracture in the calcaneus. There is a small line of T1 images on the sagital slices but there isno corresponding signal change on the T2 images. ASSESSMENT AND PLAN: Diagnosis: Plantar fasciitis right foot. Jerome has ongoing right heel pain and is here for a second opinion. She is scheduled for a plantarfascia release in January. I am not convinced she has a stress fracture in the heel. I see no sign of inflammation on MRI. I do, however, think that she has plantar fasciitis, despite the fact that she has good flexibility of her gastroc. Everything else in her foot and ankle looks okay on MRI. Plantar fascia release is a possible option for her. I did describe for her the possible risks associated with this procedure. I do think there is a good chance this procedure could help her and thatthe chances are high that eventually she would be able to get back to running. She is not doing herself any harm if she decides to not have surgery and gives this more time to heal by herself. Non-surgical options are to really work on calf flexibility to maintain her plantar fascia. Stretching should be repeated 5 or 6 times a day on a daily basis. Follow up PRN. Emil Canales, am scribing for Dr. Sean Linn, while he is personally performing the service. documented in this encounter Plan of Treatment Not on file documented as of this encounter Visit Diagnoses Diagnosis Plantar fascial fibromatosis- Primary documented in this encounter Historical Medications * This list may reflect changes made after this encounter. NORETH A-ET ESTRA/FE FUMARATE (LO LOESTRIN FE ORAL) Take by mouth. 01/01/2016 UNABLE TO FIND Med Name: sulfameth for acne 01/24/2012 BUPROPION HCL (WELLBUTRIN ORAL) Take 150 mg by mouth daily. 01/01/2016 added in this encounter Care Teams Strip Machine Operator Relationship Specialty Start Date End Date Monique Gonzalez PA [address] [facility] [place] [address] PCP - General 11/25/11 09/16/14 documented as of this encounter
--- OUTSIDE RECORDS SUMMARY | 2024-10-25 15:49 | XMS_ITS | Encounter Summary ---
Author Organization [facility] Address [address] [place] [address] Care Team Providers Care Cupola Charger Name Role Phone Monique Gonzalez Primary Care Provider [phone] Encounter Details Date Type Department Care Team (Late st Contact Info) Description 01/24/2013 Results Only Imaging [facility]- [facility] [phone] Dean Stewart DPM [address] [place] [address] Social History Tobacco Use Types Packs/Day Years [...] on filedocumented in this encounter Care Teams Cupola Charger Relationship Specialty Start Date End Date Monique Gonzalez PA [address] [place] [address] PCP - General 11/25/11 09/16/14 documented as of this encounter
--- OUTSIDE RECORDS SUMMARY | 2024-10-25 15:49 | XMS_ITS | Encounter Summary ---
Author Organization [facility] Address [address] [place] [address] Care Team Providers Care Subject Scientific Research Name Role Phone Monique Gonzalez Primary Care Provider [phone] Encounter Details Date Type Department Care Team (Late st Contact Info) Description 09/18/2013 Results Only [facility] [phone] Emmanuelle Ochoa PA [address],[facility] [address] [place] [address] Social History Tobacco Use Types Packs/Day Years Used Date Smoking Tobacco: Never Assessed Comments Unknown Sex and Gender Information Value Date Recorded Sex Assigned at Not on file Legal Sex Female 18:30 EST Gender Identity Not on file Sexual Orientation Not on file documented as of this encounter Plan of Treatment Pending Results Name Type Priority Associated Diagnoses Date /Time HEMAGRAM AND DIFFERENTIAL Lab Routine 09/18/2013 15:30 EST documented as of this encounter Procedures Procedure Name Priority Date/Time Associated Diagnosis Comments DIFFERENTIAL Routine 09/18/2013 15:30 EST COMPLETE BLOOD COUNT Routine 09/18/2013 15:30 EST documented in this encounter Results * DIFFERENTIAL (09/18/2013 15:30 EST) % Neutrophils 55.1 45.5 - 79.7 % [facility] % Lymphocytes 33.3 15.0 - 46.8 % [facility] % Monocytes 7.9 1.8 - 12.0 % [facility] % Eosinophils 3.5 0.6 - 6.9 % [facility] % Basophils 0.2 0.2 - 1.4 % [facility] ABS Neutrophils 5.26 2.20 - 8.85 K/cmm [facility] ABS Lymphs 3.18 1.09 - 3.30 K/cmm [facility] ABS Monocytes 0.75 0.1 - 0.8 K/cmm [facility] ABS Eosinophils 0.34 0.03 - 0.61 K/cmm [facility] ABS Basophils 0.02 0.01 - 0.11 K/cmm [facility] Type of Diff: Automated [facility] 09/18/2013 15:3 0 EST 09/18/2013 17:21 EST Emmanuelle CLEMENTS HEMATOLOGY & PF4 ORDERABLES Final Result Performing Organization Address City/[facility] Co de Phone Number [facility] [address] [place] [address] * HEMAGRAM (09/18/2013 15:30 EST) WBC 9.55 4.0 - 12.4 K/cmm [facility] RBC 4.06 3.86 - 5.04 M/cmm [facility] Hemoglobin 12.8 11.6 - 15.2 gm/dl [facility] HCT 38.4 34.9 - 44.4 % [facility] MCV 95 81 - 98 fl [facility] MCH 31.6 26.7 - 33.3 pg [facility] MCHC 33.4 32.1 - 35.9 gm/dl [facility] PLT 207 141 - 320 K/cmm [facility] RDW-CV 13.4 11.7 - 14.6 % [facility] 09/18/2013 15:3 0 EST 09/18/2013 17:21 EST Emmanuelle CLEMENTS HEMATOLOGY & PF4 ORDERABLES Final Result Performing Organization Address City/[facility]/ZIP Co de Phone Number [facility] [address] [place] [address] documented in this encounter Visit Diagnoses Not on filedocumented in this encounter Care Teams Subject Scientific Research Relationship Specialty Start Date End Date Monique Gonzalez PA [address] [place] [address] PCP - General 11/25/11 09/16/14 documented as of this encounter
--- OUTSIDE RECORDS SUMMARY | 2024-10-25 15:49 | XMS_ITS | Encounter Summary ---
Author Organization [facility] Address [address] [place] [address] Care Team Providers Care Mental Tester Name Role Phone Monique Gonzalez Primary Care Provider [phone] Tayler Gutiérrez MD Primary Care Provider + Rebekah Greco NP Primary Care Provider [phone] Reason for Referral * Radiology Services (Routine) - Closed Specialty Diagnoses / Procedures Referred By Contac t Referred To Contact Diagnoses Right knee pain Procedures KNEES 3 VIEWS Brendan Kraft Referral ID Status Reason Start Date Expiration Date Visits Re quested Visits Authorized [id number] Closed 09/16/2014 1 1 * Radiology Services (Routine) - Closed Specialty Diagnoses / Procedures Referred By Contac t Referred To Contact Diagnoses Right knee pain Procedures KNEE 4 OR MORE VIEWS Brendan Kraft Referral ID Status Reason Start Date Expiration Date Visits Re quested Visits Authorized [id number] Closed 09/16/2014 1 1 Reason for Visit * Reason Onset Date Comments Knee Pain 09/16/2014 Encounter Details Date Type Department Care Team (Late st Contact Info) Description 09/16/2014 Orders Only [facility] Sports Medicine Program - [address] [place], [place] [id number] Brendan Kraft Right knee pain (Primary Dx) [...] Procedure Name Priority Date/Time Associated Diagnosis Comments KNEE 4 OR MORE VIEWS Routine 09/17/2014 10:25 EST Right knee pain KNEES 3 VIEWS Routine 09/17/2014 10:25 EST Right knee pain documented in this encounter Results * KNEES 3 VIEWS (09/17/2014 10:25 EST) Anatomical Region Laterality Modality Other 09/17/2014 10:2 5 EST 09/17/2014 11:59 EST Narrative 09/17/2014 11:59 EST KNEES 3 VIEWS, KNEE 4 OR MORE VIEWS ??09/17/2014 10:25 AM Signs and Symptoms/Comments: ?? 719.46-Pain in joint, lower enn-IYI-2-CM; right knee pain, bony abnormality. ??Per Ed. Abena CLEMENTS. Image Left knee 3views for comparison. Changed this exam from right 3views to Left 3views. [facility] 09-17-14 . Bilateral knees findings: Alignment is anatomic. No bony abnormalities are seen in either knees. Procedure Note 09/17/2014 KNEES 3 VIEWS, KNEE 4 OR MORE VIEWS 09/17/2014 10:25 AM Signs and Symptoms/Comments: 719.46-Pain in joint, lower yyx-XVL-4-CM; right knee pain, bony abnormality. Per Ed. Abena PA. Image Left knee 3views for comparison. Changed this exam from right 3views to Left 3views. [facility] 09-17-14 . Bilateral knees findings: Alignment is anatomic. No bony abnormalities are seen in either knees. Brendan Kraft IM DIAGNOSTIC IMAGING ORDERABLE S Final Result * KNEE 4 OR MORE VIEWS (09/17/2014 10:25 EST) Anatomical Region Laterality Modality Other 09/17/2014 10:2 5 EST 09/17/2014 11:59 EST Narrative 09/17/2014 11:59 EST KNEES 3 VIEWS, KNEE 4 OR MORE VIEWS ??09/17/2014 10:25 AM Signs and Symptoms/Comments: ?? 719.46-Pain in joint, lower zwo-MTW-5-CM; right knee pain, bony abnormality. ??Per Ed. Abena CLEMENTS. Image Left knee 3views for comparison. Changed this exam from right 3views to Left 3views. [facility] 09-17-14 . Bilateral knees findings: Alignment is anatomic. No bony abnormalities are seen in either knees. Procedure Note 09/17/2014 KNEES 3 VIEWS, KNEE 4 OR MORE VIEWS 09/17/2014 10:25 AM Signs and Symptoms/Comments: 719.46-Pain in joint, lower woo-YLF-9-CM; right knee pain, bony abnormality. Per Ed. Abena CLEMENTS. Image Left knee 3views for comparison. Changed this exam from right 3views to Left 3views. [facility] 09-17-14 . Bilateral knees findings: Alignment is anatomic. No bony abnormalities are seen in either knees. Brendan Kraft IMG DIAGNOSTIC IMAGING ORDERABLE S Final Result documented in this encounter Visit Diagnoses Diagnosis Right knee pain- Primary Pain in joint, lower leg documented in this encounter Care Teams Mental Tester Relationship Specialty Start Date End Date Monique Gonzalez PA [address] [place] [address] PCP - General 11/25/11 09/16/14 Tayler Gutiérrez MD [address] [place] [address] PCP - General 09/17/14 12/18/17 Rebekah Greco NP [address] [place] [address] PCP - General 12/19/17 documented as of this encounter
--- OUTSIDE RECORDS SUMMARY | 2024-10-25 15:49 | XMS_ITS | Encounter Summary ---
Author Organization [facility] Address [address] [place] [address] Care Team Providers Care Broke Beater Operator Name Role Phone Bailey Swartz MD Primary Care Provider [phone] Encounter Details Date Type Department Care Team (Late st Contact Info) Description 06/17/2011 Results Only [facility] Laboratory Services - [facility] ([address] [phone] Cousins, STARR Manley Social History Tobacco Use Types Packs/Day Years [...] Diagnosis Comments PAP TEST- RESULT ONLY Routine 06/17/2011 0:00 EDT documented in this encounter Results * PAP TEST- RESULT ONLY (06/17/2011 0:00 EDT) Pathology Report: CYTOPATHOLOGY REPORT ? Reports generated via electronic interface contain original data; ? however they are lacking the format of the original report. ? Caution should be taken when reading/interpreti ng unformatted reports. ? Name: ? JEROME ROSS ? Accession #: ? [id number] ? : ? 1985 (Age: 26) ??F ?Collect Date: ? 06/17/2011 ? Location: ? [facility] ? Receive Date: ? 06/18/2011 ? Provider: ?LELO CLEEMNTS ? Copy to: ?EMMA BONDESEN PA ? Specimen/Source: ?Pap Test, Cervix/Endocervix, ThinPrep Imaging System ? with manual evaluation ? Last Menstrual Period: ? Hormonal/Contracep tive Status: ? Control Pills ? Treatment History: ? LEEP: 2006 ? SPECIMEN ADEQUACY ? Satisfactory for Evaluation ? - transformation zone component absent ? GENERAL CATEGORIZATION ? Negative for Intraepithelial Lesion or Malignancy ? Document reviewed and electronically signed by: ? Lynan Anatoly, [place](ASCP) ? Report Date: ??06/24/2011 13:56 ? End of Report ? [facility] 06/17/2011 06/18/2011 us Lelo CLEMENTS PATHOLOGY ORDERABLES Final R esult Performing Organization Address [facility]/State/ZIP Co de Phone Number [facility] [address] [place] [address] documented in this encounter Visit Diagnoses Not on filedocumented in this encounter Care Teams Broke Beater Operator Relationship Specialty Start Date End Date Bailey Swartz MD [address] [facility],[address] [address] PCP - General 08/21/09 11/24/11 documented as of this encounter
--- OUTSIDE RECORDS SUMMARY | 2024-10-25 15:49 | XMS_ITS | Encounter Summary ---
Author Organization [facility] Address [address] [place] [address] Care Team Providers Care Match Marker Name Role Phone Monique Gonzalez Primary Care Provider [phone] Reason for Visit * Reason Onset Date Comments Paperwork request 02/22/2014 status Encounter Details Date Type Department Care Team (Late st Contact Info) Description 02/22/2014 Telephone [facility] Cardiology - [address] [place] [address] Shirley Davenport Paperwork request (status) Social History Tobacco Use Types Packs/Day Years Used Date Smoking Tobacco: Never Assessed Comments Unknown Sex and Gender Information Value Date Recorded Sex Assigned at Not on file Legal Sex Female 18:30 EST Gender Identity Not on file Sexual Orientation Not on file documented as of this encounter Miscellaneous Notes * Telephone Encounter - Arsen Rodriguez - 02/22/2014 1542 EDT [place] call Radha to confirm status of form for event monitor faxed 02/19 by [facility] provider. documented in this encounter Plan of Treatment Not on file documented as of this encounter Visit Diagnoses Not on filedocumented in this encounter Care Teams Match Marker Relationship Specialty Start Date End Date Monique Gonzalez PA [address] [place] [address] PCP - General 11/25/11 09/16/14 documented as of this encounter
--- OUTSIDE RECORDS SUMMARY | 2024-10-25 15:49 | XMS_ITS | Encounter Summary ---
Author Organization [facility] Address [address] [place] [address] Care Team Providers Care Plant Guard Name Role Phone Bailey Swartz MD Primary Care Provider Irais Mancilla PA-C Primary Care Provider Encounter Details Date Type Department Care Team (Late st Contact Info) Description 12/12/2007 Results Only [facility] - Maple conversion [address] [place] [address] Wilber Sanchez MD [facility] [address] [address] Social History Tobacco Use Types [...] Date/Time Associated Diagnosis Comments SURGICAL PATHOLOGY Routine 12/12/2007 0:00 EST documented in this encounter Results * SURGICAL PATHOLOGY (12/12/2007 0:00 EST) Pathology Report: SURGICAL PATHOLOGY REPORT Reports generated via electronic interface contain original data; however they are lacking the format of the original report. Caution should be taken when reading/interpreti ng unformatted reports. Name: ? JEROME ROSS ? Accession #: ? [id number] ? : ? 1985 (Age: 22) ??F ? Collect Date: ? 12/12/2007 ? Location: ? [facility] ? Receive Date: ? 12/13/2007 ? Provider: WILBER SANCHEZ MD Copy to: ? Final Pathologic Diagnosis: A. ?Cervix, 12 o'clock, biopsy: 1. ?Transformation zone mucosa with acute and chronic cervicitis and reactive epithelial changes. B. ?Endocervix, curettage: 1. ?Benign fragments of endocervical mucosa. 2. ? Rare benign fragment of squamous mucosa. ?? Document reviewed and electronically signed by: Bailey Chen MD Report ??Date: 12/14/2007 11:16 By the signature above, the attending physician certifies that he/she has personally conducted a gross and/or microscopic examination of the described specimens and rendered or confirmed the above diagnosis. Specimen(s) Received: A. ?Cervix at 12:00 B. ? ECC Clinical History: ? H/O ASCUS Pap & NIKKO II LEEP, LMP: 11/17/07; clinical diagnosis codes: 795.01, 622.11 Gross Description: ? Received in formalin labelled Ross and cervix 12 o'clock is a 0.4 x 0.3 x 0.3 cm portion of romero-pink glistening mucosa. ??The specimen is submitted intact as (A). Received in formalin labelled Ross and ECC is a 0.9 x 0.7 x 0.2 cm aggregate of romero mucus. ??The specimen is submitted in toto as (B). ??(Damion Craig)/[facility] End of Report [facility] 12/12/2007 12/13/2007 12: 00 EST us Wilber Gino Sanchez MD PATHOLOGY ORDERABLES F inal Result [facility] [address] [place] [address] documented in this encounter Visit Diagnoses Not on filedocumented in this encounter Care Teams Plant Guard Relationship Specialty Start Date End Date Bailey Swartz MD [address] [phone] PCP - General 08/21/09 11/24/11 Irais Mancilla, PA-C [address] [place] [phone] PCP - General 02/04/09 08/20/09 documented as of this encounter
--- OUTSIDE RECORDS SUMMARY | 2024-10-25 15:49 | XMS_ITS | Encounter Summary ---
Author Organization [facility] Address [address] [place] [address] Care Team Providers Care Diesel Lube Tech Name Role Phone Bailey Swartz MD Primary Care Provider [phone] Irais Mancilla PA-C Primary Care Provider [phone] Encounter Details Date Type Department Care Team (Late st Contact Info) Description 01/03/2007 Results Only [facility] - Maple conversion [address] [place] [address] Wilber Sanchez MD [facility] [address] [address] Social History Tobacco Use Types [...] Priority Date/Time Associated Diagnosis Comments CYTOPATHOLOGY Routine 01/03/2007 0:00 EDT documented in this encounter Results * CYTOPATHOLOGY (01/03/2007 0:00 EDT) Pathology Report: CYTOPATHOLOGY REPORT Reports generated via electronic interface contain original data; however they are lacking the format of the original report. Caution should be taken when reading/interpreti ng unformatted reports. Name: ? JEROME ROSS ? Accession #: ? [id number] : ? 1985 (Age: 21) ??F ?Collect Date: ? 01/03/2007 Location: ? [facility] ? Receive Date: ? 01/04/2007 Provider: ?WILBER SANCHEZ MD Copy to: ? Specimen/Source: ?ThinPrep Pap Test, Cervix/Endocervix, processed on [employer] ThinPrep Imaging System, with manual evaluation Last Menstrual Period: ? 10/31/06 Hormonal/Contracep tive Status: ? Control Pills: Seasonale Previous Gynecologic Pathology: ? ARLET ? SPECIMEN ADEQUACY ? Satisfactory for Evaluation - transformation zone component present GENERAL CATEGORIZATION ? Negative for Intraepithelial Lesion or Malignancy INTERPRETATION ? Reactive cellular changes associated with inflammation present (includes repair). ? Document reviewed and electronically signed by: ? JOHN CASTRO MD [facility] ? Report Date: ??01/10/2007 18:10 End of Report [facility] 01/03/2007 01/04/2007 us Wilber Sanchez MD PATHOLOGY ORDERABLES F inal Result [facility] [address] [place] [address] documented in this encounter Visit Diagnoses Not on filedocumented in this encounter Care Teams Diesel Lube Tech Relationship Specialty Start Date End Date Bailey Swartz MD [address] [phone] PCP - General 08/21/09 11/24/11 Irais Mancilla PA-C [address] [place] [place] [phone] PCP - General 02/04/09 08/20/09 documented as of this encounter
--- OUTSIDE RECORDS SUMMARY | 2024-10-25 15:49 | XMS_ITS | Encounter Summary ---
Author Organization [facility] Address [address] [place] [address] Care Team Providers Care Livestock Ranch Hand Name Role Phone Monique Gonzalez Primary Care Provider [phone] Encounter Details Date Type Department Care Team (Late st Contact Info) Description 06/01/2012 Results Only [facility] - [facility] ([address] [phone] CousinsLelo PA Social History Tobacco Use Types Packs/Day Years [...] Diagnosis Comments PAP TEST- RESULT ONLY Routine 06/01/2012 0:00 EDT documented in this encounter Results * PAP TEST- RESULT ONLY (06/01/2012 0:00 EDT) Pathology Report: CYTOPATHOLOGY REPORT Reports generated via electronic interface contain original data; however they are lacking the format of the original report. Caution should be taken when reading/interpreti ng unformatted reports. Name: ? JEROME ROBLEDO ? Accession #: ? [id number] : ? 1985 (Age: 27) ??F ?Collect Date: ? 06/01/2012 Location: ? [facility] ? Receive Date: ? 06/02/2012 Provider: ?LELO CLEMENTS Copy to: ? Specimen/Source: ?Pap Test, Cervix/Endocervix, ThinPrep Imaging System with manual evaluation Last Menstrual Period: ? 05/22/12 Hormonal/Contracep tive Status: ? Oral contraceptives Treatment History: ? LEEP: 2006 ? SPECIMEN ADEQUACY ? Satisfactory for Evaluation - transformation zone component absent GENERAL CATEGORIZATION ? Negative for Intraepithelial Lesion or Malignancy ? Document reviewed and electronically signed by: ? Phyllis Medel, SCT(ASCP) ? Report Date: ??06/12/2012 11:51 End of Report [facility] 06/01/2012 06/02/2012 us Lelo CLEMENTS PATHOLOGY ORDERABLES Final R esult Performing Organization Address City/State/[facility] Co de Phone Number [facility] [address] [place] [address] documented in this encounter Visit Diagnoses Not on filedocumented in this encounter Care Teams Livestock Ranch Hand Relationship Specialty Start Date End Date Monique Gonzalez PA [address] [place] [address] PCP - General 11/25/11 09/16/14 documented as of this encounter
--- OUTSIDE RECORDS SUMMARY | 2024-10-25 15:49 | XMS_ITS | Encounter Summary ---
Author Organization [facility] Address [address] [place] [address] Care Team Providers Care Pipe And Test Supervisor Name Role Phone Unavailable Primary Care Provider Unavailabl e Encounter Details Date Type Department Care Team (Latest Contact Info) Description 02/19/2008 22:53 EDT Hospital Encounter [facility] - Other [address] [place] [address] Desirae Healy PA [phone] [place] [address] Discharge Disposition: Home or Self Care Social [...] Comments CULTURE FOR STAPHYLOCOCCUS COAGULASE POSITIVE Routine 04/18/2008 13:18 EDT CULTURE FOR STAPHYLOCOCCUS COAGULASE POSITIVE Routine 04/18/2008 13:17 EDT documented in this encounter Results * CULTURE FOR STAPHYLOCOCCUS COAGULASE POSITIVE (04/18/2008 13:18 EDT) Specimen Description Ear [facility] Result Due to transportation circumstances, specimen processing was delayed. Rare STAPHYLOCOCCUS COAGULASE POSITIVE (STAPHYLOCOCCUS AUREUS) [facility] Report Status Final [id number] [facility] 04/18/2008 13:1 8 EDT 04/22/2008 13:18 EDT Narrative Organism Antibiotic Method Susceptibility Rare staphylococcus coagulase positive (staphylococcus aureus) Susceptibility comment SUSCEPTIBILITY (SELAM) 1 Susceptible to nafcillin, cephalosporins and other beta lactam antibiotics (mecA gene product absent). Resistant Rare staphylococcus coagulase positive (staphylococcus aureus) Oxacillin SUSCEPTIBILITY (SELAM) 0.5 Susceptible Rare staphylococcus coagulase positive (staphylococcus aureus) Cefazolin SUSCEPTIBILITY (SELAM) <=8 Susceptible Rare staphylococcus coagulase positive (staphylococcus aureus) Vancomycin SUSCEPTIBILITY (SELAM) 2 Susceptible Rare staphylococcus coagulase positive (staphylococcus aureus) Erythromycin SUSCEPTIBILITY (SELAM) <=0.5 Susceptible Rare staphylococcus coagulase positive (staphylococcus aureus) Clindamycin SUSCEPTIBILITY (SELAM) <=0.5 Susceptible Rare staphylococcus coagulase positive (staphylococcus aureus) Ciprofloxacin SUSCEPTIBILITY (SELAM) <=0.5 Susceptible Desirae CLEMENTS MICROBIOLOGY - GENERAL ORDERABLE S Final Result Performing Organization Address City/State/[facility] Co de Phone Number [facility] [address] [place] [address] * CULTURE FOR STAPHYLOCOCCUS COAGULASE POSITIVE (04/18/2008 13:17 EDT) Specimen Description Nares [facility] Result Due to transportation circumstances, specimen processing was delayed. Few STAPHYLOCOCCUS COAGULASE POSITIVE (STAPHYLOCOCCUS AUREUS) [facility] Report Status Final [id number] [facility] 04/18/2008 13:1 7 EDT 04/22/2008 13:17 EDT Narrative Organism Antibiotic Method Susceptibility Few staphylococcus coagulase positive (staphylococcus aureus) Susceptibility comment SUSCEPTIBILITY (SELAM) 1 Susceptible to nafcillin, cephalosporins and other beta lactam antibiotics (mecA gene product absent). Resistant Few staphylococcus coagulase positive (staphylococcus aureus) Oxacillin SUSCEPTIBILITY (SELAM) 0.5 Susceptible Few staphylococcus coagulase positive (staphylococcus aureus) Cefazolin SUSCEPTIBILITY (SELAM) <=8 Susceptible Few staphylococcus coagulase positive (staphylococcus aureus) Vancomycin SUSCEPTIBILITY (SELAM) <=0.5 Susceptible Few staphylococcus coagulase positive (staphylococcus aureus) Erythromycin SUSCEPTIBILITY (SELAM) <=0.5 Susceptible Few staphylococcus coagulase positive (staphylococcus aureus) Clindamycin SUSCEPTIBILITY (SELAM) <=0.5 Susceptible Few staphylococcus coagulase positive (staphylococcus aureus) Ciprofloxacin SUSCEPTIBILITY (SELAM) <=0.5 Susceptible us Desirae CLEMENTS MICROBIOLOGY - GENERAL ORDERABLE S Final Result [facility] [address] [place] [address] documented in this encounter Visit Diagnoses Not on filedocumented in this encounter
--- OUTSIDE RECORDS SUMMARY | 2024-10-25 15:49 | XMS_ITS | Encounter Summary ---
Author Organization [facility] Address [address] [place] [address] Care Team Providers Care Livestock Nutrition Territory Manager Name Role Phone Unavailable Primary Care Provider Unavailabl e Encounter Details Date Type Department Care Team (Latest Contact Info) Description 04/18/2008 13:28 EDT Hospital Encounter [facility] - Other [address] [place] [address] Desirae Healy PA [address] [place] [address] Discharge Disposition: Home or Self Care Social [...] Priority Date/Time Associated Diagnosis Comments CYTOPATHOLOGY Routine 05/24/2008 0:00 EDT documented in this encounter Results * CYTOPATHOLOGY (05/24/2008 0:00 EDT) Pathology Report: CYTOPATHOLOGY REPORT ? Reports generated via electronic interface contain original data; ? however they are lacking the format of the original report. ? Caution should be taken when reading/interpreti ng unformatted reports. ? Name: ? JEROME ROSS ? Accession #: ? [id number] ? : ? 1985 (Age: 23) ??F ?Collect Date: ? 05/24/2008 ? Location: ? [facility] ? Receive Date: ? 05/24/2008 ? Provider: ?KRUNAL JIN SPORTS PHYSIOTHERAPIST ? Copy to: ? Specimen/Source: ?ThinPrep Pap Test, Cervix/Endocervix, processed on [employer] ThinPrep Imaging System, with manual evaluation ? Last Menstrual Period: ? 07/15/08 ? Hormonal/Contracep tive Status: ? Oral contraceptives [...] Document reviewed and electronically signed by: ? Norberto Raya, CT(ASCP) ? Report Date: ??05/29/2008 11:10 ? End of Report ? [facility] 05/24/2008 05/24/2008 us Krunal Vazquez CASH REGISTER OPERATOR PATHOLOGY ORDERABLES Final Resu lt [facility] [address] [place] [address] documented in this encounter Visit Diagnoses Not on filedocumented in this encounter Orders Lab Orders Without Results Count Last Ordered D ate First Ordered Date CYTOPATHOLOGY 1 05/24/2008 documented in this encounter
--- OUTSIDE RECORDS SUMMARY | 2024-10-25 15:49 | XMS_ITS | Encounter Summary ---
Author Organization [facility] Address [address] [place] [address] Care Team Providers Care Retail Salesman Name Role Phone Unavailable Primary Care Provider Unavailabl e Encounter Details Date Type Department Care Team (Latest Contact Info) Description 11/07/2007 11:09 EST - 11/07/2007 11:59 EST Hospital Encounter [facility] - Other [address] [place] [address] Kristi Sánchez, [facility] [address] [place] [address] Discharge Disposition: Home or Self [...]
--- OUTSIDE RECORDS SUMMARY | 2024-10-25 15:49 | XMS_ITS | Encounter Summary ---
Author Organization [facility] Address [address] [place] [address] Care Team Providers Care Bread Pan Greaser Name Role Phone Monique Gonzalez Primary Care Provider [phone] Encounter Details Date Type Department Care Team (Late st Contact Info) Description 08/06/2013 Results Only [facility] [phone] Wilda Ochoa PA [address],[facility] [address] [place] [address] Social History Tobacco Use Types [...] Date/Time Associated Diagnosis Comments SURGICAL PATHOLOGY Routine 08/06/2013 14 :59 EDT documented in this encounter Results * SURGICAL PATHOLOGY (08/06/2013 14:59 EDT) Pathology Report: SURGICAL PATHOLOGY REPORT Reports generated via electronic interface contain original data; however they are lacking the format of the original report. Caution should be taken when reading/interpreting unformatted reports. Name: ? JESSICA ROBLEDO ? Accession #: ? [id number] ? : ? 1985 (Age: 28) ??F ? Collect Date: ? 08/06/2013 ? Location: ? [facility] ? Receive Date: ? 08/06/2013 ? Provider: WILDA CLEMENTS Copy to: ? Final Pathologic Diagnosis: SKIN OF ARM, RIGHT ANTERIOR DISTAL UPPER, PUNCH BIOPSY: - Superficial perivascular dermatitis with mild spongiosis. ??See microscopic and comment. Comment: The findings are relatively subtle. Present is evidence of excoriation. The epidermis shows mild spongiosis, raising an eczematous process as a consideration. Within the dermis are rare eosinophils also raising a dermal hypersensitivity reaction, such as a drug-related eruption, as a consideration as well. The density of the eosinophils is not typical for an arthropod assault reaction or an allergic contact eczematous process. This case was shown in intradepartmental consultation. These results were phoned to [facility]. (Dr. Sneed)/yesenia Microscopic Description: Sections consist of a punch biopsy of skin. ??There is mild epidermal spongiosis with associated erosion. ??Within the dermis, is a superficial, predominantly perivascular, lymphomononuclear infiltrate. Rare eosinophils are noted. Multiple deeper levels have been examined. ??(Dr. Sneed)/[facility] Document reviewed and electronically signed by: JYOTI SNEED MD Report ??Date: 08/14/2013 09:29 By the signature above, the attending physician certifies that he/she has personally conducted a gross and/or microscopic examination of the described specimens and rendered or confirmed the above diagnosis. Specimen(s) Received: Right anterior distal upper arm punch biopsy Clinical History: DDX: dermatitis unspecified vs contact dermatitis, other vs eczema vs arthropod assault; clinical diagnosis code: ??692.9 Gross Description: ? Received in formalin labelled with proper patient identification (initials C, J) and A. right anterior distal upper is a punch biopsy of romero-white skin (0.3 x 0.2 cm in diameter and 0.2 cm in thickness). ??Submitted intact in 1. Maura Cruz 08/06/2013 03:12 PM End of Report [facility] 08/06/2013 14:5 9 EDT 08/06/2013 14:59 EDT us Wilda CLEMENTS PATHOLOGY ORDERABLES Final Result [facility] [address] [place] [address] documented in this encounter Visit Diagnoses Not on filedocumented in this encounter Care Teams Bread Pan Greaser Relationship Specialty Start Date End Date Monique Gonzalez PA [address] [place] [address] PCP - General 11/25/11 09/16/14 documented as of this encounter
--- OUTSIDE RECORDS SUMMARY | 2024-10-25 15:49 | XMS_ITS | Encounter Summary ---
Author Organization [facility] Address [address] [place] [address] Care Team Providers Care Inclinometer Tester Name Role Phone Unavailable Primary Care Provider Unavailabl e Encounter Details Date Type Department Care Team (Latest Contact Info) Description 01/17/2008 10:11 EDT - 01/17/2008 11:59 EDT Hospital Encounter [facility] - Other [address] [place] [address] Desirae Healy PA [address] [place] [address] Discharge Disposition: Home or Self Care Social [...] Comments CULTURE FOR STAPHYLOCOCCUS COAGULASE POSITIVE Routine 01/17/2008 15:00 EDT CULTURE FOR STAPHYLOCOCCUS COAGULASE POSITIVE Routine 01/17/2008 15:00 EDT documented in this encounter Results * CULTURE FOR STAPHYLOCOCCUS COAGULASE POSITIVE (01/17/2008 15:00 EDT) Specimen Description Face [facility] Result Few STAPHYLOCOCCU S COAGULASE POSITIVE (STAPHYLOCOCC US AUREUS) [facility] Report Status Final [id number] [facility] 01/17/2008 15:0 0 EDT 01/18/2008 13:42 EDT Narrative Organism Antibiotic Method Susceptibility Few staphylococcus coagulase positive (staphylococcus aureus) Oxacillin SUSCEPTIBILITY (SELAM) 0.5 Susceptible Few staphylococcus coagulase positive (staphylococcus aureus) Cefazolin SUSCEPTIBILITY (SELAM) <=8 Susceptible Few staphylococcus coagulase positive (staphylococcus aureus) Vancomycin SUSCEPTIBILITY (SELAM) 2 Susceptible Few staphylococcus coagulase positive (staphylococcus aureus) Erythromycin SUSCEPTIBILITY (SELAM) <=0.5 Susceptible Few staphylococcus coagulase positive (staphylococcus aureus) Clindamycin SUSCEPTIBILITY (SELAM) <=0.5 Susceptible Few staphylococcus coagulase positive (staphylococcus aureus) Ciprofloxacin SUSCEPTIBILITY (SELAM) <=0.5 Susceptible Few staphylococcus coagulase positive (staphylococcus aureus) Susceptibility comment SUSCEPTIBILITY (SELAM) 1 Susceptible to nafcillin, cephalosporins and other beta lactam antibiotics (mecA gene product absent). Resistant Desirae CLEMENTS MICROBIOLOGY - GENERAL ORDERABLE S Final Result Performing Organization Address City/[facility]/ZIP Co de Phone Number [facility] [address] [place] [address] * CULTURE FOR STAPHYLOCOCCUS COAGULASE POSITIVE (01/17/2008 15:00 EDT) Specimen Description Nares [facility] Result No Staphylococcus coagulase positive isolated [facility] Report Status Final [id number] [facility] 01/17/2008 15:0 0 EDT 01/18/2008 13:41 EDT Desirae CLEMENTS MICROBIOLOGY - GENERAL ORDERABLE S Final Result Performing Organization Address City/[facility]/ZIP Co de Phone Number [facility] [address] [place] [address] documented in this encounter Visit Diagnoses Not on filedocumented in this encounter
--- OUTSIDE RECORDS SUMMARY | 2024-10-25 15:49 | XMS_ITS | Encounter Summary ---
Author Organization [facility] Address [address] [place] [address] Care Team Providers Care Cigarette Lighter Repairer Name Role Phone Unavailable Primary Care Provider Unavailabl e Encounter Details Date Type Department Care Team (Late st Contact Info) Description 12/10/2005 10:22 EST Hospital Encounter [facility] - Maple conversion [address] [place] [address] Anshul Campos MD [address] [facility] [address] [place] [address] Social History Tobacco Use Types Packs/Day Years [...]
--- OUTSIDE RECORDS SUMMARY | 2024-10-25 15:49 | XMS_ITS | Encounter Summary ---
Author Organization [facility] Address [address] [place] [address] Care Team Providers Care Residential Nurse Name Role Phone Tayler Gutiérrez MD Primary Care Provider + Reason for Visit * Reason Comments Headache Dizziness New Patient Visit Patient is being see n at the request of Vinicio Gutiérrez for above symptoms and positive ROMI. Encounter Details Date Type Department Care Team (Late st Contact Info) Description 01/01/2016 10:20 EDT Office Visit [facility] Rheumatology & Immunology - [address] [phone] Kumar Hester Chi, MD [address] [place] [address], [address] [place] [address] Positive ROMI (antinuclear antibody) (Primary Dx); Gluten intolerance; Syncope, unspecified syncope type Social History Tobacco Use Types Packs/Day Years [...] Sign Reading Time Taken Comments Blood Pressure 112/70 01/01/2016 1025 EDT Pulse 56 01/01/2016 1025 EDT Temperature - - Respiratory Rate 16 01/01/2016 1025 EDT Oxygen Saturation - - Inhaled Oxygen Concentration - - Weight 61.7 kg (136 lb) 01/01/2016 1025 EDT Height 162.6 cm (5' 4) 01/01/2016 1025 EDT Body Mass Index 23.34 01/01/2016 1025 EDT documented in this encounter Functional Status [...] documented in this encounter Discharge Diagnoses Diagnosis R76.8 Other specified abnormal immunological findings in serum-R76.8[ICD-10-CM] K90.0 Celiac disease-K90.0[ICD-10-CM] R55 Syncope and collapse-R55[ICD-10-CM] documented in this encounter Patient Instructions * Patient Instructions* Kumar Hester Chi, MD - 01/01/2016 11:22 EDT Continue current meds. documented in this encounter Progress Notes * Kumar Hester Chi, MD - 01/01/2016 1011 EDT Images from the original note were not included. Subjective: Patient ID: Jerome Robledo is an 30 y.o. female. Chief Complaint Patient presents with ??? Headache ??? Dizziness ??? New Patient Visit Patient is being seen at the request of Vinicio Gutiérrez for above symptoms and positive ROMI. HPI Comments: Recently found to have abnormal labs with +ROMI and therefore referred here. Has had syncopal episodes for the past 3 yrs occurring every several months. Neurology workup was negative for seizure or any FLIGHT COMMUNICATIONS OPERATOR pathology. Presyncopal symptoms include lightheadedness, feeling warm and unwell; she has had documented low BP prior to passing out, though has never taken her pulse. She usually loses consciousness only for several seconds. The presyncope and syncope have occurred while sitting, laying down, driving. Holter monitor showed low heartrate? When very young, patient would pass out once a year with blood draws. Can thwart the syncopal episode by laying down. Joints that bother the pt currently: Neck: no Low back: has had a sore tailbone for several weeks. Shoulders: no Elbows: no Wrists: no Fingers: mild aches Hips: no Knees: achey and stiff; underwent R knee lateral release 2003; R knee bothers when she is near the end of her long distance runs; bothers most ascending stairs Ankles: no Feet/ toes: Heels are sore; has hx of R plantar tenotomy. Left heel now bothers her. Joints swelling- denies AM stiffness- Tired due to having to care for her 7 mo old Pain at night- R knee can lock up Therapies tried and failed- Therapies that helped- Ibuprofen 2 tabs bid prn Physical activity/ exercise- Runs regularly. Occasional syncopal episode after running. 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 Patient Active Problem List Diagnosis ??? Plantar fascial fibromatosis ??? Right anterior knee pain ??? Near syncope Past Medical History Diagnosis Date ??? Depression Past Surgical History Procedure Laterality Date ??? Knee surgery 2003 right knee lateral release (?) Meera Quinones ??? Plantar fascia surgery Right 2011 ??? Abdominal hernia repair 2014 Family History Problem Relation Age of Onset ??? Arthritis-Osteo Paternal Grandmother Social History Substance Use Topics ??? Smoking status: Never Smoker ??? Smokeless tobacco: Never Used ??? Alcohol Use: 0.0 oz/week 0 Standard drinks or equivalent per week Comment: one drink a week Outpatient Prescriptions Marked as Taking for the 01/01/16 encounter (Office Visit) with Kumar Hester Chi, MD Medication Sig Dispense Refill ??? Multivitamins with Minerals Tab Take 1 Tab by mouth daily. ??? sertraline (ZOLOFT) 50 mg tablet Take 50 mg by mouth. No Known Allergies Review of Systems Constitutional: Positive for fever (with bronchitis this past fall), weight loss (with delivery), malaise/fatigue and diaphoresis. Negative for chills. HENT: No oral ulcers No dry mouth Eyes: Positive for blurred vision. Negative for pain. No dry eyes Respiratory: Positive for cough and shortness of breath. Negative for wheezing. Cardiovascular: Positive for palpitations. Negative for chest pain. No raynauds Gastrointestinal: Positive for diarrhea (with gluten exposure). Negative for heartburn, nausea, abdominal pain, constipation and blood in stool. Genitourinary: Negative for dysuria, frequency and hematuria. Uncomplicated delivery in may 2015. No history of miscarriages. Musculoskeletal: Positive for joint pain. Negative for myalgias, back pain and neck pain. Skin: Positive for rash (2 yrs ago had pruritic red rash on torso, neck, arms- lasted 3 months; resolved with gluten free diet). Negative for itching. No sun sensitive rashes no psoriasis Neurological: Positive for dizziness, loss of consciousness and headaches. Negative for tingling, focal weakness and seizures. Endo/Heme/Allergies: Does not bruise/bleed easily. Psychiatric/Behavioral: Negative for depression. The patient is nervous/anxious and has insomnia. All other systems reviewed and are negative. - See HPI Objective: BP 112/70 mmHg Pulse 56 Resp 16 Ht 162.6 cm (64) Wt 61.689 kg (136 lb) BMI 23.33 kg/m2 Physical Exam Constitutional: She is oriented to person, place, and time. She appears well- developed and well-nourished. No distress. Slender, quiet, reserved young female HENT: Head: Normocephalic and atraumatic. Mouth/Throat: No oropharyngeal exudate. Eyes: EOM are normal. Pupils are equal, round, and reactive to light. Neck: No thyromegaly present. Cardiovascular: Regular rhythm and normal heart sounds. Bradycardia present. Pulmonary/Chest: Effort normal and breath sounds normal. Abdominal: Soft. She exhibits no mass. There is no tenderness. Musculoskeletal: a complete musculoskeletal exam of the upper and lower extremities was performed and was normal except for findings shown on the homonculus: Lymphadenopathy: She has no cervical adenopathy. Neurological: She is alert and oriented to person, place, and time. No cranial nerve deficit. Skin: No rash noted. Fading acneiform lesions on the face. No sclerodactyly or telangiectasias. Psychiatric: She has a normal mood and affect. Her behavior is normal. Vitals reviewed. 08/06/13 Skin bx: SKIN OF ARM, RIGHT ANTERIOR DISTAL UPPER, PUNCH BIOPSY: - Superficial perivascular dermatitis with mild spongiosis. External labs 12/18/15: WBC 8.7 Hgb 13.3, HCT 39.4, PLT 231 BMP normal TSH 0.67 CRP negative Vitamin B12 825 ROMI 1:320 speckled 25-hydroxy Vitamin D 67 Assessment: Plan: 1. Positive ROMI (antinuclear antibody) ANTI DNA (DOUBLE STRAND) C4 COMPLEMENT URINALYSIS WITH REFLEX MICROSCOPIC SSB ANTIBODIES BY DONY SSA ANTIBODIES BY DONY SM ANTIBODIES BY DONY PERINATAL DIRECTOR ANTIBODIES BY DONY THYROID ANTIBODIES 2. Gluten intolerance TISSUE TRANSGLUTAMINASE AB 3. Syncope, unspecified syncope type Positive ROMI 1:320- No additional signs or symptoms for systemic lupus, scleroderma, Sjogren's or rheumatoid arthritis. We will complete workup by checking more specific autoantibodies as well as antibodies for thyroiditis which can be associated with positive ROMI. She may well have positive ROMI without underlying disease. Gluten intolerance- Resolution of dermatitis when she stopped consuming gluten 3 years ago. Check TTG antibodies which may be negative if she has been avoiding gluten products. Gluten sensitivity can be associated with positive ROMI. No signs or symptoms of inflammatory bowel disease at this time. Syncope- Unclear etiology; do not suspect underlying autoimmune cause. Vasovagal? Bradycardia?- Patient may need to follow-up with cardiology. Barriers to learning identified: No Patient verbalizes understanding and agrees with plan Yes F/u prn. We will notify her about today's test results. Copy of this note will be sent to PCP: Tayler Hester MD documented in this encounter Plan of Treatment Not on file documented as of this encounter Results * THYROID ANTIBODIES (01/01/2016 11:32 EDT) Thyroglobulin Ab <15 <61 U/mL 01/01/20 16 13:09 EDT [facility] Thyroperoxidase Ab <28 <61 U/mL 2015 14:46 EDT [facility] Blood specimen (specimen) BLOOD SPECIMEN / Unknown 01/01/2016 11:32 EDT 01/01/2016 11:59 EDT us Kumar Hester MD CHEMISTRY & BLOOD GAS ORDERABLES Final Result [facility] [address] [place] [address] * TISSUE TRANSGLUTAMINASE AB (01/01/2016 11:32 EDT) Tissue Transglut Ab <1.2 <4 U/mL 01/02/2016 14:08 EDT [facility] Comment: The following results were obtained with the SiBEAMVA QUANTA Lite R h-tTG IgA DONY assay on the [employer] DSX. A negative result may be due to IgA deficiency and does not rule out celiac disease. Blood specimen (specimen) BLOOD SPECIMEN / Unknown 01/01/2016 11:32 EDT 01/01/2016 11:59 EDT us Kumar Hester MD IMMUNOLOGY AND SEROLOGY ORDERABL ES Final Result Performing Organization Address [facility] de Phone Number [facility] [address] [place] [address] * PERINATAL DIRECTOR ANTIBODIES BY DONY (01/01/2016 11:32 EDT) PERINATAL DIRECTOR Antibody 2.4 <20 Units 01/05/2016 17:03 EDT [facility] Comment: Negative: <20 Units Weak Positive: 20 - 29 Units Moderate Positive: 40 - 80 Units Strong Positive: >80 Units The following results were obtained with the SiBEAMVA QUANTA Lite PERINATAL DIRECTOR DONY. PERINATAL DIRECTOR values obtained with different manufacturers' assay methods may not be used interchangeably. The magnitude of the reported IgG levels cannot be correlated to an endpoint titer. A positive result in the QUANTA Lite PERINATAL DIRECTOR DONY indicates the presence of antibodies reactive with the PERINATAL DIRECTOR/Sm complex but cannot distinguish between anti-Sm and anti-PERINATAL DIRECTOR activity. Blood specimen (specimen) BLOOD SPECIMEN / Unknown 01/01/2016 11:32 EDT 01/01/2016 11:59 EDT us Kumar Hester MD IMMUNOLOGY AND SEROLOGY ORDERABL ES Final Result Performing Organization Address [facility] Co de Phone Number [facility] [address] [place] [address] * SM ANTIBODIES BY DONY (01/01/2016 11:32 EDT) Sm (Ross) Antibody 3.0 <20 Units 01/05/2016 17:03 EDT [facility] Comment: Negative: <20 Units Weak [...] ORDERABL ES Final Result Performing Organization Address [facility] Number [facility] [address] [place] [address] * SSA ANTIBODIES BY DONY (01/01/2016 11:32 EDT) SSA Antibody 2.0 <20 Units 01/05/2016 14:58 EDT [facility] Comment: Negative: <20 Units Weak [...] ORDERABL ES Final Result Performing Organization Address [facility] de Phone Number [facility] [address] [place] [address] * SSB ANTIBODIES BY DONY (01/01/2016 11:32 EDT) SSB Antibody 1.5 <20 Units 01/05/2016 14:58 EDT [facility] Comment: Negative: <20 Units Weak [...] ORDERABL ES Final Result Performing Organization Address [facility] de Phone Number [facility] [address] [place] [address] * (ABNORMAL) C4 COMPLEMENT (01/01/2016 11:32 EDT) C4 Complement 14(L) 16 - 38 mg/dl 01/01/2016 15:03 EDT [facility] Blood specimen (specimen) BLOOD SPECIMEN / Unknown 01/01/2016 11:32 EDT 01/01/2016 11:59 EDT Result Elvia Hester MD CHEMISTRY & BLOOD GAS ORDERABLES Final Result Performing Organization Address [facility] Number [facility] [address] [place] [address] * ANTI DNA (DOUBLE STRAND) (01/01/2016 11:32 EDT) Pathologist [facility] Anti DNA (DS) <12.3 <30 IU/mL 01/06/2016 12:35 EDT [facility] Comment: The following results were obtained with the INOVA QUANTA Lite dsDNA SC Dony assay on the [employer] DSX. Blood specimen (specimen) BLOOD SPECIMEN / Unknown 01/01/2016 11:32 EDT 01/01/2016 11:59 EDT Result Elvia Hester MD IMMUNOLOGY AND SEROLOGY ORDERABL ES Final Result Performing Organization Address [facility] de Phone Number [facility] [address] [place] [address] * URINALYSIS WITH REFLEX MICROSCOPIC (01/01/2016 11:31 EDT) Color, UA Yellow 01/01/2016 12:03 T [facility] Clarity, UA Hazy 01/01/2016 12:03 [facility] Glucose, UA Neg Neg 01/01/2016 12:03 T [facility] Bilirubin, UA Neg Neg 01/01/2016 12:03 T [facility] Ketones, UA Neg Neg 01/01/2016 12:03 [facility] Specific [place], Urine 1.010 1.001 - 1.035 01/01/2016 12:03 [facility] Blood, UA Neg Neg 01/01/2016 12:03 [facility] pH, UA 6.0 4.6 - 8.0 01/01/2016 12:03 [facility] Protein, UA Neg Neg 01/01/2016 12:03 [facility] Urobilinogen, UA 0.2 0.2 - 1.0 E.U./dl 01/01/2016 12:03 [facility] Nitrite, UA Neg Neg 01/01/2016 12:03 [facility] Leuk Esterase Neg Neg 01/01/2016 12:03 [facility] Urine specimen (specimen) URINE / Unknown 01/01/2016 11:31 EDT 01/01/2016 11:50 EDT us Kumar Hester MD URINALYSIS ORDERABLES Final Resu lt [facility] [address] [place] [address] documented in this encounter Visit Diagnoses Diagnosis Positive ROMI (antinuclear antibody)- Primary Other and unspecified nonspecific immunological findings Gluten intolerance Celiac disease Syncope, unspecified syncope type documented in this encounter Discontinued Medications Medication Sig Discontinue Reason Start Date End Da te BUPROPION HCL (WELLBUTRIN ORAL) Take 150 mg by mouth daily. Patient Stopped Taking 01/01/2016 NORETH A-ET ESTRA/FE FUMARATE (LO LOESTRIN FE ORAL) Take by mouth. Patient Stopped Taking 6 SULFAMETHOXAZOLE ORAL Take by mouth daily. Patient Stopped Taking 01/01/2016 ibuprofen (MOTRIN) 200 mg tablet Take 200 mg by mouth as needed for Pain. Patient Stopped Taking 01/01/2016 documented as of this encounter Historical Medications * This list may reflect changes made after this encounter. sertraline (ZOLOFT) 50 mg tablet Take 50 mg by mouth. added in this encounter Care Teams Residential Nurse Relationship Specialty Start Date End Date Tayler Gutiérrez MD [address] [place] [id number] PCP - General 09/17/14 12/18/17 documented as of this encounter
--- OUTSIDE RECORDS SUMMARY | 2024-10-25 15:49 | XMS_ITS | Encounter Summary ---
Author Organization [facility] Address [address] [place] [address] Care Team Providers Care Credit Balance Specialist Name Role Phone Irais Mancilla PA-C Primary Care Provider Encounter Details Date Type Department Care Team (Late st Contact Info) Description 02/06/2009 8:40 EDT - 02/06/2009 23:59 EDT Hospital Encounter [facility] [address] [place] [address] Artur Mancera MD [address] [facility], [address] [place] [address] Social History Tobacco Use Types Packs/Day Years Used Date Smoking Tobacco: Never Assessed Comments Unknown Sex and Gender Information Value Date Recorded Sex Assigned at Not on file Legal Sex Female 18:30 EST Gender Identity Not on file Sexual Orientation Not on file documented as of this encounter Discharge Disposition Disposition Code Departure Means Destination Home documented in this encounter Plan of Treatment Not on file documented as of this encounter Procedures Procedure Name Priority Date/Time Associated Diagnosis Comments CULTURE FOR STAPHYLOCOCCUS COAGULASE POSITIVE Routine 04/15/2009 13:25 EDT CULTURE FOR STAPHYLOCOCCUS COAGULASE POSITIVE Routine 04/15/2009 13:23 EDT TSH Routine 02/06/2009 8:43 EDT documented in this encounter Results * CULTURE FOR STAPHYLOCOCCUS COAGULASE POSITIVE (04/15/2009 13:25 EDT) Specimen Description Face Specimen submitted on a swab [facility] Result No Staphylococcus coagulase positive isolated [facility] Report Status Final 04/18/2009 [facility] 04/15/2009 13:2 5 EDT 04/16/2009 13:25 EDT us Desirae CLEMENTS MICROBIOLOGY - GENERAL ORDERABLE S Final Result Performing Organization Address [facility] [place] Co de Phone Number [facility] [address] [place] [address] * CULTURE FOR STAPHYLOCOCCUS COAGULASE POSITIVE (04/15/2009 13:23 EDT) Specimen Description Nares Specimen submitted on a swab [facility] Result No Staphylococcus coagulase positive isolated [facility] Report Status Final 04/18/2009 [facility] 04/15/2009 13:2 3 EDT 04/16/2009 13:23 EDT us Desirae CLEMENTS MICROBIOLOGY - GENERAL ORDERABLE S Final Result Performing Organization Address [facility] de Phone Number [facility] [address] [place] [address] * TSH (02/06/2009 8:43 EDT) TSH 1.49 0.35 - 5.00 uIU/ml [facility] Blood specimen (specimen) 02/06/2009 8:43 EDT 02/06/2009 9:20 EDT us Artur Mancera MD CHEMISTRY & BLOOD GAS CAITIE SQUIRES Final Result Performing Organization Address [facility] Co de Phone Number [facility] [address] [place] [address] documented in this encounter Visit Diagnoses Not on filedocumented in this encounter Care Teams Credit Balance Specialist Relationship Specialty Start Date End Date Irais Mancilla, PA-C [address] [place] [address] PCP - General 02/04/09 08/20/09 documented as of this encounter
--- OUTSIDE RECORDS SUMMARY | 2024-10-25 15:49 | XMS_ITS | Encounter Summary ---
Author Organization [facility] Address [address] [place] [address] Care Team Providers Care Fast Food Fry Cook Name Role Phone Bailey Swartz MD Primary Care Provider [phone] Encounter Details Date Type Department Care Team (Late st Contact Info) Description 01/28/2010 Results Only [facility] Laboratory Services - [facility] ([facility]) [address] [place], [place] [address] Kath Vazquez, NOODLE MAKER [address] [place] [address] Social History Tobacco Use Types [...] Priority Date/Time Associated Diagnosis Comments CYTOPATHOLOGY Routine 01/28/2010 0:00 EDT documented in this encounter Results * CYTOPATHOLOGY (01/28/2010 0:00 EDT) Pathology Report: CYTOPATHOLOGY REPORT ? Reports generated via electronic interface contain original data; ? however they are lacking the format of the original report. ? Caution should be taken when reading/interpreti ng unformatted reports. ? Name: ? JEROME ROSS ? Accession #: ? [id number] ? : ? 1985 (Age: 24) ??F ?Collect Date: ? 01/28/2010 ? Location: ? [facility] ? Receive Date: ? 01/29/2010 ? Provider: ?KATH JIN FORESTRY SUPPORT SPECIALIST ? Copy to: ? Specimen/Source: ?Pap Test, Cervix/Endocervix, ThinPrep Imaging System ? with manual evaluation ? Last Menstrual Period: ? 03/10 ? Hormonal/Contracep tive Status: ? Oral contraceptives: continuous ? Previous Gynecologic Pathology: ? ASC-US ? NIKKO II ? Treatment History: ? LEEP: 2006 ? Colposcopy: 2008 ? Other: ? Additional clinical information: Insufficient pap 08/27/09 ? HPVA - HPV testing requested if ASC-US on the current ThinPrep Pap test. ? SPECIMEN ADEQUACY ? Satisfactory for Evaluation ? - transformation zone component present ? GENERAL CATEGORIZATION ? Negative for Intraepithelial Lesion or Malignancy ? Document reviewed and electronically signed by: ? Gerson Stumler, CT(ASCP) ? Report Date: ??02/04/2010 13:42 ? End of Report ? [facility] 01/28/2010 01/29/2010 us Kath Vazquez NOODLE MAKER PATHOLOGY ORDERABLES Final Resu lt [facility] [address] [place] [address] documented in this encounter Visit Diagnoses Not on filedocumented in this encounter Care Teams Fast Food Fry Cook Relationship Specialty Start Date End Date Bailey Swartz MD [address] [phone] PCP - General 08/21/09 11/24/11 documented as of this encounter
--- OUTSIDE RECORDS SUMMARY | 2024-10-25 15:49 | XMS_ITS | Encounter Summary ---
Author Organization [facility] Address [address] [place] [address] Care Team Providers Care Manager Construction Name Role Phone Unavailable Primary Care Provider Unavailabl e Encounter Details Date Type Department Care Team (Late st Contact Info) Description 05/24/2008 12:51 EDT Hospital Encounter [facility] - Other [address] [place] [address] Kath Vazquez, HABITAT MANAGEMENT COORDINATOR [address] [place] [address] Discharge Disposition: Home or Self Care Social [...] Comments CULTURE FOR STAPHYLOCOCCUS COAGULASE POSITIVE Routine 07/10/2008 14:37 EDT CULTURE FOR STAPHYLOCOCCUS COAGULASE POSITIVE Routine 07/10/2008 14:36 EDT documented in this encounter Results * CULTURE FOR STAPHYLOCOCCUS COAGULASE POSITIVE (07/10/2008 14:37 EDT) Specimen Description Face [facility] Result One colony only STAPHYLOCOCCU S COAGULASE POSITIVE (STAPHYLOCOCC US AUREUS) Few Mixed gram positive growth [facility] Report Status Final 07/14/2008 [facility] 07/10/2008 14:3 7 EDT 07/11/2008 14:37 EDT Narrative Organism Antibiotic Method Susceptibility One colony only staphylococcus coagulase positive (staphylococcus aureus) Susceptibility comment SUSCEPTIBILITY (SELAM) Susceptible to nafcillin, cephalosporins and other beta lactam antibiotics (mecA gene product absent). Resistant One colony only staphylococcus coagulase positive (staphylococcus aureus) Oxacillin SUSCEPTIBILITY (SELAM) 0.5 Susceptible One colony only staphylococcus coagulase positive (staphylococcus aureus) Cefazolin SUSCEPTIBILITY (SELAM) <=8 Susceptible One colony only staphylococcus coagulase positive (staphylococcus aureus) Vancomycin SUSCEPTIBILITY (SELAM) <=0.5 Susceptible One colony only staphylococcus coagulase positive (staphylococcus aureus) Erythromycin SUSCEPTIBILITY (SELAM) <=0.5 Susceptible One colony only staphylococcus coagulase positive (staphylococcus aureus) Clindamycin SUSCEPTIBILITY (SELAM) <=0.5 Susceptible One colony only staphylococcus coagulase positive (staphylococcus aureus) Ciprofloxacin SUSCEPTIBILITY (SELAM) <=0.5 Susceptible Desirae CLEMENTS MICROBIOLOGY - GENERAL ORDERABLE S Final Result Performing Organization Address [facility]/ZIP Co de Phone Number [facility] [address] [place] [address] * CULTURE FOR STAPHYLOCOCCUS COAGULASE POSITIVE (07/10/2008 14:36 EDT) Specimen Description Nares [facility] Result No Staphylococcus coagulase positive isolated [facility] Report Status Final [id number] [facility] 07/10/2008 14:3 6 EDT 07/11/2008 14:36 EDT Desirae CLEMENTS MICROBIOLOGY - GENERAL ORDERABLE S Final Result Performing Organization Address City/[facility]/ZIP Co de Phone Number [facility] [address] [place] [address] documented in this encounter Visit Diagnoses Not on filedocumented in this encounter
--- OUTSIDE RECORDS SUMMARY | 2024-10-25 15:49 | XMS_ITS | Encounter Summary ---
Author Organization [facility] Address [address] [place] [address] Care Team Providers Care Shared Services And Outsourcing Manager Name Role Phone Unavailable Primary Care Provider Unavailabl e Encounter Details Date Type Department Care Team (Late st Contact Info) Description 12/12/2007 22:00 EST Hospital Encounter [facility] - Other [address] [place] [address] Wilber Sanchez MD [address] [place] [phone] Discharge Disposition: Home or Self Care Social [...]
--- OUTSIDE RECORDS SUMMARY | 2024-10-25 15:49 | XMS_ITS | Encounter Summary ---
Author Organization [facility] Address [address] [place] [address] Care Team Providers Care Hot Iron Worker Name Role Phone Irais Mancilla PA-C Primary Care Provider Encounter Details Date Type Department Care Team (Late st Contact Info) Description 06/12/2009 11:05 EDT - 06/12/2009 11:06 EDT Hospital Encounter [facility] - Other [address] [place] [address] Kath Vazquez, LEATHER ETCHER [address] [place] [phone] Discharge Disposition: Home-Health Care Svc Social History Tobacco Use Types Packs/Day Years Used Date Smoking Tobacco: Never Assessed Comments Unknown Sex and Gender Information Value Date Recorded Sex Assigned at Not on file Legal Sex Female 18:30 EST Gender Identity Not on file Sexual Orientation Not on file documented as of this encounter Discharge Disposition Disposition Code Departure Means Destination Home-Health Care Svc documented in this encounter Plan of Treatment Not on file documented as of this encounter Visit Diagnoses Not on filedocumented in this encounter Care Teams Hot Iron Worker Relationship Specialty Start Date End Date Irais Mancilla PA-C [address] [place] [phone] PCP - General 02/04/09 08/20/09 documented as of this encounter
--- OUTSIDE RECORDS SUMMARY | 2024-10-25 15:49 | XMS_ITS | Encounter Summary ---
Author Organization [facility] Address [address] [place] [address] Care Team Providers Care Shed Hand Name Role Phone Bailey Swartz MD Primary Care Provider Irais Mancilla PA-C Primary Care Provider Encounter Details Date Type Department Care Team (Late st Contact Info) Description 07/03/2007 Results Only [facility] [place] [facility] [address] [place] [address] Latoya Sánchez, HOUSEKEEPER AND LAUNDRY ASSISTANT [address] [place] [address] Social History Tobacco Use Types [...] Comments HPV DETECTION, HIGH RISK TYPES Routine 07/03/2007 15:02 EDT CYTOPATHOLOGY Routine 07/03/2007 0:00 EDT documented in this encounter Results * HUMAN PAPILLOMA VIRUS DNA TEST (07/03/2007 15:02 EDT) Specimen Description Cervix, ThinPrep vial [facility] Result Positive for one or more of HPV types 16,18,31,33,35 ,39,45,51,52,5 6,58,59, or 68. These high/intermedi ate risk HPV types are associated with dysplasia and some cervical cancers. [facility] Report Status Final [id number] [facility] 07/03/2007 15:0 2 EDT 07/11/2007 15:02 EDT Latoya Sánchez HOUSEKEEPER AND LAUNDRY ASSISTANT MICROBIOLOGY - [facility]AL [facility] Final Result [facility] [address] [place] [address] * CYTOPATHOLOGY (07/03/2007 0:00 EDT) Pathology Report: CYTOPATHOLOGY REPORT Reports generated via electronic interface contain original data; however they are lacking the format of the original report. Caution should be taken when reading/interpreti ng unformatted reports. Name: ? ROSSJEROME ? Accession #: ? [id number] : ? 1985 (Age: 22) ??F ?Collect Date: ? 07/03/2007 Location: ? [facility] ? Receive Date: ? 07/04/2007 Provider: ?LATOYA SÁNCHEZ HOUSEKEEPER AND LAUNDRY ASSISTANT Copy to: ? Specimen/Source: ?ThinPrep Pap Test, Cervix/Endocervix, processed on [employer] ThinPrep Imaging System, with manual evaluation Last Menstrual Period: ? Hormonal/Contracep tive Status: ? Oral contraceptives Other: ? HPVA - HPV testing requested if ASC-US on the current ThinPrep Pap test. ? SPECIMEN ADEQUACY ? Satisfactory for Evaluation - transformation zone component present GENERAL CATEGORIZATION ? Epithelial Cell Abnormality INTERPRETATION ? Squamous Cell Abnormality - Atypical squamous cells, undetermined significance (ASC-US). EDUCATIONAL NOTES/RECOMMENDATI ONS ? [facility] recommends following the 2001 Consensus Guidelines for the Management of Women with Cervical Cytological Abnormalities (GARCÍA,2002;287:212 0-9). Management algorithms have been distributed by [facility] and are available online at www.ASCCP.org. ? Document reviewed and electronically signed by: ? Janis Luis MD PhD ? Report Date: ??07/11/2007 13:46 End of Report [facility] 07/03/2007 07/04/2007 us Latoya Sánchez HOUSEKEEPER AND LAUNDRY ASSISTANT PATHOLOGY ORDERABLES Final Result Performing Organization Address City/State/[facility] Co de Phone Number [facility] [address] [place] [address] documented in this encounter Visit Diagnoses Not on filedocumented in this encounter Care Teams Shed Hand Relationship Specialty Start Date End Date Bailey Swartz MD [address] [place] [phone] PCP - General 08/21/09 11/24/11 Irais Mancilla PATrayC [address] [place] [address] PCP - General 02/04/09 08/20/09 documented as of this encounter
--- OUTSIDE RECORDS SUMMARY | 2024-10-25 15:49 | XMS_ITS | Encounter Summary ---
Author Organization [facility] Address [address] [place] [address] Care Team Providers Care Ops Manager Name Role Phone Unavailable Primary Care Provider Unavailabl e Encounter Details Date Type Department Care Team (Late st Contact Info) Description 08/09/2006 9:02 EDT - 08/09/2006 11:59 EDT Hospital Encounter [facility] - Other [address] [place] [address] Wilber Sanchez MD [address] [phone] Discharge Disposition: Home or Self Care [...]
--- OUTSIDE RECORDS SUMMARY | 2024-10-25 15:49 | XMS_ITS | Encounter Summary ---
Author Organization [facility] Address [address] [place] [address] Care Team Providers Care Preparer Making Department Name Role Phone Unavailable Primary Care Provider Unavailabl e Encounter Details Date Type Department Care Team (Late st Contact Info) Description 01/03/2007 11:35 EDT - 01/03/2007 11:59 EDT Hospital Encounter [facility] - Other [address] [place] [address] Wilber Sanchez MD [address] [phone] Discharge Disposition: Home or Self [...]
--- OUTSIDE RECORDS SUMMARY | 2024-10-25 15:49 | XMS_ITS | Encounter Summary ---
Author Organization [facility] Address [address] [place] [address] Care Team Providers Care Air Brush Operator Name Role Phone Monique Gonzalez Primary Care Provider [phone] Encounter Details Date Type Department Care Team (Late st Contact Info) Description 01/25/2013 Results Only [facility] [phone] Dean Stewart DPM [address] [place] [phone] Social History Tobacco Use Types Packs/Day Years [...] on filedocumented in this encounter Care Teams Air Brush Operator Relationship Specialty Start Date End Date Monique Gonzalez PA [address] [place] [address] PCP - General 11/25/11 09/16/14 documented as of this encounter
--- OUTSIDE RECORDS SUMMARY | 2024-10-25 15:49 | XMS_ITS | Encounter Summary ---
Author Organization [facility] Address [address] [place] [address] Care Team Providers Care Machine Tool Designer Name Role Phone Bailey Swartz MD Primary Care Provider [phone] Encounter Details Date Type Department Care Team (Latest Contact Info) Description 06/17/2011 14:30 EDT - 06/17/2011 14:32 EDT Hospital Encounter [address] [address] Sara Rhoades PA Discharge Disposition: Home or [...] on filedocumented in this encounter Care Teams Machine Tool Designer Relationship Specialty Start Date End Date Bailey Swartz MD [address] [place] [phone] PCP - General 08/21/09 11/24/11 documented as of this encounter
--- OUTSIDE RECORDS SUMMARY | 2024-10-25 15:49 | XMS_ITS | Encounter Summary ---
Author Organization [facility] Address [address] [place] [address] Care Team Providers Care Infantry Officer Name Role Phone Monique Gonzalez Primary Care Provider [phone] Encounter Details Date Type Department Care Team (Latest Contact Info) Description 08/06/2013 11:42 EDT - 08/06/2013 22:00 EDT Hospital Encounter [address] [address] Emmanuelle Ochoa PA [address],[facility] [address] [place] [address] Discharge Disposition: Home or Self Care Social History Tobacco Use Types Packs/Day Years Used Date Smoking Tobacco: Never Assessed Comments Unknown Sex and Gender Information Value Date Recorded Sex Assigned at Not on file Legal Sex Female 18:30 EST Gender Identity Not on file Sexual Orientation Not on file documented as of this encounter Discharge Diagnoses Diagnosis 692.9 DERMATITIS NOS[ICD-9-CM] documented in this encounter Medications at Time [...] on filedocumented in this encounter Care Teams Infantry Officer Relationship Specialty Start Date End Date Monique Gonzalez PA [address] [place] [address] [place] [address] PCP - General 11/25/11 09/16/14 documented as of this encounter
--- OUTSIDE RECORDS SUMMARY | 2024-10-25 15:49 | XMS_ITS | Encounter Summary ---
Author Organization [facility] Address [address] [place] [address] Care Team Providers Care Ticket Scheduler Name Role Phone Monique Gonzalez Primary Care Provider [phone] Encounter Details Date Type Department Care Team (Latest Contact Info) Description 09/18/2013 12:21 EST - 09/18/2013 12:25 [facility] Hospital Encounter [address] [address] Emmanuelle Ochoa PA [address],[facility] [address] [place] [address] Discharge Disposition: Home or Self Care Social History Tobacco Use Types Packs/Day Years Used Date Smoking Tobacco: Never Assessed Comments Unknown Sex and Gender Information Value Date Recorded Sex Assigned at Not on file Legal Sex Female 18:30 EST Gender Identity Not on file Sexual Orientation Not on file documented as of this encounter Discharge Diagnoses Diagnosis 692.9 DERMATITIS NOS[ICD-9-CM] 698.9 PRURITIC DISORDER NOS[ICD-9-CM] documented in this encounter Medications at [...] on filedocumented in this encounter Care Teams Ticket Scheduler Relationship Specialty Start Date End Date Monique Gonzalez PA [address] [place] [phone] PCP - General 11/25/11 09/16/14 documented as of this encounter
--- OUTSIDE RECORDS SUMMARY | 2024-10-25 15:49 | XMS_ITS | Encounter Summary ---
Author Organization [facility] Address [address] [place] [address] Care Team Providers Care User Experience Analyst Name Role Phone Bailey Swartz MD Primary Care Provider [phone] Encounter Details Date Type Department Care Team (Late st Contact Info) Description 01/28/2010 13:44 EDT - 01/28/2010 13:45 EDT Hospital Encounter [facility] - Other [address] [place] [address] Kath Vazquez, SPIKE DRIVER [address] [place] [phone] Discharge Disposition: Home-Health Care Svc Social History [...] on filedocumented in this encounter Care Teams User Experience Analyst Relationship Specialty Start Date End Date Bailey Swartz MD [address] [place] [phone] PCP - General 08/21/09 11/24/11 documented as of this encounter
--- OUTSIDE RECORDS SUMMARY | 2024-10-25 15:50 | XMS_ITS | Encounter Summary ---
Author Organization [facility] Address [address] [place] [address] Care Team Providers Care Teacher Of Gifted Students Name Role Phone Bailey Swartz MD Primary Care Provider [phone] Irais Mancilla PA-C Primary Care Provider Encounter Details Date Type Department Care Team (Late st Contact Info) Description 10/26/2005 Results Only [facility] [address] [place], [place] [id number] Rod Webb MD [address] [facility], [address] [place] [address] Social History Tobacco Use Types [...] Date/Time Associated Diagnosis Comments SURGICAL PATHOLOGY Routine 10/26/2005 0:00 EST documented in this encounter Results * SURGICAL PATHOLOGY (10/26/2005 0:00 EST) Pathology Report: SURGICAL PATHOLOGY REPORT Reports generated via electronic interface contain original data; however they are lacking the format of the original report. Caution should be taken when reading/interpreting unformatted reports. Name: ? JEROME ROSS ? Accession #: ? [id number] ? : ? 1985 (Age: 20) ??F ? Collect Date: ? 10/26/2005 ? Location: ? [facility] ? Receive Date: ? 10/27/2005 ? Provider: ROD WEBB MD Copy to: ? Final Pathologic Diagnosis: ? Cervix, 12 o' clock, biopsy: ? 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 ??See comment. Comment: ? This case was reviewed at intradepartmental consultation conference. ??(Dr. Cox)/[facility] Document reviewed and electronically signed by: May Cox MD Report ??Date: 10/28/2005 16:55 By the signature above, the attending physician certifies that he/she has personally conducted a gross and/or microscopic examination of the described specimens and rendered or confirmed the above diagnosis. Specimen(s) Received: ? Cxbx 12 o'clock Clinical History: ? LGSIL; LMP: 08/29/05; clinical diagnosis code: 795.03 Gross Description: ? Received in formalin labeled Ross and cx bx 12 o'clock is a romero-pink 0.4 x 0.4 x 0.3 cm soft tissue fragment. ??The specimen is entirely submitted in one cassette. (Estefany Nguyen/viktoria End of Report [facility] 10/26/2005 10/27/2005 9:2 1 EST us Rod Webb MD PATHOLOGY ORDERABLES Final Result [facility] [address] [place] [address] documented in this encounter Visit Diagnoses Not on filedocumented in this encounter Care Teams Teacher Of Gifted Students Relationship Specialty Start Date End Date Bailey Swartz MD [address] [phone] PCP - General 08/21/09 11/24/11 Irais Mancilla, PATrayC [address] [place] [phone] PCP - General 02/04/09 08/20/09 documented as of this encounter
--- OUTSIDE RECORDS SUMMARY | 2024-10-25 15:50 | XMS_ITS | Encounter Summary ---
Author Organization [facility] Address [address] [place] [address] Care Team Providers Care Insurance Account Manager Name Role Phone Unavailable Primary Care Provider Unavailabl e Encounter Details Date Type Department Care Team (Latest Contact Info) Description 08/27/2005 23:20 EST Hospital Encounter [facility] - Other [address] [place] [address] Magdalena Richardson, STARR [address] [place] [address] [place] [address] Discharge Disposition: Home or Self Care Social [...]
--- OUTSIDE RECORDS SUMMARY | 2024-10-25 15:50 | XMS_ITS | Encounter Summary ---
Author Organization [facility] Address [address] [place] [address] Care Team Providers Care Agronomy Instructor Name Role Phone Unavailable Primary Care Provider Unavailabl e Encounter Details Date Type Department Care Team (Late st Contact Info) Description 07/09/2003 11:22 EDT Hospital Encounter [facility] - Other [address] [place] [address] Phyllis Hernandez, SOCIAL SERVICE MANAGER [address] [place] [address] Social History Tobacco Use Types Packs/Day Years [...] Name Priority Date/Time Associated Diagnosis Comments KNEE 3 VIEWS Routine 08/23/2003 15:48 EST KNEE 4 OR MORE VIEWS Routine 08/23/2003 15:48 EST CYTOPATHOLOGY Routine 07/09/2003 0:00 EDT documented in this encounter Results * KNEE 3 VIEWS (08/23/2003 15:48 EST) Anatomical Region Laterality Modality Other 08/23/2003 15:4 8 EST Narrative 06/16/2009 3:41 EDT RT KNEE PAIN IS A RUNNER R/O BONY ABN. RIGHT KNEE, FOUR VIEWS, AND LEFT KNEE, THREE VIEWS FINDINGS: Both knees demonstrate normal alignment. There are no pathologic soft tissue calcifications. The joint spaces are preserved. No fractures or stress fractures are demonstrated. IMPRESSIONS: Unremarkable bilateral knees. /tns Procedure Note Aidan Parr MD - 06/16/2009 RT KNEE PAIN IS A RUNNER R/O BONY ABN. RIGHT KNEE, FOUR VIEWS, AND LEFT KNEE, THREE VIEWS FINDINGS: Both knees demonstrate normal alignment. There are no pathologic soft tissue calcifications. The joint spaces are preserved. No fractures or stress fractures are demonstrated. IMPRESSIONS: Unremarkable bilateral knees. /tns Zacarias Alves III, ANP [facility] IMAG[facility] O RDERABLES Final Result * KNEE 4 OR MORE VIEWS (08/23/2003 15:48 EST) Anatomical Region Laterality Modality Other 08/23/2003 15:4 8 EST Narrative 06/16/2009 3:41 EDT RT KNEE PAIN IS A RUNNER R/O BONY ABN. Procedure Note Aidan Parr MD - 06/16/2009 RT KNEE PAIN IS A RUNNER R/O BONY ABN. Zacarias Avles III, ANP [facility] IMAG[facility] O RDERABLES Final Result * CYTOPATHOLOGY (07/09/2003 0:00 EDT) Pathology Report: CYTOPATHOLOGY REPORT Reports generated via electronic interface contain original data; however they are lacking the format of the original report. Caution should be taken when reading/interpreti ng unformatted reports. Name: ? JEROME ROSS ? Accession #: ? [id number] : ? 1985 (Age: 18) ??F ?Collect Date: ? 07/09/2003 Location: ? [facility] ? Receive Date: ? 07/11/2003 Provider: ?PHYLLIS HERNANDEZ GARNISHER Copy to: ?KATJA DALEY MD ? Specimen/Source: ?ThinPrep Pap Test, Cervix/Endocervix Last Menstrual Period: ? 06/27/03 Hormonal/Contracep tive Status: ? Oral contraceptives ? SPECIMEN ADEQUACY ? Satisfactory for Evaluation - transformation zone component absent GENERAL CATEGORIZATION ? Negative for Intraepithelial Lesion or Malignancy ? Document reviewed and electronically signed by: ? JAMAL Iniguez(ASCP) ? Report Date: ??07/15/2003 10:15 End of Report [facility] 07/09/2003 07/11/2003 Phyllis Hernandez APRN PATHOLOGY ORDERABLES Final Re sult [facility] [address] [place] [address] documented in this encounter Visit Diagnoses Not on filedocumented in this encounter
--- OUTSIDE RECORDS SUMMARY | 2024-10-25 15:50 | XMS_ITS | Encounter Summary ---
Author Organization [facility] Address [address] [place] [address] Care Team Providers Care Ski Lift Operator Name Role Phone Unavailable Primary Care Provider Unavailabl e Encounter Details Date Type Department Care Team (Latest Contact Info) Description 09/13/2005 12:56 EST Hospital Encounter [facility] - Other [address] [place] [address] Phyllis Hernandez, AEROPHYSICIST [address] [place] [address] Discharge Disposition: Home or Self Care Social [...]
--- OUTSIDE RECORDS SUMMARY | 2024-10-25 15:50 | XMS_ITS | Encounter Summary ---
Author Organization [facility] Address [address] [place] [address] Care Team Providers Care Is Support Analyst Name Role Phone Bailey Swartz MD Primary Care Provider Irais Mancilla PA-C Primary Care Provider Encounter Details Date Type Department Care Team (Late st Contact Info) Description 07/02/2004 Results Only [facility] [place] [facility] [address] [place] [address] Julián Marcos, TENNIS CAMP INSTRUCTOR [address] [place], [place] [phone] Social History Tobacco Use Types Packs/Day Years [...] Priority Date/Time Associated Diagnosis Comments CYTOPATHOLOGY Routine 07/02/2004 0:00 EDT documented in this encounter Results * CYTOPATHOLOGY (07/02/2004 0:00 EDT) Pathology Report: CYTOPATHOLOGY REPORT Reports generated via electronic interface contain original data; however they are lacking the format of the original report. Caution should be taken when reading/interpreti ng unformatted reports. Name: ? JEROME ROSS ? Accession #: ? [id number] : ? 1985 (Age: 19) ??F ?Collect Date: ? 07/02/2004 Location: ? [facility] ? Receive Date: ? 07/03/2004 Provider: ?JULIÁN MARCOS PAYROLL PROCESSOR Copy to: ? Specimen/Source: ?ThinPrep Pap Test, Cervix/Endocervix Last Menstrual Period: ? 06/22/04 Hormonal/Contracep tive Status: ? Oral contraceptives Other: ? HPVA - HPV testing requested if ASC-US on the current ThinPrep Pap test. ? SPECIMEN ADEQUACY ? Satisfactory for Evaluation - transformation zone component absent GENERAL CATEGORIZATION ? Negative for Intraepithelial Lesion or Malignancy ? Document reviewed and electronically signed by: ? MICKY Stone(ASCP) ? Report Date: ??07/10/2004 10:01 End of Report [facility] 07/02/2004 07/03/2004 us Julián Marcos APRN PATHOLOGY ORDERABLES Final Re sult [facility] [address] [place] [address] documented in this encounter Visit Diagnoses Not on filedocumented in this encounter Care Teams Is Support Analyst Relationship Specialty Start Date End Date Bailey Swartz MD [address] [facility] [address] [place] [phone] PCP - General 08/21/09 11/24/11 Irais Mancilla PA-C [address] [place] [phone] PCP - General 02/04/09 08/20/09 documented as of this encounter
--- OUTSIDE RECORDS SUMMARY | 2024-10-25 15:50 | XMS_ITS | Encounter Summary ---
Author Organization [facility] Address [address] [place] [address] Care Team Providers Care Call Taker Name Role Phone Unavailable Primary Care Provider Unavailabl e Encounter Details Date Type Department Care Team (Late st Contact Info) Description 09/20/2003 22:11 EST Hospital Encounter [facility] - Other [address] [place] [address] Lisa Fragoso, VACUUM CLEANER ASSEMBLER [address] [place] [address] Social History Tobacco Use Types Packs/Day Years [...] Procedure Name Priority Date/Time Associated Diagnosis Comments MONO-TEST Routine 07/23/2004 8:05 EDT COMPLETE BLOOD COUNT Routine 07/23/2004 8:05 EDT LIPID PROFILE (INCLUDES CHOLESTEROL, TRIGLYCERIDES, HDL, LDL) Routine 07/23/2004 8:05 EDT BASIC METABOLIC PANEL (BMP) Routine 07/23/2004 8:05 EDT documented in this encounter Results * MONO-TEST (07/23/2004 8:05 EDT) [place]-Test Neg NEG [facility] 07/23/2004 8:05 EDT 07/23/2004 19:38 EDT Phyllis Hernandez APRN CHEMISTRY & BLOOD GAS ORDERAB LES Final Result Performing Organization Address [facility] de Phone Number [facility] [address] [place] [address] * LIPID PROFILE (INCLUDES CHOLESTEROL, TRIGLYCERIDES, HDL, LDL) (07/23/2004 8:05 EDT) Cholesterol 165 mg/dl [facility] Comment: Desirable:<200 Borderline:200-239 High Risk:>[id number] Triglycerides 113 35 - 160 mg/dl [facility] HDL 63 mg/dl [facility] Comment: Highly Desirable:>60 Desirable:35-60 High Risk:<35 LDL, Calculated 79 mg/dl [facility] Comment: Desirable:<130 Borderline:130-159 High Risk:>aj=315 Chol/HDL Ratio 2.6 [facility] 07/23/2004 8:05 EDT 07/23/2004 19:38 EDT Phyllis Hernandez APRN CHEMISTRY & BLOOD GAS ORDERAB LES Final Result Performing Organization Address [facility] de Phone Number [facility] [address] [place] [address] * HEMAGRAM (07/23/2004 8:05 EDT) WBC 8.52 4.0 - 12.4 K/cmm [facility] RBC 4.37 3.86 - 5.04 M/cmm [facility] Hemoglobin 13.6 11.6 - 15.2 gm/dl [facility] HCT 40.1 34.9 - 44.4 % [facility] MCV 92 81 - 98 fl [facility] MCH 31.1 26.7 - 33.3 pg [facility] MCHC 33.8 32.1 - 35.9 gm/dl [facility] PLT 295 141 - 320 K/cmm [facility] RDW-CV 13.0 11.7 - 14.6 % [facility] 07/23/2004 8:05 EDT 07/23/2004 19:38 EDT Phyllis Hernandez APRN HEMATOLOGY & PF4 ORDERABLES F inal Result Performing Organization Address [facility] Co de Phone Number [facility] [address] [place] [address] * BASIC METABOLIC PANEL (07/23/2004 8:05 EDT) Sodium 141 136 - 145 mEq/L [facility] Potassium 4.0 3.5 - 5.0 mEq/L [facility] Chloride 105 96 - 110 mEq/L [facility] CO2 27 24 - 32 mEq/L [facility] BUN 11 10 - 26 mg/dl [facility] Creatinine 0.9 0.7 - 1.5 mg/dl [facility] Calcium 9.0 8.5 - 10.5 mg/dl [facility] Calculated Calcium 9.1 8.5 - 10.5 mg/dl [facility] Glucose, Serum 90 70 - 110 mg/dl [facility] 07/23/2004 8:05 EDT 07/23/2004 19:38 EDT Phyllis Hernandez APRN CHEMISTRY & BLOOD GAS ORDERAB LES Final Result Performing Organization Address [facility] Co de Phone Number [facility] [address] [place] [address] documented in this encounter Visit Diagnoses Not on filedocumented in this encounter
--- OUTSIDE RECORDS SUMMARY | 2024-10-25 15:50 | XMS_ITS | Encounter Summary ---
Author Organization [facility] Address [address] [place] [address] Care Team Providers Care Job Development Specialist Name Role Phone Unavailable Primary Care Provider Unavailabl e Encounter Details Date Type Department Care Team (Late st Contact Info) Description 07/02/2004 8:53 EDT Hospital Encounter [facility] - Other [address] [place] [address] Phyllis Hernandez, NATURAL FABRICATOR [address] [place] [address] Social History Tobacco Use Types Packs/Day Years [...]
--- OUTSIDE RECORDS SUMMARY | 2024-10-25 15:50 | XMS_ITS | Encounter Summary ---
Author Organization [facility] Address [address] [place] [address] Care Team Providers Care Furnishings Conservator Name Role Phone Unavailable Primary Care Provider Unavailabl e Encounter Details Date Type Department Care Team (Late st Contact Info) Description 12/06/2005 14:45 EST Hospital Encounter [facility] - Map conversion [address] [place] [address] Anshul Campos MD [address] [facility] [address] [place] [address] Discharge Disposition: Auto Discharge Social History Tobacco [...] Destination Auto Discharge documented in this encounter Plan of Treatment Not on file documented as of this encounter Procedures Procedure Name Priority Date/Time Associated Diagnosis Comments FOOT 3 OR MORE VIEWS 12/06/2005 15:30 EST documented in this encounter Results * FOOT 3 OR MORE VIEWS (12/06/2005 15:30 EST) Anatomical Region Laterality Modality Other 12/06/2005 15:3 0 EST Narrative 05/16/2009 2:40 EDT RIGHT FOOT INJ, DOI 2-4-06 R/O BONY ABN. 3 VIEWS OF THE RIGHT FOOT No comparison. CLINICAL HISTORY: ?? Date of injury: ??11/20/05. ??Rule out bony abnormality. FINDINGS: Three views of the right foot are negative for fracture or dislocation. D: ??12/09/05 T: ??12/10/05 dw I have personally reviewed the images and the above interpretation and agree with the findings. Procedure Note Tato Domingo DDS / Chidi Howell MD - 05/16/2009 RIGHT FOOT INJ, DOI 2 R/O BONY ABN. 3 VIEWS OF THE RIGHT FOOT No comparison. CLINICAL HISTORY: Date of injury: 11/20/05. Rule out bony abnormality. FINDINGS: Three views of the right foot are negative for fracture or dislocation. dw I have personally reviewed the images and the above interpretation and agree with the findings. us Anshul Campos MD IMG DIAGNOSTIC IMAGING ORDERABL ES Final Result documented in this encounter Visit Diagnoses Not on filedocumented in this encounter
--- OUTSIDE RECORDS SUMMARY | 2024-10-25 15:50 | XMS_ITS | Encounter Summary ---
Author Organization [facility] Address [address] [place] [address] Care Team Providers Care Music Assistant Name Role Phone Unavailable Primary Care Provider Unavailabl e Encounter Details Date Type Department Care Team (Latest Contact Info) Description 10/24/2003 7:59 EST - 10/24/2003 11:59 EST Hospital Encounter [address] [address] Zacarias Alves III, ANP [address] [place] [phone] Discharge Disposition: Auto Discharge Social History Tobacco [...]
--- OUTSIDE RECORDS SUMMARY | 2024-10-25 15:50 | XMS_ITS | Encounter Summary ---
Author Organization [facility] Address [address] [place] [address] Care Team Providers Care Slip Cover Maker Name Role Phone Unavailable Primary Care Provider Unavailabl e Encounter Details Date Type Department Care Team (Latest Contact Info) Description 08/23/2003 16:24 EST Hospital Encounter [facility] - [place] conversion [address] [place] [address] Zacarias Alves III, ANP [address] [facility] [place] [address] Discharge Disposition: Auto Discharge Social History Tobacco [...]
--- OUTSIDE RECORDS SUMMARY | 2024-10-25 15:50 | XMS_ITS | Encounter Summary ---
Author Organization [facility] Address [address] [place] [address] Care Team Providers Care Tying Machine Operator Name Role Phone Unavailable Primary Care Provider Unavailabl e Encounter Details Date Type Department Care Team (Latest Contact Info) Description 11/01/2003 14:13 EST - 11/16/2003 11:59 EST Hospital Encounter [facility] - [place] conversion [address] [place] [address] Zacarias Alves III, ANP [address] [facility] [place] [address] Discharge Disposition: Auto Discharge Social [...]
--- OUTSIDE RECORDS SUMMARY | 2024-10-25 15:50 | XMS_ITS | Encounter Summary ---
Author Organization [facility] Address [address] [place] [address] Care Team Providers Care Diversified Crops I Farmworker Name Role Phone Unavailable Primary Care Provider Unavailabl e Encounter Details Date Type Department Care Team (Late st Contact Info) Description 06/29/2005 18:28 EDT Hospital Encounter [facility] - Other [address] [place] [address] Irina Schuster MD Masson, Mary Y, RETREAD BUILDER [address] [place] [phone] Discharge Disposition: Auto Discharge Social History Tobacco [...] Procedure Name Priority Date/Time Associated Diagnosis Comments COMPLETE BLOOD COUNT AND DIFFERENTIAL Routine 06/29/2005 9:00 EDT COMPLETE BLOOD COUNT AND DIFFERENTIAL Routine 06/29/2005 9:00 EDT QUANT BETA HCG, Routine 06/29/2005 9:00 EDT TRIGLYCERIDE Routine 06/29/2005 9:00 EDT ALT Routine 06/29/2005 9:00 EDT AST Routine 06/29/2005 9:00 EDT CHOLESTEROL Routine 06/29/2005 9:00 EDT documented in this encounter Results * (ABNORMAL) TRIGLYCERIDE (06/29/2005 9:00 EDT) Pathologist [facility] Triglycerides 176(H) 35 - 160 mg/dl [facility] 06/29/2005 9:00 EDT 06/29/2005 18:03 EDT Lisa Fragoso RETREAD BUILDER CHEMISTRY & BLOOD GAS ORDERABLE S Final Result Performing Organization Address [facility] Co de Phone Number [facility] [address] [place] [address] * HCG (06/29/2005 9:00 EDT) [facility] HCG <4 <4 mIU/ml [facility] Comment: Reference Range: Positive = >10 Borderline = 4-10 recommend repeat. Negative = <4 06/29/2005 9:00 EDT 06/29/2005 18:03 EDT Lisa Fragoso RETREAD BUILDER CHEMISTRY & BLOOD GAS ORDERABLE S Final Result Performing Organization Address [facility] Co de Phone Number [facility] [address] [place] [address] * (ABNORMAL) HEMAGRAM AND DIFFERENTIAL (06/29/2005 9:00 EDT) Pathologist [facility] % Neutrophils 46.2 45.5 - 79.7 % [facility] % Lymphocytes 44.0 15.0 - 46.8 % [facility] % Monocytes 7.4 1.8 - 12.0 % [facility] % Eosinophils 2.1 0.6 - 6.9 % [facility] % Basophils 0.3 0.2 - 1.4 % [facility] ABS Neutrophils 3.75 2.20 - 8.85 K/cmm [facility] ABS Lymphs 3.57(H) 1.09 - 3.30 K/cmm [facility] ABS Monocytes 0.60 0.1 - 0.8 K/cmm [facility] ABS Eosinophils 0.17 0.03 - 0.61 K/cmm [facility] ABS Basophils 0.02 0.01 - 0.11 K/cmm [facility] Type of Diff: Automated [facility] 06/29/2005 9:00 EDT 06/29/2005 18:03 EDT Lisa Fragoso RETREAD BUILDER PACKAGES & DNA PROBE ORDERABLES Final Result Performing Organization Address [facility] de Phone Number [facility] [address] [place] [address] * CHOLESTEROL (06/29/2005 9:00 EDT) Pathologist [facility] Cholesterol 194 mg/dl [facility] Comment: Desirable:<200 Borderline:200-239 High Risk:>qc=327 06/29/2005 9:00 EDT 06/29/2005 18:03 EDT Lisa Fragoso RETREAD BUILDER CHEMISTRY & BLOOD GAS ORDERABLE S Final Result Performing Organization Address [facility] de Phone Number [facility] [address] [place] [address] * HEMAGRAM AND DIFFERENTIAL (06/29/2005 9:00 EDT) WBC 8.12 4.0 - 12.4 K/cmm [facility] RBC 4.26 3.86 - 5.04 M/cmm [facility] Hemoglobin 13.2 11.6 - 15.2 gm/dl [facility] HCT 38.6 34.9 - 44.4 % [facility] MCV 90 81 - 98 fl [facility] MCH 30.9 26.7 - 33.3 pg [facility] MCHC 34.2 32.1 - 35.9 gm/dl [facility] PLT 317 141 - 320 K/cmm [facility] RDW-CV 12.5 11.7 - 14.6 % [facility] 06/29/2005 9:00 EDT 06/29/2005 18:03 EDT us Lisa Fragoso RETREAD BUILDER PACKAGES & DNA PROBE ORDERABLES Final Result Performing Organization Address [facility] de Phone Number [facility] [address] [place] [address] * AST (06/29/2005 9:00 EDT) AST 27 15 - 46 U/L [facility] 06/29/2005 9:00 EDT 06/29/2005 18:03 EDT us Lisa Fragoso RETREAD BUILDER CHEMISTRY & BLOOD GAS ORDERABLE S Final Result Performing Organization Address [facility] de Phone Number [facility] [address] [place] [address] * ALT (06/29/2005 9:00 EDT) ALT 24 9 - 52 U/L [facility] 06/29/2005 9:00 EDT 06/29/2005 18:03 EDT us Lisa Fragoso RETREAD BUILDER CHEMISTRY & BLOOD GAS ORDERABLE S Final Result Performing Organization Address [facility] de Phone Number [facility] [address] [place] [address] documented in this encounter Visit Diagnoses Not on filedocumented in this encounter
--- OUTSIDE RECORDS SUMMARY | 2024-10-25 15:50 | XMS_ITS | Encounter Summary ---
Author Organization [facility] Address [address] [place] [address] Care Team Providers Care Newspaper Clipper Name Role Phone Unavailable Primary Care Provider Unavailabl e Encounter Details Date Type Department Care Team (Latest Contact Info) Description 11/22/2005 21:34 EST Hospital Encounter [facility] [address] [place] [address] Emergency, Default, MD Discharge Disposition: Home or Self Care Social [...]
--- OUTSIDE RECORDS SUMMARY | 2024-10-25 15:50 | XMS_ITS | Encounter Summary ---
Author Organization [facility] Address [address] [place] [address] Care Team Providers Care Auditing Manager Name Role Phone Unavailable Primary Care Provider Unavailabl e Encounter Details Date Type Department Care Team (Latest Contact Info) Description 09/02/2003 21:27 EST Hospital Encounter [facility] [address] [place] [address] Zacarias Alves III, ANP [address] [place] [address] Discharge Disposition: Auto Discharge Social [...] Procedure Name Priority Date/Time Associated Diagnosis Comments MR LOWER EXT JOINT WO CONTRAST Routine 09/02/2003 22:02 EST documented in this encounter Results * MR LOWER EXT JOINT WO CONTRAST (09/02/2003 22:02 EST) Anatomical Region Laterality Modality Other 09/02/2003 22:0 2 EST Impressions 06/16/2009 1:44 EDT IMPRESSION: No evidence of meniscal tear is seen. No joint effusion or synovitis is seen. Mild tendinosis of the medial gastrocnemius at its femoral attachment. /[facility] Narrative 06/16/2009 1:44 EDT RIGHT KNEE PAIN R/O LATERAL MENISCUS TEAR MRI OF THE RIGHT KNEE, 09/02/03 CLINICAL HISTORY: Right knee pain, rule out lateral meniscal tear. TECHNIQUE: Sagittal and coronal proton density and fat-saturated and axial proton density weighted images of the knee were obtained. FINDINGS: Sagittal alignment of the knee is anatomic. There is no evidence of occult fracture, avascular necrosis, or contusion. There is no significant knee joint effusion or evidence of synovitis. The extensor mechanism is intact. Anterior and posterior cruciate ligament, the medial and lateral collateral ligament, popliteus tendon origin, biceps femoris attachment, and iliotibial bands are intact. The menisci are morphologically within normal limits. No evidence of discoid meniscus is seen. No grade 3 signal is seen to suggest meniscal tear. Cartilaginous surfaces are unremarkable. No evidence of cartilage loss is seen. No significant chondromalacia is seen. Alignment of the proximal tibiofibular joint is anatomic. There is no significant effusion. The patellofemoral alignment is anatomic. The patellar retinacula are intact. There is mild tendinosis of the origin of the medial head gastrocnemius and mild thickening of the adjacent cortex, likely related to chronic repetitive trauma. Procedure Note Ricardo Higuera, PT - 06/16/2009 RIGHT KNEE PAIN R/O LATERAL MENISCUS TEAR MRI OF THE RIGHT KNEE, 09/02/03 CLINICAL HISTORY: Right knee pain, rule out lateral meniscal tear. TECHNIQUE: Sagittal and coronal proton density and fat-saturated and axial proton density weighted images of the knee were obtained. FINDINGS: Sagittal alignment of the knee is anatomic. There is no evidence of occult fracture, avascular necrosis, or contusion. There is no significant knee joint effusion or evidence of synovitis. The extensor mechanism is intact. Anterior and posterior cruciate ligament, the medial and lateral collateral ligament, popliteus tendon origin, biceps femoris attachment, and iliotibial bands are intact. The menisci are morphologically within normal limits. No evidence of discoid meniscus is seen. No grade 3 signal is seen to suggest meniscal tear. Cartilaginous surfaces are unremarkable. No evidence of cartilage loss is seen. No significant chondromalacia is seen. Alignment of the proximal tibiofibular joint is anatomic. There is no significant effusion. The patellofemoral alignment is anatomic. The patellar retinacula are intact. There is mild tendinosis of the origin of the medial head gastrocnemius and mild thickening of the adjacent cortex, likely related to chronic repetitive trauma. IMPRESSION IMPRESSION: No evidence of meniscal tear is seen. No joint effusion or synovitis is seen. Mild tendinosis of the medial gastrocnemius at its femoral attachment. /[facility] us Zacarias Jagruti Joselyn III, ANP IMG MRI ORDERABLES Final Result documented in this encounter Visit Diagnoses Not on filedocumented in this encounter
--- OUTSIDE RECORDS SUMMARY | 2024-10-25 15:50 | XMS_ITS | Encounter Summary ---
Author Organization [facility] Address [address] [place] [address] Care Team Providers Care Research Program Assistant Name Role Phone Unavailable Primary Care Provider Unavailabl e Encounter Details Date Type Department Care Team (Late st Contact Info) Description 12/09/2005 11:01 EST - 12/09/2005 11:59 EST Hospital Encounter [address] [address] Anshul Campos MD [address] [facility] [address] [place] [address] Discharge Disposition: Auto Discharge Social [...] Name Priority Date/Time Associated Diagnosis Comments NM BONE SCAN 3 PHASE 12/09/2005 11:57 EST documented in this encounter Results * NM BONE SCAN 3 PHASE (12/09/2005 11:57 EST) Anatomical Region Laterality Modality Other 12/09/2005 11:5 7 EST Narrative 05/16/2009 2:40 EDT RIGHT FOOT PAIN 3-PHASE BONE SCAN: ?? 12/09/05 CLINICAL INDICATION: ?? Right foot pain; history of pain while running. ??Rule out stress fracture. TECHNIQUE: After the IV injection of 22 mCi Tc-99m MDP, immediate flow study and blood pool images were obtained of the lower legs and feet bilaterally. ??Delayed standard images are obtained at 2-1/2 hours. FINDINGS: Flow and blood pool images show no abnormality. ??On the delayed images there is mild increased activity in the mid-tarsal area of the left foot but no abnormality is identified in the right foot, which is the patient's stated area of pain. ??Abnormal activity in the left foot is therefore likely due to alterations in weightbearing. IMPRESSION: 1. No stress fracture identified in the right foot. 2. Evidence of altered weightbearing in the left foot. D: ??12/09/05 T: ??12/10/05 britney I have personally reviewed the images and the above interpretation and agree with the findings. Procedure Note Gene Booth MD / Gary Chawla MD - 05/16/2009 RIGHT FOOT PAIN 3-PHASE BONE SCAN: 12/09/05 CLINICAL INDICATION: Right foot pain; history of pain while running. Rule out stress fracture. TECHNIQUE: After the IV injection of 22 mCi Tc-99m MDP, immediate flow study and blood pool images were obtained of the lower legs and feet bilaterally. Delayed standard images are obtained at 2-1/2 hours. FINDINGS: Flow and blood pool images show no abnormality. On the delayed images there is mild increased activity in the mid-tarsal area of the left foot but no abnormality is identified in the right foot, which is the patient's stated area of pain. Abnormal activity in the left foot is therefore likely due to alterations in weightbearing. IMPRESSION: 1. No stress fracture identified in the right foot. 2. Evidence of altered weightbearing in the left foot. britney I have personally reviewed the images and the above interpretation and agree with the findings. us Anshul Campos MD IMG NM ORDERABLES Final Result documented in this encounter Visit Diagnoses Not on filedocumented in this encounter
--- OUTSIDE RECORDS SUMMARY | 2024-10-25 15:50 | XMS_ITS | Encounter Summary ---
Author Organization [facility] Address [address] [place] [address] Care Team Providers Care Drafter Refrigeration Name Role Phone Bailey Swartz MD Primary Care Provider Irais Mancilla PA-C Primary Care Provider Encounter Details Date Type Department Care Team (Late st Contact Info) Description 11/22/2005 Office Visit [facility] - [place] conversion [address] [place] [address] Tarah Wright MD [address] [place] [id number] Social History Tobacco Use Types Packs/Day Years Used Date Smoking Tobacco: Never Assessed Comments Unknown Sex and Gender Information Value Date Recorded Sex Assigned at Not on file Legal Sex Female 18:30 EST Gender Identity Not on file Sexual Orientation Not on file documented as of this encounter Progress Notes * Sergio, Conv Pocket And Pulley Machine Operator - 12/17/2009 194 EST Department - Physician Summary Registration Date/Time: 11/22/2005 21:27 Time Seen: 22:03 . Arrived- By private vehicle. Historian - patient. HISTORY OF PRESENT ILLNESS Chief Complaint- Injury to the right foot. The injury happened 2 days ago. (while running). No direct trauma. Patient is experiencing moderate pain. Patient denies injury to the head or neck. No other injury. REVIEW OF SYSTEMS The patient complains of pain on weight bearing. No swelling, tingling, weakness, numbness or suspected foreign body. No skin laceration. PAST HISTORY Previous knee problems. Medications: See nurses notes. Allergies: Seenurses notes. SOCIAL HISTORY Residence: student at [employer]. ADDITIONAL NOTES The nursing notes have been reviewed. PHYSICAL EXAM Appearance: Alert. Oriented X3. No acute distress. Vital Signs: Have been reviewed - Head: Head atraumatic. Respiratory: No respiratory distress. Extremities: Right dorsal foot: mild tenderness and swelling of the distal aspect aspect of the dorsal foot. Neurovascular intact distally. No erythema, laceration, abrasion, puncture wound or ecchymosis. No deformity. No limitation in movement. Extremities otherwise negative. Neuro, Vascular and Tendons: Vascular status intact. Sensation intact. Motor intact. Tendon function intact. Neuro: Oriented X 3. PROGRESS AND PROCEDURES E.D. Course: Pt denies direct trauma to foot. Pt states she was running on Tuesday when felt some mild discomfort in her right foot. Pt able to continue running. Now has increased pain dorsum of foot distal 1st MT to 2nd MT. Pt advised of possible stress fracture. Agrees to trial conservative therapy for next week. Followup with Ortho clinic or return to ED for xrays if pain persistent despite conservative management. ED Attending on duty and available for supervision: Ruchi Gunter. Disposition: Discharged home. Condition: good. Discharged home in good condition. CLINICAL IMPRESSION Sprained right foot . INSTRUCTIONS Apply ice intermittently (15-20 minutes at a time 4-6 times daily). Use crutches for five until better. Wear elastic wrap as directed. No strenuous activity ( right foot for next week. ). No weight bearing on right leg for five days. You may have a stress fracture in your foot. If pain persists despite crutches, rest, ice, elevation and ibuprofen then you need to be rechecked. Warnings: GENERAL WARNINGS: Return or contact your physician immediately if your condition worsens or changesunexpectedly, if not improving as expected, or if other problems arise. OTC Medications: Motrin IB 200 mg (available over the counter): take 3 orally every 8 hours as needed for pain. Follow-up: Follow up with Doctor Syed Kraft PA-C, Orthopedics, [phone] call for appointment in two weeks. Understanding of the discharge instructions verbalized by patient. (Electronically signed by Laura Cruz 11/23/2005 17:20) Department - Nursing Summary Registration Date/Time: 11/22/2005 21:27 TRIAGE Initial Assessment Triage time 21:28 Nov 22 2005 . Acuity: LEVEL 4. BP: 138 / 68. HR: 80. RR: 18. Temp: 37.4 tympanic. Alert. --2130 Mattie Lomeli R.N. Medications ( effexor, seasonal). --2130 Mattie Lomeli R.N. Allergies No known drug allergies. --2130 Mattie Lomeli R.N. History Chief Complaint: Location of injuries (Rt foot pain ). This occurred ( Tuesday ). ( Pt to the emergency department with right foot pain. States that she has had foot pain since running and twisting foot. Has noted ongoing pain. ). PAST HX: Tetanus status: up-to-date. ( depression). SOCIAL HX: Occasional alcohol use. Nonsmoker. Arrived by private vehicle and accompanied by friend. Historian: patient. --2130 Mattie Lomeli R.N. NURSING PROGRESS NOTES Progress Patient fit with crutches. Crutch training performed by [employer]; the patient demonstrated proper use. --2214 Abby Houser DISPOSITION / DISCHARGE Condition at departure: stable. Fall risk assessment completed. Low fall risk potential. No learning barriers present. Discharge instructions reviewed with the patient. Reviewed medication side effects, precautions, dosing and course (OTCs prn). Reviewed foot care and crutch walking instructions. Reviewed referral to an orthopedic surgeon for followup (in 2 weeks or PRN ). Patient verbalized understanding. Written instructions provided in Greek. The patient wasdischarged home and accompanied by sql tech. The patient left the Emergency Department ambulatory on crutches and via private vehicle. Fiction Writer driving. --2248 Haley Dinero R.N., E.M.T. Christine McKendrick R.N. Locked/Released at 11/22/2005 22:49 by Lilly Hunter R.N. documented in this encounter Plan of Treatment Not on file documented as of this encounter Visit Diagnoses Not on filedocumented in this encounter Care Teams Drafter Refrigeration Relationship Specialty Start Date End Date Bailey Swartz MD [address] [place] [phone] PCP - General 08/21/09 11/24/11 Irais Mancilla, PA-C [address] [place] [phone] PCP - General 02/04/09 08/20/09 documented as of this encounter
--- OUTSIDE RECORDS SUMMARY | 2024-10-25 15:50 | XMS_ITS | Encounter Summary ---
Author Organization [facility] Address [address] [place] [address] Care Team Providers Care Wood Chopper Name Role Phone Unavailable Primary Care Provider Unavailabl e Encounter Details Date Type Department Care Team (Late st Contact Info) Description 07/23/2004 23:17 EDT Hospital Encounter [facility] - Other [address] [place] [address] Phyllis Hernandez, OFFICE CLINICIAN [address] [place] [address] Social History Tobacco Use Types Packs/Day Years [...]
--- OUTSIDE RECORDS SUMMARY | 2024-10-25 15:50 | XMS_ITS | Encounter Summary ---
Author Organization [facility] Address [address] [place] [address] Care Team Providers Care Shoemaking Finisher Name Role Phone Unavailable Primary Care Provider Unavailabl e Encounter Details Date Type Department Care Team (Latest Contact Info) Description 11/11/2002 9:05 EST - 11/11/2002 11:59 EST Hospital Encounter [facility] Emergency Department - [facility] [address] [place], [place] [id number] Emergency, Default, MD Discharge Disposition: Home or [...]
--- OUTSIDE RECORDS SUMMARY | 2024-10-25 15:50 | XMS_ITS | Encounter Summary ---
Author Organization [facility] Address [address] [place] [address] Care Team Providers Care Aircraft Tool Maker Name Role Phone Unavailable Primary Care Provider Unavailabl e Encounter Details Date Type Department Care Team (Late st Contact Info) Description 08/12/2005 16:22 EDT Hospital Encounter [facility] - Other [address] [place] [address] Phyllis Hernandez, MACHINE COIL ASSEMBLER [address] [place] [address] Social History Tobacco Use Types Packs/Day Years [...] Procedure Name Priority Date/Time Associated Diagnosis Comments GROUP A STREP CULTURE Routine 08/12/2005 14:20 EDT MONO-TEST Routine 08/12/2005 14:20 EDT COMPLETE BLOOD COUNT AND DIFFERENTIAL Routine 08/12/2005 14:20 EDT COMPLETE BLOOD COUNT AND DIFFERENTIAL Routine 08/12/2005 14:20 EDT documented in this encounter Results * MONO-TEST (08/12/2005 14:20 EDT) Pathologist [facility] Dooly-Test Neg NEG [facility] 08/12/2005 14:2 0 EDT 08/12/2005 19:41 EDT Phyllis Hernandez APRN CHEMISTRY & BLOOD GAS ORDERAB LES Final Result Performing Organization Address [facility]/ZIP Co de Phone Number [facility] [address] [place] [address] * (ABNORMAL) HEMAGRAM AND DIFFERENTIAL (08/12/2005 14:20 EDT) Pathologist [facility] % Neutrophils 62.7 45.5 - 79.7 % [facility] % Lymphocytes 29.5 15.0 - 46.8 % [facility] % Monocytes 6.4 1.8 - 12.0 % [facility] % Eosinophils 1.1 0.6 - 6.9 % [facility] % Basophils 0.3 0.2 - 1.4 % [facility] ABS Neutrophils 7.09 2.20 - 8.85 K/cmm [facility] ABS Lymphs 3.34(H) 1.09 - 3.30 K/cmm [facility] ABS Monocytes 0.72 0.1 - 0.8 K/cmm [facility] ABS Eosinophils 0.13 0.03 - 0.61 K/cmm [facility] ABS Basophils 0.04 0.01 - 0.11 K/cmm [facility] Type of Diff: Automated [facility] 08/12/2005 14:2 0 EDT 08/12/2005 19:41 EDT Phyllis Hernandez APRN PACKAGES & DNA PROBE ORDERABL ES Final Result Performing Organization Address [facility]/ZIP Co de Phone Number [facility] [address] [place] [address] * (ABNORMAL) HEMAGRAM AND DIFFERENTIAL (08/12/2005 14:20 EDT) WBC 11.32 4.0 - 12.4 K/cmm [facility] RBC 4.46 3.86 - 5.04 M/cmm [facility] Hemoglobin 13.7 11.6 - 15.2 gm/dl [facility] HCT 40.3 34.9 - 44.4 % [facility] MCV 90 81 - 98 fl [facility] MCH 30.6 26.7 - 33.3 pg [facility] MCHC 33.9 32.1 - 35.9 gm/dl [facility] PLT 345(H) 141 - 320 K/cmm [facility] RDW-CV 12.7 11.7 - 14.6 % [facility] 08/12/2005 14:2 0 EDT 08/12/2005 19:41 EDT Phyllis Hernandez APRN PACKAGES & DNA PROBE ORDERABL ES Final Result Performing Organization Address City/[facility]/ZIP Co de Phone Number [facility] [address] [place] [address] * CULTURE FOR GROUP A BETA STREPTOCOCCUS (08/12/2005 14:20 EDT) Specimen Description Throat [facility] Result NO GROUP A BETA STREPTOCOCCI ISOLATED [facility] Report Status Final [id number] [facility] 08/12/2005 14:2 0 EDT 08/12/2005 17:51 EDT Phyllis Hernandez APRN MICROBIOLOGY - GENERAL ORDERA BLES Final Result Performing Organization Address City/[facility]/ZIP Co de Phone Number [facility] [address] [place] [address] documented in this encounter Visit Diagnoses Not on filedocumented in this encounter
--- OUTSIDE RECORDS SUMMARY | 2024-10-25 15:50 | XMS_ITS | Encounter Summary ---
Author Organization [facility] Address [address] [place] [address] Care Team Providers Care Milk Vendor Name Role Phone Unavailable Primary Care Provider Unavailabl e Encounter Details Date Type Department Care Team (Late st Contact Info) Description 10/26/2005 14:50 EST Hospital Encounter [address] [address] Char Fraser MD [address] [place] [address], [address] [place] [address] Social History Tobacco Use Types Packs/Day Years [...]
--- OUTSIDE RECORDS SUMMARY | 2024-10-25 15:50 | XMS_ITS | Encounter Summary ---
Author Organization [facility] Address [address] [place] [address] Care Team Providers Care Historian Dramatic Arts Name Role Phone Bailey Swartz MD Primary Care Provider [phone] Irais Mancilla PA-C Primary Care Provider Encounter Details Date Type Department Care Team (Late st Contact Info) Description 09/13/2005 Results Only [facility] - Map conversion [address] [place] [address] Julián Marcos, VP TREASURER [address] [place], [place] [address] Social History Tobacco Use Types Packs/Day Years [...] Priority Date/Time Associated Diagnosis Comments CYTOPATHOLOGY Routine 09/13/2005 0:00 EST documented in this encounter Results * CYTOPATHOLOGY (09/13/2005 0:00 EST) Pathology Report: CYTOPATHOLOGY REPORT Reports generated via electronic interface contain original data; however they are lacking the format of the original report. Caution should be taken when reading/interpreti ng unformatted reports. Name: ? JEROME ROSS ? Accession #: ? [id number] : ? 1985 (Age: 20) ??F ?Collect Date: ? 09/13/2005 Location: ? [facility] ? Receive Date: ? 09/14/2005 Provider: ?JULIÁN MARCOS CLAY MACHINE OPERATOR Copy to: ? Specimen/Source: ?ThinPrep Pap Test, Cervix/Endocervix, processed on [employer] ThinPrep Imaging System, with manual evaluation Last Menstrual Period: ? 09/05/05 Other: ? HPVA - HPV testing requested if ASC-US on the current ThinPrep Pap test. ? SPECIMEN ADEQUACY ? Satisfactory for Evaluation - transformation zone component present GENERAL CATEGORIZATION ? Epithelial Cell Abnormality INTERPRETATION ? Squamous Cell Abnormality - Low grade squamous intraepithelial lesion (LSIL). EDUCATIONAL NOTES/RECOMMENDATI ONS ? [facility] recommends following the 2001 Consensus Guidelines for the Management of Women with Cervical Cytological Abnormalities (GARCÍA,2002;287:212 0-9). Management algorithms have been distributed by [facility] and are available online at www.ASCCP.org. ? Document reviewed and electronically signed by: ? RAUL FALCON MD ? Report Date: ??09/20/2005 16:14 End of Report [facility] 09/13/2005 09/14/2005 us Julián Marcos APRN PATHOLOGY ORDERABLES Final Re sult [facility] [address] [place] [address] documented in this encounter Visit Diagnoses Not on filedocumented in this encounter Care Teams Historian Dramatic Arts Relationship Specialty Start Date End Date Bailey Swartz MD [address] [place] [phone] PCP - General 08/21/09 11/24/11 Irais Mancilla, PA-C [address] [place] [address] [place] [phone] PCP - General 02/04/09 08/20/09 documented as of this encounter
--- OUTSIDE RECORDS SUMMARY | 2024-10-25 15:50 | XMS_ITS | Encounter Summary ---
Author Organization [facility] Address [address] [place] [address] Care Team Providers Care Project Finance Analyst Name Role Phone Bailey Swartz MD Primary Care Provider Irais Mancilla PA-C Primary Care Provider [phone] Encounter Details Date Type Department Care Team (Late st Contact Info) Description 09/20/2003 Results Only [facility] - [place] conversion [address] [place] [address] Lisa Fragoso, TELEPHONE CLERK [address] [place] [address] Social History Tobacco Use Types [...] Procedure Name Priority Date/Time Associated Diagnosis Comments QUANT BETA HCG, Routine 09/20/2003 8:00 EST TRIGLYCERIDE Routine 09/20/2003 8:00 EST CHOLESTEROL Routine 09/20/2003 8:00 EST HEPATIC FUNCTION PANEL (ALB,ALK PHOS,ALT,AST,DBIL,TOT BHARAT,TOT PROT) Routine 09/20/2003 8:00 EST documented in this encounter Results * TRIGLYCERIDE (09/20/2003 8:00 EST) Triglycerides 69 35 - 160 mg/dl [facility] 09/20/2003 8:00 EST 09/20/2003 18:02 EST us Lisa Fragoso TELEPHONE CLERK CHEMISTRY & BLOOD GAS ORDERABLE S Final Result Performing Organization Address [facility] Phone Number [facility] [address] [place] [address] * LIVER FUNCTION TESTS (09/20/2003 8:00 EST) Albumin 4.5 3.0 - 5.5 g/dl [facility] Total Protein 8.0 6.0 - 8.5 g/dl [facility] Total Alkaline Phosphatase 64 38 - 126 U/L [facility] ALT 31 15 - 75 U/L [facility] AST 40 8 - 50 U/L [facility] Unconjugated Bilirubin 0.4 0.1 - 1.1 mg/dl [facility] Conjugated Bilirubin 0.0 0.0 - 0.3 mg/dl [facility] Bilirubin, Total 0.2 0.2 - 1.3 mg/dl [facility] 09/20/2003 8:00 EST 09/20/2003 18:02 EST us Lisa Fragoso TELEPHONE CLERK CHEMISTRY & BLOOD GAS ORDERABLE S Final Result Performing Organization Address [facility] de Phone Number [facility] [address] [place] [address] * HCG (09/20/2003 8:00 EST) HCG <4 mIU/ml [facility] Comment: <4 = Negative 4-10 = Borderline, recommend repeat. 09/20/2003 8:00 EST 09/20/2003 18:02 EST us Lisa Fragoso TELEPHONE CLERK CHEMISTRY & BLOOD GAS ORDERABLE S Final Result Performing Organization Address [facility]/ZIP Co de Phone Number [facility] [address] [place] [address] * CHOLESTEROL (09/20/2003 8:00 EST) Cholesterol 208 mg/dl [facility] Comment: Desirable:<200 Borderline:200-239 High Risk:>[id number] 09/20/2003 8:00 EST 09/20/2003 18:02 EST us Lisa Fragoso TELEPHONE CLERK CHEMISTRY & BLOOD GAS ORDERABLE S Final Result [facility] [address] [place] [address] documented in this encounter Visit Diagnoses Not on filedocumented in this encounter Care Teams Project Finance Analyst Relationship Specialty Start Date End Date Bailey Swartz MD [address] [place] [phone] PCP - General 08/21/09 11/24/11 Irais Mancilla PATrayC [address] [place] [phone] PCP - General 02/04/09 08/20/09 documented as of this encounter
[2024-10-25 15:51] LABS: TSH (W/Ref FT4) 2.73 uIU/mL (0.36-3.74)
== END 2024-10-25 15:22 | disposition home or self-care (01) ==
LOC: LBO 15:21
PROVIDERS: PCP Nurse Practitioner; Visit Provider Obstetrics & Gynecology Gynecology
DX: E06.9 Thyroiditis, unspecified (principal)
CPT/HCPCS: 36415; 84443

== ENCOUNTER 2024-10-30 06:44 | Outpatient (CLI) | payer BC, SELFPAY ==
--- NOTE | 2024-10-30 12:22 | W.CARDEVENT ---
Date of service: 10/30/24 Time of Service: 12:22 Cardiac Event Recorder Referring Provider:: Rosa Braun Indications:: Syncope, palpitations Cardiac Event Note: This is a cardiac event monitor. Patient was monitored for 29 days and 8 hours Rhythm throughout was sinus. Average heart rate was 66. Minimum was 38, maximum 126. There were no significant ventricular dysrhythmias There were rare atrial premature beats. There was no atrial fibrillation or SVT. There was no high-grade AV block or pauses greater than 3 seconds Reported symptoms generally correlated to sinus rhythm and sinus tachycardia. Rarely they did correlate to atrial premature beats
== END 2024-10-30 06:45 | disposition home or self-care (01) ==
LOC: CARDOPNVT 06:44
PROVIDERS: PCP Nurse Practitioner; Referring Provider Registered Nurse; Visit Provider Internal Medicine Cardiovascular Disease
DX: R55 Syncope and collapse (principal); R00.2 Palpitations

== ENCOUNTER 2024-11-27 02:04 | Outpatient (CLI) | payer BC, SELFPAY ==
--- NOTE | 2024-11-27 07:45 | DI.MAMMO_ITS ---
Exam(s) MAMMO SCREENING EXAM: MAMMO SCREENING CLINICAL HISTORY: screening,z12.39 TECHNIQUE: Bilateral full field digital CC and MLO mammographic images were obtained with 3D tomosyn thesis and utilizing computer aided detection (CAD). COMPARISON: Available for comparison. FINDINGS: Masses/Architectural Distortion: Since the prior examination the patient has undergone a right breast biopsy in the superior aspect of the right breast. No suspicious masses or areas of architectural d istortion are seen. Microcalcifications: No suspicious pleomorphic-type are seen. Skin Thickening/Nipple Retraction: None. IMPRESSION: 1. No significant interval change with no specific features of malignancy noted. 2. Unless there is more urgent need, screening mammography is recommended, as per [employer] guidelines. BI-RADS Category 2 - Benign Findings Breast Density - Category C - Heterogeneously dense Breast density category C or D implies that the patient has dense breast tissue. Dense breast tissue is very common and is not abnormal but dense breast tissue can make it harder to find cancer on a ma mmogram. Also, dense breast tissue may increase their breast cancer risk. This information about the result of the mammogram report was provided to the patient to raise their awareness. Use this report when you speak with the patient about their risks for breast cancer, which includes their family hist ory. At that time, you may recommend for more screening tests (Ultrasound or MRI) as they might be us eful based on their risk. A negative radiographic report should not delay biopsy if a dominant or clinically suspicious mass is present. Up to ten percent of cancers are not identified on mammography. A negative report may reinforce clinical impression. Adenosis and dense breasts may obscure an underlying neoplasm. False positive reports average 6 to 10%. Patient will receive a letter notifying them of these results.
== END 2024-11-27 02:24 ==
PROVIDERS: PCP Nurse Practitioner; Visit Provider Obstetrics & Gynecology Gynecology
DX: Z12.31 Encounter for screening mammogram for malignant neoplasm of breast (principal); R92.333 Mammographic heterogeneous density, bilateral breasts; D24.1 Benign neoplasm of right breast
CPT/HCPCS: 77063; 77067

== ENCOUNTER 2024-12-01 10:29 | Outpatient (REF) | payer BC, SELFPAY ==
--- OUTSIDE RECORDS SUMMARY | 2024-12-01 10:33 | XMS_ITS | Continuity of Care Document ---
Author Organization [facility] Address [address] [place] [address] Care Team Providers Care Nursing Department Chairperson Name Role Phone Rebekah Greco Primary Care Physician Encounter [id number] Date(s): 09/11/24 - 09/11/24 [facility] [address] [place] [phone] Discharge Disposition: Home Assessment and Plan Future Scheduled Tests Radiology* NM Myocardial SPECT Drug Stress Multi 09/11/24 Patient Care team information Care Team Personnel Name: Rebekah Greco WARM IN Position: No Access Member Role: Primary Care Physician Address: [facility] Internal [facility] [address] [place], [place] [address] Insurance Providers Guarantor name: Health Plan Information #: 1 [place] [employer] [place] Member Number: NA Policy Number: NA
--- OUTSIDE RECORDS SUMMARY | 2024-12-01 10:33 | XMS_ITS | Data Portability ---
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 proceed. [id number] NANCY RENNER, LUIS ARMANDO [address] [place] [address] 08/07/2024 17:51:43 08/07/2024 19:21:45 Thyroid function tests abnormal [id number] R94.6 39 year old female today presents [...] would have to be followed by PCP, BURGL[facility] ALARM OPERATOR, or lavern navarro endocrinol ogy, and patient verbalized understand ing. [id number] Marilyn Mcdaniels LPN [address] [place] [address] 12/01/2024 09:02:52 12/01/2024 09:55:10 Dysuria [id number] R30.0 Patient is having symptoms concerning for urinary tract infection with urgency, dysuria but no visible hematuria. Urinalysis here shows moderate leukocytes , negative nitrites, moderate nonhemolyz ed blood will be sent for urine microscopy and culture with results returning on Tuesday. Patient will expect hear from us then to go over results and see how she is doing. In meantime she will be started on cephalexin 500 mg twice a day for the next 7 days. Currently no findings to suggest pyelonephr itis. Denies change in vaginal discharge to suggest other etiologies . If urine culture returns negative we should explore other causes of symptoms and would recommend vaginal swab. Health Concerns Section Related Observation LastModified by Organization Detai ls LastModified Time None Recorded Concern Status LastModified by Organization Details LastModified Time None Recorded Advance Directives Directive None Recorded Payers Encounter Date Sequence Insurance Name Policy Number Policy Gale Covered Member ID Gale Member ID Guarantor Name 12/30/2023 1 [place] Martin Robledo [id number] Jerome Robledo 02/29/2024 1 [place] Martin Robledo [id number] Jerome Robledo 03/30/2024 1 [place] Martin Robledo [id number] Jerome Robledo 08/07/2024 1 [place] Martin Robledo [id number] Jerome Robledo 12/01/2024 1 [place] Martin Robledo [id number] Jerome Robledo Notes Date Note Type Note Provider Name and Address Organization Details Recorded Time 12/30/2023 text/html Jerome is a 38-year-old female [...] her legs. No history of blood clots. [address], [place], [address], [facility]. 12/31/2023 15:51:09 02/29/2024 text/html Jerome is [...] something under the knee. [address], [place], [address], [facility]. 02/29/2024 18:17:04 03/30/2024 text/html Jerome is a 38-year-old female who presents requesting referral for second opinion regarding ongoing right knee pain. Please see initial note from 02/29/2024. She was seen at the [facility] in [place] and they recommended injections and surgical procedure. [...] brace and hobbling around. [address], [place], [address], [facility]. 03/30/2024 16:34:50 08/07/2024 text/html Patient has [...] of 1.29 (WNL) and upon review of [facility] results was also performed:07/16/24, with level 0.42,06/20/2024 with level 0.61 No prior history of hyper or hypothyroidism. Patient has had previous pregnancies, with no history of hyperthyroid. She contacted PCP today, advised she cannot be seen for several weeks for acute care visit. 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 Patient has transfer of embryo performed 07/04/24, but had complications per BURGLAR ALARM OPERATOR note:Most recent transfer has resulted in inappropriate [...] week. LUIS ARMANDO FINCH [address], [place], [address], [facility]. 08/07/2024 20:14:11 12/01/2024 text/html Jerome is a 39-year-old female who presents with concerns for urinary tract infection. For the past couple days she has had urgency, frequency, dysuria but no visible hematuria. She felt a little bit warm the other night but did not feel that she developed a temperature. She has had no nausea vomiting diarrhea or other ill symptoms. She has been treating symptoms with Azo. Last UTI was over a year ago. No current concern for change in vaginal discharge. LMP approximately 2 weeks ago. [facility] [place], [place] - [facility]. 12/01/2024 10:16:14 OBGyn Episode No OBEpisode recorded.
--- OUTSIDE RECORDS SUMMARY | 2024-12-01 10:34 | XMS_ITS | Encounter Summary ---
Author Organization [facility] Address [facility] [place] [address] Care Team Providers Care Light Cleaner Name Role Phone Lucia Taylor APRN Primary Care Provider [phone] Reason for Visit * Auth/Cert Specialty Diagnoses / Procedures Referred By Isra gage Referred To Contact Diagnoses Unspecified abdominal pain Weight loss Chronic abdominal pain and laternating bowel habits, 30lb weight loss Procedures PRO COLONOSCOPY, DIAGNOSTIC PRO ANESTH, LWR INTESTINE, SCREENING COLONOSCOPY COLONOSCOPY, DIAGNOSTIC Referral ID Status Reason Start Date Expiration Date Visits Re quested Visits Authorized [id number] 1 1 Encounter Details Date Type Department Care Team (Latest Contact Info) Description 11/01/2017 12:55 PM EST - 11/01/2017 5:22 PM EST Hospital Encounter [place] [address] Alexandre Ribera MD [facility] [place] [address] Discharge Disposition: Home Social History Tobacco Use [...] to be checked. Tuesday-Tuesday Same Day Endo [phone] 7a-8p Otherwise contact [phone] and ask to speak to the content assistant workers compensation paralegal Follow up care is a young part [...] Ribera MD - 11/01/2017 2:52 PM EST [facility] Operative Note Patient Name: Jerome Robledo : [id number] MR#: [id number] Case Date: 11/01/2017 Surgeon: Surgeon(s) and Role: * Alexandre Ribera MD - Primary Preoperative diagnosis: Chronic abdominal pain and alternating bowel habits, 30lb weight loss (CONSULT) Postoperative diagnosis: Colon polyp, random rectal biopsies taken Procedure(s) (LRB): COLONOSCOPY, DIAGNOSTIC (N/A) Anesthesia: MAC Attestation: Case Date: 11/01/2017 ALEXANDRE RIBERA MD 11/01/2017 Full procedure note is documented under the Procedure section of [facility]. documented in this encounter Plan of Treatment [...] PM EST 11/01/2017 3:38 PM EST Narrative [facility] - 11/01/2017 3:38 PM EST Specimen requisition ordered. ??Separate Pathology report to follow Resulting Agency Comment Spec In Lab Alexandre Canales MD PATHOLOGY/CYTOLO GY ORDERABLES [facility] [place] [address] * Specimen to Pathology (11/01/2017 2:56 PM EST) AP Specimen 11/01/2017 2:56 PM EST 11/01/2017 3:38 PM EST Narrative [facility] - 11/01/2017 3:38 PM EST Specimen requisition ordered. ??Separate Pathology report to follow Resulting Agency Comment Spec In Lab Alexandre Canales MD PATHOLOGY/CYTOLO GY ORDERABLES [facility] [place] [address] * Surgical Pathology Report (11/01/2017 2:55 PM EST) Final Diagnosis [id number] ? Location: 4T; EA11; A The signing pathologist has (i) examined the relevant preparation(s) for the specimen(s) and (ii) rendered or confirmed the diagnosis(es). . ?Surgical Pathology DIAGNOSIS A - Sigmoid colon, 25 cm, ?? polypectomy: Tubular adenoma. B - Rectum, colon, random, ?? biopsy: Rectal mucosa within normal limits. Congo red stain is negative for amyloid. CR-PX Electronically signed by: ??Makayla LUND, Gagan Siegel Verified: ??11/08/2017 ?Pathologist Performed at: ??-[facility] Dept. of Pathology, [place], [place] CLINICAL INFORMATION Specimen Submitted: A - [...] sing: (T2) ??gian 11/08/2017 6:32 AM EST [facility] GI Biopsy 11/01/2017 2:55 PM EST 11/01/2017 2:55 PM EST GI Biopsy 11/01/2017 2:55 PM EST 11/01/2017 2:55 PM EST Alexandre Canales MD PATHOLOGY/CYTOLO GY ORDERABLES [facility] [place] [address] * COLONOSCOPY (11/01/2017 2:11 PM EST) COLONOSCOPY [facility] Endoscopy ___ Procedure Date: 11/01/2017 2:11 PM ? Patient Name: Jerome Rolbedo ? Date of : 1985 ? Age: 32 ? Order #: [id number] ? Instrument Name: [id number] ? ___ Procedure: ? Colonoscopy Indications: ? Change in bowel habits, Weight loss Providers: ? Alexandre Ribera MD, Kristi ? Don, RN, Dinh Alfonso, Assessment Nurse Practitioner Referring MD: ?Tayler Gutiérrez MD Medicines: ? [...] infusion 100 mL/hr, Intravenous, CONTINUOUS, Starting on e 11/01/17 at 1345, Until Tue11/01/17 at 1550, Endoscopy [...] RN) documented in this encounter Care Teams Light Cleaner Relationship Specialty Start Date End Date Lucia Taylor, SHERRY PCP - General Family Medicine 10/14/17 05/03/24 documented as of this encounter
--- OUTSIDE RECORDS SUMMARY | 2024-12-01 10:34 | XMS_ITS | Encounter Summary ---
Author Organization [facility] [place] [address] Care Team Providers Care Clinical Cytogeneticist Scientist Name Role Phone Rebekah Greco APRN Primary Care Provider [phone] Encounter Details Date Type Department Care Team [...] on filedocumented in this encounter Care Teams Clinical Cytogeneticist Scientist Relationship Specialty Start Date End Date Rebekah Greco APRN [address] [place] [address] PCP - General Internal Medicine 05/04/24 documented as of this encounter
--- OUTSIDE RECORDS SUMMARY | 2024-12-01 10:34 | XMS_ITS | Encounter Summary ---
Author Organization [facility] Address [facility] [place] [address] Care Team Providers Care Jewel Stringer Name Role Phone Lucia Taylor APRN Primary Care Provider [phone] Reason for Visit * Auth/Cert Specialty Diagnoses / Procedures Referred By Isra t Referred To Contact Diagnoses Unspecified abdominal pain Weight loss Chronic abdominal pain and laternating bowel habits, 30lb weight loss Procedures PRO COLONOSCOPY, DIAGNOSTIC PRO ANESTH, LWR INTESTINE, SCREENING COLONOSCOPY COLONOSCOPY, DIAGNOSTIC Referral ID Status Reason Start Date Expiration Date Visits Re quested Visits Authorized [id number] 1 1 Encounter Details Date Type Department Care Team (Late st Contact Info) Description 11/01/2017 1:45 PM EST - 11/01/2017 2:30 PM EST [place] [address] Sho Ribera MD [facility] [place] [address] COLONOSCOPY, POLYPECTOMY, REMOVAL LESION BY SNARE (WRVU [...] to be checked. Tuesday-Tuesday Same Day Endo [phone] 7a-8p Otherwise contact [phone] and ask to speak to the park guide distribution system operator Follow up care is a young part of your treatment and safety. Be sure to make and go to all appointments, and call your doctor if you are having problems. Discharge instructions reviewed with patient who expresses understanding * Patient Instructions* Sho Ribera MD - 11/01/2017 2:54 PM EST [...] documented in this encounter H&P Notes * Sho Ribera MD - 11/01/2017 2:16 PM EST [...] encounter Miscellaneous Notes * Op Note - Sho Ribera MD - 11/01/2017 2:52 PM EST [facility] Operative Note Patient Name: Jerome Robledo : [id number] MR#: [id number] Case Date: 11/01/2017 Surgeon: Surgeon(s) and Role: * Sho Ribera MD - Primary Preoperative diagnosis: Chronic abdominal pain and alternating bowel habits, 30lb weight loss (CONSULT) Postoperative diagnosis: Colon polyp, random rectal biopsies taken Procedure(s) (LRB): COLONOSCOPY, DIAGNOSTIC (N/A) Anesthesia: MAC Attestation: Case Date: 11/01/2017 SHO RIBERA MD 11/01/2017 Full procedure note is documented under the Procedure section of [facility]. documented in this encounter Plan of [...] PM EST 11/01/2017 3:38 PM EST Narrative [facility] - 11/01/2017 3:38 PM EST Specimen requisition ordered. ??Separate Pathology report to follow Resulting Agency Comment Spec In Lab Sho Canales MD PATHOLOGY/CYTOLO GY ORDERABLES [facility] [place] [address] * Specimen to Pathology (11/01/2017 2:56 PM EST) AP Specimen 11/01/2017 2:56 PM EST 11/01/2017 3:38 PM EST Narrative [facility] - 11/01/2017 3:38 PM EST Specimen requisition ordered. ??Separate Pathology report to follow Resulting Agency Comment Spec In Lab Sho Canales MD PATHOLOGY/CYTOLO GY ORDERABLES [facility] [place] [address] * Surgical Pathology Report (11/01/2017 2:55 PM EST) Final Diagnosis [id number] ? Location: 4T; EA11; A The signing [...] Benavides MD Verified: ??11/08/2017 ?Pathologist Performed at: ??-[facility] Dept. of Pathology, [place], [place] CLINICAL INFORMATION Specimen Submitted: A - [...] sing: (T2) ??gian 11/08/2017 6:32 AM EST [facility] GI Biopsy 11/01/2017 2:55 PM EST 11/01/2017 2:55 PM EST GI Biopsy 11/01/2017 2:55 PM EST 11/01/2017 2:55 PM EST Sho Canales MD PATHOLOGY/CYTOLO GY ORDERABLES Performing Organization Address [facility]/ZIP Co de Phone Number [facility] [place] [address] * COLONOSCOPY (11/01/2017 2:11 PM EST) COLONOSCOPY [facility] Endoscopy ___ Procedure Date: 11/01/2017 2:11 PM ? Patient Name: Jerome Robledo ? Date of : 1985 ? Age: 32 ? Order #: [id number] ? Instrument Name: [id number] ? ___ Procedure: ? Colonoscopy Indications: ? Change in bowel habits, Weight loss Providers: ? Sho Ribera MD, Kristi ? Don, RN, Dinh Alfonso, Red Leader Referring MD: ?Tayler Gutiérrez MD Medicines: ? [...] I personally performed the entire procedure. ? Sho Ribera MD 11/01/2017 3:21:01 PM This report [...] RN) documented in this encounter Care Teams Jewel Stringer Relationship Specialty Start Date End Date Lucia Taylor APRN PCP - General Family Medicine 10/14/17 05/03/24 documented as of this encounter
--- OUTSIDE RECORDS SUMMARY | 2024-12-01 10:34 | XMS_ITS | Encounter Summary ---
Author Organization [facility] [place] [address] Care Team Providers Care Construction Skills Teacher Name Role Phone Rebekah Greco APRN Primary Care Provider [phone] Encounter Details Date Type Department Care Team (Latest Contact Info) Description 10/26/2024 Travel Social History Tobacco Use Types Packs/Day [...] on filedocumented in this encounter Care Teams Construction Skills Teacher Relationship Specialty Start Date End Date Rebekah Greco APRN [address] [place] [address] PCP - General Internal Medicine 05/04/24 documented as of this encounter
--- OUTSIDE RECORDS SUMMARY | 2024-12-01 10:34 | XMS_ITS | Encounter Summary ---
Author Organization [facility] Address [facility] [place] [address] Care Team Providers Care Enterprise Cloud Architect Name Role Phone Tayler Gutiérrez MD Primary Care Provider + Reason for Referral * Diagnostic Test (Routine) - Closed Specialty Diagnoses / Procedures Referred By Contac t Referred To Contact Radiology Diagnoses Chronic abdominal pain Procedures NM Gastric Emptying Scan Igor Denney MD [facility] [place] [address] [place] [address] Referral ID Status Reason Start Date Expiration Date V isits Requested Visits Authorized [id number] Closed Specialty Service Requested 10/03/2017 10/03/2018 5 5 Reason for Visit * Diagnostic Test (Routine) - Closed Specialty Diagnoses / Procedures Referred By Contac t Referred To Contact Radiology Diagnoses Chronic abdominal pain Procedures NM Gastric Emptying Scan Igor Denney MD [facility] [place] [address] [place] [address] Referral ID Status Reason Start Date Expiration Date V isits Requested Visits Authorized [id number] Closed Specialty Service Requested 10/03/2017 10/03/2018 5 5 Encounter Details Date Type Department Care Team (Latest Contact Info) Description 10/12/2017 9:38 AM EST Hospital Encounter [place] [address] Lisa Sage MD [facility] [place] [address] Chronic abdominal pain Discharge Disposition: Home Social [...] at 10/12/2017 2:02 PM Lisa Sage MD [facility] [place] ORDERABLES documented in this encounter Visit [...] mCi documented in this encounter Care Teams Enterprise Cloud Architect Relationship Specialty Start Date End Date Tayler Gutiérrez MD [address] [place] [address] PCP - General 08/30/14 10/13/17 documented as of this encounter
--- OUTSIDE RECORDS SUMMARY | 2024-12-01 10:34 | XMS_ITS | Encounter Summary ---
Author Organization [facility] Address [facility] [place] [address] Care Team Providers Care Trout Farmer Name Role Phone Tayler Gutiérrez MD Primary Care Provider + Encounter Details Date Type Department Care Team (Latest Contact Info) Description 07/11/2017 - 07/11/2017 11:59 PM EDT Hospital Encounter Radiology Library at [facility] [place] [address] Alexandre Escalante MD [facility] [place] [address] Pain Discharge Disposition: Home Social History Tobacco [...] GI Study (07/11/2017 12:00 AM EDT) Narrative PETER - 10/25/2017 9:15 PM EST This exam is for storage only and is auto-finalizing. Alexandre Canales MD IMG FILM LIBRARY ORDERABLES Performing Organization Address City/State/[facility] Co de Phone Number [place], [place] documented in this encounter Visit Diagnoses Diagnosis Pain Generalized pain documented in this encounter Care Teams Trout Farmer Relationship Specialty Start Date End Date Tayler Gutiérrez MD [address] [place] [address] PCP - General 08/30/14 10/13/17 documented as of this encounter
--- OUTSIDE RECORDS SUMMARY | 2024-12-01 10:34 | XMS_ITS | Encounter Summary ---
Author Organization [facility] Address [facility] [place] [address] Care Team Providers Care Tap Builder Name Role Phone Tayler Gutiérrez MD Primary Care Provider + Reason for Referral * Diagnostic Test (Routine) - Closed Specialty Diagnoses / Procedures Referred By Contac t Referred To Contact Radiology Diagnoses Chronic abdominal pain Procedures NM Gastric Emptying Scan Igor Denney MD [facility] DR GASTROENTEROLOGY [place] [address] [facility] [place] [address] Referral ID Status Reason Start Date Expiration Date V isits Requested Visits Authorized [id number] Closed Specialty Service Requested 10/03/2017 10/03/2018 5 5 * Diagnostic Test (Routine) - Closed Specialty Diagnoses / Procedures Referred By Contac t Referred To Contact Radiology Diagnoses Chronic abdominal pain Procedures MRI Brain wwo Contrast (Generic) Igor Denney MD [facility] DR GASTROENTEROLOGY [place] [address] [place] [address] Referral ID Status Reason Start Date Expiration Date V isits Requested Visits Authorized [id number] Closed Specialty Service Requested 10/06/2017 12/04/2017 1 1 Reason for Visit * Reason Comments GI Problem * Consultation (Urgent) - Specialty Diagnoses / Procedures Referred By Isra t Referred To Contact Gastroenterology Diagnoses Pt w h/o gastroduodenal mass, 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 Pt has not had any postsurgical fup; needs ongoing til fup. Procedures Consult, evaluate, treat Lucia Taylor, SENIOR JAVA J2EE DEVELOPER [address] [facility] [address] [place] [address] [facility] [address] [place] [address] Referral ID Status Reason Start Date Expiration Date V isits Requested Visits Authorized [id number] Evaluate and Treat 09/14/2017 09/14/2018 1 1 Encounter Details Date Type Department Care Team (Late st Contact Info) Description 10/03/2017 1:00 PM EST Office [place] [address] Igor Denney MD [facility] DR GASTROENTEROLOGY [place] [address] Chronic abdominal pain Social History [...] Denney R - 10/03/2017 1:00 PM EST [facility] Division of Gastroenterology and Hepatology Outpatient Consultation [...] loss. She underwent an extensive evaluation at [facility] that included an abdominal ultrasound and [...] reactive. The specimen was sent to the [facility] for further evaluation for amyloid. Mass spectrometry was performed that supported the diagnosis of amyloidosis; however, subtyping could not be performed due to aninadequate specimen. The patient sought a second opinion at [facility] and was seen by Dr. Tijerina and [...] her chronic symptoms she was admitted to [facility] on 07/08/2017 and taken to the OR [...] area and thus plans to follow with [facility]. Following her surgery she has had essentially [...] analysis. A tissue block was submitted to [facility]; a repeat congo red was performed which was also positive.?The liquid chromatography tandem mass spectrometry (LC MS/MS) was performed on the peptide extracted from the [place] red positive dissected areas. LC MS/MS detected a peptide profile that includes proteins deposited with amyloid of all types.?This finding supports a diagnosis of amyloidosis. [facility] could not determine the specific [...] Dr. Marta Denney MD [place] [address] P: [phone] F: [phone] CC Tayler Gutiérrez MD [address] [place] [address] * Lisa Sage MD - 10/03/2017 1:00 [...] Sage MD Section of Gastroenterology & Hepatology [address] [place] [id number] documented in this encounter Plan of Treatment [...] brain MRI. 10:08 AM Lisa Sage MD IM MRI ORDERABLES * NM Gastric Emptying Scan [...] at 10/12/2017 2:02 PM Lisa Sage MD IM NM ORDERABLES * (ABNORMAL) Differential, Automated (10/03/2017 3:10 PM EST) Neutrophil % 54.4 % [facility] Neutrophil Absolute 5.16 1.70 - 6.10 x10(3)/mc L [facility] Lymph % 37.4 % [facility] Lymphocytes Abs 3.6(H) 0.9 - 3.2 x10(3)/mc L [facility] Monocyte % 6.1 % [facility] Monocyte Abs 0.6 0.3 - 0.9 x10(3)/mc L [facility] Eos % 1.4 % [facility] Eosinophils Abs 0.1 0.0 - 0.4 x10(3)/mc L [facility] Basophil % 0.5 % [facility] Baso Absolute 0.0 0.0 - 0.1 x10(3)/mc L [facility] Immature Gran % 0.20 % [facility] Comment: Immature granulocytes(IG's)percentage and absolute count will include metamyelocytes, myelocytes, and promyelocytes. Blood smears from CBCs yielding IG's will be scanned manually for concordance. If this scan disagrees with the automated IG or if promyelocytes are noted, a manual differential will be performed. Immature Gran Absolute 0.02 0.00 - 0.04 x10(3)/mc L [facility] Blood specimen (specimen) 10/03/2017 3:10 PM EST 10/03/2017 3:15 PM EST Narrative Resulting Agency Comment Spec In Lab Lisa Sage MD HEMATOLOGY ORDERABLE S Performing Organization Address City/[facility]/ZIP Co de Phone Number [facility] [place] [address] * Hemogram (10/03/2017 3:10 PM EST) White Blood Cell 9.5 4.0 - 9.5 x10(3)/[facility] Red Blood Cell 4.26 4.00 - 5.21 x10(6)/[facility] Hemoglobin 13.0 11.7 - 15.5 gm/dL [facility] Hematocrit 39.7 35.7 - 45.8 % [facility] Mean Cell Volume 93.2 82.6 - 94.4 [facility] Mean Cell Hemoglobin 30.5 27.1 - 32.0 pg [facility] Mean Cell Hemoglobin Concentration 32.7 31.7 - 35.0 gm/dL [facility] Platelet 245 145 - 357 x10(3)/[facility] RDW Standard Deviation 42.4 37.0 - 46.0 [facility] RDW coefficient of variation 12.5 11.5 - 14.1 % [facility] Mean Platelet Volume 9.2 7.6 - 12.9 [facility] NRBC% auto 0.0 % [facility] NRBC Absolute 0.000 0.000 - 0.000 x10(3)/[facility] Blood specimen (specimen) 10/03/2017 3:10 PM EST 10/03/2017 3:15 PM EST Narrative Resulting Agency Comment Spec In Lab Lisa Sage MD HEMATOLOGY ORDERABLE S [facility] [place] [place] [address] * Celiac HLA Typing (10/03/2017 3:10 PM [...] medium resolution molecular values. ?Performing Laboratory CLIA# [id number] ?Test Performed by: ?[facility] ?[address] [place] [address] [facility] Blood specimen (specimen) 10/03/2017 3:10 PM EST 10/03/2017 3:27 PM EST Narrative Resulting Agency Comment Spec In Lab Lisa Sage MD LAB SEND OUT ORDERAB LES Performing Organization Address [facility] Co de Phone Number [facility] [place] [address] * IgA (10/03/2017 3:10 PM EST) IgA 89 70 - 400 mg/dL [facility] Blood specimen (specimen) 10/03/2017 3:10 PM EST 10/03/2017 3:16 PM EST Narrative Resulting Agency Comment Spec In Lab Lisa Sage MD CHEMISTRY ORDERABLES Performing Organization Address [facility] Phone Number [facility] [place] [address] * Tissue transglutaminase, IgA (10/03/2017 3:10 PM EST) TTG IgA Ab 0.2 0.1 - 10.0 u/ml [facility] Comment: Negative = <7 U/mL Equivocal = 7-10 U/mL Positive = >10 U/mL Blood specimen (specimen) 10/03/2017 3:10 PM EST 10/04/2017 7:34 AM EST Narrative Resulting Agency Comment Spec In Lab Lisa Sage MD IMMUNOLOGY ORDERABLE S Performing Organization Address [facility] Co de Phone Number [facility] [place] [address] * Calcium (10/03/2017 3:10 PM EST) Calcium 9.4 8.5 - 10.5 mg/dL [facility] Blood specimen (specimen) 10/03/2017 3:10 PM EST 10/03/2017 3:15 PM EST Narrative Resulting Agency Comment Spec In Lab Lisa Sage MD CHEMISTRY ORDERABLES [facility] [place] [address] * (ABNORMAL) CMP w/fasting Glucose (10/03/2017 3:10 PM EST) Glucose Fasting 91 65 - 99 mg/dL [facility] Comment: ?Fasting* Glucose Interpretive Criteria Normal [...] of Diabetes Mellitus, Position Statement from the [place] [employer]. ??Diabetes Care, Volume 33, Supplement 1, Oct 2009 Blood Urea Nitrogen 8 8 - 18 mg/dL [facility] Creatinine 0.75 0.70 - 1.20 mg/dL [facility] Sodium 141 135 - 145 mmol/L [facility] Potassium 3.8 3.5 - 5.0 mmol/L [facility] Comment: Please note: ??Patients with WBC >100,000 may have falsely elevated Potassium levels. ??For accurate Potassium quantification in these patients send serum separator tube (gold top) for subsequent determinations. ??Contact the Clinical Chemistry Laboratory if there are any questions. Chloride 102 98 - 107 mmol/L [facility] Carbon Dioxide 21(L) 22 - 31 mmol/L [facility] Anion Gap 18(H) 5 - 15 mmol/L [facility] Calcium 9.4 8.5 - 10.5 mg/dL [facility] Protein, Total 7.3 6.1 - 8.0 gm/dL [facility] Albumin 4.2 3.2 - 5.2 gm/dL [facility] Aspartate Aminotransferase 21 0 - 30 unit/L [facility] Alanine Aminotransferase 13 0 - 30 unit/L [facility] Alkaline Phosphatase 30(L) 40 - 104 unit/L [facility] Bilirubin, Total 0.4 0.2 - 1.3 mg/dL [facility] Est Glomerular Filtration Rate >60 >=60 [facility] Comment: The reported eGFR should be multiplied by 1.2 for patients. The MDRD is not an appropriate measure of renal function for patients with body mass extremes or in patients with acute kidney failure. http://SurDoc/DHnkdep http://SurDoc/DHMCnkf Blood specimen (specimen) 10/03/2017 3:10 PM EST 10/03/2017 3:15 PM EST Narrative Resulting Agency Comment Spec In Lab Lisa Sage MD CHEMISTRY ORDERABLES [facility] [place] [address] * Beta HCG, quantitative (10/03/2017 3:10 PM EST) Beta Human Chorionic Gonadotropin, Quantitative <1 mlU/ML [facility] Comment: REFERENCE RANGES NON- FEMALE: ??Less [...] - 56,451 ?17 weeks ? 8,175 - 83,868 ?18 weeks ? 8,096 - 58,411 Blood specimen (specimen) 10/03/2017 3:10 PM EST 10/03/2017 3:15 PM EST Narrative Resulting Agency Comment Spec In Lab Lisa Sage MD CHEMISTRY ORDERABLES Performing Organization Address City/State/[facility] Co de Phone Number [facility] [place] [address] documented in this encounter Visit Diagnoses Diagnosis Chronic abdominal pain Abdominal pain, unspecified site Chronic abdominal pain Abdominal pain, unspecified site Chronic abdominal pain Abdominal pain, unspecified site documented in this encounter Care Teams Tap Builder Relationship Specialty Start Date End Date Tayler Gutiérrez MD [address] [place] [phone] PCP - General 08/30/14 10/13/17 documented as of this encounter
--- OUTSIDE RECORDS SUMMARY | 2024-12-01 10:34 | XMS_ITS | Encounter Summary ---
Author Organization [facility] [place] [address] Care Team Providers Care Real Estate Office Manager Name Role Phone Lucia Taylor SHERRY Primary Care Provider [phone] Encounter Details Date Type Department Care Team (Late st Contact Info) Description 12/20/2017 Telephone [place] [phone] Cecelia Quinones RN Social History Tobacco Use [...] on filedocumented in this encounter Care Teams Real Estate Office Manager Relationship Specialty Start Date End Date Lucia Taylor APRN PCP - General Family Medicine 10/14/17 05/03/24 documented as of this encounter
--- OUTSIDE RECORDS SUMMARY | 2024-12-01 10:34 | XMS_ITS | Clinical Summary ---
Author Organization [facility] Address [facility] [place] [address] Care Team Providers Care Manufacturing Worker Name Role Phone Rebekah Greco SHERRY Primary Care Provider [phone] Allergies Active Allergy Reactions Criticality Noted Date [...] believes that she can tolerate dilaudid. Medications No known medications Active Problems No known active problems Encounters Date Type Department Care Team Description 10/26/2024 3:45 PM EST Office Visit Dermatology at [address] [address] Duglas Raymond MD Nevus of face 10/26/2024 Travel from Last 3 Months Social History Tobacco Use Types Packs/Day Years [...] 06/27/2024 3:30 PM EDT Plan of Treatment Health Maintenance Due [...] Breast Cancer screening 2024 Covid-19 Vaccine ( season) 2024 Influenza (Flu) vaccine (1 o f 1 - Influenza standard series) 06/17/2024 Sigmoidoscopy (10 year) with FIT yearly 11/01/2027 11/01/2017, 11/01/2017, 11/01/2017 Procedures Procedure Name Priority Date/Time Associated Diagnosis Comments COLONOSCOPY Routine 11/01/2017 2:11 PM EST from Last 3 Months or Most Recently Relevant to Health Maintenance Results * COLONOSCOPY (11/01/2017 2:11 PM EST) COLONOSCOPY [facility] Endoscopy ___ Procedure Date: 11/01/2017 2:11 PM ? Patient Name: Jerome Robledo ? Date of : 1985 ? Age: 32 ? Order #: [id number] ? Instrument Name: [id number] ? ___ Procedure: ? Colonoscopy Indications: ? Change in bowel habits, Weight loss Providers: ? Alexandre Escalante MD, Kristi ? Don, RN, Dinh Alfonso, Operations Support Analyst Referring : ?Tayler Gutiérrez MD Medicines: ? Sedation Required [...] Recently Relevant to Health Maintenance Care Teams Manufacturing Worker Relationship Specialty Start Date End Date Rebekah Greco, GUEST ATTENDANT [address] [place] [address] PCP - General Internal Medicine 05/04/24
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
--- OUTSIDE RECORDS SUMMARY | 2024-12-01 10:34 | XMS_ITS | Encounter Summary ---
Author Organization [facility] Address [facility] [place] [address] Care Team Providers Care Lamina Searcher Name Role Phone Tayler Gutiérrez MD Primary Care Provider + Reason for Visit * Diagnostic Test (Routine) - Closed Specialty Diagnoses / Procedures Referred By Isra gage Referred To Contact Radiology Diagnoses Chronic abdominal pain Procedures NM Gastric Emptying Scan Igor Denney MD [facility] [place] [address] [place] [address] Referral ID Status Reason Start Date Expiration Date V isits Requested Visits Authorized [id number] Closed Specialty Service Requested 10/03/2017 10/03/2018 5 5 Encounter Details Date Type Department Care Team (Latest Contact Info) Description 10/12/2017 9:40 AM EST Hospital Encounter [place] [address] Lisa Sage MD [facility] [place] [address] Discharge Disposition: Home Social History Tobacco Use Types Packs/Day Years Used Date Smoking Tobacco: Never Smokeless Tobacco: Never Sex and Gender Information Value Date Recorded Sex Assigned at Not on file Gender Identity Not on file Sexual Orientation Not on file documented as of this encounter Medications at Time of Discharge Medication Sig Dispensed Refills Start Date End Date JACI 35, 28, 1-35 mg-mcg Tablet TAKE ONE [...] on filedocumented in this encounter Care Teams Lamina Searcher Relationship Specialty Start Date End Date Tayler Gutiérrez MD [address] [place] [address] PCP - General 08/30/14 10/13/17 documented as of this encounter
--- OUTSIDE RECORDS SUMMARY | 2024-12-01 10:34 | XMS_ITS | Encounter Summary ---
Author Organization [facility] Address [facility] [place] [address] Care Team Providers Care Architectural Technician Name Role Phone Lucia Taylor APRN Primary Care Provider [phone] Encounter Details Date Type Department Care Team (Late st Contact Info) Description 11/03/2017 Telephone [place] [address] Igor Denney MD [facility] DR [place]STROENTER[place] [address] Social History Tobacco Use Types Packs/Day Years [...] call, will get capsule video sent from [facility] [place] documented in this encounter Plan of Treatment Not on file documented as of this encounter Visit Diagnoses Not on filedocumented in this encounter Care Teams Architectural Technician Relationship Specialty Start Date End Date Lucia Taylor APRN PCP - General Family Medicine 10/14/17 05/03/24 documented as of this encounter
--- OUTSIDE RECORDS SUMMARY | 2024-12-01 10:34 | XMS_ITS | Encounter Summary ---
Author Organization [facility] [place] [address] Care Team Providers Care Shortage Worker Name Role Phone Lucia Taylor APRN Primary Care Provider [phone] Reason for Visit * Auth/Cert Specialty Diagnoses / Procedures Referred By Isra t Referred To Contact Diagnoses Unspecified abdominal pain Weight loss Chronic abdominal pain and laternating bowel habits, 30lb weight loss Procedures PRO COLONOSCOPY, DIAGNOSTIC PRO ANESTH, LWR INTESTINE, SCREENING COLONOSCOPY COLONOSCOPY, DIAGNOSTIC Referral ID Status Reason Start Date Expiration Date Visits Re quested Visits Authorized [id number] 1 1 Encounter Details Date Type Department Care Team (Late st Contact Info) Description 11/01/2017 2:19 PM EST Anesthesia [place] [address] Brock Ly MD Anesthesia Record Procedure Summary [...] basilic vein (medial side of arm), right; voaf-nfz-olunue catheter system; 20 gauge; distraction, intradermal injection, [...] Ly MD - 11/01/2017 3:39 PM EST [facility] Department of Anesthesiology Post-procedure Note Patient: Jerome Robledo Procedure Summary Date Anesthesia Start Anesthesia Stop Room / Location 11/01/17 1419 1502 [facility] ENDO 5 / [facility] ENDOSCOPY Procedure Diagnosis Surgeon Responsible Provider COLONOSCOPY, POLYPECTOMY, REMOVAL LESION BY SNARE (WRVU 4.67) (N/A ); COLONOSCOPY FLEXIBLE, WITH BX(WRVU 3.66) (N/A ) Chronic abdominal pain (Chronic abdominal pain and laternating bowel habits, 30lb weight loss; (CONSULT)) Alexandre Escalante MD Hoyt, Matthew J, MD All Anesthesia Providers: Anesthesiologist: Brock Ly MD SYSTEMS PROGRAM MANAGER: Duglas Winslow CRNA Most Recent Vitals: 11/01/17 1501 BP: Pulse: Resp: 16 SpO2: Pain 0 (11/01/17 1501) Patient Location: PACU/[facility] Level of Consciousness: Awake and Alert Pain [...] r documented in this encounter Care Teams Shortage Worker Relationship Specialty Start Date End Date Lucia Taylor APRN PCP - General Family Medicine 10/14/17 05/03/24 documented as of this encounter
--- OUTSIDE RECORDS SUMMARY | 2024-12-01 10:34 | XMS_ITS | Clinical Summary ---
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 Surgical History Surgery Date Site/Laterality Comments KNEE [...] - 19+ 3-dose series) 2003 COVID-19 Vaccine ( season) 2024 Hepatitis C Screen Completed 08/18/2021, 06/23/2021 Procedures Procedure Name Priority Date/Time Associated Diagnosis Comments HEPATITIS C AB W REFLEX TO HCV RNA BY PCR Routine 08/18/2021 7:20 EDT from Last 3 Months or Most Recently Relevant to Health Maintenance Results * HEPATITIS C AB W REFLEX TO HCV RNA BY PCR (08/18/2021 7:20 EDT) Hep C Antibody Negative Negative 08/19/2021 12:18 EDT [facility] Blood VENOUS BLOOD / Unknown 08/18/2021 7:20 EDT 08/18/2021 16:26 EDT us Provider Outr Resulting Lab CHEMISTRY & BLOOD GA S ORDERABLES Final Result [facility] [address] [place] [address] from Last 3 Months or Most Recently Relevant to Health Maintenance Insurance [facility] Care Teams Highway Engineer Relationship Specialty Start Date End Date Rebekah Greco NP PCP - General 12/19/17
--- OUTSIDE RECORDS SUMMARY | 2024-12-01 10:34 | XMS_ITS | Encounter Summary ---
Author Organization [facility] Address [facility] [place] [address] Care Team Providers Care Global Mobility Specialist Name Role Phone Lucia Taylor APRN Primary Care Provider [phone] Reason for Visit * Auth/Cert Specialty Diagnoses / Procedures Referred By Isra gage Referred To Contact Diagnoses jejunual intusception Procedures PRG GI TRACT IMAGING, INTRALUMINAL, ESOPHAGUS THROUGH ILEUM, W INTERP & REPORT VIDEO CAPSULE ENDOSCOPY Referral ID Status Reason Start Date Expiration Date Visits Re quested Visits Authorized [id number] 1 1 Encounter Details Date Type Department Care Team (Late st Contact Info) Description 02/02/2018 7:30 AM EDT - 02/02/2018 8:00 AM EDT Surgery [place] [address] Mihai Mary MD [facility] [place] [address] VIDEO CAPSULE ENDOSCOPY (WRVU 2.24) Social History [...] 8:50 AM EDT) VIDEO CAPSULE ENDOSCOPY [facility] Endoscopy Procedure Date: 02/02/2018 8:50 AM ? Patient Name: Jerome Robledo ? Date of : 1985 ? Age: 32 ? Order #: [id number] ? Instrument Name: ? Procedure: ? Video [...] alone documented in this encounter Care Teams Global Mobility Specialist Relationship Specialty Start Date End Date Lucia Taylor APRN PCP - General Family Medicine 10/14/17 05/03/24 documented as of this encounter
--- OUTSIDE RECORDS SUMMARY | 2024-12-01 10:34 | XMS_ITS | Encounter Summary ---
Author Organization [facility] Address [facility] [place] [address] Care Team Providers Care Resident Caregiver Name Role Phone Lucia Taylor APRN Primary Care Provider [phone] Encounter Details Date Type Department Care Team (Late st Contact Info) Description 11/02/2017 Orders [place] [address] Igor Denney MD [facility] [place] [address] Bilious vomiting with nausea Social History Tobacco [...] nausea documented in this encounter Care Teams Resident Caregiver Relationship Specialty Start Date End Date Lucia Taylor APRN PCP - General Family Medicine 10/14/17 05/03/24 documented as of this encounter
--- OUTSIDE RECORDS SUMMARY | 2024-12-01 10:34 | XMS_ITS | Encounter Summary ---
Author Organization [facility] Address [facility] [place] [address] Care Team Providers Care E D Tech Name Role Phone Lucia Taylor APRN Primary Care Provider [phone] Reason for Visit * Reason Comments Follow-up Encounter Details Date Type Department Care Team (Late st Contact Info) Description 05/04/2018 9:30 AM EDT Office [place] [address] Igor Denney MD [facility] [place] [address] Chronic nausea Social History Tobacco Use Types [...] Denney Chase - 05/04/2018 9:30 AM EDT [facility] Division of Gastroenterology and Hepatology Outpatient [...] vomiting, and left sided abdominal pain with t10-bpyry unintentional weight loss. - Evaluation at [facility] that included an abdominal ultrasound and [...] The specimen was sent to the [facility] for further evaluation for amyloid. Mass spectrometry was performed that supported the diagnosis of amyloidosis; however, subtyping could not be performed due to an inadequate specimen. - Second opinion at [facility] and was seen by Dr. Tijerina and [...] - Capsule study normal - Admitted to [facility] on 07/08/2017 and taken to the OR [...] gluten free diets - MRI brain at [facility] negative - [place] [facility] with one polyp - Gastric emptying at [facility] normal - Repeat capsule at [facility] normal - Medication trials: No improvement with [...] A tissue block was submitted to [facility] [employer]; a repeat congo red was performed which [...] Dr. Steve Denney MD [place] [address] P: [phone] F: [phone] CC Lucia Taylor APRN [address] [place] [address] * Britt Wilson MD - 05/04/2018 9:30 AM EDT ATTENDING ATTESTATION: I have discussed the patient with the GI fellow, Dr. Denney and I agree with his findings, assessment, and plan as written. Britt Wilson MD Gastroenterology attending Pager [phone] documented in this encounter Plan of Treatment Not on file documented as of this encounter Visit Diagnoses Diagnosis Chronic nausea Nausea alone documented in this encounter Care Teams E D Tech Relationship Specialty Start Date End Date Lucia Taylor APRN PCP - General Family Medicine 10/14/17 05/03/24 documented as of this encounter
--- OUTSIDE RECORDS SUMMARY | 2024-12-01 10:34 | XMS_ITS | Encounter Summary ---
Author Organization [facility] [place] [address] Care Team Providers Care Clinical Care Coordinator Name Role Phone Lucia Taylor APRN Primary Care Provider [phone] Reason for Referral * Surgical (Routine) - Closed Specialty Diagnoses / Procedures Referred By Isra gage Referred To Contact Gastroenterology Diagnoses Chronic nausea Procedures VIDEO CAPSULE ENDOSCOPY Igor Denney MD [facility] [place] [address] [facility] Endoscopy [address] [place] [address] Referral ID Status Reason Start Date Expiration Date V isits Requested Visits Authorized [id number] Closed Specialty Service Requested 01/12/2018 01/12/2019 1 1 Reason for Visit * Reason Comments Follow-up Encounter Details Date Type Department Care Team (Late st Contact Info) Description 01/12/2018 10:00 AM EDT Office [place] [address] Igor Denney MD [facility] [place] [address] Chronic nausea; Irritable bowel syndrome [...] Igor Denney - 01/12/2018 10:00 AM EDT [facility] Division of Gastroenterology and Hepatology Outpatient Consultation [...] vomiting, and left sided abdominal pain with s10-evrwe unintentional weight loss. - Evaluation at [facility] that included an abdominal ultrasound and [...] reactive. The specimen was sent to the [facility] for further evaluation for amyloid. [...] gluten free diets - MRI brain at [facility] negative - Silt [facility] with one polyp - Gastric emptying at [facility] normal - Medication trials: No improvement with [...] analysis. A tissue block was submitted to [facility]; a repeat congo red was performed which was also positive.?The liquid chromatography tandem mass spectrometry (LC MS/MS) was performed on the peptide extracted from the [place] red positive dissected areas. LC MS/MS detected a peptide profile that includes proteins deposited with amyloid of all types.?This finding supports a diagnosis of amyloidosis. [facility] could not determine the specific type of [...] Dr. Steve Denney MD [place] [address] P: [phone] F: [phone] Lucia Taylor APRN [address] [place] [address] * Britt Wilson MD - 01/12/2018 10:00 AM EDT ATTENDING ATTESTATION: I have seen and examined the patient with the GI fellow, Dr. Denney and I agree with his findings, assessment, and plan as written. Britt Wilson MD Gastroenterology attending Pager [phone] documented in this encounter Plan of Treatment Scheduled Orders Name Type Priority Associated Diagnoses Orde r Schedule VIDEO CAPSULE ENDOSCOPY Procedures Routine Chronic nausea Ordered: 01/12/2018 documented as of this encounter Visit Diagnoses Diagnosis Chronic nausea Nausea alone Irritable bowel syndrome with constipation Irritable bowel syndrome documented in this encounter Care Teams Clinical Care Coordinator Relationship Specialty Start Date End Date Lucia Taylor APRN PCP - General Family Medicine 10/14/17 05/03/24 documented as of this encounter
--- OUTSIDE RECORDS SUMMARY | 2024-12-01 10:34 | XMS_ITS | Encounter Summary ---
Author Organization [facility] Address [facility] [place] [address] Care Team Providers Care Parks And Recreation Manager Name Role Phone Lucia Taylor APRN Primary Care Provider [phone] Encounter Details Date Type Department Care Team (Late st Contact Info) Description 02/22/2018 Orders [place] [address] Igor Denney MD [facility] [place] [address] Social History Tobacco Use Types Packs/Day Years [...] on filedocumented in this encounter Care Teams Parks And Recreation Manager Relationship Specialty Start Date End Date Lucia Taylor APRN PCP - General Family Medicine 10/14/17 05/03/24 documented as of this encounter
--- OUTSIDE RECORDS SUMMARY | 2024-12-01 10:34 | XMS_ITS | Encounter Summary ---
Author Organization [facility] Address [address] [place] [address] Care Team Providers Care Fitter Armament Name Role Phone Rebekah Greco COTTON FACTOR Primary Care Provider [phone] Encounter Details Date Type Department Care Team (Late st Contact Info) Description 08/14/2024 Lab Requisition [facility] Pathology & Laboratory Medicine - [facility] [address] [place], [place] [address] Outr Resulting Lab, Provider Social History Tobacco [...] 49 See Note pg/mL 08/14/2024 22:37 EDT [facility] Comment: NOTE: FEMALE REFERENCE [...] & BLOOD GA S ORDERABLES Final Result [facility] [address] [place] [address] documented in this encounter Visit Diagnoses Not on filedocumented in this encounter Care Teams Fitter Armament Relationship Specialty Start Date End Date Rebekah Greco NP PCP - General 12/19/17 documented as of this encounter
--- OUTSIDE RECORDS SUMMARY | 2024-12-01 10:34 | XMS_ITS | Encounter Summary ---
Author Organization [facility] Address [facility] [place] [address] Care Team Providers Care Educational Aide Name Role Phone Lucia Taylor APRN Primary Care Provider [phone] Encounter Details Date Type Department Care Team (Late st Contact Info) Description 11/03/2017 Telephone [place] [address] gIor Denney MD [facility] [place] [address] Social History Tobacco Use Types Packs/Day Years [...] on filedocumented in this encounter Care Teams Educational Aide Relationship Specialty Start Date End Date Lucia Taylor APRN PCP - General Family Medicine 10/14/17 05/03/24 documented as of this encounter
--- OUTSIDE RECORDS SUMMARY | 2024-12-01 10:34 | XMS_ITS | Referral Summary ---
Author Organization [facility] Address [address] [place] [address] Care Team Providers Care Radio Maintainer Name Role Phone Rebekah Greco CAR TRIMMER Primary Care Provider [phone] Allergies No known active allergies Medications Multivitamins [...] by mouth daily. Active UNABLE TO FIND Kilnor--Birth ontrol Active triamcinolone (KENALOG) 0.1 % creamIndication [...] C Antibody Negative Negative 08/19/2021 12:18 EDT [facility] Blood VENOUS BLOOD / Unknown 08/18/2021 7:20 EDT 08/18/2021 16:26 EDT us Provider Outr Resulting Lab CHEMISTRY & BLOOD GA S ORDERABLES Final Result [facility] [address] [place] [address] from Last 3 Months or Most Recently Relevant to Health Maintenance Insurance [facility] Care Teams Radio Maintainer Relationship Specialty Start Date End Date Rebekah Greco NP PCP - General 12/19/17
--- OUTSIDE RECORDS SUMMARY | 2024-12-01 10:34 | XMS_ITS | Encounter Summary ---
Author Organization [facility] Address [address] [place] [address] Care Team Providers Care Internal Combustion Engine Assembler Name Role Phone Rebekah Greco TRIPOLER Primary Care Provider [phone] Encounter Details Date Type Department Care Team (Late st Contact Info) Description 08/17/2024 Lab Requisition [facility] Pathology & Laboratory Medicine - [facility] [address] [place], [place] [address] Outr Resulting Lab, Provider Social History Tobacco [...] 97 - 169 ng/dL 08/17/2024 18:37 EDT [facility] Blood VENOUS BLOOD / Unknown 08/17/2024 7:35 EDT 08/17/2024 17:47 EDT us Provider Outr Resulting Lab CHEMISTRY & BLOOD GA S ORDERABLES Final Result Performing Organization Address City/State/[facility] Co de Phone Number [facility] [address] [place] [address] documented in this encounter Visit Diagnoses Not on filedocumented in this encounter Care Teams Internal Combustion Engine Assembler Relationship Specialty Start Date End Date Rebekah Greco NP PCP - General 12/19/17 documented as of this encounter
--- OUTSIDE RECORDS SUMMARY | 2024-12-01 10:34 | XMS_ITS | Encounter Summary ---
Author Organization [facility] Address [facility] [place] [address] Care Team Providers Care Buhr Dresser Name Role Phone Rebekah Greco APRN Primary Care Provider [phone] Reason for Visit * Reason Comments Skin Check * Consultation (Routine) - Closed Specialty Diagnoses / Procedures Referred By Isra gage Referred To Contact Dermatology Diagnoses Melanocytic nevi, unspecified Patient has skin concerns and would like a FSE. Rebekah Greco APRN [address] [place] [address] [facility] [address] [place] [phone] Referral ID Status Reason Start Date Expiration Date Visits Re quested Visits Authorized [id number] Closed 09/25/2024 09/25/2025 1 1 Encounter Details Date Type Department Care Team (Late st Contact Info) Description 10/26/2024 3:45 PM EST Office Visit Dermatology at [address] [address] Duglas Raymond MD [address] [facility] [place] [address] Nevus of face Social History Tobacco Use Types Packs/Day Years Used Date Smoking Tobacco: Never Smokeless Tobacco: Never Alcohol Use Standard Drinks/Week Comments No 0 (1 standard drink = 0.6 oz pur e alcohol) Sex and Gender Information Value Date Recorded Sex Assigned at Not on file Gender Identity Not on file Sexual Orientation Not on file documented as of this encounter Progress Notes * Duglas Raymond MD - 10/26/2024 3:45 PM EST Problem: New patient, initial visit, skin checkup Jerome presents today at the behest of her mother, a patient of mine, for general skin checkup. Shestates that she used to run quite a bit and has had a fair amount of sun exposure. She is a mother with children and does use SPF 50- 70 sunscreen and tries to protect herself and her children from the sun. She has no personal history of skin cancer. She has no particular lesions of concern today except for a pigmented area on the left lower lip. Physical examination reveals a melanotic macule present on the left lower lip and 2 separate 3 mm macules. She has a benign examination otherwise of the scalp the face the chest the back the hands arms forearms thighs and calves. There is no evidence of any atypical lesions no evidence of any skin cancer. Assessment plan: Benign skin examination 1. Patient reassured about her benign skin examination 2. Continue sun avoidance precautions 3. Return to clinic here prn Melanotic macules, left lower lip 1. Patient reassured 2. No treatment is necessary CC: Rebekah Greco APRN documented in this encounter Plan of Treatment Not on file documented as of this encounter Visit Diagnoses Diagnosis Nevus of face Benign neoplasm of skin of other and unspecified parts of face documented in this encounter Care Teams Buhr Dresser Relationship Specialty Start Date End Date Rebekah Greco APRN [address] [place] [address] PCP - General Internal Medicine 05/04/24 documented as of this encounter
--- OUTSIDE RECORDS SUMMARY | 2024-12-01 10:34 | XMS_ITS | Encounter Summary ---
Author Organization [facility] Address [facility] [place] [address] Care Team Providers Care Mason Foreman/Superintendant Name Role Phone Tayler Gutiérrez MD Primary Care Provider + Reason for Visit * Diagnostic Test (Routine) - Closed Specialty Diagnoses / Procedures Referred By Isra gage Referred To Contact Radiology Diagnoses Chronic abdominal pain Procedures NM Gastric Emptying Scan Igor Denney MD [facility] [place] [address] [place] [address] Referral ID Status Reason Start Date Expiration Date V isits Requested Visits Authorized [id number] Closed Specialty Service Requested 10/03/2017 10/03/2018 5 5 Encounter Details Date Type Department Care Team (Latest Contact Info) Description 10/12/2017 9:41 AM EST - 10/12/2017 11:59 PM [facility] Encounter [place] [address] Lisa Sage MD [facility] [place] [address] Discharge Disposition: Home Social History [...] on filedocumented in this encounter Care Teams Mason Foreman/Superintendant Relationship Specialty Start Date End Date Tayler Gutiérrez MD [address] [place] [address] PCP - General 08/30/14 10/13/17 documented as of this encounter
--- OUTSIDE RECORDS SUMMARY | 2024-12-01 10:34 | XMS_ITS | Encounter Summary ---
Author Organization [facility] Address [facility] [place] [address] Care Team Providers Care Multifocal Lens Assembler Name Role Phone Tayler Gutiérrez MD Primary Care Provider + Encounter Details Date Type Department Care Team (Latest Contact Info) Description 09/12/2017 - 09/12/2017 11:[address] [facility] Hospital Encounter Radiology Library [place] [address] [facility] [place] [address] Pain Discharge Disposition: Home Social History Tobacco [...] & Pelvis (09/12/2017 12:00 AM EST) Narrative [facility] - 09/13/2017 3:57 PM EST This exam is for storage only and is auto-finalizing. Austen Wilkinson MD IMG FILM LIBRARY OR DERABLES Performing Organization Address City/State/[facility] Co de Phone Number [place], [place] documented in this encounter Visit Diagnoses Diagnosis Pain Generalized pain documented in this encounter Care Teams Multifocal Lens Assembler Relationship Specialty Start Date End Date Tayler Gutiérrez MD [address] [place] [address] PCP - General 08/30/14 10/13/17 documented as of this encounter
--- OUTSIDE RECORDS SUMMARY | 2024-12-01 10:34 | XMS_ITS | Encounter Summary ---
Author Organization [facility] Address [address] [place] [address] Care Team Providers Care Plaster Foreman Name Role Phone Rebekah Greco SENIOR NURSE MANAGER Primary Care Provider [phone] Encounter Details Date Type Department Care Team (Late st Contact Info) Description 08/08/2024 Lab Requisition [facility] Pathology & Laboratory Medicine - [facility] [address] [place], [place] [address] Outr Resulting Lab, Provider Social History Tobacco [...] 2.8 - 5.3 pg/mL 08/08/2024 17:[address] [facility] Blood VENOUS BLOOD / Unknown 08/07/2024 19:15 EDT 08/08/2024 16:59 EDT us Provider Outr Resulting Lab CHEMISTRY & BLOOD GA S ORDERABLES Final Result Performing Organization Address [facility] de Phone Number [facility] [address] [place] [address] * THYROPEROXIDASE ANTIBODY (08/07/2024 19:15 EDT) Thyroperoxidase Ab <28 <=60 U/mL 2023 18:[address] [facility] Blood VENOUS BLOOD / Unknown 08/07/2024 19:15 EDT 08/08/2024 16:59 EDT us Provider Outr Resulting Lab CHEMISTRY & BLOOD GA S ORDERABLES Final Result Performing Organization Address City/[facility] de Phone Number [facility] [address] [place] [address] documented in this encounter Visit Diagnoses Not on filedocumented in this encounter Care Teams Plaster Foreman Relationship Specialty Start Date End Date Rebekah Greco NP PCP - General 12/19/17 documented as of this encounter
--- OUTSIDE RECORDS SUMMARY | 2024-12-01 10:34 | XMS_ITS | Encounter Summary ---
Author Organization [facility] [place] [address] Care Team Providers Care Captain Fire Prevention Bureau Name Role Phone Lucia Taylor APRN Primary Care Provider [phone] Reason for Referral * Diagnostic Test (Routine) - Closed Specialty Diagnoses / Procedures Referred By Contac t Referred To Contact Radiology Diagnoses Chronic abdominal pain Procedures MRI Brain wwo Contrast (Generic) Igor Denney MD [facility] [place] [address] [place] [address] Referral ID Status Reason Start Date Expiration Date V isits Requested Visits Authorized [id number] Closed Specialty Service Requested 10/06/2017 12/04/2017 1 1 Reason for Visit * Diagnostic Test (Routine) - Closed Specialty Diagnoses / Procedures Referred By Contac t Referred To Contact Radiology Diagnoses Chronic abdominal pain Procedures MRI Brain wwo Contrast (Generic) Igor Denney MD [facility] [place] [address] [place] [address] Referral ID Status Reason Start Date Expiration Date V isits Requested Visits Authorized [id number] Closed Specialty Service Requested 10/06/2017 12/04/2017 1 1 Encounter Details Date Type Department Care Team (Latest Contact Info) Description 10/14/2017 7:58 AM EST - 10/14/2017 11:59 PM EST Hospital [place] [address] [facility] [place] [address] Chronic abdominal pain Discharge Disposition: Home Social [...] Lou RN - 10/14/2017 9:30 AM EST [id number]: Arrived while pt still in MRI machine. Snapshot of events/report received by life safety RN. On monitor, pt bradycardic with heart rate in the upper 40's/lower 50's and a visible bundle branch block on surveillance system monitor, systolic noninvasive bp in the 90's with [...] brain MRI. 10:08 AM Lisa Sage MD [facility] MRI ORDERABLES * POCT Glucose (10/14/2017 8:25 AM EST) Glucose, POC 96 65 - 199 mg/dL [facility] Comment: Supplemental ranges: <140 mg/dL before meals <180 mg/dL all other times of the day Blood specimen (specimen) 10/14/2017 8:25 AM EST 10/14/2017 8:25 AM EST Lisa Sage MD POINT OF CARE TEST O RDERABLES [facility] [place] [address] documented in this encounter Visit Diagnoses Diagnosis [...] mLs documented in this encounter Care Teams Captain Fire Prevention Bureau Relationship Specialty Start Date End Date Lucia Taylor, KNITTER HAND PCP - General Family Medicine 10/14/17 05/03/24 documented as of this encounter
--- OUTSIDE RECORDS SUMMARY | 2024-12-01 10:34 | XMS_ITS | Encounter Summary ---
Author Organization [facility] Address [facility] [place] [address] Care Team Providers Care Uniform Maker Name Role Phone Lucia Taylor APRN Primary Care Provider [phone] Encounter Details Date Type Department Care Team (Late st Contact Info) Description 03/22/2024 3:00 PM EDT Ancillary Procedure Radiology Library at [facility] [place] [address] Arsen Young MD [facility] [place] [address] Social History Tobacco Use Types Packs/Day Years [...] EDT) 05/08/2024 12:2 8 PM EDT Narrative RAD - 05/08/2024 12:28 PM EDT This exam is auto-finalizing. It's purpose is for storage only. Arsen Young MD IMG FILM LIBRARY OR DERABLES [place], [place] documented in this encounter Visit Diagnoses Not on filedocumented in this encounter Care Teams Uniform Maker Relationship Specialty Start Date End Date Lucia Taylor APRN PCP - General Family Medicine 10/14/17 05/03/24 documented as of this encounter
--- OUTSIDE RECORDS SUMMARY | 2024-12-01 10:34 | XMS_ITS | Encounter Summary ---
Author Organization [facility] Address [facility] [place] [address] Care Team Providers Care Operations Team Leader Name Role Phone Rebekah Greco SHERRY Primary Care Provider [phone] Encounter Details Date Type Department Care Team (Late st Contact Info) Description 03/22/2024 Interpretation Only Radiology Library at [facility] [place] [address] Arsen Young MD [facility] [place] [address] Social History Tobacco Use Types Packs/Day Years [...] Young MD IMG FILM LIBRARY OR DERABLES [place], [place] documented in this encounter Visit Diagnoses Not on filedocumented in this encounter Care Teams Operations Team Leader Relationship Specialty Start Date End Date Rebekah Greco APRN [address] [place] [address] PCP - General Internal Medicine 05/04/24 documented as of this encounter
--- OUTSIDE RECORDS SUMMARY | 2024-12-01 10:34 | XMS_ITS | Encounter Summary ---
Author Organization [facility] [place] [address] Care Team Providers Care Case Preparer And Liner Name Role Phone Lucia Taylor APRN Primary Care Provider [phone] Encounter Details Date Type Department Care Team (Late st Contact Info) Description 02/29/2024 Ancillary Procedure Radiology Library at [facility] [place] [address] Lucia Taylor APRN [address] [address] Social History Tobacco Use Types [...] DX Knee (02/29/2024 12:00 AM EDT) Narrative [facility] - 04/18/2024 1:38 PM EDT This exam is auto-finalizing. It's purpose is for storage only. Lucia Taylor APRN IMFred FILM LIBRARY OR DERABLES [place], [place] documented in this encounter Visit Diagnoses Not on filedocumented in this encounter Care Teams Case Preparer And Liner Relationship Specialty Start Date End Date Lucia Taylor APRN PCP - General Family Medicine 10/14/17 05/03/24 documented as of this encounter
--- OUTSIDE RECORDS SUMMARY | 2024-12-01 10:34 | XMS_ITS | Encounter Summary ---
Author Organization Formerly [facility] Address [facility] [place] [address] Care Team Providers Care Med Peds Name Role Phone Tayler Gutiérrez MD Primary Care Provider + Reason for Visit * Reason Comments Rash Encounter Details Date Type Department Care Team (Late st Contact Info) Description 08/30/2014 2:00 PM EST Office Visit Dermatology at [facility] [address] [place] [address] Jennyfer Peng MD Atopic dermatitis Discharge Disposition: [...] me, seen in consultation and referred by [facility] Dermatology specifically for the evaluation and management [...] relevant to her. She was evaluated during [facility] Dermatology and was thought to have an allergy; she states some people thought the patch testing should be repeated, and some thought she should be referred to [facility] for further patch testing. In addition to prednisone, she has tried topical steroids including clobetasol and betametasone valerate, antihistamines, Elidel 1% BID, and phototherapy. She did phototherapy twice a week for several weeks (four treatments according to her paper records) but had to stop because she lives near the [facility] and had difficulty with the distance to [place]. She also tried an oral pill (shedoes [...] definitive diagnosis. 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 [...] the only allergen being bacitracin which Ms. Robledo does not use. We discussed the rolefor [...] pt to continue to follow-up with a screedman for longitudinal care, as this may help to understand the evolution and etiology of her condition. I am happy to see the patient back if she so chooses. Follow-up PRN. I, Lynnette Johnson [facility], am documenting this encounter acting as the scribe for and in the presence of Dr. Jennyfer Peng. I performed the above scribed service and agree with the accuracy of the documentation of this encounter. Jennyfer Peng MD, PGY2 Resident in Dermatology [facility] Patient seen and evaluated with staff screedman: Wally Chawla MD Section of Dermatology [facility] documented in this encounter Plan of Treatment Not on file documented as of this encounter Visit Diagnoses Diagnosis Atopic dermatitis Other atopic dermatitis and related conditions documented in this encounter Care Teams Med Peds Relationship Specialty Start Date End Date Tayler Gutiérrez MD [address] [place] [id number] PCP - General 08/30/14 10/13/17 documented as of this encounter
--- OUTSIDE RECORDS SUMMARY | 2024-12-01 10:34 | XMS_ITS | Encounter Summary ---
Author Organization [facility] Address [facility] [place] [address] Care Team Providers Care Brine Purifier Name Role Phone Tayler Gutiérrez MD Primary Care Provider + Reason for Visit * Diagnostic Test (Routine) - Closed Specialty Diagnoses / Procedures Referred By Isra gage Referred To Contact Radiology Diagnoses Chronic abdominal pain Procedures NM Gastric Emptying Scan Igor Denney MD [facility] [place] [address] [place] [address] Referral ID Status Reason Start Date Expiration Date V isits Requested Visits Authorized [id number] Closed Specialty Service Requested 10/03/2017 10/03/2018 5 5 Encounter Details Date Type Department Care Team (Latest Contact Info) Description 10/12/2017 9:40 AM EST Hospital Encounter [place] [address] Lisa Sage MD [facility] [place] [address] Discharge Disposition: Home Social History [...] the residents interpretationand agree with the findings, Dena Tellez at 10/12/2017 2:02 PM Lisa Sage MD IMG NM ORDERABLES documented in this encounter Visit Diagnoses Not on filedocumented in this encounter Care Teams Brine Purifier Relationship Specialty Start Date End Date Tayler Gutiérrez MD [address] [place] [address] PCP - General 08/30/14 10/13/17 documented as of this encounter
--- OUTSIDE RECORDS SUMMARY | 2024-12-01 10:34 | XMS_ITS | Encounter Summary ---
Author Organization [facility] Address [facility] [place] [address] Care Team Providers Care Capacity Planning Analyst Name Role Phone Tayler Gutiérrez MD Primary Care Provider + Encounter Details Date Type Department Care Team (Latest Contact Info) Description 04/18/2017 - 04/18/2017 11:59 PM EDT Hospital Encounter Radiology Library at [facility] [place] [address] Alexandre Escalante MD [facility] [place] [address] Pain Discharge Disposition: Home Social History Tobacco [...] MR Abdomen (04/18/2017 12:00 AM EDT) Narrative [facility] - 10/25/2017 9:13 PM EST This exam is for storage only and is auto-finalizing. Alexandre Canales MD IMG FILM LIBRARY ORDERABLES Performing Organization Address City/State/[facility] Co de Phone Number [place], [place] documented in this encounter Visit Diagnoses Diagnosis Pain Generalized pain documented in this encounter Care Teams Capacity Planning Analyst Relationship Specialty Start Date End Date Tayler Gutiérrez MD [address] [place] [address] PCP - General 08/30/14 10/13/17 documented as of this encounter
--- OUTSIDE RECORDS SUMMARY | 2024-12-01 10:34 | XMS_ITS | Encounter Summary ---
Author Organization [facility] Address [facility] [place] [address] Care Team Providers Care Strawhat Inspector And Packer Name Role Phone Tayler Gutiérrez MD Primary Care Provider + Reason for Visit * Diagnostic Test (Routine) - Closed Specialty Diagnoses / Procedures Referred By Isra gage Referred To Contact Radiology Diagnoses Chronic abdominal pain Procedures NM Gastric Emptying Scan Igor Denney MD [facility] [place] [address] [place] [address] Referral ID Status Reason Start Date Expiration Date V isits Requested Visits Authorized [id number] Closed Specialty Service Requested 10/03/2017 10/03/2018 5 5 Encounter Details Date Type Department Care Team (Latest Contact Info) Description 10/12/2017 9:39 AM EST Hospital Encounter [place] [address] Lisa Sage MD [facility] [place] [address] Discharge Disposition: Home Social History [...] on filedocumented in this encounter Care Teams Strawhat Inspector And Packer Relationship Specialty Start Date End Date Tayler Gutiérrez MD [address] [place] [address] PCP - General 08/30/14 10/13/17 documented as of this encounter
--- OUTSIDE RECORDS SUMMARY | 2024-12-01 10:34 | XMS_ITS | Encounter Summary ---
Author Organization [facility] Address [facility] [place] [address] Care Team Providers Care Middle School Humanities Teacher Name Role Phone Tayler Gutiérrez MD Primary Care Provider + Encounter Details Date Type Department Care Team (Latest Contact Info) Description 03/30/2017 - 03/30/2017 11:59 PM EDT Hospital Encounter Radiology Library at [facility] [place] [address] Alexandre Escalante MD [facility] [place] [address] Pain Discharge Disposition: Home Social History Tobacco [...] & Pelvis (03/30/2017 12:00 AM EDT) Narrative RAD - 10/25/2017 9:16 PM EST This exam is for storage only and is auto-finalizing. Alexandre Canales MD IMG FILM LIBRARY ORDERABLES Performing Organization Address City/State/[facility] Co de Phone Number [place], [place] documented in this encounter Visit Diagnoses Diagnosis Pain Generalized pain documented in this encounter Care Teams Middle [employer] Humanities Teacher Relationship Specialty Start Date End Date Tayler Gutiérrez MD [address] [place] [address] PCP - General 08/30/14 10/13/17 documented as of this encounter
--- OUTSIDE RECORDS SUMMARY | 2024-12-01 10:34 | XMS_ITS | Encounter Summary ---
Author Organization [facility] Address [facility] [place] [address] Care Team Providers Care Shaper Set Up Operator Name Role Phone Lucia Taylor APRN Primary Care Provider [phone] Reason for Visit * Reason Comments Follow-up Encounter Details Date Type Department Care Team (Late st Contact Info) Description 11/17/2017 8:30 AM EST Office [place] [address] Igor Denney MD [facility] [place] [address] Chronic nausea Social History Tobacco Use Types [...] Igor Denney - 11/17/2017 8:30 AM EST [facility] Division of Gastroenterology and Hepatology Outpatient Consultation [...] vomiting, and left sided abdominal pain with [id number] unintentional weight loss. - Evaluation at [facility] that included an abdominal ultrasound and [...] reactive. The specimen was sent to the [facility] for further evaluation for amyloid. Mass spectrometry was performed that supported the diagnosis of amyloidosis; however, subtyping could not be performed due javier inadequate specimen. - Second opinion at [facility] and was seen by Dr. Tijerina [...] - Capsule study normal - Admitted to [facility] on 07/08/2017 and taken to the [...] gluten free diets - MRI brain at [facility] negative - [place] [facility] with one polyp - Gastric emptying at [facility] normal Interval events: - She went for [...] analysis. A tissue block was submitted to [facility]; a repeat congo red was performed which was also positive.?The liquid chromatography tandem mass spectrometry (LC MS/MS) was performed on the peptide extracted from the Congo red positive dissected areas. LC MS/MS detected a peptide profile that includes proteins deposited with amyloid of all types.?This finding supports a diagnosis of amyloidosis. [facility] could not determine the specific type [...] Dr. Josseline Denney MD Fellow [place] [address] P: [phone] F: [phone] CC Lucia Taylor, THERMOCOUPLE TESTER [address] [place] [address] * Zulema Manjarrez MD - 11/17/2017 8:30 [...] 9:19 AM EST) Neutrophil % 40.9 % [facility] Neutrophil Absolute 2.85 1.70 - 6.10 x10(3)/mc L [facility] Lymph % 49.9 % [facility] Lymphocytes Abs 3.5(H) 0.9 - 3.2 x10(3)/mc L [facility] Monocyte % 6.6 % [facility] Monocyte Abs 0.5 0.3 - 0.9 x10(3)/mc L [facility] Eos % 1.9 % [facility] Eosinophils Abs 0.1 0.0 - 0.4 x10(3)/[facility] Basophil % 0.6 % [facility] Baso Absolute 0.0 0.0 - 0.1 x10(3)/[facility] Immature Gran % 0.10 % [facility] Comment: Immature granulocytes(IG's)percentage and absolute count will include metamyelocytes, myelocytes, and promyelocytes. Blood smears from CBCs yielding IG's will be scanned manually for concordance. If this scan disagrees with the automated IG or if promyelocytes are noted, a manual differential will be performed. Immature Gran Absolute 0.01 0.00 - 0.04 x10(3)/[facility] Blood specimen (specimen) 11/17/2017 9:19 AM EST 11/17/2017 9:25 AM EST Narrative Resulting Agency Comment Spec In Lab Igor Denney MD HEMATOLOGY ORDERABLE S [facility] [place] [address] * Hemogram (11/17/2017 9:19 AM EST) White Blood Cell 7.0 4.0 - 9.5 x10(3)/[facility] Red Blood Cell 4.88 4.00 - 5.21 x10(6)/[facility] Hemoglobin 15.0 11.7 - 15.5 gm/dL [facility] Hematocrit 44.6 35.7 - 45.8 % [facility] Mean Cell Volume 91.4 82.6 - 94.4 fL [facility] Mean Cell Hemoglobin 30.7 27.1 - 32.0 pg [facility] Mean Cell Hemoglobin Concentration 33.6 31.7 - 35.0 gm/dL [facility] Platelet 291 145 - 357 x10(3)/[facility] RDW Standard Deviation 39.6 37.0 - [address] [facility] RDW coefficient of variation 11.8 11.5 - 14.1 % [facility] Mean Platelet Volume 9.5 7.6 - 12.9 [facility] NRBC% auto 0.0 % [facility] NRBC Absolute 0.000 0.000 - 0.000 x10(3)/[facility] Blood specimen (specimen) 11/17/2017 9:19 AM EST 11/17/2017 9:25 AM EST Narrative Resulting Agency Comment Spec In Lab Igor Denney MD HEMATOLOGY ORDERABLE S [facility] [place] [address] * (ABNORMAL) Comprehensive metabolic panel (non-fasting) (11/17/2017 9:19 AM EST) Glucose 64(L) 65 - 199 mg/dL [facility] Comment:Diabetes: >=200 mg/d L plus symptoms Blood Urea Nitrogen 14 8 - 18 mg/dL [facility] Creatinine 0.79 0.70 - 1.20 mg/dL [facility] Sodium 140 135 - 145 mmol/L [facility] Potassium 3.7 3.5 - 5.0 mmol/L [facility] Comment: Please note: ??Patients with WBC >100,000 may have falsely elevated Potassium levels. ??For accurate Potassium quantification in these patients send serum separator tube (gold top) for subsequent determinations. ??Contact the Clinical Chemistry Laboratory if there are any questions. Chloride 100 98 - 107 mmol/L [facility] Carbon Dioxide 29 22 - 31 mmol/L [facility] Anion Gap 11 5 - 15 mmol/L [facility] Calcium 9.8 8.5 - 10.5 mg/dL [facility] Protein, Total 8.2(H) 6.1 - 8.0 gm/dL [facility] Albumin 4.9 3.2 - 5.2 gm/dL [facility] Aspartate Aminotransferase 30 0 - 30 unit/L [facility] Alanine Aminotransferase 25 0 - 30 unit/L [facility] Alkaline Phosphatase 41 40 - 104 unit/L [facility] Bilirubin, Total 0.2 0.2 - 1.3 mg/dL [facility] Est Glomerular Filtration Rate >60 >=60 [facility] Comment: The reported eGFR should be multiplied by 1.2 for patients. The MDRD is not an appropriate measure of renal function for patients with body mass extremes or in patients with acute kidney failure. http://[employer]/DHnkdep http://[employer]/DHMCnkf Blood specimen (specimen) 11/17/2017 9:19 AM EST 11/17/2017 9:25 AM EST Narrative Resulting Agency Comment Spec In Lab Zulema Manjarrez MD CHEMISTRY ORDERABLES Performing Organization Address City/[facility]/ZIP Co de Phone Number [facility] [place] [address] * Cortisol (11/17/2017 9:19 AM EST) Cortisol 13.0 mcg/dL [facility] Comment: Reference ranges: ??AM (6-10am): ??4.8-19.5 mcg/dL ??PM (4-8pm) : ??2.5-11.9 mcg/dL Blood specimen (specimen) 11/17/2017 9:19 AM EST 11/17/2017 9:25 AM EST Narrative Resulting Agency Comment Spec In Lab Zulema Manjarrez MD CHEMISTRY ORDERABLES [facility] [place] [address] documented in this encounter Visit Diagnoses Diagnosis Chronic nausea Nausea alone documented in this encounter Care Teams Shaper Set Up Operator Relationship Specialty Start Date End Date Lucia Taylor, THERMOCOUPLE TESTER PCP - General Family Medicine 10/14/17 05/03/24 documented as of this encounter
--- OUTSIDE RECORDS SUMMARY | 2024-12-01 10:34 | XMS_ITS | Encounter Summary ---
Author Organization [facility] Address [facility] [place] [address] Care Team Providers Care High School Teacher Name Role Phone Mile Grecoyce Jagruti POWELL Primary Care Provider [phone] Reason for Visit * Reason Comments Establish Care RIGHT KNEE PAIN * Consultation (Routine) - Authorized Specialty Diagnoses / Procedures Referred By Isra gage Referred To Contact Orthopaedics Diagnoses Chondromalacia patellae of right knee Shan Guillen MD [address] [place] [address] Buddy Ang MD [facility] [place] [address] Referral ID Status Reason Start Date Expiration Date Visits Requested Visits Authorized [id number] Authorized Consult, Test & Treat PCP Updated and/or Approved 04/24/2024 04/24/2025 6 6 Encounter Details Date Type Department Care Team (Latest Contact Info) Description 06/27/2024 3:30 PM EDT Office [place] [address] Arsen Young MD [facility] [place] [address] Patellofemoral disorder of right knee Social History [...] patient was [place] [address] I.D.: Jerome Robledo is a 39 y.o. year old female being seen today to discuss her right knee. Her history and physical exam were reviewed in detail. She Is here as a third opinion after seeing someone at [facility] and Dr. Guillen at [facility] regarding her right knee anterior knee pain. She has 25 year history of anterior R knee pain, had history of arthroscopic diagnostic surgery in 2002 with [facility]. Since then she has continued to have R anterior knee pain with MRI demonstrating some chrondromalacia of medial patellar facet. She has tried CSI's in the knee as well however with limited benefit. She has never had GASCA (Synvisc) injections. Takes tylenol and ibuprofen PRN but no narcotics. No major medical issues. 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 Some days she can do elliptical training. Was doing mild running up until February this year when she felt everything crunched in her right knee and she could not bear weight. She was partial WB on crutches for a couple weeks and then referred her to [facility]. Works out every night for 1 hour before doing paperwork for [employer] she says. Also feels like a month [...] alcohol and does not use drugs. 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 SIGNIFICANT MEDICAL COMORBIDITIES: There is no [...] $75,000 or more # People Supported 4 Korean, , No, not Korean// Race White Health Literacy Quite a bit [...] Young MD, MSc Division of Adult Reconstructive Materials TechProbation Counselor of Orthopaedics Department of Orthopaedics [facility] [address] [email or web address] documented in this encounter Plan of Treatment Not on file documented as of this encounter Visit Diagnoses Diagnosis Patellofemoral disorder of right knee Unspecified disorder of lower leg joint documented in this encounter Care Teams High School Teacher Relationship Specialty Start Date End Date Rebekah Greco APRN [address] [facility] [place] [address] PCP - General Internal Medicine 05/04/24 documented as of this encounter
--- OUTSIDE RECORDS SUMMARY | 2024-12-01 10:34 | XMS_ITS | Encounter Summary ---
Author Organization [facility] Address [facility] [place] [address] Care Team Providers Care Nondestructive Tester Name Role Phone Lucia Taylor APRN Primary Care Provider [phone] Reason for Visit * Auth/Cert Specialty Diagnoses / Procedures Referred By Isra gage Referred To Contact Diagnoses jejunual intusception Procedures PRG GI TRACT IMAGING, INTRALUMINAL, ESOPHAGUS THROUGH ILEUM, W INTERP & REPORT VIDEO CAPSULE ENDOSCOPY Referral ID Status Reason Start Date Expiration Date Visits Re quested Visits Authorized [id number] 1 1 Encounter Details Date Type Department Care Team (Late st Contact Info) Description 02/02/2018 7:39 AM EDT - 02/02/2018 10:09 PM EDT Hospital Encounter [place] [address] Mihai Mary MD [facility] [place] [address] Discharge Disposition: Home Social History Tobacco Use [...] (02/02/2018 8:50 AM EDT) VIDEO CAPSULE ENDOSCOPY [facility] Endoscopy Procedure Date: 02/02/2018 8:50 AM ? Patient Name: Jerome Robledo ? Date of : 1985 ? Age: 32 ? Order #: [id number] ? Instrument Name: ? Procedure: ? Video [...] on filedocumented in this encounter Care Teams Nondestructive Tester Relationship Specialty Start Date End Date Lucia Taylor, HOTEL RESERVATION AGENT PCP - General Family Medicine 10/14/17 05/03/24 documented as of this encounter
--- OUTSIDE RECORDS SUMMARY | 2024-12-01 10:34 | XMS_ITS | Encounter Summary ---
Author Organization [facility] Address [facility] [place] [address] Care Team Providers Care Astronautical Engineer Name Role Phone Rebekah Greco SHERRY Primary Care Provider [phone] Reason for Referral * Consultation (Routine) - Authorized Specialty Diagnoses / Procedures Referred By Isra gage Referred To Contact Orthopaedics Diagnoses Chondromalacia patellae of right knee Shan Guillen MD [address] [place] [address] Buddy Ang MD [facility] DR ORTHOPAEDIC [place] [address] Referral ID Status Reason Start Date Expiration Date Visits Requested Visits Authorized [id number] Authorized Consult, Test & Treat PCP Updated and/or Approved 04/24/2024 04/24/2025 6 6 Encounter Details Date Type Department Care Team (Latest Contact Info) Description 05/04/2024 Transcribe Orders eDH Incoming Referrals [phone] Shan Guillen MD [address] [place] [address] Chondromalacia patellae of right knee [...] as of this encounter Plan of Treatment Scheduled Referrals Name Type Priority Associated Diagnoses Order Schedule Referral to Orthopaedics Outpatient Referral Routine Chondromalacia patellae of right knee Ordered: 05/04/2024 documented as of this encounter Visit Diagnoses Diagnosis Chondromalacia patellae of right knee Chondromalacia of patella documented in this encounter Care Teams Astronautical Engineer Relationship Specialty Start Date End Date Rebekah Greco, SHERRY [address] [place] [address] PCP - General Internal Medicine 05/04/24 documented as of this encounter
--- OUTSIDE RECORDS SUMMARY | 2024-12-01 10:35 | XMS_ITS | Encounter Summary ---
Author Organization [facility] Address [address] [place] [address] Care Team Providers Care Railroad Supervisor Of Engines Name Role Phone Rebekah Greco TAX EXPERT Primary Care Provider [phone] Encounter Details Date Type Department Care Team (Late st Contact Info) Description 07/19/2023 Lab Requisition [facility] Pathology & Laboratory Medicine - [facility] [address] [place], [place] [address] Outr Resulting Lab, Provider Social History Tobacco [...] 43.8 See Table ng/mL 07/19/2023 18:55 EDT [facility] Comment: Female Reference Ranges: PHYSIOLOGICAL [...] S ORDERABLES Final Result Performing Organization Address [facility] Co de Phone Number [facility] [address] [place] [address] * ESTRADIOL, ADULTS (07/19/2023 7:15 EDT) [facility] Estradiol 1,228 See Note pg/mL 07/19/2023 18:36 EDT [facility] Comment: NOTE: FEMALE REFERENCE RANGES: [...] S ORDERABLES Final Result Performing Organization Address [facility] Co de Phone Number [facility] [address] [place] [address] documented in this encounter Visit Diagnoses Not on filedocumented in this encounter Care Teams Railroad Supervisor Of Engines Relationship Specialty Start Date End Date Rebekah Greco NP PCP - General 12/19/17 documented as of this encounter
--- OUTSIDE RECORDS SUMMARY | 2024-12-01 10:35 | XMS_ITS | Encounter Summary ---
Author Organization [facility] Address [address] [place] [address] Care Team Providers Care Classified Advertising Supervisor Name Role Phone Rebekah Greco PELLETIZER TENDER Primary Care Provider [phone] Encounter Details Date Type Department Care Team (Late st Contact Info) Description 07/27/2024 Lab Requisition [facility] Pathology & Laboratory Medicine - [facility] [address] [place], [place] [address] Outr Resulting Lab, Provider Social History Tobacco [...] 46.5 See Table ng/mL 07/27/2024 17:55 EDT [facility] Comment: Female Reference Ranges: PHYSIOLOGICAL [...] S ORDERABLES Final Result Performing Organization Address [facility] Co de Phone Number [facility] [address] [place] [address] * ESTRADIOL, ADULTS (07/27/2024 8:58 EDT) Estradiol 1,558 See Note pg/mL 07/27/2024 17:52 EDT [facility] Comment: NOTE: FEMALE REFERENCE RANGES: [...] S ORDERABLES Final Result Performing Organization Address [facility] Co de Phone Number [facility] [address] [place] [address] documented in this encounter Visit Diagnoses Not on filedocumented in this encounter Care Teams Classified Advertising Supervisor Relationship Specialty Start Date End Date Rebekah Greco NP PCP - General 12/19/17 documented as of this encounter
--- OUTSIDE RECORDS SUMMARY | 2024-12-01 10:35 | XMS_ITS | Encounter Summary ---
Author Organization [facility] Address [address] [place] [address] Care Team Providers Care Pump Operator Name Role Phone Rebekah Greco ADDRESSER Primary Care Provider [phone] Reason for Visit * Reason Onset Date Comments Results 01/06/2018 Encounter Details Date Type Department Care Team ([facility] st Contact Info) Description 01/06/2018 Telephone [facility] Dermatology 5th Floor [facility] [address] [place], [place] [address] Viky Kirkpatrick MD [address] [place] [address] [phone] Results Social History Tobacco Use Types Packs/Day [...] Miscellaneous Notes * Telephone Encounter - Virgil, Mandie - 01/11/2018 0917 EDT Labs received and scanned. Mandie Velascoke 01/11/2018 9:17 * Telephone Encounter - Ashley Zhu - 01/06/2018 1121 EDT Glenny is faxing labs from 12/19 and 01/05 * Telephone Encounter - Ashley Zhu - 01/06/2018 1108 EDT [facility] the patients most recent lab results documented in this encounter Plan of Treatment Not on file documented as of this encounter Visit Diagnoses Not on filedocumented in this encounter Care Teams Pump Operator Relationship Specialty Start Date End Date Rebekah Greco, GRACE PCP - General 12/19/17 documented as of this encounter
--- OUTSIDE RECORDS SUMMARY | 2024-12-01 10:35 | XMS_ITS | Encounter Summary ---
Author Organization [facility] Address [address] [place] [address] Care Team Providers Care Accessories Repairer Name Role Phone Rebekah Greco SOCIAL SCIENCE ANALYST Primary Care Provider [phone] Encounter Details Date Type Department Care Team (Late st Contact Info) Description 08/18/2021 Lab Requisition [facility] Pathology & Laboratory Medicine - [facility] [address] [place], [place] [address] Outr Resulting Lab, Provider Social History Tobacco [...] Surface Ag Negative Negative 08/19/2021 11:27 EDT [facility] Blood VENOUS BLOOD / Unknown 08/18/2021 7:20 EDT 08/18/2021 16:26 EDT us Provider Outr Resulting Lab CHEMISTRY & BLOOD GA S ORDERABLES Final Result Performing Organization Address [facility] Co de Phone Number [facility] [address] [place] [address] * HEPATITIS C AB W REFLEX TO HCV RNA BY PCR (08/18/2021 7:20 EDT) Hep C Antibody Negative Negative 08/19/2021 12:18 EDT [facility] Blood VENOUS BLOOD / Unknown 08/18/2021 7:20 EDT 08/18/2021 16:26 EDT us Provider Outr Resulting Lab CHEMISTRY & BLOOD GA S ORDERABLES Final Result Performing Organization Address [facility] Co de Phone Number [facility] [address] [place] [address] documented in this encounter Visit Diagnoses Not on filedocumented in this encounter Care Teams Accessories Repairer Relationship Specialty Start Date End Date Rebekah Greco NP PCP - General 12/19/17 documented as of this encounter
--- OUTSIDE RECORDS SUMMARY | 2024-12-01 10:35 | XMS_ITS | Encounter Summary ---
Author Organization [facility] Address [address] [place] [address] Care Team Providers Care Fisher Lampara Net Name Role Phone Rebekah Greco MANAGER ACQUISITION Primary Care Provider [phone] Encounter Details Date Type Department Care Team (Late st Contact Info) Description 07/18/2024 Lab Requisition [facility] Pathology & Laboratory Medicine - [facility] [address] [place], [place] [address] Outr Resulting Lab, Provider Social History Tobacco [...] <0.3 See Note mIU/mL 07/18/2024 19:26 EDT [facility] Comment: NOTE: Female Reference [...] & BLOOD GA S ORDERABLES Final Result [facility] [address] [place] [address] * PROGESTERONE (07/18/2024 7:26 EDT) Progesterone 44.0 See Table ng/mL 07/18/2024 18:26 EDT [facility] Comment: Female Reference Ranges: [...] & BLOOD GA S ORDERABLES Final Result [facility] [address] [place] [address] * ESTRADIOL, ADULTS (07/18/2024 7:26 EDT) Estradiol 2,637 See Note pg/mL 07/18/2024 18:26 EDT [facility] Comment: NOTE: FEMALE REFERENCE [...] & BLOOD GA S ORDERABLES Final Result [facility] [address] [place] [address] documented in this encounter Visit Diagnoses Not on filedocumented in this encounter Care Teams Fisher Lampara Net Relationship Specialty Start Date End Date Rebekah Greco NP PCP - General 12/19/17 documented as of this encounter
--- OUTSIDE RECORDS SUMMARY | 2024-12-01 10:35 | XMS_ITS | Encounter Summary ---
Author Organization [facility] Address [address] [place] [address] Care Team Providers Care Tire And Lube Technician Name Role Phone Rebekah Greco INSURANCE ADMINISTRATOR Primary Care Provider [phone] Encounter Details Date Type Department Care Team (Late st Contact Info) Description 07/11/2023 Lab Requisition [facility] Pathology & Laboratory Medicine - [facility] [address] [place], [place] [address] Outr Resulting Lab, Provider Social History Tobacco [...] 17.0 See Note mIU/mL 07/11/2023 18:[address] [facility] Comment: NOTE: Female Reference [...] GA S ORDERABLES Final Result [facility] [address] [place] [address] * PROGESTERONE (07/11/2023 7:45 EDT) Progesterone <0.2 See Table ng/mL 07/11/2023 17:[address] [facility] Comment: Female Reference Ranges: [...] GA S ORDERABLES Final Result [facility] [address] [place] [address] * ESTRADIOL, ADULTS (07/11/2023 7:45 EDT) Estradiol 2,673 See Note pg/mL 07/11/2023 17:[address] [facility] Comment: NOTE: FEMALE REFERENCE [...] GA S ORDERABLES Final Result [facility] [address] [place] [address] documented in this encounter Visit Diagnoses Not on filedocumented in this encounter Care Teams Tire And Lube Technician Relationship Specialty Start Date End Date Rebekah Greco NP PCP - General 12/19/17 documented as of this encounter
--- OUTSIDE RECORDS SUMMARY | 2024-12-01 10:35 | XMS_ITS | Encounter Summary ---
Author Organization [facility] Address [address] [place] [address] Care Team Providers Care Poured Concrete Wall Technician Name Role Phone Rebekah Greco LAWN SERVICE SUPERVISOR Primary Care Provider [phone] Encounter Details Date Type Department Care Team (Late st Contact Info) Description 08/26/2021 Lab Requisition [facility] Pathology & Laboratory Medicine - [facility] [address] [place], [place] [address] Outr Resulting Lab, Provider Social History Tobacco [...] Priority Date/Time Associated Diagnosis Comments ZZCOVID-19 TEST [facility] PCR Today 08/25/2021 16:40 EST COVID-19 TESTING Routine 08/25/2021 16:4 0 EST documented in this encounter Results * COVID-19 TEST [facility] PCR (08/25/2021 16:40 EST) Swab 08/25/2021 16:4 0 EST 08/26/2021 16:55 EST us Provider Outr Resulting Lab MICROBIOLOGY - GENER AL ORDERABLES Final Result [facility] [address] [place] [address] * COVID-19 TESTING (08/25/2021 16:40 EST) COVID-19 rt-PCR Result Negative Negative 08/27/2021 13:07 EST [facility] Comment: This test has [...] performed using the forrest SARS-CoV-2 assay ([employer] on the Forrest 6800 System Performing Lab Forrest 6800 [facility] 08/27/2021 13:07 EST [facility] Swab 08/25/2021 16:4 0 EST 08/26/2021 16:55 EST us Provider Outr Resulting Lab MICROBIOLOGY - GENER AL ORDERABLES Final Result [facility] [address] [place] [address] documented in this encounter Visit Diagnoses Not on filedocumented in this encounter Care Teams Poured Concrete Wall Technician Relationship Specialty Start Date End Date Rebekah Greco, GRACE PCP - General 12/19/17 documented as of this encounter
--- OUTSIDE RECORDS SUMMARY | 2024-12-01 10:35 | XMS_ITS | Encounter Summary ---
Author Organization [facility] Address [address] [place] [address] Care Team Providers Care Commercial Designer Name Role Phone Rebekah Greco RN CARE TRANSITION Primary Care Provider [phone] Encounter Details Date Type Department Care Team (Late st Contact Info) Description 07/26/[address] [facility] Pathology & Laboratory Medicine - [facility] [address] [place], [place] [address] Outr Resulting Lab, Provider Social History Tobacco [...] <0.3 See Note mIU/mL 07/26/2023 20:10 EDT [facility] Comment: NOTE: [...] & BLOOD GA S ORDERABLES Final Result [facility] [address] [place] [address] * PROGESTERONE (07/26/2023 7:45 EDT) Progesterone 55.7 See Table ng/mL 07/26/2023 20:22 EDT [facility] Comment: Female [...] & BLOOD GA S ORDERABLES Final Result [facility] [address] [place] [address] * ESTRADIOL, ADULTS (07/26/2023 7:45 EDT) Estradiol 564 See Note pg/mL 07/26/2023 20:00 EDT [facility] Comment: NOTE: [...] & BLOOD GA S ORDERABLES Final Result [facility] [address] [place] [address] documented in this encounter Visit Diagnoses Not on filedocumented in this encounter Care Teams Commercial Designer Relationship Specialty Start Date End Date Rebekah Greco NP PCP - General 12/19/17 documented as of this encounter
--- OUTSIDE RECORDS SUMMARY | 2024-12-01 10:35 | XMS_ITS | Encounter Summary ---
Author Organization [facility] Address [address] [place] [address] Care Team Providers Care Commercial Drafter Name Role Phone Rebekah Greco BUILDING CODE INSPECTOR Primary Care Provider [phone] Encounter Details Date Type Department Care Team (Late st Contact Info) Description 04/22/2023 Lab Requisition [facility] Pathology & Laboratory Medicine - [facility] [address] [place] [address] Franchesca King MD [facility] [place], [place] [id number] Encounter for other general examination; Other specified [...] showed a normal female karyotype. 05/17/2023 15:05 [facility] Comment The normal female cells are likely maternal in origin. Genetic counseling is recommended. 05/17/2023 15:05 [facility] Attestation By the signature below, the attending physician certifies that they have 1) personally conducted a gross and/or microscopic examination of the described specimen(s), and/or personally interpreted the results of laboratory testing of the described specimen(s), and 2) personally rendered or confirmed the above diagnosis. 05/17/2023 15:05 [facility] at 1505 Clinical History Embryonic Demise 8 weeks, 5 days 05/17/2023 15:05 [facility] Testing Performed G-banded karyotype 05/17/2023 15:05 [facility] Report Cells counted: 20 Cells analyzed: 20 Cells karyotyped: 20 Band resolution: 400 05/17/2023 15:05 [facility] Karyotype 48,XYY,+7[10]/ 46,XX[10] 05/17/2023 15:05 [facility] Scanned Images 05/17/2023 15:05 EDT [facility] Tissue PRODUCTS OF [employer] TISSUE SPECIMEN / Unknown 04/21/2023 8:30 EDT 04/22/2023 9:42 EDT us Franchesca King MD PATHOLOGY ORDERABLES Final Res ult [facility] [address] [place] [address] documented in this encounter Visit Diagnoses Diagnosis Encounter for other general examination Other specified postprocedural states Unspecified blood type, rh negative Other specified related conditions, unspecified trimester state, gestational carrier Complete or unspecified spontaneous without complication documented in this encounter Care Teams Commercial Drafter Relationship Specialty Start Date End Date Rebekah Greco NP PCP - General 12/19/17 documented as of this encounter
--- OUTSIDE RECORDS SUMMARY | 2024-12-01 10:35 | XMS_ITS | Encounter Summary ---
Author Organization [facility] Address [address] [place] [address] Care Team Providers Care Starbucks Clerk Name Role Phone Rebekah Greco CANCER GENETIC COUNSELOR Primary Care Provider [phone] Encounter Details Date Type Department Care Team (Late st Contact Info) Description 07/13/2024 Lab Requisition [facility] Pathology & Laboratory Medicine - [facility] [address] [place], [place] [address] Outr Resulting Lab, Provider Social History Tobacco [...] 47.0 See Table ng/mL 07/13/2024 18:04 EDT [facility] Comment: Female Reference Ranges: PHYSIOLOGICAL [...] GA S ORDERABLES Final Result [facility] [address] [place] [address] documented in this encounter Visit Diagnoses Not on filedocumented in this encounter Care Teams Starbucks Clerk Relationship Specialty Start Date End Date Rebekah Greco, GRACE PCP - General 12/19/17 documented as of this encounter
--- OUTSIDE RECORDS SUMMARY | 2024-12-01 10:35 | XMS_ITS | Encounter Summary ---
Author Organization [facility] Address [address] [place] [address] Care Team Providers Care Wire Stripping Machine Operator Name Role Phone Rebekah Greco FUR BUYER Primary Care Provider [phone] Encounter Details Date Type Department Care Team (Late st Contact Info) Description 01/09/2018 Orders Only [facility] Dermatology 3rd Floor [facility] [address] [place], [place] [address] Viky Kirkpatrick MD [address] [place], [place] [id number] Rash and other nonspecific skin eruption (Primary [...] Primary documented in this encounter Care Teams Wire Stripping Machine Operator Relationship Specialty Start Date End Date Rebekah Greco NP PCP - General 12/19/17 documented as of this encounter
--- OUTSIDE RECORDS SUMMARY | 2024-12-01 10:35 | XMS_ITS | Encounter Summary ---
Author Organization [facility] Address [address] [place] [address] Care Team Providers Care Clay Press Operator Name Role Phone Rebekah Greco MACHINE INKER Primary Care Provider [phone] Encounter Details Date Type Department Care Team (Late st Contact Info) Description 07/20/2024 Lab Requisition [facility] Pathology & Laboratory Medicine - [facility] [address] [place], [place] [address] Outr Resulting Lab, Provider Social History Tobacco [...] 32.4 See Table ng/mL 07/20/2024 21:58 EDT [facility] Comment: Female Reference [...] ORDERABLES Final Result Performing Organization Address [facility] Co de Phone Number [facility] [address] [place] [address] * ESTRADIOL, ADULTS (07/20/2024 7:23 EDT) [facility] Estradiol 2,166 See Note pg/mL 07/20/2024 21:57 EDT [facility] Comment: NOTE: FEMALE [...] ORDERABLES Final Result Performing Organization Address [facility] Co de Phone Number [facility] [address] [place] [address] documented in this encounter Visit Diagnoses Not on filedocumented in this encounter Care Teams Clay Press Operator Relationship Specialty Start Date End Date Rebekah Greco NP PCP - General 12/19/17 documented as of this encounter
--- OUTSIDE RECORDS SUMMARY | 2024-12-01 10:35 | XMS_ITS | Encounter Summary ---
Author Organization [facility] Address [address] [place] [address] Care Team Providers Care Manager Demand Name Role Phone Rebekah Greco DEVELOPMENT ADVISOR Primary Care Provider [phone] Encounter Details Date Type Department Care Team (Late st Contact Info) Description 07/23/2024 Lab Requisition [facility] Pathology & Laboratory Medicine - [facility] [address] [place], [place] [address] Outr Resulting Lab, Provider Social History Tobacco [...] <0.3 See Note mIU/mL 07/23/2024 18:50 EDT [facility] Comment: NOTE: Female Reference [...] & BLOOD GA S ORDERABLES Final Result [facility] [address] [place] [address] * PROGESTERONE (07/23/2024 11:31 EDT) Progesterone 45.3 See Table ng/mL 07/23/2024 18:39 EDT [facility] Comment: Female Reference Ranges: [...] & BLOOD GA S ORDERABLES Final Result [facility] [address] [place] [address] * ESTRADIOL, ADULTS (07/23/2024 11:31 EDT) Estradiol 4,125 See Note pg/mL 07/23/2024 18:41 EDT [facility] Comment: NOTE: FEMALE REFERENCE [...] S ORDERABLES Final Result Performing Organization Address City/State/[facility] Co de Phone Number [facility] [address] [place] [address] documented in this encounter Visit Diagnoses Not on filedocumented in this encounter Care Teams Manager Demand Relationship Specialty Start Date End Date Rebekah Greco NP PCP - General 12/19/17 documented as of this encounter
--- OUTSIDE RECORDS SUMMARY | 2024-12-01 10:35 | XMS_ITS | Encounter Summary ---
Author Organization [facility] Address [address] [place] [address] Care Team Providers Care Precipitation Equipment Tender Name Role Phone Rebekah Greco CHIEF DIETITIAN Primary Care Provider [phone] Encounter Details Date Type Department Care Team (Late st Contact Info) Description 06/20/2024 Lab Requisition [facility] Pathology & Laboratory Medicine - [facility] [address] [place], [place] [address] Outr Resulting Lab, Provider Social History Tobacco [...] 7.6 See Note mIU/mL 06/20/2024 18:37 EDT [facility] Comment: NOTE: Female [...] & BLOOD GA S ORDERABLES Final Result [facility] [address] [place] [address] * FSH (06/20/2024 8:40 EDT) FSH 11.8 See Note mIU/mL 06/20/2024 18:38 EDT [facility] Blood VENOUS BLOOD / Unknown 06/20/2024 8:40 EDT 06/20/2024 17:16 EDT Narrative [facility] - 06/20/2024 18:38 EDT [...] & BLOOD GA S ORDERABLES Final Result [facility] [address] [place] [address] * PROGESTERONE (06/20/2024 8:40 EDT) [facility] Progesterone 0.3 See Table ng/mL 06/20/2024 18:24 EDT [facility] Comment: Female Reference [...] S ORDERABLES Final Result Performing Organization Address City/State/[facility] Co de Phone Number [facility] [address] [place] [address] documented in this encounter Visit Diagnoses Not on filedocumented in this encounter Care Teams Precipitation Equipment Tender Relationship Specialty Start Date End Date Rebekah Greco NP PCP - General 12/19/17 documented as of this encounter
--- OUTSIDE RECORDS SUMMARY | 2024-12-01 10:35 | XMS_ITS | Encounter Summary ---
Author Organization [facility] Address [address] [place] [address] Care Team Providers Care Statistical Financial Analyst Name Role Phone Rebekah Greco SECURITY MONITOR Primary Care Provider [phone] Encounter Details Date Type Department Care Team (Late st Contact Info) Description 08/18/2021 Lab Requisition [facility] Pathology & Laboratory Medicine - [facility] [address] [place], [place] [address] Outr Resulting Lab, Provider Social History Tobacco [...] Syphilis Serology Negative Negative 08/19/2021 11:04 EDT [facility] Blood VENOUS BLOOD / Unknown 08/18/2021 7:20 EDT 08/18/2021 16:26 EDT us Provider Outr Resulting Lab IMMUNOLOGY AND SEROL OGY ORDERABLES Final Result Performing Organization Address [facility] Co de Phone Number [facility] [address] [place] [address] * VARICELLA IGG ANTIBODY (08/18/2021 7:20 EDT) Varicella IgG Ab Positive See Note 08/19/2021 10:54 EDT [facility] Comment:Presence of detectab le Varicella Zoster virus IgG antibodies. Blood VENOUS BLOOD / Unknown 08/18/2021 7:20 EDT 08/18/2021 16:26 EDT us Provider Outr Resulting Lab IMMUNOLOGY AND SEROL OGY ORDERABLES Final Result [facility] [address] [place] [address] * RUBELLA IGG ANTIBODY (08/18/2021 7:20 EDT) Rubella IgG Ab Positive See Note 08/19/2021 11:01 EDT [facility] Comment:Positive for IgG ant ibodies to Rubella virus. Blood VENOUS BLOOD / Unknown 08/18/2021 7:20 EDT 08/18/2021 16:26 EDT us Provider Outr Resulting Lab CHEMISTRY & BLOOD GA S ORDERABLES Final Result [facility] [address] [place] [address] documented in this encounter Visit Diagnoses Not on filedocumented in this encounter Care Teams Statistical Financial Analyst Relationship Specialty Start Date End Date Rebekah Greco, GRACE PCP - General 12/19/17 documented as of this encounter
--- OUTSIDE RECORDS SUMMARY | 2024-12-01 10:35 | XMS_ITS | Encounter Summary ---
Author Organization [facility] Address [address] [place] [address] Care Team Providers Care Portrait Studio Photographer Name Role Phone Rebekah Greco LIBRARIAN Primary Care Provider [phone] Encounter Details Date Type Department Care Team (Late st Contact Info) Description 06/23/[address] [facility] Pathology & Laboratory Medicine - [facility] [address] [place], [place] [address] Outr Resulting Lab, Provider Social History Tobacco [...] 4th Generation Negative Negative 06/23/2021 18:18 EDT [facility] Comment: If acute HIV-1 infection is suspected in a high risk ??patient, submit plasma specimen for HIV-1 RNA quantitation test. Fourth Generation assay performed on the Siemens Qnovoaur. Blood VENOUS BLOOD / Unknown 06/23/2021 7:09 EDT 06/23/2021 16:02 EDT us Provider Outr Resulting Lab IMMUNOLOGY AND SEROL OGY ORDERABLES Final Result Performing Organization Address City/State/[facility] Co de Phone Number [facility] [address] [place] [address] documented in this encounter Visit Diagnoses Not on filedocumented in this encounter Care Teams Portrait Studio Photographer Relationship Specialty Start Date End Date Rebekah Greco NP PCP - General 12/19/17 documented as of this encounter
--- OUTSIDE RECORDS SUMMARY | 2024-12-01 10:35 | XMS_ITS | Encounter Summary ---
Author Organization [facility] Address [address] [place] [address] Care Team Providers Care Carpenter Foreman Name Role Phone Rebekah Greco MANAGER GROCERY Primary Care Provider [phone] Encounter Details Date Type Department Care Team (Late st Contact Info) Description 04/21/2023 Lab Requisition [facility] Pathology & Laboratory Medicine - [facility] [address] [place] [address] Franchesca Nunez MD [address] [place] [phone] Complete or unspecified spontaneous without complication [...] explore management options, if applicable. 04/26/2023 9:09 [facility] Final Diagnosis A. UTERINE CONTENTS: - Products of conception, including: - fragments of immature placenta - placental implantation site - decidual endometrium 04/26/2023 9:09 [facility] Attestation There was significant resident/fellow involvement in the diagnostic evaluation of this case. By the signature below, the attending physician certifies that they have personally conducted a gross and/or microscopic examination of the described specimens and rendered or confirmed the above diagnosis. 04/26/2023 9:09 [facility] at 0909 Clinical History Miscarriage 04/26/2023 9:09 [facility] Gross Description A. Received in formalin labelled with proper patient identification (initials C, J) and products of conception is an aggregate of fragmented, romero brown tissue (5.0 x 3.5 x 0.8 cm) containing 1 piece smooth membranous tissue (2.0 x 0.4 x 0.1 cm). tissue is not identified. Manufacturing Development Engineer sections submitted as follows: BLOCK ABREU A1- sectioned smooth membranous tissue A2-A3- civil rights representative sections of fragmented, romero brown tissue FAUSTO BARGER MD 04/22/2023 11:12 04/26/2023 9:09 [facility] Resident/Iván w: Fausto Barger MD 04/26/2023 9:09 [facility] Performing Lab [facility] 04/26/2023 9:[address] [facility] Scanned Images 04/26/2023 9:[address] [facility] Tissue PRODUCTS OF CONCEPTION TISSUE SPECIMEN / Unknown 04/21/2023 8:20 EDT 04/21/2023 19:56 EDT us Franchesca Nunez MD PATHOLOGY ORDERABLES Irene yepez Result [facility] [address] [place] [address] documented in this encounter Visit Diagnoses Diagnosis Complete or unspecified spontaneous without complication documented in this encounter Care Teams Carpenter Foreman Relationship Specialty Start Date End Date Rebekah Greco NP PCP - General 12/19/17 documented as of this encounter
--- OUTSIDE RECORDS SUMMARY | 2024-12-01 10:35 | XMS_ITS | Encounter Summary ---
Author Organization [facility] Address [address] [place] [address] Care Team Providers Care Filler Feeder Name Role Phone Rebekah Greco STORE COORDINATOR Primary Care Provider [phone] Encounter Details Date Type Department Care Team (Late st Contact Info) Description 08/10/2022 Lab Requisition [facility] Pathology & Laboratory Medicine - [facility] [address] [place] [address] Malu Raymundo, SECURITY SPECIALIST [address] [place] [address] Encounter for other general examination [...] Risk types, PCR Negative Negative 08/23/2022 23:12 [facility] Comment:No E6 or E7 mRNA is detected from HPV types 16,18,31,33,35,39,45,51,52,56,58,59,66, and 68 by outbound supervisor mediated amplification. Papanicolaou smear specimen (specimen) CERVIX UTERI STRUCTURE / Unknown 08/09/2022 15:45 EDT 08/20/2022 14:12 EDT us Malu Raymundo APRN MICROBIOLOGY - GENERAL OR DERABLES Final Result [facility] [address] [place] [address] * PAP TEST (08/09/2022 15:45 EDT) Specimens A. Cervix and/or Endocervix , ThinPrep Imaging System with Manual Evaluation 08/23/2022 23:12 [facility] Specimen Adequacy Satisfactory for Evaluation - transformation zone component present 08/23/2022 23:12 [facility] General Categorization Epithelial Cell Abnormality 08/23/2022 23:12 [facility] Descriptive Diagnosis Squamous Cell Abnormality - Atypical squamous cells, undetermined significance (ASC-US). 08/23/2022 23:12 [facility] Educational Comments [facility] recommends following the ASCCP's management guidelines which may be found at www.asccp.org 08/23/2022 23:12 [facility] Attestation By the signature below, the attending physician certifies that they have personally conducted a gross and/or microscopic examination of the described specimens and rendered or confirmed the above diagnosis. 08/23/2022 23:12 [facility] at 2312 Clinical History See below 08/23/20 23:12 [facility] HPV The result for the Human Papillomavirus (HPV) Detection-High Risk Types is Negative. No E6 or E7 mRNA is detected from HPV types 16,18,31,33,35,3 9,45,51,52,56,58 ,59,66, and 68 by outbound supervisor mediated amplification.Te sting was performed on specimen [id number] and was resulted on 08/23/2022 1932 EST by ISATU, LAB INSTRUMENT RESULTS IN 08/23/2022 23:12 [facility] Performing Lab [facility] 08/23/2022 23:12 [facility] Scanned Images 08/23/2022 23:12 [facility] Papanicolaou smear specimen (specimen) CERVIX UTERI STRUCTURE / Unknown 08/09/2022 15:45 EDT 08/10/2022 11:17 EDT us Malu Raymnudo SECURITY SPECIALIST PATHOLOGY ORDERABLES Irene l Result [facility] [address] [place] [address] documented in this encounter Visit Diagnoses Diagnosis Encounter for other general examination documented in this encounter Care Teams Filler Feeder Relationship Specialty Start Date End Date Rebekah Greco NP PCP - General 12/19/17 documented as of this encounter
--- OUTSIDE RECORDS SUMMARY | 2024-12-01 10:35 | XMS_ITS | Encounter Summary ---
Author Organization [facility] Address [address] [place] [address] Care Team Providers Care Log Processor Operator Name Role Phone Rebekah Greco ROUTE SALESMAN Primary Care Provider [phone] Encounter Details Date Type Department Care Team (Late st Contact Info) Description 06/23/2021 Lab Requisition [facility] Pathology & Laboratory Medicine - [facility] [address] [place], [place] [address] Outr Resulting Lab, Provider Social History Tobacco [...] Surface Ag Negative Negative 06/23/2021 17:42 EDT [facility] Blood VENOUS BLOOD / Unknown 06/23/2021 7:09 EDT 06/23/2021 16:02 EDT us Provider Outr Resulting Lab CHEMISTRY & BLOOD GA S ORDERABLES Final Result Performing Organization Address [facility] Co de Phone Number [facility] [address] [place] [address] * HEPATITIS C AB W REFLEX TO HCV RNA BY PCR (06/23/2021 7:09 EDT) Hep C Antibody Negative Negative 06/23/2021 18:14 EDT [facility] Blood VENOUS BLOOD / Unknown 06/23/2021 7:09 EDT 06/23/2021 16:02 EDT us Provider Outr Resulting Lab CHEMISTRY & BLOOD GA S ORDERABLES Final Result Performing Organization Address City/[facility]/ZIP Co de Phone Number [facility] [address] [place] [address] documented in this encounter Visit Diagnoses Not on filedocumented in this encounter Care Teams Log Processor Operator Relationship Specialty Start Date End Date Rebekah Greco NP PCP - General 12/19/17 documented as of this encounter
--- OUTSIDE RECORDS SUMMARY | 2024-12-01 10:35 | XMS_ITS | Encounter Summary ---
Author Organization [facility] Address [address] [place] [address] Care Team Providers Care Service Inspector Name Role Phone Rebekah Greco SLEEP TECHNOLOGIST Primary Care Provider [phone] Encounter Details Date Type Department Care Team (Late st Contact Info) Description 10/01/2022 Lab Requisition [facility] Pathology & Laboratory Medicine - [facility] [address] [place], [place] [address] Outr Resulting Lab, Provider Social History Tobacco [...] Result (FLARES) Negative Negative 10/03/2022 1:38 EST [facility] FLU B RNA Result (FLBRES) Negative Negative 10/03/2022 1:38 EST [facility] RSV RNA Result (RSVRES) Negative Negative 10/03/2022 1:38 EST [facility] Swab ENTIRE NASOPHARYNX / Unknown 10/01/2022 16:45 EST 10/02/2022 22:17 EST us Provider Outr Resulting Lab MICROBIOLOGY - GENER AL ORDERABLES Final Result Performing Organization Address City/State/[facility] Co de Phone Number [facility] [address] [place] [address] documented in this encounter Visit Diagnoses Not on filedocumented in this encounter Care Teams Service Inspector Relationship Specialty Start Date End Date Rebekah Greco, GRACE PCP - General 12/19/17 documented as of this encounter
--- OUTSIDE RECORDS SUMMARY | 2024-12-01 10:35 | XMS_ITS | Encounter Summary ---
Author Organization [facility] Address [address] [place] [address] Care Team Providers Care Ferryboat Pilot Name Role Phone Rebekah Greco INSTRUCTOR OF NURSING Primary Care Provider [phone] Encounter Details Date Type Department Care Team (Late st Contact Info) Description 04/18/2024 Lab Requisition [facility] Pathology & Laboratory Medicine - [facility] [address] [place], [place] [address] Outr Resulting Lab, Provider Social History Tobacco [...] 15:28 EDT) Hold Hold 04/18/2024 22:31 EDT [facility] Blood VENOUS BLOOD / Unknown 04/18/2024 15:28 EDT 04/18/2024 21:29 EDT us Provider Outr Resulting Lab LAB INFO SERVICE AND SUPPORT & PHONE RESULT Final Result [facility] [address] [place] [address] * RHEUMATOID FACTOR (04/18/2024 15:28 EDT) [facility] Rheumatoid Factor <8.6 <12.0 IU/mL 04/18/2024 21:47 EDT [facility] Blood VENOUS BLOOD / Unknown 04/18/2024 15:28 EDT 04/18/2024 21:29 EDT us Provider Outr Resulting Lab CHEMISTRY & BLOOD GA S ORDERABLES Final Result [facility] [address] [place] [address] * (ABNORMAL) ANTI NUCLEAR AB (ROMI), IFA (04/18/2024 15:28 EDT) Pathologist [facility] ROMI Interpretation Positive(A) Negative 04/20/2024 14:06 EDT [facility] Comment: For titers greater [...] Pattern 1 1:320 Homogeneous 04/20/2024 14:06 EDT [facility] Blood VENOUS BLOOD / Unknown 04/18/2024 15:28 EDT 04/18/2024 21:29 EDT Narrative [facility] - 04/20/2024 14:06 EDT Results were obtained with the [employer] Expane HEp-2 ROMI Kit by indirect immunofluorescence. us Provider Outr Resulting Lab IMMUNOLOGY AND SEROL OGY ORDERABLES Final Result Performing Organization Address [facility] Co de Phone Number [facility] [address] [place] [phone] * CCP ANTIBODIES (04/18/2024 15:28 EDT) CCP Antibodies <2.5 <5.0 U/mL 04/19/2024 8:37 EDT [facility] Blood VENOUS BLOOD / Unknown 04/18/2024 15:28 EDT 04/18/2024 21:29 EDT us Provider Outr Resulting Lab IMMUNOLOGY AND SEROL OGY ORDERABLES Final Result Performing Organization Address City/[facility]/ZIP Co de Phone Number [facility] [address] [place] [phone] documented in this encounter Visit Diagnoses Not on filedocumented in this encounter Care Teams Ferryboat Pilot Relationship Specialty Start Date End Date Rebekah Greco NP PCP - General 12/19/17 documented as of this encounter
--- OUTSIDE RECORDS SUMMARY | 2024-12-01 10:35 | XMS_ITS | Encounter Summary ---
Author Organization [facility] Address [address] [place] [address] Care Team Providers Care Hcc Coders Name Role Phone Rebekah Greco JUNIOR GRAPHIC DESIGNER Primary Care Provider [phone] Encounter Details Date Type Department Care Team (Late st Contact Info) Description 10/01/[address] [facility] Pathology & Laboratory Medicine - [facility] [address] [place], [place] [address] Outr Resulting Lab, Provider Social History Tobacco [...] Priority Date/Time Associated Diagnosis Comments [facility] Today 10/01/2022 16:45 EST COVID-19 TESTING Routine 10/01/2022 16:4 5 EST documented in this encounter Results * COVID-19 TEST [facility] PCR (10/01/2022 16:45 EST) Swab ENTIRE NASOPHARYNX / Unknown 10/01/2022 16:45 EST 10/02/2022 22:17 EST us Provider Outr Resulting Lab MICROBIOLOGY - GENER AL ORDERABLES Final Result [facility] [address] [place] [address] * COVID-19 TESTING (10/01/2022 16:45 EST) COVID-19 rt-PCR Result Negative Negative 10/03/2022 1:42 EST [facility] Comment: This test has [...] history, and epidemiological information. Performed on the Lola Pirindola Fusion instrument Performing Lab [facility] 10/03/2022 1:42 EST [facility] Swab ENTIRE NASOPHARYNX / Unknown 10/01/2022 16:45 EST 10/02/2022 22:17 EST us Provider Outr Resulting Lab MICROBIOLOGY - GENER AL ORDERABLES Final Result [facility] [address] [place] [address] documented in this encounter Visit Diagnoses Not on filedocumented in this encounter Care Teams Hcc Coders Relationship Specialty Start Date End Date Rebekah Greco, JUNIOR GRAPHIC DESIGNER PCP - General 12/19/17 documented as of this encounter
--- OUTSIDE RECORDS SUMMARY | 2024-12-01 10:35 | XMS_ITS | Encounter Summary ---
Author Organization [facility] Address [address] [place] [address] Care Team Providers Care Radiation Control Health Physicist Name Role Phone Rebekah Greco GUEST SERVICES AGENT Primary Care Provider [phone] Encounter Details Date Type Department Care Team (Late st Contact Info) Description 07/04/2023 Lab Requisition [facility] Pathology & Laboratory Medicine - [facility] [address] [place], [place] [address] Outr Resulting Lab, Provider Social History Tobacco [...] 9.5 See Note mIU/mL 07/04/2023 17:47 EDT [facility] Comment: NOTE: Female [...] GA S ORDERABLES Final Result [facility] [address] [place] [address] * FSH (07/04/2023 7:50 EDT) FSH 15.1 See Note mIU/mL 07/04/2023 17:47 EDT [facility] Blood VENOUS BLOOD / Unknown 07/04/2023 7:50 EDT 07/04/2023 16:59 EDT Narrative [facility] - 07/04/2023 17:47 [...] GA S ORDERABLES Final Result [facility] [address] [place] [address] * PROGESTERONE (07/04/2023 7:50 EDT) [facility] Signature Progesterone 1.1 See Table ng/mL 07/04/2023 17:45 EDT [facility] [...] GA S ORDERABLES Final Result [facility] [address] [place] [address] * ESTRADIOL, ADULTS (07/04/2023 7:50 EDT) Estradiol 54 See Note pg/mL 07/04/2023 17:45 EDT [facility] [...] GA S ORDERABLES Final Result [facility] [address] [place] [address] documented in this encounter Visit Diagnoses Not on filedocumented in this encounter Care Teams Radiation Control Health Physicist Relationship Specialty Start Date End Date Rebekah Greco, GRACE PCP - General 12/19/17 documented as of this encounter
--- OUTSIDE RECORDS SUMMARY | 2024-12-01 10:35 | XMS_ITS | Encounter Summary ---
Author Organization [facility] Address [address] [place] [address] Care Team Providers Care Senior Director Of Strategy Name Role Phone Rebekah Greco SOILS ENGINEER Primary Care Provider [phone] Encounter Details Date Type Department Care Team (Late st Contact Info) Description 06/20/2024 Lab Requisition [facility] Pathology & Laboratory Medicine - [facility] [address] [place], [place] [address] Outr Resulting Lab, Provider Social History Tobacco [...] 8:40 EDT) Hold Hold 06/20/2024 18:31 EDT [facility] Blood VENOUS BLOOD / Unknown 06/20/2024 8:40 EDT 06/20/2024 17:16 EDT us Provider Outr Resulting Lab LAB INFO SERVICE AND SUPPORT & PHONE RESULT Final Result Performing Organization Address [facility]/ZIP Co de Phone Number [facility] [address] [place] [address] * HOLD SST (06/20/2024 8:40 EDT) Hold Hold 06/20/2024 18:31 EDT [facility] Blood VENOUS BLOOD / Unknown 06/20/2024 8:40 EDT 06/20/2024 17:16 EDT us Provider Outr Resulting Lab LAB INFO SERVICE AND SUPPORT & PHONE RESULT Final Result Performing Organization Address [facility]/ZIP Co de Phone Number [facility] [address] [place] [address] * ESTRADIOL, ADULTS (06/20/2024 8:40 EDT) Estradiol 48 See Note pg/mL 06/20/2024 18:08 EDT [facility] Comment: NOTE: FEMALE REFERENCE [...] & BLOOD GA S ORDERABLES Final Result [facility] [address] [place] [address] documented in this encounter Visit Diagnoses Not on filedocumented in this encounter Care Teams Senior Director Of Strategy Relationship Specialty Start Date End Date Rebekah Greco NP PCP - General 12/19/17 documented as of this encounter
--- OUTSIDE RECORDS SUMMARY | 2024-12-01 10:35 | XMS_ITS | Encounter Summary ---
Author Organization [facility] Address [address] [place] [address] Care Team Providers Care Literacy Specialist Name Role Phone Rebekah Greco GRADES 1 THRU 5 TEACHER Primary Care Provider [phone] Encounter Details Date Type Department Care Team (Late st Contact Info) Description 06/19/2021 Lab Requisition [facility] Pathology & Laboratory Medicine - [facility] [address] [place], [place] [address] Outr Resulting Lab, Provider Social History Tobacco [...] gonorrhoeae Result Negative Negative 06/22/2021 14:35 EDT [facility] Chlamydia trachomatis Result Negative Negative 06/22/2021 14:35 EDT [facility] Swab ENTIRE ENDOCERVIX / Unknown 06/19/2021 8:20 EDT 06/19/2021 17:42 EDT us Provider Outr Resulting Lab MICROBIOLOGY - GENER AL ORDERABLES Final Result [facility] [address] [place] [address] documented in this encounter Visit Diagnoses Not on filedocumented in this encounter Care Teams Literacy Specialist Relationship Specialty Start Date End Date Rebekah Greco NP PCP - General 12/19/17 documented as of this encounter
--- OUTSIDE RECORDS SUMMARY | 2024-12-01 10:35 | XMS_ITS | Encounter Summary ---
Author Organization [facility] Address [address] [place] [address] Care Team Providers Care Gluer And Wedger Name Role Phone Rebekah Greco NOODLE PRESS OPERATOR Primary Care Provider [phone] Reason for Visit * Reason Onset Date Comments Labs Only 01/11/2018 Encounter Details Date Type Department Care Team ([facility] st Contact Info) Description 01/11/2018 Telephone [facility] Dermatology 3rd Floor [facility] [address], [place] [address] Viky Kirkpatrick MD [address] [place] [address] [id number] Labs Only Social History Tobacco Use Types [...] her that I faxed the orders to [facility] and she is to go there [...] on filedocumented in this encounter Care Teams Gluer And Wedger Relationship Specialty Start Date End Date Rebekah Greco NP PCP - General 12/19/17 documented as of this encounter
--- OUTSIDE RECORDS SUMMARY | 2024-12-01 10:35 | XMS_ITS | Encounter Summary ---
Author Organization [facility] Address [address] [place] [address] Care Team Providers Care Nitrogen Operator Name Role Phone Rebekah Greco RETAIL ASSISTANT MANAGER Primary Care Provider [phone] Encounter Details Date Type Department Care Team (Late st Contact Info) Description 06/26/2024 Lab Requisition [facility] Pathology & Laboratory Medicine - [facility] [address] [place], [place] [address] Outr Resulting Lab, Provider Social History Tobacco [...] 28.5 See Note mIU/mL 06/26/2024 18:54 EDT [facility] Comment: NOTE: Female Reference [...] & BLOOD GA S ORDERABLES Final Result [facility] [address] [place] [address] * PROGESTERONE (06/26/2024 7:45 EDT) Progesterone <0.2 See Table ng/mL 06/26/2024 18:27 EDT [facility] Comment: Female Reference Ranges: [...] & BLOOD GA S ORDERABLES Final Result [facility] [address] [place] [address] * ESTRADIOL, ADULTS (06/26/2024 7:45 EDT) Estradiol 1,083 See Note pg/mL 06/26/2024 18:23 EDT [facility] Comment: NOTE: FEMALE REFERENCE [...] & BLOOD GA S ORDERABLES Final Result [facility] [address] [place] [phone] documented in this encounter Visit Diagnoses Not on filedocumented in this encounter Care Teams Nitrogen Operator Relationship Specialty Start Date End Date Rebekah Greco NP PCP - General 12/19/17 documented as of this encounter
--- OUTSIDE RECORDS SUMMARY | 2024-12-01 10:35 | XMS_ITS | Encounter Summary ---
Author Organization [facility] Address [address] [place] [address] Care Team Providers Care Chemist Enzymes Name Role Phone Rebekah Greco CHAIR MAKER Primary Care Provider [phone] Encounter Details Date Type Department Care Team (Late st Contact Info) Description 08/18/2021 Lab Requisition [facility] Pathology & Laboratory Medicine - [facility] [address] [place], [place] [address] Outr Resulting Lab, Provider Social History Tobacco [...] 4th Generation Negative Negative 08/19/2021 11:07 EDT [facility] Comment: If acute HIV-1 infection is suspected in a high risk ??patient, submit plasma specimen for HIV-1 RNA quantitation test. Fourth Generation assay performed on the Siemens Execaur. Blood VENOUS BLOOD / Unknown 08/18/2021 7:20 EDT 08/18/2021 16:26 EDT us Provider Outr Resulting Lab IMMUNOLOGY AND SEROL OGY ORDERABLES Final Result Performing Organization Address City/State/[facility] [[email or web address]] Co de Phone Number [facility] [address] [place] [address] documented in this encounter Visit Diagnoses Not on filedocumented in this encounter Care Teams Chemist Enzymes Relationship Specialty Start Date End Date Rebekah Greco NP PCP - General 12/19/17 documented as of this encounter
--- OUTSIDE RECORDS SUMMARY | 2024-12-01 10:35 | XMS_ITS | Encounter Summary ---
Author Organization [facility] Address [address] [place] [address] Care Team Providers Care Soa Engineer Name Role Phone Rebekah Greco ROTARY PLANER SET UP OPERATOR Primary Care Provider [phone] Encounter Details Date Type Department Care Team (Late st Contact Info) Description 07/09/2024 Lab Requisition [facility] Pathology & Laboratory Medicine - [facility] [address] [place], [place] [address] Outr Resulting Lab, Provider Social History Tobacco [...] 37.3 See Table ng/mL 07/09/2024 17:31 EDT [facility] Comment: Female Reference Ranges: PHYSIOLOGICAL [...] S ORDERABLES Final Result Performing Organization Address [facility] Co de Phone Number [facility] [address] [place] [address] * ESTRADIOL, ADULTS (07/09/2024 7:23 EDT) [facility] Signature Estradiol 2,377 See Note pg/mL 07/09/2024 17:30 EDT [facility] Comment: NOTE: FEMALE REFERENCE RANGES: [...] S ORDERABLES Final Result Performing Organization Address [facility] Co de Phone Number [facility] [address] [place] [address] documented in this encounter Visit Diagnoses Not on filedocumented in this encounter Care Teams Soa Engineer Relationship Specialty Start Date End Date Rebekah Greco NP PCP - General 12/19/17 documented as of this encounter
--- OUTSIDE RECORDS SUMMARY | 2024-12-01 10:35 | XMS_ITS | Encounter Summary ---
Author Organization [facility] Address [address] [place] [address] Care Team Providers Care Chemistry Faculty Member Name Role Phone Rebekah Greco HAND EXPANSION ENVELOPE MAKER Primary Care Provider [phone] Reason for Visit * Reason Onset Date Comments Labs Only 01/13/2018 Encounter Details Date Type Department Care Team ([facility] st Contact Info) Description 01/13/2018 Telephone [facility] Dermatology 3rd Floor [facility] [address] [place], [place] [address] Viky Kirkpatrick MD [address] [place] [phone] Labs Only Social History Tobacco Use Types [...] on filedocumented in this encounter Care Teams Chemistry Faculty Member Relationship Specialty Start Date End Date Rebekah Greco NP PCP - General 12/19/17 documented as of this encounter
--- OUTSIDE RECORDS SUMMARY | 2024-12-01 10:35 | XMS_ITS | Encounter Summary ---
Author Organization [facility] Address [address] [place] [address] Care Team Providers Care Hammer Runner Name Role Phone Rebekah Greco SUPERVISOR BOATBUILDERS WOOD Primary Care Provider Encounter Details Date Type Department Care Team (Late st Contact Info) Description 08/03/2024 Lab Requisition [facility] Pathology & Laboratory Medicine - [facility] [address] [place], [place] [address] Outr Resulting Lab, Provider Social History Tobacco [...] 45.5 See Table ng/mL 08/03/2024 17:55 EDT [facility] Comment: Female Reference Ranges: PHYSIOLOGICAL [...] S ORDERABLES Final Result Performing Organization Address [facility] Co de Phone Number [facility] [address] [place] [address] * ESTRADIOL, ADULTS (08/03/2024 11:45 EDT) [facility] Signature Estradiol 2,130 See Note pg/mL 08/03/2024 17:55 EDT [facility] Comment: NOTE: FEMALE REFERENCE RANGES: [...] S ORDERABLES Final Result Performing Organization Address [facility] Co de Phone Number [facility] [address] [place] [address] documented in this encounter Visit Diagnoses Not on filedocumented in this encounter Care Teams Hammer Runner Relationship Specialty Start Date End Date Rebekah Greco NP PCP - General 12/19/17 documented as of this encounter
--- OUTSIDE RECORDS SUMMARY | 2024-12-01 10:35 | XMS_ITS | Encounter Summary ---
Author Organization [facility] Address [address] [place] [address] Care Team Providers Care Electrical Foreman Name Role Phone Rebekah Greco BUTTON ATTACHING MACHINE OPERATOR Primary Care Provider [phone] Encounter Details Date Type Department Care Team (Late st Contact Info) Description 06/28/2024 Lab Requisition [facility] Pathology & Laboratory Medicine - [facility] [address] [place], [place] [address] Outr Resulting Lab, Provider Social History Tobacco [...] 12.6 See Note mIU/mL 06/28/2024 18:36 EDT [facility] Comment: NOTE: Female Reference Ranges: [...] & BLOOD GA S ORDERABLES Final Result [facility] [address] [place] [address] * PROGESTERONE (06/28/2024 7:10 EDT) Progesterone <0.2 See Table ng/mL 06/28/2024 18:30 EDT [facility] Comment: Female Reference [...] & BLOOD GA S ORDERABLES Final Result [facility] [address] [place] [address] * ESTRADIOL, ADULTS (06/28/2024 7:10 EDT) Estradiol 1,811 See Note pg/mL 06/28/2024 18:24 EDT [facility] Comment: NOTE: FEMALE [...] & BLOOD GA S ORDERABLES Final Result [facility] [address] [place] [phone] documented in this encounter Visit Diagnoses Not on filedocumented in this encounter Care Teams Electrical Foreman Relationship Specialty Start Date End Date Rebekah Greco NP PCP - General 12/19/17 documented as of this encounter
--- OUTSIDE RECORDS SUMMARY | 2024-12-01 10:35 | XMS_ITS | Encounter Summary ---
Author Organization [facility] Address [address] [place] [address] Care Team Providers Care Craft Artist Name Role Phone Rebekah Greco BATCH MIXER Primary Care Provider [phone] Encounter Details Date Type Department Care Team (Late st Contact Info) Description 01/09/2024 Lab Requisition [facility] Pathology & Laboratory Medicine - [facility] [address] [place], [place] [address] Outr Resulting Lab, Provider Social History Tobacco [...] Lyme Ab Negative Negative 01/10/2024 10:[address] [facility] Blood VENOUS BLOOD / Unknown 01/09/2024 11:39 EDT 01/09/2024 16:45 EDT us Provider Outr Resulting Lab IMMUNOLOGY AND SEROL OGY ORDERABLES Final Result Performing Organization Address City/[facility]/ZIP Co de Phone Number [facility] [address] [place] [phone] * (ABNORMAL) ANTI NUCLEAR AB (ROMI), IFA (01/09/2024 11:39 EDT) ROMI Interpretation Positive(A) Negative 01/10/2024 15:[address] [facility] Comment: For titers greater than [...] Pattern 1 1:320 Homogeneous 01/10/2024 15:[address] [facility] Blood VENOUS BLOOD / Unknown 01/09/2024 11:39 EDT 01/09/2024 16:45 EDT Narrative [facility] - 01/10/2024 15:44 EDT Results were obtained with the INOVA NOVA Lite HEp-2 ROMI Kit by indirect immunofluorescence. us Provider Outr Resulting Lab IMMUNOLOGY AND SEROL OGY ORDERABLES Final Result [facility] [address] [place] [address] documented in this encounter Visit Diagnoses Not on filedocumented in this encounter Care Teams Craft Artist Relationship Specialty Start Date End Date Rebekah Greco NP PCP - General 12/19/17 documented as of this encounter
--- OUTSIDE RECORDS SUMMARY | 2024-12-01 10:35 | XMS_ITS | Encounter Summary ---
Author Organization [facility] Address [address] [place] [address] Care Team Providers Care Laborer Wharf Name Role Phone Rebekah Greco DIRECTOR OF AUDIOLOGY Primary Care Provider [phone] Encounter Details Date Type Department Care Team (Late st Contact Info) Description 08/04/2023 Lab Requisition [facility] Pathology & Laboratory Medicine - [facility] [address] [place], [place] [address] Outr Resulting Lab, Provider Social History Tobacco [...] 22.3 See Note mIU/mL 08/04/2023 19:18 EDT [facility] Blood VENOUS BLOOD / Unknown 08/04/2023 7:31 EDT 08/04/2023 17:25 EDT Narrative [facility] - 08/04/2023 19:18 EDT [...] BLOOD GA S ORDERABLES Final Result [facility] [address] [place] [address] * PROGESTERONE (08/04/2023 7:31 EDT) Progesterone 0.7 See Table ng/mL 08/04/2023 18:07 EDT [facility] Comment: Female Reference Ranges: [...] BLOOD GA S ORDERABLES Final Result [facility] [address] [place] [address] * ESTRADIOL, ADULTS (08/04/2023 7:31 EDT) Estradiol 16 See Note pg/mL 08/04/2023 18:06 EDT [facility] Comment: NOTE: FEMALE REFERENCE [...] BLOOD GA S ORDERABLES Final Result [facility] [address] [place] [address] documented in this encounter Visit Diagnoses Not on filedocumented in this encounter Care Teams Laborer Wharf Relationship Specialty Start Date End Date Rebekah Greco NP PCP - General 12/19/17 documented as of this encounter
--- OUTSIDE RECORDS SUMMARY | 2024-12-01 10:35 | XMS_ITS | Encounter Summary ---
Author Organization [facility] Address [address] [place] [address] Care Team Providers Care Sole Buffer Name Role Phone Rebekah Greco HAT PRESSER Primary Care Provider [phone] Encounter Details Date Type Department Care Team (Late st Contact Info) Description 07/11/2020 Lab Requisition [facility] Pathology & Laboratory Medicine - [address] [address] Cadence Steele, [facility] [address] [place] [phone] Encounter for other general examination Social [...] types, PCR Negative Negative 07/18/2020 15:52 EDT [facility] Comment:No E6 or E7 mRNA is detected from HPV types 16,18,31,33,35,39,45,51,52,56,58,59,66, and 68 by regulatory affairs manager mediated amplification. Papanicolaou smear specimen (specimen) CERVIX UTERI STRUCTURE / Unknown 07/10/2020 13:00 EDT 07/16/2020 16:18 EDT us Cadence Steele WHITEPRINTING MACHINE OPERATOR MICROBIOLOGY - GENERAL ORDER KSENIA Final Result [facility] [address] [place] [address] * PAP TEST (07/10/2020 13:00 EDT) Specimens A. Cervix and/or Endocervix , ThinPrep Imaging System with Manual Evaluation 07/18/2020 15:52 EDT [facility] Specimen Adequacy Satisfactory for Evaluation - transformation zone component present 07/18/2020 15:52 EDT [facility] General Categorization Negative for intraepithelial lesion or malignancy 07/18/2020 15:52 EDT [facility] Attestation . 07/18/2020 15:52 T [facility] at 1552 Clinical History See below 07/18/20 15:52 EDT [facility] HPV The result for the Human Papillomavirus (HPV) Detection-High Risk Types is Negative. No E6 or E7 mRNA is detected from HPV types 16,18,31,33,35,39 ,45,51,52,56,58,5 9,66, and 68 by regulatory affairs manager mediated amplification.Bren ting was performed on specimen [id number] and was resulted on 07/18/2020 1523 EDT by ISATU, LAB INSTRUMENT RESULTS IN 07/18/2020 15:52 EDT [facility] Performing Lab [facility] 07/18/2020 15:52 EDT [facility] Scanned Images 07/18/2020 15:52 EDT [facility] Papanicolaou smear specimen (specimen) CERVIX UTERI STRUCTURE / Unknown 07/10/2020 13:00 EDT 07/11/2020 13:34 EDT us Cadence Steele WHITEPRINTING MACHINE OPERATOR PATHOLOGY ORDERABLES Final R esult [facility] [address] [place] [address] documented in this encounter Visit Diagnoses Diagnosis Encounter for other general examination documented in this encounter Care Teams Sole Buffer Relationship Specialty Start Date End Date Rebekah Greco NP PCP - General 12/19/17 documented as of this encounter
--- OUTSIDE RECORDS SUMMARY | 2024-12-01 10:35 | XMS_ITS | Encounter Summary ---
Author Organization [facility] Address [address] [place] [address] Care Team Providers Care Set Decorator Name Role Phone Rebekah Greco SHIPPING PACKER Primary Care Provider Encounter Details Date Type Department Care Team (Late st Contact Info) Description 08/26/2023 Lab Requisition [facility] Pathology & Laboratory Medicine - [facility] [address] [place], [place] [address] Outr Resulting Lab, Provider Social History Tobacco [...] 52.4 See Table ng/mL 08/26/2023 19:34 EST [facility] Comment: Female Reference Ranges: PHYSIOLOGICAL [...] & BLOOD GA S ORDERABLES Final Result [facility] [address] [place] [address] documented in this encounter Visit Diagnoses Not on filedocumented in this encounter Care Teams Set Decorator Relationship Specialty Start Date End Date Rebekah Greco NP PCP - General 12/19/17 documented as of this encounter
--- OUTSIDE RECORDS SUMMARY | 2024-12-01 10:35 | XMS_ITS | Encounter Summary ---
Author Organization [facility] Address [address] [place] [address] Care Team Providers Care Scrap Iron Cutter Name Role Phone Rebekah Greco HARNESSMAKER Primary Care Provider [phone] Encounter Details Date Type Department Care Team (Late st Contact Info) Description 01/12/2024 Lab Requisition [facility] Pathology & Laboratory Medicine - [facility] [address] [place], [place] [address] Outr Resulting Lab, Provider Social History Tobacco [...] (ROSS) ANTIBODY, IGG Routine 01/11/2024 16:20 EDT PC ANALYST ANTIBODY, IGG Routine 01/11/2024 16: 20 EDT documented in this encounter Results * PC ANALYST ANTIBODY, IGG (01/11/2024 16:20 EDT) PC ANALYST Antibody, IgG <6.0 <20.0 CU 11:07 EDT [facility] Comment:Results were obtaine d with the [employer] QUANTA Flash PC ANALYST chemilumenscent immunoassay. Values obtained with different manufacturers' assay methods may not be used interchangeably. Blood VENOUS BLOOD / Unknown 01/11/2024 16:20 EDT 01/12/2024 16:45 EDT us Provider Outr Resulting Lab IMMUNOLOGY AND SEROL OGY ORDERABLES Final Result Performing Organization Address [facility] Co de Phone Number [facility] [address] [place] [phone] * SM (ROSS) ANTIBODY, IGG (01/11/2024 16:20 EDT) SM (Ross) Antibody, IgG <8.0 <20.0 CU 01/13/2024 11:07 EDT [facility] Comment:Results were obtaine d with the [employer] QUANTA Flash Sm chemiluminescent immunoassay. Values obtained with different manufacturers' assay methods must not be used interchangeably. Blood VENOUS BLOOD / Unknown 01/11/2024 16:20 EDT 01/12/2024 16:45 EDT us Provider Outr Resulting Lab IMMUNOLOGY AND SEROL OGY ORDERABLES Final Result [facility] [address] [place], [place] [address] * RO60 ANTIBODY, IGG (01/11/2024 16:20 EDT) Ro60 Antibody, IgG <7.0 <20.0 CU 2023 11:07 EDT [facility] Comment:Results were obtaine d with the [employer] QUANTA Flash Ro60 chemiluminescent immunoassay. Values obtained with different manufacturers' assay methods must not be used interchangeably. Blood VENOUS BLOOD / Unknown 01/11/2024 16:20 EDT 01/12/2024 16:45 EDT us Provider Outr Resulting Lab IMMUNOLOGY AND SEROL OGY ORDERABLES Final Result Performing Organization Address [facility] de Phone Number [facility] [address] [place], [place] [address] * RO52 ANTIBODY, IGG (01/11/2024 16:20 EDT) Ro52 Anitbody, IgG <2.3 <20.0 CU 2023 11:07 EDT [facility] Comment:Results were obtaine d with the [employer] QUANTA Flash Ro52 chemiluminescent immunoassay. Values obtained with different manufacturers' assay methods must not be used interchangeably. Blood VENOUS BLOOD / Unknown 01/11/2024 16:20 EDT 01/12/2024 16:45 EDT us Provider Outr Resulting Lab IMMUNOLOGY AND SEROL OGY ORDERABLES Final Result Performing Organization Address [facility] Co de Phone Number [facility] [address] [place], [place] [phone] documented in this encounter Visit Diagnoses Not on filedocumented in this encounter Care Teams Scrap Iron Cutter Relationship Specialty Start Date End Date Rebekah Greco NP PCP - General 12/19/17 documented as of this encounter
--- OUTSIDE RECORDS SUMMARY | 2024-12-01 10:35 | XMS_ITS | Encounter Summary ---
Author Organization [facility] Address [address] [place] [address] Care Team Providers Care Product Development Consultant Name Role Phone Rebekah Greco MANAGER PROTEIN Primary Care Provider [phone] Encounter Details Date Type Department Care Team (Late st Contact Info) Description 08/19/2023 Lab Requisition [facility] Pathology & Laboratory Medicine - [facility] [address] [place], [place] [address] Outr Resulting Lab, Provider Social History Tobacco [...] 51.1 See Table ng/mL 08/19/2023 18:44 EDT [facility] Comment: Female Reference [...] S ORDERABLES Final Result Performing Organization Address [facility] Co de Phone Number [facility] [address] [place] [address] * ESTRADIOL, ADULTS (08/19/2023 7:22 EDT) Pathologist [facility] Estradiol 1,482 See Note pg/mL 08/19/2023 18:18 EDT [facility] Comment: NOTE: FEMALE [...] S ORDERABLES Final Result Performing Organization Address [facility] Co de Phone Number [facility] [address] [place] [address] documented in this encounter Visit Diagnoses Not on filedocumented in this encounter Care Teams Product Development Consultant Relationship Specialty Start Date End Date Rebekah Greco NP PCP - General 12/19/17 documented as of this encounter
--- OUTSIDE RECORDS SUMMARY | 2024-12-01 10:35 | XMS_ITS | Encounter Summary ---
Author Organization [facility] Address [address] [place] [address] Care Team Providers Care Bleacher Kraft Pulp Name Role Phone Rebekah Greco MARINA SALES AND SERVICE SUPERVISOR Primary Care Provider [phone] Encounter Details Date Type Department Care Team ([facility] st Contact Info) Description 12/24/2018 Results Only [facility]- [facility] [phone] Maria Antonia Nieves MD [address] [place] [address] [place] [address] Social History Tobacco Use Types Packs/Day Years [...] TEST (12/24/2018 12:31 EDT) Screen Test NEGATIVE [facility] 12/24/2018 12:3 1 EDT us Maria Antonia Nieves MD BLOOD BANK TESTS Final Result Performing Organization Address City/State/[facility] Co de Phone Number [facility] [address] [place] [address] documented in this encounter Visit Diagnoses Not on filedocumented in this encounter Care Teams Bleacher Kraft Pulp Relationship Specialty Start Date End Date Rebekah Greco NP PCP - General 12/19/17 documented as of this encounter
--- OUTSIDE RECORDS SUMMARY | 2024-12-01 10:35 | XMS_ITS | Encounter Summary ---
Author Organization [facility] Address [address] [place] [address] Care Team Providers Care Mining Helper Name Role Phone Rebekah Greco CHARGING CRANE OPERATOR Primary Care Provider [phone] Encounter Details Date Type Department Care Team (Late st Contact Info) Description 07/16/2024 Lab Requisition [facility] Pathology & Laboratory Medicine - [facility] [address] [place], [place] [address] Outr Resulting Lab, Provider Social History Tobacco [...] 7:22 EDT) Hold Hold 07/16/2024 18:02 EDT [facility] Blood VENOUS BLOOD / Unknown 07/16/2024 7:22 EDT 07/16/2024 16:55 EDT us Provider Outr Resulting Lab LAB INFO SERVICE AND SUPPORT & PHONE RESULT Final Result [facility] [address] [place] [address] * PROGESTERONE (07/16/2024 7:22 EDT) Progesterone 26.2 See Table ng/mL 07/16/2024 18:03 EDT [facility] Comment: Female Reference [...] S ORDERABLES Final Result Performing Organization Address [facility] de Phone Number [facility] [address] [place] [address] * ESTRADIOL, ADULTS (07/16/2024 7:22 EDT) Estradiol 2,183 See Note pg/mL 07/16/2024 18:03 EDT [facility] Comment: NOTE: FEMALE [...] S ORDERABLES Final Result Performing Organization Address [facility] de Phone Number [facility] [address] [place] [address] documented in this encounter Visit Diagnoses Not on filedocumented in this encounter Care Teams Mining Helper Relationship Specialty Start Date End Date Rebekah Greco, GRACE PCP - General 12/19/17 documented as of this encounter
--- OUTSIDE RECORDS SUMMARY | 2024-12-01 10:35 | XMS_ITS | Encounter Summary ---
Author Organization [facility] Address [address] [place] [address] Care Team Providers Care Dental Hygiene Instructor Name Role Phone Rebekah Greco DISABILITIES CAREGIVER Primary Care Provider [phone] Encounter Details Date Type Department Care Team (Late st Contact Info) Description 08/11/2023 Lab Requisition [facility] Pathology & Laboratory Medicine - [facility] [address] [place], [place] [address] Outr Resulting Lab, Provider Social History Tobacco [...] 6.9 See Note mIU/mL 08/11/2023 20:36 EDT [facility] Comment: NOTE: Female Reference [...] & BLOOD GA S ORDERABLES Final Result [facility] [address] [place] [address] * PROGESTERONE (08/11/2023 7:15 EDT) Progesterone 0.3 See Table ng/mL 08/11/2023 20:10 EDT [facility] Comment: Female Reference [...] & BLOOD GA S ORDERABLES Final Result [facility] [address] [place] [address] * ESTRADIOL, ADULTS (08/11/2023 7:15 EDT) Estradiol 1,631 See Note pg/mL 08/11/2023 20:10 EDT [facility] Comment: NOTE: FEMALE [...] & BLOOD GA S ORDERABLES Final Result [facility] [address] [place] [address] documented in this encounter Visit Diagnoses Not on filedocumented in this encounter Care Teams Dental Hygiene Instructor Relationship Specialty Start Date End Date Rebekah Greco NP PCP - General 12/19/17 documented as of this encounter
--- OUTSIDE RECORDS SUMMARY | 2024-12-01 10:35 | XMS_ITS | Encounter Summary ---
Author Organization [facility] Address [address] [place] [address] Care Team Providers Care Steel Sash Erector Name Role Phone Rebekah Greco PAINT MIXER MACHINE Primary Care Provider [phone] Encounter Details Date Type Department Care Team (Late st Contact Info) Description 07/20/2024 Lab Requisition [facility] Pathology & Laboratory Medicine - [facility] [address] [place], [place] [address] Outr Resulting Lab, Provider Social History Tobacco [...] <0.3 See Note mIU/mL 07/23/2024 9:27 EDT [facility] Comment: NOTE: Female [...] & BLOOD GA S ORDERABLES Final Result [facility] [address] [place] [address] documented in this encounter Visit Diagnoses Not on filedocumented in this encounter Care Teams Steel Sash Erector Relationship Specialty Start Date End Date Rebekah Greco NP PCP - General 12/19/17 documented as of this encounter
--- OUTSIDE RECORDS SUMMARY | 2024-12-01 10:36 | XMS_ITS | Encounter Summary ---
Author Organization [facility] Address [address] [place] [address] Care Team Providers Care Boiler Operator Name Role Phone Irais Mancilla PA-C Primary Care Provider Encounter Details Date Type Department Care Team (Late st Contact Info) Description 02/06/2009 8:40 EDT - 02/06/2009 23:59 EDT Hospital Encounter [facility] [address] [place] [address] Artur Mancera MD [address] [facility], [address] [place] [address] Social History Tobacco Use Types [...] ORDERABLE S Final Result Performing Organization Address [facility] Co de Phone Number [facility] [address] [place] [address] * CULTURE FOR STAPHYLOCOCCUS COAGULASE POSITIVE (04/15/2009 13:23 EDT) Specimen Description Nares Specimen submitted on a swab [facility] Result No Staphylococcus coagulase positive isolated [facility] Report Status Final 04/18/2009 [facility] 04/15/2009 13:2 3 EDT 04/16/2009 13:23 EDT us Desirae CLEMENTS MICROBIOLOGY - GENERAL ORDERABLE S Final Result Performing Organization Address [facility] de Phone Number [facility] [address] [place] [address] * TSH (02/06/2009 8:43 EDT) TSH 1.49 0.35 - 5.00 uIU/ml [facility] Blood specimen (specimen) 02/06/2009 8:43 EDT 02/06/2009 9:20 EDT us Artur Mancera MD CHEMISTRY & BLOOD GAS CAITIE SQUIRES Final Result Performing Organization Address [facility] Co de Phone Number [facility] [address] [place] [address] documented in this encounter Visit Diagnoses Not on filedocumented in this encounter Care Teams Boiler Operator Relationship Specialty Start Date End Date Irais Mancilla, PA-C [address] [place] [address] PCP - General 02/04/09 08/20/09 documented as of this encounter
--- OUTSIDE RECORDS SUMMARY | 2024-12-01 10:36 | XMS_ITS | Encounter Summary ---
Author Organization [facility] Address [address] [place] [address] Care Team Providers Care Ethanol Maintenance Mechanic Name Role Phone Monique Gonzalez Primary Care Provider [phone] Encounter Details Date Type Department Care Team (Late st Contact Info) Description 07/09/2014 Results Only [facility] Laboratory Services - [facility] ([facility] [address] [place], [place] [address] Michael Sanchez PA [address] [address] Social History Tobacco Use Types Packs/Day Years [...] ROBLEDOJEROME Chand Je ? Accession #: ? [id number] : ? 1985 (Age: 29) ??F ?Collect [...] Irene yepez Result [facility] [address] [place] [address] documented in this encounter Visit Diagnoses Not on filedocumented in this encounter Care Teams Ethanol Maintenance Mechanic Relationship Specialty Start Date End Date Monique Gonzalez PA [address] [place] [address] PCP - General 11/25/11 09/16/14 documented as of this encounter
--- OUTSIDE RECORDS SUMMARY | 2024-12-01 10:36 | XMS_ITS | Encounter Summary ---
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 Dr. Laguna requesting review of pt's case at [facility] on 02/25, will then see pt in clinic that day. Spoke with pt initially yesterday; questions answered, contact info provided. Discussed referral, need for TB review. Pt very tearful and anxious, frustrated with the delay of appt and answers until 03/28, as she needs to know the plan by 03/25. 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 [...] Vianey Cervantes RN GI Nurse Navigator Pager [phone] documented in this encounter Plan of Treatment Not on file documented as of this encounter Visit Diagnoses Not on filedocumented in this encounter Care Teams Upholstery Restorer Relationship Specialty Start Date End Date Tayler Gutiérrez MD [address] [place] [address] PCP - General 09/17/14 12/18/17 documented as of this encounter
--- OUTSIDE RECORDS SUMMARY | 2024-12-01 10:36 | XMS_ITS | Encounter Summary ---
Author Organization [facility] Address [address] [place] [address] Care Team Providers Care Coping Machine Operator Name Role Phone Bailey Swartz MD Primary Care Provider [phone] Encounter Details Date Type Department Care Team (Latest Contact Info) Description 06/17/2011 14:30 EDT - 06/17/2011 14:32 EDT Hospital Encounter [address] [address] Sara Rhoades PA Discharge Disposition: Home or [...] on filedocumented in this encounter Care Teams Coping Machine Operator Relationship Specialty Start Date End Date Bailey Swartz MD [address] [place] [phone] PCP - General 08/21/09 11/24/11 documented as of this encounter
--- OUTSIDE RECORDS SUMMARY | 2024-12-01 10:36 | XMS_ITS | Encounter Summary ---
Author Organization [facility] Address [address] [place] [address] Care Team Providers Care Clinical Rn Name Role Phone Monique Gonzalez Primary Care Provider [phone] Reason for Visit * Reason Onset Date Comments Other 02/13/2014 Encounter Details Date Type Department Care Team (Late st Contact Info) Description 02/13/2014 Telephone [facility] Dermatology 3rd Floor [facility] [address] [place], [place] [address] Erika Castle MD Other Social History Tobacco [...] filedocumented in this encounter Care Teams Clinical Rn Relationship Specialty Start Date End Date Monique Gonzalez PA [address] [facility] [place] [place] [address] PCP - General 11/25/11 09/16/14 documented as of this encounter
--- OUTSIDE RECORDS SUMMARY | 2024-12-01 10:36 | XMS_ITS | Encounter Summary ---
Author Organization [facility] Address [address] [place] [address] Care Team Providers Care Lifter Driver Name Role Phone Monique Gonzalez Primary Care Provider [phone] Encounter Details Date Type Department Care Team (Latest Contact Info) Description 08/06/2013 11:42 EDT - 08/06/2013 22:00 EDT Hospital Encounter [address] [address] Emmanuelle Ochoa PA [address],[facility] [address] [place] [address] Discharge Disposition: Home or Self [...] on filedocumented in this encounter Care Teams Lifter Driver Relationship Specialty Start Date End Date Monique Gonzalez PA [address] [place] [address] [place] [address] PCP - General 11/25/11 09/16/14 documented as of this encounter
--- OUTSIDE RECORDS SUMMARY | 2024-12-01 10:36 | XMS_ITS | Encounter Summary ---
Author Organization [facility] Address [address] [place] [address] Care Team Providers Care Vp Site Name Role Phone Unavailable Primary Care Provider Unavailabl e Encounter Details Date Type Department Care Team (Late st Contact Info) Description 05/24/2008 12:51 EDT Hospital Encounter [facility] - Other [address] [place] [address] Kath Vazquez, SENIOR SOFTWARE QUALITY ANALYST [address] [place] [address] Discharge Disposition: Home or Self Care Social [...] ORDERABLE S Final Result Performing Organization Address [facility]/ZIP Co de Phone Number [facility] [address] [place] [address] * CULTURE FOR STAPHYLOCOCCUS COAGULASE POSITIVE (07/10/2008 14:36 EDT) Specimen Description Nares [facility] Result No Staphylococcus coagulase positive isolated [facility] Report Status Final [id number] [facility] 07/10/2008 14:3 6 EDT 07/11/2008 14:36 EDT Desirae CLEMENTS MICROBIOLOGY - GENERAL ORDERABLE S Final Result Performing Organization Address City/[facility]/ZIP Co de Phone Number [facility] [address] [place] [address] documented in this encounter Visit Diagnoses Not on filedocumented in this encounter
--- OUTSIDE RECORDS SUMMARY | 2024-12-01 10:36 | XMS_ITS | Encounter Summary ---
Author Organization [facility] Address [address] [place] [address] Care Team Providers Care Shafting Worker Name Role Phone Unavailable Primary Care Provider Unavailabl e Encounter Details Date Type Department Care Team (Latest Contact Info) Description 04/18/2008 13:28 EDT Hospital Encounter [facility] - Other [address] [place] [address] Desirae Healy PA [address] [place] [address] Discharge Disposition: Home or Self Care Social [...] ? JEROME ROSS ? Accession #: ? [id number] ? : ? 1985 (Age: 23) ??F ?Collect Date: ? 05/24/2008 ? Location: ? [facility] ? Receive Date: ? 05/24/2008 ? Provider: ?KATH JIN MOTORIZED SQUAD SERGEANT ? Copy to: ? Specimen/Source: ?ThinPrep Pap [...] ? [facility] 05/24/2008 05/24/2008 us Kath Vazquez ARTIFICIAL FLY TIER PATHOLOGY ORDERABLES Final Resu lt [facility] [address] [place] [address] documented in this encounter Visit Diagnoses Not on filedocumented in this encounter Orders Lab Orders Without Results Count Last Ordered D ate First Ordered Date CYTOPATHOLOGY 1 05/24/2008 documented in this encounter
--- OUTSIDE RECORDS SUMMARY | 2024-12-01 10:36 | XMS_ITS | Encounter Summary ---
Author Organization [facility] Address [address] [place] [address] Care Team Providers Care Bagger Meat Name Role Phone Tayler Gutiérrez MD Primary Care Provider + Reason for Referral * (Routine) - Closed Specialty Diagnoses / Procedures Referred By Contac t Referred To Contact Diagnoses Duodenal mass Procedures SECONDARY READ BODY CT Bacilio Laguna MD Phone: tel: fax: Referral ID Status Reason Start Date Expiration Date Visits Re quested Visits Authorized [id number] Closed 03/18/2017 1 1 Encounter Details Date Type Department Care Team (Late st Contact Info) Description 03/18/2017 Orders Only [facility] Hematology & Oncology - [facility] [address] [place], [place] [address] Vianey Cervantes, RN [address] [place] [address] Duodenal mass (Primary Dx) Social [...] Symptoms/Comments: ?? K31.89-Other diseases of stomach and mlydfoee-[id number]; Routine/Other-Please Explain in the Next Question; please confirm outside interpretation - [facility] 02/21/17 ct abd pelvis Technique: CT of the abdomen and pelvis was performed following the administration intravenous contrast; coronal and sagittal multiplanar reconstructions generated. This was performed at [facility]. Request was submitted for secondary read. [...] and Symptoms/Comments: K31.89-Other diseases of stomach and riskzrpy-YJA-04; Routine/Other-Please Explain in the Next Question; please confirm outside interpretation - [facility] 02/21/17 ct abd pelvis Technique: CT of the abdomen and pelvis was performed following the administration intravenous contrast; coronal and sagittal multiplanar reconstructions generated. This was performed at [facility]. Request was submitted for secondary read. [...] duodenum documented in this encounter Care Teams Bagger Meat Relationship Specialty Start Date End Date Tayler Gutiérrez MD [address] [place] [address] PCP - General 09/17/14 12/18/17 documented as of this encounter
--- OUTSIDE RECORDS SUMMARY | 2024-12-01 10:36 | XMS_ITS | Encounter Summary ---
Author Organization [facility] Address [address] [place] [address] Care Team Providers Care Cycle Specialist Name Role Phone Tayler Gutiérrez MD Primary Care Provider + Encounter Details Date Type Department Care Team (Late st Contact Info) Description 03/15/2017 Results Only [facility]- [facility] [phone] Unknown, Provider, Social History Tobacco Use Types [...] on filedocumented in this encounter Care Teams Cycle Specialist Relationship Specialty Start Date End Date Tayler Gutiérrez MD [address] [place] [address] PCP - General 09/17/14 12/18/17 documented as of this encounter
--- OUTSIDE RECORDS SUMMARY | 2024-12-01 10:36 | XMS_ITS | Encounter Summary ---
Author Organization [facility] Address [address] [place] [address] Care Team Providers Care Immunochemist Name Role Phone Tayler Gutiérrez MD Primary Care Provider + Encounter Details Date Type Department Care Team (Late st Contact Info) Description 11/29/2016 Results Only [facility]- [facility] [phone] [place] Social History Tobacco Use Types [...] ? JEROME ROBLEDO ? Accession #: ? [id number] : ? 1985 (Age: 31) ??F ?Collect [...] Report Date: ??12/03/2016 16:26 End of Report [facility] 11/29/2016 11/30/2016 us [place] PATHOLOGY ORDERABLES Final Resu lt [facility] [address] [place] [address] documented in this encounter Visit Diagnoses Not on filedocumented in this encounter Care Teams Immunochemist Relationship Specialty Start Date End Date Tayler Gutiérrez MD [address] [place] [address] PCP - General 09/17/14 12/18/17 documented as of this encounter
--- OUTSIDE RECORDS SUMMARY | 2024-12-01 10:36 | XMS_ITS | Encounter Summary ---
Author Organization [facility] Address [address] [place] [address] Care Team Providers Care Starch Treating Assistant Name Role Phone Bailey Swartz MD Primary Care Provider [phone] Encounter Details Date Type Department Care Team (Late st Contact Info) Description 06/17/2011 Results Only [facility] Laboratory Services - [facility] ([address] [phone] Cousins, STARR Manley Social History Tobacco Use [...] ? JEROME ROSS ? Accession #: ? [id number] ? : ? 1985 (Age: 26) ??F ?Collect Date: ? 06/17/2011 ? Location: ? [facility] ? Receive Date: ? 06/18/2011 ? Provider: ?LELO CLEMENTS ? Copy to: ?EMMA BONDESEN PA ? [...] ORDERABLES Final R esult Performing Organization Address [facility]/State/ZIP Co de Phone Number [facility] [address] [place] [address] documented in this encounter Visit Diagnoses Not on filedocumented in this encounter Care Teams Starch Treating Assistant Relationship Specialty Start Date End Date Bailey Swartz MD [address] [facility],[address] [phone] PCP - General 08/21/09 11/24/11 documented as of this encounter
--- OUTSIDE RECORDS SUMMARY | 2024-12-01 10:36 | XMS_ITS | Encounter Summary ---
Author Organization [facility] Address [address] [place] [address] Care Team Providers Care Stamping Press Operator Name Role Phone Tayler Gutiérrez MD Primary Care Provider + Encounter Details Date Type Department Care Team (Late st Contact Info) Description 03/03/2017 Results Only [facility]- [facility] [phone] Waqar Frost MD [address] [place] [address] Social History Tobacco Use Types Packs/Day Years [...] N, PARAFFIN, LC MS/MS 03/23/2017 15:30 EDT [facility] Result See Pathology Scanned Report in PRISM. 04/06/2017 19:02 EDT [facility] Ref Range See Pathology Scanned Report in PRISM. 04/06/2017 19:02 EDT [facility] Ref Lab Test performed by: 04/06/2017 19:02 EDT [facility] Comment: [place], [place] TOPOGRAPHY UNKNOWN / Unknown 03/03/2017 15:28 EDT 03/23/2017 15:28 EDT Waqar Frost MD CHEMISTRY & BLOOD GAS ORDERABLE S Final Result [facility] [address] [place] [address] * SURGICAL PATHOLOGY (03/03/2017 12:27 EDT) Pathology Report: SURGICAL PATHOLOGY REPORT Reports generated via electronic interface contain original data; however they are lacking the format of the original report. Caution should be taken when reading/interpreting unformatted reports. Name: ? JEROME ROBLEDO ? Accession #: ? [id number] ? : ? 1985 (Age: 31) ??F ?Collect Date: ? 03/03/2017 ? Location: ? [facility] ? Receive Date: ? 03/03/2017 ? Provider: WAQAR FROST MD Copy to: MODE LIANG MD MICHELE ZARAGOZA CLOTH SHRINKING MACHINE OPERATOR ? Addendum ? Date Ordered: ? 03/21/2017 [...] above diagnosis. Final Pathologic Diagnosis: OUTSIDE SLIDES [facility] [id number] (4), PROCEDURE DATE 02/28/2017 A. duodenal wall, [...] are highlighted by S-100 protein DAB (4C4.9, [place]) (A) but not the remainder of the [...] Scientific), CD43 (DF-T1, [place]), BCL-2 Oncoprotein (124, [place]) (B1): negative for aberrant co-expression. Cyclin D1 (SP4-R, [place]) (B1): Negative NOTE: ??One or more of [...] performance characteristics have been determined by [facility]. ??The positive and negative controls worked [...] Four slides are received for review from [facility], one each labelled [id number] A, [id number] A D1-3, [id number] A S1-3, [id number] B. One block is also received for review labelled [id number] A. ??Also received for review on 03/04/2017 is one block, labelled [id number] B. ? SEND OUT TEST SUMMARY REPORT ? Date Ordered: ? 03/23/2017 ? Status: ?? Signed Out ?Date Complete: ? 04/06/2017 ? By: ??Luanne Castillo ? Date Reported: ? 04/06/2017 ? Interpretation Comment As indicated in the signed out report, the finding of amyloid like material involving the vasculature was further confirmed by tissue analysis. A tissue block was submitted to [facility]; a repeat congo red was performed which was also positive. ??The liquid chromatography tandem mass spectrometry (LC MS/MS) was performed on the peptide extracted from the [place] red positive dissected areas. LC MS/MS detected a peptide profile that includes proteins deposited with amyloid of all types. ??This finding supports a diagnosis of amyloidosis. [facility] could not determine the specific type of amyloid by this analysis. ??Clinical correlation and repeat analysis on another amyloid involved site is recommended. ?? (Dr. Mathur)/ljyesenia Description Received: ??Duodenal wall mass Pathology report: ??Congophilic vascular material Gross description: ??A paraffin embedded tissue block labelled [id number] ([facility] [id number], A) has been submitted to [facility] for Amyloid Protein Identification, Paraffin, LC-MS/MS testing, requested by Dr. Mathur the sign out pathologist. ?? Document reviewed and electronically signed by: ? KATYA MATHUR MD ? Report date: 04/06/2017 By the signature above, the attending physician certifies that he/she has personally conducted a gross and/or microscopic examination of the described specimens and rendered or confirmed the above diagnosis. End of Report [facility] 03/03/2017 12:2 7 EDT 03/03/2017 12:27 EDT Waqar Frost MD PATHOLOGY ORDERABLES Final Resu lt [facility] [address] [place] [address] documented in this encounter Visit Diagnoses Not on filedocumented in this encounter Care Teams Stamping Press Operator Relationship Specialty Start Date End Date Tayler Gutiérrez MD [address] [place] [address] PCP - General 09/17/14 12/18/17 documented as of this encounter
--- OUTSIDE RECORDS SUMMARY | 2024-12-01 10:36 | XMS_ITS | Encounter Summary ---
Author Organization [facility] Address [address] [place] [address] Care Team Providers Care Vibration Engineer Name Role Phone Monique Gonzalez Primary Care Provider [phone] Encounter Details Date Type Department Care Team (Late st Contact Info) Description 09/18/2013 Results Only [facility] [phone] Emmanuelle Ochoa PA [address],[facility] [address] [place] [address] Social History Tobacco Use Types [...] PF4 ORDERABLES Final Result Performing Organization Address City/[facility] Co de Phone Number [facility] [address] [place] [address] * HEMAGRAM (09/18/2013 15:30 EST) WBC 9.55 [...] PF4 ORDERABLES Final Result Performing Organization Address City/[facility]/ZIP Co de Phone Number [facility] [address] [place] [address] documented in this encounter Visit Diagnoses Not on filedocumented in this encounter Care Teams Vibration Engineer Relationship Specialty Start Date End Date Monique Gonzalez PA [address] [place] [address] PCP - General 11/25/11 09/16/14 documented as of this encounter
--- OUTSIDE RECORDS SUMMARY | 2024-12-01 10:36 | XMS_ITS | Encounter Summary ---
Author Organization [facility] Address [address] [place] [address] Care Team Providers Care Piece Marker Small Arms Name Role Phone Tayler Gutiérrez MD Primary Care Provider + Reason for Visit * Reason Onset Date Comments Appointment Related 09/30/2014 Encounter Details Date Type Department Care Team ([facility] Contact Info) Description 09/30/2014 Telephone [facility] Sports Medicine Program - [address] [place], [place] [phone] Brendan Kraft Appointment Related Social History Tobacco [...] for her MRI (10/19@3:45 pm check in [facility]) and follow up with Dr. Hand (10/23@9:00 am). documented in this encounter Plan of Treatment Not on file documented as of this encounter Visit Diagnoses Not on filedocumented in this encounter Care Teams Piece Marker Small Arms Relationship Specialty Start Date End Date Tayler Gutiérrez MD [address] [place] [address] PCP - General 09/17/14 12/18/17 documented as of this encounter
--- OUTSIDE RECORDS SUMMARY | 2024-12-01 10:36 | XMS_ITS | Encounter Summary ---
Author Organization [facility] Address [address] [place] [address] Care Team Providers Care Lining Folder Name Role Phone Tayler Gutiérrez MD Primary Care Provider + Reason for Visit * Reason Comments Knee Pain right Encounter Details Date Type Department Care Team (Late st Contact Info) Description 09/17/2014 10:00 EST Office Visit [facility] Sports Medicine Program - [address] [place], [place] [phone] Brendan Kraft Right anterior knee pain (Primary [...] 01/01/2016 added in this encounter Care Teams Lining Folder Relationship Specialty Start Date End Date Tayler Gutiérrez MD [address] [place] [address] PCP - General 09/17/14 12/18/17 documented as of this encounter
--- OUTSIDE RECORDS SUMMARY | 2024-12-01 10:36 | XMS_ITS | Encounter Summary ---
Author Organization [facility] Address [address] [place] [address] Care Team Providers Care Rice Farmer Name Role Phone Monique Gonzalez Primary Care Provider [phone] Encounter Details Date Type Department Care Team (Latest Contact Info) Description 09/18/2013 12:21 EST - 09/18/2013 12:25 [facility] Encounter [address] [address] Emmanuelle Ochoa PA [address],[facility] [address] [place] [address] Discharge Disposition: Home or Self [...] on filedocumented in this encounter Care Teams Rice Farmer Relationship Specialty Start Date End Date Monique Gonzalez PA [address] [place] [address] PCP - General 11/25/11 09/16/14 documented as of this encounter
--- OUTSIDE RECORDS SUMMARY | 2024-12-01 10:36 | XMS_ITS | Encounter Summary ---
Author Organization [facility] Address [address] [place] [address] Care Team Providers Care Stem Frazer Name Role Phone Tayler Gutiérrez MD Primary Care Provider + Reason for Visit * Reason Comments Headache Dizziness New Patient Visit Patient is being see n at the request of Vinicio Gutiérrez for above symptoms and positive ROMI. Encounter Details Date Type Department Care Team (Late st Contact Info) Description 01/01/2016 10:20 EDT Office Visit [facility] Rheumatology & Immunology - [address] [phone] Kumar Hester Chi, MD [address] [place] [address], [address] [place] [address] Positive ROMI (antinuclear antibody) (Primary [...] workup was negative for seizure or any EVENTS ADMINISTRATIVE ASSISTANT pathology. Presyncopal symptoms include lightheadedness, feeling warm [...] ANTIBODIES BY DONY SM ANTIBODIES BY DONY CONE PICKER ANTIBODIES BY DONY THYROID ANTIBODIES 2. Gluten [...] <15 <61 U/mL 01/01/20 16 13:09 EDT [facility] Thyroperoxidase Ab <28 <61 U/mL 2015 14:46 EDT [facility] Blood specimen (specimen) BLOOD SPECIMEN / Unknown 01/01/2016 11:32 EDT 01/01/2016 11:59 EDT us Kumar Hester MD CHEMISTRY & BLOOD GAS ORDERABLES Final Result [facility] [address] [place] [address] * TISSUE TRANSGLUTAMINASE AB (01/01/2016 11:32 EDT) Tissue Transglut Ab <1.2 <4 U/mL 01/02/2016 14:08 EDT [facility] Comment: The following results were obtained with the CallGraderVA QUANTA Lite R h-tTG IgA DONY assay on the ClearContext DSX. A negative result may be due to IgA deficiency and does not rule out celiac disease. Blood specimen (specimen) BLOOD SPECIMEN / Unknown 01/01/2016 11:32 EDT 01/01/2016 11:59 EDT us Kumar Hester MD IMMUNOLOGY AND SEROLOGY ORDERABL ES Final Result Performing Organization Address [facility] de Phone Number [facility] [address] [place] [address] * CONE PICKER ANTIBODIES BY DONY (01/01/2016 11:32 EDT) CONE PICKER Antibody 2.4 <20 Units 01/05/2016 17:03 EDT [facility] Comment: Negative: <20 Units Weak Positive: 20 - 29 Units Moderate Positive: 40 - 80 Units Strong Positive: >80 Units The following results were obtained with the CallGraderVA QUANTA Lite CONE PICKER DONY. CONE PICKER values obtained with different manufacturers' assay methods may not be used interchangeably. The magnitude of the reported IgG levels cannot be correlated to an endpoint titer. A positive result in the QUANTA Lite CONE PICKER DONY indicates the presence of antibodies reactive with the CONE PICKER/Sm complex but cannot distinguish between anti-Sm and anti-CONE PICKER activity. Blood specimen (specimen) BLOOD SPECIMEN / Unknown 01/01/2016 11:32 EDT 01/01/2016 11:59 EDT us Kumar Hester MD IMMUNOLOGY AND SEROLOGY ORDERABL ES Final Result Performing Organization Address [facility] Co de Phone Number [facility] [address] [place] [address] * SM ANTIBODIES BY DONY (01/01/2016 11:32 EDT) Sm (Ross) Antibody 3.0 <20 Units 01/05/2016 17:03 EDT [facility] Comment: Negative: <20 Units Weak [...] ORDERABL ES Final Result Performing Organization Address [facility] Number [facility] [address] [place] [address] * SSA ANTIBODIES BY DONY (01/01/2016 11:32 EDT) SSA Antibody 2.0 <20 Units 01/05/2016 14:58 EDT [facility] Comment: Negative: <20 Units Weak [...] Result Performing Organization Address [facility] de Phone Number [facility] [address] [place] [address] * SSB ANTIBODIES BY DONY (01/01/2016 11:32 EDT) SSB Antibody 1.5 <20 Units 01/05/2016 14:58 EDT [facility] Comment: Negative: <20 Units Weak [...] ORDERABL ES Final Result Performing Organization Address [facility] de Phone Number [facility] [address] [place] [address] * (ABNORMAL) C4 COMPLEMENT (01/01/2016 11:32 EDT) C4 Complement 14(L) 16 - 38 mg/dl 01/01/2016 15:03 EDT [facility] Blood specimen (specimen) BLOOD SPECIMEN / Unknown 01/01/2016 11:32 EDT 01/01/2016 11:59 EDT Result Elvia Hester MD CHEMISTRY & BLOOD GAS ORDERABLES Final Result Performing Organization Address [facility] Number [facility] [address] [place] [address] * ANTI DNA (DOUBLE STRAND) (01/01/2016 11:32 EDT) Pathologist [facility] Anti DNA (DS) <12.3 <30 IU/mL 01/06/2016 12:35 EDT [facility] Comment: The following results were obtained with the INOVA QUANTA Lite dsDNA SC Dony assay on the ClearContext DSX. Blood specimen (specimen) BLOOD SPECIMEN / Unknown 01/01/2016 11:32 EDT 01/01/2016 11:59 EDT Result Elvia Hester MD IMMUNOLOGY AND SEROLOGY ORDERABL ES Final Result Performing Organization Address [facility] de Phone Number [facility] [address] [place] [address] * URINALYSIS WITH REFLEX MICROSCOPIC (01/01/2016 11:31 EDT) Color, UA Yellow 01/01/2016 12:03 T [facility] Clarity, UA Hazy 01/01/2016 12:03 [facility] Glucose, UA Neg Neg 01/01/2016 12:03 T [facility] Bilirubin, UA Neg Neg 01/01/2016 12:03 T [facility] Ketones, UA Neg Neg 01/01/2016 12:03 [facility] Specific [place], Urine 1.010 1.001 - 1.035 01/01/2016 12:03 [facility] Blood, UA Neg Neg 01/01/2016 12:03 [facility] pH, UA 6.0 4.6 - 8.0 01/01/2016 12:03 [facility] Protein, UA Neg Neg 01/01/2016 12:03 [facility] Urobilinogen, UA 0.2 0.2 - 1.0 E.U./dl 01/01/2016 12:03 [facility] Nitrite, UA Neg Neg 01/01/2016 12:03 [facility] Leuk Esterase Neg Neg 01/01/2016 12:03 [facility] Urine specimen (specimen) URINE / Unknown 01/01/2016 11:31 EDT 01/01/2016 11:50 EDT us Kumar Hester MD URINALYSIS ORDERABLES Final Resu lt [facility] [address] [place] [address] documented in this encounter Visit Diagnoses Diagnosis [...] mouth. added in this encounter Care Teams Stem Frazer Relationship Specialty Start Date End Date Tayler Gutiérrez MD [address] [place] [address] PCP - General 09/17/14 12/18/17 documented as of this encounter
--- OUTSIDE RECORDS SUMMARY | 2024-12-01 10:36 | XMS_ITS | Encounter Summary ---
Author Organization [facility] Address [address] [place] [address] Care Team Providers Care Barley Steeper Name Role Phone Rebekah Greco DIRECTOR OF VENDOR MANAGEMENT Primary Care Provider [phone] Reason for Visit * Reason Comments New Patient Visit body rash x4 days farheen t has has this a few years again * Consult (3 - 10 Business Days) - Closed Specialty Diagnoses / Procedures Referred By Isra gage Referred To Contact Dermatology Diagnoses Rash and other nonspecific skin eruption Rebekah Greco, DIRECTOR OF VENDOR MANAGEMENT Phone: tel: fax: [facility] Dermatology [address] [address] Phone: tel: fax: Referral ID Status Reason Start Date Expiration Date Visits Re quested Visits Authorized [id number] Closed 1 1 Encounter Details Date Type Department Care Team (Late st Contact Info) Description 12/20/2017 16:00 EST Office Visit [facility] Dermatology 3rd Floor [address] [address] Jyoti Edmondson MD [address] [place] [phone] Rash (Primary Dx) Discharge Disposition: Auto Discharge [...] track down labs that Jerome had at [facility] recently? I will be adding [...] is being worked up by GI at [facility]. She has not tried anything other than [...] PATIENT : Jerome Robledo : MRN: [id number] SURGEON: MD Jyoti Roldan MD The indication, [...] ? JEROME ROBLEDO ? Accession #: ? [id number] ? : ? 1985 (Age: 32) ??F [...] performance characteristics have been determined by the [facility]. ??The positive and negative controls worked [...] above diagnosis. End of Report [facility] 12/20/2017 19:1 1 EST 12/20/2017 19:11 EST us Jyoti Edmondson MD PATHOLOGY ORDERABLES Final Re sult [facility] [address] [place] [address] documented in this encounter Visit Diagnoses Diagnosis Rash- Primary Rash and other nonspecific skin eruption documented in this encounter Care Teams Barley Steeper Relationship Specialty Start Date End Date Rebekah Greco NP PCP - General 12/19/17 documented as of this encounter
--- OUTSIDE RECORDS SUMMARY | 2024-12-01 10:36 | XMS_ITS | Encounter Summary ---
Author Organization [facility] Address [address] [place] [address] Care Team Providers Care Industrial Services Worker Name Role Phone Monique Gonzalez Primary Care Provider [phone] Encounter Details Date Type Department Care Team (Late st Contact Info) Description 12/29/[address] [facility] Foot & Ankle Program - [address] [phone] Willard Lo DPM [address] [place] [address] Social History Tobacco Use Types [...] on filedocumented in this encounter Care Teams Industrial Services Worker Relationship Specialty Start Date End Date Monique Gonzalez PA [address] [place] [address] PCP - General 11/25/11 09/16/14 documented as of this encounter
--- OUTSIDE RECORDS SUMMARY | 2024-12-01 10:36 | XMS_ITS | Encounter Summary ---
Author Organization [facility] Address [address] [place] [address] Care Team Providers Care Product Lister Name Role Phone Tayler Gutiérrez MD Primary Care Provider + Encounter Details Date Type Department Care Team (Latest Contact Info) Description 02/02/2017 7:58 EDT - 02/02/2017 23:59 EDT Hospital Encounter [facility] [address] [place] [address] Ankita Stout, LEATHER STAKER [address] [place] [phone] Discharge Disposition: Auto Discharge Social History Tobacco [...] filedocumented in this encounter Care Teams Product Lister Relationship Specialty Start Date End Date Tayler Gutiérrez MD [address] [place] [address] PCP - General 09/17/14 12/18/17 documented as of this encounter
--- OUTSIDE RECORDS SUMMARY | 2024-12-01 10:36 | XMS_ITS | Encounter Summary ---
Author Organization [facility] Address [address] [place] [address] Care Team Providers Care Occ Med Physician Name Role Phone Bailey Swartz MD Primary Care Provider [phone] Encounter Details Date Type Department Care Team (Late st Contact Info) Description 05/27/2010 Results Only [facility] Laboratory Services - [facility] ([facility]) [address] [place], [place] [phone] Kath Vazquez, HOG RIBBER [address] [place] [address] Social History Tobacco Use Types [...] ? JEROME ROSS ? Accession #: ? [id number] ? : ? 1985 (Age: 25) ??F ?Collect Date: ? 05/27/2010 ? Location: ? [facility] ? Receive Date: ? 05/27/2010 ? Provider: ?KATH JIN HOTEL BAGGAGE HANDLER ? Copy to: ? Specimen/Source: ?Pap Test, [...] [facility] 05/27/2010 05/27/2010 us Kath Vazquez HOG RIBBER PATHOLOGY ORDERABLES Final Resu lt [facility] [address] [place] [address] documented in this encounter Visit Diagnoses Not on filedocumented in this encounter Care Teams Occ Med Physician Relationship Specialty Start Date End Date Sheridan, Bailey C, MD [address] [place] [phone] PCP - General 08/21/09 2 documented as of this encounter
--- OUTSIDE RECORDS SUMMARY | 2024-12-01 10:36 | XMS_ITS | Encounter Summary ---
Author Organization [facility] Address [address] [place] [address] Care Team Providers Care Leasing Director Name Role Phone Monique Gonzalez Primary Care Provider [phone] Encounter Details Date Type Department Care Team (Late st Contact Info) Description 02/02/2013 Results Only [facility] [phone] Dean Stewart DPM [address] [place] [address] Social History Tobacco Use Types Packs/Day Years [...] on filedocumented in this encounter Care Teams Leasing Director Relationship Specialty Start Date End Date Monique Gonzalez PA [address] [place] [address] PCP - General 11/25/11 09/16/14 documented as of this encounter
--- OUTSIDE RECORDS SUMMARY | 2024-12-01 10:36 | XMS_ITS | Encounter Summary ---
Author Organization [facility] Address [address] [place] [address] Care Team Providers Care Wrapper Sheeter Name Role Phone Bailey Swartz MD Primary Care Provider [phone] Irais Mancilla PA-C Primary Care Provider Encounter Details Date Type Department Care Team (Late st Contact Info) Description 02/19/[address] [facility] - Map conversion [address] [place] [address] Desirae Healy PA [address] [place], [place] [phone] Social History Tobacco Use Types Packs/Day Years [...] isolated [facility] Report Status Final [id number] [facility] 02/19/2008 15:3 0 EDT 02/20/2008 14:40 EDT us Desirae CLEMENTS MICROBIOLOGY - GENERAL ORDERABLE S Final Result [facility] [address] [place] [address] documented in this encounter Visit Diagnoses Not on filedocumented in this encounter Care Teams Wrapper Sheeter Relationship Specialty Start Date End Date Bailey Swartz MD [address] [place] [phone] PCP - General 08/21/09 11/24/11 Irais Mancilla PA-C [address] [place] [address] PCP - General 02/04/09 08/20/09 documented as of this encounter
--- OUTSIDE RECORDS SUMMARY | 2024-12-01 10:36 | XMS_ITS | Encounter Summary ---
Author Organization [facility] Address [address] [place] [address] Care Team Providers Care Accounts Payable Representative Name Role Phone Tayler Gutiérrez MD Primary Care Provider + Encounter Details Date Type Department Care Team (Late st Contact Info) Description 02/02/2017 Results Only Imaging [facility] [phone] Ankita Stout, AERODYNAMIC CONSULTANT [address] [place] [phone] Social History Tobacco Use Types Packs/Day Years [...] agree with the findings. us Ankita Stout AERODYNAMIC CONSULTANT IM NM ORDERABLES Final Result documented in this encounter Visit Diagnoses Not on filedocumented in this encounter Care Teams Accounts Payable Representative Relationship Specialty Start Date End Date Tayler Gutiérrez MD [address] [place] [address] PCP - General 09/17/14 12/18/17 documented as of this encounter
--- OUTSIDE RECORDS SUMMARY | 2024-12-01 10:36 | XMS_ITS | Encounter Summary ---
Author Organization [facility] Address [address] [place] [address] Care Team Providers Care Solar Energy System Installer Name Role Phone Monique Gonzalez Primary Care Provider [phone] Reason for Visit * Reason Comments Foot Pain Encounter Details Date Type Department Care Team (Late st Contact Info) Description 12/23/2011 9:00 EST Office Visit [facility] - [address] [address] Sean Linn MD [address] [place] [address] Plantar fascial fibromatosis (Primary Dx) [...] 01/01/2016 added in this encounter Care Teams Solar Energy System Installer Relationship Specialty Start Date End Date Monique Gonzalez PA [address] [facility] [place] [address] PCP - General 11/25/11 09/16/14 documented as of this encounter
--- OUTSIDE RECORDS SUMMARY | 2024-12-01 10:36 | XMS_ITS | Encounter Summary ---
Author Organization [facility] Address [address] [place] [address] Care Team Providers Care Early Childhood Education Specialist Name Role Phone Tayler Gutiérrez MD Primary Care Provider + Encounter Details Date Type Department Care Team (Late st Contact Info) Description 10/13/2017 Results Only [facility] [phone] Alan Steele, [address] [phone] Social History Tobacco Use Types Packs/Day Years [...] ? JEROME ROBLEDO ? Accession #: ? [id number] ? : ? 1985 (Age: 32) ??F ?Collect Date: ? 10/13/2017 ? Location: ? [facility] ? Receive Date: ? 10/14/2017 ? Provider: ALAN STEELE CUSTOMS PORT DIRECTOR Copy to: RIN SANZ CUSTOMS PORT DIRECTOR ? Final Report SPECIMEN ADEQUACY ? Satisfactory for Evaluation - transformation zone component present GENERAL CATEGORIZATION ? Epithelial Cell Abnormality INTERPRETATION ? Squamous Cell Abnormality - Atypical squamous cells, undetermined significance (ASC-US). EDUCATIONAL NOTES/RECOMMENDAT IONS ? [facility] recommends following ASCCP's 2012 Updated [...] types 16,18,31,33,35, 39,45,51,52,56,58 ,59,66, and 68 by route aide mediated amplification. Comments Document reviewed and electronically signed by: ? System Interface ? Report date: 10/27/2017 By the signature above, the attending physician certifies that he/she has personally conducted a gross and/or microscopic examination of the described specimens and rendered or confirmed the above diagnosis. End of Report [facility] 10/13/2017 10/14/2017 us Alan Steele CUSTOMS PORT DIRECTOR PATHOLOGY ORDERABLES Final R esult Performing Organization Address City/State/[facility] Co de Phone Number [facility] [address] [place] [address] documented in this encounter Visit Diagnoses Not on filedocumented in this encounter Care Teams Early Childhood Education Specialist Relationship Specialty Start Date End Date Tayler Gutiérrez MD [address] [place] [address] PCP - General 09/17/14 12/18/17 documented as of this encounter
--- OUTSIDE RECORDS SUMMARY | 2024-12-01 10:36 | XMS_ITS | Encounter Summary ---
Author Organization [facility] Address [address] [place] [address] Care Team Providers Care Advertising Solicitor Name Role Phone Tayler Gutiérrez MD Primary Care Provider + Encounter Details Date Type Department Care Team (Latest Contact Info) Description 10/13/2017 16:35 EST - 10/13/2017 23:59 EST Hospital Encounter [address] [address] Unknown, Provider, Discharge Disposition: Home or Self [...] Code Departure Means Destination Home or Self Snf documented in this encounter Plan of Treatment Not on file documented as of this encounter Visit Diagnoses Not on filedocumented in this encounter Care Teams Advertising Solicitor Relationship Specialty Start Date End Date Tayler Gutiérrez MD [address] [place] [address] PCP - General 09/17/14 12/18/17 documented as of this encounter
--- OUTSIDE RECORDS SUMMARY | 2024-12-01 10:36 | XMS_ITS | Encounter Summary ---
Author Organization [facility] Address [address] [place] [address] Care Team Providers Care Rn Dermatology Name Role Phone Tayler Gutiérrez MD Primary Care Provider + Encounter Details Date Type Department Care Team (Late st Contact Info) Description 01/01/2016 Results Only [facility] Rheumatology & Immunology - [address] [phone] Kumar Hester Chi, MD [address] [place] [address], [address] [place] [address] Social History Tobacco Use Types [...] Billing Microscopic not indicated. 01/01/2016 12:03 EDT [facility] URINE / Unknown 01/01/2016 1 1:31 EDT 01/01/2016 11:50 EDT us DeisyKumar Hester MD URINALYSIS ORDERABLES Final Resu lt [facility] [address] [place] [address] documented in this encounter Visit Diagnoses Not on filedocumented in this encounter Care Teams Rn Dermatology Relationship Specialty Start Date End Date Tayler Gutiérrez MD [address] [place] [address] PCP - General 09/17/14 12/18/17 documented as of this encounter
--- OUTSIDE RECORDS SUMMARY | 2024-12-01 10:36 | XMS_ITS | Encounter Summary ---
Author Organization [facility] Address [address] [place] [address] Care Team Providers Care Ash Worker Name Role Phone Tayler Gutiérrez MD Primary Care Provider + Encounter Details Date Type Department Care Team (Late st Contact Info) Description 03/03/2017 14:37 EDT - 03/03/2017 23:59 EDT Hospital Encounter [address] [address] Waqar Frost MD [address] [place] [address] Discharge Disposition: Home or Self Care Social [...] 04/06/2017 15:3 5 EDT us Scan 2 Supervisor Crack Off LAB INFO SERVICE AND SUPPOR T & PHONE RESULT Final Result documented in this encounter Visit Diagnoses Not on filedocumented in this encounter Care Teams Ash Worker Relationship Specialty Start Date End Date Tayler Gutiérrez MD [address] [place] [address] PCP - General 09/17/14 12/18/17 documented as of this encounter
--- OUTSIDE RECORDS SUMMARY | 2024-12-01 10:36 | XMS_ITS | Encounter Summary ---
Author Organization [facility] Address [address] [place] [address] Care Team Providers Care Television News Photographer Name Role Phone Tayler Gutiérrez MD Primary Care Provider + Reason for Visit * Reason Onset Date Comments Appointment Related 04/01/2017 Encounter Details Date Type Department Care Team (Late st Contact Info) Description 04/01/2017 Telephone [facility] General Surgery - [facility] [address] [place] [address] Bacilio Laguna MD [address] [facility], [address] [place] [address] Appointment Related Social History Tobacco [...] Encounter - Izabela Church Je - 04/01/2017 8526 EDT Patient called and wanted to cancel all appointments she is following at the [facility].Did not want to reschedule any testing. documented in this encounter Plan of Treatment Not on file documented as of this encounter Visit Diagnoses Not on filedocumented in this encounter Care Teams Television News Photographer Relationship Specialty Start Date End Date Tayler Gutiérrez MD [address] [place] [address] PCP - General 09/17/14 12/18/17 documented as of this encounter
--- OUTSIDE RECORDS SUMMARY | 2024-12-01 10:36 | XMS_ITS | Encounter Summary ---
Author Organization [facility] Address [address] [place] [address] Care Team Providers Care Inspector And Mender Name Role Phone Monique Gonzalez Primary Care Provider [phone] Encounter Details Date Type Department Care Team (Latest Contact Info) Description 06/01/2012 7:49 EDT - 06/01/2012 7:55 EDT Hospital Encounter [address] [address] Sara Rhoades PA Discharge Disposition: Home or [...] on filedocumented in this encounter Care Teams Inspector And Mender Relationship Specialty Start Date End Date Monique Gonzalez PA [address] [place] [address] PCP - General 11/25/11 09/16/14 documented as of this encounter
--- OUTSIDE RECORDS SUMMARY | 2024-12-01 10:36 | XMS_ITS | Encounter Summary ---
Author Organization [facility] Address [address] [place] [address] Care Team Providers Care Weatherization Technician Name Role Phone Tayler Gutiérrez MD Primary Care Provider + Encounter Details Date Type Department Care Team (Late st Contact Info) Description 01/01/2016 Phlebotomy Only [facility] - [address] [address] Policy Change Clerk, Outpatient Positive ROMI (antinuclear antibody); Gluten-sensitive enteropathy [...] 016 11:32 EDT Positive ROMI (antinuclear antibody) DEAN OF ADMISSIONS ANTIBODY, IGG Routine 01/01/2016 11: 32 EDT [...] <15 <61 U/mL 01/01/20 16 13:09 EDT [facility] Thyroperoxidase Ab <28 <61 U/mL 2015 14:46 EDT [facility] Blood specimen (specimen) BLOOD SPECIMEN / Unknown 01/01/2016 11:32 EDT 01/01/2016 11:59 EDT us Kumar Hester MD CHEMISTRY & BLOOD GAS ORDERABLES Final Result [facility] [address] [place] [address] * TISSUE TRANSGLUTAMINASE AB (01/01/2016 11:32 EDT) Tissue Transglut Ab <1.2 <4 U/mL 01/02/2016 14:08 EDT [facility] Comment: The following results were obtained with the wst.cnVA QUANTA Lite R h-tTG IgA DONY assay on the OpenTrust DSX. A negative result may be due to IgA deficiency and does not rule out celiac disease. Blood specimen (specimen) BLOOD SPECIMEN / Unknown 01/01/2016 11:32 EDT 01/01/2016 11:59 EDT Kumar Hester MD IMMUNOLOGY AND SEROLOGY ORDERABL ES Final Result Performing Organization Address [facility] de Phone Number [facility] [address] [place] [address] * DEAN OF ADMISSIONS ANTIBODIES BY DONY (01/01/2016 11:32 EDT) DEAN OF ADMISSIONS Antibody 2.4 <20 Units 01/05/2016 17:03 EDT [facility] Comment: Negative: <20 Units Weak Positive: 20 - 29 Units Moderate Positive: 40 - 80 Units Strong Positive: >80 Units The following results were obtained with the [employer] QUANTA Lite DEAN OF ADMISSIONS DONY. DEAN OF ADMISSIONS values obtained with different manufacturers' assay methods may not be used interchangeably. The magnitude of the reported IgG levels cannot be correlated to an endpoint titer. A positive result in the QUANTA Lite DEAN OF ADMISSIONS DONY indicates the presence of antibodies reactive with the DEAN OF ADMISSIONS/Sm complex but cannot distinguish between anti-Sm and anti-DEAN OF ADMISSIONS activity. Blood specimen (specimen) BLOOD SPECIMEN / Unknown 01/01/2016 11:32 EDT 01/01/2016 11:59 EDT us Kumar Hester MD IMMUNOLOGY AND SEROLOGY ORDERABL ES Final Result Performing Organization Address [facility] de Phone Number [facility] [address] [place] [address] * SM ANTIBODIES BY DONY (01/01/2016 11:32 EDT) Sm (Ross) Antibody 3.0 <20 Units 01/05/2016 17:03 EDT [facility] Comment: Negative: <20 Units [...] ORDERABL ES Final Result Performing Organization Address [facility] de Phone Number [facility] [address] [place] [address] * SSA ANTIBODIES BY DONY (01/01/2016 11:32 EDT) SSA Antibody 2.0 <20 Units 01/05/2016 14:58 EDT [facility] Comment: Negative: <20 Units [...] ORDERABL ES Final Result Performing Organization Address [facility] Co de Phone Number [facility] [address] [place] [address] * SSB ANTIBODIES BY DONY (01/01/2016 11:32 EDT) SSB Antibody 1.5 <20 Units 01/05/2016 14:58 EDT [facility] Comment: Negative: <20 Units [...] ORDERABL ES Final Result Performing Organization Address [facility] Co de Phone Number [facility] [address] [place] [address] * (ABNORMAL) C4 COMPLEMENT (01/01/2016 11:32 EDT) C4 Complement 14(L) 16 - 38 mg/dl 01/01/2016 15:03 EDT [facility] Blood specimen (specimen) BLOOD SPECIMEN / Unknown 01/01/2016 11:32 EDT 01/01/2016 11:59 EDT us Kumar Hester MD CHEMISTRY & BLOOD GAS ORDERABLES Final Result Performing Organization Address [facility] Co de Phone Number [facility] [address] [place] [address] * ANTI DNA (DOUBLE STRAND) (01/01/2016 11:32 EDT) [facility] Anti DNA (DS) <12.3 <30 IU/mL 01/06/2016 12:35 EDT [facility] Comment: The following results were obtained with the wst.cnVA QUANTA Lite dsDNA SC Dony assay on the [employer]Trust DSX. Blood specimen (specimen) BLOOD SPECIMEN / Unknown 01/01/2016 11:32 EDT 01/01/2016 11:59 EDT Result Elvia Hester MD IMMUNOLOGY AND SEROLOGY ORDERABL ES Final Result Performing Organization Address [facility] Co de Phone Number [facility] [address] [place] [address] * URINALYSIS WITH REFLEX MICROSCOPIC (01/01/2016 11:31 EDT) Color, UA Yellow 01/01/2016 12:03 EDT [facility] Clarity, UA Hazy 01/01/2016 12:03 EDT [facility] Glucose, UA Neg Neg 01/01/2016 12:03 T [facility] Bilirubin, UA Neg Neg 01/01/2016 12:03 T [facility] Ketones, UA Neg Neg 01/01/2016 12:03 T [facility] Specific [place], Urine 1.010 1.001 - 1.035 01/01/2016 12:03 EDT [facility] Blood, UA Neg Neg 01/01/2016 12:03 T [facility] pH, UA 6.0 4.6 - 8.0 01/01/2016 12:03 T [facility] Protein, UA Neg Neg 01/01/2016 12:03 [facility] Urobilinogen, UA 0.2 0.2 - 1.0 E.U./dl 01/01/2016 12:03 T [facility] Nitrite, UA Neg Neg 01/01/2016 12:03 T [facility] Leuk Esterase Neg Neg 01/01/2016 12:03 T [facility] Urine specimen (specimen) URINE / Unknown 01/01/2016 11:31 EDT 01/01/2016 11:50 EDT us Kumar Hester MD URINALYSIS ORDERABLES Final Resu lt [facility] [address] [place] [address] documented in this encounter Visit Diagnoses Diagnosis Positive ROMI (antinuclear antibody) Other and unspecified nonspecific immunological findings Gluten-sensitive enteropathy Celiac disease documented in this encounter Care Teams Weatherization Technician Relationship Specialty Start Date End Date Tayler Gutiérrez MD [address] [place] [address] PCP - General 09/17/14 12/18/17 documented as of this encounter
--- OUTSIDE RECORDS SUMMARY | 2024-12-01 10:36 | XMS_ITS | Encounter Summary ---
Author Organization [facility] Address [address] [place] [address] Care Team Providers Care Threshing Department Supervisor Name Role Phone Bailey Swartz MD Primary Care Provider [phone] Encounter Details Date Type Department Care Team (Late st Contact Info) Description 05/27/2010 16:45 EDT - 05/27/2010 16:46 EDT Hospital Encounter [facility] - Other [address] [place] [address] Kath Vazquez, RELEASE AND TECHNICAL RECORDS CLERK [address] [place] [phone] Discharge Disposition: Home or Self Care Social [...] on filedocumented in this encounter Care Teams Threshing Department Supervisor Relationship Specialty Start Date End Date Bailey Swartz MD [address] [place] [phone] PCP - General 08/21/09 11/24/11 documented as of this encounter
--- OUTSIDE RECORDS SUMMARY | 2024-12-01 10:36 | XMS_ITS | Encounter Summary ---
Author Organization [facility] Address [address] [place] [address] Care Team Providers Care Instrument Maker Name Role Phone Bailey Swartz MD Primary Care Provider [phone] Encounter Details Date Type Department Care Team (Late st Contact Info) Description 01/28/2010 13:44 EDT - 01/28/2010 13:[address] [facility] - Other [address] [place] [address] Kath Vazquez, RISK TECH [address] [place] [phone] Discharge Disposition: Home-Health Care Svc Social History [...] on filedocumented in this encounter Care Teams Instrument Maker Relationship Specialty Start Date End Date Bailey Swartz MD [address] [place] [phone] PCP - General 08/21/09 11/24/11 documented as of this encounter
--- OUTSIDE RECORDS SUMMARY | 2024-12-01 10:36 | XMS_ITS | Encounter Summary ---
Author Organization [facility] Address [address] [place] [address] Care Team Providers Care Evaluator Transfer Students Name Role Phone Irais MancillaC Primary Care Provider Encounter Details Date Type Department Care Team (Latest Contact Info) Description 04/15/2009 15:41 EDT - 04/15/2009 15:42 EDT Hospital Encounter [facility] - Other [address] [place] [address] Desirae Healy PA [address] [place], [place] [phone] Discharge Disposition: Home or Self Care Social [...] ? JEROME ROSS ? Accession #: ? [id number] ? : ? 1985 (Age: 24) ??F ?Collect Date: ? 06/12/2009 ? Location: ? [facility] ? Receive Date: ? 06/13/2009 ? Provider: ?KATH JIN RIP/MOULD OPERATOR ? Copy to: ? Specimen/Source: ?Pap Test, [...] [facility] 06/12/2009 06/13/2009 us Kath Vazquez ENTERPRISE ENGINEER PATHOLOGY ORDERABLES Final Resu lt [facility] [address] [place] [address] documented in this encounter Visit Diagnoses Not on filedocumented in this encounter Care Teams Evaluator Transfer Students Relationship Specialty Start Date End Date Irais Mancilla PA-C [address] [place] [phone] PCP - General 02/04/09 08/20/09 documented as of this encounter
--- OUTSIDE RECORDS SUMMARY | 2024-12-01 10:36 | XMS_ITS | Encounter Summary ---
Author Organization [facility] Address [address] [place] [address] Care Team Providers Care Certified Nutritionist Name Role Phone Monique Gonzalez Primary Care Provider [phone] Encounter Details Date Type Department Care Team (Late st Contact Info) Description 08/06/2013 Results Only [facility] [phone] Wilda Ochoa PA [address],[facility] [address] [place] [address] Social History Tobacco Use Types [...] ? JESSICA ROBLEDO ? Accession #: ? [id number] ? : ? 1985 (Age: 28) ??F [...] consultation. These results were phoned to [facility]. (Dr. Sneed)/yesenia Microscopic Description: Sections consist [...] ORDERABLES Final Result [facility] [address] [place] [address] documented in this encounter Visit Diagnoses Not on filedocumented in this encounter Care Teams Certified Nutritionist Relationship Specialty Start Date End Date Monique Gonzalez PA [address] [place] [address] PCP - General 11/25/11 09/16/14 documented as of this encounter
--- OUTSIDE RECORDS SUMMARY | 2024-12-01 10:36 | XMS_ITS | Encounter Summary ---
Author Organization [facility] Address [address] [place] [address] Care Team Providers Care Fishing Boat Captain Name Role Phone Tayler Gutiérrez MD Primary Care Provider + Reason for Referral * Consult, Test and Treat (Routine) - Closed Specialty Diagnoses / Procedures Referred By Contact Referred To Contact Gastroenterology and Hepatology Diagnoses Epigastric pain Procedures ENDOSCOPIC ULTRASOUND Bacilio Laguna MD Phone: tel: fax: Artur Mancera MD Phone: tel:[phone] fax:[phone] Referral ID Status Reason Start Date Expiration Date Visits Re quested Visits Authorized [id number] Closed 03/28/2017 1 1 Reason for Visit * Reason Comments New Patient Visit Duodenal Mass (TB Di scussion 03/28) Encounter Details Date Type Department Care Team (Late st Contact Info) Description 03/28/2017 11:00 EDT Office Visit [facility] General Surgery - [facility] [address] [place], [place] [phone] Bacilio Laguna MD [address] [facility], [address] [place] [phone] Epigastric pain (Primary Dx) Social History Tobacco [...] [facility] comes to me now [...] a state bruce is being transferred from [place] to [facility]. Right now he is commuting. 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 added in this encounter Care Teams Fishing Boat Captain Relationship Specialty Start Date End Date Tayler Gutiérrez MD [address] [place] [address] PCP - General 09/17/14 12/18/17 documented as of this encounter
--- OUTSIDE RECORDS SUMMARY | 2024-12-01 10:36 | XMS_ITS | Encounter Summary ---
Author Organization [facility] Address [address] [place] [address] Care Team Providers Care Electric Powerline Examiner Name Role Phone Irais Mancilla PA-C Primary Care Provider Encounter Details Date Type Department Care Team (Late st Contact Info) Description 06/12/2009 11:05 EDT - 06/12/2009 11:06 EDT Hospital Encounter [facility] - Other [address] [place] [address] Kath Vazquez, PHOTOGRAPHIC PRINTER [address] [place] [phone] Discharge Disposition: Home-Health Care Svc Social History [...] on filedocumented in this encounter Care Teams Electric Powerline Examiner Relationship Specialty Start Date End Date Irais Mancilla PA-C [address] [place] [phone] PCP - General 02/04/09 08/20/09 documented as of this encounter
--- OUTSIDE RECORDS SUMMARY | 2024-12-01 10:36 | XMS_ITS | Encounter Summary ---
Author Organization [facility] Address [address] [place] [address] Care Team Providers Care Inspector Automatic Typewriter Name Role Phone Monique Gonzalez Primary Care Provider [phone] Reason for Visit * Reason Onset Date Comments Paperwork request 02/22/2014 status Encounter Details Date Type Department Care Team (Late st Contact Info) Description 02/22/2014 Telephone [facility] Cardiology - [address] [place] [address] Shirley Davenport Paperwork request (status) Social History [...] - Arsen Rodriguez - 02/22/2014 1542 EDT Karen call Radha to confirm status of form for event monitor faxed 02/19 by [place] provider. documented in this encounter Plan of Treatment Not on file documented as of this encounter Visit Diagnoses Not on filedocumented in this encounter Care Teams Inspector Automatic Typewriter Relationship Specialty Start Date End Date Monique Gonzalez PA [address] [place] [address] PCP - General 11/25/11 09/16/14 documented as of this encounter
--- OUTSIDE RECORDS SUMMARY | 2024-12-01 10:36 | XMS_ITS | Encounter Summary ---
Author Organization [facility] Address [address] [place] [address] Care Team Providers Care Wastewater Operator Name Role Phone Monique Gonzalez Primary Care Provider [phone] Encounter Details Date Type Department Care Team (Latest Contact Info) Description 07/09/2014 11:44 EDT - 07/09/2014 11:46 EDT Hospital Encounter [address] [address] Sybil Sanchez PA [address] [address] Discharge Disposition: Home or Self Care Social [...] on filedocumented in this encounter Care Teams Wastewater Operator Relationship Specialty Start Date End Date Monique Gonzalez PA [address] [place] [address] PCP - General 11/25/11 09/16/14 documented as of this encounter
--- OUTSIDE RECORDS SUMMARY | 2024-12-01 10:36 | XMS_ITS | Encounter Summary ---
Author Organization [facility] Address [address] [place] [address] Care Team Providers Care Gallery Director Name Role Phone Tayler Gutiérrez MD Primary Care Provider + Rebekah Greco NP Primary Care Provider [phone] Reason for Visit * Reason Onset Date Comments Knee Pain 09/17/2014 Encounter Details Date Type Department Care Team (Late st Contact Info) Description 09/17/2014 Orders Only [facility] Sports Medicine Program - [address] [place], [place] [id number] Brendan Kraft Right knee pain (Primary Dx) [...] leg documented in this encounter Care Teams Gallery Director Relationship Specialty Start Date End Date Tayler Gutiérrez MD [address] [place] [address] PCP - General 09/17/14 12/18/17 Rebekah Greco NP [address] [place] [address] PCP - General 12/19/17 documented as of this encounter
--- OUTSIDE RECORDS SUMMARY | 2024-12-01 10:36 | XMS_ITS | Encounter Summary ---
Author Organization [facility] Address [address] [place] [address] Care Team Providers Care Loan Originator Name Role Phone Unavailable Primary Care Provider Unavailabl e Encounter Details Date Type Department Care Team (Latest Contact Info) Description 07/10/2008 22:22 EDT Hospital Encounter [facility] - Other [address] [place] [address] Desirae Healy PA [address] [place] [address] Discharge Disposition: Home or Self Care Social [...]
--- OUTSIDE RECORDS SUMMARY | 2024-12-01 10:36 | XMS_ITS | Encounter Summary ---
Author Organization [facility] Address [address] [place] [address] Care Team Providers Care Mammography Technologist Name Role Phone Bailey Swartz MD Primary Care Provider [phone] Encounter Details Date Type Department Care Team (Late st Contact Info) Description 01/28/2010 Results Only [facility] - [facility] [address] [place], [place] [address] Kath Vazquez, ROLLING MILL OPERATOR [address] [place] [address] Social History Tobacco Use Types [...] ? JEROME ROSS ? Accession #: ? [id number] ? : ? 1985 (Age: 24) ??F ?Collect Date: ? 01/28/2010 ? Location: ? [facility] ? Receive Date: ? 01/29/2010 ? Provider: ?AKTH JIN CABLE PULLER ? Copy to: ? Specimen/Source: ?Pap Test, [...] [facility] 01/28/2010 01/29/2010 us Kath Vazquez ROLLING MILL OPERATOR PATHOLOGY ORDERABLES Final Resu lt [facility] [address] [place] [address] documented in this encounter Visit Diagnoses Not on filedocumented in this encounter Care Teams Mammography Technologist Relationship Specialty Start Date End Date Bailey Swartz MD [address] [address] PCP - General 08/21/09 11/24/11 documented as of this encounter
--- OUTSIDE RECORDS SUMMARY | 2024-12-01 10:36 | XMS_ITS | Encounter Summary ---
Author Organization [facility] Address [address] [place] [address] Care Team Providers Care Felt Hanger Name Role Phone Monique Gonzalez Primary Care Provider [phone] Encounter Details Date Type Department Care Team (Late st Contact Info) Description 01/24/2013 Results Only Imaging [facility] [phone] Dean Stewart DPM [address] [place] [address] Social History Tobacco Use Types Packs/Day Years [...] on filedocumented in this encounter Care Teams Felt Hanger Relationship Specialty Start Date End Date Monique Gonzalez PA [address] [place] [address] PCP - General 11/25/11 09/16/14 documented as of this encounter
--- OUTSIDE RECORDS SUMMARY | 2024-12-01 10:36 | XMS_ITS | Encounter Summary ---
Author Organization [facility] Address [address] [place] [address] Care Team Providers Care Vending Supervisor Name Role Phone Monique Gonzalez Primary Care Provider [phone] Encounter Details Date Type Department Care Team (Late st Contact Info) Description 01/26/2012 9:28 EDT - 01/26/2012 20:09 EDT Hospital Encounter [facility] Perioperative Services - [address] [phone] Dean Ace DPM [address] [place], [place] [address] Discharge Disposition: Home or Self Care Social [...] 01/26/2012 1930 EDT Oxygen Saturation 99% 01/26/2012 194 EDT Inhaled Oxygen Concentration - - Weight 61.2 kg (135 lb) 01/24/2012 1615 EDT Height 162.6 cm (5' 4) 01/24/2012 1615 EDT Body Mass Index 23.17 01/24/2012 1615 EDT documented in this encounter Discharge Instructions * Discharge Instructions* Dean Ace MD - 01/26/2012 14:25 EDT [facility] DEAN AEC, RUSS Fellow, [employer] Diplomat, [employer] Jerome Ross 1984 [...] May reduce thickness of roll if needed. eDan Ace MD 01/26/2012 documented in this encounter [...] documented in this encounter Progress Notes * RN RESIDENTIAL, SCAN 2 - 01/28/2012 2309 EDT * [...] pt leaving pacu escorted to car by Chiquita DONALDSON 1615- Pt rushing into the PACU [...] now with much encourgement from RN and juan briseno rn assisting pt encourged that everything [...] documented in this encounter H&P Notes * RN RESIDENTIAL, SCAN 2 - 01/28/2012 2309 EDT * [...] documented in this encounter Procedure Notes * RN RESIDENTIAL, SCAN 2 - 01/28/2012 0354 EDTAssociated Order(s): ECG REPORT - SCANNED * RN RESIDENTIAL, SCAN 2 - 01/28/2012 1217 EDTAssociated Order(s): ORDERS - SCANNED documented in this encounter OR Notes * Anesthesia Preprocedure Evaluation - RN RESIDENTIAL, SCAN 2 - 02/03/2012 0940 EDT * OR PreOp - RN RESIDENTIAL, SCAN 2 - 01/28/2012 2309 EDT * [...] anesthesia well, was discharged to home per [facility] procedure protocol. FINDINGS: Taut plantar fascia released without any residual tension noted following release, right foot. Unless otherwise noted, there were no complications, no blood loss, no cultures obtained, no specimens removed, and no drains retained. Dean Ace DPM 04 37 PM / Dean Ace DPM ss Confirmation: [id number] Dictation ID: [id number] cc: Monique Gonzalez PA-C * Anesthesia Procedure Notes - RN RESIDENTIAL, SCAN 2 - 01/26/2012 1427 EDT * OR PreOp - RN RESIDENTIAL, SCAN 2 - 01/26/2012 1412 EDT documented in this encounter Miscellaneous Notes * Scanned Note-Null - RN RESIDENTIAL, SCAN 2 - 01/28/2012 7968 EDT * Scanned Note-Null - RN RESIDENTIAL, SCAN 2 - 01/28/2012 2742 EDT * Brief Op Note - RN RESIDENTIAL, SCAN 2 - 01/28/2012 2309 EDT * [...] EDT) 01/28/2012 23:0 9 EDT Narrative Transcriptions RN RESIDENTIAL, SCAN 2 - 01/28/2012 23:09 EDT us Scan 2 Quality Director ADMISSION ORDERABLES Final Result * ECG REPORT - SCANNED (01/28/2012 23:09 EDT) 01/28/2012 23:0 9 EDT Narrative Transcriptions RN RESIDENTIAL, SCAN 2 - 01/28/2012 23:09 EDT us Scan 2 Quality Director PROCEDURE/MINOR SURGICAL OR DERABLES Final Result documented [...] 01/26/2012 documented in this encounter Care Teams Vending Supervisor Relationship Specialty Start Date End Date Monique Gonzalez PA [address] [place] [address] PCP - General 11/25/11 09/16/14 documented as of this encounter
--- OUTSIDE RECORDS SUMMARY | 2024-12-01 10:36 | XMS_ITS | Encounter Summary ---
Author Organization [facility] Address [address] [place] [address] Care Team Providers Care Arson Investigator Name Role Phone Monique Gonzalez Primary Care Provider [phone] Tayler Gutiérrez MD Primary Care Provider + Rebekah Greco NP Primary Care Provider [phone] Reason for Referral * Radiology Services (Routine) - Closed Specialty Diagnoses / Procedures Referred By Contac t Referred To Contact Diagnoses Right knee pain Procedures KNEES 3 VIEWS Brendan Kraft Referral ID Status Reason Start Date Expiration Date Visits Re quested Visits Authorized [id number] Closed 09/16/2014 1 1 * Radiology Services (Routine) - Closed Specialty Diagnoses / Procedures Referred By Contac t Referred To Contact Diagnoses Right knee pain Procedures KNEE 4 OR MORE VIEWS Brendan Kraft Referral ID Status Reason Start Date Expiration Date Visits Re quested Visits Authorized [id number] Closed 09/16/2014 1 1 Reason for Visit * Reason Onset Date Comments Knee Pain 09/16/2014 Encounter Details Date Type Department Care Team (Late st Contact Info) Description 09/16/2014 Orders Only [facility] Sports Medicine Program - [address] [place], [place] [id number] Brendan Kraft Right knee pain (Primary Dx) [...] and Symptoms/Comments: ?? 719.46-Pain in joint, lower ngg-SID-3-CM; right knee pain, bony abnormality. ??Per Ed. Abena CLEMENTS. Image Left knee 3views for comparison. Changed this exam from right 3views to Left 3views. [facility] 09-17-14 . Bilateral knees findings: Alignment is anatomic. No bony abnormalities are seen in either knees. Procedure Note 09/17/2014 KNEES 3 VIEWS, KNEE 4 OR MORE VIEWS 09/17/2014 10:25 AM Signs and Symptoms/Comments: 719.46-Pain in joint, lower kbp-GYV-8-CM; right knee pain, bony abnormality. Per Ed. Abena PA. Image Left knee 3views for comparison. Changed this exam from right 3views to Left 3views. [facility] 09-17-14 . Bilateral knees findings: Alignment [...] and Symptoms/Comments: ?? 719.46-Pain in joint, lower kym-UYN-2-CM; right knee pain, bony abnormality. ??Per Ed. Abena CLEMENTS. Image Left knee 3views for comparison. Changed this exam from right 3views to Left 3views. [facility] 09-17-14 . Bilateral knees findings: Alignment is anatomic. No bony abnormalities are seen in either knees. Procedure Note 09/17/2014 KNEES 3 VIEWS, KNEE 4 OR MORE VIEWS 09/17/2014 10:25 AM Signs and Symptoms/Comments: 719.46-Pain in joint, lower als-DAU-7-CM; right knee pain, bony abnormality. Per Ed. Abena CLEMENTS. Image Left knee 3views for comparison. Changed this exam from right 3views to Left 3views. [facility] 09-17-14 . Bilateral knees findings: Alignment is anatomic. No bony abnormalities are seen in either knees. Brendan Kraft IMG DIAGNOSTIC IMAGING ORDERABLE S Final Result documented in this encounter Visit Diagnoses Diagnosis Right knee pain- Primary Pain in joint, lower leg documented in this encounter Care Teams Arson Investigator Relationship Specialty Start Date End Date Monique Gonzalez PA [address] [place] [address] PCP - General 11/25/11 09/16/14 Tayler Gutiérrez MD [address] [place] [address] PCP - General 09/17/14 12/18/17 Rebekah Greco NP [address] [place] [address] PCP - General 12/19/17 documented as of this encounter
--- OUTSIDE RECORDS SUMMARY | 2024-12-01 10:36 | XMS_ITS | Encounter Summary ---
Author Organization [facility] Address [address] [place] [address] Care Team Providers Care City Surveyor Name Role Phone Monique Gonzalez Primary Care Provider [phone] Encounter Details Date Type Department Care Team (Late st Contact Info) Description 06/01/2012 Results Only [facility] Laboratory Services - [facility] ([address] [phone] CousinsLelo PA Social History Tobacco Use Types [...] ? JEROME ROBLEDO ? Accession #: ? [id number] : ? 1985 (Age: 27) ??F ?Collect [...] ORDERABLES Final R esult Performing Organization Address City/State/[facility] Co de Phone Number [facility] [address] [place] [address] documented in this encounter Visit Diagnoses Not on filedocumented in this encounter Care Teams City Surveyor Relationship Specialty Start Date End Date Monique Gonzalez PA [address] [place] [address] PCP - General 11/25/11 09/16/14 documented as of this encounter
--- OUTSIDE RECORDS SUMMARY | 2024-12-01 10:36 | XMS_ITS | Encounter Summary ---
Author Organization [facility] Address [address] [place] [address] Care Team Providers Care Checker Stocker Name Role Phone Monique Gonzalez Primary Care Provider [phone] Encounter Details Date Type Department Care Team (Late st Contact Info) Description 01/25/2013 Results Only Imaging [facility] [phone] Dean Stewart DPM [address] [place] [address] Social History Tobacco Use Types Packs/Day Years [...] on filedocumented in this encounter Care Teams Checker Stocker Relationship Specialty Start Date End Date Monique Gonzalez PA [address] [place] [address] PCP - General 11/25/11 09/16/14 documented as of this encounter
--- OUTSIDE RECORDS SUMMARY | 2024-12-01 10:37 | XMS_ITS | Encounter Summary ---
Author Organization [facility] Address [address] [place] [address] Care Team Providers Care Reinforcing Steel Worker Name Role Phone Bailey Swartz MD Primary Care Provider Irais Mancilla PA-C Primary Care Provider Encounter Details Date Type Department Care Team (Late st Contact Info) Description 07/02/2004 Results Only [facility] - [place] conversion [address] [place] [address] Julián Marcos, BACKGROUND INVESTIGATOR [address] [place], [place] [address] Social History Tobacco Use Types Packs/Day Years [...] ? JEROME ROSS ? Accession #: ? [id number] : ? 1985 (Age: 19) ??F ?Collect Date: ? 07/02/2004 Location: ? [facility] ? Receive Date: ? 07/03/2004 Provider: ?JULIÁN MARCOS WATER PLANT OPERATOR Copy to: ? Specimen/Source: ?ThinPrep Pap [...] Final Re sult [facility] [address] [place] [address] documented in this encounter Visit Diagnoses Not on filedocumented in this encounter Care Teams Reinforcing Steel Worker Relationship Specialty Start Date End Date Bailey Swartz MD [address] [facility] [address] [place] [address] PCP - General 08/21/09 11/24/11 Irais Mancilla PA-C [address] [place] [phone] PCP - General 02/04/09 08/20/09 documented as of this encounter
--- OUTSIDE RECORDS SUMMARY | 2024-12-01 10:37 | XMS_ITS | Encounter Summary ---
Author Organization [facility] Address [address] [place] [address] Care Team Providers Care Truck Terminal Manager Name Role Phone Unavailable Primary Care Provider Unavailabl e Encounter Details Date Type Department Care Team (Latest Contact Info) Description 08/23/2003 16:24 EST Hospital Encounter [facility] conversion [address] [place] [address] Zacarias Alves III, ANP [address] [facility] [place] [address] Discharge Disposition: Auto Discharge Social [...]
--- OUTSIDE RECORDS SUMMARY | 2024-12-01 10:37 | XMS_ITS | Encounter Summary ---
Author Organization [facility] Address [address] [place] [address] Care Team Providers Care Motor Bike Mechanic Name Role Phone Unavailable Primary Care Provider Unavailabl e Encounter Details Date Type Department Care Team (Latest Contact Info) Description 09/13/2005 12:56 EST Hospital Encounter [facility] - Other [address] [place] [address] Phyllis Hernandez, ELECTROLYSIST [address] [place] [address] Discharge Disposition: Home or Self Care Social [...]
--- OUTSIDE RECORDS SUMMARY | 2024-12-01 10:37 | XMS_ITS | Encounter Summary ---
Author Organization [facility] Address [address] [place] [address] Care Team Providers Care Code Machine Operator Name Role Phone Unavailable Primary Care Provider Unavailabl e Encounter Details Date Type Department Care Team (Late st Contact Info) Description 12/10/2005 10:22 EST Hospital Encounter [facility] - [place] conversion [address] [place] [address] Anshul Campos MD [address] [facility] [address] [place] [address] Social History Tobacco Use Types [...]
--- OUTSIDE RECORDS SUMMARY | 2024-12-01 10:37 | XMS_ITS | Encounter Summary ---
Author Organization [facility] Address [address] [place] [address] Care Team Providers Care Juice Bar Team Member Name Role Phone Unavailable Primary Care Provider Unavailabl e Encounter Details Date Type Department Care Team (Late st Contact Info) Description 09/20/2003 22:11 EST Hospital Encounter [facility] - Other [address] [place] [address] Lisa Fragoso, ROUTE DELIVERER [address] [place] [address] Social History Tobacco Use Types [...] encounter Results * MONO-TEST (07/23/2004 8:05 EDT) [place]-Test Neg NEG [facility] 07/23/2004 8:05 EDT 07/23/2004 19:38 EDT Phyllis Hernandez APRN CHEMISTRY & BLOOD GAS ORDERAB LES Final Result Performing Organization Address [facility] de Phone Number [facility] [address] [place] [address] * LIPID PROFILE (INCLUDES CHOLESTEROL, TRIGLYCERIDES, HDL, LDL) (07/23/2004 8:05 EDT) Cholesterol 165 mg/dl [facility] Comment: Desirable:<200 Borderline:200-239 High Risk:>yg=302 Triglycerides 113 35 - 160 mg/dl [facility] HDL 63 mg/dl [facility] Comment: Highly Desirable:>60 Desirable:35-60 High Risk:<35 LDL, Calculated 79 mg/dl [facility] Comment: Desirable:<130 Borderline:130-159 High Risk:>jg=511 Chol/HDL Ratio 2.6 [facility] 07/23/2004 8:05 EDT 07/23/2004 19:38 EDT Phyllis Hernandez APRN CHEMISTRY & BLOOD GAS ORDERAB LES Final Result Performing Organization Address [facility] de Phone Number [facility] [address] [place] [address] * HEMAGRAM (07/23/2004 8:05 EDT) WBC 8.52 [...] ORDERABLES F inal Result Performing Organization Address City/[facility] Co de Phone Number [facility] [address] [place] [address] * BASIC METABOLIC PANEL (07/23/2004 8:05 EDT) Sodium 141 136 - 145 mEq/L [facility] Potassium 4.0 3.5 - 5.0 mEq/L [facility] Chloride 105 96 - 110 mEq/L [facility] CO2 27 24 - 32 mEq/L [facility] BUN 11 10 - 26 [...] ORDERAB LES Final Result Performing Organization Address City/[facility] Co de Phone Number [facility] [address] [place] [address] documented in this encounter Visit Diagnoses Not on filedocumented in this encounter
--- OUTSIDE RECORDS SUMMARY | 2024-12-01 10:37 | XMS_ITS | Encounter Summary ---
Author Organization [facility] Address [address] [place] [address] Care Team Providers Care Media Sales Representative Name Role Phone Unavailable Primary Care Provider Unavailabl e Encounter Details Date Type Department Care Team (Latest Contact Info) Description 09/02/2003 21:27 EST Hospital Encounter [facility] [address] [place] [address] Zacarias Alves III, ANP [address] [place] [address] Discharge Disposition: Auto Discharge Social [...] the medial gastrocnemius at its femoral attachment. /[facility] Narrative 06/16/2009 1:44 EDT RIGHT KNEE [...] the medial gastrocnemius at its femoral attachment. /[facility] us Zacarias Jagruti Joselyn III, ANP IMG MRI ORDERABLES Final Result documented in this encounter Visit Diagnoses Not on filedocumented in this encounter
--- OUTSIDE RECORDS SUMMARY | 2024-12-01 10:37 | XMS_ITS | Encounter Summary ---
Author Organization [facility] Address [address] [place] [address] Care Team Providers Care Knowledge Manager Name Role Phone Bailey Swartz MD Primary Care Provider Irais Mancilla PA-C Primary Care Provider Encounter Details Date Type Department Care Team (Late st Contact Info) Description 07/03/2007 Results Only [facility] [place] [facility] [address] [place] [address] Latoya Sánchez, WAREHOUSE RECEIVING SUPERVISOR [address] [place] [address] Social History Tobacco Use Types [...] cancers. [facility] Report Status Final [id number] [facility] 07/03/2007 15:0 2 EDT 07/11/2007 15:02 EDT Latoya Sánchez WAREHOUSE RECEIVING SUPERVISOR MICROBIOLOGY - [facility] Final Result [facility] [address] [place] [address] * CYTOPATHOLOGY (07/03/2007 0:00 EDT) Pathology Report: CYTOPATHOLOGY REPORT Reports generated via electronic interface contain original data; however they are lacking the format of the original report. Caution should be taken when reading/interpreti ng unformatted reports. Name: ? ROSSJEROME ? Accession #: ? [id number] : ? 1985 (Age: 22) ??F ?Collect Date: ? 07/03/2007 Location: ? [facility] ? Receive Date: ? 07/04/2007 Provider: ?LATOYA SÁNCHEZ WAREHOUSE RECEIVING SUPERVISOR Copy to: ? Specimen/Source: ?ThinPrep Pap Test, Cervix/Endocervix, processed on The Online 401 ThinPrep Imaging System, with manual evaluation Last [...] undetermined significance (ASC-US). EDUCATIONAL NOTES/RECOMMENDATI ONS ? [facility] recommends following the 2001 Consensus Guidelines for the Management of Women with Cervical Cytological Abnormalities (GARCÍA,2002;287:212 0-9). Management algorithms have been distributed by [facility] and are available online at www.ASCCP.org. ? Document reviewed and electronically signed by: ? Janis Luis MD PhD ? Report Date: ??07/11/2007 13:46 End of Report [facility] 07/03/2007 07/04/2007 us Latoya Sánchez WAREHOUSE RECEIVING SUPERVISOR PATHOLOGY ORDERABLES Final Result Performing Organization Address City/State/[facility] Co de Phone Number [facility] [address] [place] [address] documented in this encounter Visit Diagnoses Not on filedocumented in this encounter Care Teams Knowledge Manager Relationship Specialty Start Date End Date Bailey Swartz MD [address] [place] [phone] PCP - General 08/21/09 11/24/11 Irais Mancilla PATrayC [address] [place] [address] PCP - General 02/04/09 08/20/09 documented as of this encounter
--- OUTSIDE RECORDS SUMMARY | 2024-12-01 10:37 | XMS_ITS | Encounter Summary ---
Author Organization [facility] Address [address] [place] [address] Care Team Providers Care Proof Reader Name Role Phone Bailey Swartz MD Primary Care Provider [phone] Irais Mancilla PA-C Primary Care Provider Encounter Details Date Type Department Care Team (Late st Contact Info) Description 08/09/2006 Results Only [facility] - Map conversion [address] [place] [address] Serene Sanchez MD [facility] [address] [address] Social History Tobacco Use Types [...] ? JEROME ROSS ? Accession #: ? [id number] ? : ? 1985 (Age: 21) ??F ? Collect Date: ? 08/09/2006 ? Location: ? [facility] ? Receive Date: ? 08/10/2006 ? Provider: SERENE SANCHEZ MD Copy to: IRENA SMALL RETAIL SUPERVISOR ? Final Pathologic Diagnosis: ? Endocervix, curettage: - Fragments of benign endocervical tissue. ?? See comment. Comment: ? The previous cervical biopsy ([id number]) has been reviewed and the high grade squamous intraepithelial lesion (NIKKO II) seen in the biopsy specimen is not present in the current endocervical curettage. ??(Dr. Schroeder)/[facility] Document reviewed and electronically signed by: Hernando Martinez, [facility] Report ??Date: 08/15/2006 16:50 By the signature [...] (AIME Lorenzo)/mpl End of Report [facility] 08/09/2006 08/10/2006 9:5 8 EDT us Serene Gino Sanchez MD PATHOLOGY ORDERABLES F inal Result Performing Organization Address City/State/[facility] Co de Phone Number [facility] [address] [place] [address] documented in this encounter Visit Diagnoses Not on filedocumented in this encounter Care Teams Proof Reader Relationship Specialty Start Date End Date Bailey Swartz MD [address] [place] [phone] PCP - General 08/21/09 11/24/11 Irais Mancilla, PA-C [address] [place] [address] PCP - General 02/04/09 08/20/09 documented as of this encounter
--- OUTSIDE RECORDS SUMMARY | 2024-12-01 10:37 | XMS_ITS | Encounter Summary ---
Author Organization [facility] Address [address] [place] [address] Care Team Providers Care Electrical Engineering Professor Name Role Phone Unavailable Primary Care Provider Unavailabl e Encounter Details Date Type Department Care Team (Late st Contact Info) Description 01/03/2007 11:35 EDT - 01/03/2007 11:59 EDT Hospital Encounter [facility] - Other [address] [place] [address] Wilber Sanchez MD [address] [phone] Discharge Disposition: Home or Self [...]
--- OUTSIDE RECORDS SUMMARY | 2024-12-01 10:37 | XMS_ITS | Encounter Summary ---
Author Organization [facility] Address [address] [place] [address] Care Team Providers Care Home Mortgage Disclosure Act Specialist Name Role Phone Bailey Swartz MD Primary Care Provider [phone] Irais Mancilla PA-C Primary Care Provider Encounter Details Date Type Department Care Team (Late st Contact Info) Description 12/12/2007 Results Only [facility] [address] [place] [address] Wilber Sanchez MD [facility] [address] [phone] Social History Tobacco Use Types [...] ? JEROME ROSS ? Accession #: ? [id number] ? : ? 1985 (Age: 22) ??F [...] is submitted in toto as (B). ??(Damion Craig)/[facility] End of Report [facility] 12/12/2007 12/13/2007 12: 00 EST us Wilber Gino Sanchez MD PATHOLOGY ORDERABLES F inal Result [facility] [address] [place] [address] documented in this encounter Visit Diagnoses Not on filedocumented in this encounter Care Teams Home Mortgage Disclosure Act Specialist Relationship Specialty Start Date End Date Bailey Swartz MD [address] [phone] PCP - General 08/21/09 11/24/11 Irais Mancilla, PA-C [address] [place] [phone] PCP - General 02/04/09 08/20/09 documented as of this encounter
--- OUTSIDE RECORDS SUMMARY | 2024-12-01 10:37 | XMS_ITS | Encounter Summary ---
Author Organization [facility] Address [address] [place] [address] Care Team Providers Care Senior Bi Developer Name Role Phone Unavailable Primary Care Provider Unavailabl e Encounter Details Date Type Department Care Team (Latest Contact Info) Description 11/07/2007 11:09 EST - 11/07/2007 11:59 EST Hospital Encounter [facility] - Other [address] [place] [address] Kristi Sánchez, [facility] [address] [place] [address] Discharge Disposition: Home or Self [...]
--- OUTSIDE RECORDS SUMMARY | 2024-12-01 10:37 | XMS_ITS | Encounter Summary ---
Author Organization [facility] Address [address] [place] [address] Care Team Providers Care Insurance Processor Name Role Phone Unavailable Primary Care Provider Unavailabl e Encounter Details Date Type Department Care Team (Latest Contact Info) Description 11/01/2003 14:13 EST - 11/16/2003 11:59 EST Hospital Encounter [facility] - [place] conversion [address] [place] [address] Zacarias Alves III, ANP [address] [place] [address] Discharge Disposition: Auto Discharge Social [...]
--- OUTSIDE RECORDS SUMMARY | 2024-12-01 10:37 | XMS_ITS | Encounter Summary ---
Author Organization [facility] Address [address] [place] [address] Care Team Providers Care Food Checker Name Role Phone Bailey Swartz MD Primary Care Provider Irais Mancilla PA-C Primary Care Provider Encounter Details Date Type Department Care Team (Late st Contact Info) Description 01/03/2007 Results Only [facility] - [place] conversion [address] [place] [address] Wilber Sanchez MD [facility] [address] [address] Social History Tobacco Use Types [...] ? JEROME ROSS ? Accession #: ? [id number] : ? 1985 (Age: 21) ??F ?Collect Date: ? 01/03/2007 Location: ? [facility] ? Receive Date: ? 01/04/2007 Provider: ?WILBER SANCHEZ MD Copy to: ? Specimen/Source: ?ThinPrep Pap Test, Cervix/Endocervix, processed on GP[employer] Software ThinPrep Imaging System, with manual evaluation Last [...] electronically signed by: ? JOHN CASTRO MD [facility] ? Report Date: ??01/10/2007 18:10 End of Report [facility] 01/03/2007 01/04/2007 us Wilber Sanchez MD PATHOLOGY ORDERABLES F inal Result [facility] [address] [place] [address] documented in this encounter Visit Diagnoses Not on filedocumented in this encounter Care Teams Food Checker Relationship Specialty Start Date End Date Bailey Swartz MD [address] [phone] PCP - General 08/21/09 11/24/11 Irais Mancilla PA-C [address] [place] [phone] PCP - General 02/04/09 08/20/09 documented as of this encounter
--- OUTSIDE RECORDS SUMMARY | 2024-12-01 10:37 | XMS_ITS | Encounter Summary ---
Author Organization [facility] Address [address] [place] [address] Care Team Providers Care Picker Machine Operator Name Role Phone Unavailable Primary Care Provider Unavailabl e Encounter Details Date Type Department Care Team (Latest Contact Info) Description 07/03/2007 8:46 EDT - 07/03/2007 11:59 EDT Hospital Encounter [facility] - Other [address] [place] [address] Kristi Sánchez, [facility] [address] [place] [address] Discharge Disposition: Home or Self [...]
--- OUTSIDE RECORDS SUMMARY | 2024-12-01 10:37 | XMS_ITS | Encounter Summary ---
Author Organization [facility] Address [address] [place] [address] Care Team Providers Care Grid Inspector Name Role Phone Bailey Swartz MD Primary Care Provider Irais Mancilla PA-C Primary Care Provider Encounter Details Date Type Department Care Team (Late st Contact Info) Description 11/07/[address] Results [address] [facility] conversion [address] [place] [address] Latoya Sánchez, [facility] [address] [place] [address] Social History Tobacco Use Types [...] cancers. [facility] Report Status Final [id number] [facility] 11/07/2007 7:59 EST 11/15/2007 7:59 EST Latoya Sánchez ENVIRONMENTAL PROTECTION GEOLOGIST MICROBIOLOGY - GENERAL CAITIE SQUIRES Final Result [facility] [address] [place] [address] * CYTOPATHOLOGY (11/07/2007 0:00 EST) Pathology Report: CYTOPATHOLOGY REPORT Reports generated via electronic interface contain original data; however they are lacking the format of the original report. Caution should be taken when reading/interpreti ng unformatted reports. Name: ? JEROME ROSS ? Accession #: ? [id number] : ? 1985 (Age: 22) ??F ?Collect Date: ? 11/07/2007 Location: ? [facility] ? Receive Date: ? 11/08/2007 Provider: ?LATOYA SÁNCHEZ ENVIRONMENTAL PROTECTION GEOLOGIST Copy to: ? Specimen/Source: ?ThinPrep Pap Test, Cervix/Endocervix, processed on [employer] ThinPrep Imaging System, with manual evaluation Last [...] undetermined significance (ASC-US). EDUCATIONAL NOTES/RECOMMENDATI ONS ? [facility] recommends following the 2006 Consensus Guidelines for the Management of Women with Abnormal Cervical Cancer Screening Tests (JLGTD, 2007;11(4):201-222 ). ??Consensus guidelines are available online at www.ASCCP.org. ? Document reviewed and electronically signed by: ? Janis Luis MD PhD ? Report Date: ??11/14/2007 12:41 End of Report [facility] 11/07/2007 11/08/2007 us Latoya Sánchez ENVIRONMENTAL PROTECTION GEOLOGIST PATHOLOGY ORDERABLES Final Result Performing Organization Address [facility]/State/[facility] Co de Phone Number [facility] [address] [place] [address] documented in this encounter Visit Diagnoses Not on filedocumented in this encounter Care Teams Grid Inspector Relationship Specialty Start Date End Date Bailey Swartz MD [address] [place] [phone] PCP - General 08/21/09 11/24/11 Irais Mancilla, PATrayC [address] [place] [address] PCP - General 02/04/09 08/20/09 documented as of this encounter
--- OUTSIDE RECORDS SUMMARY | 2024-12-01 10:37 | XMS_ITS | Encounter Summary ---
Author Organization [facility] Address [address] [place] [address] Care Team Providers Care Shake Feeder Name Role Phone Unavailable Primary Care Provider Unavailabl e Encounter Details Date Type Department Care Team (Late st Contact Info) Description 07/23/2004 23:17 EDT Hospital Encounter [facility] - Other [address] [place] [address] Phyllis Hernandez, FAMILY SERVICES WORKER [address] [place] [address] Social History Tobacco Use Types Packs/Day Years [...]
--- OUTSIDE RECORDS SUMMARY | 2024-12-01 10:37 | XMS_ITS | Encounter Summary ---
Author Organization [facility] Address [address] [place] [address] Care Team Providers Care Security Rep Name Role Phone Unavailable Primary Care Provider Unavailabl e Encounter Details Date Type Department Care Team (Latest Contact Info) Description 01/17/2008 10:11 EDT - 01/17/2008 11:59 EDT Hospital Encounter [facility] - Other [address] [place] [address] Desirae Healy PA [address] [place] [address] Discharge Disposition: Home or Self Care Social [...] AUREUS) [facility] Report Status Final [id number] [facility] 01/17/2008 15:0 0 EDT [...] ORDERABLE S Final Result Performing Organization Address City/[facility]/ZIP Co de Phone Number [facility] [address] [place] [address] * CULTURE FOR STAPHYLOCOCCUS COAGULASE POSITIVE (01/17/2008 15:00 EDT) Specimen Description Nares [facility] Result No Staphylococcus coagulase positive isolated [facility] Report Status Final [id number] [facility] 01/17/2008 15:0 0 EDT 01/18/2008 13:41 EDT Desirae CLEMENTS MICROBIOLOGY - GENERAL ORDERABLE S Final Result Performing Organization Address City/[facility]/ZIP Co de Phone Number [facility] [address] [place] [address] documented in this encounter Visit Diagnoses Not on filedocumented in this encounter
--- OUTSIDE RECORDS SUMMARY | 2024-12-01 10:37 | XMS_ITS | Encounter Summary ---
Author Organization [facility] Address [address] [place] [address] Care Team Providers Care Nurse Case Manager Name Role Phone Unavailable Primary Care Provider Unavailabl e Encounter Details Date Type Department Care Team (Latest Contact Info) Description 10/24/2003 7:59 EST - 10/24/2003 11:59 EST Hospital Encounter [address] [address] Zacarias Alves III, ANP [address] [place] [phone] Discharge Disposition: Auto Discharge Social History Tobacco [...]
--- OUTSIDE RECORDS SUMMARY | 2024-12-01 10:37 | XMS_ITS | Encounter Summary ---
Author Organization [facility] Address [address] [place] [address] Care Team Providers Care Disability Rater Name Role Phone Bailey Swartz MD Primary Care Provider Irais Mancilla PA-C Primary Care Provider Encounter Details Date Type Department Care Team (Late st Contact Info) Description 11/22/2005 Office Visit [facility] conversion [address] [place] [address] Tarah Wright MD [address] [place] [phone] Social History Tobacco Use Types Packs/Day Years Used Date Smoking Tobacco: Never Assessed Comments Unknown Sex and Gender Information Value Date Recorded Sex Assigned at Not on file Legal Sex Female 18:30 EST Gender Identity Not on file Sexual Orientation Not on file documented as of this encounter Progress Notes * Sergio, Conv Egyptologist - 12/17/2009 194 EST Department - Physician [...] Seenurses notes. SOCIAL HISTORY Residence: student at [employer]. ADDITIONAL NOTES The nursing notes [...] up with Doctor Syed Kraft PA-C, Orthopedics, [phone] call for appointment in two weeks. Understanding [...] fit with crutches. Crutch training performed by [employer]; the patient demonstrated proper use. --2214 Abby [...] Patient verbalized understanding. Written instructions provided in Ghanaian. The patient wasdischarged home and accompanied by blood collector. The patient left the Emergency Department ambulatory on crutches and via private vehicle. Water Aerobics Instructor driving. --2248 Haley Dinero R.N., E.M.T. Christine McKendrick R.N. Locked/Released at 11/22/2005 22:49 by Lilly Hunter R.N. documented in this encounter Plan of Treatment Not on file documented as of this encounter Visit Diagnoses Not on filedocumented in this encounter Care Teams Disability Rater Relationship Specialty Start Date End Date Bailey Swartz MD [address] [place] [phone] PCP - General 08/21/09 11/24/11 Irais Mancilla, PA-C [address] [place] [address] PCP - General 02/04/09 08/20/09 documented as of this encounter
--- OUTSIDE RECORDS SUMMARY | 2024-12-01 10:37 | XMS_ITS | Encounter Summary ---
Author Organization [facility] Address [address] [place] [address] Care Team Providers Care Dry Mill Operator Name Role Phone Bailey Swartz MD Primary Care Provider [phone] Irais Mancilla PA-C Primary Care Provider Encounter Details Date Type Department Care Team (Late st Contact Info) Description 09/13/2005 Results Only [facility] - Map conversion [address] [place] [address] Phyllis Marcos, US MARKETING DIRECTOR [address] [place], [place] [address] Social History Tobacco Use Types Packs/Day Years [...] ? JEROME ROSS ? Accession #: ? [id number] : ? 1985 (Age: 20) ??F ?Collect Date: ? 09/13/2005 Location: ? [facility] ? Receive Date: ? 09/14/2005 Provider: ?PHYLLIS MARCOS MUSIC TEACHER Copy to: ? Specimen/Source: ?ThinPrep Pap Test, Cervix/Endocervix, processed on [employer] ThinPrep Imaging System, with manual evaluation Last Menstrual Period: ? 09/05/05 Other: ? HPVA - HPV testing requested if ASC-US on the current ThinPrep Pap test. ? SPECIMEN ADEQUACY ? Satisfactory for Evaluation - transformation zone component present GENERAL CATEGORIZATION ? Epithelial Cell Abnormality INTERPRETATION ? Squamous Cell Abnormality - Low grade squamous intraepithelial lesion (LSIL). EDUCATIONAL NOTES/RECOMMENDATI ONS ? [facility] recommends following the 2001 Consensus Guidelines for the Management of Women with Cervical Cytological Abnormalities (GARCÍA,2002;287:212 0-9). Management algorithms have been distributed by [facility] and are available online at www.ASCCP.org. ? Document reviewed and electronically signed by: ? RAUL FALCON MD ? Report Date: ??09/20/2005 16:14 End of Report [facility] 09/13/2005 09/14/2005 us Phyllis Marcos APRN PATHOLOGY ORDERABLES Final Re sult [facility] [address] [place] [address] documented in this encounter Visit Diagnoses Not on filedocumented in this encounter Care Teams Dry Mill Operator Relationship Specialty Start Date End Date Bailey Swartz MD [address] [place] [phone] PCP - General 08/21/09 11/24/11 Irais Mancilla, PA-C [address] [place] [address] [place] [address] PCP - General 02/04/09 08/20/09 documented as of this encounter
--- OUTSIDE RECORDS SUMMARY | 2024-12-01 10:37 | XMS_ITS | Encounter Summary ---
Author Organization [facility] Address [address] [place] [address] Care Team Providers Care Labor Employment Associate Name Role Phone Unavailable Primary Care Provider Unavailabl e Encounter Details Date Type Department Care Team (Late st Contact Info) Description 06/29/2005 18:28 EDT Hospital Encounter [facility] - Other [address] [place] [address] Irina Schuster MD Masson, Mary Y, MENTAL HEALTH SPECIALIST [address] [place] [phone] Discharge Disposition: Auto Discharge Social History Tobacco [...] * (ABNORMAL) TRIGLYCERIDE (06/29/2005 9:00 EDT) Pathologist [facility] Triglycerides 176(H) 35 - 160 mg/dl [facility] 06/29/2005 9:00 EDT 06/29/2005 18:03 EDT Lisa Fragoso MENTAL HEALTH SPECIALIST CHEMISTRY & BLOOD GAS ORDERABLE S Final Result Performing Organization Address [facility] Co de Phone Number [facility] [address] [place] [address] * HCG (06/29/2005 9:00 EDT) [facility] HCG <4 <4 mIU/ml [facility] Comment: Reference Range: Positive = >10 Borderline = 4-10 recommend repeat. Negative = <4 06/29/2005 9:00 EDT 06/29/2005 18:03 EDT Lisa Fragoso MENTAL HEALTH SPECIALIST CHEMISTRY & BLOOD GAS ORDERABLE S Final Result Performing Organization Address [facility] Co de Phone Number [facility] [address] [place] [address] * (ABNORMAL) HEMAGRAM AND DIFFERENTIAL (06/29/2005 9:00 EDT) Pathologist [facility] % Neutrophils 46.2 45.5 - 79.7 % [...] 9:00 EDT 06/29/2005 18:03 EDT Lisa Fragoso MENTAL HEALTH SPECIALIST PACKAGES & DNA PROBE ORDERABLES Final Result Performing Organization Address [facility] de Phone Number [facility] [address] [place] [address] * CHOLESTEROL (06/29/2005 9:00 EDT) Pathologist [facility] Cholesterol 194 mg/dl [facility] Comment: Desirable:<200 Borderline:200-239 High Risk:>ox=848 06/29/2005 9:00 EDT 06/29/2005 18:03 EDT Lisa Fragoso MENTAL HEALTH SPECIALIST CHEMISTRY & BLOOD GAS ORDERABLE S Final Result Performing Organization Address [facility] de Phone Number [facility] [address] [place] [address] * HEMAGRAM AND DIFFERENTIAL (06/29/2005 9:00 EDT) [...] EDT 06/29/2005 18:03 EDT us Lisa Fragoso MENTAL HEALTH SPECIALIST PACKAGES & DNA PROBE ORDERABLES Final Result Performing Organization Address [facility] de Phone Number [facility] [address] [place] [address] * AST (06/29/2005 9:00 EDT) AST 27 15 - 46 U/L [facility] 06/29/2005 9:00 EDT 06/29/2005 18:03 EDT us Lisa Fragoso MENTAL HEALTH SPECIALIST CHEMISTRY & BLOOD GAS ORDERABLE S Final Result Performing Organization Address [facility] de Phone Number [facility] [address] [place] [address] * ALT (06/29/2005 9:00 EDT) ALT 24 9 - 52 U/L [facility] 06/29/2005 9:00 EDT 06/29/2005 18:03 EDT us Lisa Fragoso MENTAL HEALTH SPECIALIST CHEMISTRY & BLOOD GAS ORDERABLE S Final Result Performing Organization Address [facility] de Phone Number [facility] [address] [place] [address] documented in this encounter Visit Diagnoses Not on filedocumented in this encounter
--- OUTSIDE RECORDS SUMMARY | 2024-12-01 10:37 | XMS_ITS | Encounter Summary ---
Author Organization [facility] Address [address] [place] [address] Care Team Providers Care Breakfast Manager Name Role Phone Unavailable Primary Care Provider Unavailabl e Encounter Details Date Type Department Care Team (Late st Contact Info) Description 12/06/2005 14:45 EST [facility] [address] [place] [address] Anshul Campos MD [address] [facility] [address] [place] [address] Discharge Disposition: Auto Discharge Social [...]
--- OUTSIDE RECORDS SUMMARY | 2024-12-01 10:37 | XMS_ITS | Encounter Summary ---
Author Organization [facility] Address [address] [place] [address] Care Team Providers Care Registered Nurse Float Pool Name Role Phone Unavailable Primary Care Provider Unavailabl e Encounter Details Date Type Department Care Team (Late st Contact Info) Description 08/12/2005 16:22 EDT Hospital Encounter [facility] - Other [address] [place] [address] Phyllis Hernandez, INCINERATOR PLANT LABORER [address] [place] [address] Social History Tobacco Use Types Packs/Day Years [...] Results * MONO-TEST (08/12/2005 14:20 EDT) Pathologist [facility]-Test Neg NEG [facility] 08/12/2005 14:2 0 EDT 08/12/2005 19:41 EDT Phyllis Hernandez APRN CHEMISTRY & BLOOD GAS ORDERAB LES Final Result Performing Organization Address [facility]/ZIP Co de Phone Number [facility] [address] [place] [address] * (ABNORMAL) HEMAGRAM AND DIFFERENTIAL (08/12/2005 14:20 EDT) Pathologist [facility] % Neutrophils 62.7 45.5 - 79.7 % [...] ORDERABL ES Final Result Performing Organization Address [facility]/ZIP Co de Phone Number [facility] [address] [place] [address] * (ABNORMAL) HEMAGRAM AND DIFFERENTIAL (08/12/2005 14:20 EDT) WBC 11.32 4.0 - 12.4 K/cmm [facility] RBC 4.46 3.86 - 5.04 M/cmm [facility] Hemoglobin 13.7 11.6 - 15.2 gm/dl [facility] HCT 40.3 34.9 - 44.4 % [facility] MCV 90 81 - 98 fl [facility] MCH 30.6 26.7 - 33.3 pg [facility] MCHC 33.9 32.1 - 35.9 gm/dl [facility] PLT 345(H) 141 - 320 K/cmm [facility] RDW-CV 12.7 11.7 - 14.6 % [facility] 08/12/2005 14:2 0 EDT 08/12/2005 19:41 EDT Phyllis Hernandez APRN PACKAGES & DNA PROBE ORDERABL ES Final Result Performing Organization Address City/[facility]/ZIP Co de Phone Number [facility] [address] [place] [address] * CULTURE FOR GROUP A BETA STREPTOCOCCUS (08/12/2005 14:20 EDT) Specimen Description Throat [facility] Result NO GROUP A BETA STREPTOCOCCI ISOLATED [facility] Report Status Final [id number] [facility] 08/12/2005 14:2 0 EDT 08/12/2005 17:51 EDT Phyllis Hernandez APRN MICROBIOLOGY - GENERAL ORDERA BLES Final Result Performing Organization Address City/[facility]/ZIP Co de Phone Number [facility] [address] [place] [address] documented in this encounter Visit Diagnoses Not on filedocumented in this encounter
--- OUTSIDE RECORDS SUMMARY | 2024-12-01 10:37 | XMS_ITS | Encounter Summary ---
Author Organization [facility] Address [address] [place] [address] Care Team Providers Care Casual Shoe Inspector Name Role Phone Bailey Swartz MD Primary Care Provider [phone] Irais Mancilla PA-C Primary Care Provider Encounter Details Date Type Department Care Team (Late st Contact Info) Description 10/26/2005 Results Only [facility] OBGYN Services - [facility] [address] [place], [place] [id number] Rod Webb MD [address] [facility], [address] [place] [address] Social History Tobacco Use Types [...] was reviewed at intradepartmental consultation conference. ??(Dr. Cox)/[facility] Document reviewed and electronically signed by: [...] 10/26/2005 10/27/2005 9:2 1 EST us Rod eWbb MD PATHOLOGY ORDERABLES Final Result [facility] [address] [place] [address] documented in this encounter Visit Diagnoses Not on filedocumented in this encounter Care Teams Casual Shoe Inspector Relationship Specialty Start Date End Date Bailey Swartz MD [address] [phone] PCP - General 08/21/09 11/24/11 Irais Mancilla, PATrayC [address] [place] [phone] PCP - General 02/04/09 08/20/09 documented as of this encounter
--- OUTSIDE RECORDS SUMMARY | 2024-12-01 10:37 | XMS_ITS | Encounter Summary ---
Author Organization [facility] Address [address] [place] [address] Care Team Providers Care Prosthodontist Name Role Phone Unavailable Primary Care Provider Unavailabl e Encounter Details Date Type Department Care Team (Late st Contact Info) Description 07/09/2003 11:22 EDT Hospital Encounter [facility] - Other [address] [place] [address] Phyllis Hernandez, WEB MERCHANDISER [address] [place] [address] Social History Tobacco Use Types Packs/Day Years [...] bilateral knees. /tns Zacarias Alves III, ANP [facility] O RDERABLES Final Result * KNEE 4 OR MORE VIEWS (08/23/2003 15:48 EST) Anatomical Region Laterality Modality Other 08/23/2003 15:4 8 EST Narrative 06/16/2009 3:41 EDT RT KNEE PAIN IS A RUNNER R/O BONY ABN. Procedure Note Aidan Parr MD - 06/16/2009 RT KNEE PAIN IS A RUNNER R/O BONY ABN. Zacarias Alves III, ANP [facility] O RDERABLES Final Result * CYTOPATHOLOGY (07/09/2003 0:00 EDT) Pathology Report: CYTOPATHOLOGY REPORT Reports generated via electronic interface contain original data; however they are lacking the format of the original report. Caution should be taken when reading/interpreti ng unformatted reports. Name: ? JEROME ROSS ? Accession #: ? [id number] : ? 1985 (Age: 18) ??F ?Collect Date: ? 07/09/2003 Location: ? [facility] ? Receive Date: ? 07/11/2003 Provider: ?PHYLLIS HERNANDEZ PYTHON CONSULTANT Copy to: ?KATJA DALEY MD ? Specimen/Source: [...] Final Re sult [facility] [address] [place] [address] documented in this encounter Visit Diagnoses Not on filedocumented in this encounter
--- OUTSIDE RECORDS SUMMARY | 2024-12-01 10:37 | XMS_ITS | Encounter Summary ---
Author Organization [facility] Address [address] [place] [address] Care Team Providers Care Professional Application Designer Name Role Phone Unavailable Primary Care Provider Unavailabl e Encounter Details Date Type Department Care Team (Late st Contact Info) Description 12/12/2007 22:00 EST Hospital Encounter [facility] - Other [address] [place] [address] Wilber Sanchez MD [address] [place] [phone] Discharge Disposition: Home or Self Care [...]
--- OUTSIDE RECORDS SUMMARY | 2024-12-01 10:37 | XMS_ITS | Encounter Summary ---
Author Organization [facility] Address [address] [place] [address] Care Team Providers Care Blue Split Trimmer Name Role Phone Unavailable Primary Care Provider Unavailabl e Encounter Details Date Type Department Care Team (Late st Contact Info) Description 08/09/2006 9:02 EDT - 08/09/2006 11:59 EDT Hospital Encounter [facility] - Other [address] [place] [address] Wilber Sanchez MD [address] [phone] Discharge Disposition: Home or Self [...]
--- OUTSIDE RECORDS SUMMARY | 2024-12-01 10:37 | XMS_ITS | Encounter Summary ---
Author Organization [facility] Address [address] [place] [address] Care Team Providers Care Marketing Sales Supervisor Name Role Phone Unavailable Primary Care Provider Unavailabl e Encounter Details Date Type Department Care Team (Late st Contact Info) Description 10/26/2005 14:50 EST Hospital Encounter [address] [address] Char Fraser MD [address] [place] [address], [address] [place] [phone] Social History Tobacco Use Types Packs/Day Years [...]
--- OUTSIDE RECORDS SUMMARY | 2024-12-01 10:37 | XMS_ITS | Encounter Summary ---
Author Organization [facility] Address [address] [place] [address] Care Team Providers Care Mandrel Press Hand Name Role Phone Unavailable Primary Care Provider Unavailabl e Encounter Details Date Type Department Care Team (Latest Contact Info) Description 11/11/2002 9:05 EST - 11/11/2002 11:59 EST Hospital Encounter [facility] Emergency Department - [facility] [address] [place], [place] [id number] Emergency, Default, MD Discharge Disposition: Home or [...]
--- OUTSIDE RECORDS SUMMARY | 2024-12-01 10:37 | XMS_ITS | Encounter Summary ---
Author Organization [facility] Address [address] [place] [address] Care Team Providers Care Pets And Pet Supplies Salesperson Name Role Phone Unavailable Primary Care Provider Unavailabl e Encounter Details Date Type Department Care Team (Late st Contact Info) Description 12/09/2005 11:01 EST - 12/09/2005 11:59 EST Hospital Encounter [address] [address] Anshul Campos MD [address] [facility] [address] [place] [address] Discharge Disposition: Auto Discharge Social [...]
--- OUTSIDE RECORDS SUMMARY | 2024-12-01 10:37 | XMS_ITS | Encounter Summary ---
Author Organization [facility] Address [address] [place] [address] Care Team Providers Care Fire Manager Name Role Phone Unavailable Primary Care Provider Unavailabl e Encounter Details Date Type Department Care Team (Late st Contact Info) Description 07/02/2004 8:53 EDT Hospital Encounter [facility] - Other [address] [place] [address] Phyllis Hernandez, TIRE SERVICE SUPERVISOR [address] [place] [address] Social History Tobacco Use Types Packs/Day Years [...]
--- OUTSIDE RECORDS SUMMARY | 2024-12-01 10:37 | XMS_ITS | Encounter Summary ---
Author Organization [facility] Address [address] [place] [address] Care Team Providers Care Photo Mask Inspector Name Role Phone Unavailable Primary Care Provider Unavailabl e Encounter Details Date Type Department Care Team (Latest Contact Info) Description 02/19/2008 22:53 EDT Hospital Encounter [facility] - Other [address] [place] [address] Desirae Healy PA [address] [place] [address] Discharge Disposition: Home or Self Care Social [...] AUREUS) [facility] Report Status Final [id number] [facility] 04/18/2008 13:1 8 EDT [...] ORDERABLE S Final Result Performing Organization Address City/State/[facility] Co de Phone Number [facility] [address] [place] [address] * CULTURE FOR STAPHYLOCOCCUS COAGULASE POSITIVE (04/18/2008 13:17 EDT) Specimen Description Nares [facility] Result Due to transportation circumstances, specimen processing was delayed. Few STAPHYLOCOCCUS COAGULASE POSITIVE (STAPHYLOCOCCUS AUREUS) [facility] Report Status Final [id number] [facility] 04/18/2008 13:1 7 EDT [...] S Final Result [facility] [address] [place] [address] documented in this encounter Visit Diagnoses Not on filedocumented in this encounter
--- OUTSIDE RECORDS SUMMARY | 2024-12-01 10:37 | XMS_ITS | Encounter Summary ---
Author Organization [facility] Address [address] [place] [address] Care Team Providers Care Core Loader Name Role Phone Unavailable Primary Care Provider Unavailabl e Encounter Details Date Type Department Care Team (Latest Contact Info) Description 11/22/2005 21:34 EST Hospital Encounter [facility] Emergency Department - [facility] [address] [place] [address] Emergency, Default, MD Discharge Disposition: Home or [...]
--- OUTSIDE RECORDS SUMMARY | 2024-12-01 10:37 | XMS_ITS | Encounter Summary ---
Author Organization [facility] Address [address] [place] [address] Care Team Providers Care Motor Vehicle Examiner Name Role Phone Unavailable Primary Care Provider Unavailabl e Encounter Details Date Type Department Care Team (Latest Contact Info) Description 08/27/2005 23:20 EST Hospital Encounter [facility] - Other [address] [place] [address] Magdalena Richardson, STARR [address] [place] [address] [place] [address] Discharge Disposition: Home or Self Care Social [...]
--- OUTSIDE RECORDS SUMMARY | 2024-12-01 10:37 | XMS_ITS | Encounter Summary ---
Author Organization [facility] Address [address] [place] [address] Care Team Providers Care Public Policy Manager Name Role Phone Bailey Swartz MD Primary Care Provider Irais Mancilla PA-C Primary Care Provider Encounter Details Date Type Department Care Team (Late st Contact Info) Description 09/20/2003 Results Only [facility] [address] [place] [address] Lisa Fragoso, APPIAN BPM DEVELOPER [address] [place] [address] Social History Tobacco Use Types [...] EST 09/20/2003 18:02 EST us Lisa Fragoso APPIAN BPM DEVELOPER CHEMISTRY & BLOOD GAS ORDERABLE S Final Result Performing Organization Address [facility] Phone Number [facility] [address] [place] [address] * LIVER FUNCTION TESTS (09/20/2003 8:00 EST) [...] Bilirubin 0.0 0.0 - 0.3 mg/dl [facility] Bilirubin, Total 0.2 0.2 - 1.3 mg/dl [facility] 09/20/2003 8:00 EST 09/20/2003 18:02 EST us Lisa Fragoso APPIAN BPM DEVELOPER CHEMISTRY & BLOOD GAS ORDERABLE S Final Result Performing Organization Address [facility] de Phone Number [facility] [address] [place] [address] * HCG (09/20/2003 8:00 EST) HCG <4 mIU/ml [facility] Comment: <4 = Negative 4-10 = Borderline, recommend repeat. 09/20/2003 8:00 EST 09/20/2003 18:02 EST us Lisa Fragoso APPIAN BPM DEVELOPER CHEMISTRY & BLOOD GAS ORDERABLE S Final Result Performing Organization Address [facility]/ZIP Co de Phone Number [facility] [address] [place] [address] * CHOLESTEROL (09/20/2003 8:00 EST) Cholesterol 208 mg/dl [facility] Comment: Desirable:<200 Borderline:200-239 High Risk:>dr=[id number] 09/20/2003 8:00 EST 09/20/2003 18:02 EST us Lisa Fragoso APPIAN BPM DEVELOPER CHEMISTRY & BLOOD GAS ORDERABLE S Final Result [facility] [address] [place] [address] documented in this encounter Visit Diagnoses Not on filedocumented in this encounter Care Teams Public Policy Manager Relationship Specialty Start Date End Date Bailey Swartz MD [address] [place] [phone] PCP - General 08/21/09 11/24/11 Irais Mancilla PATrayC [address] [place] [address] PCP - General 02/04/09 08/20/09 documented as of this encounter
[2024-12-01 16:40] LABS: Bacteria Rare HPF (Negative); C & S Indicated? C&S Done As Ordered; Casts Negative LPF (Negative); Crystals Negative HPF (Negative); Epithelial Cells Rare HPF (Negative); Mucus Negative (Negative); RBC 0-2 HPF (0-2); WBC 20-50 HPF (0-5)
== END 2024-12-01 10:30 | disposition home or self-care (01) ==
LOC: LBN 10:29
PROVIDERS: PCP Nurse Practitioner; Visit Provider Physician Assistant Medical
DX: R30.0 Dysuria (principal)
CPT/HCPCS: 81015; 87086

== ENCOUNTER 2025-03-06 07:33 | Outpatient (CLI) | payer BC, SELFPAY ==
--- NOTE | 2025-03-06 06:00 | DI.RAD_ITS ---
Exam(s) XR PAIN CLINIC FLUORO JOINT IN EXAM: XR PAIN CLINIC FLUORO JOINT IN CLINICAL HISTORY: DX: Right Knee Osteoarthritis TECHNIQUE: 2D and realtime digital imaging was performed. CONTRAST MATERIAL: Refer to procedure report. COMPARISON: No exams were available for comparison FINDINGS: Fluoroscopy was provided for Dr. Ortega during the performance of a right knee injection. Please refe r to the procedure report for complete details. Ka,r=1.76 mGy IMPRESSION: RADIATION DOSE DELIVERED: 0.0 0.0 0
[2025-03-06 07:40] VITALS: BP 102/34; PULSE 57; RESP 18; TEMP 36.5; O2SAT 100
[2025-03-06 08:25] VITALS: PULSE 59; O2SAT 100
--- NOTE | 2025-03-06 08:27 | PDOC.PAIN_ITS ---
Date of service: 03/06/25 Time of Service: 08:28 Pain Managment Procedure Note Procedure Note Procedure Note: PROCEDURE NOTE RIGHT INTRA-ARTICULAR KNEE JOINT SYNVISC- ONE INJECTION Date of Service: March 06, 2025 Patient:? Jerome Robledo? Provider:? Robbin Ortega DO, MPH Jerome Robledo has been referred to the [facility] for RIGHT intra- articular knee joint Synvisc-One injection. Pre-operative diagnosis: Knee Osteoarthritis ICD-10 M16.9 Post-operative diagnosis: Same Pre-procedure pain: VAS=4/10 COMMENTS: I previously evaluated her in the office. Her symptoms are unchanged. Jerome?was interviewed and the medical record was reviewed.? There were no medical, pharmacologic, radiographic or other structural contraindications to attempting fluoroscopically guided RIGHT intra-articular knee joint Synvisc-One injection.? Risks and expected side effects as well as potential benefit of the procedure were reviewed with Jerome, and the patient's voiced concerns were addressed.? The printed consent form was signed.? Standard time-out procedure was performed. Jerome was placed in the supine position on the fluoroscopy table and the pulse oximeter was applied. The skin entry point for approaching superolateral aspect of the RIGHT patellafemoral area was identified under the most advantageous fluoroscopic view and marked. Following thorough Chlorhexadine preparation of the skin and draping, 1% lidocaine infiltration of the skin entry point and subcutaneous tissues was accomplished using a 1.5 25G needle. Next, the 1.5 2 5G needle was advanced to the center of the patella in a lateral to medial approach under fluoroscopic guidance into the RIGHT knee joint. Intra-articular placement was confirmed by a clear arthrogram resulting from the injection of 2 ml Omnipaque 240. Next, the entire Synvisc-One syringe was injected into the knee joint, followed by 3 mls of 1% Lidocaine. This was followed with one ml of 1% lidocaine to clear the needle of any steroid. (48 mls of Omnipaque was wasted). There was no unusual discomfort expressed by Jerome. The needle was withdrawn without difficulty. Jerome was observed and was without hemodynamic, neurologic, or allergic reactions.? Fluoroscopic images were digitally archived. Jerome's vital signs were stable throughout the procedure and were as recorded in the docflowsheet by the nursing staff. If given, dosages of intravenous drugs for anxiolysis and analgesia were documented in MAR. Follow up plans and appointments were discussed with Jerome.? Post procedure i nstruction was given as documented in nursing documentation and having met discharge criteria, Jerome [facility] from the [facility]. COMMENTS: No apparent complications. Post-procedure pain: VAS= 2/10. Jerome to contact [facility] as needed. If at least 50% improvement in pain and/or function for at least 3 months is achieved, this procedure can be repeated. I personally completed the entire procedure. ROBBIN ORTEGA DO, MPH ABPM&R - Subspecialty board certification in Pain Medicine [facility] Coding Conscious Sedation used for procedure: No CPT Codes: Fluoroscopic guidance (non spine inj.) - 96209 (5609201 ~G) Inj,Bursa/Tendon Major (not SI); Ischial Bursa - 77015 (6038878 ~G) Synvisc-One was injected Additional Codes: Date of Service (73201) Date of service: 03/06/25
[2025-03-06 08:35] VITALS: PULSE 60; O2SAT 100
[2025-03-06] MEDS: Hylan G-F 20 48 MG/6 ML SYR IU (08:35)
[2025-03-06] MEDS: Lidocaine 2% Pres-Free 5 ML VIAL IJ (08:35)
[2025-03-06] MEDS: Omnipaque 240 MG/ML 50 ML BTL IJ (08:35)
[2025-03-06] MEDS: Nerve Block Tray 1 EACH MC (08:36)
== END 2025-03-06 07:34 | disposition home or self-care (01) ==
PROVIDERS: PCP Nurse Practitioner; Visit Provider Preventive Medicine Occupational Medicine
DX: M17.11 Unilateral primary osteoarthritis, right knee (principal)
CPT/HCPCS: 20610; 77002; J7325; Q9967

== ENCOUNTER 2025-05-29 13:52 | Outpatient (CLI) | payer BC, SELFPAY ==
[2025-05-31 16:15] LABS: Abs Immature Grans 0.01 10^3/uL (0.0-0.06); HCT 36.0 % (36.0-46.0); HGB 12.0 g/dL (11.2-15.7); Immature Grans % 0.1 %; MCH 29.9 pg (27.0-33.0); MCHC 33.3 % (32.0-36.0); MCV 90 fL (80-95); MPV 10.1 fL (8.0-11.0); Platelet Count 226 10^3/uL (130-400); RBC 4.02 10^6/uL (3.93-5.22); RDW 12.1 % (11.7-14.6); RDW-SD 39.6 fL; WBC 8.46 10^3/uL (4.4-10.8)
[2025-05-31 16:59] LABS: TSH (W/Ref FT4) 1.04 uIU/mL (0.36-3.74)
== END 2025-05-29 13:53 | disposition home or self-care (01) ==
LOC: LBO 06-13 13:54
PROVIDERS: PCP Nurse Practitioner; Visit Provider Obstetrics & Gynecology
DX: N92.0 Excessive and frequent menstruation with regular cycle (principal); N92.4 Excessive bleeding in the premenopausal period
CPT/HCPCS: 36415; 84443; 85025

== ENCOUNTER 2025-06-27 02:58 | Outpatient (CLI) | payer BC, SELFPAY ==
--- NOTE | 2025-06-27 06:30 | DI.MAMMO_ITS ---
Exam(s) MG MAMMO DIAGNOSTIC UNI US BREAST RT COMPLETE EXAM: MG MAMMO DIAGNOSTIC UNI RIGHT AND COMPLETE RIGHT BREAST ULTRASOUND CLINICAL HISTORY: right breast pain,N64.4. TECHNIQUE: Unilateral RIGHT BREAST CC AND MLO MAMMOGRAM images were obtained with 3D tomosynthesis technique and utilizing computer aided detection (CAD). COMPLETE RIGHT BREAST ULTRASOUND performed including all 4 quadrants as well as the retroareolar region and right axilla. COMPARISON: Prior mammograms were reviewed. Patient complaining of generalized pain in the right breast. No trauma. No skin findings. Denies nipple discharge FINDINGS: DIAGNOSTIC RIGHT BREAST MAMMOGRAM: The fibroglandular tissue pattern is again noted be very dense. There are no CAD designations. There are no new mammographic findings in the immediate vicinity of a biopsy marker clip located posteriorly in the upper outer quadrant. There are no new spiculated masses nor malignant-appearing microcalcification groups in the right breast and there is no new architectural distortion or skin thickening-retraction. COMPLETE RIGHT BREAST ULTRASOUND: There are 2 microcysts at the 9 o'clock position, the larger measuring 5 mm. There is another 2-3 mm microcyst at the 10 o'clock position. Another 6 millimeter superficial microcyst more centrally at the 4 o'clock position. Most importantly, there are no solid lesions in all 4 quadrants. No dilated ducts evident. Scanning of the right axilla is negative for significant adenopathy. IMPRESSION: 1. Dense tissue on mammography but no radiographic evidence of malignancy. 2. There few benign microcysts in the right breast as described above seen on ultrasound. No solid lesions seen on ultrasound. 3. No axillary adenopathy. If symptoms persist for few weeks then one might consider breast MRI study. The patient was informed of the findings and follow-up by myself recommendations prior to leaving the department today. BI-RADS Category 2 - Benign Findings Breast Density - Category D - The breast are extremely dense, which lowers the sensitivity of the mammography. Breast density Category C or D implies that the patient has dense breast tissue. Dense breast tissue can make it harder to find cancer on a mammogram. Dense breast tissue is also associated with an increased risk of breast cancer. This information about the result of the mammogram report was provided to the patient to raise their awareness. Use this report when you speak with the patient about their risks for breast cancer, which includes their family history. At that time, you may recommend additional screening tests (Ultrasound or MRI) as these tests may add significant information. A negative radiographic report should not delay biopsy if a dominant or clinically suspicious mass is present. Up to ten percent of cancers are not identified on mammography. A negative report may reinforce clinical impression. Adenosis and dense breasts may obscure an underlying neoplasm. False positive reports average 6 to 10%. Patient will receive a letter notifying them of these results.
== END 2025-06-27 03:18 ==
LOC: DI 02:58
PROVIDERS: PCP Nurse Practitioner; Visit Provider Obstetrics & Gynecology
DX: Z12.31 Encounter for screening mammogram for malignant neoplasm of breast (principal); N64.4 Mastodynia; N63.15 Unspecified lump in the right breast, overlapping quadrants
CPT/HCPCS: 76642; 77061; 77065; G0279

== ENCOUNTER 2025-06-28 03:51 | Outpatient (CLI) | payer BC, SELFPAY ==
--- NOTE | 2025-06-28 | DI.CT_ITS ---
Exam(s) CT ABDOMEN PELVIS W EXAM: CT ABDOMEN PELVIS W CLINICAL HISTORY: NAUSEA W/O VOMITING R11.0 LOSS APPETITE R63.0 WEIGHT LOSS R63.4 DYSPEPSIA. TECHNIQUE: Imaging Protocol: Axial computed tomography images with coronal and sagittal reformatted images were created and reviewed CONTRAST MATERIAL: Intravenous: Omnipaque 350 Contrast volume:75 ml Oral: yes COMPARISON: CT CT ABDOMEN PELVIS W from 01/03/[address] CHEST PE CTA from 07/08/2023 CT,NM,TMT NM MPI REST STRESS GRP from 10/04/2024 US US PELVIS TRANSVAGINAL from 06/03/2025 FINDINGS: ABDOMEN and PELVIS: Lung Bases: No acute findings. Liver: Normal density. No suspicious mass. Gallbladder and biliary tract: No radiodense calculus. No wall thickening or pericholecystic fluid. No biliary dilation. Pancreas: Normal density. No abnormal calcifications or inflammatory process. No evidence of mass. Spleen: Normal. Kidneys: Normal size, contour and axis. No radiodense stones. No obstructive uropathy. No suspicious masses seen. Adrenal glands: No masses seen. Vasculature: Abdominal aorta non-dilated. Soft tissues: Unremarkable. Bladder: No gross wall thickening. No calculi.No focal mass. Bowel: No obstruction. No bowel wall thickening. Appendix normal. Peritoneal cavity: No ascites. No focal collection. No mesenteric inflammatory response. No free air. Bones: Unremarkable for age. Reproductive organs: Unremarkable. Lymph nodes: No pathologically enlarged lymph nodes. IMPRESSION:: No acute abnormality in the abdomen or pelvis. RADIATION DOSE DELIVERED: Total DLP DATA REPOSITORY: All CT scans at this facility are submitted to the National Radiology Data Registry (NRDR) Dose Index Registry (DIR) with the [employer] (ACR). RADIATION OPTIMIZATION: All CT scans at this facility use at least one of these dose optimization techniques: automated exposure control; mA and/or kV adjustment per patient size (includes targeted exams where dose is matched to clinical indication); or iterative reconstruction.
[2025-06-28] MEDS: Barium Sulfate 2% W/V-Berry Smoothie 450 ML BTL PO ×2 (13:34→13:35)
[2025-06-28] MEDS: Normal Saline - Diluent 50 ML VIAL IJ (14:28)
[2025-06-28] MEDS: Omnipaque 350 MG/ML 100 ML BTL IJ (14:29)
[2025-06-28] MEDS: Normal Saline Flush 10 ML SYR IVP (14:30)
== END 2025-06-28 04:11 ==
PROVIDERS: PCP Nurse Practitioner; Visit Provider Nurse Practitioner Family
DX: R11.0 Nausea (principal); R63.0 Anorexia; R63.4 Abnormal weight loss; R10.13 Epigastric pain; R19.5 Other fecal abnormalities
CPT/HCPCS: 74177; J3490

== ENCOUNTER 2025-07-16 04:49 | Outpatient (CLI) | payer BC, SELFPAY ==
[2025-07-16 17:03] LABS: Abs Immature Grans 0.01 10^3/uL (0.0-0.06); HCT 36.2 % (36.0-46.0); HGB 12.1 g/dL (11.2-15.7); Immature Grans % 0.1 %; MCH 29.7 pg (27.0-33.0); MCHC 33.4 % (32.0-36.0); MCV 89 fL (80-95); MPV 9.7 fL (8.0-11.0); Platelet Count 192 10^3/uL (130-400); RBC 4.08 10^6/uL (3.93-5.22); RDW 11.8 % (11.7-14.6); RDW-SD 38.0 fL; WBC 7.93 10^3/uL (4.4-10.8)
[2025-07-16 18:19] LABS: ALT 19 U/L (14-59); AST 18 U/L (15-37); Albumin 3.9 g/dL (3.4-5.0); Alkaline Phosphatase 33 U/L (46-116); Anion Gap 7.3 mmol/L (3-11); BUN 8 mg/dL (7-18); Bilirubin, Total 0.3 mg/dL (0.2-1.0); CO2 27.7 mmol/L (21.0-32.0); Calcium 8.8 mg/dL (8.5-10.1); Chloride 102 mmol/L (98-107); Estimated GFR 82.37 (mL/min/1.73m2); Glucose 85 mg/dL (74-106); Potassium 3.5 mmol/L (3.5-5.1); Sodium 137 mmol/L (136-145); TSH (W/Ref FT4) 1.36 uIU/mL (0.36-3.74); Total Protein 7.3 g/dL (6.4-8.2)
[2025-07-16 18:33] LABS: C-Reactive Protein < 0.50 mg/dL (<or=0.5)
== END 2025-07-16 04:50 | disposition home or self-care (01) ==
LOC: LBO 07-17 04:50
PROVIDERS: PCP Nurse Practitioner; Visit Provider Nurse Practitioner Family
DX: R11.0 Nausea (principal); R63.0 Anorexia; R63.4 Abnormal weight loss; R10.13 Epigastric pain; R19.5 Other fecal abnormalities
CPT/HCPCS: 36415; 80053; 84443; 85025; 86140

== ENCOUNTER 2025-07-18 07:14 | Outpatient (REF) | payer BC, SELFPAY ==
[2025-07-18 20:44] LABS: Campylobacter PCR Negative (Negative); Shiga Toxin PCR Negative (Negative); Shigella/Enteroinvasive Ecoli Negative (Negative)
[2025-07-19 14:34] LABS: Helicobacter pylori Ag, Feces Negative (Negative)
== END 2025-07-18 07:15 | disposition home or self-care (01) ==
LOC: LBN 07:14
PROVIDERS: PCP Nurse Practitioner; Visit Provider Nurse Practitioner Family
DX: R11.0 Nausea (principal); R63.0 Anorexia; R63.4 Abnormal weight loss; R10.13 Epigastric pain; R19.5 Other fecal abnormalities
CPT/HCPCS: 87015; 87269; 87272; 87338; 87505; 83993

== ENCOUNTER 2025-09-10 17:37 | Outpatient (REF) | payer BC, SELFPAY ==
--- NOTE | 2025-09-10 15:15 | ENDOMET_PTH ---
PATIENT: Jerome Robledo LOC: [facility] U#:[id number] AGE/SX: 40/F ROOM: RE09/10/[address]: Brooke Sharma MD : 1985 BED: DIS: 09/10/2025 SPEC #: [id number] RECD: 09/10/25 17:59 STATUS: RICH REJavier #: [id number] DANNI: 09/10/25 15:[address]: Brooke Sharma DEPT: Surgical Specimen RECD BY: Cindy Avendano ENTERED: 09/10/25 18:01 SP TYPE: Endomet OTHR DR: Rebekah Greco APRN Tissues: 1 - ENDOMETRIUM BX/DEVIKA Procedures: GROSS AND MICRO LEVEL 4 Comments: [id number]
== END 2025-09-10 17:38 | disposition home or self-care (01) ==
LOC: LBN 17:37
PROVIDERS: PCP Nurse Practitioner; Visit Provider Obstetrics & Gynecology
DX: N85.8 Other specified noninflammatory disorders of uterus (principal)
CPT/HCPCS: 88305

== ENCOUNTER 2025-09-18 11:52 | Outpatient (CLI) | payer BC, SELFPAY ==
[2025-09-18 12:19] LABS: Abs Immature Grans 0.02 10^3/uL (0.0-0.06); HCT 39.4 % (36.0-46.0); HGB 13.1 g/dL (11.2-15.7); Immature Grans % 0.2 %; MCH 29.6 pg (27.0-33.0); MCHC 33.2 % (32.0-36.0); MCV 89 fL (80-95); MPV 9.1 fL (8.0-11.0); Platelet Count 215 10^3/uL (130-400); RBC 4.43 10^6/uL (3.93-5.22); RDW 12.3 % (11.7-14.6); RDW-SD 40.3 fL; WBC 8.55 10^3/uL (4.4-10.8)
[2025-09-18 12:50] LABS: Ferritin 11 ng/mL (7-271); TSH (W/Ref FT4) 0.75 uIU/mL (0.55-4.78)
[2025-09-18 15:27] LABS: Iron 164 ug/dL (50-170); Total Iron Binding Capacity 434 ug/dL (250-425); Transferrin Sat 38 % (15-50)
[2025-09-20 14:22] LABS: Coag FactorVIII Activity Assay 109 % (55 - 200)
== END 2025-09-18 11:53 | disposition home or self-care (01) ==
LOC: LBO 11:52
PROVIDERS: PCP Nurse Practitioner; Visit Provider Obstetrics & Gynecology
DX: N93.9 Abnormal uterine and vaginal bleeding, unspecified (principal)
CPT/HCPCS: 36415; 85240; 85246; 85390; 85397; 82728; 83540; 83550; 84443; 85025

== ENCOUNTER 2025-10-01 11:23 | Outpatient (REF) | payer BC, SELFPAY ==
[2025-10-02 12:07] LABS: Chlamydia Result Negative (Negative); GC Result Negative (Negative)
== END 2025-10-01 11:24 | disposition home or self-care (01) ==
LOC: LBN 11:23
PROVIDERS: PCP Nurse Practitioner; Visit Provider Obstetrics & Gynecology
DX: Z12.4 Encounter for screening for malignant neoplasm of cervix (principal)
CPT/HCPCS: 87491; 87591; 88142; 87624

== ENCOUNTER → 2025-10-11 00:04 | Outpatient (CLI) | payer BC, SELFPAY ==
--- NOTE | 2025-10-11 08:30 | DI.MRI_ITS ---
Exam(s) MR UPPER JOINT RT WO EXAM: MR UPPER JOINT RT WO CLINICAL HISTORY: PAIN m25.521 pain rt elbow TECHNIQUE: Multiplanar multisequence MRI was performed without intravenous contrast. COMPARISON: MR MR UPPER JOINT RT WO from 04/02/2021 FINDINGS: MARROW: There is no evidence of fracture, bone contusion, nor ominous osseous lesions. ELBOW JOINT: There is no evidence of elbow joint effusion.No significant cartilage loss nor osteochondral defect and there is no evidence of loose intra- articular body. There are no osteophytes. EPICONDYLES: There is no abnormal intraosseous signal in the epicondyles and there is no significant abnormal signal on the common extensor and flexor tendons. ULNAR COLLATERAL LIGAMENT: The anterior band which extends from the medial epicondyle to the sublime tubercle of the coronoid process of the ulna is intact. This structure is the strongest ligament in the elbow and is the main opponent to severe valgus stress. RADIAL COLLATERAL LIGAMENT: Intact TENDONS: The biceps tendon is intact. The brachialis tendon is intact. Posteriorly the triceps tendon appears intact. However, there is abnormal signal in the soft tissues just lateral to the triceps insertion within the anconeus muscle, consistent with partial tearing or myositis CUBITAL TUNNEL/ULNAR NERVE: The ulnar nerve appears unremarkable beneath the cubital tunnel retinaculum/ arcuate ligament and posterior to the medial epicondyle. There is no evidence of arthritic spur arising from the epicondyle nor olecranon causing impingement on the ulnar nerve. There is no evidence of accessory anconeus muscle causing impingement at this level. There is also no evidence of soft tissue mass nor ganglia on cyst causing impingement at this level. IMPRESSION: 1. Main findings here are in the posterior lateral aspect of the elbow where there is significant signal abnormality in the anconeus muscle posterior to lateral epicondyle. Findings are consistent with partial tearing or myositis involving this muscle. There is no other abnormal intramuscular signal around the elbow and there is no elbow joint effusion. DATA REPOSITORY:
== END ==
LOC: DI 00:04
PROVIDERS: PCP Nurse Practitioner; Visit Provider Student in an Organized Health Care Education/Training Program
DX: M25.521 Pain in right elbow (principal)
CPT/HCPCS: 73221